=== PATIENT | female | born 1940 | race Hispanic/Latino ===

== ENCOUNTER 2017-05-17 12:38 | Inpatient (IN) | payer MEDICARE ==
[2017-05-17 12:39] VITALS: BMI 32.4
[2017-05-17] MEDS ORDERED: diltiaZEM IVPB 100mg in NS 100 ML IV PRN ×2 (12:51→20:47)
[2017-05-17] MEDS ORDERED: Dextrose 50% SYRINGE Inj (50 ml) IVP STA (12:52)
[2017-05-17] MEDS ORDERED: Ipratropium 0.02% Inhal Soln (0.5 mg/2.5 ml) UD IH STA (12:54)
[2017-05-17] MEDS ORDERED: Aspirin 325 mg EC Tablets PO STA (12:56)
[2017-05-17 12:59] LABS: BASO # 0.02 K/mm3 (0.0-2.0); BASO % 0.1 % (0.0-3.0); EOS # 0.2 (0.0-0.7); EOS % 0.9 % (1.5-5.0); GRAN # 10.28 (1.4-6.5); GRAN % 62.3 % (50.0-68.0); LYMPH # 3.9 (1.2-3.4); LYMPH % 23.6 % (22.0-35.0); MEAN CELL VOLUME 97.6 fl (80.0-105.0); MEAN CORPUSCULAR HEMOGLOBIN 32.8 pg (25.0-35.0); MEAN CORPUSCULAR HGB CONC 33.6 g/dl (31.0-37.0); MEAN PLATELET VOLUME 11.6 fl (7.0-11.0); MONO # 2.2 (0.1-0.6); MONO % 13.1 % (1.0-6.0); RED CELL DISTRIBUTION WIDTH 13.6 % (11.5-14.5); WHITE BLOOD COUNT 16.5 10^3/ul (4.5-11.0)
[2017-05-17] MEDS ORDERED: Dextrose 50% SYRINGE Inj (50 ml) ONE (12:59)
--- NOTE | 2017-05-17 13:01 | ED PDOC ---
Arrival/HPI - General Chief Complaint: Palpitations Time Seen by Provider: 05/17/17 12:42 - History of Present Illness Narrative History of Present Illness (Text): A 75 year of female, whose past medical history includes chronic obstructive pulmonary disease, hypertension, hypercholesterolemia and diabetes, afib on ac presents bibems to the Emergency Room complaining of shortness of breath for 2 weeks/dry couyh/worsening pnd/hung / and decrementation of her et , limiting her ambulation aoround house . She reports the shortness of breath is worse on exertion originally and now even with rest , but deneis any peripheral edema/ chest pain. EMS found her in a narrow complex irregular tachycardia at 180-220, and w/ fsg in 50's and gave 20 mg then 30 mg cardizem ivp to bring rate to 130' s-140's. Pt drank orange juice to address her low bp. PMD Dr. Cordoba Past Medical History - Provider Review Nursing Documentation Reviewed: Yes - Infectious Disease Hx of Infectious Diseases: None - Tetanus Immunization Tetanus Immunization: Unknown - Reproductive Menopause: Yes - Cardiac Hx Cardiac Disorders: Yes Hx Hypertension: Yes Hx Peripheral Vascular Disease: Yes (peripheral neurapathy) Other/Comment: cardiac stent - Pulmonary Hx Asthma: Yes Hx Chronic Obstructive Pulmonary Disease (COPD): Yes - Neurological Hx Transient Ischemic Attacks (TIA): Yes - HEENT Hx HEENT Disorder: (allergic rhinitis) - Endocrine/Metabolic Hx Diabetes Mellitus Type 1: Yes - Hematological/Oncological Hx Blood Transfusions: No Hx Blood Transfusion Reaction: No - Musculoskeletal/Rheumatological Hx Musculoskeletal Disorders: (cervical disc disease) Hx Back Pain: Yes Hx Falls: No Hx Osteoarthritis: Yes Hx Spinal Stenosis: Yes (lumbar spine) - Gastrointestinal Hx Gastrointestinal Disorders: (ibs) - Psychiatric Hx Depression: Yes Hx Substance Use: No - Surgical History Hx Appendectomy: Yes Hx Cardiac Catheterization: Yes (06/27/2012) Hx Cholecystectomy: Yes Hx Coronary Artery Bypass Graft: Yes (2 stents 2009) Hx Coronary Stent: Yes (2009) - Anesthesia Hx Anesthesia Reactions: No Hx Malignant Hyperthermia: No - Suicidal Assessment Feels Threatened In Home Enviroment: No Family/Social History - Physician Review Nursing Documentation Reviewed: Yes Family/Social History: No Known Family HX Smoking Status: Never Smoked Hx Alcohol Use: No Hx Substance Use: No Allergies/Home Meds Allergies/Adverse Reactions: Allergies Penicillins Allergy (Verified 05/17/17 20:01) RASH shrimp Allergy (Verified 05/17/17 20:01) RASH clarithromycin Adverse Reaction (Verified 05/17/17 20:01) RASH Home Medications: Home Meds Medication Instructions Recorded Confirmed Furosemide 20 mg PO DAILY 01/24/12 05/17/17 Galantamine Hydrobromide [Razadyne] 24 mg PO DAILY 01/24/12 05/17/17 Rosuvastatin Calcium [Crestor] 10 mg PO DAILY 01/24/12 05/17/17 Review of Systems - Physician Review All systems were reviewed & negative as marked: Yes - Review of Systems Constitutional: Normal Eyes: Normal ENT: Normal Respiratory: SOB, Cough Cardiovascular: Normal Gastrointestinal: Normal Genitourinary Female: Normal Musculoskeletal: Normal Skin: Normal Neurological: Normal Endocrine: Normal Hemo/Lymphatic: Normal Psychiatric: Normal Physical Exam Vital Signs Reviewed: Yes Vital Signs Temp Pulse Resp BP Pulse Ox 05/17/17 20:03 131 H 17 143/67 96 05/17/17 19:52 137 H 156/90 H 05/17/17 19:13 104 H 18 161/110 H 96 05/17/17 19:05 98.1 F 05/17/17 19:00 120 H 16 138/85 96 05/17/17 18:52 136 H 151/108 H 05/17/17 14:44 135 H 145/81 05/17/17 14:39 136 H 16 135/87 96 05/17/17 14:14 153 H 120/84 05/17/17 14:01 161 H 158/80 H 05/17/17 13:38 161 H 144/73 05/17/17 13:05 149 H 161/116 H Temperature: Afebrile Blood Pressure: Hypertensive Pulse: Tachycardic Respiratory Rate: Normal Appearance: Positive for: Well-Appearing, Non-Toxic, Comfortable Pain Distress: None Mental Status: Positive for: Alert and Oriented X 3 Finger Stick Blood Glucose: 66 - Systems Exam Head: Present: Atraumatic, Normocephalic Pupils: Present: PERRL Extroacular Muscles: Present: EOMI Conjunctiva: Present: Normal Mouth: Present: Moist Mucous Membranes Neck: Present: Normal Range of Motion Respiratory/Chest: Present: Good Air Exchange, Other (slightly reduced bs bibasilarly ). No: Respiratory Distress, Accessory Muscle Use Cardiovascular: Present: Normal S1, S2, Irregular Rhythm, Peripheal Pulses Present, Tachycardic. No: Murmurs Abdomen: Present: Normal Bowel Sounds. No: Tenderness, Distention, Peritoneal Signs Back: Present: Normal Inspection Upper Extremity: Present: Normal Inspection. No: Cyanosis, Edema Lower Extremity: Present: Normal Inspection. No: Edema Neurological: Present: GCS=15, CN II-XII Intact, Speech Normal, Motor Func Grossly Intact, Normal Sensory Function, Normal Cerebellar Funct, Norm Deep Tendon Reflexes, Gait Normal, Memory Normal, Normal 2Pt Descrimination Skin: Present: Warm, Dry, Normal Color. No: Rashes Psychiatric: Present: Alert, Oriented x 3, Normal Insight, Normal Concentration Medical Decision Making ED Course and Treatment: Afib w/ RVR @ 153 bpm, no acute ischemic st-t segments, no arrythmogeic intervals 05/17/17 13:05 05/17/17 20:14 77 y/o woman w/ aformentioned comorbidities presents c/o 2 weeks of worsiening sob/hung , found to be in afib w/ rvr , rate control difficult to acheive, will be admitted to MICU as a result. - Lab Interpretations Lab Results: 05/17/17 12:50 05/17/17 12:50 Lab Results 05/17/17 13:57: Urine Color Yellow, Urine Appearance Sl cloudy, Urine pH 6.0, Ur Specific [place] 1.025, Urine Protein 30 H, Urine Glucose (UA) 250 H, Urine Ketones Negative, Urine Blood Negative, Urine Nitrate Negative, Urine Bilirubin Negative, Urine Urobilinogen 0.2, Ur Leukocyte Esterase Negative, Urine RBC Negative, Urine WBC 2 - 5, Ur Epithelial Cells 4 - 5, Urine Bacteria Few 05/17/17 13:00: pO2 85 H, VBG pH 7.37, VBG pCO2 41.0, VBG HCO3 23.7, VBG Total CO2 25.0, VBG O2 Sat (Calc) 97.3 H, VBG Base Excess -1.5 L, VBG Potassium 3.5 L , Glucose 209 H, Lactate 2.6 H, FiO2 21.0, Sodium 139.0, Chloride 109.0 H, Venous Blood Potassium 3.5 L 05/17/17 12:50: Sodium 141, Potassium 3.7, Chloride 108 H, Carbon Dioxide 21, Anion Gap 16, BUN 19, Creatinine 0.7, Est GFR ( Amer) > 60, Est GFR (Non- Af Amer) > 60, Random Glucose 79, Calcium 10.0, Total Bilirubin 0.7, AST 39 H, ALT 48, Alkaline Phosphatase 67, Lactate Dehydrogenase 543, Total Creatine Kinase 206, Troponin I 0.04 D, NT-Pro-B Natriuret Pep 2610 H, Total Protein 8.2 , Albumin 4.4, Globulin 3.8, Albumin/Globulin Ratio 1.2 05/17/17 12:50: PT 11.9, INR 1.08, APTT 28.6 05/17/17 12:50: WBC 16.5 H D, RBC 4.51, Hgb 14.8, Hct 44.0, MCV 97.6, MCH 32.8, MCHC 33.6, RDW 13.6, Plt Count 323, MPV 11.6 H, Gran % 62.3, Lymph % (Auto) 23.6 , [place] % (Auto) 13.1 H, Eos % (Auto) 0.9 L, Baso % (Auto) 0.1, Gran # 10.28 H, Lymph # 3.9 H, [place] # 2.2 H, Eos # 0.2, Baso # 0.02 - RAD Interpretation Radiology Orders: 05/17/17 14:26 CHEST PORTABLE [RAD] Stat - Medication Orders Current Medication Orders: Acetaminophen (Tylenol 325mg Tab) 650 mg PO Q6H PRN PRN Reason: Fever >100.4 F Albuterol/Ipratropium (Duoneb 3 Mg/0.5 Mg (3 Ml) Ud) 3 ml IH Q2H PRN PRN Reason: Shortness of Breath Last Admin: 05/17/17 20:04 Dose: 3 ml Aspirin (Ecotrin) 81 mg PO DAILY MIRNA Atorvastatin Calcium (Lipitor) 40 mg PO DAILY MIRNA Furosemide (Lasix) 40 mg IVP DAILY MIRNA diltiaZEM IVPB 100mg in NS (Cardizem 100mg In Ns) 100 mls @ 5 mls/hr IV .Q20H PRN; Protocol; 5 MG/HR PRN Reason: TITRATE PER MD ORDER Last Admin: 05/17/17 14:44 Dose: 20 mls/hr eMAR Start Stop Document 05/17/17 14:44 SE (Rec: 05/17/17 14:44 SE [id number]) Intravenous Solution Start Date 05/17/17 Start Time 14:44 MAR Pulse and Blood Pressure Document 05/17/17 14:44 SE (Rec: 05/17/17 14:44 SE [id number]) Pulse Pulse Rate (60-90 beats/min) 135 Blood Pressure Blood Pressure (100/60-150/90 mm Hg) 145/81 Doxycycline Hyclate 100 mg/ (Sodium Chloride) 100 mls @ 100 mls/hr IVPB Q12 MIRNA PRN Reason: Protocol Insulin Detemir (Levemir) 25 unit SC HS MIRNA Insulin Human Lispro (Humalog High) 0 units SC ACHS MIRNA PRN Reason: Protocol Insulin Human Regular (Humulin R Med) 0 units SC ACHS MIRNA PRN Reason: Protocol Levalbuterol HCl (Xopenex) 1.25 mg IH [id number] MIRNA Methylprednisolone (Solu-Medrol) 40 mg IV TID MIRNA Ondansetron HCl (Zofran Inj) 4 mg IVP Q6H PRN PRN Reason: Nausea/Vomiting Pantoprazole Sodium (Protonix Ec Tab) 40 mg PO 0630 MIRNA Verapamil HCl (Calan Tab) 80 mg PO TID MIRNA Discontinued Medications Aspirin (Ecotrin) 325 mg PO STAT STA Stop: 05/17/17 12:57 Last Admin: 05/17/17 13:19 Dose: 325 mg Dextrose (Dextrose 50% Inj) 50 ml IVP STAT STA Stop: 05/17/17 12:53 Last Admin: 05/17/17 12:58 Dose: 50 ml IVP Administration Document 05/17/17 12:58 SE (Rec: 05/17/17 12:58 SE [id number]) Charges for Administration # of IVP Administrations 1 Digoxin (Lanoxin) 0.25 mg IVP STAT STA Stop: 05/17/17 16:42 Last Admin: 05/17/17 16:48 Dose: 0.25 mg MAR Apical Pulse Rate Document 05/17/17 16:48 SE (Rec: 05/17/17 16:49 SE [id number]) Apical Pulse Rate Apical Pulse Rate (60-90 beats/min) 151 IVP Administration Document 05/17/17 16:48 SE (Rec: 05/17/17 16:49 SE [id number]) Charges for Administration # of IVP Administrations 1 Digoxin (Lanoxin) 0.25 mg IVP ONCE ONE Stop: 05/17/17 18:01 Last Admin: 05/17/17 18:02 Dose: 0.25 mg MAR Apical Pulse Rate Document 05/17/17 18:02 SE (Rec: 05/17/17 18:03 SE [id number]) Apical Pulse Rate Apical Pulse Rate (60-90 beats/min) 139 IVP Administration Document 05/17/17 18:02 SE (Rec: 05/17/17 18:03 SE [id number]) Charges for Administration # of IVP Administrations 1 Diltiazem HCl (Cardizem) 30 mg IVP STAT STA Stop: 05/17/17 14:11 Last Admin: 05/17/17 14:14 Dose: 30 mg IVP Administration Document 05/17/17 14:14 SE (Rec: 05/17/17 14:16 SE [id number]) Charges for Administration # of IVP Administrations 1 MAR Pulse and Blood Pressure Document 05/17/17 14:14 SE (Rec: 05/17/17 14:16 SE [id number]) Pulse Pulse Rate (60-90 beats/min) 153 Blood Pressure Blood Pressure (100/60-150/90 mm Hg) 120/84 diltiaZEM IVPB 100mg in NS (Cardizem 100mg In Ns) 100 mls @ 5 mls/hr IV .Q20H PRN; Protocol; 5 MG/HR PRN Reason: TITRATE PER MD ORDER Doxycycline Hyclate 100 mg/ (Sodium Chloride) 100 mls @ 100 mls/hr IVPB ONCE ONE PRN Reason: Protocol Stop: 05/17/17 13:52 Last Admin: 05/17/17 13:54 Dose: 100 mls/hr Comments: late due to waiting on pharm to send med eMAR Start Stop Document 05/17/17 13:54 SE (Rec: 05/17/17 13:54 SE [id number]) Intravenous Solution Start Date 05/17/17 Start Time 13:54 Sodium Chloride (Sodium Chloride 0.9%) 500 mls @ 999 mls/hr IV .Q31M STA Stop: 05/17/17 14:53 Last Admin: 05/17/17 14:26 Dose: 999 mls/hr eMAR Start Stop Document 05/17/17 14:26 SE (Rec: 05/17/17 14:26 SE [id number]) Intravenous Solution Start Date 05/17/17 Start Time 14:26 Sodium Chloride (Sodium Chloride 0.9%) 500 mls @ 999 mls/hr IV .Q31M STA Stop: 05/17/17 14:57 Last Admin: 05/17/17 14:48 Dose: Ipratropium [place] (Atrovent) 0.5 mg IH STAT STA Stop: 05/17/17 12:55 Last Admin: 05/17/17 13:04 Dose: 0.5 mg Methylprednisolone (Solu-Medrol) 125 mg IVP STAT STA Stop: 05/17/17 12:53 Last Admin: 05/17/17 12:58 Dose: 125 mg IVP Administration Document 05/17/17 12:58 SE (Rec: 05/17/17 12:59 SE [id number]) Charges for Administration # of IVP Administrations 1 Metoprolol Tartrate (Lopressor) 5 mg IVP STAT STA Stop: 05/17/17 18:24 Last Admin: 05/17/17 18:52 Dose: 5 mg IVP Administration Document 05/17/17 18:52 SE (Rec: 05/17/17 18:53 SE [id number]) Charges for Administration # of IVP Administrations 1 MAR Pulse and Blood Pressure Document 05/17/17 18:52 SE (Rec: 05/17/17 18:53 SE [id number]) Pulse Pulse Rate (60-90 beats/min) 136 Blood Pressure Blood Pressure (100/60-150/90 mm Hg) 151/108 Metoprolol Tartrate (Lopressor) 5 mg IVP STAT STA Stop: 05/17/17 19:44 Last Admin: 05/17/17 19:52 Dose: 5 mg IVP Administration Document 05/17/17 19:52 SE (Rec: 05/17/17 19:55 SE [id number]) Charges for Administration # of IVP Administrations 1 MAR Pulse and Blood Pressure Document 05/17/17 19:52 SE (Rec: 05/17/17 19:55 SE [id number]) Pulse Pulse Rate (60-90 beats/min) 137 Blood Pressure Blood Pressure (100/60-150/90 mm Hg) 156/90 Disposition/Present on Arrival - Present on Arrival Any Indicators Present on Arrival: No History of DVT/PE: No History of Uncontrolled Diabetes: No Urinary Catheter: No History of Decub. Ulcer: No History Surgical Site Infection Following: None - Disposition Have Diagnosis and Disposition been Completed?: Yes Diagnosis: COPD exacerbation, CHF (congestive heart failure), Atrial fibrillation Disposition: HOSPITALIZED Disposition Time: 20:13 Patient Plan: ICU Condition: FAIR
[2017-05-17] MEDS: diltiaZEM IVPB 100mg in NS 100 ML IV PRN ×6 (13:05→20:51)
[2017-05-17 13:12] LABS: ALB/GLOB RATIO 1.2 (1.1-1.8); ALKALINE PHOSPHATASE 67 U/L (38-126); ALT/SGPT 48 U/L (7-56); AST/SGOT 39 U/L (14-36); BILIRUBIN,TOTAL 0.7 mg/dL (0.2-1.3); BLOOD UREA NITROGEN 19 mg/dL (7-21); CARBON DIOXIDE 21 mmol/L (21-33); CHLORIDE 108 mmol/L (98-107); GFR AFRICAN-AMERICAN > 60; GLUCOSE,RANDOM 79 mg/dL (70-110); POTASSIUM 3.7 mmol/L (3.6-5.0); SODIUM 141 mmol/L (132-148); TOTAL PROTEIN 8.2 g/dL (5.8-8.3)
[2017-05-17 13:18] LABS: INR 1.08 (0.93-1.08)
[2017-05-17 13:19] LABS: PARTIAL THROMBOPLASTIN TIME 28.6 Seconds (25.1-36.5)
[2017-05-17 13:24] LABS: TROPONIN I 0.04 ng/mL
[2017-05-17 13:27] LABS: VENOUS BLOOD GAS BASE EXCESS -1.5 mmol/L (0.0-2.0); VENOUS BLOOD PH 7.37 (7.32-7.43)
[2017-05-17 14:08] LABS: URINE BILIRUBIN NEGATIVE (NEGATIVE); URINE BLOOD NEGATIVE (NEGATIVE); URINE GLUCOSE (UA) 250 mg/dL (NEGATIVE); URINE KETONE NEGATIVE (NEGATIVE); URINE LEUKOCYTE ESTERASE NEGATIVE Leu/uL (NEGATIVE); URINE PROTEIN 30 mg/dL (<30 mg/dL); URINE UROBILINOGEN 0.2 E.U./dL (<1 E.U./dL)
[2017-05-17 14:16] LABS: URINE APPEARANCE SL CLOUDY (CLEAR); URINE COLOR YELLOW (YELLOW)
[2017-05-17 14:19] LABS: URINE BACTERIA FEW (NEG); URINE RBC NEGATIVE /hpf (0-2)
[2017-05-17] MEDS ORDERED: Sodium Chloride 0.9% 500 ML IV STA ×2 (14:23→14:27)
--- NOTE | 2017-05-17 14:45 | RAD ---
HISTORY: r/o pneumonia COMPARISON: 11/19/2015 chest x-ray CT chest 2010 FINDINGS: LUNGS: Left basal increase opacity likely relating to interval left pleural effusion/ thickening with mild subsegmental compressive atelectasis with or without underlying infiltrate here. PLEURA: Interval left pleural effusion no pneumothorax apparent. CARDIOVASCULAR: Cardiomegaly -more conspicuous - likely in part due to current technique OSSEOUS STRUCTURES: Thoracic spondylosis and bilateral shoulder arthrosis. Old healed deformed right lateral rib fractures VISUALIZED UPPER ABDOMEN: Normal. OTHER FINDINGS: None. IMPRESSION: Interval left inferolateral small pleural effusion with or without pleural thickening. Subsegmental concomitant compressive atelectasis and or infiltrate here is inferred. Mild cardiomegaly. Probable mild interval pulmonary venous congestion. Comments the patient has been known for several years to have a prominent right hilum this appearance is even stable with the CT chest from 2010
[2017-05-17] MEDS ORDERED: Digoxin 500 mcg/2ml (0.5 mg/2ml) Inj IVP STA (16:41)
[2017-05-17] MEDS ORDERED: Digoxin 500 mcg/2ml (0.5 mg/2ml) Inj IVP ONE ×2 (18:00→22:57)
[2017-05-17] MEDS ORDERED: Albuterol-Ipratrop 3 mg / 0.5 (3 ml) UD IH PRN (18:13)
[2017-05-17] MEDS ORDERED: Metoprolol 1 mg/ml Inj IVP STA ×3 (18:23→19:44)
--- NOTE | 2017-05-17 19:15 | CP.PCM.CON ---
<Kevan Weaver - Last Filed: 05/17/17 20:32> History of Present Illness - History of Present Illness History of Present Illness: ICU Consult note. Dr. Silva 77yo F with PMHx of COPD, HTN, HLD, DM, A.Fib here for evaluation of worsening shortness of breath. Patient states that she has had SOB for the past two weeks and was evaluated by her Math Coach. She was started on a steroid taper and has been improving. She woke up this morning and states that the SOB was much worse. She also complained of chest discomfort described as "palpitations radiating down to abdomen." She was brought to the hospital by EMS, found to have narrow complex tachycardia, and Blood glucose of 55 which improved after drinking orange juice. She Denies any Fevers, chills. States that her shortness of breath is much better now. Denies N/V/D. No Abd pain. No headaches. No dizziness. No fatigue. PMD: Cadrufina Pulm: Adalid Cardio: Rian PMHx: COPD, HTN, HLD, DM, Atrial Fibrillation PSHx: Cardiac stents 2015 at [facility] Family Hx: Denies Social Hx: denies ever smoker. Does report significant second-hand smoke exposure. Denies ETOH use. Denies any illicit drugs Allergy: PCNs, Shrimp, Clarithromycin Review of Systems - Review of Systems All systems: reviewed and no additional remarkable complaints except - Constitutional Constitutional: absent: Chills, Fever - Cardiovascular Cardiovascular: Chest Pain, Dyspnea, Dyspnea on Exertion - Respiratory Respiratory: Cough, Dyspnea - Gastrointestinal Gastrointestinal: absent: Abdominal Pain, Nausea, Vomiting - Genitourinary Genitourinary: absent: Change in Urinary Stream, Dysuria Past Patient History - Infectious Disease Hx of Infectious Diseases: None - Tetanus Immunizations Tetanus Immunization: Unknown - Past Social History Smoking Status: Never Smoked - CARDIAC Hx Cardiac Disorders: Yes Hx Hypertension: Yes Hx Peripheral Vascular Disease: Yes (peripheral neurapathy) Other/Comment: cardiac stent - PULMONARY Hx Asthma: Yes Hx Chronic Obstructive Pulmonary Disease (COPD): Yes - NEUROLOGICAL Hx Transient Ischemic Attacks (TIA): Yes - HEENT Hx HEENT Problems: (allergic rhinitis) - ENDOCRINE/METABOLIC Hx Diabetes Mellitus Type 1: Yes - HEMATOLOGICAL/ONCOLOGICAL Hx Blood Transfusions: No Hx Blood Transfusion Reaction: No - MUSCULOSKELETAL/RHEUMATOLOGICAL Hx Musculoskeletal Disorders: (cervical disc disease) Hx Back Pain: Yes Hx Falls: No Hx Osteoarthritis: Yes Hx Spinal Stenosis: Yes (lumbar spine) - GASTROINTESTINAL Hx Gastrointestinal Disorders: (ibs) - PSYCHIATRIC Hx Depression: Yes Hx Substance Use: No - SURGICAL HISTORY Hx Appendectomy: Yes Hx Cardiac Catheterization: Yes (06/27/2012) Hx Cholecystectomy: Yes Hx Coronary Artery Bypass Graft: Yes (2 stents 2009) Hx Coronary Stent: Yes (2009) - ANESTHESIA Hx Anesthesia Reactions: No Hx Malignant Hyperthermia: No Meds Allergies/Adverse Reactions: Allergies Allergy/AdvReac Type Severity Reaction Status Date / Time Penicillins Allergy RASH Verified 05/17/17 20:01 shrimp Allergy RASH Verified 05/17/17 20:01 clarithromycin AdvReac RASH Verified 05/17/17 20:01 - Medications Medications: Current Medications Acetaminophen (Tylenol 325mg Tab) 650 mg PO Q6H PRN PRN Reason: Fever >100.4 F Albuterol/Ipratropium (Duoneb 3 Mg/0.5 Mg (3 Ml) Ud) 3 ml IH Q2H PRN PRN Reason: Shortness of Breath Aspirin (Ecotrin) 81 mg PO DAILY MIRNA Atorvastatin Calcium (Lipitor) 40 mg PO DAILY MIRNA Furosemide (Lasix) 40 mg IVP DAILY MIRNA diltiaZEM IVPB 100mg in NS (Cardizem 100mg In Ns) 100 mls @ 5 mls/hr IV .Q20H PRN; Protocol; 5 MG/HR PRN Reason: TITRATE PER MD ORDER Last Admin: 05/17/17 14:44 Dose: 20 mls/hr Doxycycline Hyclate 100 mg/ (Sodium Chloride) 100 mls @ 100 mls/hr IVPB Q12 MIRNA PRN Reason: Protocol Insulin Detemir (Levemir) 25 unit SC HS MIRNA Insulin Human Lispro (Humalog High) 0 units SC ACHS MIRNA PRN Reason: Protocol Insulin Human Regular (Humulin R Med) 0 units SC ACHS MIRNA PRN Reason: Protocol Levalbuterol HCl (Xopenex) 1.25 mg IH [id number] MIRNA Methylprednisolone (Solu-Medrol) 40 mg IV TID MIRNA Ondansetron HCl (Zofran Inj) 4 mg IVP Q6H PRN PRN Reason: Nausea/Vomiting Pantoprazole Sodium (Protonix Ec Tab) 40 mg PO 0630 MIRNA Verapamil HCl (Calan Tab) 80 mg PO TID MIRNA Physical Exam - Constitutional Appears: Well, No Acute Distress - Head Exam Head Exam: ATRAUMATIC, NORMAL INSPECTION, NORMOCEPHALIC - Eye Exam Eye Exam: EOMI, Normal appearance - ENT Exam ENT Exam: Mucous Membranes Moist - Respiratory Exam Respiratory Exam: Clear to Auscultation Bilateral, NORMAL BREATHING PATTERN. absent: Accessory Muscle Use, Decreased Breath Sounds, Rhonchi, Wheezes - Cardiovascular Exam Cardiovascular Exam: Tachycardia, Irregular Rhythm. absent: JVD - GI/Abdominal Exam GI & Abdominal Exam: Soft. absent: Distended, Guarding, Rebound, Rigid, Tenderness - Extremities Exam Extremities exam: Positive for: normal inspection. Negative for: calf tenderness, pedal edema - Back Exam Back exam: NORMAL INSPECTION - Neurological Exam Neurological exam: Alert, CN II-XII Intact, Oriented x3 - Psychiatric Exam Psychiatric exam: Normal Affect, Normal Mood - Skin Skin Exam: Dry, Intact, Normal Color, Warm Results - Vital Signs Recent Vital Signs: Last Vital Signs Temp 98.1 F 05/17/17 19:05 Pulse 120 H 05/17/17 19:00 Resp 16 05/17/17 19:00 BP 138/85 05/17/17 19:00 Pulse Ox 96 05/17/17 19:00 - Labs Result Diagrams: 05/17/17 12:50 05/17/17 12:50 Assessment & Plan - Assessment and Plan (Free Text) Assessment: 77yo F with PMHx of COPD, HTN, HLD, DM, and Atrial Fibrillation here with AFib w /RVR refractory to treatment in the ED. Patient is currently hemodynamically stable, comfortable. Neuro: Alert and Oriented x3 No distress Pulmonary: Shortness of breath moderately improved CXR - increased vascular congestion. Left diaphragmatic angle blurred, consider infiltrate vs. atalectasis Continue Doxy q12 Xopenex treatments f/u D-Dimer f/u ABG Cardiac: Currently in A.Fib w/RVR continue Cardizem ggt Metoprolol 5mg IVP q4 prn Troponin 0.04. F/u repeat troponins BNP elevated f/u ECHO f/u TSH/T4 GI: continue diet Protonix Renal: Monitor and replete electrolytes as necessary ID: Consider left lower lobe infiltrate vs. atalectasis Leukocytosis in the setting of recent steroids Afebrile continue Doxy f/u Cultures Heme: Leukocytosis in the setting of recent steroid use Hemodynamically stable f/u AM labs PPx: Protonix SCDs Heparin SC Discussed case with Dr. Ricardo Weaver PGY1 <Adam Silva Q - Last Filed: 05/17/17 22:44> Meds - Medications Medications: Current Medications Acetaminophen (Tylenol 325mg Tab) 650 mg PO Q6H PRN PRN Reason: Fever >100.4 F Albuterol/Ipratropium (Duoneb 3 Mg/0.5 Mg (3 Ml) Ud) 3 ml IH Q2H PRN PRN Reason: Shortness of Breath Last Admin: 05/17/17 20:04 Dose: 3 ml Aspirin (Ecotrin) 81 mg PO DAILY MIRNA Atorvastatin Calcium (Lipitor) 40 mg PO DAILY MIRNA Benzonatate (Tessalon Perles) 100 mg PO BID PRN PRN Reason: Cough Digoxin (Lanoxin) 0.25 mg IVP 1400 MIRNA Furosemide (Lasix) 40 mg IVP DAILY MIRNA Doxycycline Hyclate 100 mg/ (Sodium Chloride) 100 mls @ 100 mls/hr IVPB Q12 MIRNA PRN Reason: Protocol Last Admin: 05/17/17 22:22 Dose: 100 mls/hr diltiaZEM IVPB 100mg in NS (Cardizem 100mg In Ns) 100 mls @ 5 mls/hr IV .Q20H PRN; Protocol; 5 MG/HR PRN Reason: TITRATE PER MD ORDER Last Titration: 05/17/17 21:01 Dose: 20 mg/hr, 20 mls/hr Insulin Detemir (Levemir) 25 unit SC HS [facility] Last Admin: 05/17/17 22:22 Dose: 25 unit Insulin Human Lispro (Humalog High) 0 units SC ACHS MIRNA PRN Reason: Protocol Last Admin: 05/17/17 22:19 Dose: Not Given Insulin Human Regular (Humulin R Med) 0 units SC ACHS MIRNA PRN Reason: Protocol Levalbuterol HCl (Xopenex) 1.25 mg IH [id number] MIRNA Last Admin: 05/17/17 20:58 Dose: 1.25 mg Methylprednisolone (Solu-Medrol) 40 mg IV TID MIRNA Metoprolol Tartrate (Lopressor) 5 mg IVP Q4H PRN PRN Reason: Heart rate Ondansetron HCl (Zofran Inj) 4 mg IVP Q6H PRN PRN Reason: Nausea/Vomiting Pantoprazole Sodium (Protonix Ec Tab) 40 mg PO 0630 MIRNA Verapamil HCl (Calan Tab) 80 mg PO TID MIRNA Results - Vital Signs Recent Vital Signs: Last Vital Signs Temp 98.1 F 05/17/17 19:05 Pulse 137 H 05/17/17 21:01 Resp 18 05/17/17 21:01 BP 134/78 05/17/17 21:01 Pulse Ox 98 05/17/17 21:01 - Labs Result Diagrams: 05/17/17 12:50 05/17/17 12:50 Labs: Laboratory Results - last 24 hr 05/17/17 05/17/17 05/17/17 19:31 19:31 21:30 pCO2 29 L pO2 21 L 63.0 L HCO3 20.6 L ABG pH 7.46 H ABG Total CO2 21.5 L ABG O2 Saturation 94.4 L ABG O2 Content 18.4 ABG Base Excess -2.0 ABG Hemoglobin 14.2 ABG Carboxyhemoglobin 1.8 H POC ABG HHb (Measured) 5.5 H ABG Methemoglobin 0.6 ABG O2 Capacity 19.5 VBG pH 7.34 VBG pCO2 48.0 VBG HCO3 25.9 VBG Total CO2 27.4 VBG O2 Sat (Calc) 40.9 VBG Base Excess -0.4 L VBG Potassium 5.1 Hgb O2 Saturation 92.1 L Sodium 136.0 Chloride 101.0 Glucose 294 H Lactate 2.1 FiO2 21.0 28.0 POC Glucose (mg/dL) Troponin I 0.03 D Triglycerides 120 Cholesterol 189 LDL Cholesterol Direct 138 H HDL Cholesterol 39 Venous Blood Potassium 5.1 05/17/17 22:06 pCO2 pO2 HCO3 ABG pH ABG Total CO2 ABG O2 Saturation ABG O2 Content ABG Base Excess ABG Hemoglobin ABG Carboxyhemoglobin POC ABG HHb (Measured) ABG Methemoglobin ABG O2 Capacity VBG pH VBG pCO2 VBG HCO3 VBG Total CO2 VBG O2 Sat (Calc) VBG Base Excess VBG Potassium Hgb O2 Saturation Sodium Chloride Glucose Lactate FiO2 POC Glucose (mg/dL) 295 H Troponin I Triglycerides Cholesterol LDL Cholesterol Direct HDL Cholesterol Venous Blood Potassium Attending/Attestation - Attestation I have personally seen and examined this patient.: Yes I have fully participated in the care of the patient.: Yes I have reviewed all pertinent clinical information: Yes Notes (Text): 05/17/17 22:30 I agree with the above mentioned note and exam by the resident with the addition of the followin77 y/o female with a PMHx DM, COPD, chronic Afib, pul htn presented to the ED with shortness of breath ongoing for 2 weeks along with Afib w/rvr. Attempts using multiple pharmacologic agents in the ED were unsuccessful so the patient will be continued on a Cardizem gtt along with prn medications for rate control. She will also be worked up for any acute infectious/reversible etiology. Patient started on Doxy in the ED which has been continued for atypical coverage of a possible CAP; will send patient for a CTA Chest to rule out PE and she has been started on therapeutic anticoagulation with lovenox. Will check 2decho tomorrow to evaluate for structural heart disease/Heart failure. Case discussed with Dr. Mcgovern in the ED labs and imaging reviewed personally thus far total time of care: 40 minutes
[2017-05-17 19:42] LABS: VENOUS BLOOD GAS BASE EXCESS -0.4 mmol/L (0.0-2.0); VENOUS BLOOD PH 7.34 (7.32-7.43)
[2017-05-17 20:02] LABS: TROPONIN I 0.03 ng/mL
[2017-05-17] MEDS ORDERED: Metoprolol 1 mg/ml Inj IVP PRN (20:27)
[2017-05-17] MEDS: Levalbuterol 1.25 MG/3 ML Inhal Soln UD IH SCH (20:58)
[2017-05-17 21:33] LABS: ARTERIAL BLOOD GAS HCO3 20.6 mmol/L (21-28); ARTERIAL BLOOD GAS O2 CAPACITY 19.5 mL/dl (16-24); ARTERIAL BLOOD GAS O2 CONTENT 18.4 ML/dl (15-23); ARTERIAL BLOOD GAS PH 7.46 (7.35-7.45); ARTERIAL BLOOD HGB O2 SAT 92.1 % (95.0-98.0); CARBOXYHEMOGLOBIN 1.8 % (0.5-1.5); HHB 5.5 % (0-5); METHEMOGLOBIN 0.6 % (0.0-3.0)
[2017-05-17] MEDS ORDERED: INSULIN DETEMIR 25 UNIT SC SCH (22:00)
[2017-05-17] MEDS ORDERED: Insulin Reg-MEDIUM-Coverage SC SCH (22:00)
[2017-05-17] MEDS ORDERED: Insulin Detemir 100 units/ml Vial (Levemir) SC SCH (22:00)
[2017-05-17] MEDS: Insulin Lispro (HUMAlog) HIGH Coverage SC SCH (22:19)
[2017-05-17] MEDS ORDERED: Iohexol 350 MG/100 ML VIAL ONE (22:34)
[2017-05-17] MEDS: Enoxaparin 80 mg Syringe SC SCH (23:00)
--- NOTE | 2017-05-17 23:17 | CARD ---
APPROVED REPORT EKG Measurement Heart [id number] <Conclusion> Atrial fibrillation with rapid ventricular response Nonspecific T wave abnormality, probably digitalis effect Abnormal ECG
--- NOTE | 2017-05-18 00:30 | CT ---
EXAM: CT Angiography Chest With Intravenous Contrast CLINICAL HISTORY: 77 years old, female; Signs and symptoms; Other: Hypoxia TECHNIQUE: Axial computed tomographic angiography images of the chest with intravenous contrast using pulmonary embolism protocol. All CT scans at this facility use one or more dose reduction techniques, viz.: automated exposure control; ma/kV adjustment per patient size (including targeted exams where dose is matched to indication; i.e. head); or iterative reconstruction technique. MIP reconstructed images were created and reviewed. Coronal and sagittal reformatted images were created and reviewed. CONTRAST: 95 mL of onnipaque 350 administered intravenously. COMPARISON: No relevant prior studies available. FINDINGS: Pulmonary arteries: No pulmonary embolism. Enlargement of the main, right and left pulmonary arteries, suggesting pulmonary hypertension. Aorta: No thoracic aortic aneurysm. No dissection. Lungs: No mass. Moderate bilateral pleural effusions with bibasilar consolidation. Pleural spaces: As above. Heart: The heart is enlarged, without significant pericardial effusion. Moderate left ventricular hypertrophy is noted. Bones: No acute fracture. Lymph nodes: Multiple minimally enlarged lymph nodes within the mediastinum, and nonspecific finding. IMPRESSION: No pulmonary embolism. Findings suggesting pulmonary hypertension. Moderate bilateral pleural effusions with bibasilar consolidation.
[2017-05-18] MEDS: Levalbuterol 1.25 MG/3 ML Inhal Soln UD IH SCH ×2 (01:44→08:55)
[2017-05-18] MEDS: diltiaZEM IVPB 100mg in NS 100 ML IV PRN ×3 (01:56→17:02)
[2017-05-18] MEDS ORDERED: Digoxin 500 mcg/2ml (0.5 mg/2ml) Inj IVP ONE (02:01)
[2017-05-18] MEDS: Pantoprazole 40 mg EC Tab PO SCH (06:20)
[2017-05-18 07:00] LABS: GRAN # 8.08 (1.4-6.5); HEMATOCRIT 40.4 % (36.0-48.0); LYMPH % 10.2 % (22.0-35.0); MEAN CELL VOLUME 95.7 fl (80.0-105.0); MEAN CORPUSCULAR HGB CONC 33.4 g/dl (31.0-37.0); MEAN PLATELET VOLUME 11.8 fl (7.0-11.0); MONO # 0.8 (0.1-0.6); MONO % 7.8 % (1.0-6.0); RED CELL DISTRIBUTION WIDTH 13.7 % (11.5-14.5); WHITE BLOOD COUNT 9.9 10^3/ul (4.5-11.0)
[2017-05-18 07:35] LABS: ALB/GLOB RATIO 1.2 (1.1-1.8); ALKALINE PHOSPHATASE 68 U/L (38-126); ALT/SGPT 42 U/L (7-56); AST/SGOT 28 U/L (14-36); BILIRUBIN,TOTAL 0.9 mg/dL (0.2-1.3); BLOOD UREA NITROGEN 17 mg/dL (7-21); CALCIUM 9.7 mg/dL (8.4-10.5); CARBON DIOXIDE 24 mmol/L (21-33); CHLORIDE 101 mmol/L (98-107); GFR AFRICAN-AMERICAN > 60; POTASSIUM 4.2 mmol/L (3.6-5.0); SODIUM 137 mmol/L (132-148); TOTAL PROTEIN 7.6 g/dL (5.8-8.3)
[2017-05-18 07:36] LABS: FREE T4 1.32 ng/dL (0.78-2.19)
[2017-05-18 07:38] LABS: TROPONIN I 0.02 ng/mL
[2017-05-18 07:56] LABS: THYROID STIMULATING HORMONE < 0.02 mIU/mL (0.46-4.68)
[2017-05-18] MEDS ORDERED: Levalbuterol 0.63 MG/3 ML Inhal Soln UD IH SCH (08:00)
[2017-05-18] MEDS ORDERED: Budesonide 0.5 mg/2 ml Inhal Susp UD IH SCH (08:00)
[2017-05-18 08:03] LABS: GLUCOSE,RANDOM 376 mg/dL (70-110)
[2017-05-18] MEDS: Insulin Lispro (HUMAlog) HIGH Coverage SC SCH ×2 (08:16→11:42)
--- NOTE | 2017-05-18 08:36 | RAD ---
HISTORY: interval changes COMPARISON: 05/17/2017. FINDINGS: LUNGS: The lungs are well inflated. There is persistent mild pulmonary venous congestion. There is bibasilar atelectasis. PLEURA: Again seen is a small left pleural effusion, no pneumothorax apparent. CARDIOVASCULAR: The cardiomediastinal silhouette is stable. OSSEOUS STRUCTURES: There are old fracture deformities in the right posterolateral seventh and 8th ribs. VISUALIZED UPPER ABDOMEN: Normal. OTHER FINDINGS: None. IMPRESSION: No change in pulmonary venous congestion and small left pleural effusion.
--- NOTE | 2017-05-18 09:08 | CON ---
DATE: 05/18/2017 REASON FOR CONSULTATION: Chronic obstructive pulmonary disease. REFERRING PHYSICIAN: Tod Woodruff MD HISTORY OF PRESENT ILLNESS: The patient is a 77-year-old female, with past medical history significant for chronic obstructive pulmonary disease, congestive heart failure, coronary artery disease, cardiac arrhythmias, hypertension and diabetes mellitus, who presents to [facility] with worsening shortness of breath at rest, dyspnea on exertion, and cough for the past 10 days. There is no history of sputum production. There is no history of chest pain, coughing up of blood, or chest pain - made worse with deep respirations. There is no history of temperatures, chills or infectious exposure. There is no history of night sweats, weight loss or appetite change prior to the above events. No history of leg or calf pains. No history of syncope or diaphoresis. No history of recent travel or trauma. REVIEW OF SYSTEMS: No history of nausea, vomiting or diarrhea. No acute urinary symptoms. No new neurologic or musculoskeletal complaints. Rest of the review of systems is negative. ALLERGIES: SHE HAS ALLERGIES TO PENICILLIN AND ERYTHROMYCIN. SOCIAL HISTORY: Negative for tobacco and negative for alcohol. Her was a heavy smoker. FAMILY HISTORY: No inheritable diseases. HOME MEDICATIONS: Include Levemir, furosemide, Ecotrin, Calan and Crestor. PHYSICAL EXAMINATION: GENERAL: The patient is mildly short of breath, but in no acute distress. She is not using accessory muscles for breathing. VITAL SIGNS: Temperature is 98.3, pulse is 141, respirations are approximately 22, and blood pressure is 109/80. Oxygen saturation on nasal cannula is 95%. HEENT: Normocephalic and atraumatic. No JVD. CARDIOVASCULAR: Systolic ejection murmur at the lower left sternal border. Positive S3 gallop. LUNGS: Decreased breath sounds with crackles at the bases. Minimal bilateral rhonchi. No wheezing. EXTREMITIES: Positive for edema. No cyanosis and no clubbing. Calves are nontender to palpation. GASTROINTESTINAL: Abdomen is soft, nontender, and nondistended. Bowel sounds are positive. SKIN: No acute rash. NEUROLOGIC: Exam is limited at the present time. PERTINENT LABORATORY DATA: Chest x-ray was done this morning and reviewed. There is a mild increase in pulmonary vascular congestion. There are small bilateral pleural effusions. CAT scan of the chest was also done as an angiogram protocol. The CT scan was done last night. There is no pulmonary embolism seen. There are small to moderate bilateral pleural effusions. There is bibasilar consolidations --adjacent to the pleural effusions. There is no lymphadenopathy. CBC: White count of 9.9, hemoglobin of 13.5, hematocrit of 40.4, and platelets of 310. Arterial blood gas was done on nasal cannula. Results are: PH of 7.46, pCO2 of 29, and pO2 of 63. Complete metabolic profile: Chloride of 108, AST of 39, and troponin of 0.04. B-type nature peptide of 2610. Rest of the metabolic profiles within normal limits. EKG was done in the Emergency Room last night. It is consistent with rapid atrial fibrillation. IMPRESSION 1. Acute congestive heart failure. 2. Rapid atrial fibrillation. 3. Chronic obstructive pulmonary disease. 4. Mild bronchospasm. 5. Bilateral pleural effusions. 6. Coronary artery disease. PLAN: The patient presents to [facility] with a 10-day history of worsening pulmonary symptoms. I did review the chest x-ray - done this morning. The x-ray is consistent with mild congestive heart failure and small bilateral pleural effusions. I have also reviewed the CT scan-- done as an angiogram protocol. There is no pulmonary embolism seen. There are increased interstitial changes noted on the CT scan. There are also small to moderate bilateral pleural effusions with adjacent consolidation. There is no lymphadenopathy. There is no pulmonary mass or nodule. Because of the rapid atrial fibrillation, the patient was admitted to the medical ICU. She is currently on a Cardizem drip. Dr. Lopez has been called on the case for Cardiology. On physical exam, there is only mild bronchospasm noted. I will continue the current nebulizer treatments(half strength), and decrease the intravenous steroids this morning. Repeat a.m. labs are pending. I will also order a chest x-ray for tomorrow - for comparison. The patient does feel much better this morning - compared to the past few days. She is clinically improved - but guarded. Additional pulmonary intervention will be based on the clinical status of the patient. I will discuss the above with the entire ICU team in the next few moments. I will also discuss the above with the attending physician. Thank you very much for this pulmonary consultation. Cliff Vaz MD SAVANAH
[2017-05-18] MEDS: MethylPREDNISolone 40 mg Vial IVP SCH ×2 (09:55→22:00)
[2017-05-18] MEDS: Enoxaparin 80 mg Syringe SC SCH ×2 (09:59→22:30)
[2017-05-18] MEDS ORDERED: MethylPREDNISolone 40 mg Vial IV SCH (10:00)
[2017-05-18] MEDS ORDERED: Non Formulary Medication (Rosuvastatin Calcium [Crestor] 10 MG) PO SCH (10:00)
--- NOTE | 2017-05-18 11:01 | CON ---
DATE: 05/18/2017 CARDIOLOGY CONSULTATION HISTORY OF PRESENT ILLNESS: The patient is a 77-year-old woman who presents with progressive shortness of breath over the past weeks since Thanksgiving. PAST MEDICAL HISTORY: Free of history of CHF or lung disease. She has had previous PTCA and stent in the past. She was found to be in atrial fibrillation with the heart rate varying from 120-160. The patient suffers from diabetes mellitus and hypertension. SOCIAL HISTORY: The patient does not smoke and has never smoked. REVIEW OF SYSTEMS: A 14-point review of systems was reviewed in detail. The patient does complain of dyspnea with minimal exertion, positive palpitations, negative angina plus/minus edema in the lower extremities. PHYSICAL EXAMINATION: VITAL SIGNS: Blood pressure is 139/70, the heart rate varies from atrial fibrillation from 120-160. NECK: Negative JVD. LUNGS: Decreased breath sounds at bases. No wheezing noted. HEART: Reveal S1 and S2. EXTREMITIES: Without edema. DIAGNOSTIC STUDIES: EKG is atrial fibrillation with nonspecific ST-T changes. Hemoglobin is 13.5. Glucose is 376, BUN and creatinine are unremarkable. Troponins are negative x2. The ProBNP is elevated at 2610. IMPRESSION: 1. New-onset atrial fibrillation with rapid ventricular rate. 2. Acute systolic congestive heart failure. 3. History of percutaneous transluminal coronary angioplasty and stent. 4. Coronary artery disease. 5. Diabetes mellitus. 6. Morbid obesity. 7. No evidence of bronchospasm at this time. PLAN: Given these findings, the patient is on high doses of IV Cardizem. Digoxin was added last night. We will add sotalol to help control the heart rate. We will need to discontinue her bronchodilators, which may be exacerbating her heart rate. We will obtain an echocardiogram today. Aubrey Lopez MD
[2017-05-18] MEDS: Digoxin 500 mcg/2ml (0.5 mg/2ml) Inj IVP SCH (14:00)
--- NOTE | 2017-05-18 15:58 | CARD ---
APPROVED REPORT EXAM: Two-dimensional and M-mode echocardiogram with Doppler and color Doppler. INDICATION EVALUATE LV DYSFUNCTION 2D DIMENSIONS Left Atrium (2D)4.7 (1.6-4.0cm)IVSd1.2 (0.7-1.1cm) LVDd3.8 (3.9-5.9cm)PWd1.2 (0.7-1.1cm) LVDs2.6 (2.5-4.0cm)FS (%) 31.6 % LVEF (%)60.3 (>50%) M-Mode DIMENSIONS Aortic Root2.90 (2.2-3.7cm)Aortic Cusp Exc.1.40 (1.5-2.0cm) Aortic Valve AoV Peak Ufuysmcn599.0cm/Flako Peak GR.9mmHg Mitral Valve E/A ratio0.0 TDI E/Lateral E'0.0E/Medial E'0.0 Pulmonary Valve PV Peak Sblhztni227.0cm/sPV Peak Grad.5mmHg Tricuspid Valve TR Peak [id number] [id number] Peak Gr.40mmHg [id number] LEFT VENTRICLE The left ventricle is normal size. There is borderline concentric left ventricular hypertrophy. The left ventricular function is normal. The left ventricular ejection fraction is within the normal range. There is normal LV segmental wall motion. A Fib RIGHT VENTRICLE The right ventricle is normal size. There is normal right ventricular wall thickness. The right ventricular systolic function is normal. ATRIA The left atrium is mildly dilated. The right atrium is mildly dilated. AORTIC VALVE The aortic valve is mildly sclerotic. There is trace aortic regurgitation. MITRAL VALVE The mitral valve is moderately thickened. Mitral regurgitation is mild. TRICUSPID VALVE There is moderate pulmonary hypertension. GREAT VESSELS The aortic root is normal in size. The IVC is normal in size and collapses >50% with inspiration. <Conclusion> The left ventricle is normal size. There is borderline concentric left ventricular hypertrophy. The left ventricular function is normal. The left ventricular ejection fraction is within the normal range. There is normal LV segmental wall motion. Mitral regurgitation is mild. There is moderate pulmonary hypertension.
[2017-05-18] MEDS: Insulin Lispro (humaLOG) LOW Coverage SC SCH ×2 (17:00→22:29)
[2017-05-18] MEDS: Insulin Lispro 1 UNITS/0.01 ML SC SCH (17:01)
[2017-05-18] MEDS ORDERED: Insulin Detemir 100 units/ml Vial (Levemir) SC SCH (22:00)
[2017-05-18] MEDS ORDERED: DiphenhydrAMINE 50 mg/ml Inj IVP ONE (22:34)
--- NOTE | 2017-05-19 01:24 | CON ---
DATE: 05/18/2017 HISTORY OF PRESENT ILLNESS: This is a 77-year-old lady with a history of COPD, hypertension, hyperlipidemia, diabetes, atrial fibrillation, who presented with shortness of breath and palpitations for about 2 weeks. She was evaluated by her link knitting machine operator who started her on steroid taper, and the patient has been improving since then. However, yesterday morning, she woke up realizing that shortness of breath was getting progressively worse. She also had some chest pain which she characterized as tightness associated with palpitation and radiating down to the abdomen. She was admitted to [facility] ER where she was found to have AFib with RVR and hypoglycemia which subsequently improved after drinking orange juice. In emergency room, the patient received digoxin and started on Cardizem drip, however heart rate continued to be uncontrolled. Overnight, the patient spent in the intensive care unit. She received additional doses of digoxin; however, her heart rate control only barely improved. In the morning, sotalol was added by cardiology service with subsequent improvement in rate control and her symptoms. Of note, the patient reports having history of hypothyroidism and had been treated with Synthroid. Nevertheless, her TSH was found to be less than 0.02. As she has been treated with steroid taper for presumed diagnosis of COPD exacerbation by link knitting machine operator, it is hard to interpret this finding. Nevertheless, endocrinology consult was called. Echocardiogram was ordered and two troponins came back negative. PAST MEDICAL HISTORY: COPD, hypertension, hyperlipidemia, diabetes, atrial fibrillation, hypothyroidism, on Synthroid. PAST SURGICAL HISTORY: Cardiac catheterization in 2014 at [facility]. FAMILY HISTORY: Noncontributory. SOCIAL HISTORY: The patient reports substantial exposure to secondhand smoking, however she did not smoke herself in her life. Denies alcohol abuse. ALLERGIES: PENICILLIN AND CLARITHROMYCIN. REVIEW OF SYSTEMS: The patient denies fever, chills, sweats, nausea, vomiting, diarrhea, constipation. Review of other 12-organ system is negative. PHYSICAL EXAMINATION: VITAL SIGNS: Today, heart rate 102, respiratory rate 24, blood pressure 115/42. HEENT/NECK: Head and neck atraumatic. LUNGS: Clear to auscultation bilaterally. HEART: Irregular rate and rhythm. S1 and S2 distant. ABDOMEN: Soft, nontender, nondistended. MUSCULOSKELETAL: No C/C/E. NEURO: The patient moves all extremities spontaneously. SKIN: Moist. PSYCH: The patient is alert and oriented x3. LABS: WBC 9.9, hemoglobin 15.5, platelet count 310. Sodium 137, potassium 4.2, chloride 101, carbon dioxide 24, BUN 17, creatinine 0.7, glucose 376 (long-acting formulation of insulin was added by primary medical doctor), AST 28, ALT 42. Free T4 2.47, which is slightly on lower side. Free T4 1.32. TSH less than 0.02. Troponin 0.02, down from 0.03. CT chest ruled out pulmonary embolism. Findings suggestive of pulmonary hypertension, moderate bilateral pleural effusion with bibasilar consolidation. Echocardiogram is pending. ASSESSMENT: This is a 77-year-old lady with hard to control atrial fibrillation with rapid ventricular response. Presently, the patient received sotalol on top of Cardizem drip and digoxin. Cardizem drip has gradually been weaned off. Despite low TSH, levels of T4 and T3 are not elevated. Endocrinology consult is still pending. Echocardiogram is ordered, two troponins are negative. Possibility of pulmonary hypertension due to cor pulmonale/chronic obstructive pulmonary disease cannot be ruled out based on CT chest finding. Pulmonary embolism ruled out though. The patient substantially improved subjectively and objectively. We will continue to target euvolemia, euglycemia, normothermia, and oxygen saturation greater than 90%. Once Cardizem drip weaned off, we will consider transferring the patient to telemetry. The patient is on steroid taper, bronchodilators, antibiotics for presumed chronic obstructive pulmonary disease exacerbation as well. We will continue with therapeutic anticoagulation for atrial fibrillation and gastrointestinal prophylaxis. ccm time 40 min Moses Willett MD SAVANAH
--- NOTE | 2017-05-19 04:18 | CON ---
DATE: ENDOCRINOLOGY CONSULTATION LOCATION: ICU 129, room 1. HISTORY OF PRESENT ILLNESS: This is a 77-year-old female with known history of type 2 insulin-requiring diabetes, presenting here with progressive shortness of breath and evaluated for acute exacerbation of COPD and has been started on IV steroid therapy with expected hyperglycemic acceleration and is now being referred for diabetic evaluation and management. PAST MEDICAL HISTORY: As mentioned above, type 2 insulin-requiring diabetes, using Levemir of 25 units subcu at bedtime daily with oral hypoglycemic therapy as given. History of hypertension and dyslipidemia. History of diabetic retinopathy and polyneuropathy, also history of coronary artery disease with previous coronary stent placement and also underlying peripheral arterial disease and vasculopathy. She also has severe bouts of COPD with previous admissions. The constipation is same. History of chronic atrial fibrillation and has been on oral antiplatelet therapy as noted. FAMILY HISTORY: Positive for diabetes and hypertension. SOCIAL HISTORY: The patient is with a very supportive family. No known substance use. REVIEW OF SYSTEMS: As mentioned above. Admits to generalized body weakness with easy fatigability and tiredness and suboptimal energy level. Also admits to episodic bouts and dizziness and lightheadedness, worse on the day of admission. Also admits to precordial chest pains with progressive shortness of breath, initially on exertion then at rest with paroxysmal nocturnal dyspnea. Also admits to bronchorrhea with productive cough as noted. Her oral intake has been variable and suboptimal with dyspepsia and chronic constipation. PHYSICAL EXAMINATION: GENERAL: This is an average-built female in no apparent distress. VITAL SIGNS: Blood pressure 140/80; pulse of 80 beats per minute, regular; temperature 99; respirations 20; height is 5 feet 3 inches, weight is 190 pounds. HEENT: Head normocephalic. Eyes anicteric with pink conjunctivae. Funduscopy not possible at this time. Ears, nose, and throat otherwise normal. NECK: Supple. Thyroid gland is normal in size. No carotid bruits or cervical adenopathy. CARDIOPULMONARY: Adynamic precordium. S1, S2 is rapid and regular. LUNGS: Clear to auscultation. ABDOMEN: Flat, soft with positive bowel sounds. EXTREMITIES: No peripheral edema. Pulses are +2 bilaterally. LABORATORY DATA: Her chemistry showed a BUN of 17, sodium 137, potassium 4.2, chloride 101, CO2 of 24, glucose 376, and creatinine 0.7. Hemoglobin A1c is pending at this time. ASSESSMENT AND PLAN: This is a 77-year-old female with uncontrolled and decompensated type 2 insulin-requiring diabetes, presenting here with acute exacerbation of chronic obstructive pulmonary disease and started on IV steroid therapy with transient hyperglycemic accelerations as expected thereof from the underlying increased insulin restrictions. She also has diabetic microvascular complications of retinopathy and polyneuropathy with diabetic macrovascular complications of coronary artery disease and peripheral arterial disease and vasculopathy. Plan of management was discussed with the patient and staff to modify her current insulin regimen and switch over just as inpatient diabetic management because of the intercurrent steroids and switch over to basal and bolus insulin regimen, which is more physiologic at this time. We will increase the Levemir to 34 units subcu at bedtime daily to start tonight. We will also add Humalog given as 8 units subcu t.i.d. before meals to start at dinnertime today as ordered. We will modify the coverage scale to obviate hypoglycemia and detailed orders have been given. We will obtain serial chemistries and supplement accordingly as needed. We will follow. Hamida Daniel MD
[2017-05-19] MEDS: Pantoprazole 40 mg EC Tab PO SCH (05:51)
[2017-05-19 06:57] LABS: GRAN # 9.56 (1.4-6.5); GRAN % 81.7 % (50.0-68.0); HEMATOCRIT 45.2 % (36.0-48.0); LYMPH # 1.3 (1.2-3.4); LYMPH % 11.2 % (22.0-35.0); MEAN CELL VOLUME 96.8 fl (80.0-105.0); MEAN CORPUSCULAR HEMOGLOBIN 32.5 pg (25.0-35.0); MEAN CORPUSCULAR HGB CONC 33.6 g/dl (31.0-37.0); MEAN PLATELET VOLUME 11.5 fl (7.0-11.0); MONO # 0.8 (0.1-0.6); MONO % 7.1 % (1.0-6.0); RED CELL DISTRIBUTION WIDTH 13.3 % (11.5-14.5); WHITE BLOOD COUNT 11.7 10^3/ul (4.5-11.0)
[2017-05-19 07:28] LABS: ALB/GLOB RATIO 1.2 (1.1-1.8); ALKALINE PHOSPHATASE 61 U/L (38-126); ALT/SGPT 27 U/L (7-56); AST/SGOT 24 U/L (14-36); BILIRUBIN,TOTAL 0.8 mg/dL (0.2-1.3); BLOOD UREA NITROGEN 31 mg/dL (7-21); CALCIUM 9.8 mg/dL (8.4-10.5); CARBON DIOXIDE 25 mmol/L (21-33); CHLORIDE 101 mmol/L (98-107); GFR AFRICAN-AMERICAN > 60; GLUCOSE,RANDOM 313 mg/dL (70-110); POTASSIUM 4.3 mmol/L (3.6-5.0); SODIUM 139 mmol/L (132-148); TOTAL PROTEIN 7.3 g/dL (5.8-8.3)
--- NOTE | 2017-05-19 08:17 | PN ---
PULMONARY NOTE DATE: 05/19/2017(610am--700am) SUBJECTIVE: The patient appears much more comfortable this morning. She is not short of breath at rest. PHYSICAL EXAMINATION VITAL SIGNS: Temperature is 98.0, pulse is 107, respirations 18/20, blood pressure 122/69. Oxygen saturation on nasal cannula is 94%. HEENT: Normocephalic, atraumatic. No JVD. CARDIOVASCULAR: Systolic ejection murmur at the lower left sternal border. Positive S3 gallop. LUNGS: Decreased breath sounds at the bases with crackles. Much less rhonchi. No wheezing. EXTREMITIES: Positive for edema. No cyanosis, no clubbing. Calves are nontender to palpation. GI: Abdomen is soft, nontender and nondistended. Bowel sounds are positive. SKIN: No acute rash. NEUROLOGIC: Exam limited at the present time. PERTINENT LABORATORY DATA: Chest x-ray was done this morning and reviewed. There is definite improvement - with a decrease in the pulmonary vascular congestion, as well as a decrease in the bilateral pleural effusions. CBC: White count 11.7, hemoglobin 15.2, hematocrit 45.2, platelets of 346,000. IMPRESSION: 1. Acute congestive heart failure. 2. Rapid atrial fibrillation. 3. Chronic obstructive pulmonary disease. 4. Mild bronchospasm. 5. Bilateral pleural effusions. 6. Coronary artery disease. PLAN: The patient appears much more comfortable this morning. She is not short of breath at rest. She does state to feeling much, much better overall. I did discuss the case with the night nurse at length. The night nurse stated that the patient had a very good night. I have also reviewed the chest x-ray-- done this morning. As above, the x-ray shows definite improvement. I would continue with the treatment for congestive heart failure and rapid atrial fibrillation as per Cardiology. I did discuss the case with Dr. Lopez at length yesterday. The nebulizer treatments were discontinued (by Dr. Lopez) - in an attempt to avoid any potential cardiac stimulants. On physical exam, she has only minimal bronchospasm this morning. I will decrease the intravenous steroids, and add back the inhaled Pulmicort. The inhaled Pulmicort should not have an effect on the patient's heart rate. I will continue to avoid beta agonists for the current time being. The patient remains on a Cardizem drip. Clinical status of the patient is significantly improved - compared to the initial presentation. I will discuss the above with the entire ICU team in the next few moments. I will also discuss the above with Dr. Woodruff later this morning. Cliff Vaz MD MTDEdgar
[2017-05-19] MEDS: Insulin Lispro 1 UNITS/0.01 ML SC SCH ×3 (08:33→16:22)
[2017-05-19] MEDS: Insulin Lispro (humaLOG) LOW Coverage SC SCH ×4 (08:34→22:10)
--- NOTE | 2017-05-19 09:08 | RAD ---
HISTORY: follow up COMPARISON: 05/18/2017 FINDINGS: LUNGS: The lungs are clear. PLEURA: No significant pleural effusion identified, no pneumothorax apparent. CARDIOVASCULAR: The heart is normal in size. Atherosclerotic aortic arch calcifications are present. OSSEOUS STRUCTURES: There is old fracture deformity in the right 7 posterolateral rib. There is diffuse bone demineralization. VISUALIZED UPPER ABDOMEN: Normal. OTHER FINDINGS: None. IMPRESSION: No acute findings.
[2017-05-19] MEDS: MethylPREDNISolone 40 mg Vial IVP SCH ×2 (09:46→21:28)
--- NOTE | 2017-05-19 10:05 | CP.PCM.CON ---
History of Present Illness - History of Present Illness History of Present Illness: Palliative consult requested by Dr Dianna Woodruff Reason: Goals of care/advance care planning 77 year old female with history of COPD, HTN,DM who presented with increasing shortness of breath over the past few weeks. She reports having seen her furniture assembly supervisor who prescribed steroids. She denied fever, chills, nausea,vomiting , abdominal pain.That morning she noted chest discomfort, palpitations and increased shortness of breath. EKG showed atrial fib with RVR. Blood glucose 55 , WBC 16.5, D- Dimer 391, BNP 2610. Chest CT showed cardiomegaly, pulmonary hypertension and bilateral pleural effusions with bibasilar consolidation. PMHx: COPD, HTN,CAD s/p stents,HLD,DM, atrial fibrillation. Social History: Never smoker, no alcohol or drug use. Lives independently. Family History:Non contributory. Advance Care Planning: The patient has an Advanced Directive. Her son Jose Dasilva is her health care proxy> [phone]. Review of Systems: As per HPI, all other systems reviewed and are negative Past Patient History - Infectious Disease Hx of Infectious Diseases: None - Tetanus Immunizations Tetanus Immunization: Unknown - Past Social History Smoking Status: Never Smoked - CARDIAC Hx Cardiac Disorders: Yes Hx Hypertension: Yes Hx Peripheral Vascular Disease: Yes (peripheral neurapathy) Other/Comment: cardiac stent - PULMONARY Hx Asthma: Yes Hx Chronic Obstructive Pulmonary Disease (COPD): Yes - NEUROLOGICAL Hx Transient Ischemic Attacks (TIA): Yes - HEENT Hx HEENT Problems: (allergic rhinitis) - ENDOCRINE/METABOLIC Hx Diabetes Mellitus Type 1: Yes - HEMATOLOGICAL/ONCOLOGICAL Hx Cancer: (Right breast lump removal no chemo) - MUSCULOSKELETAL/RHEUMATOLOGICAL Hx Musculoskeletal Disorders: (cervical disc disease) Hx Back Pain: Yes Hx Falls: No Hx Osteoarthritis: Yes Hx Spinal Stenosis: Yes (lumbar spine) - GASTROINTESTINAL Hx Gastrointestinal Disorders: (ibs) - PSYCHIATRIC Hx Depression: Yes - SURGICAL HISTORY Hx Appendectomy: Yes Hx Cardiac Catheterization: Yes (06/27/2012) Hx Cholecystectomy: Yes Hx Coronary Stent: Yes (2009) - ANESTHESIA Hx Anesthesia Reactions: No Hx Malignant Hyperthermia: No Meds Allergies/Adverse Reactions: Allergies Allergy/AdvReac Type Severity Reaction Status Date / Time Penicillins Allergy RASH Verified 05/17/17 20:01 shrimp Allergy RASH Verified 05/17/17 20:01 clarithromycin AdvReac RASH Verified 05/17/17 20:01 - Medications Medications: Current Medications Acetaminophen (Tylenol 325mg Tab) 650 mg PO Q6H PRN PRN Reason: Fever >100.4 F Aspirin (Ecotrin) 81 mg PO DAILY [facility] Last Admin: 05/19/17 09:45 Dose: 81 mg Atorvastatin Calcium (Lipitor) 40 mg PO DAILY [facility] Last Admin: 05/19/17 09:52 Dose: 40 mg Benzonatate (Tessalon Perles) 100 mg PO BID PRN PRN Reason: Cough Budesonide (Pulmicort Respules) 0.5 mg IH [id number] MIRNA Digoxin (Lanoxin) 0.25 mg IVP 1400 [facility] Last Admin: 05/18/17 14:00 Dose: 0.25 mg Enoxaparin Sodium (Lovenox) 80 mg SC Q12H MIRNA PRN Reason: Protocol Last Admin: 05/18/17 22:30 Dose: 80 mg Furosemide (Lasix) 40 mg IVP DAILY [facility] Last Admin: 05/19/17 09:43 Dose: 40 mg Doxycycline Hyclate 100 mg/ (Sodium Chloride) 100 mls @ 100 mls/hr IVPB Q12 MIRNA PRN Reason: Protocol Last Admin: 05/19/17 09:46 Dose: 100 mls/hr diltiaZEM IVPB 100mg in NS (Cardizem 100mg In Ns) 100 mls @ 5 mls/hr IV .Q20H PRN; Protocol; 5 MG/HR PRN Reason: TITRATE PER MD ORDER Last Titration: 05/18/17 17:07 Dose: 10 mg/hr, 10 mls/hr Insulin Detemir (Levemir) 34 unit SC HS [facility] Last Admin: 05/18/17 22:29 Dose: 34 unit Insulin Human Lispro (Humalog) 8 units SC AC [facility] Last Admin: 05/19/17 08:33 Dose: 8 units Insulin Human Lispro (Humalog Low) 0 units SC ACHS [facility] PRN Reason: Protocol Last Admin: 05/19/17 08:34 Dose: Not Given Methimazole (Tapazole) 10 mg PO BID [facility] Last Admin: 05/18/17 17:58 Dose: 10 mg Methylprednisolone (Solu-Medrol) 30 mg IVP Q12 [facility] Last Admin: 05/19/17 09:46 Dose: 30 mg Metoprolol Tartrate (Lopressor) 5 mg IVP Q4H PRN PRN Reason: Heart rate Last Admin: 05/18/17 08:23 Dose: 5 mg Ondansetron HCl (Zofran Inj) 4 mg IVP Q6H PRN PRN Reason: Nausea/Vomiting Pantoprazole Sodium (Protonix Ec Tab) 40 mg PO 0630 [facility] Last Admin: 05/19/17 05:51 Dose: 40 mg Sotalol HCl (Betapace) 80 mg PO BID [facility] Last Admin: 05/19/17 09:51 Dose: 80 mg Physical Exam - Constitutional Appears: No Acute Distress - Head Exam Head Exam: NORMAL INSPECTION - Eye Exam Eye Exam: Normal appearance, PERRL - ENT Exam ENT Exam: Mucous Membranes Moist, Normal Oropharynx - Neck Exam Neck exam: Positive for: Normal Inspection - Respiratory Exam Respiratory Exam: Decreased Breath Sounds, NORMAL BREATHING PATTERN - Cardiovascular Exam Cardiovascular Exam: Tachycardia, Irregular Rhythm, +S1, +S2 - GI/Abdominal Exam GI & Abdominal Exam: Normal Bowel Sounds, Soft Additional comments: no tenderness - Extremities Exam Extremities exam: Positive for: pedal edema, pedal pulses present - Back Exam Back exam: NORMAL INSPECTION - Neurological Exam Neurological exam: Alert, Oriented x3 - Psychiatric Exam Psychiatric exam: Normal Affect - Skin Skin Exam: Dry, Pallor - Additional Findings Additional findings: Palliative performance scale rating 70% Results - Vital Signs Recent Vital Signs: Last Vital Signs Temp 98 F 05/19/17 06:00 Pulse 121 H 05/19/17 09:51 Resp 20 05/19/17 06:29 BP 121/74 05/19/17 09:51 Pulse Ox 80 L 05/19/17 06:10 - Labs Result Diagrams: 05/19/17 06:35 05/19/17 06:35 Labs: Laboratory Results - last 24 hr 05/18/17 05/18/17 05/18/17 07:21 09:20 11:25 WBC RBC Hgb Hct MCV MCH MCHC RDW Plt Count MPV Gran % Lymph % (Auto) [place] % (Auto) Eos % (Auto) Baso % (Auto) Gran # Lymph # [place] # Eos # Baso # Sodium Potassium Chloride Carbon Dioxide Anion Gap BUN Creatinine Est GFR ( Amer) Est GFR (Non-Af Amer) POC Glucose (mg/dL) 333 H 230 H Random Glucose Calcium Phosphorus Magnesium Total Bilirubin AST ALT Alkaline Phosphatase Total Protein Albumin Globulin Albumin/Globulin Ratio Free T3 pg/mL 2.47 L 05/18/17 05/18/17 05/19/17 16:15 21:57 06:35 WBC 11.7 H RBC 4.67 Hgb 15.2 Hct 45.2 MCV 96.8 MCH 32.5 MCHC 33.6 RDW 13.3 Plt Count 346 MPV 11.5 H Gran % 81.7 H Lymph % (Auto) 11.2 L [place] % (Auto) 7.1 H Eos % (Auto) 0.0 L Baso % (Auto) 0.0 Gran # 9.56 H Lymph # 1.3 [place] # 0.8 H Eos # 0.0 Baso # 0.00 Sodium Potassium Chloride Carbon Dioxide Anion Gap BUN Creatinine Est GFR ( Amer) Est GFR (Non-Af Amer) POC Glucose (mg/dL) 326 H 288 H Random Glucose Calcium Phosphorus Magnesium Total Bilirubin AST ALT Alkaline Phosphatase Total Protein Albumin Globulin Albumin/Globulin Ratio Free T3 pg/mL 05/19/17 05/19/17 06:35 08:12 WBC RBC Hgb Hct MCV MCH MCHC RDW Plt Count MPV Gran % Lymph % (Auto) [place] % (Auto) Eos % (Auto) Baso % (Auto) Gran # Lymph # [place] # Eos # Baso # Sodium 139 Potassium 4.3 Chloride 101 Carbon Dioxide 25 Anion Gap 18 BUN 31 H Creatinine 0.8 Est GFR ( Amer) > 60 Est GFR (Non-Af Amer) > 60 POC Glucose (mg/dL) 282 H Random Glucose 313 H* Calcium 9.8 Phosphorus 4.0 Magnesium 2.0 Total Bilirubin 0.8 AST 24 ALT 27 Alkaline Phosphatase 61 Total Protein 7.3 Albumin 3.9 Globulin 3.4 Albumin/Globulin Ratio 1.2 Free T3 pg/mL Assessment & Plan - Assessment and Plan (Free Text) Assessment: 77 year old female with history of COPD,CAD s/p stents, DM ,HTN who is admitted with bilateral pleural effusions, CHF and atrial fibrillation with RVR. The patient is alert and oriented. She offers no complaints. She states she is feeling much better than she did. The patient confirms that she lives independently and does not need help with ADL's. She has a son Jose who lives in [place], [place] and is her health care surrogate. She also walker a niece and nephew that live nearby in [place]. The patient expressed that she has an Advanced Directive at home. Conversation involving advance care planning ensued. The patient states she does not want to be intubated nor does she want CPR. She also affirms that she does not want her life prolonged if her situation is terminal or irreversible. POLST directive explained, questions answered. POLST : DNR/DNI is completed, Jose Dasilva is health care surrogate. A copy is on the chart. Psychosocial support given. Time spent in goals of care and advance are planning discussion, 30 minutes Plan: Palliative support in establishing goals of care Advance are planning, POLST: DNR/DNI
--- NOTE | 2017-05-19 10:17 | PN ---
DATE: 05/19/2017 CARDIOLOGY FOLLOWUP SUBJECTIVE: The patient is comfortable in a chair, the heart rate still remains 120/140. The patient was taken off sotalol for questionable reasons. PHYSICAL EXAMINATION: VITAL SIGNS: Blood pressure is 146/95, the heart rate is in the 120s, atrial fibrillation. NECK: Negative JVD. LUNGS: Without rales. HEART: S1, S2. EXTREMITIES: Without edema. LABORATORY DATA: Echocardiogram reveals good LV function. The hemoglobin is 15.2, glucose is 313. IMPRESSION: 1. Atrial fibrillation with rapid ventricular rate. 2. Good left ventricular function. 3. Morbid obesity. 4. No evidence for bronchospasm. PLAN: Given these findings, we will add sotalol again. We will change her p.o. calcium channel titi to Cardizem once we understand her response to the sotalol. Aubrey Lopez MD
[2017-05-19] MEDS: Enoxaparin 80 mg Syringe SC SCH ×2 (10:19→22:10)
--- NOTE | 2017-05-19 10:39 | CP.CCUPN ---
<Raymon Smith - Last Filed: 05/19/17 13:24> CCU Subjective - Physician Review Subjective (Free Text): Critical care progress note - Komal Sarah PGY2 Patient seen and examined at bedside this morning. No acute overnight events or new complaints reported. Discussed plan with cardiology, Dr. Lopez this morning - Will start sotalol BID, discontinue verapamil with plan of transitioning patient to PO cardizem. Patient denied chest pain, palpitations, SOB this morning. Tolerating breakfast well. CCU Objective - Vital Signs / Intake & Output Vital Signs (Last 4 hours): Vital Signs Pulse BP 05/19/17 09:51 121 H 121/74 05/19/17 09:43 121/74 05/19/17 08:28 128 H 146/95 H Intake and Output (Last 8hrs): Intake & Output 05/18/17 05/19/17 05/19/17 22:59 06:59 14:59 Intake Total 1070 360 Output Total 1150 500 Balance -80 -140 Weight 189 lb 11.2 oz Intake: IV 230 220 Left Forearm 100 Right Forearm 230 120 Oral 840 140 Output: Urine 1150 500 Urine, Voided 1150 500 Other: # Bowel Movements 200 - Physical Exam Head: Positive for: Atraumatic, Normocephalic Pupils: Positive for: PERRL Extroacular Muscles: Positive for: EOMI Conjunctiva: Positive for: Normal Mouth: Positive for: Moist Mucous Membranes Neck: Positive for: Normal Range of Motion Respiratory/Chest: Negative for: Respiratory Distress, Accessory Muscle Use, Rales, Rhonchi Cardiovascular: Positive for: Normal S1, S2, Irregular Rhythm, Peripheal Pulses Present, Tachycardic. Negative for: Murmurs Abdomen: Positive for: Normal Bowel Sounds. Negative for: Tenderness, Distention, Peritoneal Signs Back: Positive for: Normal Inspection Upper Extremity: Positive for: Normal Inspection. Negative for: Cyanosis, Edema Lower Extremity: Positive for: Normal Inspection. Negative for: Edema Neurological: Positive for: GCS=15, CN II-XII Intact, Speech Normal, Motor Func Grossly Intact, Normal Sensory Function Skin: Positive for: Warm, Dry, Normal Color. Negative for: Rashes Psychiatric: Positive for: Alert, Oriented x 3, Normal Insight, Normal Concentration - Medications Active Medications: Active Medications Generic Name Dose Route Start Last Admin Trade Name Freq PRN Reason Stop Dose Admin Acetaminophen 650 mg 05/17/17 18:13 Tylenol 325mg Tab PO Q6H PRN Fever >100.4 F Aspirin 81 mg 05/18/17 10:00 05/19/17 09:45 Ecotrin PO 81 mg DAILY MIRNA Administration Atorvastatin Calcium 40 mg 05/18/17 10:00 05/19/17 09:52 Lipitor PO 40 mg DAILY MIRNA Administration Benzonatate 100 mg 05/17/17 20:30 Tessalon Perles PO BID PRN Cough Budesonide 0.5 mg 05/19/17 08:00 Pulmicort Respules IH [id number] MIRNA Digoxin 0.25 mg 05/18/17 14:00 05/18/17 14:00 Lanoxin IVP 0.25 mg 1400 MIRNA Administration Enoxaparin Sodium 80 mg 05/17/17 23:00 05/19/17 10:19 Lovenox SC 80 mg Q12H MIRNA Administration Protocol Furosemide 40 mg 05/18/17 10:00 05/19/17 09:43 Lasix IVP 40 mg DAILY MIRNA Administration Doxycycline Hyclate 100 mg/ 100 mls @ 100 mls/hr 05/17/17 22:00 05/19/17 09: 46 Sodium Chloride IVPB 100 mls/hr Q12 MIRNA Administration Protocol diltiaZEM IVPB 100mg in NS 100 mls @ 5 mls/hr 05/17/17 20:27 05/18/17 17:07 Cardizem 100mg In Ns IV 10 mg/hr .Q20H PRN 10 mls/hr TITRATE PER MD ORDER Titration Protocol 5 MG/HR Insulin Detemir 34 unit 05/18/17 22:00 05/18/17 22:29 Levemir SC 34 unit HS MIRNA Administration Insulin Human Lispro 8 units 05/18/17 16:30 05/19/17 08:33 Humalog SC 8 units AC MIRNA Administration Insulin Human Lispro 0 units 05/18/17 16:30 05/19/17 08:34 Humalog Low SC Not Given ACHS MIRNA Protocol Methimazole 10 mg 05/18/17 10:45 05/18/17 17:58 Tapazole PO 10 mg BID MIRNA Administration Methylprednisolone 30 mg 05/19/17 10:00 05/19/17 09:46 Solu-Medrol IVP 30 mg Q12 MIRNA Administration Metoprolol Tartrate 5 mg 05/17/17 20:27 05/18/17 08:23 Lopressor IVP 5 mg Q4H PRN Administration Heart rate Ondansetron HCl 4 mg 05/17/17 18:13 Zofran Inj IVP Q6H PRN Nausea/Vomiting Pantoprazole Sodium 40 mg 05/18/17 06:30 05/19/17 05:51 Protonix Ec Tab PO 40 mg 0630 MIRNA Administration Sotalol HCl 80 mg 05/19/17 10:00 05/19/17 09:51 Betapace PO 80 mg BID MIRNA Administration - Patient Studies Lab Studies: Lab Studies 05/19/17 05/19/17 05/19/17 Range/Units 08:12 06:35 06:35 WBC 11.7 H (4.5-11.0) 10^3/ul RBC 4.67 (3.5-6.1) 10^6/uL Hgb 15.2 (12.0-16.0) g/dL Hct 45.2 (36.0-48.0) % MCV 96.8 (80.0-105.0) fl MCH 32.5 (25.0-35.0) pg MCHC 33.6 (31.0-37.0) g/dl RDW 13.3 (11.5-14.5) % Plt Count 346 (120.0-450.0) 10^3/uL MPV 11.5 H (7.0-11.0) fl Gran % 81.7 H (50.0-68.0) % Lymph % (Auto) 11.2 L (22.0-35.0) % [place] % (Auto) 7.1 H (1.0-6.0) % Eos % (Auto) 0.0 L (1.5-5.0) % Baso % (Auto) 0.0 (0.0-3.0) % Gran # 9.56 H (1.4-6.5) Lymph # 1.3 (1.2-3.4) [place] # 0.8 H (0.1-0.6) Eos # 0.0 (0.0-0.7) Baso # 0.00 (0.0-2.0) K/mm3 Sodium 139 (132-148) mmol/L Potassium 4.3 (3.6-5.0) mmol/L Chloride 101 (98-107) mmol/L Carbon Dioxide 25 (21-33) mmol/L Anion Gap 18 (10-20) BUN 31 H (7-21) mg/dL Creatinine 0.8 (0.7-1.2) mg/dl Est GFR ( Amer) > 60 Est GFR (Non-Af Amer) > 60 POC Glucose (mg/dL) 282 H (65-110) mg/dL Random Glucose 313 H* (70-110) mg/dL Calcium 9.8 (8.4-10.5) mg/dL Phosphorus 4.0 (2.5-4.5) mg/dL Magnesium 2.0 (1.7-2.2) mg/dL Total Bilirubin 0.8 (0.2-1.3) mg/dL AST 24 (14-36) U/L ALT 27 (7-56) U/L Alkaline Phosphatase 61 (38-126) U/L Total Protein 7.3 (5.8-8.3) g/dL Albumin 3.9 (3.0-4.8) g/dL Globulin 3.4 gm/dL Albumin/Globulin Ratio 1.2 (1.1-1.8) Free T3 pg/mL (2.77-5.27) pg/mL 05/18/17 05/18/17 05/18/17 Range/Units 21:57 16:15 11:25 WBC (4.5-11.0) 10^3/ul RBC (3.5-6.1) 10^6/uL Hgb (12.0-16.0) g/dL Hct (36.0-48.0) % MCV (80.0-105.0) fl MCH (25.0-35.0) pg MCHC (31.0-37.0) g/dl RDW (11.5-14.5) % Plt Count (120.0-450.0) 10^3/uL MPV (7.0-11.0) fl Gran % (50.0-68.0) % Lymph % (Auto) (22.0-35.0) % [place] % (Auto) (1.0-6.0) % Eos % (Auto) (1.5-5.0) % Baso % (Auto) (0.0-3.0) % Gran # (1.4-6.5) Lymph # (1.2-3.4) [place] # (0.1-0.6) Eos # (0.0-0.7) Baso # (0.0-2.0) K/mm3 Sodium (132-148) mmol/L Potassium (3.6-5.0) mmol/L Chloride (98-107) mmol/L Carbon Dioxide (21-33) mmol/L Anion Gap (10-20) BUN (7-21) mg/dL Creatinine (0.7-1.2) mg/dl Est GFR ( Amer) Est GFR (Non-Af Amer) POC Glucose (mg/dL) 288 H 326 H 230 H (65-110) mg/dL Random Glucose (70-110) mg/dL Calcium (8.4-10.5) mg/dL Phosphorus (2.5-4.5) mg/dL Magnesium (1.7-2.2) mg/dL Total Bilirubin (0.2-1.3) mg/dL AST (14-36) U/L ALT (7-56) U/L Alkaline Phosphatase (38-126) U/L Total Protein (5.8-8.3) g/dL Albumin (3.0-4.8) g/dL Globulin gm/dL Albumin/Globulin Ratio (1.1-1.8) Free T3 pg/mL (2.77-5.27) pg/mL 05/18/17 05/18/17 Range/Units 09:20 07:21 WBC (4.5-11.0) 10^3/ul RBC (3.5-6.1) 10^6/uL Hgb (12.0-16.0) g/dL Hct (36.0-48.0) % MCV (80.0-105.0) fl MCH (25.0-35.0) pg MCHC (31.0-37.0) g/dl RDW (11.5-14.5) % Plt Count (120.0-450.0) 10^3/uL MPV (7.0-11.0) fl Gran % (50.0-68.0) % Lymph % (Auto) (22.0-35.0) % [place] % (Auto) (1.0-6.0) % Eos % (Auto) (1.5-5.0) % Baso % (Auto) (0.0-3.0) % Gran # (1.4-6.5) Lymph # (1.2-3.4) [place] # (0.1-0.6) Eos # (0.0-0.7) Baso # (0.0-2.0) K/mm3 Sodium (132-148) mmol/L Potassium (3.6-5.0) mmol/L Chloride (98-107) mmol/L Carbon Dioxide (21-33) mmol/L Anion Gap (10-20) BUN (7-21) mg/dL Creatinine (0.7-1.2) mg/dl Est GFR ( Amer) Est GFR (Non-Af Amer) POC Glucose (mg/dL) 333 H (65-110) mg/dL Random Glucose (70-110) mg/dL Calcium (8.4-10.5) mg/dL Phosphorus (2.5-4.5) mg/dL Magnesium (1.7-2.2) mg/dL Total Bilirubin (0.2-1.3) mg/dL AST (14-36) U/L ALT (7-56) U/L Alkaline Phosphatase (38-126) U/L Total Protein (5.8-8.3) g/dL Albumin (3.0-4.8) g/dL Globulin gm/dL Albumin/Globulin Ratio (1.1-1.8) Free T3 pg/mL 2.47 L (2.77-5.27) pg/mL Laboratory Results - last 24 hr 05/18/17 05/18/17 05/18/17 07:21 09:20 11:25 WBC RBC Hgb Hct MCV MCH MCHC RDW Plt Count MPV Gran % Lymph % (Auto) [place] % (Auto) Eos % (Auto) Baso % (Auto) Gran # Lymph # [place] # Eos # Baso # Sodium Potassium Chloride Carbon Dioxide Anion Gap BUN Creatinine Est GFR ( Amer) Est GFR (Non-Af Amer) POC Glucose (mg/dL) 333 H 230 H Random Glucose Calcium Phosphorus Magnesium Total Bilirubin AST ALT Alkaline Phosphatase Total Protein Albumin Globulin Albumin/Globulin Ratio Free T3 pg/mL 2.47 L 05/18/17 05/18/17 05/19/17 16:15 21:57 06:35 WBC 11.7 H RBC 4.67 Hgb 15.2 Hct 45.2 MCV 96.8 MCH 32.5 MCHC 33.6 RDW 13.3 Plt Count 346 MPV 11.5 H Gran % 81.7 H Lymph % (Auto) 11.2 L [place] % (Auto) 7.1 H Eos % (Auto) 0.0 L Baso % (Auto) 0.0 Gran # 9.56 H Lymph # 1.3 [place] # 0.8 H Eos # 0.0 Baso # 0.00 Sodium Potassium Chloride Carbon Dioxide Anion Gap BUN Creatinine Est GFR ( Amer) Est GFR (Non-Af Amer) POC Glucose (mg/dL) 326 H 288 H Random Glucose Calcium Phosphorus Magnesium Total Bilirubin AST ALT Alkaline Phosphatase Total Protein Albumin Globulin Albumin/Globulin Ratio Free T3 pg/mL 05/19/17 05/19/17 06:35 08:12 WBC RBC Hgb Hct MCV MCH MCHC RDW Plt Count MPV Gran % Lymph % (Auto) [place] % (Auto) Eos % (Auto) Baso % (Auto) Gran # Lymph # [place] # Eos # Baso # Sodium 139 Potassium 4.3 Chloride 101 Carbon Dioxide 25 Anion Gap 18 BUN 31 H Creatinine 0.8 Est GFR ( Amer) > 60 Est GFR (Non-Af Amer) > 60 POC Glucose (mg/dL) 282 H Random Glucose 313 H* Calcium 9.8 Phosphorus 4.0 Magnesium 2.0 Total Bilirubin 0.8 AST 24 ALT 27 Alkaline Phosphatase 61 Total Protein 7.3 Albumin 3.9 Globulin 3.4 Albumin/Globulin Ratio 1.2 Free T3 pg/mL Fingerstick Blood Sugar Results: 282 Critical Care Progress Note - Nutrition Nutrition: Nutrition Category Date Time Status Heart Healthy Diet [DIET] Diets 05/17/17 Breakfast Ordered Assessment/Plan - Assessment and Plan (Free Text) Plan: 77yo F with PMHx of COPD, HTN, HLD, DM, and Atrial Fibrillation here with AFib w /RVR refractory to treatment in the ED. Patient is currently hemodynamically stable, comfortable. Neuro: Alert and Oriented x3 No distress Pulmonary: bronchodilators discontinued by cardiology to prevent further beta stimulation Continue Doxy q12 CTA negative for PE maintain SaO2 > 90% Cardiac: Continue Cardizem ggt and patient started on sotalol 80mg BID as per cardiology recommendations; plan will be to transition her to PO cardizem if feasible Metoprolol 5mg IVP q4 prn Patient started on methimazole 10mg PO BID for hyperthyroidism; repeat TSH, T4, Free T4, Free T3 ordered for AM GI: tolerating diet without issue Protonix for GI prophylaxis Renal: Monitor and replete electrolytes as necessary Endo: Continue methimazole as ordered per endocrinology (Dr. Daniel) recommendations repeat TSH, T4, Free T4 ordered for tomorrow Maintain euglycemia with goal blood glucose between 140-180 ID: afebrile, Leukocytosis in the setting of recent steroids continue Doxycycline as per primary team blood culture negative over the last 24 hours Heme: currently on therapeutic lovenox as per cardiology recommendations PPx: protonix/lovenox Patient seen and case discussed/reviewed with attending, Dr. Willett <Moses Willett - Last Filed: 05/19/17 17:28> CCU Objective - Vital Signs / Intake & Output Vital Signs (Last 4 hours): Vital Signs Temp Pulse 05/19/17 16:04 98 H 05/19/17 16:00 98.1 F Intake and Output (Last 8hrs): Intake & Output 05/19/17 05/19/17 05/19/17 06:59 14:59 22:59 Intake Total 360 100 Output Total 500 Balance -140 100 Weight 189 lb 11.2 oz 189 lb 11.2 oz Intake: IV 220 100 Left Forearm 100 Right Forearm 120 Oral 140 Output: Urine 500 Urine, Voided 500 Other: # Bowel Movements 200 - Medications Active Medications: Active Medications Generic Name Dose Route Start Last Admin Trade Name Freq PRN Reason Stop Dose Admin Acetaminophen 650 mg 05/17/17 18:13 Tylenol 325mg Tab PO Q6H PRN Fever >100.4 F Aspirin 81 mg 05/18/17 10:00 05/19/17 09:45 Ecotrin PO 81 mg DAILY MIRNA Administration Atorvastatin Calcium 40 mg 05/18/17 10:00 05/19/17 09:52 Lipitor PO 40 mg DAILY MIRNA Administration Benzonatate 100 mg 05/17/17 20:30 Tessalon Perles PO BID PRN Cough Budesonide 0.5 mg 05/19/17 08:00 Pulmicort Respules IH [id number] MIRNA Digoxin 0.25 mg 05/18/17 14:00 05/19/17 16:12 Lanoxin IVP 0.25 mg 1400 MIRNA Administration Enoxaparin Sodium 80 mg 05/17/17 23:00 05/19/17 10:19 Lovenox SC 80 mg Q12H MIRNA Administration Protocol Furosemide 40 mg 05/18/17 10:00 05/19/17 09:43 Lasix IVP 40 mg DAILY MIRNA Administration Doxycycline Hyclate 100 mg/ 100 mls @ 100 mls/hr 05/17/17 22:00 05/19/17 09: 46 Sodium Chloride IVPB 100 mls/hr Q12 MIRNA Administration Protocol diltiaZEM IVPB 100mg in NS 100 mls @ 5 mls/hr 05/17/17 20:27 05/19/17 13:00 Cardizem 100mg In Ns IV Infused .Q20H PRN Titration TITRATE PER MD ORDER Protocol 5 MG/HR Insulin Detemir 40 unit 05/19/17 22:00 Levemir SC HS [facility] Insulin Human Lispro 0 units 05/18/17 16:30 05/19/17 16:21 Humalog Low SC Not Given ACHS [facility] Protocol Insulin Human Lispro 12 units 05/19/17 16:30 05/19/17 16:22 Humalog SC 12 units AC MIRNA Administration Methimazole 10 mg 05/18/17 10:45 05/19/17 16:12 Tapazole PO Not Given BID MIRNA Methylprednisolone 30 mg 05/19/17 10:00 05/19/17 09:46 Solu-Medrol IVP 30 mg Q12 MIRNA Administration Metoprolol Tartrate 5 mg 05/17/17 20:27 05/18/17 08:23 Lopressor IVP 5 mg Q4H PRN Administration Heart rate Ondansetron HCl 4 mg 05/17/17 18:13 Zofran Inj IVP Q6H PRN Nausea/Vomiting Pantoprazole Sodium 40 mg 05/18/17 06:30 05/19/17 05:51 Protonix Ec Tab PO 40 mg 0630 [facility] Administration Sotalol HCl 80 mg 05/19/17 10:00 05/19/17 09:51 Betapace PO 80 mg BID MIRNA Administration - Patient Studies Lab Studies: Microbiology Studies 05/18/17 04:00 MRSA Culture (Admit) - Final Naris MRSA NOT DETECTED Lab Studies 05/19/17 05/19/17 05/19/17 Range/Units 11:24 08:12 06:35 WBC (4.5-11.0) 10^3/ul RBC (3.5-6.1) 10^6/uL Hgb (12.0-16.0) g/dL Hct (36.0-48.0) % MCV (80.0-105.0) fl MCH (25.0-35.0) pg MCHC (31.0-37.0) g/dl RDW (11.5-14.5) % Plt Count (120.0-450.0) 10^3/uL MPV (7.0-11.0) fl Gran % (50.0-68.0) % Lymph % (Auto) (22.0-35.0) % [place] % (Auto) (1.0-6.0) % Eos % (Auto) (1.5-5.0) % Baso % (Auto) (0.0-3.0) % Gran # (1.4-6.5) Lymph # (1.2-3.4) [place] # (0.1-0.6) Eos # (0.0-0.7) Baso # (0.0-2.0) K/mm3 Sodium 139 (132-148) mmol/L Potassium 4.3 (3.6-5.0) mmol/L Chloride 101 (98-107) mmol/L Carbon Dioxide 25 (21-33) mmol/L Anion Gap 18 (10-20) BUN 31 H (7-21) mg/dL Creatinine 0.8 (0.7-1.2) mg/dl Est GFR ( Amer) > 60 Est GFR (Non-Af Amer) > 60 POC Glucose (mg/dL) 266 H 282 H (65-110) mg/dL Random Glucose 313 H* (70-110) mg/dL Calcium 9.8 (8.4-10.5) mg/dL Phosphorus 4.0 (2.5-4.5) mg/dL Magnesium 2.0 (1.7-2.2) mg/dL Total Bilirubin 0.8 (0.2-1.3) mg/dL AST 24 (14-36) U/L ALT 27 (7-56) U/L Alkaline Phosphatase 61 (38-126) U/L Total Protein 7.3 (5.8-8.3) g/dL Albumin 3.9 (3.0-4.8) g/dL Globulin 3.4 gm/dL Albumin/Globulin Ratio 1.2 (1.1-1.8) 05/19/17 05/18/17 05/18/17 Range/Units 06:35 21:57 16:15 WBC 11.7 H (4.5-11.0) 10^3/ul RBC 4.67 (3.5-6.1) 10^6/uL Hgb 15.2 (12.0-16.0) g/dL Hct 45.2 (36.0-48.0) % MCV 96.8 (80.0-105.0) fl MCH 32.5 (25.0-35.0) pg MCHC 33.6 (31.0-37.0) g/dl RDW 13.3 (11.5-14.5) % Plt Count 346 (120.0-450.0) 10^3/uL MPV 11.5 H (7.0-11.0) fl Gran % 81.7 H (50.0-68.0) % Lymph % (Auto) 11.2 L (22.0-35.0) % [place] % (Auto) 7.1 H (1.0-6.0) % Eos % (Auto) 0.0 L (1.5-5.0) % Baso % (Auto) 0.0 (0.0-3.0) % Gran # 9.56 H (1.4-6.5) Lymph # 1.3 (1.2-3.4) [place] # 0.8 H (0.1-0.6) Eos # 0.0 (0.0-0.7) Baso # 0.00 (0.0-2.0) K/mm3 Sodium (132-148) mmol/L Potassium (3.6-5.0) mmol/L Chloride (98-107) mmol/L Carbon Dioxide (21-33) mmol/L Anion Gap (10-20) BUN (7-21) mg/dL Creatinine (0.7-1.2) mg/dl Est GFR ( Amer) Est GFR (Non-Af Amer) POC Glucose (mg/dL) 288 H 326 H (65-110) mg/dL Random Glucose (70-110) mg/dL Calcium (8.4-10.5) mg/dL Phosphorus (2.5-4.5) mg/dL Magnesium (1.7-2.2) mg/dL Total Bilirubin (0.2-1.3) mg/dL AST (14-36) U/L ALT (7-56) U/L Alkaline Phosphatase (38-126) U/L Total Protein (5.8-8.3) g/dL Albumin (3.0-4.8) g/dL Globulin gm/dL Albumin/Globulin Ratio (1.1-1.8) 05/18/17 05/18/17 Range/Units 11:25 07:21 WBC (4.5-11.0) 10^3/ul RBC (3.5-6.1) 10^6/uL Hgb (12.0-16.0) g/dL Hct (36.0-48.0) % MCV (80.0-105.0) fl MCH (25.0-35.0) pg MCHC (31.0-37.0) g/dl RDW (11.5-14.5) % Plt Count (120.0-450.0) 10^3/uL MPV (7.0-11.0) fl Gran % (50.0-68.0) % Lymph % (Auto) (22.0-35.0) % [place] % (Auto) (1.0-6.0) % Eos % (Auto) (1.5-5.0) % Baso % (Auto) (0.0-3.0) % Gran # (1.4-6.5) Lymph # (1.2-3.4) [place] # (0.1-0.6) Eos # (0.0-0.7) Baso # (0.0-2.0) K/mm3 Sodium (132-148) mmol/L Potassium (3.6-5.0) mmol/L Chloride (98-107) mmol/L Carbon Dioxide (21-33) mmol/L Anion Gap (10-20) BUN (7-21) mg/dL Creatinine (0.7-1.2) mg/dl Est GFR ( Amer) Est GFR (Non-Af Amer) POC Glucose (mg/dL) 230 H 333 H (65-110) mg/dL Random Glucose (70-110) mg/dL Calcium (8.4-10.5) mg/dL Phosphorus (2.5-4.5) mg/dL Magnesium (1.7-2.2) mg/dL Total Bilirubin (0.2-1.3) mg/dL AST (14-36) U/L ALT (7-56) U/L Alkaline Phosphatase (38-126) U/L Total Protein (5.8-8.3) g/dL Albumin (3.0-4.8) g/dL Globulin gm/dL Albumin/Globulin Ratio (1.1-1.8) Laboratory Results - last 24 hr 05/18/17 05/18/17 05/18/17 07:21 11:25 16:15 WBC RBC Hgb Hct MCV MCH MCHC RDW Plt Count MPV Gran % Lymph % (Auto) [place] % (Auto) Eos % (Auto) Baso % (Auto) Gran # Lymph # [place] # Eos # Baso # Sodium Potassium Chloride Carbon Dioxide Anion Gap BUN Creatinine Est GFR ( Amer) Est GFR (Non-Af Amer) POC Glucose (mg/dL) 333 H 230 H 326 H Random Glucose Calcium Phosphorus Magnesium Total Bilirubin AST ALT Alkaline Phosphatase Total Protein Albumin Globulin Albumin/Globulin Ratio 05/18/17 05/19/17 05/19/17 21:57 06:35 06:35 WBC 11.7 H RBC 4.67 Hgb 15.2 Hct 45.2 MCV 96.8 MCH 32.5 MCHC 33.6 RDW 13.3 Plt Count 346 MPV 11.5 H Gran % 81.7 H Lymph % (Auto) 11.2 L [place] % (Auto) 7.1 H Eos % (Auto) 0.0 L Baso % (Auto) 0.0 Gran # 9.56 H Lymph # 1.3 [place] # 0.8 H Eos # 0.0 Baso # 0.00 Sodium 139 Potassium 4.3 Chloride 101 Carbon Dioxide 25 Anion Gap 18 BUN 31 H Creatinine 0.8 Est GFR ( Amer) > 60 Est GFR (Non-Af Amer) > 60 POC Glucose (mg/dL) 288 H Random Glucose 313 H* Calcium 9.8 Phosphorus 4.0 Magnesium 2.0 Total Bilirubin 0.8 AST 24 ALT 27 Alkaline Phosphatase 61 Total Protein 7.3 Albumin 3.9 Globulin 3.4 Albumin/Globulin Ratio 1.2 05/19/17 05/19/17 08:12 11:24 WBC RBC Hgb Hct MCV MCH MCHC RDW Plt Count MPV Gran % Lymph % (Auto) [place] % (Auto) Eos % (Auto) Baso % (Auto) Gran # Lymph # [place] # Eos # Baso # Sodium Potassium Chloride Carbon Dioxide Anion Gap BUN Creatinine Est GFR ( Amer) Est GFR (Non-Af Amer) POC Glucose (mg/dL) 282 H 266 H Random Glucose Calcium Phosphorus Magnesium Total Bilirubin AST ALT Alkaline Phosphatase Total Protein Albumin Globulin Albumin/Globulin Ratio Critical Care Progress Note - Nutrition Nutrition: Nutrition Category Date Time Status Heart Healthy Diet [DIET] Diets 05/19/17 Dinner Ordered Attending/Attestation - Attestation I have personally seen and examined this patient.: Yes I have fully participated in the care of the patient.: Yes I have reviewed all pertinent clinical information: Yes Notes (Text): 05/19/17 17:26 77 yo female with ?hyperthyroidism and refractory afib with rvr, now on steroids and methimazole. cardizem drip is off, sotalol bid started. alert and oriented x 3, comfortable sitting on the chair, talks full sentences. HR 80- 115. BP stable. ccm time 40 min
[2017-05-19] MEDS: Digoxin 500 mcg/2ml (0.5 mg/2ml) Inj IVP SCH (16:12)
[2017-05-19] MEDS: Budesonide 0.5 mg/2 ml Inhal Susp UD IH SCH (20:01)
[2017-05-19] MEDS: Insulin Detemir 100 units/ml Vial (Levemir) SC SCH (22:09)
--- NOTE | 2017-05-19 22:53 | PN ---
DATE: 05/19/2017 SUBJECTIVE: The patient has no complaints of any chest pain. No shortness of breath. She states she is feeling better today. PHYSICAL EXAMINATION: VITAL SIGNS: Her temperature is 98, pulse of 130, blood pressure is 161/97, respirations are 23, and O2 saturation 93%. GENERAL: The patient is lying in bed, flat, comfortable. HEENT: No oral lesion. Anicteric sclerae. Moist mucosa. NECK: No JVD, adenopathy, or thyromegaly. CARDIOVASCULAR: S1 and S2, regular. No murmurs, rubs, or gallops. LUNGS: Clear to auscultation bilaterally. No wheeze, rales, or rhonchi. ABDOMEN: Bowel sounds are positive, soft, nontender and nondistended. EXTREMITIES: No cyanosis, clubbing or edema. LABORATORY DATA: . The patient's creatinine is 0.7 and white count of 11.7. ASSESSMENT: 1. Atrial fibrillation. 2. Chronic obstructive pulmonary disease. 3. Hypertension. 4. Dyslipidemia. 5. Diabetes type 2. 6. Do not resuscitate/do not intubate. 7. Obesity with a body mass index of 33. PLAN: The patient is currently comfortable. She remains on Cardizem. Her heart rate is better, but still not well controlled. She is going to be on her aspirin. She is going to be on sotalol, that is started. The patient on insulin. She is going to continue with digoxin. She is on Lipitor for dyslipidemia. The patient is going to continue with Lovenox for anticoagulation. She is on steroids. I appreciate the input from the consultants. Tod Woodruff MD
--- NOTE | 2017-05-20 03:55 | PN ---
DATE: 06/30/2016 SUBJECTIVE: This is a 77-year-old female with recent acute exacerbation of COPD, currently on IV steroid therapy and also was evaluated for possible recent onset of overt hyperthyroidism and placed on methimazole at 10 mg b.i.d. as ordered. Hyperglycemic levels persists, but has improved accordingly and the latest glucose values today have ranged from 266 to 282 and 288 mg/dL. LABORATORY DATA: The latest chemistry showed the BUN of 31, sodium 139, potassium 4.3, chloride 101, CO2 25, glucose 313, and creatinine 0.8. ASSESSMENT AND PLAN: So, at this time, we will modify once again her basal and bolus insulin regimen and she is currently on tapering IV steroid dose regimen as given with Solu-Medrol given as 30 mg IV piggyback every 12 hours as ordered. We will increase the Humalog to 12 units subcu t.i.d. before meals and Levemir as long acting insulin to be given at the higher dose 40 units subcu at bedtime daily as ordered. We will continue the low-dose correction scale using Humalog insulin as given. We will obtain serial chemistries and supplement accordingly as needed. We also repeat the total T4 to adjust this dose regimen accordingly. The suppressed TSH level will take much longer and close to 6 months or so to normalize until the patient is actually close to euthyroid. For dose adjustments we usually follow the total T4 to determine the degree of hyperthyroidism. We will obtain serial chemistries and supplement accordingly as needed. We will also obtain the thyroid peroxidase antibody and thyroid stimulating immunoglobulin to confirm and/or indicate the presence of underlying thyroid autoimmunity. We will follow with you. Hamida Daniel MD
[2017-05-20] MEDS: Pantoprazole 40 mg EC Tab PO SCH (05:36)
[2017-05-20 05:45] LABS: GRAN # 8.42 (1.4-6.5); GRAN % 80.1 % (50.0-68.0); HEMATOCRIT 46.6 % (36.0-48.0); LYMPH # 1.1 (1.2-3.4); LYMPH % 10.7 % (22.0-35.0); MEAN CELL VOLUME 95.9 fl (80.0-105.0); MEAN CORPUSCULAR HEMOGLOBIN 32.5 pg (25.0-35.0); MEAN CORPUSCULAR HGB CONC 33.9 g/dl (31.0-37.0); MEAN PLATELET VOLUME 11.5 fl (7.0-11.0); MONO % 9.2 % (1.0-6.0); RED CELL DISTRIBUTION WIDTH 13.1 % (11.5-14.5); WHITE BLOOD COUNT 10.5 10^3/ul (4.5-11.0)
[2017-05-20 06:06] LABS: ALB/GLOB RATIO 1.1 (1.1-1.8); ALKALINE PHOSPHATASE 58 U/L (38-126); ALT/SGPT 41 U/L (7-56); AST/SGOT 32 U/L (14-36); BILIRUBIN,TOTAL 0.8 mg/dL (0.2-1.3); BLOOD UREA NITROGEN 35 mg/dL (7-21); CALCIUM 9.3 mg/dL (8.4-10.5); CARBON DIOXIDE 29 mmol/L (21-33); CHLORIDE 101 mmol/L (98-107); GFR AFRICAN-AMERICAN > 60; GLUCOSE,RANDOM 287 mg/dL (70-110); POTASSIUM 4.3 mmol/L (3.6-5.0); SODIUM 137 mmol/L (132-148); TOTAL PROTEIN 6.9 g/dL (5.8-8.3)
[2017-05-20 06:38] LABS: FREE T4 0.91 ng/dL (0.78-2.19); T4 5.6 ug/dL (5.5-11.0)
[2017-05-20 06:51] LABS: THYROID STIMULATING HORMONE 0.08 mIU/mL (0.46-4.68)
--- NOTE | 2017-05-20 07:02 | HP ---
This is a late entry for 05/18/2017. I had technical problems with my log in and could not enter the H and P. CHIEF COMPLAINT AND HISTORY OF PRESENT ILLNESS: This is a 77-year-old female who has come into the hospital complaining of shortness of breath. She has a past medical history of diabetes type 2, hypertension, COPD, hypothyroidism, atrial fibrillation. She had been on steroids and had been improving. She says she woke up on the day of admission to the ER because of shortness of breath. The patient was brought in by EMS and was found to have tachycardia. She had blood sugar that was 55. She denied any headache or dizziness. No nausea. No vomiting. No fevers, headaches or chills. She did have atrial fibrillation that was difficult to control. The patient had received multiple doses of Cardizem and also digoxin. The patient was admitted to the ICU on a Cardizem drip. The patient's tachycardia was narrow complex, it was 180 to 220, and it had improved with Cardizem to 130s to 140s. ALLERGIES: PENICILLIN, SHRIMP, . MEDICATIONS: Have been reviewed on the [facility]. PAST SURGICAL HISTORY: Stress test in 2014. FAMILY HISTORY: Noncontributory. SOCIAL HISTORY: She does not smoke, drink or use drugs. PAST MEDICAL HISTORY: As above. PHYSICAL EXAMINATION: VITAL SIGNS: Temperature is 98.1, pulse is 99, blood pressure is 120/76, respirations 20 and O2 saturation is 81%, repeat was 94%. Height is 5 feet 3 inches, weight is 189 pounds. BMI is 33. GENERAL: The patient lying in bed, uncomfortable, and in no acute distress. HEENT: Atraumatic and normocephalic. Anicteric sclerae. Moist mucosa. Dorrance conjunctivae. No oral lesions. NECK: No JVD, anterior and posterior adenopathy, thyromegaly, or bruits. CARDIOVASCULAR: Regularly with irregular. LUNGS: Clear to auscultation bilaterally. No wheezes, rales, or rhonchi. ABDOMEN: Bowel sounds are positive. Soft, nontender and nondistended. No hepatosplenomegaly. No rebound and no guarding. EXTREMITIES: No cyanosis, clubbing, or edema. NEUROLOGIC: No facial asymmetry. Tongue is midline. No uvula deviation. Power is 5/5 upper extremity and lower extremity. Sensation intact in upper extremity and lower extremity. PSYCHIATRIC: She is awake, alert and oriented x3. No anxiety or depression. She has normal affect. GENITOURINARY: No CVA tenderness. VASCULAR: 2+ pulses in the carotid pulses and pedal pulses. SKIN: No erythema or nodules SPINE: Shows normal curvature. LABORATORY DATA: Labs, white count is 16.5, hemoglobin is 14.8, platelet count is 323. Chemistry shows sodium is 141, creatinine is 0.7, albumin is 4.4. EKG shows atrial fibrillation with a heart rate of 153. Chest x-ray done shows an interval left side pleural effusion. There is mild cardiomegaly. Patient had a prominent right hilum and that is stable compared with the CT done in 2010. ASSESSMENT: 1. Atrial fibrillation. 2. Hypertension. 3. Chronic obstructive pulmonary disease. 4. Dyslipidemia. 5. Diabetes type 2. 6. Obese with a body mass index of 33. PLAN: The patient is currently comfortable. She is on sotalol. She is on Cardizem drip. She is on antibiotics with doxycycline. She is going to continue with aspirin daily. She is on Lasix daily. She is on Lovenox for anticoagulation. The patient has been placed on steroids. She is going to be seen by Dr. Daniel for her hyperthyroidism. She has a history of hypothyroidism. The patient is going to be seen by Dr. Lopez and Dr. Vaz for the shortness of breath. She will have blood cultures and urine cultures ordered. We will repeat the patient's blood work tomorrow and put her on a heart-healthy diet. Tod Woodruff MD
[2017-05-20] MEDS: Insulin Lispro 1 UNITS/0.01 ML SC SCH ×3 (08:08→17:03)
[2017-05-20] MEDS: Budesonide 0.5 mg/2 ml Inhal Susp UD IH SCH ×3 (08:09→21:50)
[2017-05-20] MEDS: Insulin Lispro (humaLOG) LOW Coverage SC SCH ×5 (08:09→22:00)
[2017-05-20] MEDS: MethylPREDNISolone 40 mg Vial IVP SCH ×2 (09:34→22:27)
[2017-05-20] MEDS: diltiaZEM IVPB 100mg in NS 100 ML IV PRN (09:40)
--- NOTE | 2017-05-20 10:33 | CP.PCM.PN ---
Subjective - Date & Time of Evaluation Date of Evaluation: 05/20/17 Time of Evaluation: 07:30 - Subjective Subjective: Patient seen and examined, reports to be feeling significantly better. Denies sob, cp, Palpitations, WEIR, dizziness. Currently sitting in a chair. HR remains elevated, Afib 100-130s. Morning EKG pending. Objective - Vital Signs/Intake and Output Vital Signs (last 24 hours): Temp Pulse Resp BP Pulse Ox 97.8 F 134 H 24 149/56 L 100 05/20/17 08:00 05/20/17 09:40 05/20/17 08:00 05/20/17 09:40 05/20/17 08:00 Intake and Output: 05/20/17 05/20/17 06:59 18:59 Intake Total 500 Output Total 800 Balance -300 - Medications Medications: Current Medications Acetaminophen (Tylenol 325mg Tab) 650 mg PO Q6H PRN PRN Reason: Fever >100.4 F Aspirin (Ecotrin) 81 mg PO DAILY [facility] Last Admin: 05/20/17 09:34 Dose: 81 mg Atorvastatin Calcium (Lipitor) 40 mg PO DAILY [facility] Last Admin: 05/20/17 09:34 Dose: 40 mg Benzonatate (Tessalon Perles) 100 mg PO BID PRN PRN Reason: Cough Budesonide (Pulmicort Respules) 0.5 mg IH [id number] [facility] Last Admin: 05/20/17 08:09 Dose: 0.5 mg Digoxin (Lanoxin) 0.25 mg IVP 1400 [facility] Last Admin: 05/19/17 16:12 Dose: 0.25 mg Enoxaparin Sodium (Lovenox) 80 mg SC Q12H [facility] PRN Reason: Protocol Last Admin: 05/19/17 22:10 Dose: 80 mg Furosemide (Lasix) 40 mg IVP DAILY [facility] Last Admin: 05/20/17 09:33 Dose: 40 mg Doxycycline Hyclate 100 mg/ (Sodium Chloride) 100 mls @ 100 mls/hr IVPB Q12 [facility] PRN Reason: Protocol Last Admin: 05/20/17 09:33 Dose: 100 mls/hr diltiaZEM IVPB 100mg in NS (Cardizem 100mg In Ns) 100 mls @ 5 mls/hr IV .Q20H PRN; Protocol; 5 MG/HR PRN Reason: TITRATE PER MD ORDER Last Admin: 05/20/17 09:40 Dose: 10 mg/hr, 10 mls/hr Insulin Detemir (Levemir) 40 unit SC HS [facility] Last Admin: 05/19/17 22:09 Dose: 40 unit Insulin Human Lispro (Humalog Low) 0 units SC ACHS [facility] PRN Reason: Protocol Last Admin: 05/20/17 08:09 Dose: Not Given Insulin Human Lispro (Humalog) 12 units SC AC [facility] Last Admin: 05/20/17 08:08 Dose: 12 units Methimazole (Tapazole) 10 mg PO BID [facility] Last Admin: 05/19/17 17:21 Dose: 10 mg Methylprednisolone (Solu-Medrol) 30 mg IVP Q12 [facility] Last Admin: 05/20/17 09:34 Dose: 30 mg Metoprolol Tartrate (Lopressor) 5 mg IVP Q4H PRN PRN Reason: Heart rate Last Admin: 05/18/17 08:23 Dose: 5 mg Ondansetron HCl (Zofran Inj) 4 mg IVP Q6H PRN PRN Reason: Nausea/Vomiting Pantoprazole Sodium (Protonix Ec Tab) 40 mg PO 0630 [facility] Last Admin: 05/20/17 05:36 Dose: 40 mg Sotalol HCl (Betapace) 80 mg PO BID [facility] Last Admin: 05/20/17 09:34 Dose: 80 mg - Labs Labs: 05/20/17 05:00 05/20/17 05:00 PT 11.9 SECONDS (9.4-12.5) 05/17/17 12:50 INR 1.08 (0.93-1.08) 05/17/17 12:50 APTT 28.6 Seconds (25.1-36.5) 05/17/17 12:50 - Constitutional Appears: Well, Non-toxic, No Acute Distress - Head Exam Head Exam: ATRAUMATIC, NORMAL INSPECTION - ENT Exam ENT Exam: Mucous Membranes Moist - Neck Exam Neck Exam: Full ROM - Respiratory Exam Respiratory Exam: Clear to Ausculation Bilateral, NORMAL BREATHING PATTERN - Cardiovascular Exam Cardiovascular Exam: Tachycardia, Irregular Rhythm, +S1, +S2 - GI/Abdominal Exam GI & Abdominal Exam: Soft, Normal Bowel Sounds - Extremities Exam Extremities Exam: Normal Inspection Assessment and Plan - Assessment and Plan (Free Text) Assessment: 77yo F with PMHx of COPD, HTN, HLD, DM, and Atrial Fibrillation here with AFib w /RVR COPD exacerbation Hyperthyroidism Afib DM - currently afebrile, HD stable, HR 100-130s, restarted back on Cardizem drip for now - On Sotalol PO, awaiting morning EKG (QTc) - Lungs CTABL, Denies SOB Recommend: - cont with supp o2 as needed - IV Steroids Solumedrol 30mg BID - Xopenex PRN - Cont with Sotalol as per cardiology - restart back Cardizem drip - follow up morning EKG - follow up Cardiology - Mehtimazole - follow up endocrinology - FS control - BP control - GI ppx - DVT ppx Critical care time 40 min
[2017-05-20] MEDS: Enoxaparin 80 mg Syringe SC SCH ×2 (10:54→23:08)
--- NOTE | 2017-05-20 11:12 | RAD ---
HISTORY: follow up COMPARISON: Chest x-ray performed 05/19/17 TECHNIQUE: Chest, one view. FINDINGS: Examination limited by habitus. LUNGS: Right hilar prominence. Mild left basilar atelectasis. Biapical pleural thickening. PLEURA: No significant pleural effusion identified. No definite pneumothorax . CARDIOVASCULAR: Heart size appears within normal limits. Atherosclerotic calcifications. OSSEOUS STRUCTURES: Chronic rib fracture deformity, posterior lateral right rib. Osseous demineralization. Degenerative changes. VISUALIZED UPPER ABDOMEN: Unremarkable. OTHER FINDINGS: None. IMPRESSION: Right hilar prominence. Mild left basilar atelectasis. Biapical pleural thickening.
[2017-05-20 12:24] LABS: FT3 1.67 pg/mL (2.77-5.27)
[2017-05-20] MEDS: Digoxin 500 mcg/2ml (0.5 mg/2ml) Inj IVP SCH (13:13)
--- NOTE | 2017-05-20 13:48 | PN ---
DATE: 05/20/2017 SUBJECTIVE: She states she feels well. She has no complaints of any chest pain. No shortness of breath. PHYSICAL EXAMINATION: VITAL SIGNS: Temperature is 97.8, pulse of 114, blood pressure is 141/83, respirations 20. GENERAL: The patient is lying in bed, flat, comfortable. HEENT: No oral lesion. Anicteric sclerae. Moist mucosa. NECK: No JVD, adenopathy, or thyromegaly. CARDIOVASCULAR: S1 and S2, regular. No murmurs, rubs, or gallops. LUNGS: Clear to auscultation bilaterally. No wheeze, rales, or rhonchi. ABDOMEN: Bowel sounds are positive, soft, nontender, and nondistended. EXTREMITIES: No cyanosis, clubbing or edema. LABORATORY DATA: Creatinine is 0.8. ASSESSMENT: 1. Atrial fibrillation. 2. Chronic obstructive pulmonary disease. 3. Hypertension. 4. Diabetes type 2. 5. Obesity with body mass index of 33. 6. DNR/DNI. PLAN: The patient is currently comfortable. She is being followed by Dr. Gordon. The patient is on Levemir. She is going to continue with Solu-Medrol. The patient is currently on doxycycline for antibiotics. She is on Cardizem. She is going to continue with Lanoxin. The patient is on Lipitor for dyslipidemia. She is on Lovenox for anticoagulation. The patient is on methimazole. She is on a heart-healthy diet. Tod Woodruff MD
--- NOTE | 2017-05-20 14:05 | PN ---
DATE: 05/20/2017 PULMONARY PROGRESS NOTE SUBJECTIVE: The patient is still in the Intensive Care Unit being monitored for cardiovascular problems that has developed. PLEASE NOTE, I have known this patient for more than 25 years. The patient has significant asthma. She has very spastic airways that are being controlled now on high-dose corticosteroids. She cannot go home on such dose of steroids as this is dangerous as well. She will need some beta-agonist bronchodilator despite her cardiac arrhythmia. Perhaps a continued dose of levalbuterol would not cause as much problems with her arrhythmia than other medications. It is best described as well the patient is still in the Intensive Care Unit on cardiac monitoring. I will discuss this problem at length with the color maker on-call. PHYSICAL EXAMINATION: GENERAL: The patient is feeling better. She is afebrile. VITAL SIGNS: Heart rate 110, respiratory rate 22, blood pressure 122/70, and O2 sat 94% on supplemental oxygen. NECK: Supple. No JVD. No lymphadenopathy. No bruit. CARDIOVASCULAR: Regular rhythm, S1 and S2, with soft systolic ejection murmur at the lower left sternal border. LUNGS: Global decrease in breath sounds, scattered rhonchi, wheezing persists! ABDOMEN: Soft. Bowel sounds normoactive without mass, guarding, rebound or organomegaly. EXTREMITIES: No clubbing, cyanosis or edema. There is no Jarret's sign. SKIN: No rash, excoriation or lymphadenopathy. No lymph nodes are palpated in the supraclavicular notch or in the cervical inguinal axillary areas. NEUROLOGIC: Within normal limits. Mental status is perfect. LABORATORY DATA: Laboratory studies have been reviewed. The chest x-ray done this morning is unchanged. There is some scarring, atelectasis, minimal cuffing, and bilateral pleural effusions. IMPRESSION: 1. Acute bronchospasm. 2. Severe baseline asthma. 3. Anxiety. 4. New onset rapid atrial fibrillation. 5. Congestive heart failure. 6. Coronary artery disease. 7. Chronic obstructive pulmonary disease treated with four medications in the past. PLAN: Although we cannot treat her chronic obstructive pulmonary disease with as many bronchodilators as she originally required, we had started low-dose inhaled nebulized levalbuterol, this has been discussed with the color maker. If this is insufficient when the corticosteroids are tapered and discontinued, she will require additional pulmonary medications despite her cardiac arrhythmia. As such, I strongly suggest that the arrhythmia be treated and evaluated as if the patient is taking additional beta-agonist and anticholinergics. It is best to follow her in the Intensive Care Unit or during cardiac monitoring to make sure that the baseline medication that she will be needing for her pulmonary status at home is being given when her cardiac disease can be monitored. Once she goes home and has respiratory problems and we start medications, we do not know what will happen with her cardiac arrhythmia. This is essential to evaluate at this time and to evaluate later. Please feel comfortable calling me and discussing her case with me. It is essential that she get all of the medications that she requires while being monitored. If not, we will have no idea of what will happen when she needs her medications once again at home. Jeff Cordoba MD
--- NOTE | 2017-05-20 14:15 | PN ---
DATE: 05/20/2017 CARDIOLOGY FOLLOWUP SUBJECTIVE: The patient was off the Cardizem and we put back on this morning when her heart rate went up without the IV Cardizem. PHYSICAL EXAMINATION: VITAL SIGNS: Blood pressure is 149/56, heart rate is in the 130s. NECK: Negative JVD. LUNGS: Without rales. HEART: With S1, S2. EXTREMITIES: Without edema. LABORATORY DATA: Hemoglobin is 15.8. Chemistries, glucose is 287. IMPRESSION: 1. Atrial fibrillation with rapid ventricular response. 2. Diabetes mellitus. 3. Congestive heart failure. 4. Obesity. PLAN: Given these findings, we will start the patient on p.o. Cardizem. Once the p.o. Cardizem and Sotalol control the heart rate, we will discontinue the IV Cardizem drip. Aubrey Lopez MD
[2017-05-20] MEDS: Levalbuterol 0.63 MG/3 ML Inhal Soln UD IH PRN ×2 (14:18→20:51)
--- NOTE | 2017-05-20 18:31 | PN ---
ENDOCRINE FOLLOWUP NOTE DATE: LOCATION: ICU 129, room 1. This is a 77-year-old female with recent acute exacerbation of COPD and asthmatic bronchitis and currently on IV steroid therapy at 30 mg every 12 hours, has tapered down. She is improving clinically and hemodynamically as noted by us. She was also evaluated for a recent onset of early hyperthyroidism and has been started right away on methimazole given as 10 mg b.i.d. as ordered. Her latest chemistry showed a BUN of 35, sodium 137, potassium 4.3, chloride 101, CO2 29, glucose 287, and creatinine 0.8. Hyperglycemic levels subsequently and as expected with the transient intercurrent IV steroids as given and the glucose values have ranged from 198 to 256 and 327 mg/dL. So, at this time, we will continue the basal and bolus insulin regimen as given to allow for dose equilibration and keep her on the Levemir 40 units at bedtime daily as ordered. We will also continue the Humalog given as 12 units subcutaneous t.i.d. before meals as ordered. The repeat thyroid study showed the T4 of 5.6 mcg with a free T4 of 0.91 and the low albumin of 3.7, which would explain the low normal thyroxine levels as noted. The TSH remains suppressed at 0.08 which will remain suppressed up to 6 months and will normalize only once the patient goes to euthyroid as expected. So we will continue the same dose of Tapazole given as 10 mg b.i.d. after meals as ordered. and adjusted her dose regimen accordingly. It is also fairly common at this age, given the so called euthyroid Graves' disease and thyroid antibodies have been sent out underlying thyroid autoimmune disease. The thyroid stimulating immunoglobulin and thyroid peroxidase antibodies are pending, sent out for a reference plan.. Hamida Daniel MD
--- NOTE | 2017-05-20 21:46 | CARD ---
APPROVED REPORT EKG Measurement Heart [id number] <Conclusion> Atrial fibrillation with rapid ventricular response ST & T wave abnormality, consider inferior ischemia or digitalis effect ST & T wave abnormality, consider anterolateral ischemia or digitalis effect Abnormal ECG
[2017-05-20] MEDS: Insulin Detemir 100 units/ml Vial (Levemir) SC SCH (22:28)
[2017-05-21 05:51] LABS: HEMATOCRIT 46.2 % (36.0-48.0); LYMPH # 1.1 (1.2-3.4); LYMPH % 9.7 % (22.0-35.0); MEAN CELL VOLUME 94.9 fl (80.0-105.0); MEAN CORPUSCULAR HEMOGLOBIN 33.1 pg (25.0-35.0); MEAN CORPUSCULAR HGB CONC 34.8 g/dl (31.0-37.0); MEAN PLATELET VOLUME 11.5 fl (7.0-11.0); MONO # 1.3 (0.1-0.6); MONO % 11.3 % (1.0-6.0); RED CELL DISTRIBUTION WIDTH 12.9 % (11.5-14.5); WHITE BLOOD COUNT 11.4 10^3/ul (4.5-11.0)
[2017-05-21] MEDS: Pantoprazole 40 mg EC Tab PO SCH (06:00)
[2017-05-21 06:18] LABS: ALB/GLOB RATIO 1.1 (1.1-1.8); ALKALINE PHOSPHATASE 80 U/L (38-126); ALT/SGPT 50 U/L (7-56); AST/SGOT 37 U/L (14-36); BILIRUBIN,TOTAL 0.7 mg/dL (0.2-1.3); BLOOD UREA NITROGEN 35 mg/dL (7-21); CALCIUM 9.1 mg/dL (8.4-10.5); CARBON DIOXIDE 28 mmol/L (21-33); CHLORIDE 101 mmol/L (98-107); GFR AFRICAN-AMERICAN > 60; GLUCOSE,RANDOM 342 mg/dL (70-110); MAGNESIUM 2.2 mg/dL (1.7-2.2); POTASSIUM 4.2 mmol/L (3.6-5.0); SODIUM 136 mmol/L (132-148); TOTAL PROTEIN 6.3 g/dL (5.8-8.3)
[2017-05-21] MEDS: Insulin Lispro (humaLOG) LOW Coverage SC SCH ×4 (07:40→21:57)
[2017-05-21] MEDS: Insulin Lispro 1 UNITS/0.01 ML SC SCH ×3 (07:48→16:47)
--- NOTE | 2017-05-21 07:58 | CP.PCM.PN ---
Subjective - Date & Time of Evaluation Date of Evaluation: 05/21/17 Time of Evaluation: 07:56 - Subjective Subjective: Pt seen and examined, reports to be feeling slightly weak today. Denies SOB, CP , palpitations, WEIR, Dizziness. No other constitutional symptoms. Objective - Vital Signs/Intake and Output Vital Signs (last 24 hours): Temp Pulse Resp BP Pulse Ox 98.0 F 108 H 34 H 106/40 L 96 05/21/17 04:00 05/21/17 04:00 05/21/17 04:00 05/21/17 04:00 05/21/17 04:00 - Medications Medications: Current Medications Acetaminophen (Tylenol 325mg Tab) 650 mg PO Q6H PRN PRN Reason: Fever >100.4 F Aspirin (Ecotrin) 81 mg PO DAILY [facility] Last Admin: 05/20/17 09:34 Dose: 81 mg Atorvastatin Calcium (Lipitor) 40 mg PO DAILY [facility] Last Admin: 05/20/17 09:34 Dose: 40 mg Benzonatate (Tessalon Perles) 100 mg PO BID PRN PRN Reason: Cough Budesonide (Pulmicort Respules) 0.5 mg IH [id number] [facility] Last Admin: 05/20/17 21:50 Dose: 0.5 mg Digoxin (Lanoxin) 0.25 mg IVP 1400 [facility] Last Admin: 05/20/17 13:13 Dose: 0.25 mg Diltiazem HCl (Cardizem) 60 mg PO TID [facility] Last Admin: 05/20/17 17:03 Dose: 60 mg Enoxaparin Sodium (Lovenox) 80 mg SC Q12H [facility] PRN Reason: Protocol Last Admin: 05/20/17 23:08 Dose: 80 mg Furosemide (Lasix) 40 mg IVP DAILY [facility] Last Admin: 05/20/17 09:33 Dose: 40 mg Doxycycline Hyclate 100 mg/ (Sodium Chloride) 100 mls @ 100 mls/hr IVPB Q12 [facility] PRN Reason: Protocol Last Admin: 05/20/17 21:32 Dose: 100 mls/hr diltiaZEM IVPB 100mg in NS (Cardizem 100mg In Ns) 100 mls @ 5 mls/hr IV .Q20H PRN; Protocol; 5 MG/HR PRN Reason: TITRATE PER MD ORDER Last Titration: 05/20/17 15:45 Dose: 0 mg/hr, 0 mls/hr Insulin Detemir (Levemir) 40 unit SC HS [facility] Last Admin: 05/20/17 22:28 Dose: 40 unit Insulin Human Lispro (Humalog Low) 0 units SC ACHS [facility] PRN Reason: Protocol Last Admin: 05/21/17 07:40 Dose: Not Given Insulin Human Lispro (Humalog) 12 units SC AC [facility] Last Admin: 05/21/17 07:48 Dose: 12 units Levalbuterol HCl (Xopenex) 0.63 mg IH [id number] PRN PRN Reason: Shortness of Breath Last Admin: 05/20/17 20:51 Dose: 0.63 mg Methimazole (Tapazole) 10 mg PO BID [facility] Last Admin: 05/20/17 17:06 Dose: 10 mg Methylprednisolone (Solu-Medrol) 30 mg IVP Q12 [facility] Last Admin: 05/20/17 22:27 Dose: 30 mg Metoprolol Tartrate (Lopressor) 5 mg IVP Q4H PRN PRN Reason: Heart rate Last Admin: 05/18/17 08:23 Dose: 5 mg Ondansetron HCl (Zofran Inj) 4 mg IVP Q6H PRN PRN Reason: Nausea/Vomiting Pantoprazole Sodium (Protonix Ec Tab) 40 mg PO 0630 [facility] Last Admin: 05/21/17 06:00 Dose: 40 mg Sotalol HCl (Betapace) 80 mg PO BID [facility] Last Admin: 05/20/17 17:06 Dose: 80 mg - Labs Labs: 05/21/17 05:00 05/21/17 05:00 PT 11.9 SECONDS (9.4-12.5) 05/17/17 12:50 INR 1.08 (0.93-1.08) 05/17/17 12:50 APTT 28.6 Seconds (25.1-36.5) 05/17/17 12:50 - Constitutional Appears: Well, Non-toxic, No Acute Distress - Head Exam Head Exam: ATRAUMATIC - Eye Exam Eye Exam: Normal appearance - ENT Exam ENT Exam: Mucous Membranes Moist - Respiratory Exam Respiratory Exam: Clear to Ausculation Bilateral, NORMAL BREATHING PATTERN - Cardiovascular Exam Cardiovascular Exam: Irregular Rhythm, +S1, +S2 - GI/Abdominal Exam GI & Abdominal Exam: Soft, Normal Bowel Sounds - Extremities Exam Extremities Exam: Pedal Edema Assessment and Plan - Assessment and Plan (Free Text) Assessment: 77yo F with PMHx of COPD, HTN, HLD, DM, and Atrial Fibrillation here with AFib w /RVR COPD exacerbation Hyperthyroidism Afib w/RVR DM - currently afebrile, HD stable, HR 100-110s, off Cardizem drip - On Sotalol PO, yesterday EKG QTc wnl - Lungs CTABL, benign abd exam Recommend: - cont with supp o2 as needed - switch IV Steroids to PO prednisone - Xopenex PRN - Cont with Sotalol as per cardiology - follow up Cardiology - Mehtimazole - follow up endocrinology - FS control - BP control - GI ppx - DVT ppx - PT eval - OOB to chair - Stable, transfer to telemetry
[2017-05-21] MEDS: Levalbuterol 0.63 MG/3 ML Inhal Soln UD IH PRN ×3 (08:01→20:38)
[2017-05-21] MEDS: Budesonide 0.5 mg/2 ml Inhal Susp UD IH SCH ×2 (08:01→20:38)
--- NOTE | 2017-05-21 11:42 | PN ---
DATE: 05/21/2017 SUBJECTIVE: The patient has no complaints of any chest pain, shortness of breath, or headaches. PHYSICAL EXAMINATION: VITAL SIGNS: Temperature 97.8, pulse of 110-120, blood pressure 140/105, and respirations 20. GENERAL: The patient is lying in bed, flat, comfortable. HEENT: No oral lesion. Anicteric sclerae. Moist mucosa. NECK: No JVD, adenopathy, or thyromegaly. CARDIOVASCULAR: S1 and S2, regular. No murmurs, rubs, or gallops. LUNGS: Clear to auscultation bilaterally. No wheeze, rales, or rhonchi. ABDOMEN: Bowel sounds are positive, soft, nontender and nondistended. EXTREMITIES: No cyanosis, clubbing or edema. LABORATORY DATA: White count of 11.4 and hemoglobin 16.1. Creatinine is 0.8. ASSESSMENT: 1. Atrial fibrillation, uncontrolled. 2. Chronic obstructive pulmonary disease. 3. Hypertension. 4. Diabetes type 2. 5. Obesity with a body mass index of 33. 6. Do not resuscitate/do not intubate. PLAN: The patient is currently in the ICU, while we decrease the patient's steroids. The patient's insulin is being managed by Dr. Daniel. The patient is on Tapazole for the hypothyroidism. We will continue with that. She is on doxycycline for antibiotics. She is on Lipitor for dyslipidemia. She is on Lovenox for anticoagulation. She is going to continue with Zofran as needed. She has also been started on sotalol. The patient's steroids are being tapered. She is agreeable to go to TCU once she is stable and her heart rate is better managed. Tod Woodruff MD
[2017-05-21] MEDS: MethylPREDNISolone 40 mg Vial IVP SCH ×2 (12:06→21:44)
[2017-05-21] MEDS: Digoxin 500 mcg/2ml (0.5 mg/2ml) Inj IVP SCH (15:00)
--- NOTE | 2017-05-21 15:02 | PN ---
DATE: 05/21/2017 SUBJECTIVE: The patient is feeling much better. No shortness of breath. No chest pain. PHYSICAL EXAMINATION: VITAL SIGNS: Blood pressure 140/105, heart rate is 109, atrial fibrillation. NECK: Negative JVD. LUNGS: Without rales. HEART: S1, S2. EXTREMITIES: Without edema. LABORATORY DATA: Hemoglobin is 16.1. Chemistries, glucose remains elevated at 342, potassium is 4.2. IMPRESSION: 1. Atrial fibrillation with rapid ventricular response, currently on p.o. medications only. 2. Morbid obesity. 3. Diabetes mellitus. 4. Congestive heart failure which is better. 5. Palpitations. PLAN: Given these findings, we will increase her p.o. Cardizem to 90 t.i.d. In addition, we will change her Lasix from IV Lasix to p.o. Lasix. Aubrey Lopez MD
[2017-05-21] MEDS: Insulin Detemir 100 units/ml Vial (Levemir) SC SCH (21:56)
[2017-05-22] MEDS: Pantoprazole 40 mg EC Tab PO SCH (05:47)
[2017-05-22 06:26] LABS: GRAN # 9.25 (1.4-6.5); GRAN % 81.5 % (50.0-68.0); HEMATOCRIT 47.2 % (36.0-48.0); LYMPH # 1.1 (1.2-3.4); LYMPH % 9.9 % (22.0-35.0); MEAN CELL VOLUME 94.4 fl (80.0-105.0); MEAN CORPUSCULAR HEMOGLOBIN 33.2 pg (25.0-35.0); MEAN CORPUSCULAR HGB CONC 35.2 g/dl (31.0-37.0); MEAN PLATELET VOLUME 11.6 fl (7.0-11.0); MONO % 8.6 % (1.0-6.0); RED CELL DISTRIBUTION WIDTH 12.8 % (11.5-14.5); WHITE BLOOD COUNT 11.4 10^3/ul (4.5-11.0)
[2017-05-22 06:44] LABS: ALB/GLOB RATIO 1.2 (1.1-1.8); ALKALINE PHOSPHATASE 58 U/L (38-126); ALT/SGPT 63 U/L (7-56); AST/SGOT 38 U/L (14-36); BILIRUBIN,TOTAL 0.7 mg/dL (0.2-1.3); BLOOD UREA NITROGEN 35 mg/dL (7-21); CALCIUM 9.2 mg/dL (8.4-10.5); CARBON DIOXIDE 30 mmol/L (21-33); CHLORIDE 102 mmol/L (98-107); GFR AFRICAN-AMERICAN > 60; GLUCOSE,RANDOM 260 mg/dL (70-110); POTASSIUM 4.3 mmol/L (3.6-5.0); SODIUM 137 mmol/L (132-148); TOTAL PROTEIN 6.6 g/dL (5.8-8.3)
[2017-05-22] MEDS: Insulin Lispro (humaLOG) LOW Coverage SC SCH ×3 (07:39→16:19)
[2017-05-22] MEDS: Insulin Lispro 1 UNITS/0.01 ML SC SCH ×3 (07:39→16:21)
--- NOTE | 2017-05-22 08:04 | PN ---
DATE: 05/22/2017(610am--700am) PULMONARY NOTE SUBJECTIVE: The patient appears very comfortable this morning. She is not short of breath at rest. PHYSICAL EXAMINATION: VITAL SIGNS: Temperature is 98.0, pulse 87, respirations 14, blood pressure 149/86. Oxygen saturation on nasal cannula is 97%. HEENT: Normocephalic, atraumatic. NECK: No JVD. CARDIOVASCULAR: Systolic ejection murmur at the lower left sternal border. Positive S3 gallop. LUNGS: Decreased breath sounds at the bases with minimal crackles. No rhonchi or wheezing this morning. EXTREMITIES: Less edema. No cyanosis, no clubbing. Calves are nontender to palpation. GI: Abdomen is soft, nontender and nondistended. Bowel sounds are positive. SKIN: No acute rash. NEUROLOGIC: Exam limited at the present time. PERTINENT LABORATORY DATA: Chest x-ray was repeated on 05/20/2017 and reviewed. There is further clearing of the pulmonary edema and pleural effusions. IMPRESSION: 1. Acute congestive heart failure. 2. Rapid atrial fibrillation. 3. Chronic obstructive pulmonary disease. 4. Mild bronchospasm. 5. Bilateral pleural effusions. 6. Coronary artery disease. PLAN: The patient appears very comfortable this morning. She is not short of breath at rest. She states she is feeling much much better overall. On physical exam, her bronchospasm continues to slowly resolve. In addition, the alveolar arterial gradient also continues to resolve. I will continue with the current nebulizer treatments and low-dose intravenous steroids (decreased yesterday) for now. I did review the last chest x-ray done - above. The x-ray shows continued improvement. I would continue with the treatment for congestive heart failure and the cardiac arrhythmias as per Cardiology. Input by Dr. Lopez is noted. Clinical status of the patient is significantly improved. I will discuss the above with the entire ICU team the next few moments. I will also discuss the above with the attending physician later this morning. Cliff Vaz MD SAVANAH
[2017-05-22] MEDS: Budesonide 0.5 mg/2 ml Inhal Susp UD IH SCH (08:07)
--- NOTE | 2017-05-22 09:41 | PN ---
DATE: 05/21/2017 PULMONARY PROGRESS NOTE (ICU) SUBJECTIVE: The patient is feeling markedly improved today with the institution of Xopenex inhalation solution 4 times daily at a low dose (0.63). She feels good. She still has a tachycardia of around 100. She is feeling better. We must consider in the future as a re-additional of low-dose Spiriva, which is not on the formulary. Once we see that she is tolerating the current dose of Xopenex, we will need to further decrease the corticosteroids and attempt a LAMA medication. At this time, however, in the ICU, the patient is doing quite well. PHYSICAL EXAMINATION: GENERAL: She is resting comfortably. She does still have a little bit of cough, but she has no acute respiratory distress. She breathless after a movement, going to the bathroom caused her to have significant dyspnea and cough this morning. It resolved almost spontaneously as to the exertion. VITAL SIGNS: Stable. She has a heart rate of 100, respiratory rate of 18, blood pressure 130/72, O2 sat 96 on supplement oxygen. NECK: Supple. No JVD. No lymphadenopathy. No bruit. CARDIOVASCULAR: Regular rhythm, S1, S2 with a soft systolic ejection murmur at the lower left sternal border LUNGS: Global decrease in breath sounds. There are no longer rhonchi today. Wheezing is absent as well. ABDOMEN: Soft. Bowel sounds normoactive without mass, guarding, rebound or organomegaly. EXTREMITIES: Reveal no clubbing, cyanosis or edema. There is no Homans' sign. SKIN: No rash, no excoriation. Lymph nodes negative. NEUROLOGIC: No focal findings. Mental status is good. Her mood is excellent. IMPRESSION: 1. Cardiac arrhythmia, new onset atrial fibrillation. 2. Acute bronchospasm. 3. Severe baseline asthma for anxiety. 4. Congestive heart failure. 5. Coronary artery disease. 6. Development of chronic obstructive pulmonary disease with air trapping. PLAN: As discussed above, consider tapering the steroids and adding low-dose LAMA, Spiriva 1.25 two puffs daily. It can even be started at one puff daily. It is not on formulary, however, and we need to discuss this with pharmacy. We will follow closely with you and decide on the need for further intervention. Since I am going back to the office in the morning and we will not be covering in the ICU, please make sure that I am kept informed of the patient's status well if I am not in the hospital, feel free to call for any questions that need to be asked. Thank you for giving me the opportunity to follow my patient. Jeff Cordoba MD MTDD
[2017-05-22] MEDS: MethylPREDNISolone 40 mg Vial IVP SCH (09:54)
--- NOTE | 2017-05-22 10:08 | PN ---
DATE: 05/21/2017 ENDOCRINOLOGY FOLLOWUP NOTE DATE: LOCATION: ICU 129, room 1. SUBJECTIVE: This is a 77-year-old female with acute exacerbation of COPD and asthmatic bronchitis, currently on tapering IV steroid dose regimen as noted and is being followed closely for metabolic management. She also has overt hyperthyroidism and currently tolerating medical therapy as given. LABORATORY DATA: Her glucose values are fluctuating, but improved on the Lasix; glucose levels have ranged from 204-256 and 267 mg/dL. Her latest chemistry shows BUN of 35, sodium 136,potassium 4.2, chloride 101, CO2 28, glucose 342, and creatinine 0.8. Her latest thyroid studies showed a TSH of 0.08 with a free T4 of 0.91 and total T4 of 5.6. PLAN: So at this time, we will continue the same Tapazole given as 10 mg b.i.d. to allow for dose equilibration. It takes 4-6 weeks for normalization of the suppressed TSH level as noted. We will continue also her basal and bolus insulin regimen as given, as steroids are being tapered down accordingly. We will continue the Humalog at 12 units subcutaneous t.i.d. before meals and Levemir of 40 units subcutaneous at bedtime daily is given. We will titrate incremental as indicated to optimize metabolic control. We will follow with you. Hamida Daniel MD
--- NOTE | 2017-05-22 10:24 | DS ---
HISTORY OF PRESENT ILLNESS: The patient has no complaints of any chest pain. No shortness of breath. No headaches or dizziness. She was initially admitted to the hospital because of atrial fibrillation with rapid rate. She was placed on IV Cardizem and digoxin. 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 Her thyroid was abnormal. She was hyperthyroid. Her thyroid medication was stopped and she was started on methimazole to help control her thyroid function. She was seen by Dr. Daniel from Endocrinology. She has no complaints of any chest pain. No shortness of breath. No headaches or dizziness. She is open to the idea of going to Transitional Care Unit. PHYSICAL EXAMINATION: VITAL SIGNS: Temperature is 98, pulse is 63, blood pressure is 132/80, and respirations are 14. GENERAL: The patient is lying in bed, flat, comfortable. HEENT: No oral lesion. Anicteric sclerae. Moist mucosa. NECK: No JVD, adenopathy, or thyromegaly. CARDIOVASCULAR: S1 and S2, regular. No murmurs, rubs, or gallops. LUNGS: Clear to auscultation bilaterally. No wheeze, rales, or rhonchi. ABDOMEN: Bowel sounds are positive, soft, nontender and nondistended. EXTREMITIES: No cyanosis, clubbing or edema. LABORATORY DATA: White count of 11.4. Chemistry shows creatinine of 0.8. DISCHARGE DIAGNOSES: 1. Atrial fibrillation, controlled. 2. Chronic obstructive pulmonary disease. 3. Hypertension. 4. Diabetes type 2. 5. Obesity with body mass index of 33. 6. Do not resuscitate/do not intubate. PLAN: The patient is currently comfortable. She is going to continue with diltiazem. The patient's cultures have been negative. I will discontinue the patient's doxycycline at this point. She has had about 5 days of antibiotics. She is on Eliquis for her atrial fibrillation. She is on digoxin. I will decrease her digoxin dose to 0.25 p.o. She is receiving Xopenex. She was having nausea, but she is improved. She is on Tapazole. She is on Pulmicort daily. She is on Lipitor for dyslipidemia. She is receiving insulin. She is on sotalol. The patient is continued to be followed by Dr. Lopez and Dr. Vaz. I will wait to see if she gets accepted to TCU, if she does, we will discharge her to [facility]. Tod Woodruff MD
--- NOTE | 2017-05-22 13:23 | PN ---
DATE: 05/22/2017 ENDOCRINOLOGY FOLLOWUP NOTE LOCATION: ICU 129, room 1. SUBJECTIVE: This is a 77-year-old female presenting here with acute exacerbation of COPD and asthmatic bronchitis and currently on IV steroid therapy. As expected, the patient had hyperglycemic accelerations as noted. She is improving clinically and hemodynamically and her steroid doses have been tapered down as noted to 20 mg IV every 12 hours as ordered. She also has overt subclinical hyperthyroidism and has been started on Tapazole given as 10 mg b.i.d. as ordered. Her latest chemistry showed a BUN of 85, sodium 137, potassium 4.3, chloride 102, CO2 30, glucose 260, and creatinine 0.8. So at this time, we will continue the same insulin bolus, insulin regimen to allow for dose equilibration and keep her on the Humalog given as 12 units subcu t.i.d. before meals as ordered. We will continue the Levemir at 20 units subcu at one time daily as given. We will also continue the Tapazole given as 10 mg b.i.d. to allow for dose equilibration and repeat the thyroid studies in the morning as ordered. We will follow. Hamida Daniel MD
[2017-05-22] MEDS ORDERED: Digoxin 125 mcg (0.125 mg) Tab PO SCH (14:00)
[2017-05-22 14:12] VITALS: BP 136/85; PULSE 102
[2017-05-22] MEDS: Levalbuterol 0.63 MG/3 ML Inhal Soln UD IH PRN (14:18)
[2017-05-22 16:26] VITALS: TEMP 98.6
[2017-05-22 16:27] VITALS: RESP 19; O2SAT 95
[2017-05-22 16:29] VITALS: PULSE 102
--- NOTE | 2017-05-23 08:24 | PN ---
PROCEDURE DATE: 05/22/2017 CARDIOLOGY FOLLOWUP SUBJECTIVE: The patient is ambulating with the nurse on the floor. PHYSICAL EXAMINATION: VITAL SIGNS: Stable. Heart rate at rest is in the 90s. NECK: Negative JVD. LUNGS: Decreased breath sounds. HEART: S1 and, S2. EXTREMITIES: Without edema. LABORATORY DATA: Reviewed. IMPRESSION: 1. Atrial fibrillation, finally controlled on multiple medications. 2. Morbid obesity. 3. Diabetes mellitus. 4. Hypertension. PLAN: Given these findings, we will continue the short-acting Cardizem for now. In the morning, we will change to long-acting Cardizem. Aubrey Lopez MD
== END 2017-05-22 17:28 | DRG 308 ==
LOC: ED 12:38 → ERH 15:00 → CCU 21:54
PROVIDERS: ADMIT Internal Medicine Nephrology; ATTEND Internal Medicine Nephrology
DX: I48.2 Chronic atrial fibrillation (principal); I50.21 Acute systolic (congestive) heart failure; J44.1 Chronic obstructive pulmonary disease with (acute) exacerbation; I11.0 Hypertensive heart disease with heart failure; E05.00 Thyrotoxicosis with diffuse goiter without thyrotoxic crisis or storm; E11.9 Type 2 diabetes mellitus without complications; E78.5 Hyperlipidemia, unspecified; Z66 Do not resuscitate; E66.01 Morbid (severe) obesity due to excess calories; I25.10 Atherosclerotic heart disease of native coronary artery without angina pectoris; F41.9 Anxiety disorder, unspecified; Z77.22 Contact with and (suspected) exposure to environmental tobacco smoke (acute) (chronic); Z68.33 Body mass index [BMI] 33.0-33.9, adult; Z79.4 Long term (current) use of insulin; Z88.0 Allergy status to penicillin; Z95.5 Presence of coronary angioplasty implant and graft

== ENCOUNTER 2017-05-22 16:34 | Inpatient (IN) | payer OTHER, MEDICARE ==
[2017-05-22 17:49] VITALS: BMI 31.8
[2017-05-22] MEDS: Budesonide 0.5 mg/2 ml Inhal Susp UD IH SCH (20:12)
[2017-05-22] MEDS: MethylPREDNISolone 40 mg Vial IVP SCH (22:34)
[2017-05-22] MEDS: Insulin Lispro (humaLOG) LOW Coverage SC SCH (22:35)
[2017-05-22] MEDS: Insulin Detemir 100 units/ml Vial (Levemir) SC SCH (22:35)
[2017-05-23] MEDS: Pantoprazole 40 mg EC Tab PO SCH (06:23)
[2017-05-23] MEDS: Insulin Lispro 1 UNITS/0.01 ML SC SCH ×3 (06:35→17:44)
[2017-05-23] MEDS: Insulin Lispro (humaLOG) LOW Coverage SC SCH ×4 (06:38→22:14)
[2017-05-23] MEDS: Budesonide 0.5 mg/2 ml Inhal Susp UD IH SCH ×2 (07:35→21:35)
--- NOTE | 2017-05-23 08:28 | PN ---
DATE: 05/23/2017 PULMONARY NOTE SUBJECTIVE: The patient appears comfortable this morning. She is not short of breath at rest. PHYSICAL EXAMINATION: VITAL SIGNS: Temperature is 97.8, pulse 102, respirations 18, blood pressure 124/79. Oxygen saturation on nasal cannula is 94-95%. HEENT: Normocephalic, atraumatic. NECK: No JVD. CARDIOVASCULAR: Systolic ejection murmur at the lower left sternal border. Positive S3 gallop. LUNGS: Decreased breath sounds at the bases with minimal crackles. No rhonchi or wheezing this morning. EXTREMITIES: Less edema. No cyanosis, no clubbing. Calves are nontender to palpation. GI: Abdomen is soft, nontender, nondistended. Bowel sounds are positive. SKIN: No acute rash. NEUROLOGIC: Exam limited at the present time. IMPRESSION: 1. Acute congestive heart failure. 2. Rapid atrial fibrillation. 3. Chronic obstructive pulmonary disease. 4. Mild bronchospasm. 5. Bilateral pleural effusions. 6. Coronary artery disease. PLAN: The patient appears very comfortable this morning. She is not short of breath at rest. She does state to feeling much better overall. On physical exam, only minimal bronchospasm is noted. In addition, there is no significant alveolar-arterial gradient. I will continue the current nebulizer treatments(inhaled Pulmicort) and low-dose intravenous steroids for now. I would continue with the treatment for congestive heart failure and rapid atrial fibrillation as per Cardiology. Input by Dr. Lopez is noted. The patient is now on the Transitional Unit - where she will participate with physical therapy. Her clinical status is significantly improved - compared to the initial presentation. I will discuss the above with Dr. Woodruff. Cliff Vaz MD MTDD
[2017-05-23] MEDS: MethylPREDNISolone 40 mg Vial IVP SCH (11:00)
[2017-05-23] MEDS: Digoxin 125 mcg (0.125 mg) Tab PO SCH (14:18)
--- NOTE | 2017-05-23 18:43 | PN ---
DATE: ENDOCRINOLOGY FOLLOWUP NOTE LOCATION: In [facility], room 327. SUBJECTIVE: This is a 77-year-old female with recent uncontrolled type 2 insulin-requiring diabetes related to the intercurrent IV steroid therapy, has been tapered down and is also being followed closely for metabolic management. She has been given IV steroid for acute exacerbation of COPD and asthmatic bronchitis with supervening hyperglycemic accelerations thereof. Her glucose values have been noted accordingly. The latest chemistry showed a BUN of 35, sodium of 137, potassium of 4.3, chloride is 102, CO2 is 30, glucose 305 with A1c of 8.9%. So at this time, we will continue the same basal and bolus insulin regimen to allow for dose equilibration and keep her on the Humalog given as 12 units subcutaneously t.i.d. before meals and Levemir at 40 units subcutaneously at bedtime daily as given. We will titrate incremental as indicated to optimize metabolic control. We will follow with you. Hamida Daniel MD
--- NOTE | 2017-05-23 19:00 | PN ---
DATE: 05/23/2017 SUBJECTIVE: The patient has no complaints of any chest pain. No shortness of breath. No headaches or dizziness. The patient's initial H and P was reviewed and I do agree with. The patient had uncontrolled AFib. She was in the ICU, she had improved, and she is now in the Transitional Care Unit for rehab. She has no complaints of any chest pain or shortness of breath. No headaches or dizziness. The patient had hyperthyroidism that was secondary to high doses of thyroid medications that she was taking. She was put on metolazone to help control her rate. PHYSICAL EXAMINATION: VITAL SIGNS: Temperature is 98, pulse is 60, blood pressure is 119/67, respirations are 18, and O2 saturation is 97%. GENERAL: The patient is lying in bed, flat, comfortable. HEENT: No oral lesion. Anicteric sclerae. Moist mucosa. NECK: No JVD, adenopathy, or thyromegaly. CARDIOVASCULAR: S1 and S2, regular. No murmurs, rubs, or gallops. LUNGS: Clear to auscultation bilaterally. No wheeze, rales, or rhonchi. ABDOMEN: Bowel sounds are positive, soft, nontender and nondistended. EXTREMITIES: No cyanosis, clubbing or edema. ASSESSMENT: 1. Atrial fibrillation, controlled. 2. Chronic obstructive pulmonary disease. 3. Hypertension. 4. Diabetes type 2. 5. Obesity with body mass index of 33. 6. Do not resuscitate/do not intubate. PLAN: The patient is currently on aspirin. She is going to continue with Cardizem for her atrial fibrillation. The patient is on sotalol. She is going to be on insulin for her diabetes. She is on Lasix daily. The patient is going to continue with Lipitor for dyslipidemia. She is on Tapazole. The patient is going to be on a heart healthy diet. CONDITION: Stable. ACTIVITIES: Increase as tolerated. Tod Woodruff MD
[2017-05-23] MEDS: Insulin Detemir 100 units/ml Vial (Levemir) SC SCH (22:13)
[2017-05-24] MEDS: Pantoprazole 40 mg EC Tab PO SCH (06:32)
[2017-05-24] MEDS: Insulin Lispro (humaLOG) LOW Coverage SC SCH ×4 (06:32→22:12)
[2017-05-24] MEDS: Insulin Lispro 1 UNITS/0.01 ML SC SCH ×3 (06:46→17:30)
[2017-05-24] MEDS: Budesonide 0.5 mg/2 ml Inhal Susp UD IH SCH ×2 (07:26→20:59)
[2017-05-24 07:41] LABS: BASO # 0.01 K/mm3 (0.0-2.0); BASO % 0.1 % (0.0-3.0); EOS % 0.2 % (1.5-5.0); GRAN # 10.71 (1.4-6.5); GRAN % 71.4 % (50.0-68.0); HEMATOCRIT 45.2 % (36.0-48.0); LYMPH # 2.7 (1.2-3.4); LYMPH % 18.2 % (22.0-35.0); MEAN CELL VOLUME 93.8 fl (80.0-105.0); MEAN CORPUSCULAR HEMOGLOBIN 32.4 pg (25.0-35.0); MEAN CORPUSCULAR HGB CONC 34.5 g/dl (31.0-37.0); MONO # 1.5 (0.1-0.6); MONO % 10.1 % (1.0-6.0); RED CELL DISTRIBUTION WIDTH 12.9 % (11.5-14.5)
[2017-05-24 08:13] LABS: ALB/GLOB RATIO 1.1 (1.1-1.8); ALKALINE PHOSPHATASE 57 U/L (38-126); ALT/SGPT 58 U/L (7-56); AST/SGOT 45 U/L (14-36); BILIRUBIN,TOTAL 0.7 mg/dL (0.2-1.3); BLOOD UREA NITROGEN 32 mg/dL (7-21); CALCIUM 8.8 mg/dL (8.4-10.5); CARBON DIOXIDE 25 mmol/L (21-33); CHLORIDE 102 mmol/L (98-107); GFR AFRICAN-AMERICAN > 60; GLUCOSE,RANDOM 179 mg/dL (70-110); POTASSIUM 4.2 mmol/L (3.6-5.0); SODIUM 136 mmol/L (132-148)
[2017-05-24 08:39] LABS: THYROID STIMULATING HORMONE 0.72 mIU/mL (0.46-4.68)
--- NOTE | 2017-05-24 08:57 | PN ---
DATE: 05/24/2017 PULMONARY PROGRESS NOTE SUBJECTIVE: The patient appears comfortable this morning. She is not short of breath at rest. PHYSICAL EXAMINATION: VITAL SIGNS: Temperature is 97.9, pulse is 63, respirations are 18/20, and blood pressure is 120/65. Oxygen saturation on nasal cannula is 95% to 98%. HEENT: Normocephalic and atraumatic. NECK: No JVD. CARDIOVASCULAR: Systolic ejection murmur at the lower left sternal border. Questionable S3 gallop. LUNGS: Decreased breath sounds at the bases with minimal crackles. No rhonchi or wheezing this morning. EXTREMITIES: Less edema. No cyanosis and no clubbing. Calves are nontender to palpation. GASTROINTESTINAL: Abdomen is soft, nontender and nondistended. Bowel sounds are positive. SKIN: No acute rash. NEUROLOGIC: Exam is limited at the present time. IMPRESSION 1. Acute congestive heart failure. 2. Rapid atrial fibrillation. 3. Chronic obstructive pulmonary disease. 4. Mild bronchospasm. 5. Bilateral pleural effusions. 6. Coronary artery disease. PLAN: The patient appears comfortable this morning. She is not short of breath at rest. She does state to feeling much, much better overall. On physical exam, her bronchospasm continues to resolve. In addition, the alveolar arterial gradient also continues to resolve. I was called by the nursing staff yesterday. Apparently, the patient lost her intravenous access. Thus, I did change the patient to oral steroids yesterday. She is also on inhaled Pulmicort. I would continue with the treatment for congestive heart failure and cardiac arrhythmias as per cardiology. Clinical status of the patient is significantly improved - compared to the initial presentation. I will discuss the above with Dr. Woodruff. Cliff Vaz MD MTDD
[2017-05-24] MEDS: Digoxin 125 mcg (0.125 mg) Tab PO SCH (14:30)
--- NOTE | 2017-05-24 15:34 | PN ---
DATE: ENDO FOLLOWUP NOTE LOCATION: Room 327, [facility]. SUMMARY: This is a 77-year-old female with recent acute exacerbation of COPD currently on a tapering dose of oral steroid therapy as given. She initially was given IV steroid with transient hyperglycemic accelerations as noted thereof. She has since then improved clinically and hemodynamically as noted thereof. From the metabolic view point, her glycemic levels have also improved and have ranged from 140-193 and 230 mg/dL. Her latest chemistry showed BUN of 32, sodium of 136, potassium of 4.2, chloride of 102, CO2 of 25, glucose of 179, and creatinine of 0.8. So at this time, we will modify and lower her insulin regimen with Levemir to be given as 24 units subcu at bedtime daily to start tonight. We will titrate incrementally as indicated to optimize metabolic control. We will also continue the low-dose correction scale using Humalog insulin as given. We will also lower the Humalog to 6 units subcu t.i.d. before meals to start at dinner time today as ordered. We will obtain serial chemistries and supplement accordingly as needed. We will follow and advice accordingly. Hamida Daniel MD
[2017-05-24] MEDS: Levalbuterol 0.63 MG/3 ML Inhal Soln UD IH PRN (20:59)
[2017-05-24] MEDS: Insulin Detemir 100 units/ml Vial (Levemir) SC SCH (22:13)
[2017-05-25] MEDS: Pantoprazole 40 mg EC Tab PO SCH (05:44)
[2017-05-25] MEDS: Insulin Lispro (humaLOG) LOW Coverage SC SCH ×4 (06:55→21:49)
[2017-05-25] MEDS: Insulin Lispro 1 UNITS/0.01 ML SC SCH ×4 (06:56→17:38)
[2017-05-25] MEDS: Budesonide 0.5 mg/2 ml Inhal Susp UD IH SCH ×2 (07:28→20:58)
--- NOTE | 2017-05-25 08:10 | PN ---
DATE: 05/25/2017 PULMONARY NOTE SUBJECTIVE: The patient appears comfortable this morning. She is not short of breath at rest. PHYSICAL EXAMINATION: VITAL SIGNS: Temperature is 98.0, pulse 64, respirations 18, blood pressure 137/78. Oxygen saturation on room air is 94-96%. HEENT: Normocephalic, atraumatic. NECK: No JVD. CARDIOVASCULAR: Systolic ejection murmur at the lower left sternal border. Questionable S3 gallop. LUNGS: Improved breath sounds at the bases with less crackles. No rhonchi or wheezing. EXTREMITIES: Less edema. No cyanosis, no clubbing. Calves are nontender to palpation. GI: Abdomen is soft, nontender and nondistended. Bowel sounds are positive. SKIN: No acute rash. NEUROLOGIC: Exam limited at the present time. IMPRESSION: 1. Acute congestive heart failure. 2. Rapid atrial fibrillation. 3. Chronic obstructive pulmonary disease. 4. Mild bronchospasm. 5. Bilateral pleural effusions. 6. Coronary artery disease. PLAN: The patient appears comfortable this morning. She is not short of breath at rest. She still does have some mild dyspnea on exertion. However, she states to feeling much better overall. On physical exam, her bronchospasm continues to resolve. In addition, the oxygen saturation on room air is now 94-96%. I will continue the current nebulizer treatments and low dose oral steroids for now. The patient also remains on Lasix therapy. Clinical status of the patient is significantly improved. I will discuss the above with Dr. Woodruff. Cliff Vaz MD MTDEdgar
[2017-05-25] MEDS: Digoxin 125 mcg (0.125 mg) Tab PO SCH (13:43)
--- NOTE | 2017-05-25 15:30 | PN ---
DATE: 05/25/2017 SUBJECTIVE: The patient has no complaints of any chest pain. No shortness of breath. No headaches or dizziness. She states she is ambulating better. PHYSICAL EXAMINATION: VITAL SIGNS: Temperature is 98.0, pulse of 54, blood pressure is 137/78, and respirations 18. GENERAL: The patient is lying in bed, flat, comfortable. HEENT: No oral lesion. Anicteric sclerae. Moist mucosa. NECK: No JVD, adenopathy, or thyromegaly. CARDIOVASCULAR: S1 and S2, regular. No murmurs, rubs, or gallops. LUNGS: Clear to auscultation bilaterally. No wheeze, rales, or rhonchi. ABDOMEN: Bowel sounds are positive, soft, nontender, and nondistended. EXTREMITIES: No cyanosis, clubbing or edema. LABORATORY DATA: White count of 15 and hemoglobin is 15.6. Creatinine 0.8. ASSESSMENT: 1. Atrial fibrillation, controlled on Eliquis for anticoagulation. 2. Chronic obstructive pulmonary disease. 3. Hypertension. 4. Diabetes type 2. 5. 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 6. Obesity with a body mass index of 33. 7. DNR/DNI. PLAN: The patient is currently comfortable. She is receiving insulin for diabetes. She is on Lasix daily. She is on Levemir as well. The patient is on Lipitor for dyslipidemia. She is on prednisone. She is being followed by Cardiology and Pulmonary. She is currently ambulating better. She has no complaints of any pain. Tod Woodruff MD
--- NOTE | 2017-05-25 18:39 | PN ---
DATE: 05/25/2017 SUBJECTIVE: This is a 77-year-old female with recent uncontrolled type 2 insulin-requiring diabetes, now being followed closely for metabolic management. She presented here with acute exacerbation of COPD and started on IV steroids, which now has been switched over to oral steroids as given. Her glucose values fluctuated, but improved. The glucose levels have ranged 160 to 166 and 288 mg/dL. Her latest chemistry showed a BUN of 32, sodium 136, potassium 4.2, chloride 102, CO2 25, glucose 179 and creatinine 0.8. She also has overt subclinical hyperthyroidism and started on Tapazole, given as 10 mg b.i.d. The repeat thyroid study showed a T4 of 4.0 with a TSH of 0.72. So at this time, we will lower the Tapazole down to 5 mg once daily as ordered. We will titrate incrementally as indicated to optimize metabolic control. We will obtain serial chemistries and supplement accordingly as needed. We will also modify the basal and bolus insulin regimen as given to a much lower dose of Levemir given as 24 units subcu at bedtime daily with Humalog at 6 units subcu t.i.d. before meals as given. We will titrate incrementally as indicated to optimize metabolic control. We will follow this. Hamida Daniel MD cc:
[2017-05-25] MEDS: Levalbuterol 0.63 MG/3 ML Inhal Soln UD IH PRN (20:59)
[2017-05-25] MEDS: Insulin Detemir 100 units/ml Vial (Levemir) SC SCH (21:49)
[2017-05-26] MEDS: Pantoprazole 40 mg EC Tab PO SCH (05:26)
[2017-05-26] MEDS: Insulin Lispro (humaLOG) LOW Coverage SC SCH ×4 (06:33→21:19)
[2017-05-26] MEDS: Insulin Lispro 1 UNITS/0.01 ML SC SCH ×3 (06:34→17:25)
[2017-05-26] MEDS: Budesonide 0.5 mg/2 ml Inhal Susp UD IH SCH ×2 (07:37→20:43)
--- NOTE | 2017-05-26 07:58 | PN ---
DATE: 05/26/2017 PULMONARY PROGRESS NOTE SUBJECTIVE: The patient appears comfortable this morning. She is not short of breath at rest. PHYSICAL EXAMINATION: VITAL SIGNS: Temperature is 97.9, pulse is 70, respirations are 18, and blood pressure is 111/73. Oxygen saturation on room air is 95%. HEENT: Normocephalic and atraumatic. NECK: No JVD. CARDIOVASCULAR: Systolic ejection murmur at the lower left sternal border. Questionable S3 gallop. LUNGS: Better breath sounds at the bases, with less crackles. No rhonchi or wheezing. EXTREMITIES: Less edema. No cyanosis and no clubbing. Calves are nontender to palpation. GASTROINTESTINAL: Abdomen is soft, nontender and nondistended. Bowel sounds are positive. SKIN: No acute rash. NEUROLOGIC: Exam is limited at the present time. IMPRESSION 1. Acute congestive heart failure. 2. Rapid atrial fibrillation. 3. Chronic obstructive pulmonary disease. 4. Mild bronchospasm. 5. Bilateral pleural effusions. 6. Coronary artery disease. PLAN: The patient appears comfortable this morning. She is not short of breath at rest. She is much less dyspneic on exertion. She does state to feeling much, much better overall. On physical exam, her bronchospasm continues to resolve. In addition, the alveolar arterial gradient also continues to resolve. I will continue the current inhaled steroids and decrease the oral steroids this morning. The patient remains on digoxin and Lasix. I would continue with treatment for congestive heart failure and cardiac arrhythmias as per cardiology. Clinical status of the patient is significantly improved - compared to the initial presentation. I will discuss the above with Dr. Woodruff. Cliff Vaz MD SAVANAH
[2017-05-26] MEDS: methIMAzole 5 MG TAB PO SCH (11:00)
[2017-05-26] MEDS: Digoxin 125 mcg (0.125 mg) Tab PO SCH (14:54)
--- NOTE | 2017-05-26 17:58 | PN ---
DATE: ENDOCRINOLOGY FOLLOWUP NOTE LOCATION: Room 327. SUBJECTIVE: This is a 77-year-old female with recent uncontrolled type 2 insulin-requiring diabetes, now being followed closely for metabolic management. Her glycemic levels are fluctuating, but improved, and the latest glucose levels have ranged from 92 to 160 and 234 mg per dL. Her latest chemistries include a BUN of 32, sodium 136, potassium 4.2, chloride 102, CO2 25, glucose 179, and creatinine 0.8. Her repeat thyroid study showed a T4 of 4.0 and a TSH of 0.72. So at this time, we will modify and lower the Tapazole to 5 mg once daily as ordered. We will also continue to modify basal and bolus insulin regimen to allow for dose equilibration, especially that her oral steroids are being tapered down as noted. We will continue the Levemir at 24 units subcu at bedtime daily as ordered. We will also continue the Humalog given as 6 units subcu t.i.d. before meals as given. We will continue the low-dose correction scale using Humalog insulin as ordered. We will follow with you. Hamida Daniel MD
[2017-05-26] MEDS: Insulin Detemir 100 units/ml Vial (Levemir) SC SCH (21:18)
[2017-05-27] MEDS: Pantoprazole 40 mg EC Tab PO SCH (05:50)
[2017-05-27] MEDS: Insulin Lispro 1 UNITS/0.01 ML SC SCH ×3 (06:35→17:27)
[2017-05-27] MEDS: Insulin Lispro (humaLOG) LOW Coverage SC SCH ×4 (06:35→22:05)
[2017-05-27] MEDS: Budesonide 0.5 mg/2 ml Inhal Susp UD IH SCH ×2 (07:29→20:11)
[2017-05-27] MEDS: methIMAzole 5 MG TAB PO SCH (11:00)
--- NOTE | 2017-05-27 14:35 | PN ---
DATE: ENDOCRINOLOGY FOLLOWUP NOTE LOCATION: Room 327. SUBJECTIVE: This is a 77-year-old female with recent uncontrolled type 2 insulin-requiring diabetes, previously on IV steroids and currently switched over to oral steroids, was prednisone given at 20 mg once daily as ordered. Her glycemic levels are fluctuating and delayed. These glucose levels are varying from 181 to 282 and 361 mg/dL. Her latest chemistries showed BUN of 32, sodium 136, potassium 4.2, chloride 102, CO2 25, glucose 179, and creatinine 0.8. The latest thyroid study showed T4 of 4.0 with TSH of 0.72. So at this time, we will modify once again her baseline bolus insulin regimen and increase the Levemir to 28 units subcu at bedtime daily to start tonight. We will also increase the Humalog to 8 units subcu t.i.d. before meals. It was started at lunchtime today as ordered. We will modify the coverage scale for hypoglycemia and detailed orders have been given. We will follow with you. Hamida Daniel MD
[2017-05-27] MEDS: Digoxin 125 mcg (0.125 mg) Tab PO SCH (14:47)
[2017-05-27] MEDS: Levalbuterol 0.63 MG/3 ML Inhal Soln UD IH PRN (20:11)
--- NOTE | 2017-05-27 21:44 | PN ---
DATE: SUBJECTIVE: The patient is a 77-year-old, seen and examined, sitting in chair, seems to be comfortable, and talking to her nephew. Seems to be awake, alert and oriented, communicative, eating and tolerating. PHYSICAL EXAMINATION VITAL SIGNS: She is afebrile, pulse 85, respirations 18, and blood pressure 124/81. LUNGS: Bilateral fair airflow. No rhonchi or crackles. HEART: S1 and S2 audible. ABDOMEN: Soft, obese, and nontender. No rebound. No guarding. NEUROLOGIC: She is awake, alert, oriented, and communicative. EXTREMITIES: Bilateral legs no edema. LABORATORY DATA: Her blood sugar is 181. ASSESSMENT: 1. Chronic obstructive pulmonary disease exacerbation, improving. 2. Chronic atrial fibrillation, currently on Eliquis. 3. Hypertension. 4. Rsr-rbhbhll-esxdkyrbt diabetes. 5. Deconditioning and difficulty walking. 6. Hypothyroidism. PLAN: Currently, the patient is on sotalol. She is on diltiazem. She is on aspirin and Eliquis and monitor her blood sugar. She is getting Lasix. She is on statins. She is on methimazole. She is getting nebulizer treatment. Encourage ambulation. We will follow up. Javier Rivera MD
[2017-05-27] MEDS ORDERED: Insulin Detemir 100 units/ml Vial (Levemir) SC SCH (22:00)
[2017-05-28] MEDS: Pantoprazole 40 mg EC Tab PO SCH (05:05)
[2017-05-28] MEDS: Insulin Lispro 1 UNITS/0.01 ML SC SCH ×3 (06:47→17:11)
[2017-05-28] MEDS: Insulin Lispro (humaLOG) LOW Coverage SC SCH ×4 (06:48→21:35)
[2017-05-28] MEDS: Budesonide 0.5 mg/2 ml Inhal Susp UD IH SCH ×2 (07:32→19:32)
[2017-05-28] MEDS: methIMAzole 5 MG TAB PO SCH (10:42)
--- NOTE | 2017-05-28 11:45 | PN ---
DATE: LOCATION: Room 327. SUBJECTIVE: This is a 77-year-old female with acute exacerbation of COPD currently on oral steroid therapy with improved glycemic profile as noted. Her glucose levels are ranging from 181-282 and 361 mg/dL. Her latest chemistries include BUN of 32, sodium of 136, potassium of 4.2, chloride of 102, CO2 of 25, glucose of 179, and creatinine of 0.8. The repeat thyroid studies showed T4 of 4.0 with TSH of 0.72, so at this time, we will continue the modified dosing of the Tapazole given as 5 mg once daily as ordered with the same basal and bolus insulin regimen as given. We will actually increase the Levemir to 30 units subcu at bedtime daily to start tonight. We will continue the Humalog given as 8 units subcu t.i.d. before meals as given. We will titrate incrementally as indicated to optimize metabolic control. We will obtain serial chemistries and supplement accordingly needed. We will follow and advice accordingly. Hamida Daniel MD
[2017-05-28] MEDS: Digoxin 125 mcg (0.125 mg) Tab PO SCH (14:58)
--- NOTE | 2017-05-28 15:57 | PN ---
DATE: SUBJECTIVE: The patient is a 77-year-old, seen and examined. Complained of less shortness of breath and feeling tired, otherwise, doing well. PHYSICAL EXAMINATION: VITAL SIGNS: She is afebrile, pulse 62, respirations 16, and blood pressure 120/69. LUNGS: Bilateral good airflow. No rhonchi or crackle. HEART: S1 and S2, audible. ABDOMEN: Soft, obese, and nontender. No rebound. No guarding. NEUROLOGIC: She is awake, alert, oriented, communicative, and ambulatory. LABORATORY DATA: Blood sugar is 181. ASSESSMENT: 1. Chronic obstructive pulmonary disease exacerbation. 2. Hypertension. 3. Chronic atrial fibrillation on Eliquis. 4. Hypothyroidism. 5. Morbid obesity. 6. Deconditioning and difficulty walking. PLAN: The patient is currently on sotalol, diltiazem, aspirin, Eliquis, and she is on digoxin. She is on Lasix. She is on prednisone of 20 mg daily. We will continue around Protonix and she will be reevaluated by Dr. Woodruff. Javier Rivera MD
[2017-05-28] MEDS: Nystatin 100,000 Units/gm Topical Pow(15 gm) TOP SCH (17:09)
[2017-05-28] MEDS: Levalbuterol 0.63 MG/3 ML Inhal Soln UD IH PRN (19:33)
[2017-05-28] MEDS ORDERED: Insulin Detemir 100 units/ml Vial (Levemir) SC SCH (22:00)
[2017-05-29] MEDS: Pantoprazole 40 mg EC Tab PO SCH (05:31)
[2017-05-29] MEDS: Insulin Lispro (humaLOG) LOW Coverage SC SCH ×4 (06:43→22:22)
[2017-05-29] MEDS: Insulin Lispro 1 UNITS/0.01 ML SC SCH ×3 (06:44→17:30)
[2017-05-29 07:17] LABS: BASO # 0.01 K/mm3 (0.0-2.0); BASO % 0.1 % (0.0-3.0); EOS # 0.1 (0.0-0.7); EOS % 0.5 % (1.5-5.0); GRAN # 12.94 (1.4-6.5); GRAN % 65.4 % (50.0-68.0); HEMATOCRIT 46.4 % (36.0-48.0); LYMPH # 4.9 (1.2-3.4); LYMPH % 24.6 % (22.0-35.0); MEAN CELL VOLUME 94.5 fl (80.0-105.0); MEAN CORPUSCULAR HEMOGLOBIN 32.4 pg (25.0-35.0); MEAN CORPUSCULAR HGB CONC 34.3 g/dl (31.0-37.0); MEAN PLATELET VOLUME 11.7 fl (7.0-11.0); MONO # 1.9 (0.1-0.6); MONO % 9.4 % (1.0-6.0); RED CELL DISTRIBUTION WIDTH 12.9 % (11.5-14.5); WHITE BLOOD COUNT 19.8 10^3/ul (4.5-11.0)
[2017-05-29 07:48] LABS: FREE T4 0.51 ng/dL (0.78-2.19); T4 3.5 ug/dL (5.5-11.0)
[2017-05-29 08:01] LABS: THYROID STIMULATING HORMONE 4.87 mIU/mL (0.46-4.68)
[2017-05-29 08:04] LABS: ALB/GLOB RATIO 1.1 (1.1-1.8); ALKALINE PHOSPHATASE 71 U/L (38-126); ALT/SGPT 108 U/L (7-56); AST/SGOT 69 U/L (14-36); BILIRUBIN,TOTAL 0.6 mg/dL (0.2-1.3); BLOOD UREA NITROGEN 30 mg/dL (7-21); CALCIUM 9.1 mg/dL (8.4-10.5); CARBON DIOXIDE 26 mmol/L (21-33); CHLORIDE 99 mmol/L (98-107); GFR AFRICAN-AMERICAN > 60; GLUCOSE,RANDOM 153 mg/dL (70-110); POTASSIUM 4.1 mmol/L (3.6-5.0); SODIUM 133 mmol/L (132-148); TOTAL PROTEIN 6.2 g/dL (5.8-8.3)
[2017-05-29] MEDS: Budesonide 0.5 mg/2 ml Inhal Susp UD IH SCH ×2 (08:05→19:58)
--- NOTE | 2017-05-29 08:06 | PN ---
DATE: 05/29/2017 PULMONARY PROGRESS NOTE SUBJECTIVE: The patient appears comfortable this morning. She is not short of breath at rest. PHYSICAL EXAMINATION: VITAL SIGNS: Temperature is 98.4, pulse is 65, respirations are 18, and blood pressure is 117/71. Oxygen saturation on nasal cannula is 98%. HEENT: Normocephalic and atraumatic. NECK: No JVD. CARDIOVASCULAR: Systolic ejection murmur at the lower left sternal border. No S3, gallop. LUNGS: Clear bilaterally this morning. EXTREMITIES: Less edema. No cyanosis and no clubbing. Calves are nontender to palpation. GASTROINTESTINAL: Abdomen is soft, nontender and nondistended. Bowel sounds are positive. SKIN: No acute rash. NEUROLOGIC: Exam is limited at the present time. IMPRESSION 1. Acute congestive heart failure - resolved. 2. Rapid atrial fibrillation. 3. Chronic obstructive pulmonary disease. 4. Mild bronchospasm - resolved. 5. Bilateral pleural effusions. 6. Coronary artery disease. PLAN: The patient appears very comfortable this morning. She is not short of breath at rest. She is much less dyspneic on exertion. She does state to feeling much better overall. On physical exam, her lungs are now clear. Oxygen saturation on nasal cannula is now 98%. I will continue the current nebulizer treatments and decrease the oral steroids this morning. The patient also remains on inhaled Pulmicort. Her cardiac issues are also resolving nicely. She remains on Lasix and digoxin. Clinical status of the patient is significantly improved. I will discuss the above with Dr. Woodruff. Cliff Vaz MD MTDD
--- NOTE | 2017-05-29 08:35 | PN ---
DATE: 05/27/2017 SUBJECTIVE: The patient was seen and examined at the bedside. She states she feels better. She is receiving inhalation treatments with Xopenex and added budesonide and she is on prednisone. PHYSICAL EXAMINATION: VITAL SIGNS: Temperature 97, pulse 60, respirations 20, pulse oximetry 97 on room air and blood pressure is 140/74. HEAD, EYES, EARS, NOSE AND THROAT: Atraumatic and normocephalic. NECK: Supple with no jugular vein distention. CHEST: Few scattered rhonchi. No wheezing. CARDIOVASCULAR: II/ systolic ejection murmur. Regular. PULMONARY: . GASTROINTESTINAL: Soft and nontender. No organomegaly. EXTREMITIES: Less edema. No cyanosis. SKIN: No acute skin rash. NEUROLOGIC: No focal deficits. LABORATORY DATA: Blood sugar is 180. No other new blood work. IMPRESSION: 1. Acute congestive heart failure, improving. 2. Rapid atrial fibrillation, improved. 3. Chronic obstructive pulmonary disease exacerbation. 4. Bronchospasm, resolving. 5. Bilateral pleural effusion. PLAN: The patient has improved clinically. She is less short of breath. We will continue with current administration of bronchodilator with added steroids and follow on as needed basis. Yovani Martinez MD
[2017-05-29] MEDS: Nystatin 100,000 Units/gm Topical Pow(15 gm) TOP SCH ×3 (10:27→17:53)
[2017-05-29] MEDS: methIMAzole 5 MG TAB PO SCH (10:29)
--- NOTE | 2017-05-29 12:35 | DS ---
HISTORY OF PRESENT ILLNESS: This is a 77-year-old female who had initially come into the hospital because of atrial fibrillation that was not well controlled. The patient had been placed on multiple medications including Cardizem, sotalol, digoxin to help control her medications. Her TSH was abnormal and she was hyperthyroid, although she had a history of hypothyroidism. She was also placed on methimazole. She was seen by endocrine and cardiology. The patient is currently comfortable. She is ambulating, she will need to continue her medications and get reevaluated as an outpatient with cardiology and a primary doctor. I have given her a month supply of methimazole and she will be reevaluated as an outpatient. She is currently comfortable. She has no complaints of any nausea, no vomiting, no headaches, or chills. PHYSICAL EXAMINATION: VITAL SIGNS: Temperature is 98.4, pulse is 65, blood pressure is 117/71, respirations 18, and O2 saturations are 98%. GENERAL: The patient is lying in bed, flat, comfortable. HEENT: No oral lesion. Anicteric sclerae. Moist mucosa. NECK: No JVD, adenopathy, or thyromegaly. CARDIOVASCULAR: S1 and S2, regular. No murmurs, rubs, or gallops. LUNGS: Clear to auscultation bilaterally. No wheeze, rales, or rhonchi. ABDOMEN: Bowel sounds are positive, soft, nontender and nondistended. EXTREMITIES: no cyanosis, clubbing or edema. ASSESSMENT: 1. Atrial fibrillation, controlled on Eliquis. 2. Chronic obstructive pulmonary disease, stable. 3. Hypotension, stable. 4. Diabetes type 2. 5. 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 6. Obesity with a BMI of 33. 7. DNR/DNI. PLAN: The patient is going to be continued on sotalol, Cardizem, Apixaban, digoxin, and methimazole. She is going to continue her home medications. CONDITION: Stable. ACTIVITIES: Increase as tolerated. FOLLOWUP: Follow up with primary care doctor in 1 to 2 weeks. Follow up with cardiology in 2-3 weeks. Tod Woodruff MD
[2017-05-29] MEDS: Digoxin 125 mcg (0.125 mg) Tab PO SCH (15:00)
[2017-05-29 15:23] VITALS: PULSE 47
--- NOTE | 2017-05-29 17:59 | PN ---
DATE: In room 327. SUBJECTIVE: This is a 77-year-old female with recent acute exacerbation of COPD currently switched over to oral steroid therapy, currently on 15 mg of prednisone as noted. Her glycemic fluctuations are improved at this time and have ranged from 153 to 181 mg today as noted. It was 361 at bedtime last night. The latest chemistry showed a BUN of 30, sodium 133, potassium 4.1, chloride 99, CO2 of 26, glucose 153 and creatinine 0.8. The repeat thyroid study showed a TSH of 4.87 with a T4 of 3.5 and a free T4 of 0.51. So at this time, we will actually discontinue the Tapazole given as 5 mg once daily as ordered and repeat the thyroid studies in a months' or two and restart the Tapazole as indicated thereof. This remarkable response of the patient to Tapazole with no biochemical evidence of subclinical hypothyroidism. We will obtain serial thyroid studies and adjusted dose regimen accordingly. In the meantime, we will continue the same basal and bolus insulin regimen as given with Humalog given as 8 units t.i.d. before meals and Levemir will be lower to 20 units subcu at bedtime daily to start tonight. We will continue the low-dose correction scale using Humalog insulin as ordered. We will follow and advise accordingly. Hamida Daniel MD
[2017-05-29 20:10] VITALS: RESP 16
[2017-05-29] MEDS ORDERED: Insulin Detemir 100 units/ml Vial (Levemir) SC SCH (22:00)
[2017-05-30] MEDS: Pantoprazole 40 mg EC Tab PO SCH (05:35)
[2017-05-30] MEDS: Insulin Lispro (humaLOG) LOW Coverage SC SCH ×3 (06:55→17:46)
[2017-05-30] MEDS: Insulin Lispro 1 UNITS/0.01 ML SC SCH ×3 (06:56→17:46)
[2017-05-30 07:11] LABS: MEAN CELL VOLUME 94.5 fl (80.0-105.0); MEAN CORPUSCULAR HEMOGLOBIN 31.9 pg (25.0-35.0); MEAN CORPUSCULAR HGB CONC 33.8 g/dl (31.0-37.0); RED CELL DISTRIBUTION WIDTH 12.8 % (11.5-14.5); WHITE BLOOD COUNT 20.4 10^3/ul (4.5-11.0)
[2017-05-30] MEDS: Levalbuterol 0.63 MG/3 ML Inhal Soln UD IH PRN (07:21)
[2017-05-30] MEDS: Budesonide 0.5 mg/2 ml Inhal Susp UD IH SCH ×2 (07:21→19:19)
[2017-05-30 08:00] VITALS: TEMP 97.8
[2017-05-30] MEDS: Nystatin 100,000 Units/gm Topical Pow(15 gm) TOP SCH ×2 (11:07→17:46)
[2017-05-30 11:15] VITALS: BP 132/79
[2017-05-30 12:03] VITALS: PULSE 64; O2SAT 97
--- NOTE | 2017-05-30 13:13 | PN ---
DATE: 05/30/2017 PULMONARY NOTE SUBJECTIVE: The patient appears very comfortable at rest. She is not short of breath. PHYSICAL EXAMINATION: VITAL SIGNS: Temperature is 98.1, pulse 67, respirations 16, blood pressure 120/79. Oxygen saturation on nasal cannula is 95%. HEENT: Normocephalic, atraumatic. No JVD. CARDIOVASCULAR: Systolic ejection murmur at the lower left sternal border. No S3 gallop. LUNGS: Clear bilaterally. EXTREMITIES: Less edema. No cyanosis, no clubbing. Calves are nontender to palpation. GI: Abdomen is soft, nontender, and nondistended. Bowel sounds are positive. SKIN: No acute rash. NEUROLOGIC: Limited at the present time. IMPRESSION: 1. Acute congestive heart failure - resolved. 2. Rapid atrial fibrillation - resolved. 3. Chronic obstructive pulmonary disease. 4. Mild bronchospasm - resolved. 5. Bilateral pleural effusions - resolved. 6. Coronary artery disease. PLAN: The patient appears very comfortable this morning. She is not short of breath at rest. She states that she is feeling much, much better overall. On physical exam, her lungs remain clear. In addition, the oxygen saturation on room air is now 95%. I will continue the current nebulizer treatments and low-dose oral steroids (decreased yesterday) for now. The patient also remains on Lasix and digoxin. Clinical status of the patient is significantly improved - compared to the initial presentation. The patient is for discharge in the near future. I will discuss the above with Dr. Woodruff. Cliff Vaz MD MTDD
[2017-05-30] MEDS: Digoxin 125 mcg (0.125 mg) Tab PO SCH (15:19)
--- NOTE | 2017-05-30 19:10 | PN ---
ENDOCRINOLOGY FOLLOWUP NOTE DATE: LOCATION: In room 327. SUBJECTIVE: This is a 77-year-old female with recent acute exacerbation of COPD and supervening hyperglycemic accelerations and is now being followed closely for metabolic management. Her glycemic levels are fluctuating, but improved and the latest glucose levels have ranged from 177 to 178 mg/dL. It was 232 to 253 last night at bedtime as noted. The latest thyroid study showed T4 of 3.5 with a TSH of 4.87 and free T4 of 0.51. So, at this time, we will continue the same basal and bolus insulin regimen to allow for dose equilibration and keep her on the Humalog given as 8 units subcutaneously t.i.d. before meals as ordered. We will continue the Levemir given as 20 units subcutaneously at bedtime daily as given. We will titrate incremental as indicated to optimize metabolic control. We will also continue the serial thyroid testing and we have actually discontinued her Tapazole medications at this time as she has now developed subclinical hypothyroidism as part of the clinical and biochemical recovery thereof. Hamida Daniel MD
== END 2017-05-30 19:00 | disposition home or self-care (01) | DRG 556 ==
LOC: TRCU 16:34
PROVIDERS: ADMIT Internal Medicine Nephrology; ATTEND Internal Medicine Nephrology
PROC: 3E0F7GC Introduction of Other Therapeutic Substance into Respiratory Tract, Via Natural or Artificial Opening (ICD-10-PCS; 2017-05-22)
PROC: F07Z9FZ Gait Training/Functional Ambulation Treatment using Assistive, Adaptive, Supportive or Protective Equipment (ICD-10-PCS; principal; 2017-05-23)
PROC: F08Z4FZ Home Management Treatment using Assistive, Adaptive, Supportive or Protective Equipment (ICD-10-PCS; 2017-05-23)
DX: R26.2 Difficulty in walking, not elsewhere classified (principal); I48.2 Chronic atrial fibrillation; J44.1 Chronic obstructive pulmonary disease with (acute) exacerbation; E11.65 Type 2 diabetes mellitus with hyperglycemia; I11.0 Hypertensive heart disease with heart failure; I50.9 Heart failure, unspecified; E66.01 Morbid (severe) obesity due to excess calories; E05.90 Thyrotoxicosis, unspecified without thyrotoxic crisis or storm; I25.10 Atherosclerotic heart disease of native coronary artery without angina pectoris; E03.9 Hypothyroidism, unspecified; Z66 Do not resuscitate; Z68.33 Body mass index [BMI] 33.0-33.9, adult; Z79.4 Long term (current) use of insulin; Z79.01 Long term (current) use of anticoagulants

== ENCOUNTER 2017-08-09 03:19 | Inpatient (IN) | payer MEDICARE ==
[2017-08-09 03:29] VITALS: BMI 31.4
[2017-08-09] MEDS ORDERED: diltiaZEM IVPB 100mg in NS 100 ML IV PRN (03:49)
[2017-08-09] MEDS ORDERED: Sodium Chloride 0.9% 1,000 ML IV SCH ×2 (04:00→13:30)
[2017-08-09 04:13] LABS: INR 1.21 (0.93-1.08); PARTIAL THROMBOPLASTIN TIME 44.7 Seconds (25.1-36.5); PROTHROMBIN TIME 13.8 SECONDS (9.4-12.5)
[2017-08-09 04:21] LABS: ALB/GLOB RATIO 1.4 (1.1-1.8); ALT/SGPT 132 U/L (7-56); AST/SGOT 147 U/L (14-36); BLOOD UREA NITROGEN 18 mg/dL (7-21); CALCIUM 9.3 mg/dL (8.4-10.5); GFR AFRICAN-AMERICAN > 60; GFR NON-AFRICAN AMERICAN 53
[2017-08-09] MEDS ORDERED: Insulin Regular 1 UNITS/0.01 ML ML IVP STA (04:21)
[2017-08-09] MEDS ORDERED: Insulin Regular 1 UNITS/0.01 ML ML SC STA (04:22)
[2017-08-09 04:23] LABS: TROPONIN I 0.02 ng/mL
[2017-08-09 04:30] LABS: MEAN CELL VOLUME 96.3 fl (80.0-105.0); MEAN CORPUSCULAR HGB CONC 34.3 g/dl (31.0-37.0); MEAN PLATELET VOLUME 12.8 fl (7.0-11.0); RBC 4.85 10^6/uL (3.5-6.1); RED CELL DISTRIBUTION WIDTH 13.5 % (11.5-14.5); WHITE BLOOD COUNT 8.9 10^3/ul (4.5-11.0)
[2017-08-09] MEDS ORDERED: Sodium Chloride 0.9% 500 ML IV STA (04:38)
--- NOTE | 2017-08-09 04:56 | ED PDOC ---
Arrival/HPI - General Chief Complaint: GI Problem Time Seen by Provider: 08/09/17 03:43 Historian: Patient - Critical Care Critical Care Minutes: 45 minutes - History of Present Illness Narrative History of Present Illness (Text): 08/09/17 04:35 A 77 year old female, whose past medical history includes COPD, hypertension, hyperlipidemia, atrial fibrillation, and diabetes mellitus, presents to the emergency department complaining of palpitation and diarrhea tonight. Patient denies chest pain, shortness of breath, abdominal pain, fever, chills ,or any other complaints. No PMD Time/Duration: Other (tonight) Symptom Onset: Sudden Symptom Course: Unchanged Past Medical History - Provider Review Nursing Documentation Reviewed: Yes - Infectious Disease Hx of Infectious Diseases: None - Tetanus Immunization Tetanus Immunization: Unknown - Cardiac Hx Cardiac Disorders: Yes Hx Atrial Fibrillation: Yes Hx Hypertension: Yes Other/Comment: "silent heart" - Pulmonary Hx Chronic Obstructive Pulmonary Disease (COPD): Yes - Neurological Hx Transient Ischemic Attacks (TIA): Yes - HEENT Hx HEENT Disorder: (allergic rhinitis) - Endocrine/Metabolic Hx Diabetes Mellitus Type 1: Yes - Hematological/Oncological Hx Cancer: (Right breast lump removal no chemo) - Musculoskeletal/Rheumatological Hx Falls: No - Gastrointestinal Hx Gastrointestinal Disorders: (ibs) - Genitourinary/Gynecological Hx Incontinence: Yes - Psychiatric Hx Depression: Yes Hx Substance Use: No - Surgical History Hx Appendectomy: Yes Hx Cardiac Catheterization: Yes (06/27/2012) Hx Cholecystectomy: Yes Hx Coronary Stent: Yes (2009) - Anesthesia Hx Anesthesia Reactions: No Hx Malignant Hyperthermia: No - Suicidal Assessment Feels Threatened In Home Enviroment: No Family/Social History - Physician Review Nursing Documentation Reviewed: Yes Family/Social History: No Known Family HX Smoking Status: Never Smoked Hx Alcohol Use: No Hx Substance Use: No Allergies/Home Meds Allergies/Adverse Reactions: Allergies Penicillins Allergy (Verified 08/09/17 13:24) RASH shrimp Allergy (Verified 08/09/17 13:24) RASH clarithromycin Adverse Reaction (Verified 08/09/17 13:24) RASH Review of Systems - Physician Review All systems were reviewed & negative as marked: Yes - Review of Systems Constitutional: absent: Fevers, Night Sweats Respiratory: absent: SOB Cardiovascular: Palpitations. absent: Chest Pain Gastrointestinal: Diarrhea. absent: Abdominal Pain Physical Exam Vital Signs Reviewed: Yes Vital Signs Temp Pulse Resp BP Pulse Ox 08/09/17 05:32 98 H 18 111/49 L 95 08/09/17 05:18 140 H 125/65 08/09/17 05:16 145 H 18 125/65 95 08/09/17 03:50 155 H 137/76 08/09/17 03:34 98.0 F 110 H 18 137/76 96 Temperature: Afebrile Blood Pressure: Normal Pulse: Tachycardic Respiratory Rate: Normal Appearance: Positive for: Well-Appearing Pain Distress: None Mental Status: Positive for: Alert and Oriented X 3 Finger Stick Blood Glucose: 568 - Systems Exam Ears: Present: Normal Mouth: Present: Moist Mucous Membranes Pharnyx: Present: Normal Nose (External): Present: Atraumatic Nose (Internal): Present: Normal Inspection Neck: Present: Normal Range of Motion Respiratory/Chest: Present: Clear to Auscultation (bilaterally), Good Air Exchange. No: Respiratory Distress, Accessory Muscle Use Cardiovascular: Present: Tachycardic Abdomen: Present: Normal Bowel Sounds. No: Tenderness, Distention, Peritoneal Signs Upper Extremity: Present: Normal Inspection. No: Cyanosis, Edema Lower Extremity: Present: Normal Inspection. No: Edema Medical Decision Making ED Course and Treatment: 08/09/17 04:37 Impression: 77 year old female with palpitations and diarrhea. Physical exam shows patient is tachycardic; neck supple, moist mucous membranes, ENT normal. Plan: -- EKG -- Chest X-ray -- Labs -- Urinalysis -- Cardizem -- Humulin -- IV Fluids -- Venous Blood Gas -- Reassess and disposition Prior Visits: Notes and results from previous visits were reviewed. Patient was last seen in the emergency department on 05/17/2017 for shortness of breath. Patient was admitted. Progress Notes: 08/09/17 06:[address] Torres to evaluate patient here in ER and state patient is accepted to cardiac care unit for further monitoring given patient's underlying rapid atrial fibrillation and uncontrolled diabetes. Case discussed with Dr. Villagomez , whom patient is placed under service. - Lab Interpretations Lab Results: 08/09/17 03:50 08/09/17 03:50 Lab Results 08/09/17 05:56: pO2 52, VBG pH 7.35, VBG pCO2 34.0 L, VBG HCO3 18.8 L, VBG Total CO2 19.8 L, VBG O2 Sat (Calc) 90.9 H, VBG Base Excess -6.0 L, VBG Potassium 4.1, Glucose 425 H* D, Lactate 4.1 H*, FiO2 21.0, Sodium 132.0, Chloride 99.0, Venous Blood Potassium 4.1 08/09/17 03:50: WBC 8.9 D, RBC 4.85, Hgb 16.0, Hct 46.7, MCV 96.3, MCH 33.0, MCHC 34.3, RDW 13.5, Plt Count 227, MPV 12.8 H 08/09/17 03:50: Sodium 133, Potassium 4.5, Chloride 98, Carbon Dioxide 18 L, Anion Gap 23 H, BUN 18, Creatinine 1.0, Est GFR ( Amer) > 60, Est GFR ( Non-Af Amer) 53, Random Glucose 568 H* D, Calcium 9.3, Total Bilirubin 0.5, AST 147 H D, ALT 132 H, Alkaline Phosphatase 69, Lactate Dehydrogenase 768 H, Total Creatine Kinase 59, Troponin I 0.02, Total Protein 6.9, Albumin 4.0, Globulin 2.9, Albumin/Globulin Ratio 1.4 08/09/17 03:50: PT 13.8 H, INR 1.21 H, APTT 44.7 H I have reviewed the lab results: Yes - RAD Interpretation Radiology Orders: 08/09/17 03:46 CHEST PORTABLE [RAD] Stat - Medication Orders Current Medication Orders: Apixaban (Eliquis) 5 mg PO BID IMRNA PRN Reason: Protocol Last Admin: 08/09/17 18:25 Dose: 5 mg Aspirin (Ecotrin) 81 mg PO DAILY MIRNA Last Admin: 08/09/17 09:11 Dose: 81 mg Atorvastatin Calcium (Lipitor) 40 mg PO HS MIRNA Famotidine (Pepcid) 20 mg PO HS MIRNA diltiaZEM IVPB 100mg in NS (Cardizem 100mg In Ns) 100 mls @ 10 mls/hr IV .Q10H PRN; Protocol; 10 MG/HR PRN Reason: TITRATE PER MD ORDER Last Admin: 08/09/17 08:34 Dose: 10 mg/hr, 10 mls/hr eMAR Start Stop Document 08/09/17 08:34 LC (Rec: 08/09/17 08:34 [id number]) Intravenous Solution Start Date 08/09/17 Start Time 08:34 MAR Pulse Rate Document 08/09/17 08:34 LC (Rec: 08/09/17 08:34 [id number]) Pulse Rate Pulse Rate (60-90) 144 Titration Intervention Document 08/09/17 08:34 LC (Rec: 08/09/17 08:34 [id number]) Titration Intake Waste Amount 0 Container Volume 100 Titration Dosing Titration Dose 10 IV Rate 10 Intake/Decrease Started Ceftriaxone Sodium (Rocephin 1 Gram Ivpb) 1 gm in 100 mls @ 100 mls/hr IVPB DAILY [facility] PRN Reason: Protocol Last Admin: 08/09/17 10:34 Dose: 100 mls/hr eMAR Start Stop Document 08/09/17 10:34 LC (Rec: 08/09/17 10:34 [id number]) Intravenous Solution Start Date 08/09/17 Start Time 10:34 Insulin Detemir (Levemir) 20 unit SC HS [facility] Last Admin: 08/09/17 11:20 Dose: 20 unit Subcutaneous Administrations Document 08/09/17 11:20 (Rec: 08/09/17 11:20 [id number]) Injection Site MAR Injection Site Left Arm Charges for Administration # of Subcutaneous Administrations 1 Insulin Human Regular (Humulin R Low) 0 units SC ACHS [facility] PRN Reason: Protocol Last Admin: 08/09/17 18:20 Dose: 3 units MAR Blood Glucose Document 08/09/17 18:20 LC (Rec: 08/09/17 18:20 [id number]) Blood Glucose Finger Stick Blood Glucose (70-120) 254 Subcutaneous Administrations Document 08/09/17 18:20 LC (Rec: 08/09/17 18:20 [id number]) Injection Site MAR Injection Site Right Arm Charges for Administration # of Subcutaneous Administrations 1 Methimazole (Tapazole) 5 mg PO DAILY [facility] Last Admin: 08/09/17 09:28 Dose: 5 mg Propranolol HCl (Inderal) 20 mg PO TID [facility] Last Admin: 08/09/17 18:21 Dose: 20 mg MAR Pulse and Blood Pressure Document 08/09/17 18:21 (Rec: 08/09/17 18:21 [id number]) Pulse Pulse Rate (60-90) 117 Vitamin A (Vitamin A & D Oint Ud Foilpak) 1 ea TOP BID PRN PRN Reason: Dry skin Discontinued Medications Apixaban (Eliquis) 5 mg PO BID MIRNA PRN Reason: Protocol Digoxin (Lanoxin) 0.25 mg IVP ONCE ONE Stop: 08/09/17 08:30 Last Admin: 08/09/17 09:15 Dose: 0.25 mg MAR Apical Pulse Rate Document 08/09/17 09:15 (Rec: 08/09/17 09:15 [id number] Apical Pulse Rate Apical Pulse Rate (60-90 beats/min) 144 IVP Administration Document 08/09/17 09:15 (Rec: 08/09/17 09:15 [id number]) Charges for Administration # of IVP Administrations 1 Diltiazem HCl (Cardizem) 20 mg IVP ONCE ONE Stop: 08/09/17 03:49 Last Admin: 08/09/17 03:50 Dose: 20 mg IVP Administration Document 08/09/17 03:50 RG (Rec: 08/09/17 04:12 [id number]) Charges for Administration # of IVP Administrations 1 MAR Pulse and Blood Pressure Document 08/09/17 03:50 RG (Rec: 08/09/17 04:12 RG [id number]) Pulse Pulse Rate (60-90) 155 Blood Pressure Blood Pressure (100/60-150/90) 137/76 Diltiazem HCl (Cardizem) 20 mg IVP ONCE ONE Stop: 08/09/17 05:17 Last Admin: 08/09/17 05:18 Dose: 20 mg IVP Administration Document 08/09/17 05:18 RG (Rec: 08/09/17 05:43 RG [id number]) Charges for Administration # of IVP Administrations 1 MAR Pulse and Blood Pressure Document 08/09/17 05:18 RG (Rec: 08/09/17 05:43 RG [id number]) Pulse Pulse Rate (60-90) 140 Blood Pressure Blood Pressure (100/60-150/90) 125/65 Furosemide (Lasix) 40 mg PO DAILY [facility]IR[facility] diltiaZEM IVPB 100mg in NS (Cardizem 100mg In Ns) 100 mls @ 5 mls/hr IV .Q20H PRN; Protocol; 5 MG/HR PRN Reason: TITRATE PER MD ORDER Last Admin: 08/09/17 03:41 Dose: 5 mls/hr eMAR Start Stop Document 08/09/17 03:41 RG (Rec: 08/09/17 04:13 RG [id number]) Intravenous Solution Start Date 08/09/17 Start Time 03:41 Sodium Chloride (Sodium Chloride 0.9%) 1,000 mls @ 100 mls/hr IV .Q10H MIRNA Last Admin: 08/09/17 03:42 Dose: 100 mls/hr eMAR Start Stop Document 08/09/17 03:42 RG (Rec: 08/09/17 04:14 RG [id number]) Intravenous Solution Start Date 08/09/17 Start Time 03:42 End Date 08/09/17 End time 04:33 Total Infusion Time 51 Sodium Chloride (Sodium Chloride 0.9%) 500 mls @ 500 mls/hr IV .Q1H STA Stop: 08/09/17 05:37 Last Admin: 08/09/17 04:38 Dose: 500 mls/hr eMAR Start Stop Document 08/09/17 04:38 RG (Rec: 08/09/17 04:44 RG [id number]) Intravenous Solution Start Date 08/09/17 Start Time 04:38 Insulin Human Regular 100 (units/ Sodium Chloride) 100 mls @ 5 mls/hr IV .Q20H PRN; Protocol; 5 UNITS/HR PRN Reason: TITRATE PER MD ORDER Last Titration: 08/09/17 10:16 Dose: 2 units/hr, 2 mls/hr Titration Intervention Document 08/09/17 10:16 LC (Rec: 08/09/17 10:16 LC [id number]) Titration Intake Titration Intake 5 Cumulative Intake 5 Cumulative Intake (Rx) 5 Waste Amount 0 Container Volume 95 Titration Dosing Titration Dose 2 IV Rate 2 Intake/Decrease Decreased Cumulative Dose 5 Sodium Chloride (Sodium Chloride 0.9%) 1,000 mls @ 999 mls/hr IV .Q1H1M STA Stop: 08/09/17 08:07 Last Admin: 08/09/17 08:33 Dose: 999 mls/hr eMAR Start Stop Document 08/09/17 08:33 LC (Rec: 08/09/17 08:34 LC [id number]) Intravenous Solution Start Date 08/09/17 Start Time 08:34 Potassium Chloride 20 meq/ (Sodium Chloride) 1,010 mls @ 125 mls/hr IV .Q8H5M [facility] Last Admin: 08/09/17 08:56 Dose: 125 mls/hr eMAR Start Stop Document 08/09/17 08:56 LC (Rec: 08/09/17 08:57 LC [id number]) Intravenous Solution Start Date 08/09/17 Start Time 08:57 Sodium Chloride (Sodium Chloride 0.9%) 1,000 mls @ 100 mls/hr IV .Q10H [facility] Last Admin: 08/09/17 18:24 Dose: 100 mls/hr eMAR Start Stop Document 08/09/17 18:24 LC (Rec: 08/09/17 18:25 LC [id number]) Intravenous Solution Start Date 08/09/17 Start Time 14:00 Insulin Human Regular (Humulin R) 10 units IVP STAT STA Stop: 08/09/17 04:22 Last Admin: 08/09/17 04:36 Dose: 10 units MAR Blood Glucose Document 08/09/17 04:36 RG (Rec: 08/09/17 04:39 RG [id number]) Blood Glucose Finger Stick Blood Glucose (70-120) 568 IVP Administration Document 08/09/17 04:36 RG (Rec: 08/09/17 04:39 RG [id number]) Charges for Administration # of IVP Administrations 1 Insulin Human Regular (Humulin R) 10 units SC STAT STA Stop: 08/09/17 04:23 Last Admin: 08/09/17 04:40 Dose: 10 units MAR Blood Glucose Document 08/09/17 04:40 RG (Rec: 08/09/17 04:41 RG [id number]) Blood Glucose Finger Stick Blood Glucose (70-120) 568 Subcutaneous Administrations Document 08/09/17 04:40 RG (Rec: 08/09/17 04:41 RG [id number]) Injection Site MAR Injection Site Right Arm Charges for Administration # of Subcutaneous Administrations 1 Pneumococcal Polyvalent Vaccine (Pneumovax 23 Vaccine) 0.5 ml IM .ONCE ONE Stop: 08/09/17 14:06 Last Admin: 08/09/17 18:30 Dose: MAR Immunization Data Document 08/09/17 18:30 LC (Rec: 08/09/17 18:30 LC [id number]) Immunization Data Vaccine Information Sheet Given No Immunization Registry Document 08/09/17 18:30 LC (Rec: 08/09/17 18:30 LC [id number]) Immunization Registry Consent Date 05/17/17 Propranolol HCl (Propranolol Inj) 1 mg IV STAT STA Stop: 08/09/17 09:52 Last Admin: 08/09/17 10:34 Dose: 1 mg eMAR Start Stop Document 08/09/17 10:34 LC (Rec: 08/09/17 10:34 LC [id number]) Intravenous Solution Start Date 08/09/17 Start Time 10:34 MAR Pulse and Blood Pressure Document 08/09/17 10:34 LC (Rec: 08/09/17 10:34 LC [id number]) Pulse Pulse Rate (60-90) 145 - Scribe Statement The provider has reviewed the documentation as recorded by the Elvin Hart Provider Scribe Attestation: All medical record entries made by the Angieibesthela were at my direction and personally dictated by me. I have reviewed the chart and agree that the record accurately reflects my personal performance of the history, physical exam, medical decision making, and the department course for this patient. I have also personally directed, reviewed, and agree with the discharge instructions and disposition. Disposition/Present on Arrival - Present on Arrival Any Indicators Present on Arrival: No History of DVT/PE: No History of Uncontrolled Diabetes: Yes Urinary Catheter: No History of Decub. Ulcer: No History Surgical Site Infection Following: None - Disposition Have Diagnosis and Disposition been Completed?: Yes Diagnosis: Atrial fibrillation, Uncontrolled diabetes mellitus Disposition: HOSPITALIZED Disposition Time: 06:01 Patient Plan: Admission Patient Problems: Current Active Problems Problem Status Onset Atrial fibrillation Acute Uncontrolled diabetes mellitus Acute Condition: STABLE
[2017-08-09 06:11] LABS: VENOUS BLOOD GAS PO2 52 mm/Hg (30-55); VENOUS BLOOD PH 7.35 (7.32-7.43)
[2017-08-09 06:42] LABS: URINE BILIRUBIN NEGATIVE (NEGATIVE); URINE BLOOD TRACE-INTACT (NEGATIVE); URINE GLUCOSE (UA) >=1000 mg/dL (NEGATIVE); URINE LEUKOCYTE ESTERASE SMALL Leu/uL (NEGATIVE); URINE NITRATE NEGATIVE (NEGATIVE); URINE PROTEIN TRACE mg/dL (<30 mg/dL); URINE UROBILINOGEN 0.2 E.U./dL (<1 E.U./dL)
[2017-08-09 06:46] LABS: URINE APPEARANCE CLOUDY (CLEAR); URINE COLOR YELLOW (YELLOW)
[2017-08-09 06:50] LABS: URINE BACTERIA MANY (NEG); URINE EPITHELIAL CELLS 0 - 2 /hpf (0-5); URINE RBC 0 - 2 /hpf (0-2); URINE WBC TNTC /hpf (0-6)
[2017-08-09] MEDS ORDERED: Insulin Regular 100 UNITS in Sodium Chloride 0.9% 99 ML IV PRN (07:05)
[2017-08-09] MEDS ORDERED: Sodium Chloride 0.9% 1,000 ML IV STA (07:07)
--- NOTE | 2017-08-09 07:25 | CP.PCM.CON ---
History of Present Illness - History of Present Illness History of Present Illness: History of Present Illness: The patient is a 77 year old woman with a history of CAD (s/p PCI's), thyroid disease, HTN, IDDM, HL, COPD, paroxysmal A-fib (on Eliquis) and GERD, who presents with 1 day of generalized fatigue, palpitations and watery diarrhea ( at least 10 episodes). She also admits to not taking any Insulin for the past day. She denies any abdominal pain, dysuria, chest pain, orthopnea, recent travel, leg swelling, fevers, chills, cough or vomiting. In the ED, despite being started on Diltiazem drip and receiving an additional two more doses of Diltiazem 20mg IVx1, her atrial fibrillation with RVR persisted (with HR as high as 160's). Her ED labs are also concerning for possible early DKA. As a result, an ICU evaluation was requested by the ED physician. Home Medications: Please refer to MAR Allergies: PCNs, Shrimp, Clarithromycin Past Medical History: Per HPI Past Surgical History: Per HPI Family History: Non-contributory Social History: Denies ever smoking; However, does report significant second-hand smoke exposure ; Denies ETOH or illicit drug use Review of Systems: 14 bodily systems reviewed and found to be negative except per HPI Physical Exam: GEN: NAD; pleasant elderly lady HEENT: dry MMM; Supple neck RESP: occasional faint scattered wheezes; otherwise clear CARD: irregularly irregular; No JVD GI: non-tender; non-distended; soft EXT: No clubbing, edema or cyanosis NEURO: grossly normal neuro exam Past Patient History - Infectious Disease Hx of Infectious Diseases: None - Tetanus Immunizations Tetanus Immunization: Unknown - Past Social History Smoking Status: Never Smoked - CARDIAC Hx Cardiac Disorders: Yes Hx Atrial Fibrillation: Yes Hx Hypertension: Yes Other/Comment: "silent heart" - PULMONARY Hx Chronic Obstructive Pulmonary Disease (COPD): Yes - NEUROLOGICAL Hx Transient Ischemic Attacks (TIA): Yes - HEENT Hx HEENT Problems: (allergic rhinitis) - ENDOCRINE/METABOLIC Hx Diabetes Mellitus Type 1: Yes - HEMATOLOGICAL/ONCOLOGICAL Hx Cancer: (Right breast lump removal no chemo) - MUSCULOSKELETAL/RHEUMATOLOGICAL Hx Falls: No - GASTROINTESTINAL Hx Gastrointestinal Disorders: (ibs) - GENITOURINARY/GYNECOLOGICAL Hx Incontinence: Yes - PSYCHIATRIC Hx Depression: Yes Hx Substance Use: No - SURGICAL HISTORY Hx Appendectomy: Yes Hx Cardiac Catheterization: Yes (06/27/2012) Hx Cholecystectomy: Yes Hx Coronary Stent: Yes (2009) - ANESTHESIA Hx Anesthesia Reactions: No Hx Malignant Hyperthermia: No Meds Allergies/Adverse Reactions: Allergies Allergy/AdvReac Type Severity Reaction Status Date / Time Penicillins Allergy RASH Verified 08/09/17 06:21 shrimp Allergy RASH Verified 08/09/17 06:21 clarithromycin AdvReac RASH Verified 08/09/17 06:21 - Medications Medications: Current Medications Aspirin (Ecotrin) 81 mg PO DAILY [facility] Atorvastatin Calcium (Lipitor) 40 mg PO HS MIRNA Digoxin (Digoxin) 0.125 mg PO 1400 MIRNA Insulin Human Regular 100 (units/ Sodium Chloride) 100 mls @ 5 mls/hr IV .Q20H PRN; Protocol; 5 UNITS/HR PRN Reason: TITRATE PER MD ORDER Sodium Chloride (Sodium Chloride 0.9%) 1,000 mls @ 999 mls/hr IV .Q1H1M STA Stop: 08/09/17 08:07 Potassium Chloride 20 meq/ (Sodium Chloride) 1,010 mls @ 125 mls/hr IV .Q8H5M [facility] diltiaZEM IVPB 100mg in NS (Cardizem 100mg In Ns) 100 mls @ 10 mls/hr IV .Q10H PRN; Protocol; 10 MG/HR PRN Reason: TITRATE PER MD ORDER Methimazole (Tapazole) 5 mg PO DAILY [facility] Results - Vital Signs Recent Vital Signs: Last Vital Signs Temp 98.0 F 08/09/17 03:34 Pulse 98 H 08/09/17 05:32 Resp 18 08/09/17 05:32 BP 111/49 L 08/09/17 05:32 Pulse Ox 95 08/09/17 05:32 - Labs Result Diagrams: 08/09/17 03:50 08/09/17 03:50 Labs: Laboratory Results - last 24 hr 08/09/17 06:00 Urine Color Yellow Urine Appearance Cloudy Urine pH 6.0 Ur Specific [place] 1.015 Urine Protein Trace H Urine Glucose (UA) >=1000 Urine Ketones Trace H Urine Blood Trace-intact H Urine Nitrate Negative Urine Bilirubin Negative Urine Urobilinogen 0.2 Ur Leukocyte Esterase Small H Urine RBC 0 - 2 Urine WBC Tntc Ur Epithelial Cells 0 - 2 Urine Bacteria Many Assessment & Plan - Assessment and Plan (Free Text) Plan: Assessment and Plan: The patient is a 77 year old woman with a history of CAD (s/p PCI's), thyroid disease, HTN, IDDM, HL, COPD, paroxysmal A-fib (on Eliquis) and GERD, now being admitted to the ICU due to mild/early DKA, A-fib with RVR, acute gastroenteritis , transaminitis and lactic acidosis. 1. Diabetic Ketoacidosis (without coma): -likely due to not taking Insulin for the prior 24-hours -labs show anion gap of 17 and trace ketones on UA -will start Insulin drip at algorithm 1 -keep NPO and on IVF's with supplemental potassium -repeat BMP ordered for 10am this morning -switch IVF's to D51/2NS once accu-checks decrease to < 200 -cultures and procalcitonin ordered to rule out sepsis as potential alternative cause of increased gap metabolic acidosis 2. Atrial Fibrillation with Rapid Ventricular Response: -cardiology consult placed -check thyroid function tests -will continue for now with Diltazem drip at 10mg/hr -will also continue home meds of Digoxin and Eliquis 3. Acute Gastroenteritis: -likely viral etiology -rehydrate with aggressive IV fluids -check stool studies 4. Transaminitis: -ddx: medication sidef effect vs acute hepatobiliary pathology -patient denies abdominal pain and isn't tender on exam -regardless, will order abdominal U/S to further evaluate 5. COPD: -no acute management required -continue with PRN O2 via nasal canula and PRN Duo-nebs 6. CAD: -no acute management required -continue home maintenance meds 7. HTN: -will hold home meds for now given Diltiazem drip 8. Thyroid Disease: -continue home med of Methimazole -check TFT's GI PPx: Protonix DVT PPx: patient on Eliquis
[2017-08-09] MEDS ORDERED: Insulin Lispro 1 UNITS/0.01 ML SC SCH (07:30)
[2017-08-09] MEDS ORDERED: Digoxin 500 mcg/2ml (0.5 mg/2ml) Inj IVP ONE (08:29)
[2017-08-09] MEDS: diltiaZEM IVPB 100mg in NS 100 ML IV PRN ×2 (08:34→20:22)
--- NOTE | 2017-08-09 09:00 | CP.CCUPN ---
<Noemi Parnell - Last Filed: 08/09/17 11:47> CCU Subjective - Physician Review Subjective (Free Text): 08/09/17 10:50 Patient is 77 y/o with PMHx of CAD (s/p PCI's), thyroid disease, HTN, IDDM, HL, COPD, paroxysmal A-fib (on Eliquis) and GERD, now being admitted to the ICU due to mild/early DKA, A-fib with RVR, acute gastroenteritis, transaminitis and lactic acidosis. Patient is stable since admission to ICU. Denies abdominal pain , nausea, vomiting or diarrhea. No fever or chill. No chest pain or sob. Critical Care Time Spent (in minutes): 45 CCU Objective - Vital Signs / Intake & Output Vital Signs (Last 4 hours): Vital Signs Pulse Resp BP Pulse Ox 08/09/17 07:20 128 H 14 122/80 95 Intake and Output (Last 8hrs): Intake & Output 08/08/17 08/09/17 08/09/17 22:59 06:59 14:59 Weight 180 lb 1.6 oz - Physical Exam Head: Positive for: Atraumatic, Normocephalic Pupils: Positive for: PERRL Extroacular Muscles: Positive for: EOMI Conjunctiva: Positive for: Normal Ears: Positive for: Normal Mouth: Positive for: Moist Mucous Membranes Pharnyx: Positive for: Normal Nose (External): Positive for: Atraumatic Nose (Internal): Positive for: Normal Inspection Neck: Positive for: Normal Range of Motion Respiratory/Chest: Positive for: Clear to Auscultation (bilaterally), Good Air Exchange. Negative for: Respiratory Distress, Accessory Muscle Use, Rales, Retracting, Rhonchi, Tachypneic, Tender to Palpation Cardiovascular: Positive for: Normal S1, S2, Irregular Rhythm, Tachycardic. Negative for: Regular Rate and Rhythm, Murmurs, Bradycardic, Rub, Gallop Abdomen: Positive for: Normal Bowel Sounds. Negative for: Tenderness, Distention, Peritoneal Signs Upper Extremity: Positive for: Normal Inspection. Negative for: Cyanosis, Edema Lower Extremity: Positive for: Normal Inspection. Negative for: Edema Neurological: Positive for: GCS=15, CN II-XII Intact, Speech Normal Skin: Positive for: Warm, Dry, Rashes, Normal Color Psychiatric: Positive for: Alert, Oriented x 3, Normal Insight, Normal Concentration - Medications Active Medications: Active Medications Generic Name Dose Route Start Last Admin Trade Name Freq PRN Reason Stop Dose Admin Apixaban 5 mg 08/09/17 10:00 Eliquis PO BID [facility] Protocol Aspirin 81 mg 08/09/17 10:00 Ecotrin PO DAILY [facility] Atorvastatin Calcium 40 mg 08/09/17 22:00 Lipitor PO HS [facility] Digoxin 0.125 mg 08/09/17 14:00 Digoxin PO 1400 [facility] Insulin Human Regular 100 100 mls @ 5 mls/hr 08/09/17 07:05 units/ Sodium Chloride IV .Q20H PRN TITRATE PER MD ORDER Protocol 5 UNITS/HR Potassium Chloride 20 meq/ 1,010 mls @ 125 mls/hr 08/09/17 07:15 Sodium Chloride IV .Q8H5M [facility] diltiaZEM IVPB 100mg in NS 100 mls @ 10 mls/hr 08/09/17 07:13 08/09/17 08:34 Cardizem 100mg In Ns IV 10 mg/hr .Q10H PRN 10 mls/hr TITRATE PER MD ORDER Administration Protocol 10 MG/HR Methimazole 5 mg 08/09/17 10:00 Tapazole PO DAILY [facility] - Patient Studies Lab Studies: Lab Studies 08/09/17 08/09/17 Range/Units 08:18 06:00 POC Glucose (mg/dL) 306 H (65-110) mg/dL Urine Color Yellow (YELLOW) Urine Appearance Cloudy (CLEAR) Urine pH 6.0 (4.7-8.0) Ur Specific [place] 1.015 (1.005-1.035) Urine Protein Trace H (<30 mg/dL) mg/dL Urine Glucose (UA) >=1000 (NEGATIVE) mg/dL Urine Ketones Trace H (NEGATIVE) mg/dL Urine Blood Trace-intact H (NEGATIVE) Urine Nitrate Negative (NEGATIVE) Urine Bilirubin Negative (NEGATIVE) Urine Urobilinogen 0.2 (<1 E.U./dL) E.U./dL Ur Leukocyte Esterase Small H (NEGATIVE) Rk/uL Urine RBC 0 - 2 (0-2) /hpf Urine WBC Tntc (0-6) /hpf Ur Epithelial Cells 0 - 2 (0-5) /hpf Urine Bacteria Many (NEG) Laboratory Results - last 24 hr 08/09/17 08/09/17 06:00 08:18 POC Glucose (mg/dL) 306 H Urine Color Yellow Urine Appearance Cloudy Urine pH 6.0 Ur Specific [place] 1.015 Urine Protein Trace H Urine Glucose (UA) >=1000 Urine Ketones Trace H Urine Blood Trace-intact H Urine Nitrate Negative Urine Bilirubin Negative Urine Urobilinogen 0.2 Ur Leukocyte Esterase Small H Urine RBC 0 - 2 Urine WBC Tntc Ur Epithelial Cells 0 - 2 Urine Bacteria Many Fingerstick Blood Sugar Results: 306 Results Reviewed to Date: Yes Critical Care Progress Note - Prophylaxis GI Prophylaxis GI: Pepsid - Nutrition Nutrition: Carb controlled, heart healthy. Assessment/Plan - Assessment and Plan (Free Text) Assessment: Patient is a 77 year old woman with PMHx of CAD (s/p PCI's), thyroid disease, HTN, IDDM, HL, COPD, paroxysmal A-fib (on Eliquis) and GERD, now being admitted to the ICU due to mild/early DKA, A-fib with RVR, acute gastroenteritis, transaminitis and lactic acidosis. Gap closed, thus insulin drip to be discontinued and patient started on levemir sc. HR is also controlled on Cardizem drip. Plan: Neuro- stable, alert and awake, speaking in full sentences. Pulm: stable, nasal cannula prn to maintain O2 sat above 90%. Cardio- RVR afib- on Cardizem drip to maintain HR above 110. Digixon level high, will hold dig started on po inderal, Resume home dose eliquis. Cardiology following. - h/o pulm htn RVSP 50. - on lipitor and asa. Endo: patient presented with DKA with gap of 17, repeat [facility] with closed gap, will give stat dose levemir 20 unit sc, and shut down insulin drip in 1-2 hours. Insulin sliding scale, fingerstick ACHS. Carb controlled, heart healthy diet. Hyperthyroidism- on methimazole, will obtain thyroid panel. ID: Sepsis likely due to UTI- will start rocephin follow up urine cx, and bcx. fOLLOW up with stool c diff. GI- Gastroenteritis r/o c diff, stool study pending. Will feed patient pepcid for gi prophylaxis. Heme: stable, continue to monitor. Renal: stable, will change fluid to 1/2 ns. DVT prophylaxis: on eliquis. Patient seen, examined and case discussed with the attending. - Date & Time Date: 08/09/17 Time: 11:50 <Won Navarro - Last Filed: 08/09/17 13:18> CCU Objective - Vital Signs / Intake & Output Vital Signs (Last 4 hours): Vital Signs Pulse 08/09/17 10:35 145 H 08/09/17 10:34 145 H Intake and Output (Last 8hrs): Intake & Output 08/08/17 08/09/17 08/09/17 22:59 06:59 14:59 Intake Total 5 Balance 5 Weight 180 lb 1.6 oz Intake: IV 5 - Medications Active Medications: Active Medications Generic Name Dose Route Start Last Admin Trade Name Freq PRN Reason Stop Dose Admin Apixaban 5 mg 08/09/17 10:00 08/09/17 09:11 Eliquis PO 5 mg BID [facility] Administration Protocol Aspirin 81 mg 08/09/17 10:00 08/09/17 09:11 Ecotrin PO 81 mg DAILY [facility] Administration Atorvastatin Calcium 40 mg 08/09/17 22:00 Lipitor PO HS [facility] diltiaZEM IVPB 100mg in NS 100 mls @ 10 mls/hr 08/09/17 07:13 08/09/17 08:34 Cardizem 100mg In Ns IV 10 mg/hr .Q10H PRN 10 mls/hr TITRATE PER MD ORDER Administration Protocol 10 MG/HR Ceftriaxone Sodium 1 gm in 100 mls @ 100 mls/hr 08/09/17 10:00 08/09/17 10:34 Rocephin 1 Gram Ivpb IVPB 100 mls/hr DAILY [facility] Administration Protocol Insulin Detemir 20 unit 08/09/17 11:00 08/09/17 11:20 Levemir SC 20 unit HS [facility] Administration Insulin Human Regular 0 units 08/09/17 11:30 08/09/17 11:15 Humulin R Low SC Not Given ACHS [facility] Protocol Methimazole 5 mg 08/09/17 10:00 08/09/17 09:28 Tapazole PO 5 mg DAILY [facility] Administration Propranolol HCl 20 mg 08/09/17 10:00 08/09/17 10:35 Inderal PO 20 mg TID [facility] Administration Vitamin A 1 ea 08/09/17 10:51 Vitamin A & D Oint Ud Foilpak TOP BID PRN Dry skin - Patient Studies Lab Studies: Lab Studies 08/09/17 08/09/17 08/09/17 Range/Units 11:23 10:14 09:40 WBC (4.5-11.0) 10^3/ul RBC (3.5-6.1) 10^6/uL Hgb (12.0-16.0) g/dL Hct (36.0-48.0) % MCV (80.0-105.0) fl MCH (25.0-35.0) pg MCHC (31.0-37.0) g/dl RDW (11.5-14.5) % Plt Count (120.0-450.0) 10^3/uL MPV (7.0-11.0) fl Gran % (50.0-68.0) % Lymph % (Auto) (22.0-35.0) % [place] % (Auto) (1.0-6.0) % Eos % (Auto) (1.5-5.0) % Baso % (Auto) (0.0-3.0) % Gran # (1.4-6.5) Lymph # (Auto) (1.2-3.4) [place] # (Auto) (0.1-0.6) Eos # (Auto) (0.0-0.7) Baso # (Auto) (0.0-2.0) K/mm3 pO2 (30-55) mm/Hg VBG pH (7.32-7.43) VBG pCO2 (40-60) VBG HCO3 (21-28) mmol/l VBG Total CO2 (22-28) mmol.L VBG O2 Sat (Calc) (40-65) % VBG Base Excess (0.0-2.0) mmol/L VBG Potassium (3.6-5.2) mmol/L Sodium (132-148) mmol/L Chloride (98-107) mmol/L Glucose (65-105) mg/dl Lactate (0.7-2.1) mmol/L FiO2 % Potassium (3.6-5.0) mmol/L Carbon Dioxide (21-33) mmol/L Anion Gap (10-20) BUN (7-21) mg/dL Creatinine (0.7-1.2) mg/dl Est GFR ( Amer) Est GFR (Non-Af Amer) POC Glucose (mg/dL) 209 H 232 H (65-110) mg/dL Random Glucose (70-110) mg/dL Calcium (8.4-10.5) mg/dL Phosphorus (2.5-4.5) mg/dL Magnesium (1.7-2.2) mg/dL NT-Pro-B Natriuret Pep (0-450) pg/mL Triglycerides (35-160) mg/dL Cholesterol (130-200) mg/dL LDL Cholesterol Direct (0-129) mg/dL HDL Cholesterol (29-60) mg/dL Free T4 0.53 L (0.78-2.19) ng/dL TSH 3rd Generation 3.76 (0.46-4.68) mIU/mL Venous Blood Potassium (3.6-5.2) mmol/L Urine Color (YELLOW) Urine Appearance (CLEAR) Urine pH (4.7-8.0) Ur Specific [place] (1.005-1.035) Urine Protein (<30 mg/dL) mg/dL Urine Glucose (UA) (NEGATIVE) mg/dL Urine Ketones (NEGATIVE) mg/dL Urine Blood (NEGATIVE) Urine Nitrate (NEGATIVE) Urine Bilirubin (NEGATIVE) Urine Urobilinogen (<1 E.U./dL) E.U./dL Ur Leukocyte Esterase (NEGATIVE) Rk/uL Urine RBC (0-2) /hpf Urine WBC (0-6) /hpf Ur Epithelial Cells (0-5) /hpf Urine Bacteria (NEG) Digoxin (0.8-2.0) ng/mL 08/09/17 08/09/17 08/09/17 Range/Units 09:40 09:40 09:40 WBC 5.5 D (4.5-11.0) 10^3/ul RBC 4.55 (3.5-6.1) 10^6/uL Hgb 14.7 (12.0-16.0) g/dL Hct 43.8 (36.0-48.0) % MCV 96.3 (80.0-105.0) fl MCH 32.3 (25.0-35.0) pg MCHC 33.6 (31.0-37.0) g/dl RDW 13.4 (11.5-14.5) % Plt Count 189 (120.0-450.0) 10^3/uL MPV 12.1 H (7.0-11.0) fl Gran % 60.6 (50.0-68.0) % Lymph % (Auto) 28.5 (22.0-35.0) % [place] % (Auto) 10.5 H (1.0-6.0) % Eos % (Auto) 0.0 L (1.5-5.0) % Baso % (Auto) 0.4 (0.0-3.0) % Gran # 3.34 (1.4-6.5) Lymph # (Auto) 1.6 (1.2-3.4) [place] # (Auto) 0.6 (0.1-0.6) Eos # (Auto) 0.0 (0.0-0.7) Baso # (Auto) 0.02 (0.0-2.0) K/mm3 pO2 (30-55) mm/Hg VBG pH (7.32-7.43) VBG pCO2 (40-60) VBG HCO3 (21-28) mmol/l VBG Total CO2 (22-28) mmol.L VBG O2 Sat (Calc) (40-65) % VBG Base Excess (0.0-2.0) mmol/L VBG Potassium (3.6-5.2) mmol/L Sodium 138 (132-148) mmol/L Chloride 103 (98-107) mmol/L Glucose (65-105) mg/dl Lactate (0.7-2.1) mmol/L FiO2 % Potassium 3.9 (3.6-5.0) mmol/L Carbon Dioxide 23 (21-33) mmol/L Anion Gap 16 (10-20) BUN 17 (7-21) mg/dL Creatinine 0.8 (0.7-1.2) mg/dl Est GFR ( Amer) > 60 Est GFR (Non-Af Amer) > 60 POC Glucose (mg/dL) (65-110) mg/dL Random Glucose 298 H (70-110) mg/dL Calcium 8.4 (8.4-10.5) mg/dL Phosphorus 2.9 (2.5-4.5) mg/dL Magnesium 1.7 (1.7-2.2) mg/dL NT-Pro-B Natriuret Pep 1750 H (0-450) pg/mL Triglycerides (35-160) mg/dL Cholesterol (130-200) mg/dL LDL Cholesterol Direct (0-129) mg/dL HDL Cholesterol (29-60) mg/dL Free T4 (0.78-2.19) ng/dL TSH 3rd Generation (0.46-4.68) mIU/mL Venous Blood Potassium (3.6-5.2) mmol/L Urine Color (YELLOW) Urine Appearance (CLEAR) Urine pH (4.7-8.0) Ur Specific [place] (1.005-1.035) Urine Protein (<30 mg/dL) mg/dL Urine Glucose (UA) (NEGATIVE) mg/dL Urine Ketones (NEGATIVE) mg/dL Urine Blood (NEGATIVE) Urine Nitrate (NEGATIVE) Urine Bilirubin (NEGATIVE) Urine Urobilinogen (<1 E.U./dL) E.U./dL Ur Leukocyte Esterase (NEGATIVE) Rk/uL Urine RBC (0-2) /hpf Urine WBC (0-6) /hpf Ur Epithelial Cells (0-5) /hpf Urine Bacteria (NEG) Digoxin 6.2 H* (0.8-2.0) ng/mL 08/09/17 08/09/17 08/09/17 Range/Units 09:40 09:30 09:07 WBC (4.5-11.0) 10^3/ul RBC (3.5-6.1) 10^6/uL Hgb (12.0-16.0) g/dL Hct (36.0-48.0) % MCV (80.0-105.0) fl MCH (25.0-35.0) pg MCHC (31.0-37.0) g/dl RDW (11.5-14.5) % Plt Count (120.0-450.0) 10^3/uL MPV (7.0-11.0) fl Gran % (50.0-68.0) % Lymph % (Auto) (22.0-35.0) % [place] % (Auto) (1.0-6.0) % Eos % (Auto) (1.5-5.0) % Baso % (Auto) (0.0-3.0) % Gran # (1.4-6.5) Lymph # (Auto) (1.2-3.4) [place] # (Auto) (0.1-0.6) Eos # (Auto) (0.0-0.7) Baso # (Auto) (0.0-2.0) K/mm3 pO2 27 L (30-55) mm/Hg VBG pH 7.28 L (7.32-7.43) VBG pCO2 53.0 (40-60) VBG HCO3 24.9 (21-28) mmol/l VBG Total CO2 26.5 (22-28) mmol.L VBG O2 Sat (Calc) 55.2 (40-65) % VBG Base Excess -2.6 L (0.0-2.0) mmol/L VBG Potassium 4.0 (3.6-5.2) mmol/L Sodium 135.0 (132-148) mmol/L Chloride 102.0 (98-107) mmol/L Glucose 328 H (65-105) mg/dl Lactate 3.0 H (0.7-2.1) mmol/L FiO2 21.0 % Potassium (3.6-5.0) mmol/L Carbon Dioxide (21-33) mmol/L Anion Gap (10-20) BUN (7-21) mg/dL Creatinine (0.7-1.2) mg/dl Est GFR ( Amer) Est GFR (Non-Af Amer) POC Glucose (mg/dL) 307 H (65-110) mg/dL Random Glucose (70-110) mg/dL Calcium (8.4-10.5) mg/dL Phosphorus (2.5-4.5) mg/dL Magnesium (1.7-2.2) mg/dL NT-Pro-B Natriuret Pep (0-450) pg/mL Triglycerides 253 H (35-160) mg/dL Cholesterol 137 (130-200) mg/dL LDL Cholesterol Direct 87 (0-129) mg/dL HDL Cholesterol 17 L (29-60) mg/dL Free T4 (0.78-2.19) ng/dL TSH 3rd Generation (0.46-4.68) mIU/mL Venous Blood Potassium 4.0 (3.6-5.2) mmol/L Urine Color (YELLOW) Urine Appearance (CLEAR) Urine pH (4.7-8.0) Ur Specific [place] (1.005-1.035) Urine Protein (<30 mg/dL) mg/dL Urine Glucose (UA) (NEGATIVE) mg/dL Urine Ketones (NEGATIVE) mg/dL Urine Blood (NEGATIVE) Urine Nitrate (NEGATIVE) Urine Bilirubin (NEGATIVE) Urine Urobilinogen (<1 E.U./dL) E.U./dL Ur Leukocyte Esterase (NEGATIVE) Rk/uL Urine RBC (0-2) /hpf Urine WBC (0-6) /hpf Ur Epithelial Cells (0-5) /hpf Urine Bacteria (NEG) Digoxin (0.8-2.0) ng/mL 08/09/17 08/09/17 Range/Units 08:18 06:00 WBC (4.5-11.0) 10^3/ul RBC (3.5-6.1) 10^6/uL Hgb (12.0-16.0) g/dL Hct (36.0-48.0) % MCV (80.0-105.0) fl MCH (25.0-35.0) pg MCHC (31.0-37.0) g/dl RDW (11.5-14.5) % Plt Count (120.0-450.0) 10^3/uL MPV (7.0-11.0) fl Gran % (50.0-68.0) % Lymph % (Auto) (22.0-35.0) % [place] % (Auto) (1.0-6.0) % Eos % (Auto) (1.5-5.0) % Baso % (Auto) (0.0-3.0) % Gran # (1.4-6.5) Lymph # (Auto) (1.2-3.4) [place] # (Auto) (0.1-0.6) Eos # (Auto) (0.0-0.7) Baso # (Auto) (0.0-2.0) K/mm3 pO2 (30-55) mm/Hg VBG pH (7.32-7.43) VBG pCO2 (40-60) VBG HCO3 (21-28) mmol/l VBG Total CO2 (22-28) mmol.L VBG O2 Sat (Calc) (40-65) % VBG Base Excess (0.0-2.0) mmol/L VBG Potassium (3.6-5.2) mmol/L Sodium (132-148) mmol/L Chloride (98-107) mmol/L Glucose (65-105) mg/dl Lactate (0.7-2.1) mmol/L FiO2 % Potassium (3.6-5.0) mmol/L Carbon Dioxide (21-33) mmol/L Anion Gap (10-20) BUN (7-21) mg/dL Creatinine (0.7-1.2) mg/dl Est GFR ( Amer) Est GFR (Non-Af Amer) POC Glucose (mg/dL) 306 H (65-110) mg/dL Random Glucose (70-110) mg/dL Calcium (8.4-10.5) mg/dL Phosphorus (2.5-4.5) mg/dL Magnesium (1.7-2.2) mg/dL NT-Pro-B Natriuret Pep (0-450) pg/mL Triglycerides (35-160) mg/dL Cholesterol (130-200) mg/dL LDL Cholesterol Direct (0-129) mg/dL HDL Cholesterol (29-60) mg/dL Free T4 (0.78-2.19) ng/dL TSH 3rd Generation (0.46-4.68) mIU/mL Venous Blood Potassium (3.6-5.2) mmol/L Urine Color Yellow (YELLOW) Urine Appearance Cloudy (CLEAR) Urine pH 6.0 (4.7-8.0) Ur Specific [place] 1.015 (1.005-1.035) Urine Protein Trace H (<30 mg/dL) mg/dL Urine Glucose (UA) >=1000 (NEGATIVE) mg/dL Urine Ketones Trace H (NEGATIVE) mg/dL Urine Blood Trace-intact H (NEGATIVE) Urine Nitrate Negative (NEGATIVE) Urine Bilirubin Negative (NEGATIVE) Urine Urobilinogen 0.2 (<1 E.U./dL) E.U./dL Ur Leukocyte Esterase Small H (NEGATIVE) Rk/uL Urine RBC 0 - 2 (0-2) /hpf Urine WBC Tntc (0-6) /hpf Ur Epithelial Cells 0 - 2 (0-5) /hpf Urine Bacteria Many (NEG) Digoxin (0.8-2.0) ng/mL Laboratory Results - last 24 hr 08/09/17 08/09/17 08/09/17 06:00 08:18 09:07 WBC RBC Hgb Hct MCV MCH MCHC RDW Plt Count MPV Gran % Lymph % (Auto) [place] % (Auto) Eos % (Auto) Baso % (Auto) Gran # Lymph # (Auto) [place] # (Auto) Eos # (Auto) Baso # (Auto) pO2 VBG pH VBG pCO2 VBG HCO3 VBG Total CO2 VBG O2 Sat (Calc) VBG Base Excess VBG Potassium Sodium Chloride Glucose Lactate FiO2 Potassium Carbon Dioxide Anion Gap BUN Creatinine Est GFR ( Amer) Est GFR (Non-Af Amer) POC Glucose (mg/dL) 306 H 307 H Random Glucose Calcium Phosphorus Magnesium NT-Pro-B Natriuret Pep Triglycerides Cholesterol LDL Cholesterol Direct HDL Cholesterol Free T4 TSH 3rd Generation Venous Blood Potassium Urine Color Yellow Urine Appearance Cloudy Urine pH 6.0 Ur Specific [place] 1.015 Urine Protein Trace H Urine Glucose (UA) >=1000 Urine Ketones Trace H Urine Blood Trace-intact H Urine Nitrate Negative Urine Bilirubin Negative Urine Urobilinogen 0.2 Ur Leukocyte Esterase Small H Urine RBC 0 - 2 Urine WBC Tntc Ur Epithelial Cells 0 - 2 Urine Bacteria Many Digoxin 08/09/17 08/09/17 08/09/17 09:30 09:40 09:40 WBC RBC Hgb Hct MCV MCH MCHC RDW Plt Count MPV Gran % Lymph % (Auto) [place] % (Auto) Eos % (Auto) Baso % (Auto) Gran # Lymph # (Auto) [place] # (Auto) Eos # (Auto) Baso # (Auto) pO2 27 L VBG pH 7.28 L VBG pCO2 53.0 VBG HCO3 24.9 VBG Total CO2 26.5 VBG O2 Sat (Calc) 55.2 VBG Base Excess -2.6 L VBG Potassium 4.0 Sodium 135.0 138 Chloride 102.0 103 Glucose 328 H Lactate 3.0 H FiO2 21.0 Potassium 3.9 Carbon Dioxide 23 Anion Gap 16 BUN 17 Creatinine 0.8 Est GFR ( Amer) > 60 Est GFR (Non-Af Amer) > 60 POC Glucose (mg/dL) Random Glucose 298 H Calcium 8.4 Phosphorus 2.9 Magnesium 1.7 NT-Pro-B Natriuret Pep 1750 H Triglycerides 253 H Cholesterol 137 LDL Cholesterol Direct 87 HDL Cholesterol 17 L Free T4 TSH 3rd Generation Venous Blood Potassium 4.0 Urine Color Urine Appearance Urine pH Ur Specific [place] Urine Protein Urine Glucose (UA) Urine Ketones Urine Blood Urine Nitrate Urine Bilirubin Urine Urobilinogen Ur Leukocyte Esterase Urine RBC Urine WBC Ur Epithelial Cells Urine Bacteria Digoxin 08/09/17 08/09/17 08/09/17 09:40 09:40 09:40 WBC 5.5 D RBC 4.55 Hgb 14.7 Hct 43.8 MCV 96.3 MCH 32.3 MCHC 33.6 RDW 13.4 Plt Count 189 MPV 12.1 H Gran % 60.6 Lymph % (Auto) 28.5 [place] % (Auto) 10.5 H Eos % (Auto) 0.0 L Baso % (Auto) 0.4 Gran # 3.34 Lymph # (Auto) 1.6 [place] # (Auto) 0.6 Eos # (Auto) 0.0 Baso # (Auto) 0.02 pO2 VBG pH VBG pCO2 VBG HCO3 VBG Total CO2 VBG O2 Sat (Calc) VBG Base Excess VBG Potassium Sodium Chloride Glucose Lactate FiO2 Potassium Carbon Dioxide Anion Gap BUN Creatinine Est GFR ( Amer) Est GFR (Non-Af Amer) POC Glucose (mg/dL) Random Glucose Calcium Phosphorus Magnesium NT-Pro-B Natriuret Pep Triglycerides Cholesterol LDL Cholesterol Direct HDL Cholesterol Free T4 0.53 L TSH 3rd Generation 3.76 Venous Blood Potassium Urine Color Urine Appearance Urine pH Ur Specific [place] Urine Protein Urine Glucose (UA) Urine Ketones Urine Blood Urine Nitrate Urine Bilirubin Urine Urobilinogen Ur Leukocyte Esterase Urine RBC Urine WBC Ur Epithelial Cells Urine Bacteria Digoxin 6.2 H* 08/09/17 08/09/17 10:14 11:23 WBC RBC Hgb Hct MCV MCH MCHC RDW Plt Count MPV Gran % Lymph % (Auto) [place] % (Auto) Eos % (Auto) Baso % (Auto) Gran # Lymph # (Auto) [place] # (Auto) Eos # (Auto) Baso # (Auto) pO2 VBG pH VBG pCO2 VBG HCO3 VBG Total CO2 VBG O2 Sat (Calc) VBG Base Excess VBG Potassium Sodium Chloride Glucose Lactate FiO2 Potassium Carbon Dioxide Anion Gap BUN Creatinine Est GFR ( Amer) Est GFR (Non-Af Amer) POC Glucose (mg/dL) 232 H 209 H Random Glucose Calcium Phosphorus Magnesium NT-Pro-B Natriuret Pep Triglycerides Cholesterol LDL Cholesterol Direct HDL Cholesterol Free T4 TSH 3rd Generation Venous Blood Potassium Urine Color Urine Appearance Urine pH Ur Specific [place] Urine Protein Urine Glucose (UA) Urine Ketones Urine Blood Urine Nitrate Urine Bilirubin Urine Urobilinogen Ur Leukocyte Esterase Urine RBC Urine WBC Ur Epithelial Cells Urine Bacteria Digoxin Critical Care Progress Note - Nutrition Nutrition: Nutrition Category Date Time Status Heart Healthy Diet [DIET] Diets 08/09/17 Lunch Ordered Assessment/Plan - Assessment and Plan (Free Text) Plan: Patient seen and examined, on rounds with resident, agree with note with following additions/exceptions: Patient is 77 y/o with PMHx of CAD (s/p PCI's), thyroid disease, HTN, IDDM, HL, COPD, paroxysmal A-fib (on Eliquis) and GERD, now being admitted to the ICU for mild DKA, A-fib with RVR. Currently afebrile, HD stable, comfortable in NAD, in Afib with HR 100-120s on diltiazem drip. Digoxin being held due to elevated levels. Off insulin drip, given Levemir x 1, will start on PO diet Afib with RVR DKA Dehydration UTI Hyperthyroid Recommend: - supp o2 as needed - follow up UCx, BCx, Procal - Cipro for UTI - IVF hydration - Diabetic diet - Levemir QHS, sliding scale - Rate control, Cardizem drip, hold Digoxin - ECHO - cardiology follow up - cont with Methimazole, check TSH - GI ppx, - DVT, Eliquis - Monitor in MICU
[2017-08-09] MEDS: methIMAzole 5 MG TAB PO SCH (09:28)
[2017-08-09 09:47] LABS: BASO # 0.02 K/mm3 (0.0-2.0); BASO % 0.4 % (0.0-3.0); GRAN # 3.34 (1.4-6.5); GRAN % 60.6 % (50.0-68.0); HEMOGLOBIN 14.7 g/dL (12.0-16.0); LYMPH # 1.6 (1.2-3.4); LYMPH % 28.5 % (22.0-35.0); MEAN CELL VOLUME 96.3 fl (80.0-105.0); MEAN CORPUSCULAR HEMOGLOBIN 32.3 pg (25.0-35.0); MEAN CORPUSCULAR HGB CONC 33.6 g/dl (31.0-37.0); MEAN PLATELET VOLUME 12.1 fl (7.0-11.0); MONO # 0.6 (0.1-0.6); MONO % 10.5 % (1.0-6.0); RBC 4.55 10^6/uL (3.5-6.1); RED CELL DISTRIBUTION WIDTH 13.4 % (11.5-14.5); VENOUS BLOOD GAS BASE EXCESS -2.6 mmol/L (0.0-2.0); VENOUS BLOOD GAS PO2 27 mm/Hg (30-55); VENOUS BLOOD PH 7.28 (7.32-7.43); WHITE BLOOD COUNT 5.5 10^3/ul (4.5-11.0)
[2017-08-09] MEDS ORDERED: Propranolol 1 mg/mL Inj IV STA (09:51)
--- NOTE | 2017-08-09 09:52 | RAD ---
HISTORY: tachycardic COMPARISON: 05/20/2017 FINDINGS: LUNGS: No active pulmonary disease. PLEURA: No significant pleural effusion identified, no pneumothorax apparent. CARDIOVASCULAR: Normal. OSSEOUS STRUCTURES: No significant abnormalities. VISUALIZED UPPER ABDOMEN: Normal. OTHER FINDINGS: None. IMPRESSION: No active disease.
[2017-08-09 10:08] LABS: B-TYPE NATRIURETIC PEPTIDE 1750 pg/mL (0-450)
[2017-08-09 10:10] LABS: HDL CHOLESTEROL 17 mg/dL (29-60)
[2017-08-09 10:11] LABS: BLOOD UREA NITROGEN 17 mg/dL (7-21); CALCIUM 8.4 mg/dL (8.4-10.5); GFR AFRICAN-AMERICAN > 60; GFR NON-AFRICAN AMERICAN > 60; MAGNESIUM 1.7 mg/dL (1.7-2.2)
[2017-08-09 10:16] LABS: FREE T4 0.53 ng/dL (0.78-2.19)
[2017-08-09 10:20] LABS: LDL CHOLESTEROL 87 mg/dL (0-129)
[2017-08-09] MEDS: cefTRIAXone 1 gm 1 GM/100 ML BAG IVPB SCH (10:34)
[2017-08-09] MEDS ORDERED: Vitamins A & D Oint UD Foilpak TOP PRN (10:51)
--- NOTE | 2017-08-09 11:06 | US ---
HISTORY: Eval for acute hepatobiliary dz (LFT's elevated) COMPARISON: Comparison is made to the previous CT of the chest abdomen and pelvis dated 05/23/2014 previous ultrasound of the kidneys dated 06/29/2012 TECHNIQUE: Sonographic evaluation of the abdomen. FINDINGS: LIVER: Measures 21.9 cm. Heterogeneous increased echogenicity of the liver parenchyma. No mass. No intrahepatic bile duct dilatation. GALLBLADDER: Unremarkable. No gallstones. COMMON BILE DUCT: Measures 3.2 mm. No stones. No dilatation. PANCREAS: Unremarkable as visualized. No mass. No ductal dilatation. RIGHT KIDNEY: Measures 11.2 x 5.2 x 5 .9cm. Normal echogenicity. No calculus, mass, or hydronephrosis. LEFT KIDNEY: Measures 10.7 x 5.3 x 7cm. Normal echogenicity. No calculus, mass, or hydronephrosis. SPLEEN: Normal in size and contour. No mass. AORTA: No aneurysmal dilatation. IVC: Unremarkable. OTHER FINDINGS: None. IMPRESSION: Heterogeneous echogenic and [id number] enlarged liver noted. Findings nonspecific and the differential consideration includes hepatic steatosis or parenchymal liver disease. No evidence of cholelithiasis or cholecystitis.
[2017-08-09] MEDS: Insulin Reg-LOW-Coverage SC SCH ×3 (11:15→22:18)
[2017-08-09] MEDS: Insulin Detemir 100 units/ml Vial (Levemir) SC SCH ×2 (11:20→22:17)
[2017-08-09] MEDS ORDERED: Digoxin 125 mcg (0.125 mg) Tab PO SCH (14:00)
[2017-08-09] MEDS ORDERED: Pneumococcal 23-Valent Vaccine IM ONE (14:05)
[2017-08-09] MEDS ORDERED: Influenza Vaccine 60 mcg/0.5 mL SYR (4YR UP) IM ONE (14:05)
--- NOTE | 2017-08-09 21:17 | HP ---
CHIEF COMPLAINT AND HISTORY OF PRESENT ILLNESS: This is a 77-year-old female who was coming into the hospital with past medical history of hypertension, COPD, dyslipidemia, atrial fibrillation, diabetes type 2. She was having diarrhea. She states she was having palpitations as well. When she came into the ER, she was found to have rapid AFib. Her heart rate had been at 155 at one point. The patient was given Cardizem to help control her rate. The patient states she is feeling better; however, palpitations are bit bitter. She also was not able to take any insulin yesterday and the sugars are significantly elevated. She denies any chest pain. No abdominal pain. No dysuria or frequency. No nocturia. No weakness in the arms or in the legs. She has no dysphagia or dysarthria. ALLERGIES: PENICILLIN, SHRIMP, CLARITHROMYCIN. HOME MEDICATIONS: Galantamine. PAST SURGICAL HISTORY: No significant past surgical history. PAST MEDICAL HISTORY: Atrial fibrillation, hypertension, COPD, dyslipidemia, diabetes type 2, hypothyroidism with hyperthyroidism secondary to medications. SOCIAL HISTORY: She does not smoke, drink, or use drugs. PHYSICAL EXAMINATION: VITAL SIGNS: Temperature is 97.6, pulse of 128, blood pressure 122/80, respirations 14, O2 saturation 95%. Height is 5 feet 3-1/2 inches. BMI is 31. GENERAL: The patient lying in bed, uncomfortable, and in no acute distress. HEENT: Atraumatic and normocephalic. Anicteric sclerae. Moist mucosa. [place] conjunctivae. No oral lesions. NECK: No JVD, anterior and posterior adenopathy, thyromegaly, or bruits. HEART: S1 and S2 with tachycardia. 2/6 systolic ejection murmur. No rubs or gallop. LUNGS: Clear to auscultation bilaterally. No wheezes, rales, or rhonchi. ABDOMEN: Bowel sounds are positive. Soft, nontender and nondistended. No hepatosplenomegaly. No rebound and no guarding. EXTREMITIES: No cyanosis, clubbing, or edema. NEUROLOGIC: No facial asymmetry. Tongue is midline. No uvula deviation. Power is 5/5 upper extremity and lower extremity. Sensation intact in upper extremity and lower extremity. PSYCHIATRIC: She is awake, alert and oriented x3. No anxiety or depression. She has normal affect. GENITOURINARY: No CVA tenderness. VASCULAR: 2+ pulses in the carotid pulses and pedal pulses. SKIN: No erythema or nodules SPINE: Shows normal curvature. LABORATORY DATA: White count of 8.9, hemoglobin 16. INR is 1.2. Lactate is 4.1. Chemistry shows sodium 133, potassium 4.5. Glucose is 568. AST and ALT 147 and 132. Albumin is 4.0. Urine shows nitrites are negative, bilirubin is negative, protein is trace. ASSESSMENT: 1. Atrial fibrillation with rapid rate. 2. Diabetes type 2, uncontrolled. 3. Hypertension. 4. Chronic obstructive pulmonary disease. 5. Dyslipidemia. 6. Obesity with body mass index of 31. 7. Coronary artery disease. 8. History of hypo and hyperthyroidism. 9. Transaminitis. 10. Gastroenteritis. PLAN: The patient is going to be admitted to the hospital. She has a rapid AFib. She has been given Cardizem. She is going to need IV insulin because of her uncontrolled diabetes with possible early DKA. She does have an anion gap of 18. The patient is going to be in the ICU. I did speak to the ICU attending this morning. The patient is going to be on digoxin and she is going to continue on Eliquis for atrial fibrillation. She is on fluids with normal saline. She is on Tapazole. I will get a TSH to check. She has blood cultures and urine cultures had been ordered. I have asked Dr. Modi to follow the patient. We will continue to follow closely. Tod Woodruff MD
--- NOTE | 2017-08-09 21:58 | CARD ---
APPROVED REPORT EKG Measurement Heart [id number] <Conclusion> Atrial fibrillation with rapid ventricular responsees Low voltage QRS Septal infarct, age undetermined ST & T wave abnormality, consider inferolateral ischemia Abnormal ECG
[2017-08-09] MEDS ORDERED: Insulin Detemir 100 units/ml Vial (Levemir) SC SCH (22:00)
[2017-08-10] MEDS: diltiaZEM IVPB 100mg in NS 100 ML IV PRN (05:50)
[2017-08-10 06:51] LABS: BASO # 0.02 K/mm3 (0.0-2.0); BASO % 0.3 % (0.0-3.0); EOS % 0.7 % (1.5-5.0); GRAN # 3.51 (1.4-6.5); GRAN % 61.1 % (50.0-68.0); HEMOGLOBIN 14.3 g/dL (12.0-16.0); LYMPH # 1.4 (1.2-3.4); MEAN CELL VOLUME 97.1 fl (80.0-105.0); MEAN CORPUSCULAR HEMOGLOBIN 32.4 pg (25.0-35.0); MEAN CORPUSCULAR HGB CONC 33.3 g/dl (31.0-37.0); MEAN PLATELET VOLUME 12.3 fl (7.0-11.0); MONO # 0.7 (0.1-0.6); MONO % 12.9 % (1.0-6.0); RBC 4.42 10^6/uL (3.5-6.1); RED CELL DISTRIBUTION WIDTH 13.6 % (11.5-14.5); WHITE BLOOD COUNT 5.8 10^3/ul (4.5-11.0)
[2017-08-10 07:20] LABS: ALB/GLOB RATIO 1.2 (1.1-1.8); ALBUMIN 3.2 g/dL (3.0-4.8); ALT/SGPT 96 U/L (7-56); AST/SGOT 82 U/L (14-36); BLOOD UREA NITROGEN 15 mg/dL (7-21); CALCIUM 8.6 mg/dL (8.4-10.5); GFR AFRICAN-AMERICAN > 60; GFR NON-AFRICAN AMERICAN > 60; MAGNESIUM 1.8 mg/dL (1.7-2.2)
[2017-08-10] MEDS: Insulin Reg-HIGH-Coverage SC SCH ×4 (08:00→22:06)
--- NOTE | 2017-08-10 08:13 | CON ---
DATE: 08/09/2017 REASON FOR CONSULTATION: AFib with rapid ventricular rate, shortness of breath, history of chronic atrial fibrillation, history of coronary artery disease, cardiac evaluation and management. BRIEF CLINICAL HISTORY: This is a 77-year-old female being followed by Dr. Andrade, Dr. Kaur Khan's group, Dr. Mccain. History of coronary artery disease, status post PTCA 10 years ago, history of a stent recently in 2009, recent repeat catheterization [facility]. As per patient, recently saw Dr. Andrade and supposed to have an appointment today, came in with complaint of shortness of breath, found to be in AFib with rapid ventricular rate of 180, though patient has a known history of AFib. Denies any chest pain. Denies any palpitation but complaining of shortness of breath. PAST MEDICAL HISTORY: Significant for COPD, history of coronary artery disease status post stent in LAD 10 years ago, history of most recent catheterization 2 years ago and was told it was probably okay as per patient, told by Dr. Andrade. History of hypertension, history of hyperlipidemia, history of obesity, history of irritable bowel syndrome, history of osteoarthritis, history of peripheral neuropathy, history of COPD being followed by Dr. Cordoba's group, history of gastroesophageal reflux, history of lumbar spinal stenosis, history of cervical disk disease, and allergic rhinitis. History of hyperthyroidism, history of recent cardiac workup, history of recent echo done on 05/18/2017 and that showed normal LV function, within the normal limit mitral regurgitation, moderate pulmonary hypertension, RV systolic pressure recorded 50, calculated ejection fraction 60.3. Prior to that, the patient had echo on 08/18/2015 here at [facility] that showed ejection fraction 60%-65%, trace aortic regurgitation, mild mitral regurgitation, and mild tricuspid regurgitation. At that time, RV systolic pressure was 36. The patient also had cardiac catheterization done in [place] on 06/27/[address] Pearl. Patent stent in LAD and circumflex, severe diagonal disease, moderate disease in side branch, normal LV function, medical treatment recommended. A small diagonal vessel 90% stenosis, very small disease distally, medical treatment recommended. Most recently, the patient's another cardiac catheterization at [facility] by Dr. Mccain told as negative. CURRENT MEDICATIONS: The patient is taking metamizole, Cardizem, sotalol, Betapace, insulin, digoxin, atorvastatin, aspirin, and apixaban. REVIEW OF SYSTEMS: As per HPI. ALLERGIES: THE PATIENT IS ALLERGIC TO PENICILLIN, SHRIMP, CLARITHROMYCIN, AND BIAXIN. PHYSICAL EXAMINATION: VITAL SIGNS: Temperature afebrile, heart rate is 120, blood pressure 132/80. HEENT: PERRLA. Extraocular muscles intact. NECK: Supple. No carotid bruits or thyromegaly. CHEST: Clear to auscultation. HEART: S1, S2 regular. ABDOMEN: Soft. EXTREMITIES: Clubbing and cyanosis negative. LABORATORY DATA: Blood workup as follows: WBC 8.3, hemoglobin 16, hematocrit 46.7, platelet count 227. Chemistry shows sodium 130, potassium 4.5, chloride 98, carbon dioxide 18, and anion gap of 23. Random sugar of 568. Troponin 0.04. IMPRESSION: 1. Hyperthyroidism. 2. Gastroesophageal reflux. 3. Lumbar spinal stenosis. 4. History of chronic atrial fibrillation, on anticoagulation. 5. History of chronic obstructive pulmonary disease. 6. History of obesity. 7. History of osteoarthritis. 8. History of peripheral neuropathy. 9. History of irritable bowel syndrome. 10. Hyperlipidemia. 11. Hypertension. 12. Cervical disk disease. 13. Allergic rhinitis. 14. Type 2 diabetes, poorly controlled blood sugar, on admission was 568. RECOMMENDATION: Continue Cardizem. We will start propranolol, assess the TSH level also. Call Dr. Andrade's service on telephone number [phone], to get more information in reference to recent cath. In interim, I will continue Eliquis and will continue Cardizem and will add on beta-titi, propranolol to heart rate. Further recommendation will be made depending on the hospital course. Most recent echo, the patient had in April shows ejection fraction preserved, mild MR, mild TR. We will get the TSH level. We will get the lipid profile phosphate, and hemoglobin A1c tomorrow. Thank you, Dr. Woodruff, for providing us the opportunity in taking care of the patient, Hawa Chavis. We will follow with you. Gail Modi MD [facility] # [id number]
[2017-08-10] MEDS: methIMAzole 5 MG TAB PO SCH (09:41)
[2017-08-10] MEDS: Potassium & Sodium Phosphate PO SCH (09:42)
[2017-08-10] MEDS: cefTRIAXone 1 gm 1 GM/100 ML BAG IVPB SCH (09:42)
--- NOTE | 2017-08-10 09:53 | CP.CCUPN ---
<Jenna Parnellla - Last Filed: 08/10/17 13:43> CCU Subjective - Physician Review Subjective (Free Text): 08/10/17 07:40 Patient remained in RVR afib overnight. Patient's Cardizem drip was increased, patient received po Cardizem this AM improving HR. Patient otherwise states she' s feeling much better, denies cp, sob, nausea, vomiting or diarrhea. No episode of diarrhea since admission to ICU. Critical Care Time Spent (in minutes): 45 CCU Objective - Vital Signs / Intake & Output Vital Signs (Last 4 hours): Vital Signs Pulse BP 08/10/17 09:41 133 H 119/69 08/10/17 09:40 124 H 119/69 08/10/17 07:21 135 H 129/66 Intake and Output (Last 8hrs): Intake & Output 08/09/17 08/10/17 08/10/17 22:59 06:59 14:59 Intake Total 100 100 Balance 100 100 Intake: IV 100 100 - Physical Exam Head: Positive for: Atraumatic, Normocephalic Pupils: Positive for: PERRL Extroacular Muscles: Positive for: EOMI Conjunctiva: Positive for: Normal Ears: Positive for: Normal Mouth: Positive for: Moist Mucous Membranes Pharnyx: Positive for: Normal Nose (External): Positive for: Atraumatic Nose (Internal): Positive for: Normal Inspection Neck: Positive for: Normal Range of Motion Respiratory/Chest: Positive for: Clear to Auscultation (bilaterally), Good Air Exchange. Negative for: Respiratory Distress, Accessory Muscle Use Cardiovascular: Positive for: Tachycardic Abdomen: Positive for: Normal Bowel Sounds. Negative for: Tenderness, Distention, Peritoneal Signs Upper Extremity: Positive for: Normal Inspection. Negative for: Cyanosis, Edema Lower Extremity: Positive for: Normal Inspection. Negative for: Edema Neurological: Positive for: GCS=15, CN II-XII Intact, Speech Normal Skin: Positive for: Warm, Dry, Rashes, Normal Color Psychiatric: Positive for: Alert, Oriented x 3, Normal Insight, Normal Concentration - Medications Active Medications: Active Medications Generic Name Dose Route Start Last Admin Trade Name Freq PRN Reason Stop Dose Admin Apixaban 5 mg 08/09/17 10:00 08/10/17 09:41 Eliquis PO 5 mg BID MIRNA Administration Protocol Aspirin 81 mg 08/09/17 10:00 08/10/17 09:41 Ecotrin PO 81 mg DAILY MIRNA Administration Atorvastatin Calcium 40 mg 08/09/17 22:00 08/09/17 22:18 Lipitor PO 40 mg HS MIRNA Administration Famotidine 20 mg 08/09/17 22:00 08/09/17 22:18 Pepcid PO 20 mg HS MIRNA Administration diltiaZEM IVPB 100mg in NS 100 mls @ 10 mls/hr 08/09/17 07:13 08/10/17 05:50 Cardizem 100mg In Ns IV 08/10/17 11:00 10 mg/hr .Q10H PRN 10 mls/hr TITRATE PER MD ORDER Administration Protocol 10 MG/HR Ceftriaxone Sodium 1 gm in 100 mls @ 100 mls/hr 08/09/17 10:00 08/10/17 09:42 Rocephin 1 Gram Ivpb IVPB 100 mls/hr DAILY MIRNA Administration Protocol Insulin Detemir 20 unit 08/09/17 11:00 08/09/17 22:17 Levemir SC 20 unit HS MIRNA Administration Insulin Human Regular 0 units 08/10/17 07:30 Humulin R High SC ACHS MIRNA Protocol Methimazole 5 mg 08/09/17 10:00 08/10/17 09:41 Tapazole PO 5 mg DAILY MIRNA Administration Potassium Phos/Sodium Phos 1 pkt 08/10/17 10:00 08/10/17 09:42 Neutra-Phos PO 08/12/17 10:01 1 pkt BID MIRNA Administration Propranolol HCl 20 mg 08/09/17 10:00 08/10/17 09:41 Inderal PO 20 mg TID MIRNA Administration Verapamil HCl 40 mg 08/10/17 10:00 08/10/17 09:40 Calan Tab PO 40 mg TID MIRNA Administration Verapamil HCl 2.5 mg 08/10/17 09:23 Verapamil Inj IVP Q6H PRN for herat rate >130 Vitamin A 1 ea 08/09/17 10:51 Vitamin A & D Oint Ud Foilpak TOP BID PRN Dry skin - Patient Studies Lab Studies: Microbiology Studies 08/09/17 09:40 Blood Culture - Preliminary Blood NO GROWTH AFTER 24 HOURS 08/09/17 09:30 Blood Culture - Preliminary Blood NO GROWTH AFTER 24 HOURS Lab Studies 08/10/17 08/10/17 08/10/17 Range/Units 08:28 05:50 05:50 WBC 5.8 (4.5-11.0) 10^3/ul RBC 4.42 (3.5-6.1) 10^6/uL Hgb 14.3 (12.0-16.0) g/dL Hct 42.9 (36.0-48.0) % MCV 97.1 (80.0-105.0) fl MCH 32.4 (25.0-35.0) pg MCHC 33.3 (31.0-37.0) g/dl RDW 13.6 (11.5-14.5) % Plt Count 188 (120.0-450.0) 10^3/uL MPV 12.3 H (7.0-11.0) fl Gran % 61.1 (50.0-68.0) % Lymph % (Auto) 25.0 (22.0-35.0) % [place] % (Auto) 12.9 H (1.0-6.0) % Eos % (Auto) 0.7 L (1.5-5.0) % Baso % (Auto) 0.3 (0.0-3.0) % Gran # 3.51 (1.4-6.5) Lymph # (Auto) 1.4 (1.2-3.4) [place] # (Auto) 0.7 H (0.1-0.6) Eos # (Auto) 0.0 (0.0-0.7) Baso # (Auto) 0.02 (0.0-2.0) K/mm3 Sodium 137 (132-148) mmol/L Potassium 4.0 (3.6-5.0) mmol/L Chloride 103 (98-107) mmol/L Carbon Dioxide 25 (21-33) mmol/L Anion Gap 12 (10-20) BUN 15 (7-21) mg/dL Creatinine 0.7 (0.7-1.2) mg/dl Est GFR ( Amer) > 60 Est GFR (Non-Af Amer) > 60 POC Glucose (mg/dL) 196 H (65-110) mg/dL Random Glucose 225 H (70-110) mg/dL Calcium 8.6 (8.4-10.5) mg/dL Phosphorus 2.2 L (2.5-4.5) mg/dL Magnesium 1.8 (1.7-2.2) mg/dL Total Bilirubin 0.4 (0.2-1.3) mg/dL AST 82 H D (14-36) U/L ALT 96 H (7-56) U/L Alkaline Phosphatase 48 (38-126) U/L NT-Pro-B Natriuret Pep (0-450) pg/mL Total Protein 5.9 (5.8-8.3) g/dL Albumin 3.2 (3.0-4.8) g/dL Globulin 2.7 gm/dL Albumin/Globulin Ratio 1.2 (1.1-1.8) Triglycerides (35-160) mg/dL Cholesterol (130-200) mg/dL LDL Cholesterol Direct (0-129) mg/dL HDL Cholesterol (29-60) mg/dL Procalcitonin (0.19-0.49) NG/ML Free T4 (0.78-2.19) ng/dL TSH 3rd Generation (0.46-4.68) mIU/mL Digoxin (0.8-2.0) ng/mL Influenza Typ A,B (EIA) (NEGATIVE) 08/09/17 08/09/17 08/09/17 Range/Units 22:15 18:29 16:34 WBC (4.5-11.0) 10^3/ul RBC (3.5-6.1) 10^6/uL Hgb (12.0-16.0) g/dL Hct (36.0-48.0) % MCV (80.0-105.0) fl MCH (25.0-35.0) pg MCHC (31.0-37.0) g/dl RDW (11.5-14.5) % Plt Count (120.0-450.0) 10^3/uL MPV (7.0-11.0) fl Gran % (50.0-68.0) % Lymph % (Auto) (22.0-35.0) % [place] % (Auto) (1.0-6.0) % Eos % (Auto) (1.5-5.0) % Baso % (Auto) (0.0-3.0) % Gran # (1.4-6.5) Lymph # (Auto) (1.2-3.4) [place] # (Auto) (0.1-0.6) Eos # (Auto) (0.0-0.7) Baso # (Auto) (0.0-2.0) K/mm3 Sodium (132-148) mmol/L Potassium (3.6-5.0) mmol/L Chloride (98-107) mmol/L Carbon Dioxide (21-33) mmol/L Anion Gap (10-20) BUN (7-21) mg/dL Creatinine (0.7-1.2) mg/dl Est GFR ( Amer) Est GFR (Non-Af Amer) POC Glucose (mg/dL) 234 H 253 H (65-110) mg/dL Random Glucose (70-110) mg/dL Calcium (8.4-10.5) mg/dL Phosphorus (2.5-4.5) mg/dL Magnesium (1.7-2.2) mg/dL Total Bilirubin (0.2-1.3) mg/dL AST (14-36) U/L ALT (7-56) U/L Alkaline Phosphatase (38-126) U/L NT-Pro-B Natriuret Pep (0-450) pg/mL Total Protein (5.8-8.3) g/dL Albumin (3.0-4.8) g/dL Globulin gm/dL Albumin/Globulin Ratio (1.1-1.8) Triglycerides (35-160) mg/dL Cholesterol (130-200) mg/dL LDL Cholesterol Direct (0-129) mg/dL HDL Cholesterol (29-60) mg/dL Procalcitonin (0.19-0.49) NG/ML Free T4 (0.78-2.19) ng/dL TSH 3rd Generation (0.46-4.68) mIU/mL Digoxin (0.8-2.0) ng/mL Influenza Typ A,B (EIA) Negative for flu a/b (NEGATIVE) 08/09/17 08/09/17 08/09/17 Range/Units 11:23 10:14 09:40 WBC (4.5-11.0) 10^3/ul RBC (3.5-6.1) 10^6/uL Hgb (12.0-16.0) g/dL Hct (36.0-48.0) % MCV (80.0-105.0) fl MCH (25.0-35.0) pg MCHC (31.0-37.0) g/dl RDW (11.5-14.5) % Plt Count (120.0-450.0) 10^3/uL MPV (7.0-11.0) fl Gran % (50.0-68.0) % Lymph % (Auto) (22.0-35.0) % [place] % (Auto) (1.0-6.0) % Eos % (Auto) (1.5-5.0) % Baso % (Auto) (0.0-3.0) % Gran # (1.4-6.5) Lymph # (Auto) (1.2-3.4) [place] # (Auto) (0.1-0.6) Eos # (Auto) (0.0-0.7) Baso # (Auto) (0.0-2.0) K/mm3 Sodium (132-148) mmol/L Potassium (3.6-5.0) mmol/L Chloride (98-107) mmol/L Carbon Dioxide (21-33) mmol/L Anion Gap (10-20) BUN (7-21) mg/dL Creatinine (0.7-1.2) mg/dl Est GFR ( Amer) Est GFR (Non-Af Amer) POC Glucose (mg/dL) 209 H 232 H (65-110) mg/dL Random Glucose (70-110) mg/dL Calcium (8.4-10.5) mg/dL Phosphorus (2.5-4.5) mg/dL Magnesium (1.7-2.2) mg/dL Total Bilirubin (0.2-1.3) mg/dL AST (14-36) U/L ALT (7-56) U/L Alkaline Phosphatase (38-126) U/L NT-Pro-B Natriuret Pep (0-450) pg/mL Total Protein (5.8-8.3) g/dL Albumin (3.0-4.8) g/dL Globulin gm/dL Albumin/Globulin Ratio (1.1-1.8) Triglycerides (35-160) mg/dL Cholesterol (130-200) mg/dL LDL Cholesterol Direct (0-129) mg/dL HDL Cholesterol (29-60) mg/dL Procalcitonin (0.19-0.49) NG/ML Free T4 0.53 L (0.78-2.19) ng/dL TSH 3rd Generation 3.76 (0.46-4.68) mIU/mL Digoxin (0.8-2.0) ng/mL Influenza Typ A,B (EIA) (NEGATIVE) 08/09/17 08/09/17 08/09/17 Range/Units 09:40 09:40 09:40 WBC (4.5-11.0) 10^3/ul RBC (3.5-6.1) 10^6/uL Hgb (12.0-16.0) g/dL Hct (36.0-48.0) % MCV (80.0-105.0) fl MCH (25.0-35.0) pg MCHC (31.0-37.0) g/dl RDW (11.5-14.5) % Plt Count (120.0-450.0) 10^3/uL MPV (7.0-11.0) fl Gran % (50.0-68.0) % Lymph % (Auto) (22.0-35.0) % [place] % (Auto) (1.0-6.0) % Eos % (Auto) (1.5-5.0) % Baso % (Auto) (0.0-3.0) % Gran # (1.4-6.5) Lymph # (Auto) (1.2-3.4) [place] # (Auto) (0.1-0.6) Eos # (Auto) (0.0-0.7) Baso # (Auto) (0.0-2.0) K/mm3 Sodium 138 (132-148) mmol/L Potassium 3.9 (3.6-5.0) mmol/L Chloride 103 (98-107) mmol/L Carbon Dioxide 23 (21-33) mmol/L Anion Gap 16 (10-20) BUN 17 (7-21) mg/dL Creatinine 0.8 (0.7-1.2) mg/dl Est GFR ( Amer) > 60 Est GFR (Non-Af Amer) > 60 POC Glucose (mg/dL) (65-110) mg/dL Random Glucose 298 H (70-110) mg/dL Calcium 8.4 (8.4-10.5) mg/dL Phosphorus 2.9 (2.5-4.5) mg/dL Magnesium 1.7 (1.7-2.2) mg/dL Total Bilirubin (0.2-1.3) mg/dL AST (14-36) U/L ALT (7-56) U/L Alkaline Phosphatase (38-126) U/L NT-Pro-B Natriuret Pep 1750 H (0-450) pg/mL Total Protein (5.8-8.3) g/dL Albumin (3.0-4.8) g/dL Globulin gm/dL Albumin/Globulin Ratio (1.1-1.8) Triglycerides (35-160) mg/dL Cholesterol (130-200) mg/dL LDL Cholesterol Direct (0-129) mg/dL HDL Cholesterol (29-60) mg/dL Procalcitonin 0.09 L (0.19-0.49) NG/ML Free T4 (0.78-2.19) ng/dL TSH 3rd Generation (0.46-4.68) mIU/mL Digoxin 6.2 H* (0.8-2.0) ng/mL Influenza Typ A,B (EIA) (NEGATIVE) 08/09/17 Range/Units 09:30 WBC (4.5-11.0) 10^3/ul RBC (3.5-6.1) 10^6/uL Hgb (12.0-16.0) g/dL Hct (36.0-48.0) % MCV (80.0-105.0) fl MCH (25.0-35.0) pg MCHC (31.0-37.0) g/dl RDW (11.5-14.5) % Plt Count (120.0-450.0) 10^3/uL MPV (7.0-11.0) fl Gran % (50.0-68.0) % Lymph % (Auto) (22.0-35.0) % [place] % (Auto) (1.0-6.0) % Eos % (Auto) (1.5-5.0) % Baso % (Auto) (0.0-3.0) % Gran # (1.4-6.5) Lymph # (Auto) (1.2-3.4) [place] # (Auto) (0.1-0.6) Eos # (Auto) (0.0-0.7) Baso # (Auto) (0.0-2.0) K/mm3 Sodium (132-148) mmol/L Potassium (3.6-5.0) mmol/L Chloride (98-107) mmol/L Carbon Dioxide (21-33) mmol/L Anion Gap (10-20) BUN (7-21) mg/dL Creatinine (0.7-1.2) mg/dl Est GFR ( Amer) Est GFR (Non-Af Amer) POC Glucose (mg/dL) (65-110) mg/dL Random Glucose (70-110) mg/dL Calcium (8.4-10.5) mg/dL Phosphorus (2.5-4.5) mg/dL Magnesium (1.7-2.2) mg/dL Total Bilirubin (0.2-1.3) mg/dL AST (14-36) U/L ALT (7-56) U/L Alkaline Phosphatase (38-126) U/L NT-Pro-B Natriuret Pep (0-450) pg/mL Total Protein (5.8-8.3) g/dL Albumin (3.0-4.8) g/dL Globulin gm/dL Albumin/Globulin Ratio (1.1-1.8) Triglycerides 253 H (35-160) mg/dL Cholesterol 137 (130-200) mg/dL LDL Cholesterol Direct 87 (0-129) mg/dL HDL Cholesterol 17 L (29-60) mg/dL Procalcitonin (0.19-0.49) NG/ML Free T4 (0.78-2.19) ng/dL TSH 3rd Generation (0.46-4.68) mIU/mL Digoxin (0.8-2.0) ng/mL Influenza Typ A,B (EIA) (NEGATIVE) Laboratory Results - last 24 hr 08/09/17 08/09/1718 09:30 09:40 09:40 WBC RBC Hgb Hct MCV MCH MCHC RDW Plt Count MPV Gran % Lymph % (Auto) [place] % (Auto) Eos % (Auto) Baso % (Auto) Gran # Lymph # (Auto) [place] # (Auto) Eos # (Auto) Baso # (Auto) Sodium 138 Potassium 3.9 Chloride 103 Carbon Dioxide 23 Anion Gap 16 BUN 17 Creatinine 0.8 Est GFR ( Amer) > 60 Est GFR (Non-Af Amer) > 60 POC Glucose (mg/dL) Random Glucose 298 H Calcium 8.4 Phosphorus 2.9 Magnesium 1.7 Total Bilirubin AST ALT Alkaline Phosphatase NT-Pro-B Natriuret Pep 1750 H Total Protein Albumin Globulin Albumin/Globulin Ratio Triglycerides 253 H Cholesterol 137 LDL Cholesterol Direct 87 HDL Cholesterol 17 L Procalcitonin 0.09 L Free T4 TSH 3rd Generation Digoxin Influenza Typ A,B (EIA) 08/09/17 08/09/17 08/09/17 09:40 09:40 10:14 WBC RBC Hgb Hct MCV MCH MCHC RDW Plt Count MPV Gran % Lymph % (Auto) [place] % (Auto) Eos % (Auto) Baso % (Auto) Gran # Lymph # (Auto) [place] # (Auto) Eos # (Auto) Baso # (Auto) Sodium Potassium Chloride Carbon Dioxide Anion Gap BUN Creatinine Est GFR ( Amer) Est GFR (Non-Af Amer) POC Glucose (mg/dL) 232 H Random Glucose Calcium Phosphorus Magnesium Total Bilirubin AST ALT Alkaline Phosphatase NT-Pro-B Natriuret Pep Total Protein Albumin Globulin Albumin/Globulin Ratio Triglycerides Cholesterol LDL Cholesterol Direct HDL Cholesterol Procalcitonin Free T4 0.53 L TSH 3rd Generation 3.76 Digoxin 6.2 H* Influenza Typ A,B (EIA) 08/09/17 08/09/17 08/09/17 11:23 16:34 18:29 WBC RBC Hgb Hct MCV MCH MCHC RDW Plt Count MPV Gran % Lymph % (Auto) [place] % (Auto) Eos % (Auto) Baso % (Auto) Gran # Lymph # (Auto) [place] # (Auto) Eos # (Auto) Baso # (Auto) Sodium Potassium Chloride Carbon Dioxide Anion Gap BUN Creatinine Est GFR ( Amer) Est GFR (Non-Af Amer) POC Glucose (mg/dL) 209 H 253 H Random Glucose Calcium Phosphorus Magnesium Total Bilirubin AST ALT Alkaline Phosphatase NT-Pro-B Natriuret Pep Total Protein Albumin Globulin Albumin/Globulin Ratio Triglycerides Cholesterol LDL Cholesterol Direct HDL Cholesterol Procalcitonin Free T4 TSH 3rd Generation Digoxin Influenza Typ A,B (EIA) Negative for flu a/b 08/09/17 08/10/17 08/10/17 22:15 05:50 05:50 WBC 5.8 RBC 4.42 Hgb 14.3 Hct 42.9 MCV 97.1 MCH 32.4 MCHC 33.3 RDW 13.6 Plt Count 188 MPV 12.3 H Gran % 61.1 Lymph % (Auto) 25.0 [place] % (Auto) 12.9 H Eos % (Auto) 0.7 L Baso % (Auto) 0.3 Gran # 3.51 Lymph # (Auto) 1.4 [place] # (Auto) 0.7 H Eos # (Auto) 0.0 Baso # (Auto) 0.02 Sodium 137 Potassium 4.0 Chloride 103 Carbon Dioxide 25 Anion Gap 12 BUN 15 Creatinine 0.7 Est GFR ( Amer) > 60 Est GFR (Non-Af Amer) > 60 POC Glucose (mg/dL) 234 H Random Glucose 225 H Calcium 8.6 Phosphorus 2.2 L Magnesium 1.8 Total Bilirubin 0.4 AST 82 H D ALT 96 H Alkaline Phosphatase 48 NT-Pro-B Natriuret Pep Total Protein 5.9 Albumin 3.2 Globulin 2.7 Albumin/Globulin Ratio 1.2 Triglycerides Cholesterol LDL Cholesterol Direct HDL Cholesterol Procalcitonin Free T4 TSH 3rd Generation Digoxin Influenza Typ A,B (EIA) 08/10/17 08:28 WBC RBC Hgb Hct MCV MCH MCHC RDW Plt Count MPV Gran % Lymph % (Auto) [place] % (Auto) Eos % (Auto) Baso % (Auto) Gran # Lymph # (Auto) [place] # (Auto) Eos # (Auto) Baso # (Auto) Sodium Potassium Chloride Carbon Dioxide Anion Gap BUN Creatinine Est GFR ( Amer) Est GFR (Non-Af Amer) POC Glucose (mg/dL) 196 H Random Glucose Calcium Phosphorus Magnesium Total Bilirubin AST ALT Alkaline Phosphatase NT-Pro-B Natriuret Pep Total Protein Albumin Globulin Albumin/Globulin Ratio Triglycerides Cholesterol LDL Cholesterol Direct HDL Cholesterol Procalcitonin Free T4 TSH 3rd Generation Digoxin Influenza Typ A,B (EIA) Fingerstick Blood Sugar Results: 234 Results Reviewed to Date: Yes Critical Care Progress Note - Prophylaxis GI Prophylaxis GI: Pepsid - Prophylaxis DVT Prophylaxis DVT: SCDs - Nutrition Nutrition: Nutrition Category Date Time Status Heart Healthy Diet [DIET] Diets 08/09/17 Lunch Ordered Assessment/Plan - Assessment and Plan (Free Text) Assessment: Patient is a 77 year old woman with PMHx of CAD (s/p PCI's), thyroid disease, HTN, IDDM, HL, COPD, paroxysmal A-fib (on Eliquis) and GERD, admitted to the ICU due to mild/early DKA, A-fib with RVR, acute gastroenteritis, transaminitis and lactic acidosis. Gap closed, and insulin drip was discontinued. Patient's HR is currently controlled on verapamil, dig and propanolol, Cardizem drip to be discontinued. Plan: Neuro- stable, alert and awake, speaking in full sentences. Pulm: stable, nasal cannula prn to maintain O2 sat above 90%. Cardio- RVR afib- now controlled with verapamil, digoxin and propanolol. Digixon level high, will hold dig on eliquis Cardiology following. h/o pulm htn RVSP 50. on Lipitor and asa. Endo: presented with DKA, which has resolved. continue Insulin sliding scale, fingerstick ACHS. and levemir 20 units hs. Carb controlled, heart healthy diet. Hyperthyroidism- on methimazole, repeat thyroid panel with normal tsh and low free t4 ID: Sepsis likely due to UTI- continue Rocephin Urine cx with gram negative pato pending. no growth on bcx. GI- Gastroenteritis- diarrhea resolved. tolerating po intake pepcid for gi prophylaxis. Transaminitis- abdominal u/s with fatty infiltration. Heme: stable, continue to monitor. Renal: stable, maintain euvolemia. phos low, will replete. DVT prophylaxis: on eliquis. Patient seen, examined and case discussed with the attending. - Date & Time Date: 08/10/17 Time: 12:30 <Moses Willett - Last Filed: 08/10/17 16:30> CCU Objective - Vital Signs / Intake & Output Vital Signs (Last 4 hours): Vital Signs Pulse Resp BP Pulse Ox 08/10/17 15:20 103 H 111/65 08/10/17 15:10 111 H 27 H 96 08/10/17 15:00 95 H 30 H 111/65 95 08/10/17 14:58 110/91 H 08/10/17 14:54 130 H 24 94 L 08/10/17 14:50 116 H 34 H 93 L 08/10/17 14:40 104 H 17 93 L 08/10/17 14:30 107 H 21 94 L 08/10/17 14:20 107 H 21 93 L 08/10/17 14:10 94 H 19 90 L 08/10/17 14:00 124 H 125/60 93 L 08/10/17 13:50 108 H 33 H 95 08/10/17 13:40 101 H 25 H 93 L 08/10/17 13:30 101 H 28 H 92 L 08/10/17 13:20 101 H 32 H 94 L 08/10/17 13:10 99 H 53 H 08/10/17 13:00 85 30 H 93 L 08/10/17 12:50 86 31 H 95 08/10/17 12:40 88 31 H 94 L 08/10/17 12:30 82 33 H 92 L Intake and Output (Last 8hrs): Intake & Output 08/10/17 08/10/17 08/10/17 06:59 14:59 22:59 Intake Total 100 Balance 100 Intake: IV 100 - Medications Active Medications: Active Medications Generic Name Dose Route Start Last Admin Trade Name Freq PRN Reason Stop Dose Admin Apixaban 5 mg 08/09/17 10:00 08/10/17 09:41 Eliquis PO 5 mg BID MIRNA Administration Protocol Aspirin 81 mg 08/09/17 10:00 08/10/17 09:41 Ecotrin PO 81 mg DAILY MIRNA Administration Atorvastatin Calcium 40 mg 08/09/17 22:00 08/09/17 22:18 Lipitor PO 40 mg HS MIRNA Administration Digoxin 0.125 mg 08/11/17 14:00 Digoxin PO 1400 MIRNA Famotidine 20 mg 08/09/17 22:00 08/09/17 22:18 Pepcid PO 20 mg HS MIRNA Administration Ceftriaxone Sodium 1 gm in 100 mls @ 100 mls/hr 08/09/17 10:00 08/10/17 09:42 Rocephin 1 Gram Ivpb IVPB 100 mls/hr DAILY MIRNA Administration Protocol Insulin Detemir 20 unit 08/09/17 11:00 08/09/17 22:17 Levemir SC 20 unit HS MIRNA Administration Insulin Human Regular 0 units 08/10/17 07:30 08/10/17 11:35 Humulin R High SC 4 units ACHS MIRNA Administration Protocol Methimazole 5 mg 08/09/17 10:00 08/10/17 09:41 Tapazole PO 5 mg DAILY MIRNA Administration Potassium Phos/Sodium Phos 1 pkt 08/10/17 10:00 08/10/17 09:42 Neutra-Phos PO 08/12/17 10:01 1 pkt BID MIRNA Administration Propranolol HCl 20 mg 08/09/17 10:00 08/10/17 15:20 Inderal PO 20 mg TID MIRNA Administration Verapamil HCl 40 mg 08/10/17 10:00 08/10/17 15:20 Calan Tab PO 40 mg TID MIRNA Administration Verapamil HCl 2.5 mg 08/10/17 09:23 Verapamil Inj IVP Q6H PRN for herat rate >130 Vitamin A 1 ea 08/09/17 10:51 Vitamin A & D Oint Ud Foilpak TOP BID PRN Dry skin - Patient Studies Lab Studies: Microbiology Studies 08/09/17 08:50 MRSA Culture (Admit) - Final Nose MRSA NOT DETECTED 08/09/17 06:00 Urine Culture - Preliminary Urine,Clean Catch Gram Negative Pato 08/09/17 09:40 Blood Culture - Preliminary Blood NO GROWTH AFTER 24 HOURS 08/09/17 09:30 Blood Culture - Preliminary Blood NO GROWTH AFTER 24 HOURS Lab Studies 08/10/17 08/10/17 08/10/17 Range/Units 12:21 08:28 07:00 WBC (4.5-11.0) 10^3/ul RBC (3.5-6.1) 10^6/uL Hgb (12.0-16.0) g/dL Hct (36.0-48.0) % MCV (80.0-105.0) fl MCH (25.0-35.0) pg MCHC (31.0-37.0) g/dl RDW (11.5-14.5) % Plt Count (120.0-450.0) 10^3/uL MPV (7.0-11.0) fl Gran % (50.0-68.0) % Lymph % (Auto) (22.0-35.0) % [place] % (Auto) (1.0-6.0) % Eos % (Auto) (1.5-5.0) % Baso % (Auto) (0.0-3.0) % Gran # (1.4-6.5) Lymph # (Auto) (1.2-3.4) [place] # (Auto) (0.1-0.6) Eos # (Auto) (0.0-0.7) Baso # (Auto) (0.0-2.0) K/mm3 Sodium (132-148) mmol/L Potassium (3.6-5.0) mmol/L Chloride (98-107) mmol/L Carbon Dioxide (21-33) mmol/L Anion Gap (10-20) BUN (7-21) mg/dL Creatinine (0.7-1.2) mg/dl Est GFR ( Amer) Est GFR (Non-Af Amer) POC Glucose (mg/dL) 225 H 196 H (65-110) mg/dL Random Glucose (70-110) mg/dL Hemoglobin A1c (4.2-6.5) % Calcium (8.4-10.5) mg/dL Phosphorus (2.5-4.5) mg/dL Magnesium (1.7-2.2) mg/dL Total Bilirubin (0.2-1.3) mg/dL AST (14-36) U/L ALT (7-56) U/L Alkaline Phosphatase (38-126) U/L Total Protein (5.8-8.3) g/dL Albumin (3.0-4.8) g/dL Globulin gm/dL Albumin/Globulin Ratio (1.1-1.8) Procalcitonin (0.19-0.49) NG/ML Digoxin 0.6 L (0.8-2.0) ng/mL Influenza Typ A,B (EIA) (NEGATIVE) 08/10/17 08/10/17 08/10/17 Range/Units 05:50 05:50 05:50 WBC 5.8 (4.5-11.0) 10^3/ul RBC 4.42 (3.5-6.1) 10^6/uL Hgb 14.3 (12.0-16.0) g/dL Hct 42.9 (36.0-48.0) % MCV 97.1 (80.0-105.0) fl MCH 32.4 (25.0-35.0) pg MCHC 33.3 (31.0-37.0) g/dl RDW 13.6 (11.5-14.5) % Plt Count 188 (120.0-450.0) 10^3/uL MPV 12.3 H (7.0-11.0) fl Gran % 61.1 (50.0-68.0) % Lymph % (Auto) 25.0 (22.0-35.0) % [place] % (Auto) 12.9 H (1.0-6.0) % Eos % (Auto) 0.7 L (1.5-5.0) % Baso % (Auto) 0.3 (0.0-3.0) % Gran # 3.51 (1.4-6.5) Lymph # (Auto) 1.4 (1.2-3.4) [place] # (Auto) 0.7 H (0.1-0.6) Eos # (Auto) 0.0 (0.0-0.7) Baso # (Auto) 0.02 (0.0-2.0) K/mm3 Sodium 137 (132-148) mmol/L Potassium 4.0 (3.6-5.0) mmol/L Chloride 103 (98-107) mmol/L Carbon Dioxide 25 (21-33) mmol/L Anion Gap 12 (10-20) BUN 15 (7-21) mg/dL Creatinine 0.7 (0.7-1.2) mg/dl Est GFR ( Amer) > 60 Est GFR (Non-Af Amer) > 60 POC Glucose (mg/dL) (65-110) mg/dL Random Glucose 225 H (70-110) mg/dL Hemoglobin A1c 10.3 H (4.2-6.5) % Calcium 8.6 (8.4-10.5) mg/dL Phosphorus 2.2 L (2.5-4.5) mg/dL Magnesium 1.8 (1.7-2.2) mg/dL Total Bilirubin 0.4 (0.2-1.3) mg/dL AST 82 H D (14-36) U/L ALT 96 H (7-56) U/L Alkaline Phosphatase 48 (38-126) U/L Total Protein 5.9 (5.8-8.3) g/dL Albumin 3.2 (3.0-4.8) g/dL Globulin 2.7 gm/dL Albumin/Globulin Ratio 1.2 (1.1-1.8) Procalcitonin (0.19-0.49) NG/ML Digoxin (0.8-2.0) ng/mL Influenza Typ A,B (EIA) (NEGATIVE) 08/09/17 08/09/17 08/09/17 Range/Units 22:15 18:29 16:34 WBC (4.5-11.0) 10^3/ul RBC (3.5-6.1) 10^6/uL Hgb (12.0-16.0) g/dL Hct (36.0-48.0) % MCV (80.0-105.0) fl MCH (25.0-35.0) pg MCHC (31.0-37.0) g/dl RDW (11.5-14.5) % Plt Count (120.0-450.0) 10^3/uL MPV (7.0-11.0) fl Gran % (50.0-68.0) % Lymph % (Auto) (22.0-35.0) % [place] % (Auto) (1.0-6.0) % Eos % (Auto) (1.5-5.0) % Baso % (Auto) (0.0-3.0) % Gran # (1.4-6.5) Lymph # (Auto) (1.2-3.4) [place] # (Auto) (0.1-0.6) Eos # (Auto) (0.0-0.7) Baso # (Auto) (0.0-2.0) K/mm3 Sodium (132-148) mmol/L Potassium (3.6-5.0) mmol/L Chloride (98-107) mmol/L Carbon Dioxide (21-33) mmol/L Anion Gap (10-20) BUN (7-21) mg/dL Creatinine (0.7-1.2) mg/dl Est GFR ( Amer) Est GFR (Non-Af Amer) POC Glucose (mg/dL) 234 H 253 H (65-110) mg/dL Random Glucose (70-110) mg/dL Hemoglobin A1c (4.2-6.5) % Calcium (8.4-10.5) mg/dL Phosphorus (2.5-4.5) mg/dL Magnesium (1.7-2.2) mg/dL Total Bilirubin (0.2-1.3) mg/dL AST (14-36) U/L ALT (7-56) U/L Alkaline Phosphatase (38-126) U/L Total Protein (5.8-8.3) g/dL Albumin (3.0-4.8) g/dL Globulin gm/dL Albumin/Globulin Ratio (1.1-1.8) Procalcitonin (0.19-0.49) NG/ML Digoxin (0.8-2.0) ng/mL Influenza Typ A,B (EIA) Negative for flu a/b (NEGATIVE) 08/09/17 Range/Units 09:40 WBC (4.5-11.0) 10^3/ul RBC (3.5-6.1) 10^6/uL Hgb (12.0-16.0) g/dL Hct (36.0-48.0) % MCV (80.0-105.0) fl MCH (25.0-35.0) pg MCHC (31.0-37.0) g/dl RDW (11.5-14.5) % Plt Count (120.0-450.0) 10^3/uL MPV (7.0-11.0) fl Gran % (50.0-68.0) % Lymph % (Auto) (22.0-35.0) % [place] % (Auto) (1.0-6.0) % Eos % (Auto) (1.5-5.0) % Baso % (Auto) (0.0-3.0) % Gran # (1.4-6.5) Lymph # (Auto) (1.2-3.4) [place] # (Auto) (0.1-0.6) Eos # (Auto) (0.0-0.7) Baso # (Auto) (0.0-2.0) K/mm3 Sodium (132-148) mmol/L Potassium (3.6-5.0) mmol/L Chloride (98-107) mmol/L Carbon Dioxide (21-33) mmol/L Anion Gap (10-20) BUN (7-21) mg/dL Creatinine (0.7-1.2) mg/dl Est GFR ( Amer) Est GFR (Non-Af Amer) POC Glucose (mg/dL) (65-110) mg/dL Random Glucose (70-110) mg/dL Hemoglobin A1c (4.2-6.5) % Calcium (8.4-10.5) mg/dL Phosphorus (2.5-4.5) mg/dL Magnesium (1.7-2.2) mg/dL Total Bilirubin (0.2-1.3) mg/dL AST (14-36) U/L ALT (7-56) U/L Alkaline Phosphatase (38-126) U/L Total Protein (5.8-8.3) g/dL Albumin (3.0-4.8) g/dL Globulin gm/dL Albumin/Globulin Ratio (1.1-1.8) Procalcitonin 0.09 L (0.19-0.49) NG/ML Digoxin (0.8-2.0) ng/mL Influenza Typ A,B (EIA) (NEGATIVE) Laboratory Results - last 24 hr 08/09/17 08/09/17 08/09/17 09:40 16:34 18:29 WBC RBC Hgb Hct MCV MCH MCHC RDW Plt Count MPV Gran % Lymph % (Auto) [place] % (Auto) Eos % (Auto) Baso % (Auto) Gran # Lymph # (Auto) [place] # (Auto) Eos # (Auto) Baso # (Auto) Sodium Potassium Chloride Carbon Dioxide Anion Gap BUN Creatinine Est GFR ( Amer) Est GFR (Non-Af Amer) POC Glucose (mg/dL) 253 H Random Glucose Hemoglobin A1c Calcium Phosphorus Magnesium Total Bilirubin AST ALT Alkaline Phosphatase Total Protein Albumin Globulin Albumin/Globulin Ratio Procalcitonin 0.09 L Digoxin Influenza Typ A,B (EIA) Negative for flu a/b 08/09/17 08/10/1718 22:15 05:50 05:50 WBC 5.8 RBC 4.42 Hgb 14.3 Hct 42.9 MCV 97.1 MCH 32.4 MCHC 33.3 RDW 13.6 Plt Count 188 MPV 12.3 H Gran % 61.1 Lymph % (Auto) 25.0 [place] % (Auto) 12.9 H Eos % (Auto) 0.7 L Baso % (Auto) 0.3 Gran # 3.51 Lymph # (Auto) 1.4 [place] # (Auto) 0.7 H Eos # (Auto) 0.0 Baso # (Auto) 0.02 Sodium 137 Potassium 4.0 Chloride 103 Carbon Dioxide 25 Anion Gap 12 BUN 15 Creatinine 0.7 Est GFR ( Amer) > 60 Est GFR (Non-Af Amer) > 60 POC Glucose (mg/dL) 234 H Random Glucose 225 H Hemoglobin A1c Calcium 8.6 Phosphorus 2.2 L Magnesium 1.8 Total Bilirubin 0.4 AST 82 H D ALT 96 H Alkaline Phosphatase 48 Total Protein 5.9 Albumin 3.2 Globulin 2.7 Albumin/Globulin Ratio 1.2 Procalcitonin Digoxin Influenza Typ A,B (EIA) 08/10/17 08/10/17 08/10/17 05:50 07:00 08:28 WBC RBC Hgb Hct MCV MCH MCHC RDW Plt Count MPV Gran % Lymph % (Auto) [place] % (Auto) Eos % (Auto) Baso % (Auto) Gran # Lymph # (Auto) [place] # (Auto) Eos # (Auto) Baso # (Auto) Sodium Potassium Chloride Carbon Dioxide Anion Gap BUN Creatinine Est GFR ( Amer) Est GFR (Non-Af Amer) POC Glucose (mg/dL) 196 H Random Glucose Hemoglobin A1c 10.3 H Calcium Phosphorus Magnesium Total Bilirubin AST ALT Alkaline Phosphatase Total Protein Albumin Globulin Albumin/Globulin Ratio Procalcitonin Digoxin 0.6 L Influenza Typ A,B (EIA) 08/10/17 12:21 WBC RBC Hgb Hct MCV MCH MCHC RDW Plt Count MPV Gran % Lymph % (Auto) [place] % (Auto) Eos % (Auto) Baso % (Auto) Gran # Lymph # (Auto) [place] # (Auto) Eos # (Auto) Baso # (Auto) Sodium Potassium Chloride Carbon Dioxide Anion Gap BUN Creatinine Est GFR ( Amer) Est GFR (Non-Af Amer) POC Glucose (mg/dL) 225 H Random Glucose Hemoglobin A1c Calcium Phosphorus Magnesium Total Bilirubin AST ALT Alkaline Phosphatase Total Protein Albumin Globulin Albumin/Globulin Ratio Procalcitonin Digoxin Influenza Typ A,B (EIA) Critical Care Progress Note - Nutrition Nutrition: Nutrition Category Date Time Status Heart Healthy Diet [DIET] Diets 08/09/17 Lunch Ordered Attending/Attestation - Attestation I have personally seen and examined this patient.: Yes I have fully participated in the care of the patient.: Yes I have reviewed all pertinent clinical information: Yes Notes (Text): 08/10/17 16:29 77 yo female with resolved DKA, now in afib with rvr-->much improved. cardizem drip is actively tapering down, on propranolol and cardizem PO. OOB to chair. comfortable, BP stable. Ok to downgrade to tele ccm time 40 min
--- NOTE | 2017-08-10 10:08 | PN ---
DATE: SUBJECTIVE: Patient has no complaints of any chest pain or shortness of breath. She says she had a good night last night. She has no headaches or dizziness. PHYSICAL EXAMINATION: VITAL SIGNS: Temperature is 98, pulse of 135, blood pressure 129/66, respirations is 17. GENERAL: The patient is lying in bed, flat, comfortable. HEENT: No oral lesion. Anicteric sclerae. Moist mucosa. NECK: No JVD, adenopathy, or thyromegaly. CARDIOVASCULAR: Tachycardic and irregular. LUNGS: Clear to auscultation bilaterally. No wheeze, rales, or rhonchi. ABDOMEN: Bowel sounds are positive, soft, nontender and nondistended. EXTREMITIES: No cyanosis, clubbing or edema. ASSESSMENT: 1. Atrial fibrillation with rapid rate. 2. Diabetes type 2, improving. 3. Hypertension. 4. Chronic obstructive pulmonary disease. 5. Dyslipidemia. 6. Obesity with body mass index of 31. 7. Coronary artery disease. 8. Hypothyroidism and hyperthyroidism. 9. Transaminitis. 10. Gastroenteritis. 11. Hypophosphatemia. PLAN: The patient is currently comfortable. Patient is on Cardizem, heart rate remains elevated. I did speak to Dr. Modi. The patient is being followed by Dr. Andrade. The patient is on anticoagulation for her atrial fibrillation. The patient had TSH that was done, which was normal. She had a history of having excess medications for thyroid and became hyperthyroid. Patient's phosphorus is mildly low. The patient has blood cultures and urine cultures that are pending. She is going to continue with her Eliquis for her atrial fibrillation. She is on Cardizem for her atrial fibrillation as well. Orally, she will need to be weaned off her IV Cardizem. Patient is on aspirin daily. She is on propranolol. She is going to continue with Levemir for her diabetes. She is on Lipitor for dyslipidemia. The patient is on Rocephin for antibiotics. She is on Tapazole for her hyperthyroidism. She is on a heart-healthy diet. She is going to have repeat blood work tomorrow if she is coded in the ICU. I will give her Neutra-Phos for low phosphorus. Tod Woodruff MD [facility] # [id number]
--- NOTE | 2017-08-10 13:23 | PN ---
DATE: 08/10/2017 REASON FOR CONSULTATION AND FOLLOWUP: AFib with rapid ventricular rate, shortness of breath, chronic atrial fibrillation, history of coronary artery disease, cardiac evaluation and management. SUBJECTIVE: The patient denies any chest pain, shortness of breath, or any palpitation. OBJECTIVE: GENERAL: Not in apparent distress. VITAL SIGNS: Temperature afebrile, heart rate 120, blood pressure 126/66. HEENT: PERRLA. Extraocular muscles intact. NECK: Supple. No carotid bruit. No thyromegaly. CHEST: Clear to auscultation. HEART: S1 and S2, regular. ABDOMEN: Soft. EXTREMITIES: Clubbing and cyanosis negative. LABORATORY DATA: Blood workup as follows: WBC 5.8, hemoglobin 14.3, hematocrit 42.9, and platelet count 188. Chemistry shows sodium 137, potassium 4, chloride 103, carbon dioxide 25, anion gap of 12. BUN 15, creatinine 0.7. Blood glucose 225. Calcium 8.6, phosphorus 2.2, magnesium 1.8. AST 82, ALT 97, total protein 5.9, albumin 3.2, albumin and globulin ratio 1.2. IMPRESSION: Atrial fibrillation with rapid ventricular rate, history of coronary artery disease, status post stent. Discussed with Dr. Andrade yesterday, telephone number [phone], who said that the patient's coronary artery disease is fairly stable. History of hyperthyroidism. Recent cardiac workup including echo was normal. The patient had a cardiac echocardiogram here done on 05/05/2017, that showed normal left ventricular function, normal limit mitral regurgitation, moderate right ventricular systolic pressure of 50, calculated ejection fraction of 50%. History of cardiac catheterization in [place] on 06/27/2012. Patent stent in left anterior descending and circumflex. Most recently, the patient had cardiac catheterization by Dr. Andrade, fairly stable. History of gastroesophageal reflux; history of lumbar spinal stenosis; history of atrial fibrillation, on anticoagulation; history of chronic obstructive pulmonary disease, being followed by Dr. [place]oba; history of obesity; history of osteoarthritis; history of peripheral neuropathy; history of irritable bowel syndrome; hypertension; cervical disk disease; allergic rhinitis; type 2 diabetes; admitted with atrial fibrillation with rapid ventricular rate. RECOMMENDATION: Continue anticoagulation with Eliquis 5 p.o. b.i.d. The patient is on Cardizem 3.41 switch over to verapamil p.o. and IV verapamil p.r.n. Yesterday, digoxin level was elevated at 6. Digoxin on hold. Repeat stat digoxin level pending. Possibly, digoxin was given and the patient's blood was drawn most likely, but we will follow the repeat digoxin level stat. Continue Inderal 20 mg p.o. t.i.d. The patient was at home sotalol. Once the rate is well controlled, we will resume back sotalol. We will follow with you. Supplement phosphate and we will follow with you. Repeat the lab in the morning. We will repeat the mag, phosphate level tomorrow as well as digoxin level. Thank you Dr. Woodruff for providing us the opportunity in taking care of the patient, Hawa Chavis. Gail Modi MD
[2017-08-10] MEDS: Insulin Detemir 100 units/ml Vial (Levemir) SC SCH (22:07)
[2017-08-11 06:58] LABS: BASO # 0.03 K/mm3 (0.0-2.0); BASO % 0.6 % (0.0-3.0); EOS % 0.2 % (1.5-5.0); GRAN # 3.11 (1.4-6.5); GRAN % 57.1 % (50.0-68.0); LYMPH # 1.6 (1.2-3.4); LYMPH % 29.6 % (22.0-35.0); MEAN CORPUSCULAR HEMOGLOBIN 32.6 pg (25.0-35.0); MEAN CORPUSCULAR HGB CONC 33.6 g/dl (31.0-37.0); MEAN PLATELET VOLUME 12.2 fl (7.0-11.0); MONO # 0.7 (0.1-0.6); MONO % 12.5 % (1.0-6.0); RBC 4.6 10^6/uL (3.5-6.1); RED CELL DISTRIBUTION WIDTH 13.6 % (11.5-14.5); WHITE BLOOD COUNT 5.4 10^3/ul (4.5-11.0)
[2017-08-11 07:32] LABS: BLOOD UREA NITROGEN 14 mg/dL (7-21); CALCIUM 8.7 mg/dL (8.4-10.5); GFR AFRICAN-AMERICAN > 60; GFR NON-AFRICAN AMERICAN > 60; MAGNESIUM 1.8 mg/dL (1.7-2.2)
[2017-08-11] MEDS ORDERED: Digoxin 500 mcg/2ml (0.5 mg/2ml) Inj IVP ONE (08:22)
[2017-08-11] MEDS: Insulin Reg-HIGH-Coverage SC SCH ×4 (08:57→21:44)
[2017-08-11] MEDS: methIMAzole 5 MG TAB PO SCH (09:46)
[2017-08-11] MEDS: cefTRIAXone 1 gm 1 GM/100 ML BAG IVPB SCH (09:47)
[2017-08-11] MEDS: Potassium & Sodium Phosphate PO SCH ×2 (09:47→19:06)
--- NOTE | 2017-08-11 11:33 | PN ---
DATE: SUBJECTIVE: Patient has no complaints of any chest pain, any shortness of breath, any headaches or dizziness. PHYSICAL EXAMINATION: VITAL SIGNS: Temperature is 98, pulse is 91, blood pressure is 88/49, respirations 20. GENERAL: The patient is lying in bed, flat, comfortable. HEENT: No oral lesion. Anicteric sclerae. Moist mucosa. NECK: No JVD, adenopathy, or thyromegaly. CARDIOVASCULAR: S1 and S2, regular. No murmurs, rubs, or gallops. LUNGS: Clear to auscultation bilaterally. No wheeze, rales, or rhonchi. ABDOMEN: Bowel sounds are positive, soft, nontender and nondistended. EXTREMITIES: No cyanosis, clubbing or edema. LABORATORY DATA: Labs have been reviewed. ASSESSMENT: 1. Atrial fibrillation with rapid rate, now improved. 2. Diabetes type 2. 3. Hypertension. 4. Chronic obstructive pulmonary disease. 5. Dyslipidemia. 6. Obesity with body mass index of 31. 7. Coronary artery disease. 8. Hypothyroidism with history of hyperthyroidism secondary to medication intoxication, now improved. 9. Transaminitis. 10. Gastroenteritis, resolved. 11. Hypophosphatemia. PLAN: The patient has improved heart rate. She is on verapamil and digoxin. She is being followed by Dr. Modi. The patient is also on apixaban anticoagulation and the patient is on propranolol, and she is going to continue with Lipitor for dyslipidemia. She was given phosphate replacement for her low phosphorus. She is on Rocephin for antibiotics. She is on Tapazole because of her history of hyperthyroidism. The patient is on a heart-healthy diet. better controlled. Hemoglobin A1c is uncontrolled. She is on insulin with Levemir in the evening . She is getting physical therapy. I will see if she can qualify for the Transitional Care Unit. Tod Woodruff MD
--- NOTE | 2017-08-11 12:19 | PN ---
DATE: CONSULTING PHYSICIAN: Gail Modi M.D. REASON FOR CONSULTATION: Followup atrial fibrillation with rapid ventricular rate, shortness of breath, chronic atrial fibrillation, history of coronary artery disease, cardiac evaluation and management. SUBJECTIVE: The patient denies any chest pain, shortness of breath, or any palpitation. Last night, she remained stable. This morning, her heart rate went up to 130. Denies any chest pain. PHYSICAL EXAMINATION: GENERAL: Not in apparent distress. VITAL SIGNS: As follows; temperature afebrile, heart rate 130, blood pressure 118/52. HEENT: PERRLA. Extraocular muscles intact. NECK: Supple. No carotid bruit or thyromegaly. CHEST: Clear to auscultation. HEART: S1 and S2, regular. ABDOMEN: Soft. EXTREMITIES: Clubbing and cyanosis, negative. LABORATORY DATA: Blood workup as follows: Digoxin 0.6, WBC 5.4, hemoglobin 15, hematocrit 44.6, platelet count 160. Chemistry showed sodium 136, potassium 4.0, chloride 106, carbon dioxide 20, anion gap of 13. BUN 14, creatinine 0.6. IMPRESSION: Atrial fibrillation chronic with rapid ventricular rate, history of coronary artery disease, history of stent. Discussed with Dr. Andrade, rv mechanic, telephone number [phone], who said that the coronary artery is fairly stable. History of hyperthyroidism. History of recent cardiac workup was normal. The patient had echocardiography on 05/05/2017, that showed normal left ventricular function, normal mitral valve, moderate right ventricular systolic pressure increased to 50, calculated ejection fraction 50%. History of cardiac catheterization in [place] on 06/27/2012: Patent stent in left anterior descending and circumflex. Most recent cardiac workup as per Dr. Andrade is fairly stable, stable coronaries. RECOMMENDATIONS: Continue anticoagulation. Eliquis increased. Increased verapamil to 80 mg daily. Her digoxin level was elevated. Most likely digoxin was given and blood was drawn. Repeat digoxin level was within therapeutic range. We will give one dose IV digoxin. Continue Inderal 20 mg p.o. t.i.d. If remained stable, we will transfer to telemetry. We will follow with you. Thank you, Dr. Woodruff, for providing us the opportunity in taking care of the patient, Hawa Chavis. Once the heart rate is stable, the patient can be discharged. Follow with Dr. Andrade. Gail Modi MD cc: Tod Woodruff M.D.
[2017-08-11] MEDS: Digoxin 125 mcg (0.125 mg) Tab PO SCH (13:17)
[2017-08-11] MEDS ORDERED: Azithromycin 500MG/NS 250ml 500 MG/250 ML BAG IVPB STA (17:53)
[2017-08-11] MEDS: Insulin Detemir 100 units/ml Vial (Levemir) SC SCH (21:48)
[2017-08-12] MEDS ORDERED: Nystatin 100,000 Units/gm Topical Pow(15 gm) TOP PRN (03:30)
[2017-08-12 05:41] LABS: BASO # 0.02 K/mm3 (0.0-2.0); BASO % 0.4 % (0.0-3.0); EOS % 0.6 % (1.5-5.0); GRAN # 2.42 (1.4-6.5); GRAN % 52.2 % (50.0-68.0); HEMOGLOBIN 13.5 g/dL (12.0-16.0); LYMPH # 1.5 (1.2-3.4); MEAN CELL VOLUME 96.5 fl (80.0-105.0); MEAN CORPUSCULAR HEMOGLOBIN 31.7 pg (25.0-35.0); MEAN CORPUSCULAR HGB CONC 32.8 g/dl (31.0-37.0); MEAN PLATELET VOLUME 12.2 fl (7.0-11.0); MONO # 0.7 (0.1-0.6); MONO % 14.8 % (1.0-6.0); RBC 4.26 10^6/uL (3.5-6.1); RED CELL DISTRIBUTION WIDTH 13.3 % (11.5-14.5); WHITE BLOOD COUNT 4.7 10^3/ul (4.5-11.0)
[2017-08-12 06:07] LABS: BLOOD UREA NITROGEN 12 mg/dL (7-21); GFR AFRICAN-AMERICAN > 60; GFR NON-AFRICAN AMERICAN > 60
[2017-08-12 06:08] LABS: CALCIUM 8.8 mg/dL (8.4-10.5)
[2017-08-12] MEDS: Insulin Reg-HIGH-Coverage SC SCH ×4 (07:27→21:44)
[2017-08-12] MEDS: Potassium & Sodium Phosphate PO SCH (09:23)
[2017-08-12] MEDS: methIMAzole 5 MG TAB PO SCH (09:24)
[2017-08-12] MEDS ORDERED: Cefpodoxime (Vantin) 200 mg Tab PO SCH (10:00)
[2017-08-12] MEDS: Digoxin 125 mcg (0.125 mg) Tab PO SCH (14:06)
--- NOTE | 2017-08-12 20:22 | PN ---
DATE: 08/12/2017 SUBJECTIVE: Ms. Chavis is a 77-year-old female admitted on 08/09 with atrial fibrillation, rapid heart rate. She is currently on ICU. The heart rate is controlled with current medications. Denies any chest pain. She walks a few steps with the PT today. She also had E. coli UTI, urosepsis, which is improved. Diabetes mellitus currently controlled with current medications. No chest pain, no shortness of breath. She was started on p.o. Vantin, developed nausea and vomiting after first dose. ALLERGIES: PENICILLIN, CLARITHROMYCIN. PAST SURGICAL HISTORY: None. PAST MEDICAL HISTORY: History of atrial fibrillation, hypertension, COPD, diabetes mellitus, dyslipidemia, hypothyroidism, dysrhythmia. CURRENT MEDICATIONS: Eliquis 5 mg p.o. b.i.d., aspirin 81 mg daily, Zithromax 250 daily, digoxin 0.125 mg daily, Pepcid 20 mg daily, Levemir 20 units at bedtime, sliding scale insulin, methimazole, Zofran p.r.n., verapamil p.o. t.i.d. vitamin A, Vantin. LABORATORY DATA: White count 4.7, hemoglobin 13.5, hematocrit 41.5, platelet count 135. Sodium 136, potassium 4.4, creatinine 0.7, glucose 88, calcium 8.8. INR 1.2. FAMILY HISTORY: Not contributory. PERSONAL HISTORY: Nonsmoker. No history of alcohol abuse. SOCIAL HISTORY: Lives at home. ASSESSMENT AND PLAN: 1. Atrial fibrillation, rapid heart rate, improved. 2. Urosepsis with Escherichia coli urinary tract infection. 3. Diabetes mellitus type 2. 4. Hypertension. 5. Monocytosis. PLAN: Heart rate is currently controlled with current medications and she will be transferred out of ICU to the regular tele floor. We will continue cardiac medication. Verapamil p.o. and IV p.r.n. She is on oral antibiotics with Zithromax. She did not tolerate Vantin. SHE HAS ALLERGY TO PENICILLIN. I will discontinue Vantin now. Continue Zithromax only. Continue anticoagulation with Eliquis 5 mg p.o. b.i.d. Continue current dose of insulin and digoxin 0.125 mg to continue. Tesha Cortes MD [facility] # [id number] [place]
[2017-08-12] MEDS: Insulin Detemir 100 units/ml Vial (Levemir) SC SCH (21:45)
[2017-08-13 06:33] LABS: BLOOD UREA NITROGEN 11 mg/dL (7-21); CALCIUM 8.8 mg/dL (8.4-10.5); GFR AFRICAN-AMERICAN > 60; GFR NON-AFRICAN AMERICAN > 60
[2017-08-13 06:34] LABS: BASO # 0.02 K/mm3 (0.0-2.0); BASO % 0.4 % (0.0-3.0); EOS # 0.1 (0.0-0.7); EOS % 1.2 % (1.5-5.0); GRAN # 2.75 (1.4-6.5); GRAN % 53.6 % (50.0-68.0); LYMPH # 1.7 (1.2-3.4); LYMPH % 33.7 % (22.0-35.0); MEAN CELL VOLUME 96.3 fl (80.0-105.0); MEAN CORPUSCULAR HEMOGLOBIN 32.3 pg (25.0-35.0); MEAN CORPUSCULAR HGB CONC 33.5 g/dl (31.0-37.0); MEAN PLATELET VOLUME 12.5 fl (7.0-11.0); MONO # 0.6 (0.1-0.6); MONO % 11.1 % (1.0-6.0); RBC 4.34 10^6/uL (3.5-6.1); RED CELL DISTRIBUTION WIDTH 13.1 % (11.5-14.5); WHITE BLOOD COUNT 5.1 10^3/ul (4.5-11.0)
[2017-08-13] MEDS: Insulin Reg-HIGH-Coverage SC SCH ×4 (08:15→21:56)
[2017-08-13] MEDS: methIMAzole 5 MG TAB PO SCH (09:16)
[2017-08-13] MEDS: Digoxin 125 mcg (0.125 mg) Tab PO SCH (14:05)
[2017-08-13 14:07] VITALS: PULSE 89
--- NOTE | 2017-08-13 17:06 | CP.PCM.PN ---
Subjective - Date & Time of Evaluation Date of Evaluation: 08/13/17 Time of Evaluation: 10:00 - Subjective Subjective: DATE: 08/12/2017 SUBJECTIVE: Ms. Chavis is a 77-year-old female admitted on 08/09 with atrial fibrillation, rapid heart rate. The heart rate is controlled with current medications. Denies any chest pain. She walks a few steps with the PT today. She also had E. coli UTI, urosepsis, which is improved. Diabetes mellitus currently controlled with current medications. No chest pain, no shortness of breath. She was started on p.o. Vantin, developed nausea and vomiting after first dose. Vantin was discontinued. Complaining of diarrhea since this morning . No abdominal pain. ALLERGIES: PENICILLIN, CLARITHROMYCIN. PAST SURGICAL HISTORY: None. PAST MEDICAL HISTORY: History of atrial fibrillation, hypertension, COPD, diabetes mellitus, dyslipidemia, hypothyroidism, dysrhythmia. CURRENT MEDICATIONS: Eliquis 5 mg p.o. b.i.d., aspirin 81 mg daily, Zithromax 250 daily, digoxin 0.125 mg daily, Pepcid 20 mg daily, Levemir 20 units at bedtime, sliding scale insulin, methimazole, Zofran p.r.n., verapamil p.o. t.i.d. vitamin A, Vantin. LABORATORY DATA: reviewed. FAMILY HISTORY: Not contributory. PERSONAL HISTORY: Nonsmoker. No history of alcohol abuse. SOCIAL HISTORY: Lives at home. ASSESSMENT AND PLAN: 1. Atrial fibrillation, rapid heart rate, improved. 2. Urosepsis with Escherichia coli urinary tract infection. 3. Diabetes mellitus type 2. 4. Hypertension. 5. leukocytosis 6. Diarrhea, r/o C-diff PLAN: Heart rate is currently controlled with current medications. . We will continue cardiac medication. Verapamil p.o. and IV p.r.n. She is on oral antibiotics with Zithromax. Continue Zithromax. Continue anticoagulation with Eliquis 5 mg p.o. b.i.d. Continue current dose of insulin and digoxin 0.125 mg to continue. stool for c-diff. Falagyl after stool collection. Blood counts stable. PT bedside. Tesha Cortes MD Objective - Vital Signs/Intake and Output Vital Signs (last 24 hours): Temp Pulse Resp BP Pulse Ox 97.1 F L 88 19 122/66 97 08/13/17 16:38 08/13/17 16:38 08/13/17 16:38 08/13/17 16:38 08/13/17 06:00 Intake and Output: 08/13/17 08/13/17 06:59 18:59 Intake Total 360 Output Total 400 Balance -40 - Medications Medications: Current Medications Apixaban (Eliquis) 5 mg PO BID [facility] PRN Reason: Protocol Last Admin: 08/13/17 09:15 Dose: 5 mg Aspirin (Ecotrin) 81 mg PO DAILY [facility] Last Admin: 08/13/17 09:15 Dose: 81 mg Atorvastatin Calcium (Lipitor) 40 mg PO HS [facility] Last Admin: 08/12/17 21:47 Dose: 40 mg Azithromycin (Zithromax) 250 mg PO DAILY [facility] PRN Reason: Protocol Stop: 08/15/17 23:59 Last Admin: 08/13/17 09:15 Dose: 250 mg Digoxin (Digoxin) 0.125 mg PO 1400 [facility] Last Admin: 08/13/17 14:05 Dose: 0.125 mg Famotidine (Pepcid) 20 mg PO HS [facility] Last Admin: 08/12/17 21:47 Dose: 20 mg Insulin Detemir (Levemir) 20 unit SC [facility] Last Admin: 08/12/17 21:45 Dose: Not Given Insulin Human Regular (Humulin R High) [address] [facility] PRN Reason: Protocol Last Admin: 08/13/17 12:30 Dose: 4 units Methimazole (Tapazole) 5 mg PO DAILY [facility] Last Admin: 08/13/17 09:16 Dose: 5 mg Nystatin (Nystop Topical Powder) 0 gm TOP TID PRN PRN Reason: Rash Ondansetron HCl (Zofran Inj) 4 mg IVP Q6H PRN PRN Reason: Nausea/Vomiting Propranolol HCl (Inderal) 20 mg PO TID [facility] Last Admin: 08/13/17 14:04 Dose: 20 mg Verapamil HCl (Verapamil Inj) 2.5 mg IVP Q6H PRN PRN Reason: for herat rate >130 Last Admin: 08/11/17 06:06 Dose: 2.5 mg Verapamil HCl (Calan Tab) 80 mg PO TID [facility] Last Admin: 08/13/17 14:04 Dose: 80 mg Vitamin A (Vitamin A & D Oint Ud Foilpak) 1 ea TOP BID PRN PRN Reason: Dry skin - Labs Labs: 08/13/17 06:00 08/13/17 06:00 PT 13.8 SECONDS (9.4-12.5) H 08/09/17 03:50 INR 1.21 (0.93-1.08) H 08/09/17 03:50 APTT 44.7 Seconds (25.1-36.5) H 08/09/17 03:50
--- NOTE | 2017-08-13 20:28 | CP.PCM.PN ---
Subjective - Date & Time of Evaluation Date of Evaluation: 08/13/17 Time of Evaluation: 20:27 - Subjective Subjective: Patient was seen at bedside. She has been resting now. Earlier I had ordered tylenol for her because she had complained of back pain/ arthritis. Medical record was reviewed. This 77 year old white woman was admitted with palpitation, diarrhoea, atrial fibrillation, uncontrolled DM. Has PMH of COPD, CAD, stent placement, HTN,HLD,obesity, IBS, OA, peripheral neuropathy, GERD, spinal stenosis(Lumbar), allergic rhinitis, Lumbar disc disease, hyperthyroidism, MR, pulmonary HTN,DM II, atrial fibrillation, allergy to PCN, shrimp, clarithromycin. Objective - Vital Signs/Intake and Output Vital Signs (last 24 hours): Temp Pulse Resp BP Pulse Ox 97.1 F L 78 19 122/66 97 08/13/17 16:38 08/13/17 18:00 08/13/17 16:38 08/13/17 16:38 08/13/17 06:00 - Medications Medications: Current Medications Apixaban (Eliquis) 5 mg PO BID [facility] PRN Reason: Protocol Last Admin: 08/13/17 17:15 Dose: 5 mg Aspirin (Ecotrin) 81 mg PO DAILY [facility] Last Admin: 08/13/17 09:15 Dose: 81 mg Atorvastatin Calcium (Lipitor) 40 mg PO HS [facility] Last Admin: 08/12/17 21:47 Dose: 40 mg Azithromycin (Zithromax) 250 mg PO DAILY [facility] PRN Reason: Protocol Stop: 08/15/17 23:59 Last Admin: 08/13/17 09:15 Dose: 250 mg Digoxin (Digoxin) 0.125 mg PO 1400 [facility] Last Admin: 08/13/17 14:05 Dose: 0.125 mg Famotidine (Pepcid) 20 mg PO HS [facility] Last Admin: 08/12/17 21:47 Dose: 20 mg Insulin Detemir (Levemir) 20 unit SC HS [facility] Last Admin: 08/12/17 21:45 Dose: Not Given Insulin Human Regular (Humulin R High) 0 units SC ACHS [facility] PRN Reason: Protocol Last Admin: 08/13/17 17:23 Dose: 2 units Methimazole (Tapazole) 5 mg PO DAILY [facility] Last Admin: 08/13/17 09:16 Dose: 5 mg Nystatin (Nystop Topical Powder) 0 gm TOP TID PRN PRN Reason: Rash Ondansetron HCl (Zofran Inj) 4 mg IVP Q6H PRN PRN Reason: Nausea/Vomiting Propranolol HCl (Inderal) 20 mg PO TID [facility] Last Admin: 08/13/17 17:15 Dose: 20 mg Verapamil HCl (Verapamil Inj) 2.5 mg IVP Q6H PRN PRN Reason: for herat rate >130 Last Admin: 08/11/17 06:06 Dose: 2.5 mg Verapamil HCl (Calan Tab) 80 mg PO TID [facility] Last Admin: 08/13/17 17:15 Dose: 80 mg Vitamin A (Vitamin A & D Oint Ud Foilpak) 1 ea TOP BID PRN PRN Reason: Dry skin - Labs Labs: 08/13/17 06:00 08/13/17 06:00 PT 13.8 SECONDS (9.4-12.5) H 08/09/17 03:50 INR 1.21 (0.93-1.08) H 08/09/17 03:50 APTT 44.7 Seconds (25.1-36.5) H 08/09/17 03:50 Micro Results 08/09/17 09:40 Blood Blood Culture - Preliminary NO GROWTH AFTER 4 DAYS 08/09/17 09:30 Blood Blood Culture - Preliminary NO GROWTH AFTER 4 DAYS 08/11/17 11:23 Stool C. difficile Antigen & Toxin A,B (M - Final 08/09/17 06:00 Urine,Clean Catch Urine Culture - Final Klebsiella Pneumoniae Ssp Pneu 08/09/17 08:50 Nose MRSA Culture (Admit) - Final MRSA NOT DETECTED Most Recent Lab Values WBC 5.1 10^3/ul (4.5-11.0) 08/13/17 06:00 RBC 4.34 10^6/uL (3.5-6.1) 08/13/17 06:00 Hgb 14.0 g/dL (12.0-16.0) 08/13/17 06:00 Hct 41.8 % (36.0-48.0) 08/13/17 06:00 MCV 96.3 fl (80.0-105.0) 08/13/17 06:00 MCH 32.3 pg (25.0-35.0) 08/13/17 06:00 MCHC 33.5 g/dl (31.0-37.0) 08/13/17 06:00 RDW 13.1 % (11.5-14.5) 08/13/17 06:00 Plt Count 141 10^3/uL (120.0-450.0) 08/13/17 06:00 MPV 12.5 fl (7.0-11.0) H 08/13/17 06:00 Gran % 53.6 % (50.0-68.0) 08/13/17 06:00 Lymph % (Auto) 33.7 % (22.0-35.0) 08/13/17 06:00 [place] % (Auto) 11.1 % (1.0-6.0) H 08/13/17 06:00 Eos % (Auto) 1.2 % (1.5-5.0) L 08/13/17 06:00 Baso % (Auto) 0.4 % (0.0-3.0) 08/13/17 06:00 Gran # 2.75 (1.4-6.5) 08/13/17 06:00 Lymph # (Auto) 1.7 (1.2-3.4) 08/13/17 06:00 [place] # (Auto) 0.6 (0.1-0.6) 08/13/17 06:00 Eos # (Auto) 0.1 (0.0-0.7) 08/13/17 06:00 Baso # (Auto) 0.02 K/mm3 (0.0-2.0) 08/13/17 06:00 PT 13.8 SECONDS (9.4-12.5) H 08/09/17 03:50 INR 1.21 (0.93-1.08) H 08/09/17 03:50 APTT 44.7 Seconds (25.1-36.5) H 08/09/17 03:50 pO2 27 mm/Hg (30-55) L 08/09/17 09:40 VBG pH 7.28 (7.32-7.43) L 08/09/17 09:40 VBG pCO2 53.0 (40-60) 08/09/17 09:40 VBG HCO3 24.9 mmol/l (21-28) 08/09/17 09:40 VBG Total CO2 26.5 mmol.L (22-28) 08/09/17 09:40 VBG O2 Sat (Calc) 55.2 % (40-65) 08/09/17 09:40 VBG Base Excess -2.6 mmol/L (0.0-2.0) L 08/09/17 09:40 VBG Potassium 4.0 mmol/L (3.6-5.2) 08/09/17 09:40 Sodium 135.0 mmol/L (132-148) 08/09/17 09:40 Chloride 102.0 mmol/L (98-107) 08/09/17 09:40 Glucose 328 mg/dl (65-105) H 08/09/17 09:40 Lactate 3.0 mmol/L (0.7-2.1) H 08/09/17 09:40 FiO2 21.0 % 08/09/17 09:40 Sodium 136 mmol/L (132-148) 08/13/17 06:00 Potassium 4.3 mmol/L (3.6-5.0) 08/13/17 06:00 Chloride 100 mmol/L (98-107) 08/13/17 06:00 Carbon Dioxide 28 mmol/L (21-33) 08/13/17 06:00 Anion Gap 12 (10-20) 08/13/17 06:00 BUN 11 mg/dL (7-21) 08/13/17 06:00 Creatinine 0.7 mg/dl (0.7-1.2) 08/13/17 06:00 Est GFR ( Amer) > 60 08/13/17 06:00 Est GFR (Non-Af Amer) > 60 08/13/17 06:00 POC Glucose (mg/dL) 236 mg/dL (65-110) H 08/13/17 21:23 Random Glucose 189 mg/dL (70-110) H 08/13/17 06:00 Hemoglobin A1c 10.3 % (4.2-6.5) H 08/10/17 05:50 Lactic Acid 1.8 mmol/L (0.7-2.1) 08/11/17 06:30 Calcium 8.8 mg/dL (8.4-10.5) 08/13/17 06:00 Phosphorus 3.0 mg/dL (2.5-4.5) 08/11/17 06:30 Magnesium 1.8 mg/dL (1.7-2.2) 08/11/17 06:30 Total Bilirubin 0.4 mg/dL (0.2-1.3) 08/10/17 05:50 AST 82 U/L (14-36) H D 08/10/17 05:50 ALT 96 U/L (7-56) H 08/10/17 05:50 Alkaline Phosphatase 48 U/L (38-126) 08/10/17 05:50 Lactate Dehydrogenase 768 U/L (333-699) H 08/09/17 03:50 Total Creatine Kinase 59 U/L (35-230) 08/09/17 03:50 Troponin I 0.02 ng/mL 08/09/17 03:50 NT-Pro-B Natriuret Pep 1750 pg/mL (0-450) H 08/09/17 09:40 Total Protein 5.9 g/dL (5.8-8.3) 08/10/17 05:50 Albumin 3.2 g/dL (3.0-4.8) 08/10/17 05:50 Globulin 2.7 gm/dL 08/10/17 05:50 Albumin/Globulin Ratio 1.2 (1.1-1.8) 08/10/17 05:50 Triglycerides 253 mg/dL (35-160) H 08/09/17 09:30 Cholesterol 137 mg/dL (130-200) 08/09/17 09:30 LDL Cholesterol Direct 87 mg/dL (0-129) 08/09/17 09:30 HDL Cholesterol 17 mg/dL (29-60) L 08/09/17 09:30 Procalcitonin 0.09 NG/ML (0.19-0.49) L 08/09/17 09:40 Free T4 0.53 ng/dL (0.78-2.19) L 08/09/17 09:40 TSH 3rd Generation 3.76 mIU/mL (0.46-4.68) 08/09/17 09:40 Venous Blood Potassium 4.0 mmol/L (3.6-5.2) 08/09/17 09:40 Urine Color Yellow (YELLOW) 08/09/17 06:00 Urine Appearance Cloudy (CLEAR) 08/09/17 06:00 Urine pH 6.0 (4.7-8.0) 08/09/17 06:00 Ur Specific [place] 1.015 (1.005-1.035) 08/09/17 06:00 Urine Protein Trace mg/dL (<30 mg/dL) H 08/09/17 06:00 Urine Glucose (UA) >=1000 mg/dL (NEGATIVE) 08/09/17 06:00 Urine Ketones Trace mg/dL (NEGATIVE) H 08/09/17 06:00 Urine Blood Trace-intact (NEGATIVE) H 08/09/17 06:00 Urine Nitrate Negative (NEGATIVE) 08/09/17 06:00 Urine Bilirubin Negative (NEGATIVE) 08/09/17 06:00 Urine Urobilinogen 0.2 E.U./dL (<1 E.U./dL) 08/09/17 06:00 Ur Leukocyte Esterase Small Rk/uL (NEGATIVE) H 08/09/17 06:00 Urine RBC 0 - 2 /hpf (0-2) 08/09/17 06:00 Urine WBC Tntc /hpf (0-6) 08/09/17 06:00 Ur Epithelial Cells 0 - 2 /hpf (0-5) 08/09/17 06:00 Urine Bacteria Many (NEG) 08/09/17 06:00 Digoxin 0.6 ng/mL (0.8-2.0) L 08/11/17 07:00 Influenza Typ A,B (EIA) Negative for flu a/b (NEGATIVE) 08/09/17 18:29 - Constitutional Appears: Well, No Acute Distress - Head Exam Head Exam: ATRAUMATIC, NORMAL INSPECTION, NORMOCEPHALIC - Eye Exam Eye Exam: Normal appearance - ENT Exam ENT Exam: Normal External Ear Exam - Neck Exam Neck Exam: Normal Inspection - Respiratory Exam Respiratory Exam: NORMAL BREATHING PATTERN - Cardiovascular Exam Cardiovascular Exam: absent: JVD - GI/Abdominal Exam GI & Abdominal Exam: absent: Distended - Rectal Exam Rectal Exam: Deferred - Exam Additional comments: Deferred. - Extremities Exam Extremities Exam: Normal Inspection - Back Exam Back Exam: NORMAL INSPECTION - Neurological Exam Additional comments: asleep. - Psychiatric Exam Psychiatric exam: Normal Affect, Normal Mood - Skin Skin Exam: Normal Color Assessment and Plan - Assessment and Plan (Free Text) Assessment: back pain. Lumbar disc disease. DM II. Pulmonary HTN. HTN. HLD. CAD. COPD. Hx of coronary stents placement. Obesity. OA. Irritable bowel syndrome. Hyperthyroidism. GERD. Spinal stenosis(Lumbar.) Allergic rhinitis. Multiple drug allergies. Plan: Tylenol 650 mg PO x 1. Continue present management.
[2017-08-13] MEDS: Insulin Detemir 100 units/ml Vial (Levemir) SC SCH (21:57)
[2017-08-13 23:27] VITALS: RESP 20
--- NOTE | 2017-08-13 23:57 | CP.PCM.PN ---
Subjective - Date & Time of Evaluation Date of Evaluation: 08/14/17 Time of Evaluation: 00:10 - Subjective Subjective: S:Nurse calls and tells that patient has had 3.1 second pause on monitor. She has no complaints. Denied chest pain, sob. Medical record was reviewed. O: Last Vital Signs 3 Temp 97.7 F 08/13/17 23:26 Pulse 63 08/14/17 02:00 Resp 20 08/13/17 23:26 BP 108/66 08/13/17 23:26 Pulse Ox 98 08/13/17 23:26 Stable. Not in distress. LUNGS:Normal breathing pattern. A: Sinus pause. P: Observation. May have to hold inderal and check digoxin level. Objective - Vital Signs/Intake and Output Vital Signs (last 24 hours): Temp Pulse Resp BP Pulse Ox 97.7 F 63 20 108/66 98 08/13/17 23:26 08/13/17 23:26 08/13/17 23:26 08/13/17 23:26 08/13/17 23:26 - Medications Medications: Current Medications Apixaban (Eliquis) 5 mg PO BID [facility] PRN Reason: Protocol Last Admin: 08/13/17 17:15 Dose: 5 mg Aspirin (Ecotrin) 81 mg PO DAILY [facility] Last Admin: 08/13/17 09:15 Dose: 81 mg Atorvastatin Calcium (Lipitor) 40 mg PO HS [facility] Last Admin: 08/13/17 21:57 Dose: 40 mg Azithromycin (Zithromax) 250 mg PO DAILY [facility] PRN Reason: Protocol Stop: 08/15/17 23:59 Last Admin: 08/13/17 09:15 Dose: 250 mg Digoxin (Digoxin) 0.125 mg PO 1400 [facility] Last Admin: 08/13/17 14:05 Dose: 0.125 mg Famotidine (Pepcid) 20 mg PO HS [facility] Last Admin: 08/13/17 21:57 Dose: 20 mg Insulin Detemir (Levemir) 20 unit SC HS [facility] Last Admin: 08/13/17 21:57 Dose: 20 unit Insulin Human Regular (Humulin R High) 0 units SC ACHS [facility] PRN Reason: Protocol Last Admin: 08/13/17 21:56 Dose: Not Given Methimazole (Tapazole) 5 mg PO DAILY [facility] Last Admin: 08/13/17 09:16 Dose: 5 mg Nystatin (Nystop Topical Powder) 0 gm TOP TID PRN PRN Reason: Rash Ondansetron HCl (Zofran Inj) 4 mg IVP Q6H PRN PRN Reason: Nausea/Vomiting Propranolol HCl (Inderal) 20 mg PO TID [facility] Last Admin: 08/13/17 17:15 Dose: 20 mg Verapamil HCl (Verapamil Inj) 2.5 mg IVP Q6H PRN PRN Reason: for herat rate >130 Last Admin: 08/11/17 06:06 Dose: 2.5 mg Verapamil HCl (Calan Tab) 80 mg PO TID [facility] Last Admin: 08/13/17 17:15 Dose: 80 mg Vitamin A (Vitamin A & D Oint Ud Foilpak) 1 ea TOP BID PRN PRN Reason: Dry skin - Labs Labs: 08/13/17 06:00 08/13/17 06:00 PT 13.8 SECONDS (9.4-12.5) H 08/09/17 03:50 INR 1.21 (0.93-1.08) H 08/09/17 03:50 APTT 44.7 Seconds (25.1-36.5) H 08/09/17 03:50
[2017-08-14 05:30] VITALS: TEMP 97.8; O2SAT 99
[2017-08-14 07:34] LABS: HEMOGLOBIN 13.5 g/dL (12.0-16.0); MEAN CELL VOLUME 96.2 fl (80.0-105.0); MEAN CORPUSCULAR HEMOGLOBIN 32.1 pg (25.0-35.0); MEAN CORPUSCULAR HGB CONC 33.3 g/dl (31.0-37.0); MEAN PLATELET VOLUME 12.3 fl (7.0-11.0); RBC 4.21 10^6/uL (3.5-6.1); WHITE BLOOD COUNT 3.9 10^3/ul (4.5-11.0)
[2017-08-14 07:48] LABS: ALB/GLOB RATIO 1.2 (1.1-1.8); ALBUMIN 3.1 g/dL (3.0-4.8); ALT/SGPT 63 U/L (7-56); AST/SGOT 36 U/L (14-36); BLOOD UREA NITROGEN 13 mg/dL (7-21); CALCIUM 8.9 mg/dL (8.4-10.5); GFR AFRICAN-AMERICAN > 60; GFR NON-AFRICAN AMERICAN > 60; MAGNESIUM 1.6 mg/dL (1.7-2.2)
[2017-08-14] MEDS: Insulin Reg-HIGH-Coverage SC SCH (08:01)
[2017-08-14] MEDS ORDERED: Magnesium Sulfate 2 GM in Sodium Chloride 0.9% 100 ML IV ONE (08:45)
[2017-08-14] MEDS: methIMAzole 5 MG TAB PO SCH (09:33)
[2017-08-14 09:40] VITALS: BP 129/86
[2017-08-14 10:08] VITALS: PULSE 116
--- NOTE | 2017-08-14 14:08 | PN ---
DATE: REASON FOR THE CONSULTATION AND FOLLOWUP: Chronic atrial fibrillation, rapid ventricular rate. He has COPD, history of chronic atrial fibrillation and coronary artery disease. Multiple pauses; on digoxin, verapamil and beta-titi. SUBJECTIVE: The patient feels a lot better. Denies any chest pain, shortness of breath or any palpitations. PHYSICAL EXAMINATION GENERAL: The patient is not in apparent distress. VITAL SIGNS: Temperature afebrile, heart rate 83, blood pressure 145/91. HEENT: PERRLA. Intact. NECK: Supple. No carotid bruit or thyromegaly. CHEST: Clear to auscultation. HEART: S1 and S2 regular. ABDOMEN: Soft. EXTREMITIES: Clubbing and cyanosis negative. LABORATORY DATA: Blood workup as follows: WBC 3.9, hemoglobin 13.5, hematocrit 40.5, platelet count 143,000. Chemistry shows sodium 135, potassium 4.5, chloride 99, carbon dioxide 27, anion gap of 13. BUN 13, creatinine 0.7, magnesium 1.6. IMPRESSION 1. History of coronary artery disease, obesity and chronic atrial fibrillation with rapid rate, now rate is well controlled with multiple pauses. The patient is on beta titi, digoxin, and verapamil. Discussed with Dr. Andrade, corporate planner on telephone number [phone] who said that coronary artery is fairly stable. 2. History of hyperthyroidism. 3. History of recent cardiac workup. Echo here on 05/05/2017 shows normal LV function, normal mitral valve, moderate right ventricular systolic pressure is increased to 50. 4. Hsis-ic-mbvflvxe pulmonary hypertension. 5. History of cardiac catheterization in [place] on 06/27/2012, patent stent. The patient's recent cardiac catheterization with Dr. Andrade is essentially negative. RECOMMENDATIONS: Continue Eliquis. We will hold digoxin today and discontinue propranolol. We will do stat digoxin level today. Further recommendations depended on the hospital course. We will follow with you. Thank you Dr. Woodruff for providing us the opportunity in taking care of the patient. We will hold transfer to tele today. If she remains stable, we will transfer to tele. We will send a stat digoxin level. We will get EKG to assess the heart rate. We will supplement magnesium. Gail Modi MD [facility] # [id number]
--- NOTE | 2017-08-15 05:08 | DS ---
HISTORY OF PRESENT ILLNESS: This is a 77-year-old female who had come into the hospital after she was found to have atrial fibrillation with rapid rate. She was placed on IV Cardizem and then switched over to p.o. The patient had improvement of her heart rate. She has no complaints of any chest pain. No shortness of breath. No headaches or dizziness. The patient was seen by the house doctor overnight because of a pause of 30.1 second on the monitor. The patient is being followed by Cardiology. She was also given Tylenol overnight by the house doctor. She was to be discharged to the transitional care unit, but did not wish to go. I tried to convince her today. If she decides to go, we will discharge her to the transitional care unit; otherwise, the patient will be sent home. I did advise her that the transitional care unit is the best option in order to get stronger, so can be more independent. PHYSICAL EXAMINATION: VITAL SIGNS: Temperature is 97.8, pulse of 81, blood pressure is 145/91, respirations 20, O2 saturation 99%. GENERAL: The patient is lying in bed, flat, comfortable. HEENT: No oral lesion. Anicteric sclerae. Moist mucosa. NECK: No JVD, adenopathy, or thyromegaly. CARDIOVASCULAR: S1 and S2, regular. No murmurs, rubs, or gallops. LUNGS: Clear to auscultation bilaterally. No wheeze, rales, or rhonchi. ABDOMEN: Bowel sounds are positive, soft, nontender and nondistended. EXTREMITIES: No cyanosis, clubbing or edema. ASSESSMENT: 1. Atrial fibrillation with rapid rate, now resolved. 2. Diabetes type 2. 3. Hypertension. 4. Chronic obstructive pulmonary disease. 5. Dyslipidemia. 6. Obesity with a BMI of 31. 7. History of hypothyroidism with hyperthyroidism secondary to medication intoxication, now resolved. 8. Transaminitis, improved. 9. Gastroenteritis, improved. 10. Hypophosphatemia, improved. PLAN: The patient is currently comfortable. She is on Eliquis for her anticoagulation. She is on aspirin daily. She is on digoxin. The patient is receiving Pepcid. She is on methimazole for her hyperthyroidism. The patient is on Zofran. She is on a heart-healthy diet. Discharged to the transitional care unit. CONDITION: Stable. Tod Woodruff MD [facility] # [id number]
== END 2017-08-14 11:47 | DRG 308 ==
LOC: ED 03:19 → ERH 05:57 → ICU 07:53 → 2RNO 08-12 17:01
PROVIDERS: ADMIT Internal Medicine Nephrology; ATTEND Internal Medicine Nephrology
DX: I48.0 Paroxysmal atrial fibrillation (principal); E11.10 Type 2 diabetes mellitus with ketoacidosis without coma; E11.42 Type 2 diabetes mellitus with diabetic polyneuropathy; I27.20 Pulmonary hypertension, unspecified; E83.39 Other disorders of phosphorus metabolism; E05.80 Other thyrotoxicosis without thyrotoxic crisis or storm; N39.0 Urinary tract infection, site not specified; J44.9 Chronic obstructive pulmonary disease, unspecified; I10 Essential (primary) hypertension; E78.5 Hyperlipidemia, unspecified; I25.10 Atherosclerotic heart disease of native coronary artery without angina pectoris; K52.9 Noninfective gastroenteritis and colitis, unspecified; K21.9 Gastro-esophageal reflux disease without esophagitis; E03.9 Hypothyroidism, unspecified; M48.061 Spinal stenosis, lumbar region without neurogenic claudication; I48.2 Chronic atrial fibrillation; Z79.01 Long term (current) use of anticoagulants; J30.9 Allergic rhinitis, unspecified; T38.1X5A Adverse effect of thyroid hormones and substitutes, initial encounter; E66.9 Obesity, unspecified; Z68.31 Body mass index [BMI] 31.0-31.9, adult; Z77.22 Contact with and (suspected) exposure to environmental tobacco smoke (acute) (chronic); Z79.4 Long term (current) use of insulin; Z95.5 Presence of coronary angioplasty implant and graft; Z88.0 Allergy status to penicillin

== ENCOUNTER 2017-08-14 11:50 | Inpatient (IN) | payer OTHER, MEDICARE ==
[2017-08-14 13:14] VITALS: BMI 29.9
[2017-08-14] MEDS ORDERED: Nystatin 100,000 Units/gm Topical Pow(15 gm) TOP PRN (13:23)
[2017-08-14] MEDS ORDERED: Vitamins A & D Oint UD Foilpak TOP PRN (13:23)
[2017-08-14] MEDS ORDERED: Digoxin 125 mcg (0.125 mg) Tab PO SCH (14:00)
[2017-08-14] MEDS: Levalbuterol 0.63 MG/3 ML Inhal Soln UD IH PRN (15:42)
[2017-08-14] MEDS: Insulin Reg-HIGH-Coverage SC SCH ×2 (17:27→22:05)
[2017-08-14] MEDS: Insulin Detemir 100 units/ml Vial (Levemir) SC SCH (22:05)
[2017-08-15] MEDS: Insulin Reg-HIGH-Coverage SC SCH ×4 (06:52→21:55)
[2017-08-15] MEDS: Levalbuterol 0.63 MG/3 ML Inhal Soln UD IH PRN (07:34)
[2017-08-15] MEDS: methIMAzole 5 MG TAB PO SCH (10:30)
[2017-08-15] MEDS: Digoxin 125 mcg (0.125 mg) Tab PO SCH (13:18)
--- NOTE | 2017-08-15 19:39 | PN ---
DATE: SUBJECTIVE: Patient has no complaints of any chest pain, shortness of breath, headache, or dizziness. Please see the admission H and P that I have reviewed and I agreed with. PHYSICAL EXAMINATION: VITAL SIGNS: Temperature is 97.6, pulse is 97, blood pressure 132/78, respirations 18. GENERAL: Patient is lying in bed, flat, comfortable. HEENT: No oral lesion. Anicteric sclerae. Moist mucosa. NECK: No JVD, adenopathy, or thyromegaly. CARDIOVASCULAR: Irregular. No murmurs, rubs, or gallops. LUNGS: Clear to auscultation bilaterally. No wheeze, rales, or rhonchi. ABDOMEN: Bowel sounds are positive, soft, nontender, and nondistended. EXTREMITIES: no cyanosis, clubbing, or edema. ASSESSMENT: 1. Atrial fibrillation, on Eliquis for anticoagulation. 2. Diabetes type 2. 3. Hypertension. 3. Chronic obstructive pulmonary disease. 4. Dyslipidemia. 5. Obesity with a body mass index of 31. 6. Hypothyroidism with hyperthyroidism secondary to medication intoxication, now resolved. 7. Transaminitis, resolved. 8. Gastroenteritis, improved. 9. Hypophosphatemia, improved. PLAN: The patient is currently comfortable. She is on her verapamil 80 mg t.i.d. for her atrial fibrillation. She is on aspirin daily. She is going to continue the apixaban. She is on Levemir for her diabetes. She is on Lipitor for dyslipidemia. The patient is on methimazole for her hyperthyroidism. She is on azithromycin; she finished her antibiotics; I will discontinue her azithromycin at this point. We will continue following her in transitional care unit. Tod Woodruff MD
[2017-08-15] MEDS: Insulin Detemir 100 units/ml Vial (Levemir) SC SCH (21:49)
--- NOTE | 2017-08-15 23:11 | CON ---
DATE: 08/15/2017 REASON FOR THE CONSULTATION AND FOLLOWUP: Continuity of care in the transitional care unit; cardiac evaluation; history of CAD; history of atrial fibrillation, chronic; acute bronchitis. BRIEF CLINICAL HISTORY: This is a 77-year-old female with past medical history significant for coronary artery disease, status post multiple angioplasty, being followed by Dr. Andrade and Dr. Kaur Khan's group and Dr. Mccain at [facility], history of chronic atrial fibrillation on anticoagulation, admitted with AFib with rapid ventricular rate, acute bronchitis. The patient stayed initially in the floor and now transferred to transitional care unit for the continuity of care. The patient denies any chest pain, shortness of breath or any palpitations. PAST MEDICAL HISTORY: Significant for COPD, history of coronary artery disease, history of PTCA stent in [place], most recently catheterization 2 years ago at [facility] found to be negative. Recent echo dated 05/18/2017 showed normal LV function, within normal RV systolic pressure of 50, calculated ejection fraction of 50.3, called and spoke to Dr. Andrade, who says that recently he had a cardiac catheterization; he says it was fairly stable. The patient was initially treated with p.o. verapamil and rate is fairly stable and transferred to transitional care unit for continuity of care. Denies any chest pain, shortness of breath or any palpitation. CURRENT MEDICATIONS: The patient is taking verapamil 80 mg 3 times a day, digoxin, aspirin, apixaban, insulin, nystatin, methimazole, azithromycin. REVIEW OF SYSTEMS: As per HPI. PHYSICAL EXAMINATION: VITAL SIGNS: Temperature afebrile, heart rate 109, blood pressure 142/89. HEENT: PERRLA. Intact. NECK: Supple. No carotid bruit or thyromegaly. CHEST: Clear to auscultation. HEART: S1 and S2 regular. ABDOMEN: Soft. EXTREMITIES: Clubbing and cyanosis negative. LABORATORY DATA: Blood workup pending. IMPRESSION: Obesity, history of coronary artery disease, status post multiple percutaneous transluminal coronary angioplasties, last catheterization is fairly stable, admitted with atrial fibrillation with rapid ventricular rate, being followed by Dr. Andrade. Also had a history of hyperthyroidism, history of most recent cardiac workup, echo shows normal left ventricular function and normal mitral valve, moderate right ventricular systolic pressure, increased right ventricular systolic pressure of 50, wecx-he-[id number] pulmonary hypertension, history of cardiac catheterization on 06/27/2012 here, patent stent. Recent cath by Dr. Andrade is essentially negative with patent stent, fairly stable coronaries as per Dr. Andrade. RECOMMENDATIONS: Continue Eliquis. Continue verapamil, continue digoxin from today, continue rehab, continue antibiotic. We will continue Zithromax until Monday. Thank you Dr. Woodruff for providing us the opportunity in taking care of the patient, Hawa Chavis. We will follow with you. Gail Modi MD
[2017-08-16] MEDS: Insulin Reg-HIGH-Coverage SC SCH ×4 (06:48→22:59)
[2017-08-16] MEDS: methIMAzole 5 MG TAB PO SCH (10:12)
--- NOTE | 2017-08-16 10:53 | PN ---
DATE: SUBJECTIVE: The patient has no complaints of any chest pain. No shortness of breath or headaches or dizziness. She is feeling comfortable. She has no pain. PHYSICAL EXAMINATION VITAL SIGNS: Temperature is 98, pulse of 62, blood pressure is 113/60, respirations 18. GENERAL: The patient is lying in bed, flat, comfortable. HEENT: No oral lesion. Anicteric sclerae. Moist mucosa. NECK: No JVD, adenopathy, or thyromegaly. CARDIOVASCULAR: S1 and S2, regular. No murmurs, rubs, or gallops. LUNGS: Clear to auscultation bilaterally. No wheeze, rales, or rhonchi. ABDOMEN: Bowel sounds are positive. Soft, nontender and nondistended. EXTREMITIES: No cyanosis, clubbing or edema. ASSESSMENT 1. Atrial fibrillation, on Eliquis, for anticoagulation. 2. Diabetes type 2. 3. Hypertension. 4. Chronic obstructive pulmonary disease. 5. Dyslipidemia. 6. Obesity with a body mass index of 31. 7. Hypothyroidism with hyperthyroidism secondary to medication intoxication, now resolved. 8. Transaminitis. 9. Hypophosphatemia, improved. 10. Gastroenteritis, resolved. PLAN: The patient is currently on digoxin, she is going to continue with her verapamil, she is on Eliquis for her anticoagulation. The patient is on Lipitor for dyslipidemia, is on Tapazole. She is on Xopenex as needed. She is on a heart-healthy diet. Tod Woodruff MD
[2017-08-16] MEDS: Digoxin 125 mcg (0.125 mg) Tab PO SCH (14:46)
[2017-08-16] MEDS: Levalbuterol 0.63 MG/3 ML Inhal Soln UD IH PRN (16:09)
--- NOTE | 2017-08-16 16:24 | PN ---
DATE: 08/16/2017 LOCATION: Patient in room 313, bed 1. REASON FOR CONSULTATION AND FOLLOWUP: History of coronary artery disease, atrial fibrillation, acute bronchitis. SUBJECTIVE: Patient still complains of cough. Denies any chest pain or palpitation. PHYSICAL EXAMINATION: VITAL SIGNS: Blood pressure 167/85 and yesterday, blood pressure was 113/60; respirations 20; pulse 68; temperature 98.3. HEENT: Head is normocephalic. Eyes: Pupils normal, conjunctivae normal. Nose and throat: Normal. NECK: JVP is low. Carotids equal. THORAX: AP diameter normal. LUNGS: No significant rales. CARDIOVASCULAR: S1, S2. ABDOMEN: Soft, nontender. No organomegaly. EXTREMITIES: No clubbing, no cyanosis. LABORATORY DATA: Fingerstick sugar 206. Other labs are done on the medical floor and they are reported in our previous notes on the medical floor. DIAGNOSES: Coronary artery disease, status post multiple angioplasty and stent insertion; atrial fibrillation; history of hyperthyroidism. Most recent cardiac workup, echo showed normal left ventricular function, right ventricular systolic pressure 50 mmHg, [id number] pulmonary hypertension. History of cardiac catheterization on 06/27/2012, which showed patent stents. Recent cath by Dr. Andrade is essentially negative with patent stent as per Dr. Andrade. Patient follow with Dr. Andrade in [place] from cardiac point of view, deconditioning. PLAN: Patient on verapamil 80 mg t.i.d., digoxin 0.125 daily, Eliquis 5 b.i.d., insulin as ordered, Lipitor 40 daily, Pepcid 20 at bedtime, Tapazole 5 mg daily, Xopenex p.r.n. Patient getting physical therapy. Patient also on Ecotrin 81 mg daily. We will continue present therapy. We will follow. Gail Felder MD
[2017-08-16] MEDS: Insulin Detemir 100 units/ml Vial (Levemir) SC SCH (22:39)
[2017-08-17] MEDS: Insulin Reg-HIGH-Coverage SC SCH ×4 (06:48→22:01)
[2017-08-17] MEDS: methIMAzole 5 MG TAB PO SCH (09:27)
--- NOTE | 2017-08-17 11:09 | PN ---
DATE: SUBJECTIVE: Patient has no complaints of any chest pain. No shortness of breath. No headaches or dizziness. PHYSICAL EXAMINATION: VITAL SIGNS: Temperature is 97.8, pulse of 64, blood pressure is 144/76, respirations 20 GENERAL: The patient is lying in bed, flat, comfortable. HEENT: No oral lesion. Anicteric sclerae. Moist mucosa. NECK: No JVD, adenopathy, or thyromegaly. CARDIOVASCULAR: S1 and S2, regular. No murmurs, rubs, or gallops. LUNGS: Clear to auscultation bilaterally. No wheeze, rales, or rhonchi. ABDOMEN: Bowel sounds are positive, soft, nontender and nondistended. EXTREMITIES: No cyanosis, clubbing or edema. ASSESSMENT: 1. Atrial fibrillation, on Eliquis. 2. Diabetes type 2. 3. Hypertension. 4. Chronic obstructive pulmonary disease. 5. Dyslipidemia. 6. Obesity with a body mass index of 31. 7. 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 PLAN: The patient is currently comfortable. She is on aspirin daily. She is receiving Eliquis for her anticoagulation. She is on Levemir for diabetes. She is on Lipitor for dyslipidemia. She is on Tapazole. She is going to continue with a heart-healthy diet. Tod Woodruff MD
[2017-08-17] MEDS: Digoxin 125 mcg (0.125 mg) Tab PO SCH (14:14)
--- NOTE | 2017-08-17 19:27 | PN ---
DATE: 08/17/2017 REASON FOR CONSULTATION AND FOLLOWUP: History of coronary artery disease, atrial fibrillation, acute bronchitis. SUBJECTIVE: Patient denies any chest pain, but still complaining of some coughing. No chest pain, no shortness of breath, no palpitation. OBJECTIVE: GENERAL: Not in apparent distress. VITAL SIGNS: As follows: Temperature afebrile, heart rate 64, blood pressure 144/76. HEENT: PERRLA. Extraocular muscles intact. NECK: Supple. No carotid bruit or thyromegaly. CHEST: Clear to auscultation. HEART: S1, S2 regular. ABDOMEN: Soft. EXTREMITIES: Clubbing and cyanosis negative. LABORATORY DATA: Blood workup as follows: Fingerstick 175. IMPRESSION: Acute bronchitis; history of chronic atrial fibrillation, now current rate is well controlled; history of coronary artery disease, status post multiple stents. Echo shows preserved left ventricular function, left ventricular systolic pressure of 50, [id number] pulmonary hypertension. History of cardiac catheterization, 06/27/2012, which shows patent stent. Recent cath by Dr. Andrade, coronary artery study stable. RECOMMENDATION: Continue verapamil 80 mg t.i.d., continue digoxin, continue 81 mg of baby aspirin, continue atorvastatin, continue methimazole, continue Eliquis 5 p.o. b.i.d. CVA status is stable. Thank you, Dr. Woodruff, for providing us the opportunity in taking care of the patient, [place]. Gail Modi MD
[2017-08-17] MEDS: Insulin Detemir 100 units/ml Vial (Levemir) SC SCH (22:01)
[2017-08-18] MEDS: Insulin Reg-HIGH-Coverage SC SCH ×4 (06:38→21:16)
[2017-08-18] MEDS: methIMAzole 5 MG TAB PO SCH (10:42)
--- NOTE | 2017-08-18 13:10 | PN ---
DATE: 08/18/2017 LOCATION: The patient in room 313, bed 1. REASON FOR CONSULTATION AND FOLLOWUP: History of coronary artery disease, atrial fibrillation, acute bronchitis. SUBJECTIVE: The patient still has cough, but denies any chest pain, shortness of breath or palpitation. PHYSICAL EXAMINATION: VITAL SIGNS: Blood pressure 173/82, yesterday blood pressure was 104/59, repeat one was 145/71; respirations 20; pulse 64; temperature 97.8. HEENT: Head is normocephalic. Eyes: Pupils normal. Conjunctivae normal. NECK: JVP low. Carotids equal. THORAX: AP diameter normal. LUNGS: No rales. CARDIOVASCULAR: S1 and S2. ABDOMEN: Soft. No tenderness. No organomegaly. LABORATORY DATA: Blood sugar 220. Other labs were done on the medical floor and they were reported in our notes on the medical floor. DIAGNOSES: Acute bronchitis; history of chronic atrial fibrillation, right now the patient's heart rate is out of control; history of coronary artery disease, status post multiple stents. Echocardiogram showed normal left ventricular systolic function. Right ventricular systolic function of 50 mmHg. Mild to moderate pulmonary hypertension. History of cardiac catheterization on 06/27/2012, which showed patent stents. Recent catheterization by Dr. Andrade. PLAN: Clinically, the patient's cardiac status is stable. The patient is on verapamil 80 t.i.d., digoxin 0.125 daily, aspirin 81 mg daily, Eliquis 5 mg b.i.d., insulin as ordered, Lipitor 40 mg daily, Pepcid 20 mg at bedtime, Tapazole 5 mg p.o. daily, Xopenex nebulizer therapy. We will follow with you. Continue physical therapy. Gail Felder MD
[2017-08-18] MEDS: Digoxin 125 mcg (0.125 mg) Tab PO SCH (14:23)
[2017-08-18] MEDS: Levalbuterol 0.63 MG/3 ML Inhal Soln UD IH PRN (14:37)
[2017-08-18] MEDS: Promethazine 6.25 MG/5 ML CUP PO PRN (21:09)
[2017-08-18] MEDS: Insulin Detemir 100 units/ml Vial (Levemir) SC SCH (21:15)
[2017-08-19] MEDS: Insulin Reg-HIGH-Coverage SC SCH ×4 (06:57→21:15)
[2017-08-19] MEDS: Promethazine 6.25 MG/5 ML CUP PO PRN (10:40)
[2017-08-19] MEDS: methIMAzole 5 MG TAB PO SCH (10:40)
[2017-08-19] MEDS ORDERED: guaiFENesin-Codeine 100-10mg/5ml Syrup (5 ml) UD PO PRN (11:38)
[2017-08-19] MEDS: Digoxin 125 mcg (0.125 mg) Tab PO SCH (14:04)
--- NOTE | 2017-08-19 17:23 | PN ---
DATE: REASON FOR CONSULTATION AND FOLLOWUP: History of chronic coronary artery disease; acute bronchitis; atrial fibrillation, chronic; continue care in transitional care unit. SUBJECTIVE: Denies any chest pain, shortness of breath, or any palpitation. Complaining of cough, improving. PHYSICAL EXAMINATION: VITAL SIGNS: Temperature afebrile, heart rate 52, blood pressure 172/88. HEENT: PERRLA. Extraocular muscles intact. NECK: Supple. No carotid bruit. No thyromegaly. CHEST: Clear to auscultation. HEART: S1 and S2, regular. ABDOMEN: Soft. EXTREMITIES: Clubbing and cyanosis negative. LABORATORY DATA: Blood workup as follows; fingerstick 246. IMPRESSION: Acute bronchitis, admitted initially in the medical floor, atrial fibrillation with rapid ventricular rate, history of chronic atrial fibrillation, history of coronary artery disease, status post multiple stent. Echocardiogram shows normal left ventricular function, right ventricular systolic pressure of 50, [id number] pulmonary hypertension, history of cardiac catheterization on 06/27/2012, recently done by Dr. Andrade, coronary artery stable. RECOMMENDATION: Continue digoxin. Continue verapamil 80 mg three times a day. Continue baby aspirin. Continue Eliquis. We will give Robitussin cough syrup added on. Patient is complaining of cough. Zithromax was given. Patient's symptoms significantly improved. We will follow with you. Gail Modi MD
[2017-08-19] MEDS: Insulin Lispro (humaLOG) MIX 75/25(10 ml) SC SCH (18:01)
--- NOTE | 2017-08-19 18:44 | PN ---
DATE: SUBJECTIVE: The patient is 77-year-old, seen and examined, lying in bed, seems to be comfortable. Still has cough and congestion. OBJECTIVE: VITAL SIGNS: She is afebrile, pulse 50, respirations 20, blood pressure 140/64. LUNGS: Bilateral a few expiratory rhonchi. HEART: S1 and S2, audible. ABDOMEN: Soft and nontender. No rebound. Obese. No hepatosplenomegaly. NEUROLOGICAL: Patient is awake and alert, able to communicate. LABORATORY EXAM: Blood sugar is 246. ASSESSMENT: 1. Asthmatic bronchitis. 2. Chronic atrial fibrillation. 3. Coronary artery disease, status post angioplasty. 4. Morbid obesity. 5. Pulmonary hypertension. 6. Hyperlipidemia. 7. Hyperthyroidism. PLAN: Currently patient is on verapamil, digoxin, aspirin. She is on Eliquis. She is on Levemir 20 units at bedtime. Getting nebulizer treatment. Blood sugar seems to be running high; we will add some Humalog, so that is controlled. Javier Rivera MD
[2017-08-19] MEDS: Insulin Detemir 100 units/ml Vial (Levemir) SC SCH (21:15)
[2017-08-20] MEDS: Promethazine 6.25 MG/5 ML CUP PO PRN ×2 (05:39→14:54)
[2017-08-20] MEDS: Insulin Reg-HIGH-Coverage SC SCH ×4 (06:40→21:44)
[2017-08-20] MEDS: Insulin Lispro (humaLOG) MIX 75/25(10 ml) SC SCH ×2 (06:44→17:50)
[2017-08-20] MEDS: methIMAzole 5 MG TAB PO SCH (09:12)
[2017-08-20] MEDS: Digoxin 125 mcg (0.125 mg) Tab PO SCH (14:50)
--- NOTE | 2017-08-20 18:49 | PN ---
DATE: SUBJECTIVE: Patient is 77-year-old seen and examined, lying in bed, seems to be comfortable. Still has cough, but better than before. OBJECTIVE: VITAL SIGNS: She is afebrile, pulse 60, respiration 18, blood pressure 138/65. LUNGS: Bilateral good airflow. No rhonchi or crackle. HEART: S1, S2 audible. ABDOMEN: Soft, obese, nontender. No rebound, no guarding. NEUROLOGICAL: Patient is awake, alert, oriented, able to communicate. Bilateral legs, +1 edema. LABORATORY EXAMINATION: Blood sugar is 177. ASSESSMENT: 1. Deconditioning and difficulty walking. 2. Urinary tract infection. 3. Chronic atrial fibrillation. 4. Morbid obesity. 5. Asthmatic bronchitis. 6. Coronary artery disease. 7. Pulmonary hypertension. 8. Hyperlipidemia. PLAN: I will increase her insulin coverage from 8 units to 10 units. Continue her on Eliquis. Encourage physical therapy. Continue her nebulizer treatment. Javier Rivera MD
[2017-08-20] MEDS: Insulin Detemir 100 units/ml Vial (Levemir) SC SCH (21:43)
[2017-08-21] MEDS: Insulin Reg-HIGH-Coverage SC SCH ×4 (06:51→22:30)
[2017-08-21] MEDS: Insulin Lispro (humaLOG) MIX 75/25(10 ml) SC SCH ×2 (06:57→17:37)
[2017-08-21] MEDS: Promethazine 6.25 MG/5 ML CUP PO PRN (06:59)
[2017-08-21 07:13] LABS: BASO # 0.03 K/mm3 (0.0-2.0); BASO % 0.4 % (0.0-3.0); EOS # 0.2 (0.0-0.7); EOS % 2.7 % (1.5-5.0); GRAN # 5.44 (1.4-6.5); GRAN % 65.4 % (50.0-68.0); HEMOGLOBIN 13.4 g/dL (12.0-16.0); LYMPH # 1.7 (1.2-3.4); LYMPH % 19.9 % (22.0-35.0); MEAN CELL VOLUME 95.5 fl (80.0-105.0); MEAN CORPUSCULAR HEMOGLOBIN 31.8 pg (25.0-35.0); MEAN CORPUSCULAR HGB CONC 33.3 g/dl (31.0-37.0); MEAN PLATELET VOLUME 12.1 fl (7.0-11.0); MONO % 11.6 % (1.0-6.0); RBC 4.22 10^6/uL (3.5-6.1); RED CELL DISTRIBUTION WIDTH 12.9 % (11.5-14.5); WHITE BLOOD COUNT 8.3 10^3/ul (4.5-11.0)
[2017-08-21 07:37] LABS: ALB/GLOB RATIO 1.2 (1.1-1.8); ALBUMIN 3.5 g/dL (3.0-4.8); ALT/SGPT 36 U/L (7-56); AST/SGOT 22 U/L (14-36); BLOOD UREA NITROGEN 14 mg/dL (7-21); CALCIUM 9.9 mg/dL (8.4-10.5); GFR AFRICAN-AMERICAN > 60; GFR NON-AFRICAN AMERICAN > 60
--- NOTE | 2017-08-21 07:54 | CP.PCM.PN ---
Subjective - Date & Time of Evaluation Date of Evaluation: 08/21/17 Time of Evaluation: 07:15 - Subjective Subjective: Verbalized felling better and doing okay Patient lying in bed,denies shortness of breath or chest pain. Objective - Vital Signs/Intake and Output Vital Signs (last 24 hours): Temp Pulse Resp BP Pulse Ox 98.4 F 54 L 20 139/64 93 L 08/19/17 16:27 08/20/17 17:47 08/19/17 16:27 08/20/17 17:47 08/19/17 16:27 - Medications Medications: Current Medications Acetaminophen (Tylenol 325mg Tab) 650 mg PO Q4H PRN PRN Reason: Pain, Mild (1-3) Last Admin: 08/18/17 21:09 Dose: 650 mg Apixaban (Eliquis) 5 mg PO BID MIRNA PRN Reason: Protocol Last Admin: 08/20/17 17:47 Dose: 5 mg Aspirin (Ecotrin) 81 mg PO 0800 MIRNA PRN Reason: Protocol Last Admin: 08/20/17 09:12 Dose: 81 mg Atorvastatin Calcium (Lipitor) 40 mg PO DIN MIRNA PRN Reason: Protocol Last Admin: 08/20/17 17:54 Dose: 40 mg Digoxin (Digoxin) 0.125 mg PO 1400 MIRNA Last Admin: 08/20/17 14:50 Dose: 0.125 mg Famotidine (Pepcid) 20 mg PO HS MIRNA PRN Reason: Protocol Last Admin: 08/20/17 21:42 Dose: 20 mg Guaifenesin/Codeine Phosphate (Robitussin W/Codeine) 5 ml PO Q4H PRN PRN Reason: Cough and congestion Insulin Detemir (Levemir) 20 unit SC HS MIRNA PRN Reason: Protocol Last Admin: 08/20/17 21:43 Dose: 20 unit Insulin Human Regular (Humulin R High) 0 units SC ACHS MIRNA PRN Reason: Protocol Last Admin: 08/21/17 06:51 Dose: 2 units Insulin Lispro Protam/Lispro Human (Humalog Mix 75/25) 10 units SC ACBD [facility] Last Admin: 08/21/17 06:57 Dose: 10 units Levalbuterol HCl (Xopenex) 0.63 mg IH [id number] PRN PRN Reason: Shortness of Breath Last Admin: 08/18/17 14:37 Dose: 0.63 mg Methimazole (Tapazole) 5 mg PO DAILY MIRNA PRN Reason: Protocol Last Admin: 08/20/17 09:12 Dose: 5 mg Nystatin (Nystop Topical Powder) 0 gm TOP TID PRN; Protocol PRN Reason: Rash Last Admin: 08/18/17 10:45 Dose: 1 applic Promethazine HCl (Phenergan Syrup) 6.25 mg PO Q4H PRN PRN Reason: Cough Last Admin: 08/21/17 06:59 Dose: 6.25 mg Verapamil HCl (Calan Tab) 80 mg PO TID MIRNA PRN Reason: Protocol Last Admin: 08/20/17 17:47 Dose: 80 mg Vitamin A (Vitamin A & D Oint Ud Foilpak) 1 ea TOP BID PRN; Protocol PRN Reason: Dry skin Last Admin: 08/18/17 10:45 Dose: 1 ea - Labs Labs: 08/21/17 06:30 08/21/17 06:30 - Constitutional Appears: No Acute Distress - Eye Exam Eye Exam: Normal appearance Pupil Exam: NORMAL ACCOMODATION - Neck Exam Neck Exam: Normal Inspection - Respiratory Exam Respiratory Exam: Decreased Breath Sounds, NORMAL BREATHING PATTERN - Cardiovascular Exam Cardiovascular Exam: Irregular Rhythm, +S1, +S2. absent: REGULAR RHYTHM - GI/Abdominal Exam GI & Abdominal Exam: Soft - Extremities Exam Extremities Exam: Normal Inspection - Skin Skin Exam: Dry, Intact Assessment and Plan (1) Atrial fibrillation Status: Acute (2) CHF (congestive heart failure) Status: Acute (3) COPD exacerbation Status: Acute (4) Uncontrolled diabetes mellitus Status: Acute - Assessment and Plan (Free Text) Assessment: Diabetes mellitus, Acute bronchitis, cough resolving, history of chronic afib,history of coronary artery disease,history of stent, recent echo result normal EF and ventricular function. Mild to moderate pulmonary hypertension, Plan: Chronic Afib stable. Continue Digoxin and Verapamil and Aspirin as ordered. Continue Eloquis. Cough resolving. Continue Robitussin and Zithromax as ordered. Vital signs stable. Will follow up.
--- NOTE | 2017-08-21 10:35 | PN ---
DATE: 08/20/2017 REASON FOR CONSULTATION: Followup history of chronic coronary artery disease, acute bronchitis, atrial fibrillation, continued care in Transitional Care Unit. SUBJECTIVE: The patient denies any chest pain, shortness of breath, any palpitation. Cough is getting better. PHYSICAL EXAMINATION: GENERAL: Not in apparent distress. VITAL SIGNS: Temperature afebrile, heart rate 55, blood pressure 140/65. HEENT: PERRLA. Extraocular muscles intact. NECK: Supple. No carotid bruits. No thyromegaly. CHEST: Clear to auscultation. HEART: S1 and S2 regular. ABDOMEN: Soft. EXTREMITIES: Clubbing and cyanosis, negative. LABORATORY DATA: Not available. IMPRESSION: Atrial fibrillation, chronic, admitted with rapid rate, now rate is well controlled; history of coronary artery disease, multiple stent. Last catheterization at [place] on 06/27/2012 was patent stent. Last catheterization by Dr. Andrade 2 months ago was essentially normal. Essentially patent stent, stable coronary artery disease. RECOMMENDATION: Continue digoxin. Continue verapamil p.o. t.i.d. Continue Eliquis. Continue atorvastatin. We will repeat the blood workup in the morning. We will also get dig level as well in the morning before the patient gets discharged. Discussed with the patient. We started yesterday Robitussin cough syrup because the patient was complaining. She states that it feels a lot better and had a good night sleep. Also history of hyperthyroidism, on 5 mg of methimazole, continue. Upon discharge, care will be transferred to Dr. Andrade upon discharge and follow up with him. Thank you, Dr. Rivera, for providing us the opportunity in taking care of the patient, [place]. Gail Modi MD
[2017-08-21] MEDS: methIMAzole 5 MG TAB PO SCH (11:09)
--- NOTE | 2017-08-21 11:55 | PN ---
DATE: SUBJECTIVE: The patient has no complaints of any chest pain. No shortness of breath. No headaches or dizziness. PHYSICAL EXAMINATION VITAL SIGNS: Temperature is 98.4, pulse is 64, blood pressure 139/64, respirations 20. GENERAL: The patient is lying in bed, flat, comfortable. HEENT: No oral lesion. Anicteric sclerae. Moist mucosa. NECK: No JVD, adenopathy, or thyromegaly. CARDIOVASCULAR: S1 and S2, regular. No murmurs, rubs, or gallops. LUNGS: Clear to auscultation bilaterally. No wheeze, rales, or rhonchi. ABDOMEN: Bowel sounds are positive. Soft, nontender and nondistended. EXTREMITIES: No cyanosis, clubbing or edema. ASSESSMENT 1. Atrial fibrillation, on Eliquis. 2. Diabetes type 2. 3. Hypertension. 4. Chronic obstructive pulmonary disease. 5. Dyslipidemia. 6. Obesity with a body mass index of 31. 7. 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 PLAN: The patient is currently comfortable. She states she is doing better with Physical Therapy. She is going to continue with Eliquis. She is on digoxin for her atrial fibrillation. She has gait dysfunction, this is why she is on the Transitional Care Unit. She also had a UTI secondary to Klebsiella that was treated. The patient is on Levemir for diabetes. She is on Lipitor for dyslipidemia. She is on a heart-healthy diet. She is probably going home tomorrow. Condition, stable. . Tod Woodruff MD
--- NOTE | 2017-08-21 12:54 | PN ---
DATE: 08/21/2017 LOCATION: The patient in room 313, bed 1. REASON FOR CONSULTATION AND FOLLOWUP: History of coronary artery disease, acute bronchitis, chronic atrial fibrillation, and chronic deconditioning. SUBJECTIVE: The patient denies chest pain, shortness of breath, or palpitation. The patient still has cough, but she states that it is less than before, it is improving. PHYSICAL EXAMINATION VITAL SIGNS: Blood pressure is 139/64, respirations 18, pulse 54, the patient afebrile. HEENT: Head is normocephalic. Eyes: Pupils normal. Conjunctivae normal. Nose and throat: Normal. NECK: JVP low. Carotids equal. THORAX: AP diameter normal. LUNGS: Clear. CARDIOVASCULAR: S1 and S2. ABDOMEN: Soft, nontender. No organomegaly. Bowel sounds normal. EXTREMITIES: No clubbing. No cyanosis. LABORATORY DATA: WBC 8.3, hemoglobin 13.4, hematocrit 40.3, and platelets 240,000. Sodium 137, potassium 4.0, BUN 14, creatinine 0.8. Glucose 163, random glucose 176. Calcium, AST, ALT, total protein and albumin normal. DIAGNOSES: Acute bronchitis; atrial fibrillation with rapid ventricular rate, history of chronic atrial fibrillation; coronary artery disease, status post multiple stents; hypertension; deconditioning. Echocardiogram showed right ventricular systolic pressure of 50 mmHg suggestive of [id number] pulmonary hypertension, normal left ventricular size, normal left ventricular systolic function. The patient follows with Dr. Andrade in [place] and the patient had recent cardiac catheterization on . PLAN: Continue physical therapy. Continue verapamil 80 mg three times a day, digoxin 0.125 mg daily, aspirin 81 daily, Eliquis 5 mg b.i.d., insulin as ordered, Lipitor 40 mg p.o. daily, Pepcid 20 mg p.o. at bedtime, cough medication, Tapazole 5 mg p.o. daily, Xopenex hand nebulizer therapy. We will continue present therapy. We will follow. Gail Felder MD
[2017-08-21] MEDS: Digoxin 125 mcg (0.125 mg) Tab PO SCH (15:25)
[2017-08-21 15:30] VITALS: PULSE 63
[2017-08-21 16:50] VITALS: RESP 18
[2017-08-21 17:41] VITALS: TEMP 98.2; O2SAT 93
[2017-08-21] MEDS: Insulin Detemir 100 units/ml Vial (Levemir) SC SCH (22:31)
[2017-08-22] MEDS: Insulin Lispro (humaLOG) MIX 75/25(10 ml) SC SCH (06:33)
[2017-08-22] MEDS: Insulin Reg-HIGH-Coverage SC SCH ×2 (06:33→11:49)
--- NOTE | 2017-08-22 07:27 | CP.PCM.PN ---
Subjective - Date & Time of Evaluation Date of Evaluation: 08/22/17 Time of Evaluation: 07:00 - Subjective Subjective: Seen and examined by me and Dr. Felder Reason for consultation and follow up: History of coronary artery disease,acute bronchitis,atrial fibrillation, in transitional care unit Lying in bed, denies shortness of breath, verbalized occasional dry cough, cough improving and possible discharge today Objective - Vital Signs/Intake and Output Vital Signs (last 24 hours): Temp Pulse Resp BP Pulse Ox 98.2 F 59 L 18 151/59 H 93 L 08/21/17 17:41 08/21/17 17:41 08/21/17 17:41 08/21/17 17:41 08/21/17 17:41 Intake and Output: 08/22/17 08/22/17 06:59 18:59 Intake Total 480 Balance 480 - Medications Medications: Current Medications Acetaminophen (Tylenol 325mg Tab) 650 mg PO Q4H PRN PRN Reason: Pain, Mild (1-3) Last Admin: 08/18/17 21:09 Dose: 650 mg Apixaban (Eliquis) 5 mg PO BID MIRNA PRN Reason: Protocol Last Admin: 08/21/17 17:39 Dose: 5 mg Aspirin (Ecotrin) 81 mg PO 0800 MIRNA PRN Reason: Protocol Last Admin: 08/21/17 08:51 Dose: 81 mg Atorvastatin Calcium (Lipitor) 40 mg PO DIN MIRNA PRN Reason: Protocol Last Admin: 08/21/17 17:39 Dose: 40 mg Digoxin (Digoxin) 0.125 mg PO 1400 MIRNA Last Admin: 08/21/17 15:25 Dose: 0.125 mg Famotidine (Pepcid) 20 mg PO HS MIRNA PRN Reason: Protocol Last Admin: 08/21/17 22:31 Dose: 20 mg Guaifenesin/Codeine Phosphate (Robitussin W/Codeine) 5 ml PO Q4H PRN PRN Reason: Cough and congestion Insulin Detemir (Levemir) 20 unit SC HS MIRNA PRN Reason: Protocol Last Admin: 08/21/17 22:31 Dose: Not Given Insulin Human Regular (Humulin R High) 0 units SC ACHS MIRNA PRN Reason: Protocol Last Admin: 08/22/17 06:33 Dose: 4 units Insulin Lispro Protam/Lispro Human (Humalog Mix 75/25) 10 units SC ACBD MIRNA Last Admin: 08/22/17 06:33 Dose: 10 units Levalbuterol HCl (Xopenex) 0.63 mg IH [id number] PRN PRN Reason: Shortness of Breath Last Admin: 08/18/17 14:37 Dose: 0.63 mg Methimazole (Tapazole) 5 mg PO DAILY MIRNA PRN Reason: Protocol Last Admin: 08/21/17 11:09 Dose: 5 mg Nystatin (Nystop Topical Powder) 0 gm TOP TID PRN; Protocol PRN Reason: Rash Last Admin: 08/18/17 10:45 Dose: 1 applic Promethazine HCl (Phenergan Syrup) 6.25 mg PO Q4H PRN PRN Reason: Cough Last Admin: 08/21/17 06:59 Dose: 6.25 mg Verapamil HCl (Calan Tab) 80 mg PO TID MIRNA PRN Reason: Protocol Last Admin: 08/21/17 17:39 Dose: 80 mg Vitamin A (Vitamin A & D Oint Ud Foilpak) 1 ea TOP BID PRN; Protocol PRN Reason: Dry skin Last Admin: 08/18/17 10:45 Dose: 1 ea - Labs Labs: 08/21/17 06:30 08/21/17 06:30 - Constitutional Appears: Well, No Acute Distress - Head Exam Head Exam: NORMAL INSPECTION - Eye Exam Eye Exam: Normal appearance Pupil Exam: NORMAL ACCOMODATION - ENT Exam ENT Exam: Normal Exam - Neck Exam Neck Exam: Normal Inspection - Respiratory Exam Respiratory Exam: Clear to Ausculation Bilateral, NORMAL BREATHING PATTERN - Cardiovascular Exam Cardiovascular Exam: +S1, +S2 - GI/Abdominal Exam GI & Abdominal Exam: Soft, Normal Bowel Sounds - Extremities Exam Extremities Exam: Full ROM, Normal Inspection - Psychiatric Exam Psychiatric exam: Normal Affect, Normal Mood - Skin Skin Exam: Intact, Normal Color, Warm Assessment and Plan (1) Atrial fibrillation Status: Acute (2) CHF (congestive heart failure) Status: Acute (3) COPD exacerbation Status: Acute (4) Uncontrolled diabetes mellitus Status: Acute - Assessment and Plan (Free Text) Assessment: Impression: admitted initially for acute bronchitis, resolving, history of atrial afib, controlled. history of coronary artery disease, status post multiple stents. Plan: Recommendation and plan: Resolving bronchits Continue Digoxin, Aspirin,Eloquis and Verapamil Possible discharge today Follow up with Dr. Felder/ office in 1-2 weeks Plan and treatment reviewed with Dr. Felder
[2017-08-22 10:46] VITALS: BP 185/88; PULSE 88
[2017-08-22] MEDS: methIMAzole 5 MG TAB PO SCH (10:46)
== END 2017-08-22 14:57 | disposition home or self-care (01) | DRG 556 ==
LOC: TRCU 11:50
PROVIDERS: ADMIT Internal Medicine Nephrology; ATTEND Internal Medicine Nephrology
PROC: 3E0F7GC Introduction of Other Therapeutic Substance into Respiratory Tract, Via Natural or Artificial Opening (ICD-10-PCS; 2017-08-14)
PROC: F07Z9FZ Gait Training/Functional Ambulation Treatment using Assistive, Adaptive, Supportive or Protective Equipment (ICD-10-PCS; principal; 2017-08-15)
PROC: F08Z4FZ Home Management Treatment using Assistive, Adaptive, Supportive or Protective Equipment (ICD-10-PCS; 2017-08-15)
DX: R26.2 Difficulty in walking, not elsewhere classified (principal); I48.2 Chronic atrial fibrillation; I27.20 Pulmonary hypertension, unspecified; I50.9 Heart failure, unspecified; E66.01 Morbid (severe) obesity due to excess calories; I11.0 Hypertensive heart disease with heart failure; J44.0 Chronic obstructive pulmonary disease with (acute) lower respiratory infection; N39.0 Urinary tract infection, site not specified; J44.1 Chronic obstructive pulmonary disease with (acute) exacerbation; J20.9 Acute bronchitis, unspecified; E05.80 Other thyrotoxicosis without thyrotoxic crisis or storm; E03.9 Hypothyroidism, unspecified; Z79.01 Long term (current) use of anticoagulants; I25.10 Atherosclerotic heart disease of native coronary artery without angina pectoris; E11.9 Type 2 diabetes mellitus without complications; T38.1X5A Adverse effect of thyroid hormones and substitutes, initial encounter; E78.5 Hyperlipidemia, unspecified; Z68.31 Body mass index [BMI] 31.0-31.9, adult; Z95.5 Presence of coronary angioplasty implant and graft

== ENCOUNTER 2018-01-21 08:14 | Inpatient (IN) | payer MEDICARE ==
[2018-01-21 08:15] VITALS: BMI 29.9
[2018-01-21] MEDS ORDERED: diltiaZEM IVPB 100mg in NS 100 ML IV PRN (08:36)
[2018-01-21] MEDS: Sodium Chloride 0.9% 1,000 ML IV STA ×2 (08:48→10:07)
--- NOTE | 2018-01-21 08:56 | ED PDOC ---
Arrival/HPI - General Historian: Patient - Critical Care Critical Care Minutes: 30 minutes - History of Present Illness Time/Duration: < week Symptom Onset: Sudden Symptom Course: Unchanged Activities at Onset: Rest <Shree Feng - Last Filed: 01/21/18 11:48> <MadisonHarshil - Last Filed: 01/21/18 12:21> - General Chief Complaint: Shortness Of Breath Time Seen by Provider: 01/21/18 08:23 - History of Present Illness Narrative History of Present Illness (Text): 01/21/18 08:48 Patient is a 77 year old female with a past medical history of afib (on eliquis) , [place] (s/p multiple PCI with stents)and stress incontinence complaining of shortness of breath. She has been experiencing watery diarrhea for the past three days with decreased oral intake. She attempted to go to the bathroom earlier this morning and had one episode of incontinence. She reports orange urine and a burning sensation for the past couple of days. She noticed that her heart began to race this morning, became short of breath and decided to call the ambulance. She is not having any chest pain but has palpitations. She denies fevers, chills, nausea, vomiting, headaches, blurry vision, lightheadedness, dizziness, numbness or tingling. PMD: Dr. Tod Woodruff Cardio: Dr. Andrade (Shree Feng) Past Medical History - Provider Review Nursing Documentation Reviewed: Yes - Infectious Disease Hx of Infectious Diseases: None - Tetanus Immunization Tetanus Immunization: Unknown - Cardiac Hx Cardiac Disorders: Yes Hx Hypertension: Yes - Pulmonary Hx Chronic Obstructive Pulmonary Disease (COPD): Yes - Neurological Hx Transient Ischemic Attacks (TIA): Yes - HEENT Hx HEENT Disorder: (allergic rhinitis) - Renal Hx Renal Disorder: Yes Hx Renal Failure: Yes - Endocrine/Metabolic Hx Diabetes Mellitus Type 2: Yes - Hematological/Oncological Hx Cancer: (Right breast lump removal no chemo) - Integumentary Hx Dermatological Disorder: Yes Other/Comment: 08-09-17 MASD UNDER THE BREAST AND ABDOMINAL SKIN FOLD. IASD- BILATERAL GROIN RASH - Musculoskeletal/Rheumatological Hx Falls: No - Gastrointestinal Hx Gastrointestinal Disorders: Yes (reflux/) - Genitourinary/Gynecological Hx Reproductive Disorders: Yes (r brreast ca7 yrs ago no chemo/no radiation) - Psychiatric Hx Depression: Yes Hx Substance Use: No - Surgical History Hx Appendectomy: Yes Hx Cardiac Catheterization: Yes (06/27/2012) Hx Cholecystectomy: Yes Hx Coronary Stent: Yes (2009) - Anesthesia Hx Anesthesia: Yes Hx Anesthesia Reactions: No Hx Malignant Hyperthermia: No - Suicidal Assessment Feels Threatened In Home Enviroment: No <Shree Feng - Last Filed: 01/21/18 11:48> Family/Social History - Physician Review Nursing Documentation Reviewed: Yes Family/Social History: Unknown Family HX Smoking Status: Never Smoked Hx Alcohol Use: No Hx Substance Use: No <Shree Feng - Last Filed: 01/21/18 11:48> Allergies/Home Meds <Shree Feng - Last Filed: 01/21/18 11:48> <Harshil Wallace - Last Filed: 01/21/18 12:21> Allergies/Adverse Reactions: Allergies Penicillins Allergy (Verified 08/09/17 13:24) RASH shrimp Allergy (Verified 08/09/17 13:24) RASH clarithromycin Adverse Reaction (Verified 08/09/17 13:24) RASH flu vaccine Adverse Reaction (Uncoded 08/14/17 13:05) FEVER Review of Systems - Physician Review All systems were reviewed & negative as marked: Yes - Review of Systems Constitutional: Other (decreased appetitie). absent: Fevers Eyes: Normal. absent: Vision Changes ENT: Normal. absent: Sore Throat, Rhinorrhea Respiratory: SOB. absent: Cough, Sputum, Wheezing Cardiovascular: Palpitations. absent: Chest Pain Gastrointestinal: Diarrhea (watery, non-bloody), Appetite Changes (decreased). absent: Abdominal Pain, Constipation, Nausea, Vomiting Genitourinary Female: Dysuria, Other (orange discoloration ). absent: Frequency , Hematuria Musculoskeletal: Normal. absent: Back Pain Skin: Normal. absent: Rash Neurological: Normal. absent: Headache, Dizziness, Gait Changes, Disequilibrium Endocrine: Normal. absent: Diaphoresis Psychiatric: Normal. absent: Anxiety, Depression <Shree Feng - Last Filed: 01/21/18 11:48> Physical Exam Vital Signs Reviewed: Yes Temperature: Afebrile Blood Pressure: Normal Pulse: Regular Respiratory Rate: Tachypneic Appearance: Positive for: Well-Appearing, Non-Toxic, Comfortable Pain Distress: None Mental Status: Positive for: Alert and Oriented X 3 - Systems Exam Head: Present: Atraumatic, Normocephalic Extroacular Muscles: Present: EOMI Conjunctiva: Present: Normal Mouth: Present: Dry Pharnyx: Present: Normal Nose (External): Present: Atraumatic Neck: Present: Normal Range of Motion. No: MIDLINE TENDERNESS, JVD, Lymphadenopathy Respiratory/Chest: Present: Clear to Auscultation, Good Air Exchange. No: Respiratory Distress, Accessory Muscle Use, Rales, Rhonchi Cardiovascular: Present: Irregular Rhythm, Peripheal Pulses Present, Tachycardic (tachy at 180s on monitor). No: Murmurs Abdomen: No: Tenderness, Distention, Peritoneal Signs, Rebound, Guarding Back: Present: Normal Inspection Upper Extremity: Present: Normal Inspection, NORMAL PULSES. No: Cyanosis, Edema Lower Extremity: Present: Normal Inspection, NORMAL PULSES. No: Edema, CALF TENDERNESS Neurological: Present: GCS=15, Speech Normal, Motor Func Grossly Intact Skin: Present: Warm, Dry, Normal Color. No: Rashes Lymphatic: No: Cervical Adenopathy Psychiatric: Present: Alert, Oriented x 3, Normal Insight, Normal Concentration <Shree Feng - Last Filed: 01/21/18 11:48> Vital Signs Temp Pulse Resp BP Pulse Ox 01/21/18 11:15 130 H 112/53 L 01/21/18 10:51 124 H 127/60 01/21/18 10:38 143 H 127/80 01/21/18 10:20 98.2 F 131 H 19 105/73 96 01/21/18 10:05 138 H 105/73 01/21/18 08:58 98.9 F 147 H 20 118/61 97 01/21/18 08:33 171 H 22 107/72 98 Medical Decision Making Reassessment Condition: Re-examined, Unchanged - Critical Care Critical Care Minutes: 30 minutes - Lab Interpretations I have reviewed the lab results: Yes - RAD Interpretation Gum Sprayer: Radiologist <Shree Feng - Last Filed: 01/21/18 11:48> <Harshil Wallace - Last Filed: 01/21/18 12:21> ED Course and Treatment: 01/21/18 09:00 Patient now resting comfortably with oxygen, saturating at complaining of palpitations. Orders: * Cardizem 20mg IVP * Cardizem drip * labs * CXR 01/21/18 09:25 BS 400 Insulin reg 10 units IVP 01/21/18 09:50 WBC 20 with left shift, blood cultures ordered. afebrile Patient is resting comfortably with HR 140s on monitor, saturating 96% on NC 2L Addition Cardizem 35mg IVP Increased drip to 10 mg 01/21/18 10:40 HR still elevated at 140+, will give Lopressor 5mg IVP 01/21/18 11:04 UA positive for WBC (tntc), leuk deja, blood, protein and ketones Started Cipro 400mg IVPB (no rocephin due to penicillin allergy) HR still 140+, Lopressor 5mg IVP Discussed case with Dr. Woodruff, requests ICU eval due to rapid afib refractory to medications, accepts patient on to his service. 01/21/18 11:40 Dr. Navarro is present in ED to examine patient, discussed case, request Abd/ Pelvis CT and accepts to ICU for further treatment. (Shree Feng) 01/21/18 09:05 Seen and examined with the resident. Our history and physical exam reveals an obese elderly woman complaining of a several day history of diarrhea. She has poor by mouth intake. No vomiting. She had some urinary incontinence today. He has some shortness of breath. Her EKG shows rapid atrial fibrillation. She denies chest pain. (Harshil Wallace) - Lab Interpretations Lab Results: 01/21/18 08:45 01/21/18 08:45 Lab Results 01/21/18 10:20: Urine Color Yellow, Urine Appearance Sl cloudy, Urine pH 6.0, Ur Specific [place] 1.025, Urine Protein 100 H, Urine Glucose (UA) >=1000, Urine Ketones 40 H, Urine Blood Moderate H, Urine Nitrate Negative, Urine Bilirubin Negative, Urine Urobilinogen 0.2, Ur Leukocyte Esterase Small H, Urine RBC 1 - 3, Urine WBC Tntc, Ur Epithelial Cells 0 - 2, Urine Bacteria Small 01/21/18 09:25: Digoxin < 0.4 L 01/21/18 08:45: Sodium 130 L, Potassium 4.4, Chloride 97 L, Carbon Dioxide 17 L , Anion Gap 21 H, BUN 26 H, Creatinine 0.9, Est GFR ( Amer) > 60, Est GFR (Non-Af Amer) > 60, Random Glucose 400 H* D, Calcium 9.1, Phosphorus 2.7, Magnesium 1.8, Total Bilirubin 1.2, AST 25, ALT 21, Alkaline Phosphatase 62, Troponin I 0.02, Total Protein 7.2, Albumin 3.8, Globulin 3.4, Albumin/Globulin Ratio 1.1, Lipase 28 01/21/18 08:45: PT 18.5 H, INR 1.59, APTT 28.5 01/21/18 08:45: WBC 20.7 H D, RBC 4.46, Hgb 14.5, Hct 41.0, MCV 91.9 D, MCH 32.5, MCHC 35.4, RDW 12.2, Plt Count 338, MPV 12.4 H, Gran % 78.9 H, Lymph % ( Auto) 6.2 L, [place] % (Auto) 14.7 H, Eos % (Auto) 0.0 L, Baso % (Auto) 0.2, Gran # 16.34 H, Lymph # (Auto) 1.3, [place] # (Auto) 3.1 H, Eos # (Auto) 0.0, Baso # ( Auto) 0.05 - RAD Interpretation Narrative RAD Interpretations (Text): 01/21/18 09:50 CXR - No active disease. (Shree Feng) Radiology Orders: 01/21/18 08:37 CXR [CHEST PORTABLE] [RAD] Stat 01/21/18 11:39 ABDOMEN & PELVIS [ABD & PELVIS W/O PO OR IV CONT] [CT] Stat - Medication Orders Current Medication Orders: diltiaZEM IVPB 100mg in NS (Cardizem 100mg In Ns) 100 mls @ 5 mls/hr IV .Q20H PRN; Protocol; 5 MG/HR PRN Reason: TITRATE PER MD ORDER Last Admin: 01/21/18 08:51 Dose: 5 mls/hr eMAR Start Stop Document 01/21/18 08:51 GMI (Rec: 01/21/18 08:51 GMI [id number]) Intravenous Solution Start Date 01/21/18 Start Time 08:51 Ciprofloxacin (Cipro 400mg/200ml Dsw) 400 mg in 200 mls @ 133.3 mls/hr IVPB STAT STA PRN Reason: Protocol Stop: 01/21/18 12:32 Last Admin: 01/21/18 11:56 Dose: 133.3 mls/hr eMAR Start Stop Document 01/21/18 11:56 GMI (Rec: 01/21/18 11:57 GMI [id number]) Intravenous Solution Start Date 01/21/18 Start Time 11:56 Discontinued Medications Digoxin (Lanoxin) 0.25 mg IVP STAT STA Stop: 01/21/18 10:28 Last Admin: 01/21/18 10:48 Dose: 0.25 mg MAR Apical Pulse Rate Document 01/21/18 10:48 GMI (Rec: 01/21/18 10:49 GMI [id number]) Apical Pulse Rate Apical Pulse Rate (60-90 beats/min) 135 IVP Administration Document 01/21/18 10:48 GMI (Rec: 01/21/18 10:49 GMI [id number]) Charges for Administration # of IVP Administrations 1 Diltiazem HCl (Cardizem) 20 mg IVP STAT STA Stop: 01/21/18 08:36 Last Admin: 01/21/18 08:47 Dose: 20 mg Diltiazem HCl (Cardizem) 35 mg IVP STAT STA Stop: 01/21/18 09:56 Last Admin: 01/21/18 10:05 Dose: 35 mg IVP Administration Document 01/21/18 10:05 GMI (Rec: 01/21/18 10:06 GMI [id number]) Charges for Administration # of IVP Administrations 1 MAR Pulse and Blood Pressure Document 01/21/18 10:05 GMI (Rec: 01/21/18 10:06 GMI [id number]) Pulse Pulse Rate (60-90 beats/min) 138 Blood Pressure Blood Pressure (100/60-150/90 mm Hg) 105/73 Sodium Chloride (Sodium Chloride 0.9%) 1,000 mls @ 999 mls/hr IV .Q1H1M STA Stop: 01/21/18 09:38 Last Admin: 01/21/18 10:07 Dose: 999 mls/hr eMAR Start Stop Document 01/21/18 10:07 GMI (Rec: 08/05/18 10:07 GMI [id number]) Intravenous Solution Start Date 01/21/18 Start Time 10:07 End Date 01/21/18 End time 11:10 Total Infusion Time 63 Sodium Chloride (Sodium Chloride 0.9%) 1,000 mls @ 999 mls/hr IV .Q1H1M STA Stop: 01/21/18 10:23 Last Admin: 01/21/18 10:10 Dose: 999 mls/hr eMAR Start Stop Document 01/21/18 10:10 GMI (Rec: 01/21/18 10:10 GMI [id number]) Intravenous Solution Start Date 01/21/18 Start Time 10:10 Insulin Human Regular (Humulin R) 10 units IVP STAT STA Stop: 01/21/18 09:26 Last Admin: 01/21/18 10:09 Dose: 10 units MAR Blood Glucose Document 01/21/18 10:09 GMI (Rec: 01/21/18 10:10 GMI [id number]) Blood Glucose Finger Stick Blood Glucose (70-120) 356 IVP Administration Document 01/21/18 10:09 GMI (Rec: 01/21/18 10:10 GMI [id number]) Charges for Administration # of IVP Administrations 1 Metoprolol Tartrate (Lopressor) 5 mg IVP ONCE ONE Stop: 01/21/18 10:34 Last Admin: 01/21/18 11:15 Dose: 5 mg IVP Administration Document 01/21/18 11:15 GMI (Rec: 01/21/18 11:15 GMI [id number]) Charges for Administration # of IVP Administrations 1 MAR Pulse and Blood Pressure Document 01/21/18 11:15 GMI (Rec: 01/21/18 11:15 GMI [id number]) Pulse Pulse Rate (60-90 beats/min) 142 Blood Pressure Blood Pressure (100/60-150/90 mm Hg) 127/60 Metoprolol Tartrate (Lopressor) 5 mg IVP STAT STA Stop: 01/21/18 11:09 Last Admin: 01/21/18 11:15 Dose: 5 mg IVP Administration Document 01/21/18 11:15 GMI (Rec: 01/21/18 11:54 GMI [id number]) Charges for Administration # of IVP Administrations 1 AUG Pulse and Blood Pressure Document 01/21/18 11:15 GMI (Rec: 01/21/18 11:54 GMI [id number]) Pulse Pulse Rate (60-90 beats/min) 130 Blood Pressure Blood Pressure (100/60-150/90 mm Hg) 112/53 Disposition/Present on Arrival - Present on Arrival Any Indicators Present on Arrival: No History of DVT/PE: No History of Uncontrolled Diabetes: Yes Urinary Catheter: No History of Decub. Ulcer: No History Surgical Site Infection Following: None - Disposition Have Diagnosis and Disposition been Completed?: Yes Disposition Time: 11:50 Patient Plan: ICU <Shree Feng - Last Filed: 01/21/18 11:48> - Present on Arrival Any Indicators Present on Arrival: No History of DVT/PE: No History of Uncontrolled Diabetes: Yes Urinary Catheter: No History of Decub. Ulcer: No - Disposition Have Diagnosis and Disposition been Completed?: Yes Patient Plan: ICU <Harshil Wallace - Last Filed: 01/21/18 12:21> - Disposition Diagnosis: Rapid atrial fibrillation, Uncontrolled diabetes mellitus Disposition: HOSPITALIZED Patient Problems: Current Active Problems Problem Status Onset Rapid atrial fibrillation Acute Uncontrolled diabetes mellitus Acute Condition: CRITICAL
--- NOTE | 2018-01-21 08:57 | ED PDOC ---
Arrival/HPI - General Chief Complaint: Shortness Of Breath Time Seen by Provider: 01/21/18 08:23 Past Medical History - Infectious Disease Hx of Infectious Diseases: None - Tetanus Immunization Tetanus Immunization: Unknown - Cardiac Hx Cardiac Disorders: Yes Hx Hypertension: Yes - Pulmonary Hx Chronic Obstructive Pulmonary Disease (COPD): Yes - Neurological Hx Transient Ischemic Attacks (TIA): Yes - HEENT Hx HEENT Disorder: (allergic rhinitis) - Renal Hx Renal Disorder: Yes Hx Renal Failure: Yes - Endocrine/Metabolic Hx Diabetes Mellitus Type 2: Yes - Hematological/Oncological Hx Cancer: (Right breast lump removal no chemo) - Integumentary Hx Dermatological Disorder: Yes Other/Comment: 08-09-17 MASD UNDER THE BREAST AND ABDOMINAL SKIN FOLD. IASD- BILATERAL GROIN RASH - Musculoskeletal/Rheumatological Hx Falls: No - Gastrointestinal Hx Gastrointestinal Disorders: Yes (reflux/) - Genitourinary/Gynecological Hx Reproductive Disorders: Yes (r brreast ca7 yrs ago no chemo/no radiation) - Psychiatric Hx Depression: Yes Hx Substance Use: No - Surgical History Hx Appendectomy: Yes Hx Cardiac Catheterization: Yes (06/27/2012) Hx Cholecystectomy: Yes Hx Coronary Stent: Yes (2009) - Anesthesia Hx Anesthesia: Yes Hx Anesthesia Reactions: No Hx Malignant Hyperthermia: No - Suicidal Assessment Feels Threatened In Home Enviroment: No Family/Social History Smoking Status: Never Smoked Hx Alcohol Use: No Hx Substance Use: No Allergies/Home Meds Allergies/Adverse Reactions: Allergies Penicillins Allergy (Verified 08/09/17 13:24) RASH shrimp Allergy (Verified 08/09/17 13:24) RASH clarithromycin Adverse Reaction (Verified 08/09/17 13:24) RASH flu vaccine Adverse Reaction (Uncoded 08/14/17 13:05) FEVER Physical Exam Vital Signs Pulse Resp BP Pulse Ox 01/21/18 08:33 171 H 22 107/72 98 Medical Decision Making - RAD Interpretation Radiology Orders: 01/21/18 08:37 CXR [CHEST PORTABLE] [RAD] Stat - Medication Orders Current Medication Orders: diltiaZEM IVPB 100mg in NS (Cardizem 100mg In Ns) 100 mls @ 5 mls/hr IV .Q20H PRN; Protocol; 5 MG/HR PRN Reason: TITRATE PER MD ORDER Sodium Chloride (Sodium Chloride 0.9%) 1,000 mls @ 999 mls/hr IV .Q1H1M STA Stop: 01/21/18 09:38 Discontinued Medications Diltiazem HCl (Cardizem) 20 mg IVP STAT STA Stop: 01/21/18 08:36 Disposition/Present on Arrival - Present on Arrival History of DVT/PE: No History of Uncontrolled Diabetes: Yes Urinary Catheter: No History of Decub. Ulcer: No History Surgical Site Infection Following: None - Disposition
[2018-01-21 09:13] LABS: BASO # 0.05 K/mm3 (0.0-2.0); BASO % 0.2 % (0.0-3.0); GRAN # 16.34 (1.4-6.5); GRAN % 78.9 % (50.0-68.0); HEMOGLOBIN 14.5 g/dL (12.0-16.0); LYMPH # 1.3 (1.2-3.4); LYMPH % 6.2 % (22.0-35.0); MEAN CELL VOLUME 91.9 fl (80.0-105.0); MEAN CORPUSCULAR HEMOGLOBIN 32.5 pg (25.0-35.0); MEAN CORPUSCULAR HGB CONC 35.4 g/dl (31.0-37.0); MEAN PLATELET VOLUME 12.4 fl (7.0-11.0); MONO # 3.1 (0.1-0.6); MONO % 14.7 % (1.0-6.0); RBC 4.46 10^6/uL (3.5-6.1); RED CELL DISTRIBUTION WIDTH 12.2 % (11.5-14.5); WHITE BLOOD COUNT 20.7 10^3/ul (4.5-11.0)
[2018-01-21 09:19] LABS: INR 1.59; PARTIAL THROMBOPLASTIN TIME 28.5 Seconds (25.1-36.5); PROTHROMBIN TIME 18.5 SECONDS (9.4-12.5)
[2018-01-21 09:21] LABS: ALB/GLOB RATIO 1.1 (1.1-1.8); ALBUMIN 3.8 g/dL (3.0-4.8); ALT/SGPT 21 U/L (7-56); AST/SGOT 25 U/L (14-36); BLOOD UREA NITROGEN 26 mg/dL (7-21); CALCIUM 9.1 mg/dL (8.4-10.5); GFR AFRICAN-AMERICAN > 60; GFR NON-AFRICAN AMERICAN > 60; LIPASE 28 U/L (23-300)
[2018-01-21 09:22] LABS: TROPONIN I 0.02 ng/mL
--- NOTE | 2018-01-21 09:22 | RAD ---
Date of service: 01/21/2018 HISTORY: sob COMPARISON: 08/09/2017 FINDINGS: LUNGS: No active pulmonary disease. PLEURA: No significant pleural effusion identified, no pneumothorax apparent. CARDIOVASCULAR: Normal. OSSEOUS STRUCTURES: No significant abnormalities. VISUALIZED UPPER ABDOMEN: Normal. OTHER FINDINGS: None. IMPRESSION: No active disease.
[2018-01-21] MEDS ORDERED: Sodium Chloride 0.9% 1,000 ML IV STA (09:23)
[2018-01-21] MEDS ORDERED: Insulin Regular 1 UNITS/0.01 ML ML IVP STA (09:25)
[2018-01-21] MEDS ORDERED: Digoxin 500 mcg/2ml (0.5 mg/2ml) Inj IVP STA (10:27)
[2018-01-21] MEDS ORDERED: Metoprolol 1 mg/ml Inj IVP ONE (10:33)
[2018-01-21] MEDS: Metoprolol 1 mg/ml Inj IVP ONE ×2 (10:38→11:15)
[2018-01-21 10:40] LABS: URINE BILIRUBIN NEGATIVE (NEGATIVE); URINE BLOOD MODERATE (NEGATIVE); URINE GLUCOSE (UA) >=1000 mg/dL (NEGATIVE); URINE LEUKOCYTE ESTERASE SMALL Leu/uL (NEGATIVE); URINE PROTEIN 100 mg/dL (<30 mg/dL); URINE UROBILINOGEN 0.2 E.U./dL (<1 E.U./dL)
[2018-01-21 10:44] LABS: URINE APPEARANCE SL CLOUDY (CLEAR)
[2018-01-21 10:45] LABS: URINE COLOR YELLOW (YELLOW)
[2018-01-21 10:57] LABS: URINE BACTERIA SMALL (NEG); URINE EPITHELIAL CELLS 0 - 2 /hpf (0-5); URINE WBC TNTC /hpf (0-6)
[2018-01-21] MEDS ORDERED: Ciprofloxacin 400mg/200ml D5W 400 MG/200 ML BAG IVPB STA (11:02)
[2018-01-21] MEDS ORDERED: Metoprolol 1 mg/ml Inj IVP STA (11:08)
--- NOTE | 2018-01-21 12:08 | CP.PCM.CON ---
History of Present Illness - History of Present Illness History of Present Illness: MICU CONSULT NOTE HPI Patient 77yo female with PMHx of CAD, Afib on Eliquis, COPD, presented to the ER with weakness, fatigue, SOB, and diarrhea for 3 days. patient has not been able to ambulate for last 3-4 days, has had watery, profuse diarrhea, without fever, chills, mucus or blood. No other constitutional symptoms. Denies recent abx use. In the ER noted to be in rapid Afib with RVR, given Digoxin IV, and placed on Caridzem drip PMhx as above PSHx as above Meds as per EMR FHx NC Social denies smoking, etoh, drug use, retired Review of Systems - Review of Systems Review of Systems: as per HPI Past Patient History - Infectious Disease Hx of Infectious Diseases: None - Tetanus Immunizations Tetanus Immunization: Unknown - Past Social History Smoking Status: Never Smoked - CARDIAC Hx Cardiac Disorders: Yes Hx Hypertension: Yes - PULMONARY Hx Chronic Obstructive Pulmonary Disease (COPD): Yes - NEUROLOGICAL Hx Transient Ischemic Attacks (TIA): Yes - HEENT Hx HEENT Problems: (allergic rhinitis) - RENAL Hx Chronic Kidney Disease: Yes Hx Renal Failure: Yes - ENDOCRINE/METABOLIC Hx Diabetes Mellitus Type 2: Yes - HEMATOLOGICAL/ONCOLOGICAL Hx Cancer: (Right breast lump removal no chemo) - INTEGUMENTARY Hx Dermatological Problems: Yes Other/Comment: 08-09-17 MASD UNDER THE BREAST AND ABDOMINAL SKIN FOLD. IASD- BILATERAL GROIN RASH - MUSCULOSKELETAL/RHEUMATOLOGICAL Hx Falls: No - GASTROINTESTINAL Hx Gastrointestinal Disorders: Yes (reflux/) - GENITOURINARY/GYNECOLOGICAL Hx Reproductive Disorders: Yes (r brreast ca7 yrs ago no chemo/no radiation) - PSYCHIATRIC Hx Depression: Yes Hx Substance Use: No - SURGICAL HISTORY Hx Appendectomy: Yes Hx Cardiac Catheterization: Yes (06/27/2012) Hx Cholecystectomy: Yes Hx Coronary Stent: Yes (2009) - ANESTHESIA Hx Anesthesia: Yes Hx Anesthesia Reactions: No Hx Malignant Hyperthermia: No Meds Allergies/Adverse Reactions: Allergies Allergy/AdvReac Type Severity Reaction Status Date / Time Penicillins Allergy RASH Verified 08/09/17 13:24 shrimp Allergy RASH Verified 08/09/17 13:24 clarithromycin AdvReac RASH Verified 08/09/17 13:24 flu vaccine AdvReac FEVER Uncoded 08/14/17 13:05 - Medications Medications: Current Medications diltiaZEM IVPB 100mg in NS (Cardizem 100mg In Ns) 100 mls @ 5 mls/hr IV .Q20H PRN; Protocol; 5 MG/HR PRN Reason: TITRATE PER MD ORDER Last Admin: 01/21/18 08:51 Dose: 5 mls/hr Ciprofloxacin (Cipro 400mg/200ml Dsw) 400 mg in 200 mls @ 133.3 mls/hr IVPB STAT STA PRN Reason: Protocol Stop: 01/21/18 12:32 Last Admin: 01/21/18 11:56 Dose: 133.3 mls/hr Physical Exam - Constitutional Appears: Non-toxic, No Acute Distress - Head Exam Head Exam: NORMAL INSPECTION - Eye Exam Eye Exam: Normal appearance - ENT Exam ENT Exam: Mucous Membranes Dry - Respiratory Exam Respiratory Exam: Clear to Auscultation Bilateral, NORMAL BREATHING PATTERN - Cardiovascular Exam Cardiovascular Exam: REGULAR RHYTHM, +S1, +S2 - GI/Abdominal Exam GI & Abdominal Exam: Normal Bowel Sounds, Soft - Extremities Exam Extremities exam: Positive for: normal inspection - Neurological Exam Neurological exam: Alert, Oriented x3 - Psychiatric Exam Psychiatric exam: Normal Affect - Skin Skin Exam: Normal Color, Warm Results - Vital Signs Recent Vital Signs: Last Vital Signs Temp 98.2 F 01/21/18 10:20 Pulse 130 H 01/21/18 11:15 Resp 19 01/21/18 10:20 BP 112/53 L 01/21/18 11:15 Pulse Ox 96 01/21/18 10:20 - Labs Result Diagrams: 01/21/18 08:45 01/21/18 08:45 Assessment & Plan - Assessment and Plan (Free Text) Assessment: 77yo female PMhx of Afib on Eliquis, CAD, COPD, admitted with diarrhea and rapid Afib Rapid Afib with RVR Diarrhea Dehydration COPD CAD DKA, mild - currently afebrile, BP stable, in Afib 130s, on Cardizem drip - benign abd exam - labs, imaging, chart reviewed Recommend: - supp o2 as needed - Duonebs PRN - Cipro/Flagyl IV - NPO - IV hydration - Obtain CT A/P without contrast - Check Cdiff - stool studies - Cardizem drip - Eliquis - Cardiology consult - Start insulin drip - check BMP q12hr - GI ppx - DVT ppx - Admit to MICU Critical care time 35 minutes
[2018-01-21] MEDS ORDERED: Insulin Regular 100 UNITS in Sodium Chloride 0.9% 99 ML IV PRN (13:48)
[2018-01-21] MEDS ORDERED: Sodium Chloride 0.9% 1,000 ML IV SCH (14:00)
--- NOTE | 2018-01-21 14:20 | CT ---
Date of service: 01/21/2018 PROCEDURE: CT Abdomen and Pelvis without intravenous contrast HISTORY: abd pain, r/o colitis COMPARISON: 05/23/2014 TECHNIQUE: Without contrast.. Contrast dose: Radiation dose: Total exam DLP = 1032 mGy-cm. This CT exam was performed using one or more of the following dose reduction techniques: Automated exposure control, adjustment of the mA and/or kV according to patient size, and/or use of iterative reconstruction technique. FINDINGS: LOWER THORAX: Severe calcification of the coronary arteries LIVER: Unremarkable. No gross lesion or ductal dilatation. GALLBLADDER AND BILE DUCTS: Unremarkable. PANCREAS: Unremarkable. No gross lesion or ductal dilatation. SPLEEN: Unremarkable. ADRENALS: Unremarkable. No mass. KIDNEYS AND URETERS: There is left-sided perinephric stranding. There is no hydronephrosis or evidence of an obstructing stone. The findings could be secondary to a recently passed stone or pyelonephritis. Clinical correlation is suggested VASCULATURE: Unremarkable. No aortic aneurysm. BOWEL: Unremarkable. No obstruction. No gross mural thickening. APPENDIX: Unremarkable. Normal appendix. PERITONEUM: Unremarkable. No free fluid. No free air. LYMPH NODES: Unremarkable. No enlarged lymph nodes. BLADDER: Unremarkable. REPRODUCTIVE: Unremarkable. BONES: No acute fracture. OTHER FINDINGS: None. IMPRESSION: There is left-sided perinephric stranding. There is no hydronephrosis or evidence of an obstructing stone. The findings could be secondary to a recently passed stone or pyelonephritis. Clinical correlation is suggested
[2018-01-21] MEDS: diltiaZEM IVPB 100mg in NS 100 ML IV PRN ×2 (16:45→22:33)
[2018-01-21] MEDS: Vancomycin 1gm in NS 250ml 1 GM/250 ML BAG IVPB SCH (17:09)
[2018-01-21] MEDS: methIMAzole 5 MG TAB PO SCH (17:11)
[2018-01-21] MEDS: Aztreonam 1 Gm in NS 100mL 100 ML IVPB SCH (21:04)
[2018-01-22 00:21] LABS: ALT/SGPT 24 U/L (7-56); AST/SGOT 40 U/L (14-36); BLOOD UREA NITROGEN 16 mg/dL (7-21); CALCIUM 7.8 mg/dL (8.4-10.5); GFR AFRICAN-AMERICAN > 60; GFR NON-AFRICAN AMERICAN > 60
[2018-01-22] MEDS ORDERED: Insulin Detemir 100 units/ml Vial (Levemir) SC STA (00:37)
[2018-01-22] MEDS ORDERED: Dextrose 5%/0.45% NS 1,000 ML IV SCH (00:45)
[2018-01-22] MEDS: Dextrose 5%/0.9% NS 1,000 ML IV SCH ×3 (00:48→23:45)
--- NOTE | 2018-01-22 02:59 | CON ---
Copied To: Lucho James MD Attending MD: Lucho James MD DATE: 01/21/2018 CARDIOLOGY CONSULTATION REASON FOR CONSULTATION: Rapid atrial fibrillation. HISTORY OF PRESENT ILLNESS: The patient is a 77-year-old white female who has a chronic atrial fibrillation, on Eliquis therapy, status post coronary intervention many years ago, presented because of watery diarrhea, poor appetite, and weakness as well as urinary incontinence. The patient was found to be in rapid atrial fibrillation and was admitted to ICU and placed on IV Cardizem. The patient denies any retrosternal chest pain. SOCIAL HISTORY: Nonsmoker, nondrinker. MEDICATIONS: Cardizem infusion 5 mg per hour, normal saline 100 mL an hour as well as regular insulin drip. REVIEW OF SYSTEMS: No vomiting. No fever or chills. The patient has a history of mini stroke in the past. PHYSICAL EXAMINATION: GENERAL: The patient is an elderly female who does not appear to be in any acute distress. VITAL SIGNS: Blood pressure 123/56, heart rate 122, respirations 20, temperature 98.2. HEENT: Normocephalic. CHEST: Diminished breath sounds over the bases. HEART: S1, S2 regular. ABDOMEN: Soft. EXTREMITIES: Trace leg edema. LABORATORY DATA: CBC: WBC 20.7, hemoglobin 14.5, hematocrit 41, platelet count 338,000. SMA-7: Sodium 138, potassium 4.4, chloride 97, CO2 of 17, glucose 400, BUN 26, creatinine 0.9. Troponin 0.02. INR is 1.59, PTT is 28.5. Digoxin level is less than 0.4. DIAGNOSTIC DATA: EKG revealed atrial fibrillation at the rate of 180, possible old anterior infarct. Abdomen and pelvis CT scan without p.o. or IV contrast revealed left perinephric stranding, no hydronephrosis or evidence of obstructing stone. Findings could be secondary to recently passed stone or pyelonephritis. Chest x-ray report, no active disease. Echocardiographic study report, done recently on 01/12/2018, revealed a normal left ventricular size, wall thickness, ejection fraction, and mild pulmonary hypertension. Most recent cardiac catheterization was done in 06/2012 which revealed patent LAD stent and patent circumflex stent with severe diagonal disease and moderate side branch disease and medical therapy was recommended at that time. ASSESSMENT: 1. Rapid atrial fibrillation. 2. Diarrhea and dehydration. 3. Mild prerenal azotemia. 4. Uncontrolled diabetes mellitus. RECOMMENDATIONS: Increase current Cardizem infusion to 10 mg per hour. Start Lopressor 25 mg twice a day and resume Eliquis if there is no contraindication. Optimize intravenous hydration. Lucho James MD
[2018-01-22] MEDS ORDERED: Metoprolol 1 mg/ml Inj IVP ONE (03:19)
[2018-01-22] MEDS ORDERED: Digoxin 500 mcg/2ml (0.5 mg/2ml) Inj IVP ONE (03:24)
[2018-01-22] MEDS: Vancomycin 1gm in NS 250ml 1 GM/250 ML BAG IVPB SCH ×2 (03:45→16:11)
[2018-01-22] MEDS: diltiaZEM IVPB 100mg in NS 100 ML IV PRN (05:40)
[2018-01-22 06:41] LABS: BASO # 0.02 K/mm3 (0.0-2.0); BASO % 0.2 % (0.0-3.0); EOS % 0.4 % (1.5-5.0); GRAN # 8.12 (1.4-6.5); GRAN % 77.9 % (50.0-68.0); HEMOGLOBIN 13.2 g/dL (12.0-16.0); LYMPH # 0.9 (1.2-3.4); LYMPH % 8.5 % (22.0-35.0); MEAN CELL VOLUME 93.1 fl (80.0-105.0); MEAN CORPUSCULAR HEMOGLOBIN 31.3 pg (25.0-35.0); MEAN CORPUSCULAR HGB CONC 33.6 g/dl (31.0-37.0); MEAN PLATELET VOLUME 11.6 fl (7.0-11.0); MONO # 1.4 (0.1-0.6); RBC 4.22 10^6/uL (3.5-6.1); RED CELL DISTRIBUTION WIDTH 12.5 % (11.5-14.5); WHITE BLOOD COUNT 10.4 10^3/ul (4.5-11.0)
--- NOTE | 2018-01-22 06:51 | CARD ---
APPROVED REPORT Date of service: 01/21/2018 EKG Measurement Heart [id number] <Conclusion> Atrial fibrillation with rapid ventricular response Possible Anterior infarct, age undetermined Abnormal ECG
[2018-01-22 07:05] LABS: ALBUMIN 2.9 g/dL (3.0-4.8); ALT/SGPT 37 U/L (7-56); AST/SGOT 51 U/L (14-36); BLOOD UREA NITROGEN 13 mg/dL (7-21); CALCIUM 7.7 mg/dL (8.4-10.5); GFR AFRICAN-AMERICAN > 60; GFR NON-AFRICAN AMERICAN > 60
[2018-01-22] MEDS: Insulin Lispro (humaLOG) LOW Coverage SC SCH ×4 (07:30→22:37)
[2018-01-22] MEDS ORDERED: Sodium Chloride 0.9% 1,000 ML IV STA (08:40)
[2018-01-22] MEDS: Aztreonam 1 Gm in NS 100mL 100 ML IVPB SCH ×3 (09:02→22:26)
[2018-01-22] MEDS: Insulin Lispro 1 UNITS/0.01 ML SC SCH ×3 (09:03→16:10)
[2018-01-22] MEDS: methIMAzole 5 MG TAB PO SCH (09:04)
--- NOTE | 2018-01-22 11:04 | PN ---
Copied To: Moses Willett MD Attending MD: Moses Willtet MD DATE: 01/22/2018 SUBJECTIVE: The patient is seen and examined at bedside. She is alert, awake and oriented x3. She had spiked fever last night, at which time blood culture and urine culture were sent. CT of the abdomen and pelvis revealed signs of pyelonephritis on the left side. No hydronephrosis or obstructive stone present. The patient still has uncontrolled AFib with RVR and she is on Cardizem drip 10 mg/hour. She received p.o. dose of Cardizem in the morning and ate her breakfast without any problem. PHYSICAL EXAMINATION: VITAL SIGNS: Heart rate 110-130, oxygen saturation 96%, respiratory rate varies from 20 to 25, blood pressure 135/62. ENT: Head and neck atraumatic. LUNGS: Clear to auscultation bilaterally. HEART: Irregular rate and rhythm. S1, S2 distant. ABDOMEN: Soft, nontender, nondistended. MUSCULOSKELETAL: No C/C/E. NEUROLOGIC: The patient moves all extremities spontaneously. SKIN: Moist. PSYCH: The patient is alert, awake and oriented x3. LABORATORY DATA: Sodium 138, potassium 3.8, chloride 106, carbon dioxide 21, BUN 13, creatinine 0.6, glucose 109, AST 51, ALT 37, total bilirubin 0.4. PT 18.5, INR 1.59. WBC 10.4, hemoglobin 13.2, platelet count 223. MEDICATIONS: Tylenol p.r.n., Eliquis 5 mg p.o. b.i.d., aztreonam, Cardizem drip, D5 normal saline at 100 mL/hour, Cardizem 60 mg p.o. t.i.d., Levemir 40 units subcu at bedtime, Lispro coverage (low protocol), Tapazole 5 mg p.o. daily, Lopressor 25 mg p.o. b.i.d., vancomycin. ASSESSMENT AND PLAN: This is a 77-year-old lady, who presented with atrial fibrillation with rapid ventricular response, most likely secondary to sepsis or some dehydration in light of diarrhea for about 3 days and decreased p.o. intake and hydration. Differential diagnosis causality of atrial fibrillation with rapid ventricular response will include hyperthyroidism (however, the patient has been treated for it), dehydration (the patient is on IV fluid and we will give her 1 L of normal saline bolus to cover for that possibility), sepsis (however, the patient has been treated for it and septic workup is in progress as well as antibiotics continued), venous thromboembolism (however, the patient has been therapeutically anticoagulated. PT and INR are slightly elevated, which may suggest therapeutic anticoagulation by Xa inhibitors - Eliquis). Presently, the patient is on Cardizem drip and Cardizem p.o. was started to overlap with the drip. Her blood pressure is stable. Will get Echo to rule out intracardiac pathology and assess LV size. We will continue to target euvolemia, euglycemia, normothermia and oxygen saturation more than 90%. We will continue with GI prophylaxis. ccm time 40 min Moses Willett MD SAVANAH
--- NOTE | 2018-01-22 13:45 | CP.PCM.CON ---
History of Present Illness - History of Present Illness History of Present Illness: 77 year old female with PMH of CAD, atrial fibrillation on anticoagulation, COPD , obesity with BMI 31 came in [place] [facility] [place] of nausea, shortness of breath and easy fatigability for the past 3 days. She was also having burning sensation on urination as well as loose bowel movement. She denies fevers at home but she was noted to have fever on admission, denies abdominal or flank pain, no chest pain, no cough, no sore throat, no headache or dizziness, no rhinorrhea, no skin rash or pruritus. She was noted to have atrial fibrillation in rapid ventricular response. CT scan of the abdomen and pelvis was done which showed left sided perinephric stranding. She is in the ICU because of the atrial fibrillation. Infectious diseases consult is requested to further evaluate and manage. Review of Systems - Review of Systems All systems: reviewed and no additional remarkable complaints except (as per HPI ) Past Patient History - Infectious Disease Hx of Infectious Diseases: None - Tetanus Immunizations Tetanus Immunization: Unknown - Past Social History Smoking Status: Never Smoked - CARDIAC Hx Cardiac Disorders: Yes Hx Angina: Yes Hx Cardia Arrhythmia: Yes Hx Circulatory Problems: No Hx Congestive Heart Failure: No Hx Heart Murmur: No Hx Heart Transplant: No Hx Hypercholesterolemia: No Hx Hypertension: Yes Hx Internal Defibrillator: No Hx Mitral Valve Prolapse: No Hx Pacemaker: No Hx Peripheral Edema: No Hx Peripheral Vascular Disease: No - PULMONARY Hx Respiratory Disorders: No Hx Asthma: Yes Hx Bronchitis: No Hx Chronic Obstructive Pulmonary Disease (COPD): No Hx Emphysema: No Hx Pneumonia: No Hx Respiratory Aspiration: No Hx Respiratory Tract Infection: No Hx Sleep Apnea: No Hx Tuberculosis: No - NEUROLOGICAL Hx Neurological Disorder: No Hx Alzheimer's Disease: No HX Cerebrovascular Accident: No Hx Dementia: No Hx Dizziness: No Hx Meningitis: No Hx Migraine: No Hx Parkinson's Disease: No Hx Seizures: No Hx Transient Ischemic Attacks (TIA): No - HEENT Hx HEENT Problems: No Hx Blind: No Hx Cataracts: No Hx Deafness: No Hx Difficulty Chewing: No Hx Epistaxis: No Hx Glaucoma: No Hx Macular Degeneration: No - RENAL Hx Chronic Kidney Disease: No Hx Dialysis: No Hx Kidney Stones: No Hx Neurogenic Bladder: No Hx Pyelonephritis: No Hx Renal (Kidney) Cancer: No Hx Renal Failure: No - ENDOCRINE/METABOLIC Hx Endocrine Disorders: No Hx Adrenal Cancer: No Hx Diabetes Insipidus: No Hx Diabetes Mellitus Type 1: No Hx Diabetes Mellitus Type 2: Yes Hx Hyperthyroidism: Yes Hx Hypothyroidism: No Hx Systemic Lupus Erythematosus: No - HEMATOLOGICAL/ONCOLOGICAL Hx Blood Disorders: No Hx AIDS: No Hx Anemia: No Hx Cancer: Yes Hx Chemotherapy: No Hx Cirrhosis: No Hx Hemophilia: No Hx Hepatitis A: No Hx Hepatitis B: No Hx Hepatitis C: No Hx Human Immunodeficiency Virus (HIV): No Hx Metastesis: No Hx Shingles: No Hx Sickle Cell Disease: No Hx Unexplained Bleeding: No - INTEGUMENTARY Hx Dermatological Problems: No Hx Basil Cell: No Hx Eczema: No Hx Melanoma: No Hx Psoriasis: No Hx Squamous Cell: No - MUSCULOSKELETAL/RHEUMATOLOGICAL Hx Musculoskeletal Disorders: Yes Hx Arthritis: No Hx Back Pain: No Hx Degenerative Joint Disease: No Hx Falls: No Hx Fractures: No Hx Gout: No Hx Herniated Disk: No Hx Myasthenia Gravis: No Hx Osteoarthritis: Yes Hx Osteomyelitis: No Hx Osteoporosis: No Hx Rhabdomyolysis: No Hx Spinal Stenosis: No Hx Unsteady Gait: No - GASTROINTESTINAL Hx Gastrointestinal Disorders: No Hx Colostomy: No Hx Crohn's Disease: No Hx Diverticulitis: No Hx Gall Bladder Disease: No Hx Gastroesophageal Reflux: No Hx Ileostomy: No Hx Liver Failure: No Hx Pancreatitis: No HX Swallowing Problems: No Hx Ulcer: No - GENITOURINARY/GYNECOLOGICAL Hx Genitourinary Disorders: No Hx Hematuria: No Hx Incontinence: No Hx Sexually Transmitted Disorders: No Hx Urinary Tract Infection: No - PSYCHIATRIC Hx Psychophysiologic Disorder: No Hx Anxiety: No Hx Bipolar Disorder: No Hx Depression: No Hx Emotional Abuse: No Hx Hallucinations: No Hx Panic Symptoms: No Hx Paranoia: No Hx Post Traumatic Stress Disorder: No Hx Psychosis: No Hx Physical Abuse: No Hx Schizophrenia: No Hx Sexual Abuse: No - SURGICAL HISTORY Hx Hysterectomy: Yes Other/Comment: lumpectomy R breast - ANESTHESIA Hx Anesthesia: Yes Hx Anesthesia Reactions: No Hx Malignant Hyperthermia: No Meds Allergies/Adverse Reactions: Allergies Allergy/AdvReac Type Severity Reaction Status Date / Time Penicillins Allergy RASH Verified 08/09/17 13:24 shrimp Allergy RASH Verified 08/09/17 13:24 clarithromycin AdvReac RASH Verified 08/09/17 13:24 flu vaccine AdvReac FEVER Uncoded 08/14/17 13:05 - Medications Medications: Current Medications Apixaban (Eliquis) 5 mg PO BID MIRNA PRN Reason: Protocol Last Admin: 01/22/18 09:03 Dose: 5 mg Diltiazem HCl (Cardizem) 60 mg PO TID [facility] Last Admin: 01/22/18 09:03 Dose: Not Given diltiaZEM IVPB 100mg in NS (Cardizem 100mg In Ns) 100 mls @ 10 mls/hr IV .Q10H PRN; Protocol; 10 MG/HR PRN Reason: TITRATE PER MD ORDER Last Titration: 01/22/18 09:10 Dose: 0 mg/hr, 0 mls/hr Vancomycin HCl (Vancomycin 1gm) 1 gm in 250 mls @ 167 mls/hr IVPB Q12H MIRNA PRN Reason: Protocol Last Admin: 01/22/18 03:45 Dose: 167 mls/hr Acetaminophen (Ofirmev) 1,000 mg in 100 mls @ 400 mls/hr IVPB Q6H PRN PRN Reason: Temperature > 100.4 Stop: 01/23/18 23:36 Last Admin: 01/22/18 03:41 Dose: 400 mls/hr Dextrose/Sodium Chloride (Dextrose 5%/0.9% Ns 1000 Ml) 1,000 mls @ 100 mls/hr IV .Q10H [facility] Last Admin: 01/22/18 00:48 Dose: 100 mls/hr Aztreonam (Azactam 1 Gm) 100 mls @ 100 mls/hr IVPB Q8 MIRNA PRN Reason: Protocol Stop: 01/29/18 11:16 Insulin Detemir (Levemir) 40 unit SC HS [facility] Insulin Human Lispro (Humalog) 12 units SC AC [facility] Last Admin: 01/22/18 09:03 Dose: 12 units Insulin Human Lispro (Humalog Low) 0 units SC ACHS [facility] PRN Reason: Protocol Last Admin: 01/22/18 07:30 Dose: Not Given Methimazole (Tapazole) 5 mg PO DAILY [facility] Last Admin: 01/22/18 09:04 Dose: 5 mg Metoprolol Tartrate (Lopressor) 25 mg PO BID [facility] Last Admin: 01/22/18 09:04 Dose: 25 mg Physical Exam - Constitutional Appears: Chronically Ill - Head Exam Head Exam: NORMAL INSPECTION - ENT Exam ENT Exam: Mucous Membranes Moist - Neck Exam Neck exam: Negative for: Meningismus - Respiratory Exam Respiratory Exam: Decreased Breath Sounds - Cardiovascular Exam Cardiovascular Exam: +S1, +S2 - GI/Abdominal Exam GI & Abdominal Exam: Soft. absent: Tenderness - Back Exam Back exam: absent: CVA tenderness (L), CVA tenderness (R) Results - Vital Signs Recent Vital Signs: Last Vital Signs Temp 99.8 F H 01/22/18 07:50 Pulse 115 H 01/22/18 11:01 Resp 43 H 01/22/18 11:01 BP 141/72 01/22/18 11:01 Pulse Ox 81 L 01/22/18 11:01 - Labs Result Diagrams: 01/22/18 06:10 01/22/18 06:10 Labs: Laboratory Results - last 24 hr 01/21/18 01/21/18 01/21/18 16:07 17:00 18:00 WBC RBC Hgb Hct MCV MCH MCHC RDW Plt Count MPV Gran % Lymph % (Auto) [place] % (Auto) Eos % (Auto) Baso % (Auto) Gran # Lymph # (Auto) [place] # (Auto) Eos # (Auto) Baso # (Auto) Sodium Potassium Chloride Carbon Dioxide Anion Gap BUN Creatinine Est GFR ( Amer) Est GFR (Non-Af Amer) POC Glucose (mg/dL) 241 H 216 H 195 H Random Glucose Calcium Total Bilirubin AST ALT Alkaline Phosphatase Total Protein Albumin Globulin Albumin/Globulin Ratio 01/21/18 01/21/18 01/21/18 19:01 19:53 20:59 WBC RBC Hgb Hct MCV MCH MCHC RDW Plt Count MPV Gran % Lymph % (Auto) [place] % (Auto) Eos % (Auto) Baso % (Auto) Gran # Lymph # (Auto) [place] # (Auto) Eos # (Auto) Baso # (Auto) Sodium Potassium Chloride Carbon Dioxide Anion Gap BUN Creatinine Est GFR ( Amer) Est GFR (Non-Af Amer) POC Glucose (mg/dL) 138 H 117 H 124 H Random Glucose Calcium Total Bilirubin AST ALT Alkaline Phosphatase Total Protein Albumin Globulin Albumin/Globulin Ratio 01/21/18 01/21/18 01/21/18 22:27 23:06 23:39 WBC RBC Hgb Hct MCV MCH MCHC RDW Plt Count MPV Gran % Lymph % (Auto) [place] % (Auto) Eos % (Auto) Baso % (Auto) Gran # Lymph # (Auto) [place] # (Auto) Eos # (Auto) Baso # (Auto) Sodium 137 Potassium 3.7 Chloride 107 Carbon Dioxide 19 L Anion Gap 14 BUN 16 Creatinine 0.7 Est GFR ( Amer) > 60 Est GFR (Non-Af Amer) > 60 POC Glucose (mg/dL) 147 H 119 H Random Glucose 127 H Calcium 7.8 L Total Bilirubin 0.5 AST 40 H D ALT 24 Alkaline Phosphatase 50 Total Protein 5.9 Albumin 3.0 Globulin 2.9 Albumin/Globulin Ratio 1.0 L 01/22/18 01/22/18 01/22/18 00:28 00:59 01:54 WBC RBC Hgb Hct MCV MCH MCHC RDW Plt Count MPV Gran % Lymph % (Auto) [place] % (Auto) Eos % (Auto) Baso % (Auto) Gran # Lymph # (Auto) [place] # (Auto) Eos # (Auto) Baso # (Auto) Sodium Potassium Chloride Carbon Dioxide Anion Gap BUN Creatinine Est GFR ( Amer) Est GFR (Non-Af Amer) POC Glucose (mg/dL) 131 H 132 H 127 H Random Glucose Calcium Total Bilirubin AST ALT Alkaline Phosphatase Total Protein Albumin Globulin Albumin/Globulin Ratio 01/22/18 01/22/18 01/22/18 03:03 06:10 06:10 WBC 10.4 D RBC 4.22 Hgb 13.2 Hct 39.3 MCV 93.1 MCH 31.3 MCHC 33.6 RDW 12.5 Plt Count 223 MPV 11.6 H Gran % 77.9 H Lymph % (Auto) 8.5 L [place] % (Auto) 13.0 H Eos % (Auto) 0.4 L Baso % (Auto) 0.2 Gran # 8.12 H Lymph # (Auto) 0.9 L [place] # (Auto) 1.4 H Eos # (Auto) 0.0 Baso # (Auto) 0.02 Sodium 138 Potassium 3.8 Chloride 106 Carbon Dioxide 21 Anion Gap 15 BUN 13 Creatinine 0.6 L Est GFR ( Amer) > 60 Est GFR (Non-Af Amer) > 60 POC Glucose (mg/dL) 130 H Random Glucose 109 Calcium 7.7 L Total Bilirubin 0.4 AST 51 H D ALT 37 Alkaline Phosphatase 53 Total Protein 5.8 Albumin 2.9 L Globulin 2.9 Albumin/Globulin Ratio 1.0 L Assessment & Plan - Assessment and Plan (Free Text) Plan: Assessment Severe sepsis with hypoxic respiratory failure due to left sided pyelonephritis on top of atrial fibrillation with rapid ventricular response atrial fibrillation on anticoagulation COPD obesity with BMI 31 Plan Started the patient on Azactam and Vancomycin pending blood and urine cx; reviewed CT A/P will follow up further Cardiology recommendations regarding atrial fibrillation will monitor clinically
--- NOTE | 2018-01-22 14:25 | CP.CCUPN ---
CCU Subjective - Physician Review Events Since Last Encounter (Free Text): Didiroyce Jessicachapis, PGY-1 ICU Progress Note Patient seen and examined at bedside. She had fever of 102 overnight at 11pm and was given tylenol 650mg PO. She is currently afebrile. Insulin drip stopped last night and now on subcutaneous insulin. Appetite is good and patient is tolerating food. She admits to SOB. She denies CP, abdominal pain and urinary complaints. 12 point ROS noted here, otherwise negative. CCU Objective - Vital Signs / Intake & Output Vital Signs (Last 4 hours): Vital Signs Temp Pulse Resp BP Pulse Ox 01/22/18 13:31 147 H 108/55 L 01/22/18 13:30 147 H 108/55 L 01/22/18 13:29 147 H 108/55 L 01/22/18 12:20 102.6 F H 149 H 32 H 97 01/22/18 12:16 102.6 F H 149 H 97 01/22/18 12:10 102.7 F H 136 H 94 L 01/22/18 12:07 102.7 F H 145 H 44 H 105/63 96 01/22/18 12:02 102.7 F H 163 H 97 01/22/18 12:00 102.7 F H 156 H 47 H 97 01/22/18 11:50 102.9 F H 150 H 41 H 99 01/22/18 11:40 130 H 46 H 85 L 01/22/18 11:30 136 H 50 H 95 01/22/18 11:20 120 H 44 H 80 L 01/22/18 11:10 140 H 42 H 77 L 01/22/18 11:01 115 H 43 H 141/72 81 L 01/22/18 11:00 134 H 45 H 86 L 01/22/18 10:50 110 H 42 H 97 01/22/18 10:40 131 H 37 H 87 L 01/22/18 10:30 94 H 44 H 94 L 01/22/18 10:20 80 27 H 82 L 01/22/18 10:10 90 43 H 80 L Intake and Output (Last 8hrs): Intake & Output 01/21/18 01/22/18 01/22/18 22:59 06:59 14:59 Intake Total 2840 1451 1535 Output Total 475 800 Balance 2365 651 1535 Intake: IV 2425 1451 1175 .9 bolus 1000 Cardizem 25 IVPB 100 Left Antecubital 2200 Left Hand 115 1350 Oral 150 360 Other 265 Output: Urine 475 800 Urethral (Gill) 475 800 Other: # Bowel Movements 1 - Physical Exam Head: Positive for: Atraumatic, Normocephalic Extroacular Muscles: Positive for: EOMI Conjunctiva: Positive for: Normal Mouth: Positive for: Dry Pharnyx: Positive for: Normal Nose (External): Positive for: Atraumatic Neck: Positive for: Normal Range of Motion. Negative for: MIDLINE TENDERNESS, JVD, Lymphadenopathy Respiratory/Chest: Positive for: Clear to Auscultation, Good Air Exchange. Negative for: Respiratory Distress, Accessory Muscle Use, Rales, Rhonchi Cardiovascular: Positive for: Irregular Rhythm, Peripheal Pulses Present, Tachycardic (tachy at 180s on monitor). Negative for: Murmurs Abdomen: Negative for: Tenderness, Distention, Peritoneal Signs, Rebound, Guarding Back: Positive for: Normal Inspection Upper Extremity: Positive for: Normal Inspection, NORMAL PULSES. Negative for: Cyanosis, Edema Lower Extremity: Positive for: Normal Inspection, NORMAL PULSES. Negative for: Edema, CALF TENDERNESS Neurological: Positive for: GCS=15, Speech Normal, Motor Func Grossly Intact Skin: Positive for: Warm, Dry, Normal Color. Negative for: Rashes Lymphatic: Negative for: Cervical Adenopathy Psychiatric: Positive for: Alert, Oriented x 3, Normal Insight, Normal Concentration - Medications Active Medications: Active Medications Generic Name Dose Route Start Last Admin Trade Name Freq PRN Reason Stop Dose Admin Apixaban 5 mg 01/21/18 18:30 01/22/18 09:03 Eliquis PO 5 mg BID MIRNA Administration Protocol diltiaZEM IVPB 100mg in NS 100 mls @ 10 mls/hr 01/21/18 15:02 01/22/18 13:50 Cardizem 100mg In Ns IV 0 mg/hr .Q10H PRN 0 mls/hr TITRATE PER MD ORDER Titration Protocol 10 MG/HR Vancomycin HCl 1 gm in 250 mls @ 167 mls/hr 01/21/18 16:45 01/22/18 03:45 Vancomycin 1gm IVPB 167 mls/hr Q12H MIRNA Administration Protocol Acetaminophen 1,000 mg in 100 mls @ 400 mls/hr 01/21/18 23:35 01/22/18 11:23 Ofirmev IVPB 01/23/18 23:36 400 mls/hr Q6H PRN Administration Temperature > 100.4 Dextrose/Sodium Chloride 1,000 mls @ 100 mls/hr 01/22/18 00:45 01/22/18 12:56 Dextrose 5%/0.9% Ns 1000 Ml IV 100 mls/hr .Q10H MIRNA Administration Aztreonam 100 mls @ 100 mls/hr 01/22/18 11:15 01/22/18 11:16 Azactam 1 Gm IVPB 01/29/18 11:16 Not Given Q8 MIRNA Protocol Insulin Detemir 40 unit 01/22/18 22:00 Levemir SC HS MIRNA Insulin Human Lispro 12 units 01/22/18 07:30 01/22/18 11:26 Humalog SC 12 units AC MIRNA Administration Insulin Human Lispro 0 units 01/22/18 07:30 01/22/18 11:26 Humalog Low SC 1 units ACHS MIRNA Administration Protocol Methimazole 5 mg 01/21/18 16:45 01/22/18 09:04 Tapazole PO 5 mg DAILY MIRNA Administration Metoprolol Tartrate 25 mg 01/21/18 18:00 01/22/18 09:04 Lopressor PO 25 mg BID MIRNA Administration Propranolol HCl 20 mg 01/22/18 14:00 01/22/18 13:30 Inderal PO 20 mg TID MIRNA Administration Verapamil HCl 40 mg 01/22/18 14:00 01/22/18 13:29 Calan Tab PO 40 mg TID MIRNA Administration Verapamil HCl 2.5 mg 01/22/18 13:05 01/22/18 13:31 Verapamil Inj IVP 2.5 mg Q6H PRN Administration for heart rate >130 - Patient Studies Lab Studies: Lab Studies 01/22/18 01/22/18 01/22/18 Range/Units 06:10 06:10 03:03 WBC 10.4 D (4.5-11.0) 10^3/ul RBC 4.22 (3.5-6.1) 10^6/uL Hgb 13.2 (12.0-16.0) g/dL Hct 39.3 (36.0-48.0) % MCV 93.1 (80.0-105.0) fl MCH 31.3 (25.0-35.0) pg MCHC 33.6 (31.0-37.0) g/dl RDW 12.5 (11.5-14.5) % Plt Count 223 (120.0-450.0) 10^3/uL MPV 11.6 H (7.0-11.0) fl Gran % 77.9 H (50.0-68.0) % Lymph % (Auto) 8.5 L (22.0-35.0) % [place] % (Auto) 13.0 H (1.0-6.0) % Eos % (Auto) 0.4 L (1.5-5.0) % Baso % (Auto) 0.2 (0.0-3.0) % Gran # 8.12 H (1.4-6.5) Lymph # (Auto) 0.9 L (1.2-3.4) [place] # (Auto) 1.4 H (0.1-0.6) Eos # (Auto) 0.0 (0.0-0.7) Baso # (Auto) 0.02 (0.0-2.0) K/mm3 Sodium 138 (132-148) mmol/L Potassium 3.8 (3.6-5.0) mmol/L Chloride 106 (98-107) mmol/L Carbon Dioxide 21 (21-33) mmol/L Anion Gap 15 (10-20) BUN 13 (7-21) mg/dL Creatinine 0.6 L (0.7-1.2) mg/dl Est GFR ( Amer) > 60 Est GFR (Non-Af Amer) > 60 POC Glucose (mg/dL) 130 H (65-110) mg/dL Random Glucose 109 (70-110) mg/dL Calcium 7.7 L (8.4-10.5) mg/dL Total Bilirubin 0.4 (0.2-1.3) mg/dL AST 51 H D (14-36) U/L ALT 37 (7-56) U/L Alkaline Phosphatase 53 (38-126) U/L Total Protein 5.8 (5.8-8.3) g/dL Albumin 2.9 L (3.0-4.8) g/dL Globulin 2.9 gm/dL Albumin/Globulin Ratio 1.0 L (1.1-1.8) 01/22/18 01/22/18 01/22/18 Range/Units 01:54 00:59 00:28 WBC (4.5-11.0) 10^3/ul RBC (3.5-6.1) 10^6/uL Hgb (12.0-16.0) g/dL Hct (36.0-48.0) % MCV (80.0-105.0) fl MCH (25.0-35.0) pg MCHC (31.0-37.0) g/dl RDW (11.5-14.5) % Plt Count (120.0-450.0) 10^3/uL MPV (7.0-11.0) fl Gran % (50.0-68.0) % Lymph % (Auto) (22.0-35.0) % [place] % (Auto) (1.0-6.0) % Eos % (Auto) (1.5-5.0) % Baso % (Auto) (0.0-3.0) % Gran # (1.4-6.5) Lymph # (Auto) (1.2-3.4) [place] # (Auto) (0.1-0.6) Eos # (Auto) (0.0-0.7) Baso # (Auto) (0.0-2.0) K/mm3 Sodium (132-148) mmol/L Potassium (3.6-5.0) mmol/L Chloride (98-107) mmol/L Carbon Dioxide (21-33) mmol/L Anion Gap (10-20) BUN (7-21) mg/dL Creatinine (0.7-1.2) mg/dl Est GFR ( Amer) Est GFR (Non-Af Amer) POC Glucose (mg/dL) 127 H 132 H 131 H (65-110) mg/dL Random Glucose (70-110) mg/dL Calcium (8.4-10.5) mg/dL Total Bilirubin (0.2-1.3) mg/dL AST (14-36) U/L ALT (7-56) U/L Alkaline Phosphatase (38-126) U/L Total Protein (5.8-8.3) g/dL Albumin (3.0-4.8) g/dL Globulin gm/dL Albumin/Globulin Ratio (1.1-1.8) 01/21/18 01/21/18 01/21/18 Range/Units 23:39 23:06 22:27 WBC (4.5-11.0) 10^3/ul RBC (3.5-6.1) 10^6/uL Hgb (12.0-16.0) g/dL Hct (36.0-48.0) % MCV (80.0-105.0) fl MCH (25.0-35.0) pg MCHC (31.0-37.0) g/dl RDW (11.5-14.5) % Plt Count (120.0-450.0) 10^3/uL MPV (7.0-11.0) fl Gran % (50.0-68.0) % Lymph % (Auto) (22.0-35.0) % [place] % (Auto) (1.0-6.0) % Eos % (Auto) (1.5-5.0) % Baso % (Auto) (0.0-3.0) % Gran # (1.4-6.5) Lymph # (Auto) (1.2-3.4) [place] # (Auto) (0.1-0.6) Eos # (Auto) (0.0-0.7) Baso # (Auto) (0.0-2.0) K/mm3 Sodium 137 (132-148) mmol/L Potassium 3.7 (3.6-5.0) mmol/L Chloride 107 (98-107) mmol/L Carbon Dioxide 19 L (21-33) mmol/L Anion Gap 14 (10-20) BUN 16 (7-21) mg/dL Creatinine 0.7 (0.7-1.2) mg/dl Est GFR ( Amer) > 60 Est GFR (Non-Af Amer) > 60 POC Glucose (mg/dL) 119 H 147 H (65-110) mg/dL Random Glucose 127 H (70-110) mg/dL Calcium 7.8 L (8.4-10.5) mg/dL Total Bilirubin 0.5 (0.2-1.3) mg/dL AST 40 H D (14-36) U/L ALT 24 (7-56) U/L Alkaline Phosphatase 50 (38-126) U/L Total Protein 5.9 (5.8-8.3) g/dL Albumin 3.0 (3.0-4.8) g/dL Globulin 2.9 gm/dL Albumin/Globulin Ratio 1.0 L (1.1-1.8) 01/21/18 01/21/18 01/21/18 Range/Units 20:59 19:53 19:01 WBC (4.5-11.0) 10^3/ul RBC (3.5-6.1) 10^6/uL Hgb (12.0-16.0) g/dL Hct (36.0-48.0) % MCV (80.0-105.0) fl MCH (25.0-35.0) pg MCHC (31.0-37.0) g/dl RDW (11.5-14.5) % Plt Count (120.0-450.0) 10^3/uL MPV (7.0-11.0) fl Gran % (50.0-68.0) % Lymph % (Auto) (22.0-35.0) % [place] % (Auto) (1.0-6.0) % Eos % (Auto) (1.5-5.0) % Baso % (Auto) (0.0-3.0) % Gran # (1.4-6.5) Lymph # (Auto) (1.2-3.4) [place] # (Auto) (0.1-0.6) Eos # (Auto) (0.0-0.7) Baso # (Auto) (0.0-2.0) K/mm3 Sodium (132-148) mmol/L Potassium (3.6-5.0) mmol/L Chloride (98-107) mmol/L Carbon Dioxide (21-33) mmol/L Anion Gap (10-20) BUN (7-21) mg/dL Creatinine (0.7-1.2) mg/dl Est GFR ( Amer) Est GFR (Non-Af Amer) POC Glucose (mg/dL) 124 H 117 H 138 H (65-110) mg/dL Random Glucose (70-110) mg/dL Calcium (8.4-10.5) mg/dL Total Bilirubin (0.2-1.3) mg/dL AST (14-36) U/L ALT (7-56) U/L Alkaline Phosphatase (38-126) U/L Total Protein (5.8-8.3) g/dL Albumin (3.0-4.8) g/dL Globulin gm/dL Albumin/Globulin Ratio (1.1-1.8) 01/21/18 01/21/18 01/21/18 Range/Units 18:00 17:00 16:07 WBC (4.5-11.0) 10^3/ul RBC (3.5-6.1) 10^6/uL Hgb (12.0-16.0) g/dL Hct (36.0-48.0) % MCV (80.0-105.0) fl MCH (25.0-35.0) pg MCHC (31.0-37.0) g/dl RDW (11.5-14.5) % Plt Count (120.0-450.0) 10^3/uL MPV (7.0-11.0) fl Gran % (50.0-68.0) % Lymph % (Auto) (22.0-35.0) % [place] % (Auto) (1.0-6.0) % Eos % (Auto) (1.5-5.0) % Baso % (Auto) (0.0-3.0) % Gran # (1.4-6.5) Lymph # (Auto) (1.2-3.4) [place] # (Auto) (0.1-0.6) Eos # (Auto) (0.0-0.7) Baso # (Auto) (0.0-2.0) K/mm3 Sodium (132-148) mmol/L Potassium (3.6-5.0) mmol/L Chloride (98-107) mmol/L Carbon Dioxide (21-33) mmol/L Anion Gap (10-20) BUN (7-21) mg/dL Creatinine (0.7-1.2) mg/dl Est GFR ( Amer) Est GFR (Non-Af Amer) POC Glucose (mg/dL) 195 H 216 H 241 H (65-110) mg/dL Random Glucose (70-110) mg/dL Calcium (8.4-10.5) mg/dL Total Bilirubin (0.2-1.3) mg/dL AST (14-36) U/L ALT (7-56) U/L Alkaline Phosphatase (38-126) U/L Total Protein (5.8-8.3) g/dL Albumin (3.0-4.8) g/dL Globulin gm/dL Albumin/Globulin Ratio (1.1-1.8) Laboratory Results - last 24 hr 01/21/18 01/21/18 01/21/18 16:07 17:00 18:00 WBC RBC Hgb Hct MCV MCH MCHC RDW Plt Count MPV Gran % Lymph % (Auto) [place] % (Auto) Eos % (Auto) Baso % (Auto) Gran # Lymph # (Auto) [place] # (Auto) Eos # (Auto) Baso # (Auto) Sodium Potassium Chloride Carbon Dioxide Anion Gap BUN Creatinine Est GFR ( Amer) Est GFR (Non-Af Amer) POC Glucose (mg/dL) 241 H 216 H 195 H Random Glucose Calcium Total Bilirubin AST ALT Alkaline Phosphatase Total Protein Albumin Globulin Albumin/Globulin Ratio 01/21/18 01/21/18 01/21/18 19:01 19:53 20:59 WBC RBC Hgb Hct MCV MCH MCHC RDW Plt Count MPV Gran % Lymph % (Auto) [place] % (Auto) Eos % (Auto) Baso % (Auto) Gran # Lymph # (Auto) [place] # (Auto) Eos # (Auto) Baso # (Auto) Sodium Potassium Chloride Carbon Dioxide Anion Gap BUN Creatinine Est GFR ( Amer) Est GFR (Non-Af Amer) POC Glucose (mg/dL) 138 H 117 H 124 H Random Glucose Calcium Total Bilirubin AST ALT Alkaline Phosphatase Total Protein Albumin Globulin Albumin/Globulin Ratio 01/21/18 01/21/18 01/21/18 22:27 23:06 23:39 WBC RBC Hgb Hct MCV MCH MCHC RDW Plt Count MPV Gran % Lymph % (Auto) [place] % (Auto) Eos % (Auto) Baso % (Auto) Gran # Lymph # (Auto) [place] # (Auto) Eos # (Auto) Baso # (Auto) Sodium 137 Potassium 3.7 Chloride 107 Carbon Dioxide 19 L Anion Gap 14 BUN 16 Creatinine 0.7 Est GFR ( Amer) > 60 Est GFR (Non-Af Amer) > 60 POC Glucose (mg/dL) 147 H 119 H Random Glucose 127 H Calcium 7.8 L Total Bilirubin 0.5 AST 40 H D ALT 24 Alkaline Phosphatase 50 Total Protein 5.9 Albumin 3.0 Globulin 2.9 Albumin/Globulin Ratio 1.0 L 01/22/18 01/22/18 01/22/18 00:28 00:59 01:54 WBC RBC Hgb Hct MCV MCH MCHC RDW Plt Count MPV Gran % Lymph % (Auto) [place] % (Auto) Eos % (Auto) Baso % (Auto) Gran # Lymph # (Auto) [place] # (Auto) Eos # (Auto) Baso # (Auto) Sodium Potassium Chloride Carbon Dioxide Anion Gap BUN Creatinine Est GFR ( Amer) Est GFR (Non-Af Amer) POC Glucose (mg/dL) 131 H 132 H 127 H Random Glucose Calcium Total Bilirubin AST ALT Alkaline Phosphatase Total Protein Albumin Globulin Albumin/Globulin Ratio 01/22/18 01/22/18 01/22/18 03:03 06:10 06:10 WBC 10.4 D RBC 4.22 Hgb 13.2 Hct 39.3 MCV 93.1 MCH 31.3 MCHC 33.6 RDW 12.5 Plt Count 223 MPV 11.6 H Gran % 77.9 H Lymph % (Auto) 8.5 L [place] % (Auto) 13.0 H Eos % (Auto) 0.4 L Baso % (Auto) 0.2 Gran # 8.12 H Lymph # (Auto) 0.9 L [place] # (Auto) 1.4 H Eos # (Auto) 0.0 Baso # (Auto) 0.02 Sodium 138 Potassium 3.8 Chloride 106 Carbon Dioxide 21 Anion Gap 15 BUN 13 Creatinine 0.6 L Est GFR ( Amer) > 60 Est GFR (Non-Af Amer) > 60 POC Glucose (mg/dL) 130 H Random Glucose 109 Calcium 7.7 L Total Bilirubin 0.4 AST 51 H D ALT 37 Alkaline Phosphatase 53 Total Protein 5.8 Albumin 2.9 L Globulin 2.9 Albumin/Globulin Ratio 1.0 L Fingerstick Blood Sugar Results: 181 Critical Care Progress Note - Nutrition Nutrition: Nutrition Category Date Time Status Consistent Carbohydrate [DIET] Diets 01/22/18 Breakfast Ordered Assessment/Plan - Assessment and Plan (Free Text) Assessment: Assessment: This is a 77 year old female with PMH significant for Afib on Eliquis, CAD, COPD , DKA mild, managed in the ICU for afib with RVR secondary due to possible dehydration, hyperthroidism and sepsis from pyelonephritis. Plan: Neuro: -maintain normothermia. -AAO x3, moving extremities spontaneously past midline Cardio: -maintain MAP>65 -will monitor vitals including HR and BP closely. Current HR at 140-150s and BP 110s/50s. -taper down cardizem drip as tolerated -propanolol and verapimil added today. -cardiology on consult, Dr Modi Lungs: -SaO2 >90% -supplementary O2 PRN -CXR 01/21 shows no active disease Renal: -maintain euvolemia -avoid nephrotoxic agents, hypochloremia -replace electrolytes as needed -BUN/Cr today is 13/0.6 WNL. -CT abd/pelvis 01/21 showed L sided pernephritic stranding. No hydronephrosis, or evidence of obstructing stone. Possible secondary to recently passed stone or pyelonephritis. clinical correlation suggested. Heme: -Hg today is 13.2 -on eliquis Endo: -maintain euglycemia -insulin SC, normal anion gap. -methimazole 5mg PO daily, history of hyperthyroidism, most recent TSH is WNL. ID: -WBC is 10.4 today down from 20.7 yesterday. Fevers of 102 overnight, currently afebrile -Aztreonam and vanc day 2 for likely pyelonephritis -stool studies, c diff pending -urine culture, MRSA screen pending. blood culture negative after 24 hours -ID on consult, Dr. Lyons -GI: -consistent carb diet
--- NOTE | 2018-01-22 14:26 | CP.PCM.HP ---
<Surekha Thomson - Last Filed: 01/22/18 16:07> History of Present Illness - History of Present Illness History of Present Illness: PGY-[address] Woodruff Admission: Sepsis, Afib RVR Ms Chavis, 77 F with PMHx of CAD, Afib on Eliquis, COPD, DM, hyperthryodism presented to the ER with weakness, fatigue, SOB, dysuria, and diarrhea for 3 days. patient has not been able to ambulate for last 3-4 days, has had watery, profuse diarrhea, without fever, chills, mucus or blood. (+) dysuria. Denies recent abx use. In the ER noted to be in rapid Afib with RVR, given metoprolol IV, Digoxin IV, and placed on Caridzem drip. CT scan of the abdomen and pelvis was done which showed left sided perinephric stranding. She has sepsis due to pyelonephritis, received fluid resuscitation of 2000cc. received cipro IV. Her sugar was in 380s , was put on insulin gtt, now d/c. Pt developed fever 102 in ICU. ABX upgraded ti aztreiman and vanco. Her HR remains uncontrolled with A fib RVR. she remained at ICU for HR control. PMhx: TIA CAD s/p stent (2009). htn, Afib on Eliquis, COPD, Hx R breast cancer s/p lumpectomy 2010, no chemo/rad depression DM2 Hyperthyrodism PSHx R lumpectomy 2010 hysterectomu Hx Appendectomy, Cholecystectomy Hx Cardiac Catheterization: Yes (06/27/2012) Hx Coronary Stent: Yes (2009) FH. NC SH: denies smoking, etoh, drug use, retired All: Penicillin, clarithromycin, shrimp, flu vaccine Med: as per EMR Present on Admission - Present on Admission Any Indicators Present on Admission: Yes History of Uncontrolled Diabetes: Yes Past Patient History - Infectious Disease Hx of Infectious Diseases: None - Tetanus Immunizations Tetanus Immunization: Unknown - Past Social History Smoking Status: Never Smoked - CARDIAC Hx Cardiac Disorders: Yes Hx Angina: Yes Hx Cardia Arrhythmia: Yes Hx Circulatory Problems: No Hx Congestive Heart Failure: No Hx Heart Murmur: No Hx Heart Transplant: No Hx Hypercholesterolemia: No Hx Hypertension: Yes Hx Internal Defibrillator: No Hx Mitral Valve Prolapse: No Hx Pacemaker: No Hx Peripheral Edema: No Hx Peripheral Vascular Disease: No - PULMONARY Hx Respiratory Disorders: No Hx Asthma: Yes Hx Bronchitis: No Hx Chronic Obstructive Pulmonary Disease (COPD): No Hx Emphysema: No Hx Pneumonia: No Hx Respiratory Aspiration: No Hx Respiratory Tract Infection: No Hx Sleep Apnea: No Hx Tuberculosis: No - NEUROLOGICAL Hx Neurological Disorder: No Hx Alzheimer's Disease: No HX Cerebrovascular Accident: No Hx Dementia: No Hx Dizziness: No Hx Meningitis: No Hx Migraine: No Hx Parkinson's Disease: No Hx Seizures: No Hx Transient Ischemic Attacks (TIA): No - HEENT Hx HEENT Problems: No Hx Blind: No Hx Cataracts: No Hx Deafness: No Hx Difficulty Chewing: No Hx Epistaxis: No Hx Glaucoma: No Hx Macular Degeneration: No - RENAL Hx Chronic Kidney Disease: No Hx Dialysis: No Hx Kidney Stones: No Hx Neurogenic Bladder: No Hx Pyelonephritis: No Hx Renal (Kidney) Cancer: No Hx Renal Failure: No - ENDOCRINE/METABOLIC Hx Endocrine Disorders: No Hx Adrenal Cancer: No Hx Diabetes Insipidus: No Hx Diabetes Mellitus Type 1: No Hx Diabetes Mellitus Type 2: Yes Hx Hyperthyroidism: Yes Hx Hypothyroidism: No Hx Systemic Lupus Erythematosus: No - HEMATOLOGICAL/ONCOLOGICAL Hx Blood Disorders: No Hx AIDS: No Hx Anemia: No Hx Cancer: Yes Hx Chemotherapy: No Hx Cirrhosis: No Hx Hemophilia: No Hx Hepatitis A: No Hx Hepatitis B: No Hx Hepatitis C: No Hx Human Immunodeficiency Virus (HIV): No Hx Metastesis: No Hx Shingles: No Hx Sickle Cell Disease: No Hx Unexplained Bleeding: No - INTEGUMENTARY Hx Dermatological Problems: No Hx Basil Cell: No Hx Eczema: No Hx Melanoma: No Hx Psoriasis: No Hx Squamous Cell: No - MUSCULOSKELETAL/RHEUMATOLOGICAL Hx Musculoskeletal Disorders: Yes Hx Arthritis: No Hx Back Pain: No Hx Degenerative Joint Disease: No Hx Falls: No Hx Fractures: No Hx Gout: No Hx Herniated Disk: No Hx Myasthenia Gravis: No Hx Osteoarthritis: Yes Hx Osteomyelitis: No Hx Osteoporosis: No Hx Rhabdomyolysis: No Hx Spinal Stenosis: No Hx Unsteady Gait: No - GASTROINTESTINAL Hx Gastrointestinal Disorders: No Hx Colostomy: No Hx Crohn's Disease: No Hx Diverticulitis: No Hx Gall Bladder Disease: No Hx Gastroesophageal Reflux: No Hx Ileostomy: No Hx Liver Failure: No Hx Pancreatitis: No HX Swallowing Problems: No Hx Ulcer: No - GENITOURINARY/GYNECOLOGICAL Hx Genitourinary Disorders: No Hx Hematuria: No Hx Incontinence: No Hx Sexually Transmitted Disorders: No Hx Urinary Tract Infection: No - PSYCHIATRIC Hx Psychophysiologic Disorder: No Hx Anxiety: No Hx Bipolar Disorder: No Hx Depression: No Hx Emotional Abuse: No Hx Hallucinations: No Hx Panic Symptoms: No Hx Paranoia: No Hx Post Traumatic Stress Disorder: No Hx Psychosis: No Hx Physical Abuse: No Hx Schizophrenia: No Hx Sexual Abuse: No - SURGICAL HISTORY Hx Hysterectomy: Yes Other/Comment: lumpectomy R breast - ANESTHESIA Hx Anesthesia: Yes Hx Anesthesia Reactions: No Hx Malignant Hyperthermia: No Meds Allergies/Adverse Reactions: Allergies Allergy/AdvReac Type Severity Reaction Status Date / Time Penicillins Allergy RASH Verified 08/09/17 13:24 shrimp Allergy RASH Verified 08/09/17 13:24 clarithromycin AdvReac RASH Verified 08/09/17 13:24 flu vaccine AdvReac FEVER Uncoded 08/14/17 13:05 Physical Exam - Constitutional Appears: No Acute Distress - Head Exam Head Exam: ATRAUMATIC, NORMAL INSPECTION, NORMOCEPHALIC - Eye Exam Eye Exam: EOMI, Normal appearance, PERRL. absent: Scleral icterus Pupil Exam: NORMAL ACCOMODATION - ENT Exam ENT Exam: Mucous Membranes Moist - Neck Exam Additional comments: supple - Respiratory Exam Respiratory Exam: Clear to Auscultation Bilateral, NORMAL BREATHING PATTERN. absent: Rales, Rhonchi, Wheezes - Cardiovascular Exam Cardiovascular Exam: Irregular Rhythm, +S1, +S2, Systolic Murmur - GI/Abdominal Exam GI & Abdominal Exam: Normal Bowel Sounds, Soft, Tenderness. absent: Distended, Mass, Rigid Additional comments: suprapubic - Back Exam Back exam: absent: CVA tenderness (L), CVA tenderness (R) - Neurological Exam Neurological exam: Alert, Oriented x3 - Psychiatric Exam Psychiatric exam: Normal Affect, Normal Mood - Skin Skin Exam: Dry, Warm Results - Vital Signs Recent Vital Signs: Last Vital Signs Temp 102.6 F H 01/22/18 12:20 Pulse 147 H 01/22/18 13:31 Resp 32 H 01/22/18 12:20 BP 108/55 L 01/22/18 13:31 Pulse Ox 97 01/22/18 12:20 - Labs Result Diagrams: 01/22/18 06:10 01/22/18 06:10 Labs: Laboratory Results - last 24 hr 01/21/18 01/21/18 01/21/18 16:07 17:00 18:00 WBC RBC Hgb Hct MCV MCH MCHC RDW Plt Count MPV Gran % Lymph % (Auto) [place] % (Auto) Eos % (Auto) Baso % (Auto) Gran # Lymph # (Auto) [place] # (Auto) Eos # (Auto) Baso # (Auto) Sodium Potassium Chloride Carbon Dioxide Anion Gap BUN Creatinine Est GFR ( Amer) Est GFR (Non-Af Amer) POC Glucose (mg/dL) 241 H 216 H 195 H Random Glucose Calcium Total Bilirubin AST ALT Alkaline Phosphatase Total Protein Albumin Globulin Albumin/Globulin Ratio 01/21/18 01/21/18 01/21/18 19:01 19:53 20:59 WBC RBC Hgb Hct MCV MCH MCHC RDW Plt Count MPV Gran % Lymph % (Auto) [place] % (Auto) Eos % (Auto) Baso % (Auto) Gran # Lymph # (Auto) [place] # (Auto) Eos # (Auto) Baso # (Auto) Sodium Potassium Chloride Carbon Dioxide Anion Gap BUN Creatinine Est GFR ( Amer) Est GFR (Non-Af Amer) POC Glucose (mg/dL) 138 H 117 H 124 H Random Glucose Calcium Total Bilirubin AST ALT Alkaline Phosphatase Total Protein Albumin Globulin Albumin/Globulin Ratio 01/21/18 01/21/18 01/21/18 22:27 23:06 23:39 WBC RBC Hgb Hct MCV MCH MCHC RDW Plt Count MPV Gran % Lymph % (Auto) [place] % (Auto) Eos % (Auto) Baso % (Auto) Gran # Lymph # (Auto) [place] # (Auto) Eos # (Auto) Baso # (Auto) Sodium 137 Potassium 3.7 Chloride 107 Carbon Dioxide 19 L Anion Gap 14 BUN 16 Creatinine 0.7 Est GFR ( Amer) > 60 Est GFR (Non-Af Amer) > 60 POC Glucose (mg/dL) 147 H 119 H Random Glucose 127 H Calcium 7.8 L Total Bilirubin 0.5 AST 40 H D ALT 24 Alkaline Phosphatase 50 Total Protein 5.9 Albumin 3.0 Globulin 2.9 Albumin/Globulin Ratio 1.0 L 01/22/18 01/22/18 01/22/18 00:28 00:59 01:54 WBC RBC Hgb Hct MCV MCH MCHC RDW Plt Count MPV Gran % Lymph % (Auto) [place] % (Auto) Eos % (Auto) Baso % (Auto) Gran # Lymph # (Auto) [place] # (Auto) Eos # (Auto) Baso # (Auto) Sodium Potassium Chloride Carbon Dioxide Anion Gap BUN Creatinine Est GFR ( Amer) Est GFR (Non-Af Amer) POC Glucose (mg/dL) 131 H 132 H 127 H Random Glucose Calcium Total Bilirubin AST ALT Alkaline Phosphatase Total Protein Albumin Globulin Albumin/Globulin Ratio 01/22/18 01/22/18 01/22/18 03:03 06:10 06:10 WBC 10.4 D RBC 4.22 Hgb 13.2 Hct 39.3 MCV 93.1 MCH 31.3 MCHC 33.6 RDW 12.5 Plt Count 223 MPV 11.6 H Gran % 77.9 H Lymph % (Auto) 8.5 L [place] % (Auto) 13.0 H Eos % (Auto) 0.4 L Baso % (Auto) 0.2 Gran # 8.12 H Lymph # (Auto) 0.9 L [place] # (Auto) 1.4 H Eos # (Auto) 0.0 Baso # (Auto) 0.02 Sodium 138 Potassium 3.8 Chloride 106 Carbon Dioxide 21 Anion Gap 15 BUN 13 Creatinine 0.6 L Est GFR ( Amer) > 60 Est GFR (Non-Af Amer) > 60 POC Glucose (mg/dL) 130 H Random Glucose 109 Calcium 7.7 L Total Bilirubin 0.4 AST 51 H D ALT 37 Alkaline Phosphatase 53 Total Protein 5.8 Albumin 2.9 L Globulin 2.9 Albumin/Globulin Ratio 1.0 L Assessment & Plan - Assessment and Plan (Free Text) Plan: Ms Chavis, 77F, PMH of CAD, atrial fibrillation on anticoagulation, COPD, obesity with BMI 31 came in to [facility] complaining of nausea/diarrhea, SOB, easy fatigability fx 3 days. She was also having burning sensation on urination as well as loose bowel movement. She has fever on admission. She has Atrial fibrillation in rapid ventricular response. CT scan of the abdomen and pelvis was done which showed left sided perinephric stranding. She is in the ICU because of the atrial fibrillation. Severe sepsis with hypoxic respiratory failure due to left sided pyelonephritis , affecting the heart: atrial fibrillation with rapid ventricular response Rapid a fib on anticoagulation, likely from fever and dehydration. had ruled out secondary cause from hyperthyroid Diarrhea likely due to intraabdominal/retroperitoneal irritation from pyelonephritis dehydration mild prerenal azotemia uncontrolled diabtes mellitis Hx COPD Echo 2017 (EF 62, RVSP 43) Penicillin and clarithromycin allergy For sepsis, she was fluid resuscitated in ED and got cipro. Upgraded antibiotics to aztreonam for added pseudomonas coverage. Tylenol IV prn for fever. Continue D5/NS IVF. For diarrhea, continue to trend i/o. Trend kidney function. For rapid afib, s/p digoxin/metoprolol IV. now on cardizem gtt. start lopressor 25 bid AND propanolol 20 TID For DM, s/p insulin gtt. Now levemir 40. Humalog 12 AC, ISSS. follow A1C tomorrow. For hyperthryoid, f/u TSH normal s/r/d/w Dr Woodruff <Tod Woodruff S - Last Filed: 01/22/18 21:51> Results - Vital Signs Recent Vital Signs: Last Vital Signs Temp 100.0 F H 01/22/18 18:07 Pulse 90 01/22/18 18:07 Resp 41 H 01/22/18 18:01 BP 165/73 H 01/22/18 18:01 Pulse Ox 86 L 01/22/18 18:07 - Labs Result Diagrams: 01/22/18 06:10 01/22/18 06:10 Labs: Laboratory Results - last 24 hr 01/21/18 01/21/18 01/21/18 16:07 17:00 18:00 WBC RBC Hgb Hct MCV MCH MCHC RDW Plt Count MPV Gran % Lymph % (Auto) [place] % (Auto) Eos % (Auto) Baso % (Auto) Gran # Lymph # (Auto) [place] # (Auto) Eos # (Auto) Baso # (Auto) Sodium Potassium Chloride Carbon Dioxide Anion Gap BUN Creatinine Est GFR ( Amer) Est GFR (Non-Af Amer) POC Glucose (mg/dL) 241 H 216 H 195 H Random Glucose Calcium Total Bilirubin AST ALT Alkaline Phosphatase Total Protein Albumin Globulin Albumin/Globulin Ratio Procalcitonin 01/21/18 01/21/18 01/21/18 19:01 19:53 20:59 WBC RBC Hgb Hct MCV MCH MCHC RDW Plt Count MPV Gran % Lymph % (Auto) [place] % (Auto) Eos % (Auto) Baso % (Auto) Gran # Lymph # (Auto) [place] # (Auto) Eos # (Auto) Baso # (Auto) Sodium Potassium Chloride Carbon Dioxide Anion Gap BUN Creatinine Est GFR ( Amer) Est GFR (Non-Af Amer) POC Glucose (mg/dL) 138 H 117 H 124 H Random Glucose Calcium Total Bilirubin AST ALT Alkaline Phosphatase Total Protein Albumin Globulin Albumin/Globulin Ratio Procalcitonin 01/21/18 01/21/18 01/21/18 22:27 23:06 23:39 WBC RBC Hgb Hct MCV MCH MCHC RDW Plt Count MPV Gran % Lymph % (Auto) [place] % (Auto) Eos % (Auto) Baso % (Auto) Gran # Lymph # (Auto) [place] # (Auto) Eos # (Auto) Baso # (Auto) Sodium 137 Potassium 3.7 Chloride 107 Carbon Dioxide 19 L Anion Gap 14 BUN 16 Creatinine 0.7 Est GFR ( Amer) > 60 Est GFR (Non-Af Amer) > 60 POC Glucose (mg/dL) 147 H 119 H Random Glucose 127 H Calcium 7.8 L Total Bilirubin 0.5 AST 40 H D ALT 24 Alkaline Phosphatase 50 Total Protein 5.9 Albumin 3.0 Globulin 2.9 Albumin/Globulin Ratio 1.0 L Procalcitonin 01/22/18 01/22/18 01/22/18 00:28 00:59 01:54 WBC RBC Hgb Hct MCV MCH MCHC RDW Plt Count MPV Gran % Lymph % (Auto) [place] % (Auto) Eos % (Auto) Baso % (Auto) Gran # Lymph # (Auto) [place] # (Auto) Eos # (Auto) Baso # (Auto) Sodium Potassium Chloride Carbon Dioxide Anion Gap BUN Creatinine Est GFR ( Amer) Est GFR (Non-Af Amer) POC Glucose (mg/dL) 131 H 132 H 127 H Random Glucose Calcium Total Bilirubin AST ALT Alkaline Phosphatase Total Protein Albumin Globulin Albumin/Globulin Ratio Procalcitonin 01/22/18 01/22/18 01/22/18 03:03 06:10 06:10 WBC 10.4 D RBC 4.22 Hgb 13.2 Hct 39.3 MCV 93.1 MCH 31.3 MCHC 33.6 RDW 12.5 Plt Count 223 MPV 11.6 H Gran % 77.9 H Lymph % (Auto) 8.5 L [place] % (Auto) 13.0 H Eos % (Auto) 0.4 L Baso % (Auto) 0.2 Gran # 8.12 H Lymph # (Auto) 0.9 L [place] # (Auto) 1.4 H Eos # (Auto) 0.0 Baso # (Auto) 0.02 Sodium 138 Potassium 3.8 Chloride 106 Carbon Dioxide 21 Anion Gap 15 BUN 13 Creatinine 0.6 L Est GFR ( Amer) > 60 Est GFR (Non-Af Amer) > 60 POC Glucose (mg/dL) 130 H Random Glucose 109 Calcium 7.7 L Total Bilirubin 0.4 AST 51 H D ALT 37 Alkaline Phosphatase 53 Total Protein 5.8 Albumin 2.9 L Globulin 2.9 Albumin/Globulin Ratio 1.0 L Procalcitonin 01/22/18 11:00 WBC RBC Hgb Hct MCV MCH MCHC RDW Plt Count MPV Gran % Lymph % (Auto) [place] % (Auto) Eos % (Auto) Baso % (Auto) Gran # Lymph # (Auto) [place] # (Auto) Eos # (Auto) Baso # (Auto) Sodium Potassium Chloride Carbon Dioxide Anion Gap BUN Creatinine Est GFR ( Amer) Est GFR (Non-Af Amer) POC Glucose (mg/dL) Random Glucose Calcium Total Bilirubin AST ALT Alkaline Phosphatase Total Protein Albumin Globulin Albumin/Globulin Ratio Procalcitonin 0.47 Assessment & Plan - Assessment and Plan (Free Text) Plan: Pt seen and examined. I have reviewed the note of the medical office technologist and agree with it. I have discussed the assessment and plan with the resident. I have reviewed the patient's labs and medications.
--- NOTE | 2018-01-22 18:15 | PN ---
Copied To: Gail Modi MD Attending MD: Gail Modi MD DATE: 01/22/2018 REASON FOR CONSULTATION AND FOLLOWUP: Rapid AFib with rapid ventricular rate. The patient denies any chest pain, shortness of breath, or any palpitation. OBJECTIVE: GENERAL: Not in apparent distress. VITAL SIGNS: Temperature 102.6, heart rate 149, blood pressure 105/53. HEENT: PERRLA, intact. NECK: Supple. No carotid bruits or thyromegaly. CHEST: Clear to auscultation. HEART: S1 and S2, regular. ABDOMEN: Soft. EXTREMITIES: Clubbing and cyanosis negative. LABORATORY DATA: Blood workup as follows; WBC 10.3, hemoglobin 13.2, hematocrit 39.3, and platelet count 223. Chemistry shows sodium 139, potassium 3.8, chloride 106, carbon dioxide 21, anion gap of 15. BUN 13, creatinine 0.6. IMPRESSION: A 77-year-old female with a past medical history significant for coronary artery disease nonobstructive, history of atrial fibrillation admitted with urinary tract infection, diarrhea, prerenal azotemia, atrial fibrillation with rapid ventricular rate. The patient is being followed by history of percutaneous transluminal coronary angioplasty 10 years ago, history of stent recently in 2009, and repeat catheterization in [facility] and treated medically. The patient had a history of hyperthyroidism, history of recent cardiac workup. Recent echocardiogram on 05/18/2017, that shows left ventricular function that is normal, moderate pulmonary hypertension, right ventricular systolic pressure of 50, ejection fraction of 60%. The patient had stent on 06/27/2012, by Dr. Pearl. The patient had repeat catheterization done on 06/27/2012, by Dr. Pearl that showed patent stent in left anterior descending and circumflex. Diagonal branch disease, medical treatment recommended. At this time, the patient came with fever, sepsis, possibly urinary tract infection. RECOMMENDATION: Continue broad-spectrum antibiotic. We will add low-dose beta-titi and change Cardizem to verapamil. Continue Eliquis. Continue metoprolol. We will follow with you. Continue Tapazole for hyperthyroidism. We will give propranolol as well. Because of hyperthyroidism, we will add on propranolol. Gail Modi MD [facility] # [id number]
[2018-01-22] MEDS: Insulin Detemir 100 units/ml Vial (Levemir) SC SCH (22:00)
[2018-01-23] MEDS: Vancomycin 1gm in NS 250ml 1 GM/250 ML BAG IVPB SCH ×2 (05:43→17:46)
[2018-01-23] MEDS: Aztreonam 1 Gm in NS 100mL 100 ML IVPB SCH ×3 (05:55→21:40)
[2018-01-23 06:23] LABS: BASO # 0.03 K/mm3 (0.0-2.0); BASO % 0.4 % (0.0-3.0); EOS # 0.1 (0.0-0.7); EOS % 1.1 % (1.5-5.0); GRAN # 6.21 (1.4-6.5); GRAN % 75.6 % (50.0-68.0); HEMOGLOBIN 13.4 g/dL (12.0-16.0); LYMPH # 1.1 (1.2-3.4); MEAN CELL VOLUME 91.6 fl (80.0-105.0); MEAN CORPUSCULAR HEMOGLOBIN 31.2 pg (25.0-35.0); MEAN PLATELET VOLUME 11.6 fl (7.0-11.0); MONO # 0.8 (0.1-0.6); MONO % 9.9 % (1.0-6.0); RBC 4.3 10^6/uL (3.5-6.1); RED CELL DISTRIBUTION WIDTH 12.6 % (11.5-14.5); WHITE BLOOD COUNT 8.2 10^3/ul (4.5-11.0)
[2018-01-23 07:33] LABS: GFR AFRICAN-AMERICAN > 60; GFR NON-AFRICAN AMERICAN > 60
[2018-01-23] MEDS: Insulin Lispro (humaLOG) LOW Coverage SC SCH ×4 (08:09→23:23)
[2018-01-23] MEDS: Insulin Lispro 1 UNITS/0.01 ML SC SCH ×3 (08:11→17:46)
[2018-01-23 08:26] LABS: ALBUMIN 3.2 g/dL (3.0-4.8); ALT/SGPT 71 U/L (7-56); AST/SGOT 80 U/L (14-36); BLOOD UREA NITROGEN 8 mg/dL (7-21); CALCIUM 8.1 mg/dL (8.4-10.5); HDL CHOLESTEROL 16 mg/dL (29-60); LDL CHOLESTEROL 66 mg/dL (0-129)
--- NOTE | 2018-01-23 08:30 | CP.PCM.PN ---
<Surekha Thomson - Last Filed: 01/23/18 09:31> Subjective - Date & Time of Evaluation Date of Evaluation: 01/23/18 Time of Evaluation: 07:00 - Subjective Subjective: PGY-[address] Woodruff Tmax 102 at night. HR not controlled in 140s-150s, s/p cadizem push x 2, then varapemil IVP x 1. Denies CP, SOB, N/V/D/C Objective - Vital Signs/Intake and Output Vital Signs (last 24 hours): Temp Pulse Resp BP Pulse Ox 99.0 F 147 H 21 113/67 97 01/23/18 04:20 01/23/18 07:49 01/23/18 04:20 01/23/18 06:00 01/23/18 04:20 Intake and Output: 01/23/18 01/23/18 06:59 18:59 Intake Total 970 Output Total 1000 Balance -30 - Medications Medications: Current Medications Apixaban (Eliquis) 5 mg PO BID [facility] PRN Reason: Protocol Last Admin: 01/22/18 17:43 Dose: 5 mg diltiaZEM IVPB 100mg in NS (Cardizem 100mg In Ns) 100 mls @ 10 mls/hr IV .Q10H PRN; Protocol; 10 MG/HR PRN Reason: TITRATE PER MD ORDER Last Titration: 01/23/18 03:00 Dose: 10 mg/hr, 10 mls/hr Vancomycin HCl (Vancomycin 1gm) 1 gm in 250 mls @ 167 mls/hr IVPB Q12H [facility] PRN Reason: Protocol Last Admin: 01/23/18 05:43 Dose: 167 mls/hr Acetaminophen (Ofirmev) 1,000 mg in 100 mls @ 400 mls/hr IVPB Q6H PRN PRN Reason: Temperature > 100.4 Stop: 01/23/18 23:36 Last Admin: 01/22/18 22:27 Dose: 400 mls/hr Dextrose/Sodium Chloride (Dextrose 5%/0.9% Ns 1000 Ml) 1,000 mls @ 100 mls/hr IV .Q10H [facility] Last Admin: 01/22/18 23:45 Dose: 100 mls/hr Aztreonam (Azactam 1 Gm) 100 mls @ 100 mls/hr IVPB Q8 [facility] PRN Reason: Protocol Stop: 01/29/18 11:16 Last Admin: 01/23/18 05:55 Dose: 100 mls/hr Insulin Detemir (Levemir) 40 unit SC HS [facility] Last Admin: 01/22/18 22:00 Dose: 40 u Insulin Human Lispro (Humalog) 12 units SC AC [facility] Last Admin: 01/23/18 08:11 Dose: 12 units Insulin Human Lispro (Humalog Low) 0 units SC ACHS [facility] PRN Reason: Protocol Last Admin: 01/23/18 08:09 Dose: Not Given Methimazole (Tapazole) 5 mg PO DAILY [facility] Last Admin: 01/22/18 09:04 Dose: 5 mg Propranolol HCl (Inderal) 20 mg PO TID [facility] Last Admin: 01/22/18 17:43 Dose: 20 mg Verapamil HCl (Calan Tab) 40 mg PO TID [facility] Last Admin: 01/22/18 17:42 Dose: 40 mg Verapamil HCl (Verapamil Inj) 2.5 mg IVP Q6H PRN PRN Reason: for heart rate >130 Last Admin: 01/22/18 13:31 Dose: 2.5 mg - Labs Labs: 01/23/18 06:00 01/23/18 06:00 PT 18.5 SECONDS (9.4-12.5) H 01/21/18 08:45 INR 1.59 01/21/18 08:45 APTT 28.5 Seconds (25.1-36.5) 01/21/18 08:45 - Constitutional Appears: No Acute Distress - Head Exam Head Exam: ATRAUMATIC, NORMAL INSPECTION, NORMOCEPHALIC - Eye Exam Eye Exam: EOMI, Normal appearance, PERRL. absent: Scleral icterus Pupil Exam: NORMAL ACCOMODATION - ENT Exam ENT Exam: Mucous Membranes Moist - Neck Exam Additional comments: supple - Respiratory Exam Respiratory Exam: Clear to Ausculation Bilateral. absent: Rales, Rhonchi, Wheezes - Cardiovascular Exam Cardiovascular Exam: Tachycardia, Irregular Rhythm, +S1, +S2 - GI/Abdominal Exam GI & Abdominal Exam: Soft, Normal Bowel Sounds. absent: Tenderness, Organomegaly - Exam Additional comments: No suprapubic tenderness - Extremities Exam Extremities Exam: Normal Capillary Refill, Pedal Edema (slight b/l). absent: Calf Tenderness - Back Exam Back Exam: absent: CVA tenderness (L), CVA tenderness (R) - Neurological Exam Neurological Exam: Alert, Awake, Oriented x3 - Psychiatric Exam Psychiatric exam: Normal Affect, Normal Mood - Skin Skin Exam: Dry, Warm Assessment and Plan - Assessment and Plan (Free Text) Plan: Ms Chavis, 77F, PMH of CAD, atrial fibrillation on anticoagulation, COPD, obesity with BMI 31 came in to [facility] [place] complaining of nausea/diarrhea, SOB, easy fatigability fx 3 days. She was also having burning sensation on urination as well as loose bowel movement. She has fever on admission. She has Atrial fibrillation in rapid ventricular response. CT scan of the abdomen and pelvis was done which showed left sided perinephric stranding. She is in the ICU because of the atrial fibrillation. Severe sepsis, with atrial fibrillation with rapid ventricular response, due to left sided pyelonephritis. Leukocyosis resolved Rapid a fib on anticoagulation, likely from fever. had ruled out secondary cause from hyperthyroid uncontrolled diabtes mellitis Diarrhea likely due to intraabdominal/retroperitoneal irritation from pyelonephritis - resolved dehydration - resolved mild prerenal azotemia - resolved Hx COPD Echo 2018 (EF 62, RVSP 43) Penicillin and clarithromycin allergy DNR/DNI For sepsis, she was fluid resuscitated in ED and got cipro. Upgraded antibiotics to aztreonam for added pseudomonas coverage and vancomycin for MRSA , day ___2___. Tylenol IV prn for fever. Continue D5/NS IVF. Diarrhea resolved. leukocytosis resolved. U Cx showed gram neg radha. Pt should remain in ICU for uncontrolled a fib For rapid afib, not controlled by digoxin/metoprolol/cardizem IV push. Change PO cardizem to verapamil PO. Change IVP to verapamil. On heart specific and non- specific BB - lopressor AND propanolol (in the setting of hyperthyroid) For DM, s/p insulin gtt. Now levemir 40. Humalog 12 AC, ISSS. follow A1C tomorrow. For hyperthryoid, f/u TSH normal s/r/d/w Dr Woodruff <Tod Woodruff S - Last Filed: 01/23/18 22:28> Objective - Vital Signs/Intake and Output Vital Signs (last 24 hours): Temp Pulse Resp BP Pulse Ox 100.0 F H 80 26 H 142/72 95 01/23/18 21:30 01/23/18 21:30 01/23/18 21:30 01/23/18 21:00 01/23/18 21:30 Intake and Output: 01/23/18 01/24/18 18:59 06:59 Intake Total 1790 Output Total 1000 Balance 790 - Medications Medications: Current Medications Acetaminophen (Tylenol 325mg Tab) 650 mg PO Q4 PRN PRN Reason: Fever >100.4 F Albuterol/Ipratropium (Duoneb 3 Mg/0.5 Mg (3 Ml) Ud) 3 ml IH [id number] [facility] Last Admin: 01/23/18 20:22 Dose: 3 ml Albuterol/Ipratropium (Duoneb 3 Mg/0.5 Mg (3 Ml) Ud) 3 ml IH Q2H PRN PRN Reason: Shortness of Breath Apixaban (Eliquis) 5 mg PO BID [facility] PRN Reason: Protocol Last Admin: 01/23/18 17:46 Dose: 5 mg Budesonide (Pulmicort Respules) 0.5 mg IH [id number] [facility] diltiaZEM IVPB 100mg in NS (Cardizem 100mg In Ns) 100 mls @ 10 mls/hr IV .Q10H PRN; Protocol; 10 MG/HR PRN Reason: TITRATE PER MD ORDER Last Titration: 01/23/18 15:55 Dose: 0 mg/hr, 0 mls/hr Vancomycin HCl (Vancomycin 1gm) 1 gm in 250 mls @ 167 mls/hr IVPB Q12H [facility] PRN Reason: Protocol Last Admin: 01/23/18 17:46 Dose: 167 mls/hr Acetaminophen (Ofirmev) 1,000 mg in 100 mls @ 400 mls/hr IVPB Q6H PRN PRN Reason: Temperature > 100.4 Stop: 01/23/18 23:36 Last Admin: 01/23/18 10:23 Dose: 400 mls/hr Dextrose/Sodium Chloride (Dextrose 5%/0.9% Ns 1000 Ml) 1,000 mls @ 100 mls/hr IV .Q10H [facility] Last Admin: 01/23/18 17:38 Dose: 100 mls/hr Aztreonam (Azactam 1 Gm) 100 mls @ 100 mls/hr IVPB Q8 [facility] PRN Reason: Protocol Stop: 01/29/18 11:16 Last Admin: 01/23/18 21:40 Dose: 100 mls/hr Insulin Detemir (Levemir) 40 unit SC HS [facility] Last Admin: 01/22/18 22:00 Dose: 40 u Insulin Human Lispro (Humalog) 12 units SC AC [facility] Last Admin: 01/23/18 17:46 Dose: 12 units Insulin Human Lispro (Humalog Low) 0 units SC ACHS [facility] PRN Reason: Protocol Last Admin: 01/23/18 18:14 Dose: Not Given Methimazole (Tapazole) 5 mg PO DAILY [facility] Last Admin: 01/23/18 10:22 Dose: 5 mg Propranolol HCl (Inderal) 20 mg PO TID [facility] Last Admin: 01/23/18 17:46 Dose: 20 mg Verapamil HCl (Calan Tab) 40 mg PO TID [facility] Last Admin: 01/23/18 17:45 Dose: 40 mg Verapamil HCl (Verapamil Inj) 2.5 mg IVP Q6H PRN PRN Reason: for heart rate >130 Last Admin: 01/22/18 13:31 Dose: 2.5 mg - Labs Labs: 01/23/18 06:00 01/23/18 06:00 PT 18.5 SECONDS (9.4-12.5) H 01/21/18 08:45 INR 1.59 01/21/18 08:45 APTT 28.5 Seconds (25.1-36.5) 01/21/18 08:45 Assessment and Plan - Assessment and Plan (Free Text) Plan: Pt seen and examined. I have reviewed the note of the medical equipment repair technician and agree with it. I have discussed the assessment and plan with the resident. I have reviewed the patient's labs and medications. Pt with sepsis due to pyelonephritis. On IV Abx. A fib uncontrolled. On Tylenol for fever. On Levemir for DM-2.
[2018-01-23] MEDS ORDERED: Potassium Chloride 20 mEq ER Tab PO STA (09:09)
[2018-01-23] MEDS: Potassium & Sodium Phosphate PO SCH ×2 (09:34→17:45)
[2018-01-23] MEDS: methIMAzole 5 MG TAB PO SCH (10:22)
[2018-01-23] MEDS: Dextrose 5%/0.9% NS 1,000 ML IV SCH ×2 (10:23→17:38)
[2018-01-23] MEDS ORDERED: Digoxin 500 mcg/2ml (0.5 mg/2ml) Inj IVP ONE ×2 (11:50→16:00)
--- NOTE | 2018-01-23 13:13 | CP.CCUPN ---
<Dae Subramanian - Last Filed: 01/23/18 13:10> CCU Subjective - Physician Review Events Since Last Encounter (Free Text): Hoavandana Moris, PGY-1 ICU Progress Note Patient seen and examined at bedside this morning. Tmax of 100.6 overnight and tylenol given. 20mg IVP cardizem and 5mg IVP verapimil given for elevated HR overnight. Currently on diltiazem drip and HR in the 80-90s. Patient slept well and has good appetite. Denies CP, SOB, abdominal pain, and back pain. 12 point ROS noted here, otherwise negative. CCU Objective - Vital Signs / Intake & Output Vital Signs (Last 4 hours): Vital Signs Pulse BP 01/23/18 10:22 162 H 130/88 Intake and Output (Last 8hrs): Intake & Output 01/22/18 01/23/18 01/23/18 22:59 06:59 14:59 Intake Total 1280 970 10 Output Total 800 1000 Balance 480 -30 10 Weight 187 lb 3 oz Intake: IV 900 850 10 Cardizem 40 IVF 900 800 Oral 380 120 Output: Urine 800 1000 Urethral (Gill) 800 1000 - Physical Exam Head: Positive for: Atraumatic, Normocephalic Extroacular Muscles: Positive for: EOMI Conjunctiva: Positive for: Normal Mouth: Positive for: Dry Pharnyx: Positive for: Normal Nose (External): Positive for: Atraumatic Neck: Positive for: Normal Range of Motion. Negative for: MIDLINE TENDERNESS, JVD, Lymphadenopathy Respiratory/Chest: Positive for: Clear to Auscultation, Good Air Exchange. Negative for: Respiratory Distress, Accessory Muscle Use, Rales, Rhonchi Cardiovascular: Positive for: Irregular Rhythm, Peripheal Pulses Present. Negative for: Murmurs, Tachycardic (current rate of 80-90s on monitor) Abdomen: Negative for: Tenderness, Distention, Peritoneal Signs, Rebound, Guarding Back: Positive for: Normal Inspection Upper Extremity: Positive for: Normal Inspection, NORMAL PULSES. Negative for: Cyanosis, Edema Lower Extremity: Positive for: Normal Inspection, NORMAL PULSES. Negative for: Edema, CALF TENDERNESS Neurological: Positive for: GCS=15, Speech Normal, Motor Func Grossly Intact Skin: Positive for: Warm, Dry, Normal Color. Negative for: Rashes Lymphatic: Negative for: Cervical Adenopathy Psychiatric: Positive for: Alert, Oriented x 3, Normal Insight, Normal Concentration - Medications Active Medications: Active Medications Generic Name Dose Route Start Last Admin Trade Name Freq PRN Reason Stop Dose Admin Albuterol/Ipratropium 3 ml 01/23/18 14:00 Duoneb 3 Mg/0.5 Mg (3 Ml) Ud IH [id number] MIRNA Apixaban 5 mg 01/21/18 18:30 01/23/18 10:23 Eliquis PO 5 mg BID MIRNA Administration Protocol Budesonide 0.5 mg 01/23/18 20:00 Pulmicort Respules IH [id number] MIRNA Digoxin 0.25 mg 01/23/18 16:00 Lanoxin IVP 01/23/18 16:01 ONCE ONE diltiaZEM IVPB 100mg in NS 100 mls @ 10 mls/hr 01/21/18 15:02 01/23/18 11:59 Cardizem 100mg In Ns IV 5 mg/hr .Q10H PRN 5 mls/hr TITRATE PER MD ORDER Titration Protocol 10 MG/HR Vancomycin HCl 1 gm in 250 mls @ 167 mls/hr 01/21/18 16:45 01/23/18 05:43 Vancomycin 1gm IVPB 167 mls/hr Q12H MIRNA Administration Protocol Acetaminophen 1,000 mg in 100 mls @ 400 mls/hr 01/21/18 23:35 01/23/18 10:23 Ofirmev IVPB 01/23/18 23:36 400 mls/hr Q6H PRN Administration Temperature > 100.4 Dextrose/Sodium Chloride 1,000 mls @ 100 mls/hr 01/22/18 00:45 01/23/18 10:23 Dextrose 5%/0.9% Ns 1000 Ml IV 100 mls/hr .Q10H MIRNA Administration Aztreonam 100 mls @ 100 mls/hr 01/22/18 11:15 01/23/18 05:55 Azactam 1 Gm IVPB 01/29/18 11:16 100 mls/hr Q8 MIRNA Administration Protocol Insulin Detemir 40 unit 01/22/18 22:00 01/22/18 22:00 Levemir SC 40 u HS MIRNA Administration Insulin Human Lispro 12 units 01/22/18 07:30 01/23/18 12:38 Humalog SC 12 units AC MIRNA Administration Insulin Human Lispro 0 units 01/22/18 07:30 01/23/18 12:39 Humalog Low SC 1 units ACHS MIRNA Administration Protocol Methimazole 5 mg 01/21/18 16:45 01/23/18 10:22 Tapazole PO 5 mg DAILY MIRNA Administration Potassium Phos/Sodium Phos 1 pkt 01/23/18 10:00 01/23/18 09:34 Neutra-Phos PO 01/23/18 18:01 1 pkt BID MIRNA Administration Propranolol HCl 20 mg 01/22/18 14:00 01/23/18 10:22 Inderal PO 20 mg TID MIRNA Administration Verapamil HCl 40 mg 01/22/18 14:00 01/23/18 10:22 Calan Tab PO 40 mg TID MIRNA Administration Verapamil HCl 2.5 mg 01/22/18 13:05 01/22/18 13:31 Verapamil Inj IVP 2.5 mg Q6H PRN Administration for heart rate >130 - Patient Studies Lab Studies: Microbiology Studies 01/21/18 14:41 MRSA Culture (Admit) - Final Naris MRSA NOT DETECTED Lab Studies 01/23/18 01/23/18 01/23/18 Range/Units 07:23 06:00 06:00 WBC (4.5-11.0) 10^3/ul RBC (3.5-6.1) 10^6/uL Hgb (12.0-16.0) g/dL Hct (36.0-48.0) % MCV (80.0-105.0) fl MCH (25.0-35.0) pg MCHC (31.0-37.0) g/dl RDW (11.5-14.5) % Plt Count (120.0-450.0) 10^3/uL MPV (7.0-11.0) fl Gran % (50.0-68.0) % Lymph % (Auto) (22.0-35.0) % Bleck[place] % (Auto) (1.0-6.0) % Eos % (Auto) (1.5-5.0) % Baso % (Auto) (0.0-3.0) % Gran # (1.4-6.5) Lymph # (Auto) (1.2-3.4) Bleck[place] # (Auto) (0.1-0.6) Eos # (Auto) (0.0-0.7) Baso # (Auto) (0.0-2.0) K/mm3 Sodium 139 (132-148) mmol/L Potassium 3.4 L (3.6-5.0) mmol/L Chloride 108 H (98-107) mmol/L Carbon Dioxide 20 L (21-33) mmol/L Anion Gap 15 (10-20) BUN 8 (7-21) mg/dL Creatinine 0.6 L (0.7-1.2) mg/dl Est GFR ( Amer) > 60 Est GFR (Non-Af Amer) > 60 POC Glucose (mg/dL) 128 H (65-110) mg/dL Random Glucose 105 (70-110) mg/dL Hemoglobin A1c 9.2 H (4.2-6.5) % Calcium 8.1 L (8.4-10.5) mg/dL Phosphorus 1.8 L (2.5-4.5) mg/dL Magnesium 1.9 (1.7-2.2) mg/dL Total Bilirubin 0.4 (0.2-1.3) mg/dL AST 80 H D (14-36) U/L ALT 71 H (7-56) U/L Alkaline Phosphatase 68 (38-126) U/L Total Protein 6.4 (5.8-8.3) g/dL Albumin 3.2 (3.0-4.8) g/dL Globulin 3.2 gm/dL Albumin/Globulin Ratio 1.0 L (1.1-1.8) Triglycerides 196 H (35-160) mg/dL Cholesterol 123 L (130-200) mg/dL LDL Cholesterol Direct 66 (0-129) mg/dL HDL Cholesterol 16 L (29-60) mg/dL Procalcitonin (0.19-0.49) NG/ML 01/23/18 01/22/18 01/22/18 Range/Units 06:00 21:40 16:03 WBC 8.2 D (4.5-11.0) 10^3/ul RBC 4.30 (3.5-6.1) 10^6/uL Hgb 13.4 (12.0-16.0) g/dL Hct 39.4 (36.0-48.0) % MCV 91.6 (80.0-105.0) fl MCH 31.2 (25.0-35.0) pg MCHC 34.0 (31.0-37.0) g/dl RDW 12.6 (11.5-14.5) % Plt Count 244 (120.0-450.0) 10^3/uL MPV 11.6 H (7.0-11.0) fl Gran % 75.6 H (50.0-68.0) % Lymph % (Auto) 13.0 L (22.0-35.0) % Bleckley % (Auto) 9.9 H (1.0-6.0) % Eos % (Auto) 1.1 L (1.5-5.0) % Baso % (Auto) 0.4 (0.0-3.0) % Gran # 6.21 (1.4-6.5) Lymph # (Auto) 1.1 L (1.2-3.4) Bleck[place] # (Auto) 0.8 H (0.1-0.6) Eos # (Auto) 0.1 (0.0-0.7) Baso # (Auto) 0.03 (0.0-2.0) K/mm3 Sodium (132-148) mmol/L Potassium (3.6-5.0) mmol/L Chloride (98-107) mmol/L Carbon Dioxide (21-33) mmol/L Anion Gap (10-20) BUN (7-21) mg/dL Creatinine (0.7-1.2) mg/dl Est GFR ( Amer) Est GFR (Non-Af Amer) POC Glucose (mg/dL) 94 112 H (65-110) mg/dL Random Glucose (70-110) mg/dL Hemoglobin A1c (4.2-6.5) % Calcium (8.4-10.5) mg/dL Phosphorus (2.5-4.5) mg/dL Magnesium (1.7-2.2) mg/dL Total Bilirubin (0.2-1.3) mg/dL AST (14-36) U/L ALT (7-56) U/L Alkaline Phosphatase (38-126) U/L Total Protein (5.8-8.3) g/dL Albumin (3.0-4.8) g/dL Globulin gm/dL Albumin/Globulin Ratio (1.1-1.8) Triglycerides (35-160) mg/dL Cholesterol (130-200) mg/dL LDL Cholesterol Direct (0-129) mg/dL HDL Cholesterol (29-60) mg/dL Procalcitonin (0.19-0.49) NG/ML 01/22/18 01/22/18 01/22/18 Range/Units 11:03 11:00 07:22 WBC (4.5-11.0) 10^3/ul RBC (3.5-6.1) 10^6/uL Hgb (12.0-16.0) g/dL Hct (36.0-48.0) % MCV (80.0-105.0) fl MCH (25.0-35.0) pg MCHC (31.0-37.0) g/dl RDW (11.5-14.5) % Plt Count (120.0-450.0) 10^3/uL MPV (7.0-11.0) fl Gran % (50.0-68.0) % Lymph % (Auto) (22.0-35.0) % Bleck[place] % (Auto) (1.0-6.0) % Eos % (Auto) (1.5-5.0) % Baso % (Auto) (0.0-3.0) % Gran # (1.4-6.5) Lymph # (Auto) (1.2-3.4) Bleckley # (Auto) (0.1-0.6) Eos # (Auto) (0.0-0.7) Baso # (Auto) (0.0-2.0) K/mm3 Sodium (132-148) mmol/L Potassium (3.6-5.0) mmol/L Chloride (98-107) mmol/L Carbon Dioxide (21-33) mmol/L Anion Gap (10-20) BUN (7-21) mg/dL Creatinine (0.7-1.2) mg/dl Est GFR ( Amer) Est GFR (Non-Af Amer) POC Glucose (mg/dL) 181 H 109 (65-110) mg/dL Random Glucose (70-110) mg/dL Hemoglobin A1c (4.2-6.5) % Calcium (8.4-10.5) mg/dL Phosphorus (2.5-4.5) mg/dL Magnesium (1.7-2.2) mg/dL Total Bilirubin (0.2-1.3) mg/dL AST (14-36) U/L ALT (7-56) U/L Alkaline Phosphatase (38-126) U/L Total Protein (5.8-8.3) g/dL Albumin (3.0-4.8) g/dL Globulin gm/dL Albumin/Globulin Ratio (1.1-1.8) Triglycerides (35-160) mg/dL Cholesterol (130-200) mg/dL LDL Cholesterol Direct (0-129) mg/dL HDL Cholesterol (29-60) mg/dL Procalcitonin 0.47 (0.19-0.49) NG/ML Laboratory Results - last 24 hr 01/22/18 01/22/18 01/22/18 07:22 11:00 11:03 WBC RBC Hgb Hct MCV MCH MCHC RDW Plt Count MPV Gran % Lymph % (Auto) Bleck[place] % (Auto) Eos % (Auto) Baso % (Auto) Gran # Lymph # (Auto) Bleck[place] # (Auto) Eos # (Auto) Baso # (Auto) Sodium Potassium Chloride Carbon Dioxide Anion Gap BUN Creatinine Est GFR ( Amer) Est GFR (Non-Af Amer) POC Glucose (mg/dL) 109 181 H Random Glucose Hemoglobin A1c Calcium Phosphorus Magnesium Total Bilirubin AST ALT Alkaline Phosphatase Total Protein Albumin Globulin Albumin/Globulin Ratio Triglycerides Cholesterol LDL Cholesterol Direct HDL Cholesterol Procalcitonin 0.47 01/22/18 01/22/18 01/23/18 16:03 21:40 06:00 WBC 8.2 D RBC 4.30 Hgb 13.4 Hct 39.4 MCV 91.6 MCH 31.2 MCHC 34.0 RDW 12.6 Plt Count 244 MPV 11.6 H Gran % 75.6 H Lymph % (Auto) 13.0 L Bleckley % (Auto) 9.9 H Eos % (Auto) 1.1 L Baso % (Auto) 0.4 Gran # 6.21 Lymph # (Auto) 1.1 L Bleck[place] # (Auto) 0.8 H Eos # (Auto) 0.1 Baso # (Auto) 0.03 Sodium Potassium Chloride Carbon Dioxide Anion Gap BUN Creatinine Est GFR ( Amer) Est GFR (Non-Af Amer) POC Glucose (mg/dL) 112 H 94 Random Glucose Hemoglobin A1c Calcium Phosphorus Magnesium Total Bilirubin AST ALT Alkaline Phosphatase Total Protein Albumin Globulin Albumin/Globulin Ratio Triglycerides Cholesterol LDL Cholesterol Direct HDL Cholesterol Procalcitonin 01/23/18 01/23/18 01/23/18 06:00 06:00 07:23 WBC RBC Hgb Hct MCV MCH MCHC RDW Plt Count MPV Gran % Lymph % (Auto) Bleckley % (Auto) Eos % (Auto) Baso % (Auto) Gran # Lymph # (Auto) Bleckley # (Auto) Eos # (Auto) Baso # (Auto) Sodium 139 Potassium 3.4 L Chloride 108 H Carbon Dioxide 20 L Anion Gap 15 BUN 8 Creatinine 0.6 L Est GFR ( Amer) > 60 Est GFR (Non-Af Amer) > 60 POC Glucose (mg/dL) 128 H Random Glucose 105 Hemoglobin A1c 9.2 H Calcium 8.1 L Phosphorus 1.8 L Magnesium 1.9 Total Bilirubin 0.4 AST 80 H D ALT 71 H Alkaline Phosphatase 68 Total Protein 6.4 Albumin 3.2 Globulin 3.2 Albumin/Globulin Ratio 1.0 L Triglycerides 196 H Cholesterol 123 L LDL Cholesterol Direct 66 HDL Cholesterol 16 L Procalcitonin Fingerstick Blood Sugar Results: 190 Critical Care Progress Note - Nutrition Nutrition: Nutrition Category Date Time Status Consistent Carbohydrate [DIET] Diets 01/22/18 Breakfast Ordered Assessment/Plan - Assessment and Plan (Free Text) Assessment: Assessment: This is a 77 year old female with PMH significant for Afib on Eliquis, CAD, and COPD managed in the ICU for afib with RVR secondary due to possible dehydration , hyperthroidism and sepsis from pyelonephritis. Plan: Neuro: -maintain normothermia. -AAO x3, moving extremities spontaneously past midline Cardio: -maintain MAP>65 -will monitor vitals including HR and BP closely. Current HR at 80-90, BP at 100s/60s. -taper down cardizem drip as tolerated -on propanolol 20mg TID, metoprolol tartrate 25mg BID, verapimil 40mg TID as well as IV verapimil prn -cardiology on consult, Dr Modi Lungs: -SaO2 >90% -supplementary O2 PRN -CXR 01/21 shows no active disease Renal: -maintain euvolemia -avoid nephrotoxic agents, hypochloremia -replace electrolytes as needed -BUN/Cr today is 8/0.6 WNL. -CT abd/pelvis 01/21 showed L sided pernephritic stranding. No hydronephrosis, or evidence of obstructing stone. Possible secondary to recently passed stone or pyelonephritis. clinical correlation suggested -U/A on 01/21 showed ketones and small leukocyte esterase Heme: -Hg today is 13.4 WNL -on eliquis 5mg BID Endo: -maintain euglycemia -insulin SC, normal anion gap. -methimazole 5mg PO daily, history of hyperthyroidism, most recent TSH is WNL. ID: -WBC is 8.2 today, down from 10.4 yesterday and previous 20.7. Temp of 100 overnight, currently afebrile -Aztreonam and vanc day 3 for likely pyelonephritis -stool studies, c diff pending -urine culture shows klebsiella, MRSA screen is negative, blood culture negative after 48 hours -ID on consult, Dr. Lyons -GI: -consistent carb diet <Moses Willett - Last Filed: 01/23/18 18:38> CCU Objective - Vital Signs / Intake & Output Vital Signs (Last 4 hours): Vital Signs Temp Pulse Resp BP Pulse Ox 01/23/18 18:20 100.4 F H 95 H 38 H 98 01/23/18 18:10 100.4 F H 97 H 43 H 99 01/23/18 18:00 100.4 F H 94 H 41 H 154/89 H 81 L 01/23/18 17:50 100.4 F H 95 H 91 L 01/23/18 17:46 96 H 01/23/18 17:45 96 H 01/23/18 17:44 100.4 F H 97 H 89 L 01/23/18 17:40 100.4 F H 103 H 40 H 79 L 01/23/18 17:39 100.2 F H 92 H 83 L 01/23/18 17:30 100.2 F H 105 H 39 H 94 L 08/07/18 17:26 100.2 F H 96 H 98 0818 17:22 100.2 F H 96 H 95 18 17:20 100.2 F H 90 25 H 86 L 01/23/18 17:14 100.2 F H 87 91 L 18 17:10 100.2 F H 74 36 H 96 18 17:05 100.2 F H 76 94 L 01/23/18 17:00 100.2 F H 88 44 H 128/72 95 18 16:59 100.2 F H 74 94 L 18 16:58 100.2 F H 83 97 18 16:52 100.0 F H 88 45 H 18 16:51 100.0 F H 85 32 H 18 16:50 100.0 F H 80 18 16:49 100.0 F H 73 19 01/23/18 16:48 100.0 F H 88 41 H 01/23/18 16:47 100.0 F H 95 H 38 H 18 16:46 100.0 F H 83 40 H 18 16:45 100.0 F H 83 29 H 18 16:44 100.0 F H 86 37 H 01/23/18 16:43 100.0 F H 84 28 H 18 16:40 100.0 F H 68 32 H 83 L 18 16:30 99.9 F H 79 45 H 66 L 18 16:20 99.9 F H 75 35 H 94 L 18 16:10 99.9 F H 79 39 H 83 L 18 16:00 99.9 F H 72 45 H 119/56 L 94 L 01/23/18 15:59 99.9 F H 70 40 H 08/18 15:50 99.9 F H 77 31 H 74 L //18 15:40 99.7 F H 69 46 H 93 L 01/23/18 15:30 99.7 F H 77 40 H 94 L 01/23/18 15:22 99.7 F H 78 94 L 01/23/18 15:20 99.7 F H 73 44 H 98 08//18 15:10 99.7 F H 74 43 H 94 L 01/23/18 15:00 99.5 F 82 48 H 132/63 95 01/23/18 14:50 99.5 F 98 H 37 H 97 01/23/18 14:40 99.5 F 83 40 H 97 Intake and Output (Last 8hrs): Intake & Output 01/23/18 01/23/18 01/23/18 06:59 14:59 22:59 Intake Total 192 31 6621 Output Total 1000 1000 Balance -30 10 780 Weight 187 lb 3 oz Intake: IV 534 30 9862 Cardizem 40 60 D5 Ns 1100 IVF 800 Oral 120 600 Output: Urine 1000 1000 Urethral (Gill) 1000 1000 Other: # Bowel Movements 0 - Medications Active Medications: Active Medications Generic Name Dose Route Start Last Admin Trade Name Freq PRN Reason Stop Dose Admin Acetaminophen 650 mg 01/23/18 14:07 Tylenol 325mg Tab PO Q4 PRN Fever >100.4 F Albuterol/Ipratropium 3 ml 01/23/18 14:00 01/23/18 13:17 Duoneb 3 Mg/0.5 Mg (3 Ml) Ud IH 3 ml [id number] MIRNA Administration Albuterol/Ipratropium 3 ml 01/23/18 17:58 Duoneb 3 Mg/0.5 Mg (3 Ml) Ud IH Q2H PRN Shortness of Breath Apixaban 5 mg 01/21/18 18:30 01/23/18 17:46 Eliquis PO 5 mg BID MIRNA Administration Protocol Budesonide 0.5 mg 01/23/18 20:00 Pulmicort Respules IH [id number] MIRNA diltiaZEM IVPB 100mg in NS 100 mls @ 10 mls/hr 01/21/18 15:02 01/23/18 15:55 Cardizem 100mg In Ns IV 0 mg/hr .Q10H PRN 0 mls/hr TITRATE PER MD ORDER Titration Protocol 10 MG/HR Vancomycin HCl 1 gm in 250 mls @ 167 mls/hr 01/21/18 16:45 01/23/18 17:46 Vancomycin 1gm IVPB 167 mls/hr Q12H MIRNA Administration Protocol Acetaminophen 1,000 mg in 100 mls @ 400 mls/hr 01/21/18 23:35 01/23/18 10:23 Ofirmev IVPB 01/23/18 23:36 400 mls/hr Q6H PRN Administration Temperature > 100.4 Dextrose/Sodium Chloride 1,000 mls @ 100 mls/hr 01/22/18 00:45 01/23/18 17:38 Dextrose 5%/0.9% Ns 1000 Ml IV 100 mls/hr .Q10H MIRNA Administration Aztreonam 100 mls @ 100 mls/hr 01/22/18 11:15 01/23/18 14:21 Azactam 1 Gm IVPB 01/29/18 11:16 100 mls/hr Q8 MIRNA Administration Protocol Insulin Detemir 40 unit 01/22/18 22:00 01/22/18 22:00 Levemir SC 40 u HS MIRNA Administration Insulin Human Lispro 12 units 01/22/18 07:30 01/23/18 17:46 Humalog SC 12 units AC MIRNA Administration Insulin Human Lispro 0 units 01/22/18 07:30 01/23/18 18:14 Humalog Low SC Not Given ACHS [facility] Protocol Methimazole 5 mg 01/21/18 16:45 01/23/18 10:22 Tapazole PO 5 mg DAILY MIRNA Administration Propranolol HCl 20 mg 01/22/18 14:00 01/23/18 17:46 Inderal PO 20 mg TID MIRNA Administration Verapamil HCl 40 mg 01/22/18 14:00 01/23/18 17:45 Calan Tab PO 40 mg TID MIRNA Administration Verapamil HCl 2.5 mg 01/22/18 13:05 01/22/18 13:31 Verapamil Inj IVP 2.5 mg Q6H PRN Administration for heart rate >130 - Patient Studies Lab Studies: Microbiology Studies 01/21/18 14:41 MRSA Culture (Admit) - Final Naris MRSA NOT DETECTED Lab Studies 01/23/18 01/23/18 01/23/18 Range/Units 16:19 11:11 07:23 WBC (4.5-11.0) 10^3/ul RBC (3.5-6.1) 10^6/uL Hgb (12.0-16.0) g/dL Hct (36.0-48.0) % MCV (80.0-105.0) fl MCH (25.0-35.0) pg MCHC (31.0-37.0) g/dl RDW (11.5-14.5) % Plt Count (120.0-450.0) 10^3/uL MPV (7.0-11.0) fl Gran % (50.0-68.0) % Lymph % (Auto) (22.0-35.0) % [place] % (Auto) (1.0-6.0) % Eos % (Auto) (1.5-5.0) % Baso % (Auto) (0.0-3.0) % Gran # (1.4-6.5) Lymph # (Auto) (1.2-3.4) [place] # (Auto) (0.1-0.6) Eos # (Auto) (0.0-0.7) Baso # (Auto) (0.0-2.0) K/mm3 Sodium (132-148) mmol/L Potassium (3.6-5.0) mmol/L Chloride (98-107) mmol/L Carbon Dioxide (21-33) mmol/L Anion Gap (10-20) BUN (7-21) mg/dL Creatinine (0.7-1.2) mg/dl Est GFR ( Amer) Est GFR (Non-Af Amer) POC Glucose (mg/dL) 127 H 190 H 128 H (65-110) mg/dL Random Glucose (70-110) mg/dL Hemoglobin A1c (4.2-6.5) % Calcium (8.4-10.5) mg/dL Phosphorus (2.5-4.5) mg/dL Magnesium (1.7-2.2) mg/dL Total Bilirubin (0.2-1.3) mg/dL AST (14-36) U/L ALT (7-56) U/L Alkaline Phosphatase (38-126) U/L Total Protein (5.8-8.3) g/dL Albumin (3.0-4.8) g/dL Globulin gm/dL Albumin/Globulin Ratio (1.1-1.8) Triglycerides (35-160) mg/dL Cholesterol (130-200) mg/dL LDL Cholesterol Direct (0-129) mg/dL HDL Cholesterol (29-60) mg/dL 08/01/0301/23/18 01/23/18 Range/Units 06:00 06:00 06:00 WBC 8.2 D (4.5-11.0) 10^3/ul RBC 4.30 (3.5-6.1) 10^6/uL Hgb 13.4 (12.0-16.0) g/dL Hct 39.4 (36.0-48.0) % MCV 91.6 (80.0-105.0) fl MCH 31.2 (25.0-35.0) pg MCHC 34.0 (31.0-37.0) g/dl RDW 12.6 (11.5-14.5) % Plt Count 244 (120.0-450.0) 10^3/uL MPV 11.6 H (7.0-11.0) fl Gran % 75.6 H (50.0-68.0) % Lymph % (Auto) 13.0 L (22.0-35.0) % [place] % (Auto) 9.9 H (1.0-6.0) % Eos % (Auto) 1.1 L (1.5-5.0) % Baso % (Auto) 0.4 (0.0-3.0) % Gran # 6.21 (1.4-6.5) Lymph # (Auto) 1.1 L (1.2-3.4) [place] # (Auto) 0.8 H (0.1-0.6) Eos # (Auto) 0.1 (0.0-0.7) Baso # (Auto) 0.03 (0.0-2.0) K/mm3 Sodium 139 (132-148) mmol/L Potassium 3.4 L (3.6-5.0) mmol/L Chloride 108 H (98-107) mmol/L Carbon Dioxide 20 L (21-33) mmol/L Anion Gap 15 (10-20) BUN 8 (7-21) mg/dL Creatinine 0.6 L (0.7-1.2) mg/dl Est GFR ( Amer) > 60 Est GFR (Non-Af Amer) > 60 POC Glucose (mg/dL) (65-110) mg/dL Random Glucose 105 (70-110) mg/dL Hemoglobin A1c 9.2 H (4.2-6.5) % Calcium 8.1 L (8.4-10.5) mg/dL Phosphorus 1.8 L (2.5-4.5) mg/dL Magnesium 1.9 (1.7-2.2) mg/dL Total Bilirubin 0.4 (0.2-1.3) mg/dL AST 80 H D (14-36) U/L ALT 71 H (7-56) U/L Alkaline Phosphatase 68 (38-126) U/L Total Protein 6.4 (5.8-8.3) g/dL Albumin 3.2 (3.0-4.8) g/dL Globulin 3.2 gm/dL Albumin/Globulin Ratio 1.0 L (1.1-1.8) Triglycerides 196 H (35-160) mg/dL Cholesterol 123 L (130-200) mg/dL LDL Cholesterol Direct 66 (0-129) mg/dL HDL Cholesterol 16 L (29-60) mg/dL 01/22/18 01/22/18 01/22/18 Range/Units 21:40 16:03 11:03 WBC (4.5-11.0) 10^3/ul RBC (3.5-6.1) 10^6/uL Hgb (12.0-16.0) g/dL Hct (36.0-48.0) % MCV (80.0-105.0) fl MCH (25.0-35.0) pg MCHC (31.0-37.0) g/dl RDW (11.5-14.5) % Plt Count (120.0-450.0) 10^3/uL MPV (7.0-11.0) fl Gran % (50.0-68.0) % Lymph % (Auto) (22.0-35.0) % [place] % (Auto) (1.0-6.0) % Eos % (Auto) (1.5-5.0) % Baso % (Auto) (0.0-3.0) % Gran # (1.4-6.5) Lymph # (Auto) (1.2-3.4) [place] # (Auto) (0.1-0.6) Eos # (Auto) (0.0-0.7) Baso # (Auto) (0.0-2.0) K/mm3 Sodium (132-148) mmol/L Potassium (3.6-5.0) mmol/L Chloride (98-107) mmol/L Carbon Dioxide (21-33) mmol/L Anion Gap (10-20) BUN (7-21) mg/dL Creatinine (0.7-1.2) mg/dl Est GFR ( Amer) Est GFR (Non-Af Amer) POC Glucose (mg/dL) 94 112 H 181 H (65-110) mg/dL Random Glucose (70-110) mg/dL Hemoglobin A1c (4.2-6.5) % Calcium (8.4-10.5) mg/dL Phosphorus (2.5-4.5) mg/dL Magnesium (1.7-2.2) mg/dL Total Bilirubin (0.2-1.3) mg/dL AST (14-36) U/L ALT (7-56) U/L Alkaline Phosphatase (38-126) U/L Total Protein (5.8-8.3) g/dL Albumin (3.0-4.8) g/dL Globulin gm/dL Albumin/Globulin Ratio (1.1-1.8) Triglycerides (35-160) mg/dL Cholesterol (130-200) mg/dL LDL Cholesterol Direct (0-129) mg/dL HDL Cholesterol (29-60) mg/dL 01/22/18 Range/Units 07:22 WBC (4.5-11.0) 10^3/ul RBC (3.5-6.1) 10^6/uL Hgb (12.0-16.0) g/dL Hct (36.0-48.0) % MCV (80.0-105.0) fl MCH (25.0-35.0) pg MCHC (31.0-37.0) g/dl RDW (11.5-14.5) % Plt Count (120.0-450.0) 10^3/uL MPV (7.0-11.0) fl Gran % (50.0-68.0) % Lymph % (Auto) (22.0-35.0) % [place] % (Auto) (1.0-6.0) % Eos % (Auto) (1.5-5.0) % Baso % (Auto) (0.0-3.0) % Gran # (1.4-6.5) Lymph # (Auto) (1.2-3.4) [place] # (Auto) (0.1-0.6) Eos # (Auto) (0.0-0.7) Baso # (Auto) (0.0-2.0) K/mm3 Sodium (132-148) mmol/L Potassium (3.6-5.0) mmol/L Chloride (98-107) mmol/L Carbon Dioxide (21-33) mmol/L Anion Gap (10-20) BUN (7-21) mg/dL Creatinine (0.7-1.2) mg/dl Est GFR ( Amer) Est GFR (Non-Af Amer) POC Glucose (mg/dL) 109 (65-110) mg/dL Random Glucose (70-110) mg/dL Hemoglobin A1c (4.2-6.5) % Calcium (8.4-10.5) mg/dL Phosphorus (2.5-4.5) mg/dL Magnesium (1.7-2.2) mg/dL Total Bilirubin (0.2-1.3) mg/dL AST (14-36) U/L ALT (7-56) U/L Alkaline Phosphatase (38-126) U/L Total Protein (5.8-8.3) g/dL Albumin (3.0-4.8) g/dL Globulin gm/dL Albumin/Globulin Ratio (1.1-1.8) Triglycerides (35-160) mg/dL Cholesterol (130-200) mg/dL LDL Cholesterol Direct (0-129) mg/dL HDL Cholesterol (29-60) mg/dL Laboratory Results - last 24 hr 01/22/18 01/22/18 01/22/18 07:22 11:03 16:03 WBC RBC Hgb Hct MCV MCH MCHC RDW Plt Count MPV Gran % Lymph % (Auto) [place] % (Auto) Eos % (Auto) Baso % (Auto) Gran # Lymph # (Auto) [place] # (Auto) Eos # (Auto) Baso # (Auto) Sodium Potassium Chloride Carbon Dioxide Anion Gap BUN Creatinine Est GFR ( Amer) Est GFR (Non-Af Amer) POC Glucose (mg/dL) 109 181 H 112 H Random Glucose Hemoglobin A1c Calcium Phosphorus Magnesium Total Bilirubin AST ALT Alkaline Phosphatase Total Protein Albumin Globulin Albumin/Globulin Ratio Triglycerides Cholesterol LDL Cholesterol Direct HDL Cholesterol 01/22/18 01/23/18 01/23/18 21:40 06:00 06:00 WBC 8.2 D RBC 4.30 Hgb 13.4 Hct 39.4 MCV 91.6 MCH 31.2 MCHC 34.0 RDW 12.6 Plt Count 244 MPV 11.6 H Gran % 75.6 H Lymph % (Auto) 13.0 L [place] % (Auto) 9.9 H Eos % (Auto) 1.1 L Baso % (Auto) 0.4 Gran # 6.21 Lymph # (Auto) 1.1 L [place] # (Auto) 0.8 H Eos # (Auto) 0.1 Baso # (Auto) 0.03 Sodium 139 Potassium 3.4 L Chloride 108 H Carbon Dioxide 20 L Anion Gap 15 BUN 8 Creatinine 0.6 L Est GFR ( Amer) > 60 Est GFR (Non-Af Amer) > 60 POC Glucose (mg/dL) 94 Random Glucose 105 Hemoglobin A1c Calcium 8.1 L Phosphorus 1.8 L Magnesium 1.9 Total Bilirubin 0.4 AST 80 H D ALT 71 H Alkaline Phosphatase 68 Total Protein 6.4 Albumin 3.2 Globulin 3.2 Albumin/Globulin Ratio 1.0 L Triglycerides 196 H Cholesterol 123 L LDL Cholesterol Direct 66 HDL Cholesterol 16 L 01/23/18 01/23/18 01/23/18 06:00 07:23 11:11 WBC RBC Hgb Hct MCV MCH MCHC RDW Plt Count MPV Gran % Lymph % (Auto) [place] % (Auto) Eos % (Auto) Baso % (Auto) Gran # Lymph # (Auto) [place] # (Auto) Eos # (Auto) Baso # (Auto) Sodium Potassium Chloride Carbon Dioxide Anion Gap BUN Creatinine Est GFR ( Amer) Est GFR (Non-Af Amer) POC Glucose (mg/dL) 128 H 190 H Random Glucose Hemoglobin A1c 9.2 H Calcium Phosphorus Magnesium Total Bilirubin AST ALT Alkaline Phosphatase Total Protein Albumin Globulin Albumin/Globulin Ratio Triglycerides Cholesterol LDL Cholesterol Direct HDL Cholesterol 01/23/18 16:19 WBC RBC Hgb Hct MCV MCH MCHC RDW Plt Count MPV Gran % Lymph % (Auto) [place] % (Auto) Eos % (Auto) Baso % (Auto) Gran # Lymph # (Auto) [place] # (Auto) Eos # (Auto) Baso # (Auto) Sodium Potassium Chloride Carbon Dioxide Anion Gap BUN Creatinine Est GFR ( Amer) Est GFR (Non-Af Amer) POC Glucose (mg/dL) 127 H Random Glucose Hemoglobin A1c Calcium Phosphorus Magnesium Total Bilirubin AST ALT Alkaline Phosphatase Total Protein Albumin Globulin Albumin/Globulin Ratio Triglycerides Cholesterol LDL Cholesterol Direct HDL Cholesterol Critical Care Progress Note - Nutrition Nutrition: Nutrition Category Date Time Status Consistent Carbohydrate [DIET] Diets 01/22/18 Breakfast Ordered Attending/Attestation - Attestation I have personally seen and examined this patient.: Yes I have fully participated in the care of the patient.: Yes I have reviewed all pertinent clinical information: Yes Notes (Text): 01/23/18 18:[address] willett's note
[2018-01-23] MEDS: Albuterol-Ipratrop 3 mg / 0.5 (3 ml) UD IH SCH ×2 (13:17→20:22)
--- NOTE | 2018-01-23 14:44 | PN ---
Copied To: Moses Willett MD Attending MD: Moses Willett MD DATE: 01/23/2018 Patient is seen and examined at bedside. She is comfortable. She is on Cardizem drip 5 mg/hour and her heart rate is 92, still irregular and still in atrial fibrillation. Urine came back positive for Klebsiella pneumonia. The patient is on aztreonam. ID service is following her. OBJECTIVE: VITAL SIGNS: Blood pressure 109/61, oxygen saturation 94% on nasal cannula. Temperature 100.6 which is a T-max overnight. ENT: Head and neck atraumatic. LUNGS: Clear to auscultation bilaterally. Decreased breath sounds. HEART: Irregular rate and rhythm. S1, S2 distant. ABDOMEN: Soft, nontender, nondistended. MUSCULOSKELETAL: No C/C/E. NEUROLOGICAL: The patient moves all extremities spontaneously. SKIN: Moist. PSYCHIATRIC: The patient is alert, awake and oriented x3. LABORATORY DATA: WBC 8.2, hemoglobin 13.4, platelet count 244. Urine positive for leukocyte esterase and multiple WBCs, negative for urine nitrites. Sodium 139, potassium 3.4, chloride 108, carbon dioxide 20, BUN 8, creatinine 0.6, glucose 128, AST 80, ALT 71, total bilirubin 0.4. MEDICATIONS: Apixaban 5 mg b.i.d., Tylenol IV p.r.n., aztreonam, Cardizem drip, D5 normal saline at 100 mL/hour, Levemir 40 units subcu at bedtime, Humalog 12 units subcu before meals, sliding scale with low protocol, methimazole, propranolol, vancomycin, verapamil p.r.n. and 40 mg p.o. t.i.d. ASSESSMENT AND PLAN: This is a 77-year-old lady who presented with atrial fibrillation with rapid ventricular response secondary to combination of factors, however, most likely sepsis/urinary tract infection/pyelonephritis and stable chronic obstructive pulmonary disease were major contributors here. Presently, the patient is on antibiotics with some improvement in leukocytosis and fever. ID service is following the patient as well. The patient appears to be euvolemic. Hyperthyroidism has been treated and the patient is on therapeutic anticoagulation with Eliquis. The patient is on bronchodilators and inhaled corticosteroids. She appears to be doing better. Her heart rate is controlled and Cardizem drip has been tapered down. She is on verapamil and propranolol. Echocardiogram is pending. We will continue to target euvolemia, euglycemia, normothermia and oxygen saturation more than 90%. We will continue with DVT and GI prophylaxis. Addendum: HR 80s, still afib, off of cardizem drip, very comfortable. if ok overnight will transfer to [facility] in am ccm time 40 min Moses Willett MD MTDEdgar
--- NOTE | 2018-01-23 14:54 | CP.PCM.CON ---
History of Present Illness - History of Present Illness History of Present Illness: Palliative consult requested by Dr Dianna Woodruff Reason: Advance care planning 77 year old female with history of CAD, A Fib and COPD who presented to ED on 01/21/18 with profound weakness, fatigue, diarrhea, urinary frequency and SOB of three days duration. She denied headache,fever,chills, blood or mucous in stool , sort throat, headache, dizziness, chest/abdominal pain. Found to be in rapid A FIB with RVR upon arrival to ED, started on Cardizem drip. Transferred to ICU , spiked temp of 102. Chest x ray negative. CT of abdomen showed left sided pernephric stranding, no hydronephrosis. Labs; Wbc 20.7, Hgb 14.5, Plt 338, Na 130, K 4.4, BUN 26, Creat. 0.9, Glucose 400,AST 25, ALT 21, Urine + for blood,leukocytes. Urine culture positive for Klebsiella, blood cultures negative. PMHx: DM,CAD, COPD, A Fib on Elequis,hyperthyroidism. Social History: Never smoker, no alcohol or drug use. Lives alone Family History: Non contributory. Advance Care Planning: The patient has a POLST: DNR/DNI. Review of Systems: As per HPI, otherwise negative 12 point review Past Patient History - Infectious Disease Hx of Infectious Diseases: None - Tetanus Immunizations Tetanus Immunization: Unknown - Past Social History Smoking Status: Never Smoked - CARDIAC Hx Cardiac Disorders: Yes Hx Angina: Yes Hx Cardia Arrhythmia: Yes Hx Circulatory Problems: No Hx Congestive Heart Failure: No Hx Heart Murmur: No Hx Heart Transplant: No Hx Hypercholesterolemia: No Hx Hypertension: Yes Hx Internal Defibrillator: No Hx Mitral Valve Prolapse: No Hx Pacemaker: No Hx Peripheral Edema: No Hx Peripheral Vascular Disease: No - PULMONARY Hx Respiratory Disorders: No Hx Asthma: Yes Hx Bronchitis: No Hx Chronic Obstructive Pulmonary Disease (COPD): No Hx Emphysema: No Hx Pneumonia: No Hx Respiratory Aspiration: No Hx Respiratory Tract Infection: No Hx Sleep Apnea: No Hx Tuberculosis: No - NEUROLOGICAL Hx Neurological Disorder: No Hx Alzheimer's Disease: No HX Cerebrovascular Accident: No Hx Dementia: No Hx Dizziness: No Hx Meningitis: No Hx Migraine: No Hx Parkinson's Disease: No Hx Seizures: No Hx Transient Ischemic Attacks (TIA): No - HEENT Hx HEENT Problems: No Hx Blind: No Hx Cataracts: No Hx Deafness: No Hx Difficulty Chewing: No Hx Epistaxis: No Hx Glaucoma: No Hx Macular Degeneration: No - RENAL Hx Chronic Kidney Disease: No Hx Dialysis: No Hx Kidney Stones: No Hx Neurogenic Bladder: No Hx Pyelonephritis: No Hx Renal (Kidney) Cancer: No Hx Renal Failure: No - ENDOCRINE/METABOLIC Hx Endocrine Disorders: No Hx Adrenal Cancer: No Hx Diabetes Insipidus: No Hx Diabetes Mellitus Type 1: No Hx Diabetes Mellitus Type 2: Yes Hx Hyperthyroidism: Yes Hx Hypothyroidism: No Hx Systemic Lupus Erythematosus: No - HEMATOLOGICAL/ONCOLOGICAL Hx Blood Disorders: No Hx AIDS: No Hx Anemia: No Hx Cancer: Yes Hx Chemotherapy: No Hx Cirrhosis: No Hx Hemophilia: No Hx Hepatitis A: No Hx Hepatitis B: No Hx Hepatitis C: No Hx Human Immunodeficiency Virus (HIV): No Hx Metastesis: No Hx Shingles: No Hx Sickle Cell Disease: No Hx Unexplained Bleeding: No - INTEGUMENTARY Hx Dermatological Problems: No Hx Basil Cell: No Hx Eczema: No Hx Melanoma: No Hx Psoriasis: No Hx Squamous Cell: No - MUSCULOSKELETAL/RHEUMATOLOGICAL Hx Musculoskeletal Disorders: Yes Hx Arthritis: No Hx Back Pain: No Hx Degenerative Joint Disease: No Hx Falls: No Hx Fractures: No Hx Gout: No Hx Herniated Disk: No Hx Myasthenia Gravis: No Hx Osteoarthritis: Yes Hx Osteomyelitis: No Hx Osteoporosis: No Hx Rhabdomyolysis: No Hx Spinal Stenosis: No Hx Unsteady Gait: No - GASTROINTESTINAL Hx Gastrointestinal Disorders: No Hx Colostomy: No Hx Crohn's Disease: No Hx Diverticulitis: No Hx Gall Bladder Disease: No Hx Gastroesophageal Reflux: No Hx Ileostomy: No Hx Liver Failure: No Hx Pancreatitis: No HX Swallowing Problems: No Hx Ulcer: No - GENITOURINARY/GYNECOLOGICAL Hx Genitourinary Disorders: No Hx Hematuria: No Hx Incontinence: No Hx Sexually Transmitted Disorders: No Hx Urinary Tract Infection: No - PSYCHIATRIC Hx Psychophysiologic Disorder: No Hx Anxiety: No Hx Bipolar Disorder: No Hx Depression: No Hx Emotional Abuse: No Hx Hallucinations: No Hx Panic Symptoms: No Hx Paranoia: No Hx Post Traumatic Stress Disorder: No Hx Psychosis: No Hx Physical Abuse: No Hx Schizophrenia: No Hx Sexual Abuse: No - SURGICAL HISTORY Hx Hysterectomy: Yes Other/Comment: lumpectomy R breast - ANESTHESIA Hx Anesthesia: Yes Hx Anesthesia Reactions: No Hx Malignant Hyperthermia: No Meds Allergies/Adverse Reactions: Allergies Allergy/AdvReac Type Severity Reaction Status Date / Time Penicillins Allergy RASH Verified 08/09/17 13:24 shrimp Allergy RASH Verified 08/09/17 13:24 clarithromycin AdvReac RASH Verified 08/09/17 13:24 flu vaccine AdvReac FEVER Uncoded 08/14/17 13:05 - Medications Medications: Current Medications Acetaminophen (Tylenol 325mg Tab) 650 mg PO Q4 PRN PRN Reason: Fever >100.4 F Albuterol/Ipratropium (Duoneb 3 Mg/0.5 Mg (3 Ml) Ud) 3 ml IH [id number] MIRNA Last Admin: 01/23/18 13:17 Dose: 3 ml Apixaban (Eliquis) 5 mg PO BID MIRNA PRN Reason: Protocol Last Admin: 01/23/18 10:23 Dose: 5 mg Budesonide (Pulmicort Respules) 0.5 mg IH [id number] MIRNA Digoxin (Lanoxin) 0.25 mg IVP ONCE ONE Stop: 01/23/18 16:01 diltiaZEM IVPB 100mg in NS (Cardizem 100mg In Ns) 100 mls @ 10 mls/hr IV .Q10H PRN; Protocol; 10 MG/HR PRN Reason: TITRATE PER MD ORDER Last Titration: 01/23/18 11:59 Dose: 5 mg/hr, 5 mls/hr Vancomycin HCl (Vancomycin 1gm) 1 gm in 250 mls @ 167 mls/hr IVPB Q12H MIRNA PRN Reason: Protocol Last Admin: 01/23/18 05:43 Dose: 167 mls/hr Acetaminophen (Ofirmev) 1,000 mg in 100 mls @ 400 mls/hr IVPB Q6H PRN PRN Reason: Temperature > 100.4 Stop: 01/23/18 23:36 Last Admin: 01/23/18 10:23 Dose: 400 mls/hr Dextrose/Sodium Chloride (Dextrose 5%/0.9% Ns 1000 Ml) 1,000 mls @ 100 mls/hr IV .Q10H MIRNA Last Admin: 01/23/18 10:23 Dose: 100 mls/hr Aztreonam (Azactam 1 Gm) 100 mls @ 100 mls/hr IVPB Q8 MIRNA PRN Reason: Protocol Stop: 01/29/18 11:16 Last Admin: 01/23/18 14:21 Dose: 100 mls/hr Insulin Detemir (Levemir) 40 unit SC HS [facility] Last Admin: 01/22/18 22:00 Dose: 40 u Insulin Human Lispro (Humalog) 12 units SC AC [facility] Last Admin: 01/23/18 12:38 Dose: 12 units Insulin Human Lispro (Humalog Low) 0 units SC ACHS [facility] PRN Reason: Protocol Last Admin: 01/23/18 12:39 Dose: 1 units Methimazole (Tapazole) 5 mg PO DAILY [facility] Last Admin: 01/23/18 10:22 Dose: 5 mg Potassium Phos/Sodium Phos (Neutra-Phos) 1 pkt PO BID [facility] Stop: 01/23/18 18:01 Last Admin: 01/23/18 09:34 Dose: 1 pkt Propranolol HCl (Inderal) 20 mg PO TID [facility] Last Admin: 01/23/18 14:21 Dose: 20 mg Verapamil HCl (Calan Tab) 40 mg PO TID [facility] Last Admin: 01/23/18 14:18 Dose: 40 mg Verapamil HCl (Verapamil Inj) 2.5 mg IVP Q6H PRN PRN Reason: for heart rate >130 Last Admin: 01/22/18 13:31 Dose: 2.5 mg Physical Exam - Constitutional Appears: No Acute Distress, Chronically Ill - Head Exam Head Exam: NORMAL INSPECTION - Eye Exam Eye Exam: Normal appearance, PERRL - ENT Exam ENT Exam: Mucous Membranes Moist, Normal Oropharynx - Neck Exam Neck exam: Positive for: Normal Inspection - Respiratory Exam Respiratory Exam: Decreased Breath Sounds, NORMAL BREATHING PATTERN - Cardiovascular Exam Cardiovascular Exam: Irregular Rhythm, +S1, +S2 - GI/Abdominal Exam GI & Abdominal Exam: Normal Bowel Sounds, Soft Additional comments: no tenderness - Extremities Exam Extremities exam: Positive for: full ROM, pedal pulses present - Back Exam Back exam: NORMAL INSPECTION - Neurological Exam Neurological exam: Alert, Oriented x3 - Skin Skin Exam: Dry, Pallor - Additional Findings Additional findings: Palliative performance scale rating 50% Results - Vital Signs Recent Vital Signs: Last Vital Signs Temp 100.6 F H 01/23/18 08:37 Pulse 85 01/23/18 14:21 Resp 31 H 01/23/18 08:36 BP 112/64 01/23/18 14:21 Pulse Ox 90 L 01/23/18 08:11 - Labs Result Diagrams: 01/23/18 06:00 01/23/18 06:00 Labs: Laboratory Results - last 24 hr 01/22/18 01/22/18 01/22/18 07:22 11:00 11:03 WBC RBC Hgb Hct MCV MCH MCHC RDW Plt Count MPV Gran % Lymph % (Auto) [place] % (Auto) Eos % (Auto) Baso % (Auto) Gran # Lymph # (Auto) [place] # (Auto) Eos # (Auto) Baso # (Auto) Sodium Potassium Chloride Carbon Dioxide Anion Gap BUN Creatinine Est GFR ( Amer) Est GFR (Non-Af Amer) POC Glucose (mg/dL) 109 181 H Random Glucose Hemoglobin A1c Calcium Phosphorus Magnesium Total Bilirubin AST ALT Alkaline Phosphatase Total Protein Albumin Globulin Albumin/Globulin Ratio Triglycerides Cholesterol LDL Cholesterol Direct HDL Cholesterol Procalcitonin 0.47 01/22/18 01/22/18 01/23/18 16:03 21:40 06:00 WBC 8.2 D RBC 4.30 Hgb 13.4 Hct 39.4 MCV 91.6 MCH 31.2 MCHC 34.0 RDW 12.6 Plt Count 244 MPV 11.6 H Gran % 75.6 H Lymph % (Auto) 13.0 L [place] % (Auto) 9.9 H Eos % (Auto) 1.1 L Baso % (Auto) 0.4 Gran # 6.21 Lymph # (Auto) 1.1 L [place] # (Auto) 0.8 H Eos # (Auto) 0.1 Baso # (Auto) 0.03 Sodium Potassium Chloride Carbon Dioxide Anion Gap BUN Creatinine Est GFR ( Amer) Est GFR (Non-Af Amer) POC Glucose (mg/dL) 112 H 94 Random Glucose Hemoglobin A1c Calcium Phosphorus Magnesium Total Bilirubin AST ALT Alkaline Phosphatase Total Protein Albumin Globulin Albumin/Globulin Ratio Triglycerides Cholesterol LDL Cholesterol Direct HDL Cholesterol Procalcitonin 01/23/18 01/23/18 01/23/18 06:00 06:00 07:23 WBC RBC Hgb Hct MCV MCH MCHC RDW Plt Count MPV Gran % Lymph % (Auto) [place] % (Auto) Eos % (Auto) Baso % (Auto) Gran # Lymph # (Auto) [place] # (Auto) Eos # (Auto) Baso # (Auto) Sodium 139 Potassium 3.4 L Chloride 108 H Carbon Dioxide 20 L Anion Gap 15 BUN 8 Creatinine 0.6 L Est GFR ( Amer) > 60 Est GFR (Non-Af Amer) > 60 POC Glucose (mg/dL) 128 H Random Glucose 105 Hemoglobin A1c 9.2 H Calcium 8.1 L Phosphorus 1.8 L Magnesium 1.9 Total Bilirubin 0.4 AST 80 H D ALT 71 H Alkaline Phosphatase 68 Total Protein 6.4 Albumin 3.2 Globulin 3.2 Albumin/Globulin Ratio 1.0 L Triglycerides 196 H Cholesterol 123 L LDL Cholesterol Direct 66 HDL Cholesterol 16 L Procalcitonin Assessment & Plan - Assessment and Plan (Free Text) Assessment: 77 year old female with history of DM, CAD, COPD and A Fib who was admitted with rapid A Fib/RVR, UTI, sepsis, hyperglycemia and dehydration Ms. Bullock is known to me from previous admissions. She is alert and oriented, offers no complaints at present. Doesn't know how she got this "sick". States she is feeing better today. She is independent of ADL's at home. She and I had completed a POLST Directive in the past. The patient reaffirms that she is DNR/ DNI. Psychosocial support provided. Time spent in Advance care planning discussion, 15 minutes Plan: Advance Care Planning:POLST Sepsis/UTI: Urine + for Klebsiella, on Vancomycin, Azactim. A Fib/RVR: Continue Cardizem, Digoxin, Calan,Elequis . Hyperglycemia: Monitor glucose, on Lispro, Levemir. Hyperthyroidism: Continue Tapazole
--- NOTE | 2018-01-23 15:21 | PN ---
Copied To: Gail Modi MD Attending MD: Gail Modi MD DATE: 01/23/2018 REASON FOR THE CONSULTATION: Followup AFib with rapid ventricular rate, history of chronic atrial fibrillation, complained of mild shortness of breath, low-grade fever. SUBJECTIVE: The patient denies any chest pain. Denies any shortness of breath. Feels mild heart is racing. OBJECTIVE: GENERAL: Not in any apparent distress. VITAL SIGNS: Temperature 100.6, heart rate 149, blood pressure 130/88. HEENT: PERRLA. Extraocular muscles intact. NECK: Supple. No carotid bruits or thyromegaly. CHEST: Clear to auscultation. HEART: S1 and S2 regular. ABDOMEN: Soft. EXTREMITIES: Clubbing and cyanosis negative. LABORATORY DATA: Blood workup: WBC 8.2, hemoglobin 13.4, hematocrit 39.4, platelet count 244. Chemistry shows sodium 139, potassium 3.4, chloride 108, carbon dioxide 20, anion gap of 15, BUN 8, creatinine 0.6. Troponin remains negative. Urinalysis shows moderate blood in urine. Urine glucose 1000, cloudy. IMPRESSION: A 77-year-old obese female with past medical history significant for chronic atrial fibrillation, on anticoagulation, Eliquis. Admitted with atrial fibrillation with rapid ventricular rate, sepsis, possibly urinary tract infection, history of nonobstructive coronary artery disease, being followed by Dr. Mccain, status post cardiac catheterization in the past, history of stent in the past, history of coronary intervention in 2009. Repeat catheterization in [facility] that was treated medically. Last echo on 05/18/2017 shows normal left ventricular function, ejection fraction 60%, right ventricular systolic pressure 50. The patient has stent on 06/27/[address] Pearl. Repeat catheterization done on 06/27/2012 shows patent stent in left anterior descending artery, placed in 2009. Possibly rapid rate is multifactorial secondary to hyperthyroidism. The patient has a history of hyperthyroidism as well as sepsis and history of chronic atrial fibrillation. RECOMMENDATION: Continue propranolol 20 mg three times a day. We will give 2 doses of digoxin to slow the heart rate, to increase the AV block. Continue Cardizem. Continue Eliquis. Continue broad-spectrum antibiotic. We will follow with you. Thank you, Dr. Woodruff, for providing us the opportunity in taking care of the patient, Hawa Chavis. Gail Modi MD
[2018-01-23] MEDS ORDERED: Albuterol-Ipratrop 3 mg / 0.5 (3 ml) UD IH PRN (17:58)
--- NOTE | 2018-01-23 18:24 | CP.PCM.PN ---
Subjective - Date & Time of Evaluation Date of Evaluation: 01/23/18 Time of Evaluation: 09:30 - Subjective Subjective: Patient is still having fevers but no chills, not in distress, dysuria is improving, no diarrhea. Objective - Vital Signs/Intake and Output Vital Signs (last 24 hours): Temp Pulse Resp BP Pulse Ox 99.0 F 126 H 21 100/70 97 01/23/18 04:20 01/23/18 04:20 01/23/18 04:20 01/23/18 04:00 01/23/18 04:20 Intake and Output: 01/22/18 01/23/18 18:59 06:59 Intake Total 2815 Output Total 800 Balance 2014 - Medications Medications: Current Medications Apixaban (Eliquis) 5 mg PO BID MIRNA PRN Reason: Protocol Last Admin: 01/22/18 17:43 Dose: 5 mg diltiaZEM IVPB 100mg in NS (Cardizem 100mg In Ns) 100 mls @ 10 mls/hr IV .Q10H PRN; Protocol; 10 MG/HR PRN Reason: TITRATE PER MD ORDER Last Titration: 01/22/18 13:50 Dose: 0 mg/hr, 0 mls/hr Vancomycin HCl (Vancomycin 1gm) 1 gm in 250 mls @ 167 mls/hr IVPB Q12H MIRNA PRN Reason: Protocol Last Admin: 01/23/18 05:43 Dose: 167 mls/hr Acetaminophen (Ofirmev) 1,000 mg in 100 mls @ 400 mls/hr IVPB Q6H PRN PRN Reason: Temperature > 100.4 Stop: 01/23/18 23:36 Last Admin: 01/22/18 22:27 Dose: 400 mls/hr Dextrose/Sodium Chloride (Dextrose 5%/0.9% Ns 1000 Ml) 1,000 mls @ 100 mls/hr IV .Q10H [facility] Last Admin: 01/22/18 23:45 Dose: 100 mls/hr Aztreonam (Azactam 1 Gm) 100 mls @ 100 mls/hr IVPB Q8 MIRNA PRN Reason: Protocol Stop: 01/29/18 11:16 Last Admin: 01/23/18 05:55 Dose: 100 mls/hr Insulin Detemir (Levemir) 40 unit SC HS [facility] Last Admin: 01/22/18 22:00 Dose: 40 u Insulin Human Lispro (Humalog) 12 units SC AC [facility] Last Admin: 01/22/18 16:10 Dose: 12 units Insulin Human Lispro (Humalog Low) 0 units SC ACHS [facility] PRN Reason: Protocol Last Admin: 01/22/18 22:37 Dose: Not Given Methimazole (Tapazole) 5 mg PO DAILY [facility] Last Admin: 01/22/18 09:04 Dose: 5 mg Metoprolol Tartrate (Lopressor) 25 mg PO BID [facility] Last Admin: 01/22/18 17:43 Dose: 25 mg Propranolol HCl (Inderal) 20 mg PO TID [facility] Last Admin: 01/22/18 17:43 Dose: 20 mg Verapamil HCl (Calan Tab) 40 mg PO TID [facility] Last Admin: 01/22/18 17:42 Dose: 40 mg Verapamil HCl (Verapamil Inj) 2.5 mg IVP Q6H PRN PRN Reason: for heart rate >130 Last Admin: 01/22/18 13:31 Dose: 2.5 mg - Labs Labs: 01/23/18 06:00 01/22/18 06:10 PT 18.5 SECONDS (9.4-12.5) H 01/21/18 08:45 INR 1.59 01/21/18 08:45 APTT 28.5 Seconds (25.1-36.5) 01/21/18 08:45 - Constitutional Appears: Chronically Ill - Head Exam Head Exam: NORMAL INSPECTION - ENT Exam ENT Exam: Mucous Membranes Moist - Neck Exam Neck Exam: absent: Meningismus - Respiratory Exam Respiratory Exam: Decreased Breath Sounds - Cardiovascular Exam Cardiovascular Exam: +S1, +S2 - GI/Abdominal Exam GI & Abdominal Exam: Soft. absent: Tenderness Assessment and Plan - Assessment and Plan (Free Text) Plan: Assessment Severe sepsis with hypoxic respiratory failure due to left sided pyelonephritis with gram negative bacilli on top of atrial fibrillation with rapid ventricular response atrial fibrillation on anticoagulation COPD obesity with BMI 31 Plan continue Azactam day 2 and will d/c Vancomycin pending identification and sensitivities of the gram negative bacilli in the urine cx; reviewed CT A/P will follow up further Cardiology recommendations regarding atrial fibrillation will continue to monitor clinically, trend fever curve
[2018-01-23] MEDS: Insulin Detemir 100 units/ml Vial (Levemir) SC SCH (22:37)
[2018-01-23] MEDS ORDERED: Dextrose 50% SYRINGE Inj (50 ml) IVP ONE (22:59)
[2018-01-24] MEDS: Albuterol-Ipratrop 3 mg / 0.5 (3 ml) UD IH SCH (01:47)
[2018-01-24] MEDS: Vancomycin 1gm in NS 250ml 1 GM/250 ML BAG IVPB SCH (04:34)
[2018-01-24] MEDS: Aztreonam 1 Gm in NS 100mL 100 ML IVPB SCH ×3 (05:34→22:29)
[2018-01-24 06:16] LABS: BASO # 0.03 K/mm3 (0.0-2.0); BASO % 0.3 % (0.0-3.0); EOS # 0.2 (0.0-0.7); EOS % 1.9 % (1.5-5.0); GRAN # 6.4 (1.4-6.5); HEMOGLOBIN 13.4 g/dL (12.0-16.0); LYMPH # 1.5 (1.2-3.4); LYMPH % 16.1 % (22.0-35.0); MEAN CELL VOLUME 91.2 fl (80.0-105.0); MEAN CORPUSCULAR HEMOGLOBIN 31.8 pg (25.0-35.0); MEAN CORPUSCULAR HGB CONC 34.9 g/dl (31.0-37.0); MEAN PLATELET VOLUME 11.6 fl (7.0-11.0); MONO # 1.1 (0.1-0.6); MONO % 11.7 % (1.0-6.0); RBC 4.21 10^6/uL (3.5-6.1); RED CELL DISTRIBUTION WIDTH 12.7 % (11.5-14.5); WHITE BLOOD COUNT 9.1 10^3/ul (4.5-11.0)
[2018-01-24 06:32] LABS: ALBUMIN 3.1 g/dL (3.0-4.8); ALT/SGPT 72 U/L (7-56); AST/SGOT 66 U/L (14-36); BLOOD UREA NITROGEN 8 mg/dL (7-21); CALCIUM 8.2 mg/dL (8.4-10.5); GFR AFRICAN-AMERICAN > 60; GFR NON-AFRICAN AMERICAN > 60
[2018-01-24] MEDS ORDERED: Ipratropium 0.02% Inhal Soln (0.5 mg/2.5 ml) UD IH PRN (06:59)
[2018-01-24] MEDS ORDERED: Levalbuterol 1.25 MG/3 ML Inhal Soln UD IH PRN ×2 (06:59→10:48)
[2018-01-24] MEDS ORDERED: Levalbuterol 1.25 MG/3 ML Inhal Soln UD IH ONE (07:15)
[2018-01-24] MEDS ORDERED: Ipratropium 0.02% Inhal Soln (0.5 mg/2.5 ml) UD IH ONE (07:15)
[2018-01-24] MEDS: Ipratropium 0.02% Inhal Soln (0.5 mg/2.5 ml) UD IH SCH ×3 (07:48→19:56)
[2018-01-24] MEDS: Budesonide 0.5 mg/2 ml Inhal Susp UD IH SCH ×2 (07:48→19:56)
[2018-01-24] MEDS ORDERED: Levalbuterol 1.25 MG/3 ML Inhal Soln UD IH SCH (08:00)
[2018-01-24] MEDS: Insulin Lispro 1 UNITS/0.01 ML SC SCH ×3 (08:07→17:56)
[2018-01-24] MEDS: Insulin Lispro (humaLOG) LOW Coverage SC SCH ×4 (08:08→22:30)
--- NOTE | 2018-01-24 09:24 | RAD ---
Date of service: 01/24/2018 HISTORY: worsen SOB COMPARISON: 01/21/2018 FINDINGS: LUNGS: No active pulmonary disease. PLEURA: No significant pleural effusion identified, no pneumothorax apparent. CARDIOVASCULAR: Mild vascular congestion right greater than left. The heart is normal in size OSSEOUS STRUCTURES: No significant abnormalities. VISUALIZED UPPER ABDOMEN: Normal. OTHER FINDINGS: None. IMPRESSION: Mild vascular congestion right greater than left. The heart is normal in size
[2018-01-24] MEDS ORDERED: Digoxin 500 mcg/2ml (0.5 mg/2ml) Inj IVP ONE (10:16)
[2018-01-24] MEDS ORDERED: Potassium Chloride 20 mEq ER Tab PO ONE (10:16)
[2018-01-24] MEDS: methIMAzole 5 MG TAB PO SCH (11:18)
--- NOTE | 2018-01-24 11:57 | CP.CCUPN ---
<Dae Subramanian - Last Filed: 01/24/18 13:59> CCU Subjective - Physician Review Events Since Last Encounter (Free Text): Dae Subramanian, PGY-1 ICU Progress Note Patient seen and examined at bedside this morning. She continues to complain of SOB. Pulse overnight 130-150s. Given 2.5mg Verapimil IVP twice overnight to control rate. Blood culture positive for gram negative radha. Per ID, continue azactam for now. Will transfer to tele. Denies CP, abdominal pain and urinary complaints. 12 point ROS noted here, otherwise negative. CCU Objective - Vital Signs / Intake & Output Vital Signs (Last 4 hours): Vital Signs Pulse BP 01/24/18 11:13 140 H 154/100 H Intake and Output (Last 8hrs): Intake & Output 01/23/18 01/24/18 01/24/18 22:59 06:59 14:59 Intake Total 1780 1900 Output Total 1000 950 Balance 780 950 Intake: IV 1180 1650 Cardizem 60 D5 Ns 1100 1200 IVPB 450 Oral 600 250 Output: Urine 1000 950 Urethral (Gill) 1000 950 Other: # Bowel Movements 0 - Physical Exam Head: Positive for: Atraumatic, Normocephalic Extroacular Muscles: Positive for: EOMI Conjunctiva: Positive for: Normal Mouth: Positive for: Dry Pharnyx: Positive for: Normal Nose (External): Positive for: Atraumatic Neck: Positive for: Normal Range of Motion. Negative for: MIDLINE TENDERNESS, JVD, Lymphadenopathy Respiratory/Chest: Positive for: Clear to Auscultation, Good Air Exchange, Wheezes (end expiratory wheezes ). Negative for: Respiratory Distress, Accessory Muscle Use, Rales, Rhonchi Cardiovascular: Positive for: Irregular Rhythm, Peripheal Pulses Present, Tachycardic (current rate of 140-150). Negative for: Murmurs Abdomen: Negative for: Tenderness, Distention, Peritoneal Signs, Rebound, Guarding Back: Positive for: Normal Inspection Upper Extremity: Positive for: Normal Inspection, NORMAL PULSES. Negative for: Cyanosis, Edema Lower Extremity: Positive for: Normal Inspection, NORMAL PULSES. Negative for: Edema, CALF TENDERNESS Neurological: Positive for: GCS=15, Speech Normal, Motor Func Grossly Intact Skin: Positive for: Warm, Dry, Normal Color. Negative for: Rashes Lymphatic: Negative for: Cervical Adenopathy Psychiatric: Positive for: Alert, Oriented x 3, Normal Insight, Normal Concentration - Medications Active Medications: Active Medications Generic Name Dose Route Start Last Admin Trade Name Freq PRN Reason Stop Dose Admin Acetaminophen 650 mg 01/23/18 14:07 Tylenol 325mg Tab PO Q4 PRN Fever >100.4 F Apixaban 5 mg 01/21/18 18:30 01/24/18 11:12 Eliquis PO 5 mg BID [facility] Administration Protocol Budesonide 0.5 mg 01/23/18 20:00 01/24/18 07:48 Pulmicort Respules IH 0.5 mg [id number] [facility] Administration Aztreonam 100 mls @ 100 mls/hr 01/22/18 11:15 01/24/18 05:34 Azactam 1 Gm IVPB 01/29/18 11:16 100 mls/hr Q8 [facility] Administration Protocol Insulin Detemir 40 unit 01/22/18 22:00 01/23/18 22:37 Levemir SC Not Given [facility] Insulin Human Lispro 0 units 01/22/18 07:30 01/24/18 08:08 Humalog Low SC 2 units ACHS [facility] Administration Protocol Insulin Human Lispro 10 units 01/24/18 09:59 Humalog SC AC [facility] Ipratropium Biggers 0.5 mg 01/24/18 08:00 01/24/18 07:48 Atrovent IH 0.5 mg [id number] MIRNA Administration Ipratropium Biggers 0.5 mg 01/24/18 06:59 Atrovent IH Q2 PRN Shortness of Breath Levalbuterol HCl 1.25 mg 01/24/18 06:59 Xopenex IH Q2 PRN Shortness of Breath Levalbuterol HCl 1.25 mg 01/24/18 14:00 Xopenex IH [id number] [facility] Methimazole 5 mg 01/21/18 16:45 01/24/18 11:18 Tapazole PO 5 mg DAILY MIRNA Administration Prednisone 40 mg 01/24/18 10:00 01/24/18 11:18 Prednisone Tab PO 40 mg DAILY MIRNA Administration Propranolol HCl 40 mg 01/24/18 10:15 Inderal PO TID MIRNA Verapamil HCl 40 mg 01/22/18 14:00 01/23/18 17:45 Calan Tab PO 40 mg TID MIRNA Administration Verapamil HCl 2.5 mg 01/22/18 13:05 01/24/18 05:27 Verapamil Inj IVP 2.5 mg Q6H PRN Administration for heart rate >130 - Patient Studies Lab Studies: Lab Studies 01/24/18 01/24/18 01/24/18 Range/Units 07:53 06:00 06:00 WBC (4.5-11.0) 10^3/ul RBC (3.5-6.1) 10^6/uL Hgb (12.0-16.0) g/dL Hct (36.0-48.0) % MCV (80.0-105.0) fl MCH (25.0-35.0) pg MCHC (31.0-37.0) g/dl RDW (11.5-14.5) % Plt Count (120.0-450.0) 10^3/uL MPV (7.0-11.0) fl Gran % (50.0-68.0) % Lymph % (Auto) (22.0-35.0) % [place] % (Auto) (1.0-6.0) % Eos % (Auto) (1.5-5.0) % Baso % (Auto) (0.0-3.0) % Gran # (1.4-6.5) Lymph # (Auto) (1.2-3.4) [place] # (Auto) (0.1-0.6) Eos # (Auto) (0.0-0.7) Baso # (Auto) (0.0-2.0) K/mm3 Sodium 138 (132-148) mmol/L Potassium 3.9 (3.6-5.0) mmol/L Chloride 107 (98-107) mmol/L Carbon Dioxide 22 (21-33) mmol/L Anion Gap 14 (10-20) BUN 8 (7-21) mg/dL Creatinine 0.6 L (0.7-1.2) mg/dl Est GFR ( Amer) > 60 Est GFR (Non-Af Amer) > 60 POC Glucose (mg/dL) 236 H (65-110) mg/dL Random Glucose 179 H (70-110) mg/dL Hemoglobin A1c (4.2-6.5) % Calcium 8.2 L (8.4-10.5) mg/dL Phosphorus 1.9 L (2.5-4.5) mg/dL Magnesium 1.8 (1.7-2.2) mg/dL Total Bilirubin 0.3 (0.2-1.3) mg/dL AST 66 H (14-36) U/L ALT 72 H (7-56) U/L Alkaline Phosphatase 84 (38-126) U/L Total Protein 6.3 (5.8-8.3) g/dL Albumin 3.1 (3.0-4.8) g/dL Globulin 3.2 gm/dL Albumin/Globulin Ratio 1.0 L (1.1-1.8) 01/24/18 01/24/18 01/23/18 Range/Units 06:00 00:36 22:37 WBC 9.1 (4.5-11.0) 10^3/ul RBC 4.21 (3.5-6.1) 10^6/uL Hgb 13.4 (12.0-16.0) g/dL Hct 38.4 (36.0-48.0) % MCV 91.2 (80.0-105.0) fl MCH 31.8 (25.0-35.0) pg MCHC 34.9 (31.0-37.0) g/dl RDW 12.7 (11.5-14.5) % Plt Count 285 (120.0-450.0) 10^3/uL MPV 11.6 H (7.0-11.0) fl Gran % 70.0 H (50.0-68.0) % Lymph % (Auto) 16.1 L (22.0-35.0) % [place] % (Auto) 11.7 H (1.0-6.0) % Eos % (Auto) 1.9 (1.5-5.0) % Baso % (Auto) 0.3 (0.0-3.0) % Gran # 6.40 (1.4-6.5) Lymph # (Auto) 1.5 (1.2-3.4) [place] # (Auto) 1.1 H (0.1-0.6) Eos # (Auto) 0.2 (0.0-0.7) Baso # (Auto) 0.03 (0.0-2.0) K/mm3 Sodium (132-148) mmol/L Potassium (3.6-5.0) mmol/L Chloride (98-107) mmol/L Carbon Dioxide (21-33) mmol/L Anion Gap (10-20) BUN (7-21) mg/dL Creatinine (0.7-1.2) mg/dl Est GFR ( Amer) Est GFR (Non-Af Amer) POC Glucose (mg/dL) 216 H 45 L (65-110) mg/dL Random Glucose (70-110) mg/dL Hemoglobin A1c (4.2-6.5) % Calcium (8.4-10.5) mg/dL Phosphorus (2.5-4.5) mg/dL Magnesium (1.7-2.2) mg/dL Total Bilirubin (0.2-1.3) mg/dL AST (14-36) U/L ALT (7-56) U/L Alkaline Phosphatase (38-126) U/L Total Protein (5.8-8.3) g/dL Albumin (3.0-4.8) g/dL Globulin gm/dL Albumin/Globulin Ratio (1.1-1.8) 01/23/18 01/23/18 01/23/18 Range/Units 16:19 11:11 06:00 WBC (4.5-11.0) 10^3/ul RBC (3.5-6.1) 10^6/uL Hgb (12.0-16.0) g/dL Hct (36.0-48.0) % MCV (80.0-105.0) fl MCH (25.0-35.0) pg MCHC (31.0-37.0) g/dl RDW (11.5-14.5) % Plt Count (120.0-450.0) 10^3/uL MPV (7.0-11.0) fl Gran % (50.0-68.0) % Lymph % (Auto) (22.0-35.0) % [place] % (Auto) (1.0-6.0) % Eos % (Auto) (1.5-5.0) % Baso % (Auto) (0.0-3.0) % Gran # (1.4-6.5) Lymph # (Auto) (1.2-3.4) [place] # (Auto) (0.1-0.6) Eos # (Auto) (0.0-0.7) Baso # (Auto) (0.0-2.0) K/mm3 Sodium (132-148) mmol/L Potassium (3.6-5.0) mmol/L Chloride (98-107) mmol/L Carbon Dioxide (21-33) mmol/L Anion Gap (10-20) BUN (7-21) mg/dL Creatinine (0.7-1.2) mg/dl Est GFR ( Amer) Est GFR (Non-Af Amer) POC Glucose (mg/dL) 127 H 190 H (65-110) mg/dL Random Glucose (70-110) mg/dL Hemoglobin A1c 9.2 H (4.2-6.5) % Calcium (8.4-10.5) mg/dL Phosphorus (2.5-4.5) mg/dL Magnesium (1.7-2.2) mg/dL Total Bilirubin (0.2-1.3) mg/dL AST (14-36) U/L ALT (7-56) U/L Alkaline Phosphatase (38-126) U/L Total Protein (5.8-8.3) g/dL Albumin (3.0-4.8) g/dL Globulin gm/dL Albumin/Globulin Ratio (1.1-1.8) Laboratory Results - last 24 hr 01/23/18 01/23/18 01/23/18 06:00 11:11 16:19 WBC RBC Hgb Hct MCV MCH MCHC RDW Plt Count MPV Gran % Lymph % (Auto) [place] % (Auto) Eos % (Auto) Baso % (Auto) Gran # Lymph # (Auto) [place] # (Auto) Eos # (Auto) Baso # (Auto) Sodium Potassium Chloride Carbon Dioxide Anion Gap BUN Creatinine Est GFR ( Amer) Est GFR (Non-Af Amer) POC Glucose (mg/dL) 190 H 127 H Random Glucose Hemoglobin A1c 9.2 H Calcium Phosphorus Magnesium Total Bilirubin AST ALT Alkaline Phosphatase Total Protein Albumin Globulin Albumin/Globulin Ratio 01/23/18 01/24/18 01/24/18 22:37 00:36 06:00 WBC 9.1 RBC 4.21 Hgb 13.4 Hct 38.4 MCV 91.2 MCH 31.8 MCHC 34.9 RDW 12.7 Plt Count 285 MPV 11.6 H Gran % 70.0 H Lymph % (Auto) 16.1 L [place] % (Auto) 11.7 H Eos % (Auto) 1.9 Baso % (Auto) 0.3 Gran # 6.40 Lymph # (Auto) 1.5 [place] # (Auto) 1.1 H Eos # (Auto) 0.2 Baso # (Auto) 0.03 Sodium Potassium Chloride Carbon Dioxide Anion Gap BUN Creatinine Est GFR ( Amer) Est GFR (Non-Af Amer) POC Glucose (mg/dL) 45 L 216 H Random Glucose Hemoglobin A1c Calcium Phosphorus Magnesium Total Bilirubin AST ALT Alkaline Phosphatase Total Protein Albumin Globulin Albumin/Globulin Ratio 01/24/18 01/24/18 01/24/18 06:00 06:00 07:53 WBC RBC Hgb Hct MCV MCH MCHC RDW Plt Count MPV Gran % Lymph % (Auto) [place] % (Auto) Eos % (Auto) Baso % (Auto) Gran # Lymph # (Auto) [place] # (Auto) Eos # (Auto) Baso # (Auto) Sodium 138 Potassium 3.9 Chloride 107 Carbon Dioxide 22 Anion Gap 14 BUN 8 Creatinine 0.6 L Est GFR ( Amer) > 60 Est GFR (Non-Af Amer) > 60 POC Glucose (mg/dL) 236 H Random Glucose 179 H Hemoglobin A1c Calcium 8.2 L Phosphorus 1.9 L Magnesium 1.8 Total Bilirubin 0.3 AST 66 H ALT 72 H Alkaline Phosphatase 84 Total Protein 6.3 Albumin 3.1 Globulin 3.2 Albumin/Globulin Ratio 1.0 L Fingerstick Blood Sugar Results: 236 Critical Care Progress Note - Nutrition Nutrition: Nutrition Category Date Time Status Regular Diet [DIET] Diets 01/24/18 Lunch Ordered Assessment/Plan - Assessment and Plan (Free Text) Assessment: Assessment: This is a 77 year old female with PMH significant for Afib on Eliquis, CAD, and COPD managed in the ICU for afib with RVR secondary due to possible dehydration , hyperthroidism and sepsis from pyelonephritis. Will transfer to [facility]. Plan: Neuro: -maintain normothermia. -AAO x3, moving extremities spontaneously past midline Cardio: -maintain MAP>65 -will monitor vitals including HR and BP closely. Current HR at 140-150. -taper down cardizem drip as tolerated -on propanolol 40mg TID, verapimil 40mg TID as well as IV cardizem @10ml/hr prn and IVP 2.5mg verapimil prn -cardiology on consult, Dr Modi Lungs: -SaO2 >90% -supplementary O2 PRN -CXR today shows mild vascular congestion R > L, heart normal in size -continue xopenex, pulmicort, atrovent and prednisone Renal: -maintain euvolemia -avoid nephrotoxic agents, hypochloremia -replace electrolytes as needed -BUN/Cr today is 8/0.6 WNL. -CT abd/pelvis 01/21 showed L sided pernephritic stranding. No hydronephrosis, or evidence of obstructing stone. Possible secondary to recently passed stone or pyelonephritis. clinical correlation suggested -U/A on 01/21 showed ketones and small leukocyte esterase Heme: -Hg today is 13.4 WNL -on eliquis 5mg BID Endo: -maintain euglycemia -insulin SC, normal anion gap. -methimazole 5mg PO daily, history of hyperthyroidism, most recent TSH is WNL. ID: -WBC is 9.2 today, down from previous 20.7. Temp of 100.6 overnight, currently afebrile -Per ID, continue azactem for now. May de-escalate in future -ID on consult, Dr. Lyons -GI: -regular diet <Moses Willett - Last Filed: 01/24/18 17:53> CCU Objective - Vital Signs / Intake & Output Intake and Output (Last 8hrs): Intake & Output 01/24/18 01/24/18 01/24/18 06:59 14:59 22:59 Intake Total 1900 Output Total 950 Balance 950 Intake: IV 1650 D5 Ns 1200 IVPB 450 Oral 250 Output: Urine 950 Urethral (Gill) 950 - Medications Active Medications: Active Medications Generic Name Dose Route Start Last Admin Trade Name Freq PRN Reason Stop Dose Admin Acetaminophen 650 mg 01/23/18 14:07 01/24/18 13:18 Tylenol 325mg Tab PO 650 mg Q4 PRN Administration Fever >100.4 F Apixaban 5 mg 01/21/18 18:30 01/24/18 11:12 Eliquis PO 5 mg BID [facility] Administration Protocol Budesonide 0.5 mg 01/23/18 20:00 01/24/18 07:48 Pulmicort Respules IH 0.5 mg [id number] MIRNA Administration Famotidine 40 mg 01/24/18 22:00 Pepcid PO HS [facility] Aztreonam 100 mls @ 100 mls/hr 01/22/18 11:15 01/24/18 05:34 Azactam 1 Gm IVPB 01/29/18 11:16 100 mls/hr Q8 MIRNA Administration Protocol Insulin Detemir 40 unit 01/22/18 22:00 01/23/18 22:37 Levemir SC Not Given [facility] Insulin Human Lispro 0 units 01/22/18 07:30 01/24/18 08:08 Humalog Low SC 2 units ACHS [facility] Administration Protocol Insulin Human Lispro 10 units 01/24/18 09:59 Humalog SC AC [facility] Ipratropium [place]gers 0.5 mg 01/24/18 08:00 01/24/18 12:59 Atrovent IH 0.5 mg [id number] MIRNA Administration Ipratropium [place]gers 0.5 mg 01/24/18 06:59 Atrovent IH Q2 PRN Shortness of Breath Levalbuterol HCl 1.25 mg 01/24/18 06:59 Xopenex IH Q2 PRN Shortness of Breath Levalbuterol HCl 1.25 mg 01/24/18 14:00 01/24/18 12:59 Xopenex IH 1.25 mg [id number] [facility] Administration Methimazole 5 mg 01/21/18 16:45 01/24/18 11:18 Tapazole PO 5 mg DAILY MIRNA Administration Prednisone 40 mg 01/24/18 10:00 01/24/18 11:18 Prednisone Tab PO 40 mg DAILY MIRNA Administration Propranolol HCl 40 mg 01/24/18 10:15 01/24/18 13:10 Inderal PO 40 mg TID MIRNA Administration Verapamil HCl 40 mg 01/22/18 14:00 01/24/18 13:13 Calan Tab PO 40 mg TID MIRNA Administration Verapamil HCl 2.5 mg 01/22/18 13:05 01/24/18 12:48 Verapamil Inj IVP 2.5 mg Q6H PRN Administration for heart rate >130 - Patient Studies Lab Studies: Lab Studies 01/24/18 01/24/18 01/24/18 Range/Units 07:53 06:00 06:00 WBC (4.5-11.0) 10^3/ul RBC (3.5-6.1) 10^6/uL Hgb (12.0-16.0) g/dL Hct (36.0-48.0) % MCV (80.0-105.0) fl MCH (25.0-35.0) pg MCHC (31.0-37.0) g/dl RDW (11.5-14.5) % Plt Count (120.0-450.0) 10^3/uL MPV (7.0-11.0) fl Gran % (50.0-68.0) % Lymph % (Auto) (22.0-35.0) % [place] % (Auto) (1.0-6.0) % Eos % (Auto) (1.5-5.0) % Baso % (Auto) (0.0-3.0) % Gran # (1.4-6.5) Lymph # (Auto) (1.2-3.4) [place] # (Auto) (0.1-0.6) Eos # (Auto) (0.0-0.7) Baso # (Auto) (0.0-2.0) K/mm3 Sodium 138 (132-148) mmol/L Potassium 3.9 (3.6-5.0) mmol/L Chloride 107 (98-107) mmol/L Carbon Dioxide 22 (21-33) mmol/L Anion Gap 14 (10-20) BUN 8 (7-21) mg/dL Creatinine 0.6 L (0.7-1.2) mg/dl Est GFR ( Amer) > 60 Est GFR (Non-Af Amer) > 60 POC Glucose (mg/dL) 236 H (65-110) mg/dL Random Glucose 179 H (70-110) mg/dL Calcium 8.2 L (8.4-10.5) mg/dL Phosphorus 1.9 L (2.5-4.5) mg/dL Magnesium 1.8 (1.7-2.2) mg/dL Total Bilirubin 0.3 (0.2-1.3) mg/dL AST 66 H (14-36) U/L ALT 72 H (7-56) U/L Alkaline Phosphatase 84 (38-126) U/L Total Protein 6.3 (5.8-8.3) g/dL Albumin 3.1 (3.0-4.8) g/dL Globulin 3.2 gm/dL Albumin/Globulin Ratio 1.0 L (1.1-1.8) 01/24/18 01/24/18 01/23/18 Range/Units 06:00 00:36 22:37 WBC 9.1 (4.5-11.0) 10^3/ul RBC 4.21 (3.5-6.1) 10^6/uL Hgb 13.4 (12.0-16.0) g/dL Hct 38.4 (36.0-48.0) % MCV 91.2 (80.0-105.0) fl MCH 31.8 (25.0-35.0) pg MCHC 34.9 (31.0-37.0) g/dl RDW 12.7 (11.5-14.5) % Plt Count 285 (120.0-450.0) 10^3/uL MPV 11.6 H (7.0-11.0) fl Gran % 70.0 H (50.0-68.0) % Lymph % (Auto) 16.1 L (22.0-35.0) % [place] % (Auto) 11.7 H (1.0-6.0) % Eos % (Auto) 1.9 (1.5-5.0) % Baso % (Auto) 0.3 (0.0-3.0) % Gran # 6.40 (1.4-6.5) Lymph # (Auto) 1.5 (1.2-3.4) [place] # (Auto) 1.1 H (0.1-0.6) Eos # (Auto) 0.2 (0.0-0.7) Baso # (Auto) 0.03 (0.0-2.0) K/mm3 Sodium (132-148) mmol/L Potassium (3.6-5.0) mmol/L Chloride (98-107) mmol/L Carbon Dioxide (21-33) mmol/L Anion Gap (10-20) BUN (7-21) mg/dL Creatinine (0.7-1.2) mg/dl Est GFR ( Amer) Est GFR (Non-Af Amer) POC Glucose (mg/dL) 216 H 45 L (65-110) mg/dL Random Glucose (70-110) mg/dL Calcium (8.4-10.5) mg/dL Phosphorus (2.5-4.5) mg/dL Magnesium (1.7-2.2) mg/dL Total Bilirubin (0.2-1.3) mg/dL AST (14-36) U/L ALT (7-56) U/L Alkaline Phosphatase (38-126) U/L Total Protein (5.8-8.3) g/dL Albumin (3.0-4.8) g/dL Globulin gm/dL Albumin/Globulin Ratio (1.1-1.8) Laboratory Results - last 24 hr 01/23/18 01/24/18 01/24/18 22:37 00:36 06:00 WBC 9.1 RBC 4.21 Hgb 13.4 Hct 38.4 MCV 91.2 MCH 31.8 MCHC 34.9 RDW 12.7 Plt Count 285 MPV 11.6 H Gran % 70.0 H Lymph % (Auto) 16.1 L [place] % (Auto) 11.7 H Eos % (Auto) 1.9 Baso % (Auto) 0.3 Gran # 6.40 Lymph # (Auto) 1.5 [place] # (Auto) 1.1 H Eos # (Auto) 0.2 Baso # (Auto) 0.03 Sodium Potassium Chloride Carbon Dioxide Anion Gap BUN Creatinine Est GFR ( Amer) Est GFR (Non-Af Amer) POC Glucose (mg/dL) 45 L 216 H Random Glucose Calcium Phosphorus Magnesium Total Bilirubin AST ALT Alkaline Phosphatase Total Protein Albumin Globulin Albumin/Globulin Ratio 01/24/18 01/24/18 01/24/18 06:00 06:00 07:53 WBC RBC Hgb Hct MCV MCH MCHC RDW Plt Count MPV Gran % Lymph % (Auto) [place] % (Auto) Eos % (Auto) Baso % (Auto) Gran # Lymph # (Auto) [place] # (Auto) Eos # (Auto) Baso # (Auto) Sodium 138 Potassium 3.9 Chloride 107 Carbon Dioxide 22 Anion Gap 14 BUN 8 Creatinine 0.6 L Est GFR ( Amer) > 60 Est GFR (Non-Af Amer) > 60 POC Glucose (mg/dL) 236 H Random Glucose 179 H Calcium 8.2 L Phosphorus 1.9 L Magnesium 1.8 Total Bilirubin 0.3 AST 66 H ALT 72 H Alkaline Phosphatase 84 Total Protein 6.3 Albumin 3.1 Globulin 3.2 Albumin/Globulin Ratio 1.0 L Critical Care Progress Note - Nutrition Nutrition: Nutrition Category Date Time Status Regular Diet [DIET] Diets 01/24/18 Lunch Ordered Attending/Attestation - Attestation I have personally seen and examined this patient.: Yes I have fully participated in the care of the patient.: Yes I have reviewed all pertinent clinical information: Yes Notes (Text): 01/24/18 17:44 77 yo with severe sepsis due to GNR UTI and bacteremia complicated by difficult to control afib with RVR. Co-morbid hyperthyroidism, even though treated ( patient is on methimazole) doesnt help in this situation either. Patient is on CCB, dig and propranolol. Would avoid amiodarone due to thyroid disease. Patient does have COPD which appear to be fairly symptomatic, patient is dyspneic at rest and may contribute to persistent afib. Will continue with steroid taper, ICS, antimuscarinic inhalers and BPAP at night. Clinically patient looks much better. Ok to downgrade to tele
--- NOTE | 2018-01-24 12:04 | CP.PCM.PN ---
<Surekha Thomson - Last Filed: 01/24/18 12:01> Subjective - Date & Time of Evaluation Date of Evaluation: 01/24/18 Time of Evaluation: 07:00 - Subjective Subjective: PGY-[address] Woodruff Pt complained of increase SOB at night. Mild chest pressure. No palpitation/f/c Objective - Vital Signs/Intake and Output Vital Signs (last 24 hours): Temp Pulse Resp BP Pulse Ox 99.3 F 140 H 43 H 154/100 H 95 01/24/18 04:43 01/24/18 11:13 01/24/18 05:50 01/24/18 11:13 01/24/18 05:50 Intake and Output: 01/24/18 01/24/18 06:59 18:59 Intake Total 1900 Output Total 950 Balance 950 - Medications Medications: Current Medications Acetaminophen (Tylenol 325mg Tab) 650 mg PO Q4 PRN PRN Reason: Fever >100.4 F Apixaban (Eliquis) 5 mg PO BID MIRNA PRN Reason: Protocol Last Admin: 01/24/18 11:12 Dose: 5 mg Budesonide (Pulmicort Respules) 0.5 mg IH [id number] [facility] Last Admin: 01/24/18 07:48 Dose: 0.5 mg Aztreonam (Azactam 1 Gm) 100 mls @ 100 mls/hr IVPB Q8 MIRNA PRN Reason: Protocol Stop: 01/29/18 11:16 Last Admin: 01/24/18 05:34 Dose: 100 mls/hr Insulin Detemir (Levemir) 40 unit SC HS [facility] Last Admin: 01/23/18 22:37 Dose: Not Given Insulin Human Lispro (Humalog Low) 0 units SC ACHS MIRNA PRN Reason: Protocol Last Admin: 01/24/18 08:08 Dose: 2 units Insulin Human Lispro (Humalog) 10 units SC AC MIRNA Ipratropium [place] (Atrovent) 0.5 mg IH [id number] [facility] Last Admin: 01/24/18 07:48 Dose: 0.5 mg Ipratropium [place] (Atrovent) 0.5 mg IH Q2 PRN PRN Reason: Shortness of Breath Levalbuterol HCl (Xopenex) 1.25 mg IH Q2 PRN PRN Reason: Shortness of Breath Levalbuterol HCl (Xopenex) 1.25 mg IH [id number] [facility] Methimazole (Tapazole) 5 mg PO DAILY [facility] Last Admin: 01/24/18 11:18 Dose: 5 mg Prednisone (Prednisone Tab) 40 mg PO DAILY [facility] Last Admin: 01/24/18 11:18 Dose: 40 mg Propranolol HCl (Inderal) 40 mg PO TID [facility] Verapamil HCl (Calan Tab) 40 mg PO TID [facility] Last Admin: 01/23/18 17:45 Dose: 40 mg Verapamil HCl (Verapamil Inj) 2.5 mg IVP Q6H PRN PRN Reason: for heart rate >130 Last Admin: 01/24/18 05:27 Dose: 2.5 mg - Labs Labs: 01/24/18 06:00 01/24/18 06:00 PT 18.5 SECONDS (9.4-12.5) H 01/21/18 08:45 INR 1.59 01/21/18 08:45 APTT 28.5 Seconds (25.1-36.5) 01/21/18 08:45 - Constitutional Appears: No Acute Distress - Head Exam Head Exam: ATRAUMATIC, NORMAL INSPECTION, NORMOCEPHALIC - Eye Exam Eye Exam: EOMI, Normal appearance, PERRL. absent: Scleral icterus Pupil Exam: NORMAL ACCOMODATION - ENT Exam ENT Exam: Mucous Membranes Moist - Neck Exam Additional comments: supple - Respiratory Exam Respiratory Exam: Decreased Breath Sounds, Wheezes Additional comments: shallow breathing - Cardiovascular Exam Cardiovascular Exam: Tachycardia, +S1, +S2 - GI/Abdominal Exam GI & Abdominal Exam: Soft, Hypoactive Bowel Sounds. absent: Tenderness - Extremities Exam Extremities Exam: Normal Capillary Refill, Pedal Edema (slight b/l). absent: Calf Tenderness - Back Exam Back Exam: absent: CVA tenderness (L), CVA tenderness (R) - Neurological Exam Neurological Exam: Alert, Awake, Oriented x3 - Psychiatric Exam Psychiatric exam: Normal Affect, Normal Mood - Skin Skin Exam: Dry, Warm Assessment and Plan - Assessment and Plan (Free Text) Plan: Ms Chavis, 77F, PMH of CAD, atrial fibrillation on anticoagulation, COPD, obesity with BMI 31 came in to [facility] complaining of nausea/diarrhea, SOB, easy fatigability fx 3 days. She was also having burning sensation on urination as well as loose bowel movement. She has fever on admission. She has Atrial fibrillation in rapid ventricular response. CT scan of the abdomen and pelvis was done which showed left sided perinephric stranding. She is in the ICU because of uncontrolled atrial fibrillation requiring cardizem gtt, now off the gtt and downgraded to tele. Urine culture (01/21) grew Klebsiella pneumonia. Blood culture (/) grew gram negative radha in aerobic bottle (1/2 bottles). Severe sepsis, with atrial fibrillation with rapid ventricular response, due to gram neg bacteremia and pyelonephritis Gram negative bacteremia, likely from pyelonephritis left sided pyelonephritis. Leukocyosis resolved Dyspnea due to fluid overload Rapid a fib on anticoagulation, likely from sepsis/infection. had ruled out secondary cause from hyperthyroid - slightly improves, still in a fib RVR DM2, A1C 9.2, uncontrolled. Insulin dependent. Hypoglycemic episode resolved. Diarrhea likely due to intraabdominal/retroperitoneal irritation from pyelonephritis - resolved dehydration - resolved mild prerenal azotemia - resolved Hx COPD Echo 2017 (EF 62, RVSP 43) Penicillin and clarithromycin allergy DNR/DNI For sepsis, she was fluid resuscitated in ED and got cipro. Upgraded antibiotics to aztreonam for added pseudomonas coverage, day __3__. Stopped vancomycin due to no sign of gram positive infection. Repeat culture (01/24) to monitor bacteremeia. Tylenol prn for fever. Diarrhea resolved. leukocytosis resolved. Pt was downgraded to telemetry today for improved in a fib RVR. FOr dyspnea with Hx COPD, CXR showed fluid overload on R. Stop IVF. Switch duoneb to xopenex/ipratropium. Add prednison 40 daily. continue budesonide For rapid afib, on eliquis. off cardizem gtt, requiring 1 verapamil pushes. Change PO cardizem to verapamil PO. Change IVP to verapamil. On non-specific BB propanolol (in the setting of hyperthyroid). D/C metoprolol For DM, on levemir 40. reduce Humalog AC for hypoglycemic episode, ISSS. For hyperthryoid, TSH normal PVX - eliquis, pepcid for high risk of GI stress ulcer from sepsis s/r/d/w Dr Woodruff <Tod Woodruff S - Last Filed: 01/24/18 21:27> Objective - Vital Signs/Intake and Output Vital Signs (last 24 hours): Temp Pulse Resp BP Pulse Ox 99.3 F 116 H 43 H 137/100 H 95 01/24/18 04:43 01/24/18 18:00 01/24/18 05:50 01/24/18 17:51 01/24/18 05:50 Intake and Output: 01/24/18 01/25/18 18:59 06:59 Intake Total 660 Output Total 800 Balance -140 - Medications Medications: Current Medications Acetaminophen (Tylenol 325mg Tab) 650 mg PO Q4 PRN PRN Reason: Fever >100.4 F Last Admin: 01/24/18 13:18 Dose: 650 mg Apixaban (Eliquis) 5 mg PO BID MIRNA PRN Reason: Protocol Last Admin: 01/24/18 17:47 Dose: 5 mg Budesonide (Pulmicort Respules) 0.5 mg IH [id number] [facility] Last Admin: 01/24/18 19:56 Dose: 0.5 mg Famotidine (Pepcid) 40 mg PO HS [facility] Aztreonam (Azactam 1 Gm) 100 mls @ 100 mls/hr IVPB Q8 MIRNA PRN Reason: Protocol Stop: 01/29/18 11:16 Last Admin: 01/24/18 14:35 Dose: 100 mls/hr Insulin Detemir (Levemir) 40 unit SC HS [facility] Last Admin: 01/23/18 22:37 Dose: Not Given Insulin Human Lispro (Humalog Low) 0 units SC ACHS [facility] PRN Reason: Protocol Last Admin: 01/24/18 17:58 Dose: 4 units Insulin Human Lispro (Humalog) 10 units SC AC [facility] Last Admin: 01/24/18 17:56 Dose: 10 u Ipratropium [place] (Atrovent) 0.5 mg IH [id number] [facility] Last Admin: 01/24/18 19:56 Dose: 0.5 mg Ipratropium [place] (Atrovent) 0.5 mg IH Q2 PRN PRN Reason: Shortness of Breath Levalbuterol HCl (Xopenex) 1.25 mg IH Q2 PRN PRN Reason: Shortness of Breath Levalbuterol HCl (Xopenex) 1.25 mg IH [id number] [facility] Last Admin: 01/24/18 19:56 Dose: 1.25 mg Methimazole (Tapazole) 5 mg PO DAILY [facility] Last Admin: 01/24/18 11:18 Dose: 5 mg Prednisone (Prednisone Tab) 40 mg PO DAILY [facility] Last Admin: 01/24/18 11:18 Dose: 40 mg Propranolol HCl (Inderal) 40 mg PO TID [facility] Last Admin: 01/24/18 17:51 Dose: 40 mg Verapamil HCl (Calan Tab) 40 mg PO TID [facility] Last Admin: 01/24/18 17:48 Dose: 40 mg Verapamil HCl (Verapamil Inj) 2.5 mg IVP Q6H PRN PRN Reason: for heart rate >130 Last Admin: 01/24/18 12:48 Dose: 2.5 mg - Labs Labs: 01/24/18 06:00 01/24/18 06:00 PT 18.5 SECONDS (9.4-12.5) H 01/21/18 08:45 INR 1.59 01/21/18 08:45 APTT 28.5 Seconds (25.1-36.5) 01/21/18 08:45 Assessment and Plan - Assessment and Plan (Free Text) Plan: Pt seen and examined. I have reviewed the note of the certified medical asst and agree with it. I have discussed the assessment and plan with the resident. I have reviewed the patient's labs and medications. Pt with rapid afib. He is on Aztreonam for pyelonephritis. IVF d/c. On Xopenex.
[2018-01-24] MEDS ORDERED: Digoxin 500 mcg/2ml (0.5 mg/2ml) Inj ONE (12:45)
[2018-01-24] MEDS: Levalbuterol 1.25 MG/3 ML Inhal Soln UD IH SCH ×2 (12:59→19:56)
--- NOTE | 2018-01-24 13:05 | PN ---
Copied To: Gail Modi MD Attending MD: Gail Modi MD DATE: 01/24/2018 REASON FOR THE CONSULTATION AND FOLLOWUP: AFib with rapid ventricular rate, history of chronic atrial fibrillation, complains of mild shortness of breath, low-grade fever, UTI. SUBJECTIVE: The patient denies any chest pain or shortness of breath, but complains of palpitations. OBJECTIVE: GENERAL: Not in apparent distress, but feels occasionally short of breath when the heart rate goes up. VITAL SIGNS: Temperature 99.3, heart rate 114, blood pressure 142/91. HEENT: PERRLA. Extraocular muscles intact. NECK: Supple. No carotid bruits or thyromegaly. CHEST: Clear to auscultation. HEART: S1 and S2 regular. ABDOMEN: Soft. EXTREMITIES: Clubbing and cyanosis negative. LABORATORY DATA: Blood workup as follows: WBC 9.1, hemoglobin 13.1, hematocrit 38.4, platelet count 285. Chemistry shows sodium 130, potassium 3.9, chloride 107, carbon dioxide 22, anion gap of 14, BUN 8, creatinine 0.6. IMPRESSION: A 77-year-old female with past medical history significant for chronic atrial fibrillation, on Eliquis, admitted with urinary tract infection; sepsis; fever, low-grade; obesity; history of coronary artery disease, status post percutaneous transluminal coronary angioplasty in the past, being followed by Dr. Mccain. Cardiac catheterization in 2013 done at [facility], patent stent in left anterior descending, disease in the diagonal, small vessel disease. Admitted with sepsis. Last echo dated 05/18/2017, normal left ventricular function, ejection fraction 60%, right ventricular systolic pressure of 50. RECOMMENDATION: I will increase propranolol to 40 mg three times a day. Continue IV Cardizem. We will give extra dose of digoxin to control the heart rate. Continue Eliquis. The patient has hyperthyroidism that could be the reason to control heart rate as well. In addition, the patient is a little bit septic and had urinary tract infection and low-grade fever. Admitting WBC is 20.7 and the patient had 102 fever. Interim, continue also broad-spectrum antibiotics. We will follow with you. Thank you, Dr. Woodruff, for providing us the opportunity in taking care of the patient, Hawa Chavis. Gail Modi MD [facility] # [id number]
--- NOTE | 2018-01-24 16:45 | CP.PCM.PN ---
Subjective - Date & Time of Evaluation Date of Evaluation: 01/24/18 Time of Evaluation: 08:00 - Subjective Subjective: Comfortable in bed, breathing better, no fevers, not in distress. No chest pain , no abdominal pain, no nausea. Objective - Vital Signs/Intake and Output Vital Signs (last 24 hours): Temp Pulse Resp BP Pulse Ox 99.3 F 143 H 43 H 165/87 H 95 01/24/18 04:43 01/24/18 13:13 01/24/18 05:50 01/24/18 12:48 01/24/18 05:50 Intake and Output: 01/24/18 01/24/18 06:59 18:59 Intake Total 1900 Output Total 950 Balance 950 - Medications Medications: Current Medications Acetaminophen (Tylenol 325mg Tab) 650 mg PO Q4 PRN PRN Reason: Fever >100.4 F Last Admin: 01/24/18 13:18 Dose: 650 mg Apixaban (Eliquis) 5 mg PO BID MIRNA PRN Reason: Protocol Last Admin: 01/24/18 11:12 Dose: 5 mg Budesonide (Pulmicort Respules) 0.5 mg IH [id number] [facility] Last Admin: 01/24/18 07:48 Dose: 0.5 mg Famotidine (Pepcid) 40 mg PO HS [facility] Aztreonam (Azactam 1 Gm) 100 mls @ 100 mls/hr IVPB Q8 MIRNA PRN Reason: Protocol Stop: 01/29/18 11:16 Last Admin: 01/24/18 05:34 Dose: 100 mls/hr Insulin Detemir (Levemir) 40 unit SC HS [facility] Last Admin: 01/23/18 22:37 Dose: Not Given Insulin Human Lispro (Humalog Low) 0 units SC ACHS [facility] PRN Reason: Protocol Last Admin: 01/24/18 08:08 Dose: 2 units Insulin Human Lispro (Humalog) 10 units SC AC MIRNA Ipratropium [place] (Atrovent) 0.5 mg IH [id number] [facility] Last Admin: 01/24/18 12:59 Dose: 0.5 mg Ipratropium [place] (Atrovent) 0.5 mg IH Q2 PRN PRN Reason: Shortness of Breath Levalbuterol HCl (Xopenex) 1.25 mg IH Q2 PRN PRN Reason: Shortness of Breath Levalbuterol HCl (Xopenex) 1.25 mg IH [id number] [facility] Last Admin: 01/24/18 12:59 Dose: 1.25 mg Methimazole (Tapazole) 5 mg PO DAILY [facility] Last Admin: 01/24/18 11:18 Dose: 5 mg Prednisone (Prednisone Tab) 40 mg PO DAILY [facility] Last Admin: 01/24/18 11:18 Dose: 40 mg Propranolol HCl (Inderal) 40 mg PO TID [facility] Last Admin: 01/24/18 13:10 Dose: 40 mg Verapamil HCl (Calan Tab) 40 mg PO TID [facility] Last Admin: 01/24/18 13:13 Dose: 40 mg Verapamil HCl (Verapamil Inj) 2.5 mg IVP Q6H PRN PRN Reason: for heart rate >130 Last Admin: 01/24/18 12:48 Dose: 2.5 mg - Labs Labs: 01/24/18 06:00 01/24/18 06:00 PT 18.5 SECONDS (9.4-12.5) H 01/21/18 08:45 INR 1.59 01/21/18 08:45 APTT 28.5 Seconds (25.1-36.5) 01/21/18 08:45 - Constitutional Appears: Non-toxic, Chronically Ill - Head Exam Head Exam: NORMAL INSPECTION - ENT Exam ENT Exam: Mucous Membranes Moist - Neck Exam Neck Exam: absent: Meningismus - Respiratory Exam Respiratory Exam: Decreased Breath Sounds - Cardiovascular Exam Cardiovascular Exam: +S1, +S2 - GI/Abdominal Exam GI & Abdominal Exam: Soft. absent: Tenderness Assessment and Plan - Assessment and Plan (Free Text) Plan: Assessment Severe sepsis with hypoxic respiratory failure due to left sided pyelonephritis with Klebsiella and gram negative bacilli bacteremia on top of atrial fibrillation with rapid ventricular response atrial fibrillation on anticoagulation COPD obesity with BMI 31 Plan continue Azactam day 3 pending identification and sensitivities of the gram negative bacilli in the blood cx and will repeat blood cx today; reviewed CT A/P will follow up further Cardiology recommendations regarding atrial fibrillation will continue to monitor clinically, trend fever curve
[2018-01-24] MEDS: Insulin Detemir 100 units/ml Vial (Levemir) SC SCH (22:30)
[2018-01-25] MEDS: Ipratropium 0.02% Inhal Soln (0.5 mg/2.5 ml) UD IH SCH ×4 (00:59→20:11)
[2018-01-25] MEDS: Levalbuterol 1.25 MG/3 ML Inhal Soln UD IH SCH ×4 (00:59→20:11)
[2018-01-25] MEDS: Aztreonam 1 Gm in NS 100mL 100 ML IVPB SCH ×3 (06:05→22:46)
[2018-01-25] MEDS: Budesonide 0.5 mg/2 ml Inhal Susp UD IH SCH ×2 (07:14→20:11)
[2018-01-25] MEDS: Insulin Lispro 1 UNITS/0.01 ML SC SCH ×3 (08:20→17:53)
[2018-01-25] MEDS: Insulin Lispro (humaLOG) LOW Coverage SC SCH ×4 (08:20→22:49)
--- NOTE | 2018-01-25 08:29 | CP.PCM.PN ---
Subjective - Date & Time of Evaluation Date of Evaluation: 01/25/18 Time of Evaluation: 06:20 - Subjective Subjective: Awake, alert, no distress,lying in bed Reason for consultation and follow up: Cardiac evaluation of Rapid ventricular atrial fibrillation, history of chronic atrial fibrillation,on Eliquis COPD, coronary artery disease, diabetes mellitus, admitted for urinary tract infection Seen and examined by me and Objective - Vital Signs/Intake and Output Vital Signs (last 24 hours): Temp Pulse Resp BP Pulse Ox 98.4 F 121 H 19 131/80 95 01/25/18 06:00 01/25/18 06:00 01/25/18 06:00 01/25/18 06:00 01/25/18 00:01 Intake and Output: 01/25/18 01/25/18 06:59 18:59 Intake Total 300 Output Total 700 Balance -400 - Medications Medications: Current Medications Acetaminophen (Tylenol 325mg Tab) 650 mg PO Q4 PRN PRN Reason: Fever >100.4 F Last Admin: 01/24/18 13:18 Dose: 650 mg Apixaban (Eliquis) 5 mg PO BID MIRNA PRN Reason: Protocol Last Admin: 01/24/18 17:47 Dose: 5 mg Budesonide (Pulmicort Respules) 0.5 mg IH [id number] [facility] Last Admin: 01/25/18 07:14 Dose: 0.5 mg Famotidine (Pepcid) 40 mg PO HS [facility] Last Admin: 01/24/18 22:32 Dose: 40 mg Aztreonam (Azactam 1 Gm) 100 mls @ 100 mls/hr IVPB Q8 MIRNA PRN Reason: Protocol Stop: 01/29/18 11:16 Last Admin: 01/25/18 06:05 Dose: 100 mls/hr Insulin Detemir (Levemir) 40 unit SC HS [facility] Last Admin: 01/24/18 22:30 Dose: 40 u Insulin Human Lispro (Humalog Low) 0 units SC ACHS [facility] PRN Reason: Protocol Last Admin: 01/25/18 08:20 Dose: 2 units Insulin Human Lispro (Humalog) 10 units SC AC [facility] Last Admin: 01/25/18 08:20 Dose: 10 u Ipratropium [place] (Atrovent) 0.5 mg IH [id number] [facility] Last Admin: 01/25/18 07:13 Dose: 0.5 mg Ipratropium [place] (Atrovent) 0.5 mg IH Q2 PRN PRN Reason: Shortness of Breath Last Admin: 01/25/18 00:58 Dose: 0.5 mg Levalbuterol HCl (Xopenex) 1.25 mg IH Q2 PRN PRN Reason: Shortness of Breath Last Admin: 01/25/18 00:59 Dose: 1.25 mg Levalbuterol HCl (Xopenex) 1.25 mg IH [id number] [facility] Last Admin: 01/25/18 07:13 Dose: 1.25 mg Methimazole (Tapazole) 5 mg PO DAILY [facility] Last Admin: 01/24/18 11:18 Dose: 5 mg Prednisone (Prednisone Tab) 40 mg PO DAILY [facility] Last Admin: 01/24/18 11:18 Dose: 40 mg Propranolol HCl (Inderal) 40 mg PO TID [facility] Last Admin: 01/24/18 17:51 Dose: 40 mg Verapamil HCl (Calan Tab) 40 mg PO TID [facility] Last Admin: 01/24/18 17:48 Dose: 40 mg Verapamil HCl (Verapamil Inj) 2.5 mg IVP Q6H PRN PRN Reason: for heart rate >130 Last Admin: 01/24/18 12:48 Dose: 2.5 mg - Labs Labs: 01/24/18 06:00 01/24/18 06:00 PT 18.5 SECONDS (9.4-12.5) H 01/21/18 08:45 INR 1.59 01/21/18 08:45 APTT 28.5 Seconds (25.1-36.5) 01/21/18 08:45 - Constitutional Appears: No Acute Distress - Eye Exam Eye Exam: Normal appearance - ENT Exam ENT Exam: Mucous Membranes Moist - Respiratory Exam Respiratory Exam: Decreased Breath Sounds, NORMAL BREATHING PATTERN - Cardiovascular Exam Cardiovascular Exam: +S1, +S2 - GI/Abdominal Exam GI & Abdominal Exam: Soft, Normal Bowel Sounds - Exam Additional comments: macias catheter - Extremities Exam Extremities Exam: Normal Capillary Refill - Neurological Exam Neurological Exam: Alert, Awake, Oriented x3 - Psychiatric Exam Psychiatric exam: Normal Affect - Skin Skin Exam: Intact, Warm Assessment and Plan - Assessment and Plan (Free Text) Assessment: A 77 year old female who came in to the ER due to weakness, fatigue and shortness of breath. Had rapid ventricular rate strial fibrillation in ER due to sepsis,IV Lopressor,Diqoxin and Cardizem drip given. transferred to ICU for further management. History of coronary artery disease with stenting, last cardiac cath at [facility] in 2012 showed patent stent in LAD, disease in diagonal, small vessel.ECHO 2017-LVEF 60 % normal ventricular function. history of COPD, diabetes mellitus, chronic Afib on Eliquis,hyperthyroidism, Stabilized heart rate in ICU and now transferred to telemetry. Plan: Heart rate still running at 110-120's Afib Blood pressure stable Mild shortness of breath on exertion On Eliquis 5 mg BID, Inderal 40 mg TID, Calan 40 mg TID Will increase Calan to 80 mg TID Continue current medications Continue current treatment Will follow up Plan and treatment discussed with Dr. Modi
--- NOTE | 2018-01-25 08:30 | CP.PCM.PN ---
Subjective - Date & Time of Evaluation Date of Evaluation: 01/25/18 Objective - Vital Signs/Intake and Output Vital Signs (last 24 hours): Temp Pulse Resp BP Pulse Ox 98.4 F 121 H 19 131/80 95 01/25/18 06:00 01/25/18 06:00 01/25/18 06:00 01/25/18 06:00 01/25/18 00:01 Intake and Output: 01/25/18 01/25/18 06:59 18:59 Intake Total 300 Output Total 700 Balance -400 - Medications Medications: Current Medications Acetaminophen (Tylenol 325mg Tab) 650 mg PO Q4 PRN PRN Reason: Fever >100.4 F Last Admin: 01/24/18 13:18 Dose: 650 mg Apixaban (Eliquis) 5 mg PO BID MIRNA PRN Reason: Protocol Last Admin: 01/24/18 17:47 Dose: 5 mg Budesonide (Pulmicort Respules) 0.5 mg IH [id number] [facility] Last Admin: 01/25/18 07:14 Dose: 0.5 mg Famotidine (Pepcid) 40 mg PO HS [facility] Last Admin: 01/24/18 22:32 Dose: 40 mg Aztreonam (Azactam 1 Gm) 100 mls @ 100 mls/hr IVPB Q8 MIRNA PRN Reason: Protocol Stop: 01/29/18 11:16 Last Admin: 01/25/18 06:05 Dose: 100 mls/hr Insulin Detemir (Levemir) 40 unit SC HS [facility] Last Admin: 01/24/18 22:30 Dose: 40 u Insulin Human Lispro (Humalog Low) 0 units SC ACHS [facility] PRN Reason: Protocol Last Admin: 01/25/18 08:20 Dose: 2 units Insulin Human Lispro (Humalog) 10 units SC AC [facility] Last Admin: 01/25/18 08:20 Dose: 10 u Ipratropium [place] (Atrovent) 0.5 mg IH [id number] [facility] Last Admin: 01/25/18 07:13 Dose: 0.5 mg Ipratropium [place] (Atrovent) 0.5 mg IH Q2 PRN PRN Reason: Shortness of Breath Last Admin: 01/25/18 00:58 Dose: 0.5 mg Levalbuterol HCl (Xopenex) 1.25 mg IH Q2 PRN PRN Reason: Shortness of Breath Last Admin: 01/25/18 00:59 Dose: 1.25 mg Levalbuterol HCl (Xopenex) 1.25 mg IH [id number] [facility] Last Admin: 01/25/18 07:13 Dose: 1.25 mg Methimazole (Tapazole) 5 mg PO DAILY [facility] Last Admin: 01/24/18 11:18 Dose: 5 mg Prednisone (Prednisone Tab) 40 mg PO DAILY [facility] Last Admin: 01/24/18 11:18 Dose: 40 mg Propranolol HCl (Inderal) 40 mg PO TID [facility] Last Admin: 01/24/18 17:51 Dose: 40 mg Verapamil HCl (Calan Tab) 40 mg PO TID [facility] Last Admin: 01/24/18 17:48 Dose: 40 mg Verapamil HCl (Verapamil Inj) 2.5 mg IVP Q6H PRN PRN Reason: for heart rate >130 Last Admin: 01/24/18 12:48 Dose: 2.5 mg - Labs Labs: 01/24/18 06:00 01/24/18 06:00 PT 18.5 SECONDS (9.4-12.5) H 01/21/18 08:45 INR 1.59 01/21/18 08:45 APTT 28.5 Seconds (25.1-36.5) 01/21/18 08:45 Assessment and Plan - Assessment and Plan (Free Text) Assessment: Ms Chavis, 77 F with PMHx of CAD, Afib on Eliquis, COPD, DM, hyperthryodism presented to the ER with weakness, fatigue, SOB, dysuria, and diarrhea for 3 days. patient has not been able to ambulate for last 3-4 days, has had watery, profuse diarrhea, without fever, chills, mucus or blood. (+) dysuria. Denies recent abx use. In the ER noted to be in rapid Afib with RVR, given metoprolol IV, Digoxin IV, and placed on Caridzem drip. CT scan of the abdomen and pelvis was done which showed left sided perinephric stranding. She has sepsis due to pyelonephritis, received fluid resuscitation of 2000cc. received cipro IV. Her sugar was in 380s , was put on insulin gtt, now d/c. Pt developed fever 102 in ICU. ABX upgraded ti aztreiman and vanco. Her HR remains uncontrolled with A fib RVR. she remained at ICU for HR control.
--- NOTE | 2018-01-25 08:41 | CP.PCM.PN ---
<BertoSurekha - Last Filed: 01/25/18 10:55> Subjective - Date & Time of Evaluation Date of Evaluation: 01/25/18 Time of Evaluation: 08:39 - Subjective Subjective: PGY-[address] Woodruff Pt wants dr Estrada and wants to keep the macias for now. She had hx of bladder sling x 2 Objective - Vital Signs/Intake and Output Vital Signs (last 24 hours): Temp Pulse Resp BP Pulse Ox 98.4 F 121 H 19 131/80 95 01/25/18 06:00 01/25/18 06:00 01/25/18 06:00 01/25/18 06:00 01/25/18 00:01 Intake and Output: 01/25/18 01/25/18 06:59 18:59 Intake Total 300 Output Total 700 Balance -400 - Medications Medications: Current Medications Acetaminophen (Tylenol 325mg Tab) 650 mg PO Q4 PRN PRN Reason: Fever >100.4 F Last Admin: 01/24/18 13:18 Dose: 650 mg Apixaban (Eliquis) 5 mg PO BID MIRNA PRN Reason: Protocol Last Admin: 01/24/18 17:47 Dose: 5 mg Budesonide (Pulmicort Respules) 0.5 mg IH [id number] [facility] Last Admin: 01/25/18 07:14 Dose: 0.5 mg Famotidine (Pepcid) 40 mg PO HS [facility] Last Admin: 01/24/18 22:32 Dose: 40 mg Aztreonam (Azactam 1 Gm) 100 mls @ 100 mls/hr IVPB Q8 MIRNA PRN Reason: Protocol Stop: 01/29/18 11:16 Last Admin: 01/25/18 06:05 Dose: 100 mls/hr Insulin Detemir (Levemir) 40 unit SC HS [facility] Last Admin: 01/24/18 22:30 Dose: 40 u Insulin Human Lispro (Humalog Low) 0 units SC ACHS [facility] PRN Reason: Protocol Last Admin: 01/25/18 08:20 Dose: 2 units Insulin Human Lispro (Humalog) 10 units SC AC [facility] Last Admin: 01/25/18 08:20 Dose: 10 u Ipratropium [place] (Atrovent) 0.5 mg IH [id number] [facility] Last Admin: 01/25/18 07:13 Dose: 0.5 mg Ipratropium [place] (Atrovent) 0.5 mg IH Q2 PRN PRN Reason: Shortness of Breath Last Admin: 01/25/18 00:58 Dose: 0.5 mg Levalbuterol HCl (Xopenex) 1.25 mg IH Q2 PRN PRN Reason: Shortness of Breath Last Admin: 01/25/18 00:59 Dose: 1.25 mg Levalbuterol HCl (Xopenex) 1.25 mg IH [id number] [facility] Last Admin: 01/25/18 07:13 Dose: 1.25 mg Methimazole (Tapazole) 5 mg PO DAILY [facility] Last Admin: 01/24/18 11:18 Dose: 5 mg Prednisone (Prednisone Tab) 40 mg PO DAILY [facility] Last Admin: 01/24/18 11:18 Dose: 40 mg Propranolol HCl (Inderal) 40 mg PO TID [facility] Last Admin: 01/24/18 17:51 Dose: 40 mg Verapamil HCl (Calan Tab) 40 mg PO TID [facility] Last Admin: 01/24/18 17:48 Dose: 40 mg Verapamil HCl (Verapamil Inj) 2.5 mg IVP Q6H PRN PRN Reason: for heart rate >130 Last Admin: 01/24/18 12:48 Dose: 2.5 mg - Labs Labs: 01/24/18 06:00 01/24/18 06:00 PT 18.5 SECONDS (9.4-12.5) H 01/21/18 08:45 INR 1.59 01/21/18 08:45 APTT 28.5 Seconds (25.1-36.5) 01/21/18 08:45 - Constitutional Appears: No Acute Distress - Head Exam Head Exam: ATRAUMATIC, NORMAL INSPECTION, NORMOCEPHALIC - Eye Exam Eye Exam: EOMI, Normal appearance, PERRL - ENT Exam ENT Exam: Mucous Membranes Moist - Neck Exam Additional comments: supple - Respiratory Exam Respiratory Exam: Decreased Breath Sounds (bl lung bases), Clear to Ausculation Bilateral. absent: Rales, Rhonchi, Wheezes - Cardiovascular Exam Cardiovascular Exam: Tachycardia, Irregular Rhythm, +S1, +S2 - GI/Abdominal Exam GI & Abdominal Exam: Soft, Normal Bowel Sounds. absent: Guarding, Rigid, Tenderness - Extremities Exam Extremities Exam: Pedal Edema (slight b/l). absent: Calf Tenderness Additional comments: colleen (day #4) - Back Exam Back Exam: absent: CVA tenderness (L), CVA tenderness (R) - Neurological Exam Neurological Exam: Alert, Awake, Oriented x3 - Psychiatric Exam Psychiatric exam: Normal Affect, Normal Mood - Skin Skin Exam: Dry, Normal Color Assessment and Plan - Assessment and Plan (Free Text) Plan: Ms Chavis, 77F, PMH of CAD, atrial fibrillation on anticoagulation, COPD, obesity with BMI 31 came in to [facility] complaining of nausea/diarrhea, SOB, easy fatigability fx 3 days. She was also having burning sensation on urination as well as loose bowel movement. She has fever and leukocytosis on admission. She has Atrial fibrillation in rapid ventricular response. CT scan of the abdomen and pelvis was done which showed left sided perinephric stranding. She is in the ICU because of uncontrolled atrial fibrillation requiring cardizem gtt, now off the gtt and downgraded to telemetry. Urine culture (01/21) grew Klebsiella pneumonia. Blood culture (01/21) grew gram negative radha in aerobic bottle (1/2 bottles). She is on aztreonam and pending repeat culture Severe sepsis, with atrial fibrillation with rapid ventricular response, due to gram neg bacteremia and pyelonephritis Gram negative bacteremia, likely from pyelonephritis left sided pyelonephritis. Rapid a fib on anticoagulation, likely from sepsis/infection. had ruled out secondary cause from hyperthyroid - improves, still in a fib RVR DM2, A1C 9.2, uncontrolled. Insulin dependent. Hypoglycemic episode resolved. Worsening of urinary incontinence, likely due to pyelonephritis Dyspnea due to fluid overload - resolved after D/C IVF Diarrhea likely due to intraabdominal/retroperitoneal irritation from pyelonephritis - resolved dehydration - resolved mild prerenal azotemia - resolved Hx COPD Echo 2018 (EF 62, RVSP 43) Penicillin and clarithromycin allergy DNR/DNI For sepsis, she was fluid resuscitated in ED and got cipro. Upgraded antibiotics to aztreonam for added pseudomonas coverage, day __4__. Stopped vancomycin due to no sign of gram positive infection. Repeat culture (01/24) to monitor bacteremeia. Tylenol prn for fever. Diarrhea resolved. Fever and leukocytosis resolved. Pt was downgraded to telemetry for improved in a fib RVR. FOr dyspnea with Hx COPD, CXR showed fluid overload on R. Stop IVF. Switch duoneb to xopenex/ipratropium. Taper prednisone to 30 daily tomorrow. continue budesonide For rapid afib, on eliquis. off cardizem gtt, verapamil IVP as needed if HR > 130. Change PO cardizem to verapamil PO. Change IVP to verapamil. On non- specific BB propanolol (in the setting of hyperthyroid). D/C metoprolol For urinary incontinent, macias day #4. Pt is not ready to dc macias because of worsened UI. Urol on consult. Plan to d/c macias tomorrow, voiding tiral, and switch to purewic tomorrow. For DM, on levemir 40. reduce Humalog AC for hypoglycemic episode, ISSS. For hyperthryoid, TSH normal PVX - eliquis, pepcid for high risk of GI stress ulcer from sepsis Discharge planning: pending repeat blood culture. May need PICC line. Pending PT eval s/r/d/w Dr Woodruff <Tod Woodruff S - Last Filed: 01/25/18 19:42> Objective - Vital Signs/Intake and Output Vital Signs (last 24 hours): Temp Pulse Resp BP Pulse Ox 97.8 F 104 H 18 132/74 95 01/25/18 17:14 01/25/18 17:52 01/25/18 17:14 01/25/18 17:52 01/25/18 00:01 Intake and Output: 01/25/18 01/26/18 18:59 06:59 Intake Total 420 Output Total 500 Balance -80 - Medications Medications: Current Medications Acetaminophen (Tylenol 325mg Tab) 650 mg PO Q4 PRN PRN Reason: Fever >100.4 F Last Admin: 01/24/18 13:18 Dose: 650 mg Apixaban (Eliquis) 5 mg PO BID MIRNA PRN Reason: Protocol Last Admin: 01/25/18 17:51 Dose: 5 mg Budesonide (Pulmicort Respules) 0.5 mg IH [id number] [facility] Last Admin: 01/25/18 07:14 Dose: 0.5 mg Famotidine (Pepcid) 40 mg PO HS [facility] Last Admin: 01/24/18 22:32 Dose: 40 mg Aztreonam (Azactam 1 Gm) 100 mls @ 100 mls/hr IVPB Q8 [facility] PRN Reason: Protocol Stop: 01/29/18 11:16 Last Admin: 01/25/18 14:47 Dose: 100 mls/hr Insulin Detemir (Levemir) 40 unit SC HS [facility] Last Admin: 01/24/18 22:30 Dose: 40 u Insulin Human Lispro (Humalog Low) 0 units SC ACHS [facility] PRN Reason: Protocol Last Admin: 01/25/18 17:52 Dose: 2 units Insulin Human Lispro (Humalog) 12 units SC AC [facility] Last Admin: 01/25/18 17:53 Dose: 12 unit Ipratropium [place] (Atrovent) 0.5 mg IH [id number] [facility] Last Admin: 01/25/18 13:22 Dose: 0.5 mg Levalbuterol HCl (Xopenex) 1.25 mg IH Q2 PRN PRN Reason: Shortness of Breath Last Admin: 01/25/18 00:59 Dose: 1.25 mg Levalbuterol HCl (Xopenex) 1.25 mg IH [id number] [facility] Last Admin: 01/25/18 13:22 Dose: 1.25 mg Methimazole (Tapazole) 5 mg PO DAILY [facility] Last Admin: 01/25/18 09:10 Dose: 5 mg Potassium Phos/Sodium Phos (Neutra-Phos) 2 pkt PO BID [facility] Stop: 01/28/18 10:01 Last Admin: 01/25/18 17:49 Dose: 2 pkt Prednisone (Prednisone Tab) 30 mg PO DAILY [facility] Propranolol HCl (Inderal) 40 mg PO TID [facility] Last Admin: 01/25/18 17:52 Dose: 40 mg Verapamil HCl (Verapamil Inj) 2.5 mg IVP Q6H PRN PRN Reason: for heart rate >130 Last Admin: 01/25/18 12:48 Dose: 2.5 mg Verapamil HCl (Calan Tab) 80 mg PO TID [facility] Last Admin: 01/25/18 17:50 Dose: 80 mg - Labs Labs: 01/25/18 09:20 01/25/18 09:20 PT 18.5 SECONDS (9.4-12.5) H 08/18 08:45 INR 1.59 01/21/18 08:45 APTT 28.5 Seconds (25.1-36.5) 01/21/18 08:45
[2018-01-25] MEDS: methIMAzole 5 MG TAB PO SCH (09:10)
[2018-01-25 09:33] LABS: BASO # 0.02 K/mm3 (0.0-2.0); BASO % 0.2 % (0.0-3.0); EOS % 0.5 % (1.5-5.0); GRAN # 5.48 (1.4-6.5); GRAN % 67.7 % (50.0-68.0); HEMOGLOBIN 13.5 g/dL (12.0-16.0); LYMPH % 25.1 % (22.0-35.0); MEAN CELL VOLUME 92.3 fl (80.0-105.0); MEAN CORPUSCULAR HEMOGLOBIN 31.5 pg (25.0-35.0); MEAN CORPUSCULAR HGB CONC 34.2 g/dl (31.0-37.0); MEAN PLATELET VOLUME 11.5 fl (7.0-11.0); MONO # 0.5 (0.1-0.6); MONO % 6.5 % (1.0-6.0); RBC 4.28 10^6/uL (3.5-6.1); RED CELL DISTRIBUTION WIDTH 12.8 % (11.5-14.5); WHITE BLOOD COUNT 8.1 10^3/ul (4.5-11.0)
[2018-01-25 09:53] LABS: ALB/GLOB RATIO 1.1 (1.1-1.8); ALBUMIN 3.4 g/dL (3.0-4.8); ALT/SGPT 53 U/L (7-56); AST/SGOT 25 U/L (14-36); BLOOD UREA NITROGEN 12 mg/dL (7-21); CALCIUM 9.4 mg/dL (8.4-10.5); GFR AFRICAN-AMERICAN > 60; GFR NON-AFRICAN AMERICAN > 60
[2018-01-25] MEDS: Potassium & Sodium Phosphate PO SCH ×2 (10:35→17:49)
--- NOTE | 2018-01-25 12:01 | CP.PCM.PN ---
Subjective - Date & Time of Evaluation Date of Evaluation: 01/25/18 Time of Evaluation: 09:05 - Subjective Subjective: No more fevers, no dysuria or hematuria, still with occasional chest palpitations but more comfortable in bed compared to previous days. No diarrhea or nausea. Objective - Vital Signs/Intake and Output Vital Signs (last 24 hours): Temp Pulse Resp BP Pulse Ox 98.4 F 121 H 19 131/80 95 01/25/18 06:00 01/25/18 06:00 01/25/18 06:00 01/25/18 06:00 01/25/18 00:01 Intake and Output: 01/25/18 01/25/18 06:59 18:59 Intake Total 300 Output Total 700 Balance -400 - Medications Medications: Current Medications Acetaminophen (Tylenol 325mg Tab) 650 mg PO Q4 PRN PRN Reason: Fever >100.4 F Last Admin: 01/24/18 13:18 Dose: 650 mg Apixaban (Eliquis) 5 mg PO BID MIRNA PRN Reason: Protocol Last Admin: 01/24/18 17:47 Dose: 5 mg Budesonide (Pulmicort Respules) 0.5 mg IH [id number] [facility] Last Admin: 01/24/18 19:56 Dose: 0.5 mg Famotidine (Pepcid) 40 mg PO HS [facility] Last Admin: 01/24/18 22:32 Dose: 40 mg Aztreonam (Azactam 1 Gm) 100 mls @ 100 mls/hr IVPB Q8 MIRNA PRN Reason: Protocol Stop: 01/29/18 11:16 Last Admin: 01/25/18 06:05 Dose: 100 mls/hr Insulin Detemir (Levemir) 40 unit SC HS [facility] Last Admin: 01/24/18 22:30 Dose: 40 u Insulin Human Lispro (Humalog Low) 0 units SC ACHS [facility] PRN Reason: Protocol Last Admin: 01/24/18 22:30 Dose: 2 units Insulin Human Lispro (Humalog) 10 units SC AC [facility] Last Admin: 01/24/18 17:56 Dose: 10 u Ipratropium [place] (Atrovent) 0.5 mg IH [id number] [facility] Last Admin: 01/25/18 00:59 Dose: Not Given Ipratropium [place] (Atrovent) 0.5 mg IH Q2 PRN PRN Reason: Shortness of Breath Last Admin: 01/25/18 00:58 Dose: 0.5 mg Levalbuterol HCl (Xopenex) 1.25 mg IH Q2 PRN PRN Reason: Shortness of Breath Last Admin: 01/25/18 00:59 Dose: 1.25 mg Levalbuterol HCl (Xopenex) 1.25 mg IH [id number] [facility] Last Admin: 01/25/18 00:59 Dose: Not Given Methimazole (Tapazole) 5 mg PO DAILY [facility] Last Admin: 01/24/18 11:18 Dose: 5 mg Prednisone (Prednisone Tab) 40 mg PO DAILY [facility] Last Admin: 01/24/18 11:18 Dose: 40 mg Propranolol HCl (Inderal) 40 mg PO TID [facility] Last Admin: 01/24/18 17:51 Dose: 40 mg Verapamil HCl (Calan Tab) 40 mg PO TID [facility] Last Admin: 01/24/18 17:48 Dose: 40 mg Verapamil HCl (Verapamil Inj) 2.5 mg IVP Q6H PRN PRN Reason: for heart rate >130 Last Admin: 01/24/18 12:48 Dose: 2.5 mg - Labs Labs: 01/24/18 06:00 01/24/18 06:00 PT 18.5 SECONDS (9.4-12.5) H 01/21/18 08:45 INR 1.59 01/21/18 08:45 APTT 28.5 Seconds (25.1-36.5) 01/21/18 08:45 - Constitutional Appears: Non-toxic, Chronically Ill - Head Exam Head Exam: NORMAL INSPECTION - ENT Exam ENT Exam: Mucous Membranes Moist - Neck Exam Neck Exam: absent: Meningismus - Respiratory Exam Respiratory Exam: Decreased Breath Sounds - Cardiovascular Exam Cardiovascular Exam: +S1, +S2 - GI/Abdominal Exam GI & Abdominal Exam: Soft. absent: Tenderness Assessment and Plan - Assessment and Plan (Free Text) Plan: Assessment Severe sepsis with hypoxic respiratory failure due to left sided pyelonephritis with Klebsiella and gram negative bacilli bacteremia on top of atrial fibrillation with rapid ventricular response atrial fibrillation on anticoagulation COPD obesity with BMI 31 Plan continue Azactam day 4 pending identification and sensitivities of the gram negative bacilli in the blood cx and follow up repeat blood cx done yesterday; reviewed CT A/P will follow up further Cardiology recommendations regarding atrial fibrillation will continue to monitor clinically
[2018-01-25] MEDS ORDERED: Digoxin 500 mcg/2ml (0.5 mg/2ml) Inj IVP ONE (15:15)
[2018-01-25] MEDS: Insulin Detemir 100 units/ml Vial (Levemir) SC SCH (22:47)
[2018-01-26] MEDS: Levalbuterol 1.25 MG/3 ML Inhal Soln UD IH SCH ×4 (01:19→19:56)
[2018-01-26] MEDS: Ipratropium 0.02% Inhal Soln (0.5 mg/2.5 ml) UD IH SCH ×4 (01:19→19:55)
[2018-01-26 06:18] LABS: BASO # 0.01 K/mm3 (0.0-2.0); BASO % 0.1 % (0.0-3.0); EOS % 0.4 % (1.5-5.0); GRAN # 5.27 (1.4-6.5); GRAN % 63.2 % (50.0-68.0); HEMOGLOBIN 12.5 g/dL (12.0-16.0); LYMPH # 2.1 (1.2-3.4); LYMPH % 24.8 % (22.0-35.0); MEAN CELL VOLUME 91.7 fl (80.0-105.0); MEAN CORPUSCULAR HEMOGLOBIN 31.6 pg (25.0-35.0); MEAN CORPUSCULAR HGB CONC 34.4 g/dl (31.0-37.0); MEAN PLATELET VOLUME 11.2 fl (7.0-11.0); MONO % 11.5 % (1.0-6.0); RBC 3.96 10^6/uL (3.5-6.1); RED CELL DISTRIBUTION WIDTH 12.7 % (11.5-14.5); WHITE BLOOD COUNT 8.3 10^3/ul (4.5-11.0)
--- NOTE | 2018-01-26 07:33 | CP.PCM.PN ---
Subjective - Date & Time of Evaluation Date of Evaluation: 01/26/18 Time of Evaluation: 06:35 - Subjective Subjective: lying in bed, Awake, alert, no distress Reason for consultation and follow up: Cardiac evaluation of Rapid ventricular atrial fibrillation, history of chronic atrial fibrillation,on Eliquis COPD, coronary artery disease, diabetes mellitus, admitted for urinary tract infection Seen and examined by me and Objective - Vital Signs/Intake and Output Vital Signs (last 24 hours): Temp Pulse Resp BP Pulse Ox 98.9 F 59 L 20 156/87 H 95 01/26/18 06:00 01/26/18 06:00 01/26/18 06:00 01/26/18 06:00 01/25/18 00:01 Intake and Output: 01/26/18 01/26/18 06:59 18:59 Intake Total 200 120 Output Total 1600 Balance 200 -1480 - Medications Medications: Current Medications Acetaminophen (Tylenol 325mg Tab) 650 mg PO Q4 PRN PRN Reason: Fever >100.4 F Last Admin: 01/24/18 13:18 Dose: 650 mg Apixaban (Eliquis) 5 mg PO BID MIRNA PRN Reason: Protocol Last Admin: 01/25/18 17:51 Dose: 5 mg Budesonide (Pulmicort Respules) 0.5 mg IH [id number] [facility] Last Admin: 01/25/18 20:11 Dose: 0.5 mg Famotidine (Pepcid) 40 mg PO HS [facility] Last Admin: 01/25/18 22:46 Dose: 40 mg Aztreonam (Azactam 1 Gm) 100 mls @ 100 mls/hr IVPB Q8 MIRNA PRN Reason: Protocol Stop: 01/29/18 11:16 Last Admin: 01/25/18 22:46 Dose: 100 mls/hr Insulin Detemir (Levemir) 40 unit SC HS [facility] Last Admin: 01/25/18 22:47 Dose: 40 u Insulin Human Lispro (Humalog Low) 0 units SC ACHS [facility] PRN Reason: Protocol Last Admin: 01/25/18 22:49 Dose: Not Given Insulin Human Lispro (Humalog) 12 units SC AC [facility] Last Admin: 01/25/18 17:53 Dose: 12 unit Ipratropium [place] (Atrovent) 0.5 mg IH [id number] [facility] Last Admin: 01/26/18 01:19 Dose: 0.5 mg Levalbuterol HCl (Xopenex) 1.25 mg IH Q2 PRN PRN Reason: Shortness of Breath Last Admin: 01/25/18 00:59 Dose: 1.25 mg Levalbuterol HCl (Xopenex) 1.25 mg IH [id number] [facility] Last Admin: 01/26/18 01:19 Dose: 1.25 mg Methimazole (Tapazole) 5 mg PO DAILY [facility] Last Admin: 01/25/18 09:10 Dose: 5 mg Potassium Phos/Sodium Phos (Neutra-Phos) 2 pkt PO BID [facility] Stop: 01/28/18 10:01 Last Admin: 01/25/18 17:49 Dose: 2 pkt Prednisone (Prednisone Tab) 30 mg PO DAILY [facility] Propranolol HCl (Inderal) 40 mg PO TID [facility] Last Admin: 01/25/18 17:52 Dose: 40 mg Verapamil HCl (Verapamil Inj) 2.5 mg IVP Q6H PRN PRN Reason: for heart rate >130 Last Admin: 01/25/18 12:48 Dose: 2.5 mg Verapamil HCl (Calan Tab) 80 mg PO TID [facility] Last Admin: 01/25/18 17:50 Dose: 80 mg - Labs Labs: 01/26/18 05:30 01/25/18 09:20 PT 18.5 SECONDS (9.4-12.5) H 01/21/18 08:45 INR 1.59 01/21/18 08:45 APTT 28.5 Seconds (25.1-36.5) 01/21/18 08:45 - Constitutional Appears: No Acute Distress - Eye Exam Eye Exam: Normal appearance - ENT Exam ENT Exam: Mucous Membranes Moist - Respiratory Exam Respiratory Exam: Decreased Breath Sounds, NORMAL BREATHING PATTERN - Cardiovascular Exam Cardiovascular Exam: Irregular Rhythm, +S1, +S2 Additional comments: Afib 100-110's telemetry - GI/Abdominal Exam GI & Abdominal Exam: Soft, Normal Bowel Sounds - Exam Additional comments: macias catheter clear yellow urine - Neurological Exam Neurological Exam: Alert, Awake, Oriented x3 - Psychiatric Exam Psychiatric exam: Normal Affect - Skin Skin Exam: Dry, Warm Assessment and Plan - Assessment and Plan (Free Text) Assessment: A 77 year old female who came in to the ER due to weakness, fatigue and shortness of breath. Had rapid ventricular rate strial fibrillation in ER due to sepsis,IV Lopressor,Diqoxin and Cardizem drip given. transferred to ICU for further management. History of coronary artery disease with stenting, [place] cardiac [place] [facility] [place] showed patent stent in LAD, disease in diagonal, small vessel.ECHO 2017-LVEF 60 % normal ventricular function. history of COPD, diabetes mellitus, chronic Afib on Eliquis,hyperthyroidism, Stabilized heart rate in ICU and now transferred to telemetry. Plan: Increased Calan dose to 80 mg TID yesterday Heart rate better at 70 to 100's Afib Patient comfortable, will keep at that dose Blood pressure stable On Eliquis 5 mg BID, Inderal 40 mg TID, Calan 80 mg TID ID on consult, Continue current medications Continue current treatment Will follow up Plan and treatment discussed with Dr. Modi
[2018-01-26 07:43] LABS: ALB/GLOB RATIO 1.1 (1.1-1.8); ALBUMIN 3.2 g/dL (3.0-4.8); ALT/SGPT 39 U/L (7-56); AST/SGOT 33 U/L (14-36); BLOOD UREA NITROGEN 16 mg/dL (7-21); CALCIUM 9.4 mg/dL (8.4-10.5); GFR AFRICAN-AMERICAN > 60; GFR NON-AFRICAN AMERICAN > 60
[2018-01-26] MEDS: Budesonide 0.5 mg/2 ml Inhal Susp UD IH SCH ×2 (07:48→19:55)
[2018-01-26] MEDS: Insulin Lispro (humaLOG) LOW Coverage SC SCH ×4 (08:47→22:15)
[2018-01-26] MEDS: Insulin Lispro 1 UNITS/0.01 ML SC SCH ×3 (09:03→17:11)
[2018-01-26] MEDS: Potassium & Sodium Phosphate PO SCH ×2 (09:03→17:12)
[2018-01-26] MEDS: methIMAzole 5 MG TAB PO SCH (09:15)
--- NOTE | 2018-01-26 12:03 | CP.PCM.PN ---
Addendum entered and electronically signed by Surekha Thomson DO 01/26/18 17:19 : EKG: QT 450 The positive Blood culture (8/5) has the same result as the urine culture. Per ID, if QT is not prolong and both blood/urine culture match, may switch patient to PO cipro Original Note: <Surekha Thomson - Last Filed: 01/26/18 12:12> Subjective - Date & Time of Evaluation Date of Evaluation: 01/26/18 Time of Evaluation: 07:00 - Subjective Subjective: PGY-[address] Woodruff 2 second pause yesterday. HR improves to 100s, at night edith to 43-60. Asymptomatic. Switch macias to purewick. No acute complain Objective - Vital Signs/Intake and Output Vital Signs (last 24 hours): Temp Pulse Resp BP Pulse Ox 98.3 F 80 18 133/69 95 01/26/18 11:36 01/26/18 11:36 01/26/18 11:36 01/26/18 11:36 01/25/18 00:01 Intake and Output: 01/26/18 01/26/18 06:59 18:59 Intake Total 200 120 Output Total 1600 Balance 200 -1480 - Medications Medications: Current Medications Acetaminophen (Tylenol 325mg Tab) 650 mg PO Q4 PRN PRN Reason: Fever >100.4 F Last Admin: 01/24/18 13:18 Dose: 650 mg Apixaban (Eliquis) 5 mg PO BID [facility] PRN Reason: Protocol Last Admin: 01/26/18 09:04 Dose: 5 mg Budesonide (Pulmicort Respules) 0.5 mg IH [id number] [facility] Last Admin: 01/26/18 07:48 Dose: 0.5 mg Famotidine (Pepcid) 40 mg PO HS [facility] Last Admin: 01/25/18 22:46 Dose: 40 mg Aztreonam (Azactam 1 Gm) 100 mls @ 100 mls/hr IVPB Q8 [facility] PRN Reason: Protocol Stop: 01/29/18 11:16 Last Admin: 01/25/18 22:46 Dose: 100 mls/hr Insulin Detemir (Levemir) 40 unit SC HS [facility] Last Admin: 01/25/18 22:47 Dose: 40 u Insulin Human Lispro (Humalog Low) 0 units SC ACHS [facility] PRN Reason: Protocol Last Admin: 01/26/18 11:42 Dose: 3 units Insulin Human Lispro (Humalog) 12 units SC AC [facility] Last Admin: 01/26/18 11:43 Dose: 12 unit Ipratropium [place] (Atrovent) 0.5 mg IH [id number] [facility] Last Admin: 01/26/18 07:48 Dose: 0.5 mg Levalbuterol HCl (Xopenex) 1.25 mg IH Q2 PRN PRN Reason: Shortness of Breath Last Admin: 01/25/18 00:59 Dose: 1.25 mg Levalbuterol HCl (Xopenex) 1.25 mg IH [id number] [facility] Last Admin: 01/26/18 07:48 Dose: 1.25 mg Methimazole (Tapazole) 5 mg PO DAILY [facility] Last Admin: 01/26/18 09:15 Dose: 5 mg Potassium Phos/Sodium Phos (Neutra-Phos) 2 pkt PO BID [facility] Stop: 01/28/18 10:01 Last Admin: 01/26/18 09:03 Dose: 2 pkt Prednisone (Prednisone Tab) 30 mg PO DAILY [facility] Last Admin: 01/26/18 09:05 Dose: 30 mg Propranolol HCl (Inderal) 40 mg PO TID [facility] Last Admin: 01/26/18 09:04 Dose: 40 mg Verapamil HCl (Verapamil Inj) 2.5 mg IVP Q6H PRN PRN Reason: for heart rate >130 Last Admin: 01/25/18 12:48 Dose: 2.5 mg Verapamil HCl (Calan Tab) 80 mg PO TID [facility] Last Admin: 01/26/18 09:03 Dose: 80 mg - Labs Labs: 01/26/18 05:30 01/26/18 05:30 PT 18.5 SECONDS (9.4-12.5) H 01/21/18 08:45 INR 1.59 01/21/18 08:45 APTT 28.5 Seconds (25.1-36.5) 01/21/18 08:45 - Constitutional Appears: No Acute Distress - Head Exam Head Exam: ATRAUMATIC, NORMAL INSPECTION, NORMOCEPHALIC - Eye Exam Eye Exam: EOMI, Normal appearance, PERRL Pupil Exam: NORMAL ACCOMODATION - ENT Exam ENT Exam: Mucous Membranes Moist - Neck Exam Additional comments: supple - Respiratory Exam Respiratory Exam: Clear to Ausculation Bilateral. absent: Rhonchi, Wheezes, Respiratory Distress - Cardiovascular Exam Cardiovascular Exam: Irregular Rhythm, +S1, +S2 - GI/Abdominal Exam GI & Abdominal Exam: Soft, Normal Bowel Sounds. absent: Guarding, Rigid, Tenderness - Extremities Exam Extremities Exam: Normal Capillary Refill, Pedal Edema (mild). absent: Calf Tenderness - Back Exam Back Exam: absent: CVA tenderness (L), CVA tenderness (R) - Neurological Exam Neurological Exam: Alert, Awake, Oriented x3 - Psychiatric Exam Psychiatric exam: Normal Affect, Normal Mood - Skin Skin Exam: Dry, Warm Assessment and Plan - Assessment and Plan (Free Text) Plan: Ms Chavis, 77F, PMH of CAD, atrial fibrillation on anticoagulation, COPD, obesity with BMI 31 came in [place] [facility] [place] of nausea/diarrhea, SOB, easy fatigability fx 3 days. She was also having burning sensation on urination as well as loose bowel movement. She has fever and leukocytosis on admission. She has Atrial fibrillation in rapid ventricular response. CT scan of the abdomen and pelvis was done which showed left sided perinephric stranding. She is in the ICU because of uncontrolled atrial fibrillation requiring cardizem gtt, now off the gtt and downgraded to telemetry. Urine culture (01/21) grew Klebsiella pneumonia. Blood culture (01/21) grew gram negative radha in aerobic bottle (1/2 bottles). She is on aztreonam and repeat blood culture (01/24) neg x 1d Severe sepsis, with atrial fibrillation with rapid ventricular response, due to gram neg bacteremia and pyelonephritis - improving Gram negative bacteremia, likely from pyelonephritis left sided pyelonephritis. - fluid resuscitated in ED and got cipro. Diarrhea resolved. Fever and leukocytosis resolved. - Upgraded antibiotics to aztreonam for added pseudomonas coverage, day __5__. - Stopped vancomycin due to no sign of gram positive infection. - Repeat culture (01/24) to monitor bacteremeia. - Tylenol prn for fever. Diarrhea resolved. Fever and leukocytosis resolved. Pt was downgraded to telemetry for improved in a fib RVR. Rapid a fib on anticoagulation, likely from sepsis/infection. had ruled out secondary cause from hyperthyroid - improves - 2 second pause last night - Increase calan dose o 80mg TID yesterday. - HR more control 100s. occasional 40-60 - on eliquis. off cardizem gtt, verapamil IVP as needed if HR > 130. Change PO cardizem to verapamil PO. On non-specific BB propanolol (in the setting of hyperthyroid). D/C metoprolol Dyspnea due to fluid overload and decreased forward flow from a fib - resolved after D/C IVF. Hx COPD - Switch duoneb to xopenex/ipratropium. Taper prednisone to 20 daily tomorrow. continue budesonide DM2, A1C 9.2, uncontrolled. Insulin dependent. Hypoglycemic episode resolved. - On Levemi, Humalog AC, ISSS, diabetic education Worsening of urinary incontinence, likely due to pyelonephritis. Dr Estrada on consult. - On purwick - voiding trial today just d/c macias For hyperthryoid, TSH normal, continnue methimazole Diarrhea likely due to intraabdominal/retroperitoneal irritation from pyelonephritis - resolved dehydration - resolved mild prerenal azotemia - resolved Hx COPD Echo 2018 (EF 62, RVSP 43) Penicillin and clarithromycin allergy DNR/DNI PVX - eliquis, pepcid for high risk of GI stress ulcer from sepsis Discharge planning: pending repeat blood culture. Pending the positive blood culure (01/21) sensitivity and identification. Just called [facility] [place] micro lab, who will post the result shortly. May need 10 more days of PO ABX pending ID rec. PT recommend TIFFANIE s/r/d/w Dr Woodruff <Tod Woodruff S - Last Filed: 01/26/18 21:18> Objective - Vital Signs/Intake and Output Vital Signs (last 24 hours): Temp Pulse Resp BP Pulse Ox 98 F 75 18 137/94 H 95 01/26/18 17:25 01/26/18 18:57 01/26/18 17:25 01/26/18 18:57 01/25/18 00:01 Intake and Output: 01/26/18 01/27/18 18:59 06:59 Intake Total 600 Output Total 2350 Balance -1750 - Medications Medications: Current Medications Acetaminophen (Tylenol 325mg Tab) 650 mg PO Q4 PRN PRN Reason: Fever >100.4 F Last Admin: 01/24/18 13:18 Dose: 650 mg Apixaban (Eliquis) 5 mg PO BID [facility] PRN Reason: Protocol Last Admin: 01/26/18 18:57 Dose: 5 mg Budesonide (Pulmicort Respules) 0.5 mg IH [id number] [facility] Last Admin: 01/26/18 19:55 Dose: 0.5 mg Famotidine (Pepcid) 40 mg PO HS [facility] Last Admin: 01/25/18 22:46 Dose: 40 mg Aztreonam (Azactam 1 Gm) 100 mls @ 100 mls/hr IVPB Q8 [facility] PRN Reason: Protocol Stop: 01/29/18 11:16 Last Admin: 01/26/18 14:19 Dose: 100 mls/hr Insulin Detemir (Levemir) 40 unit SC [facility] Last Admin: 01/25/18 22:47 Dose: 40 u Insulin Human Lispro (Humalog Low) 0 units SC ACHS [facility] PRN Reason: Protocol Last Admin: 01/26/18 17:56 Dose: Not Given Insulin Human Lispro (Humalog) 12 units SC AC [facility] Last Admin: 01/26/18 17:11 Dose: 12 unit Ipratropium [place] (Atrovent) 0.5 mg IH [id number] [facility] Last Admin: 01/26/18 19:55 Dose: 0.5 mg Levalbuterol HCl (Xopenex) 1.25 mg IH Q2 PRN PRN Reason: Shortness of Breath Last Admin: 01/25/18 00:59 Dose: 1.25 mg Levalbuterol HCl (Xopenex) 1.25 mg IH [id number] [facility] Last Admin: 01/26/18 19:56 Dose: 1.25 mg Methimazole (Tapazole) 5 mg PO DAILY [facility] Last Admin: 01/26/18 09:15 Dose: 5 mg Potassium Phos/Sodium Phos (Neutra-Phos) 2 pkt PO BID [facility] Stop: 01/28/18 10:01 Last Admin: 01/26/18 17:12 Dose: 2 pkt Prednisone (Prednisone Tab) 20 mg PO DAILY [facility] Propranolol HCl (Inderal) 40 mg PO TID [facility] Last Admin: 08/10/18 18:57 Dose: 40 mg Verapamil HCl (Verapamil Inj) 2.5 mg IVP Q6H PRN PRN Reason: for heart rate >130 Last Admin: 01/25/18 12:48 Dose: 2.5 mg Verapamil HCl (Calan Tab) 80 mg PO TID [facility] Last Admin: 01/26/18 18:57 Dose: 80 mg - Labs Labs: 01/26/18 05:30 01/26/18 05:30 PT 18.5 SECONDS (9.4-12.5) H 01/21/18 08:45 INR 1.59 01/21/18 08:45 APTT 28.5 Seconds (25.1-36.5) 01/21/18 08:45 Assessment and Plan - Assessment and Plan (Free Text) Plan: Pt seen and examined. I have reviewed the note of the medical instructor and agree with it. I have discussed the assessment and plan with the resident. I have reviewed the patient's labs and medications. Pt with A fib. Her rate is better controlled. Will need to continue with IV Abx.
--- NOTE | 2018-01-26 12:13 | CP.PCM.PN ---
Subjective - Date & Time of Evaluation Date of Evaluation: 01/26/18 Time of Evaluation: 09:35 - Subjective Subjective: Patient is comfortable in bed, no fevers, no chest palpitations currently, no nausea. Objective - Vital Signs/Intake and Output Vital Signs (last 24 hours): Temp Pulse Resp BP Pulse Ox 97.8 F 115 H 20 138/84 95 01/25/18 11:51 01/25/18 11:51 01/25/18 11:51 01/25/18 11:51 01/25/18 00:01 Intake and Output: 01/25/18 01/25/18 06:59 18:59 Intake Total 300 Output Total 700 Balance -400 - Medications Medications: Current Medications Acetaminophen (Tylenol 325mg Tab) 650 mg PO Q4 PRN PRN Reason: Fever >100.4 F Last Admin: 01/24/18 13:18 Dose: 650 mg Apixaban (Eliquis) 5 mg PO BID [facility] PRN Reason: Protocol Last Admin: 01/25/18 09:11 Dose: 5 mg Budesonide (Pulmicort Respules) 0.5 mg IH [id number] [facility] Last Admin: 01/25/18 07:14 Dose: 0.5 mg Famotidine (Pepcid) 40 mg PO HS [facility] Last Admin: 01/24/18 22:32 Dose: 40 mg Aztreonam (Azactam 1 Gm) 100 mls @ 100 mls/hr IVPB Q8 [facility] PRN Reason: Protocol Stop: 01/29/18 11:16 Last Admin: 01/25/18 06:05 Dose: 100 mls/hr Insulin Detemir (Levemir) 40 unit SC HS [facility] Last Admin: 01/24/18 22:30 Dose: 40 u Insulin Human Lispro (Humalog Low) 0 units SC ACHS [facility] PRN Reason: Protocol Last Admin: 01/25/18 08:20 Dose: 2 units Insulin Human Lispro (Humalog) 12 units SC AC [facility] Ipratropium [place] (Atrovent) 0.5 mg IH [id number] [facility] Last Admin: 01/25/18 07:13 Dose: 0.5 mg Ipratropium [place] (Atrovent) 0.5 mg IH Q2 PRN PRN Reason: Shortness of Breath Last Admin: 01/25/18 00:58 Dose: 0.5 mg Levalbuterol HCl (Xopenex) 1.25 mg IH Q2 PRN PRN Reason: Shortness of Breath Last Admin: 01/25/18 00:59 Dose: 1.25 mg Levalbuterol HCl (Xopenex) 1.25 mg IH [id number] [facility] Last Admin: 01/25/18 07:13 Dose: 1.25 mg Methimazole (Tapazole) 5 mg PO DAILY [facility] Last Admin: 01/25/18 09:10 Dose: 5 mg Potassium Phos/Sodium Phos (Neutra-Phos) 2 pkt PO BID [facility] Stop: 01/28/18 10:01 Last Admin: 01/25/18 10:35 Dose: 2 pkt Prednisone (Prednisone Tab) 30 mg PO DAILY [facility] Propranolol HCl (Inderal) 40 mg PO TID [facility] Last Admin: 01/25/18 09:11 Dose: 40 mg Verapamil HCl (Calan Tab) 40 mg PO TID [facility] Last Admin: 01/25/18 09:11 Dose: 40 mg Verapamil HCl (Verapamil Inj) 2.5 mg IVP Q6H PRN PRN Reason: for heart rate >130 Last Admin: 01/24/18 12:48 Dose: 2.5 mg - Labs Labs: 01/25/18 09:20 01/25/18 09:20 PT 18.5 SECONDS (9.4-12.5) H 01/21/18 08:45 INR 1.59 01/21/18 08:45 APTT 28.5 Seconds (25.1-36.5) 01/21/18 08:45 - Constitutional Appears: Non-toxic, Chronically Ill - Head Exam Head Exam: NORMAL INSPECTION - Respiratory Exam Respiratory Exam: Decreased Breath Sounds - Cardiovascular Exam Cardiovascular Exam: +S1, +S2 - GI/Abdominal Exam GI & Abdominal Exam: Soft. absent: Tenderness Assessment and Plan - Assessment and Plan (Free Text) Plan: Assessment Severe sepsis with hypoxic respiratory failure due to left sided pyelonephritis with Klebsiella and gram negative bacilli bacteremia on top of atrial fibrillation with rapid ventricular response atrial fibrillation on anticoagulation COPD obesity with BMI 31 Plan continue Azactam day 5 pending identification and sensitivities of the gram negative bacilli in the blood cx; repeat blood cx are negative - should complete 10-14 days total therapy (Day 5 today) discussed with Dr. Acuña's team will continue to monitor clinically
[2018-01-26] MEDS: Aztreonam 1 Gm in NS 100mL 100 ML IVPB SCH ×2 (14:19→22:30)
--- NOTE | 2018-01-26 16:34 | PN ---
Copied To: Alfonso Estrada MD Attending MD: Alfonso Estrada MD DATE: 01/26/2018 SUBJECTIVE: The patient is well known to me. She has chronic urinary incontinence, urinary frequency and urgency with chronic cystitis and recurrent urinary tract infections. 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 The patient is in [facility]. She is being treated for possible pyelonephritis with urosepsis. The CT scan does show some perinephric stranding although that is suggestive of pyelonephritis. Most likely, the patient's urosepsis is from a severe cystitis. The patient's urine and blood cultures have been positive for Klebsiella pneumoniae. Repeat blood cultures were negative. The patient is being seen by ID and Critical Care. The patient has been having atrial fibrillation with rapid ventricular response. She is currently a DNR, do not intubate status. Per ID recommendation, the patient should complete 10-14 days total therapy of antibiotics. She is currently on day 5. She continues to have cardiac issues with runs of tachycardia and there seemed to be an apparent 2 second cardiac pause noted in her medical record. Urologically, the plan will be to continue the antibiotics as per ID recommendation. The patient should follow up in my office as an outpatient after she has medically improved to recheck her urine, make sure the infections have resolved. She should continue treatment by Intensive Care and Cardiology regarding her atrial fibrillation with rapid ventricular response. No acute urologic intervention is needed at this time. There is no hydronephrosis or evidence of urinary obstruction. Alfonso Estrada MD
[2018-01-26] MEDS: Insulin Detemir 100 units/ml Vial (Levemir) SC SCH (22:31)
[2018-01-27] MEDS: Aztreonam 1 Gm in NS 100mL 100 ML IVPB SCH ×3 (05:53→22:17)
[2018-01-27 06:02] LABS: BASO # 0.02 K/mm3 (0.0-2.0); BASO % 0.2 % (0.0-3.0); EOS # 0.1 (0.0-0.7); EOS % 0.6 % (1.5-5.0); GRAN # 4.96 (1.4-6.5); GRAN % 58.1 % (50.0-68.0); LYMPH # 2.5 (1.2-3.4); LYMPH % 29.4 % (22.0-35.0); MEAN CELL VOLUME 93.5 fl (80.0-105.0); MEAN CORPUSCULAR HEMOGLOBIN 31.4 pg (25.0-35.0); MEAN CORPUSCULAR HGB CONC 33.6 g/dl (31.0-37.0); MEAN PLATELET VOLUME 10.9 fl (7.0-11.0); MONO % 11.7 % (1.0-6.0); RBC 4.14 10^6/uL (3.5-6.1); RED CELL DISTRIBUTION WIDTH 12.8 % (11.5-14.5); WHITE BLOOD COUNT 8.5 10^3/ul (4.5-11.0)
[2018-01-27 06:25] LABS: ALBUMIN 3.2 g/dL (3.0-4.8); ALT/SGPT 57 U/L (7-56); AST/SGOT 50 U/L (14-36); BLOOD UREA NITROGEN 18 mg/dL (7-21); CALCIUM 9.3 mg/dL (8.4-10.5); GFR AFRICAN-AMERICAN > 60; GFR NON-AFRICAN AMERICAN > 60
[2018-01-27] MEDS: Ipratropium 0.02% Inhal Soln (0.5 mg/2.5 ml) UD IH SCH ×3 (07:53→20:08)
[2018-01-27] MEDS: Levalbuterol 1.25 MG/3 ML Inhal Soln UD IH SCH ×3 (07:53→20:06)
[2018-01-27] MEDS: Budesonide 0.5 mg/2 ml Inhal Susp UD IH SCH ×2 (07:53→20:07)
[2018-01-27] MEDS: Insulin Lispro (humaLOG) LOW Coverage SC SCH ×4 (08:44→22:17)
[2018-01-27] MEDS: Insulin Lispro 1 UNITS/0.01 ML SC SCH ×4 (08:54→17:40)
[2018-01-27] MEDS: methIMAzole 5 MG TAB PO SCH (10:55)
[2018-01-27] MEDS: Potassium & Sodium Phosphate PO SCH ×2 (10:56→17:34)
--- NOTE | 2018-01-27 12:01 | CP.PCM.PN ---
Subjective - Date & Time of Evaluation Date of Evaluation: 01/27/18 Time of Evaluation: 11:30 - Subjective Subjective: Breathing better today, no fevers, not in distress. No dysuria, no nausea, no diarrhea. Objective - Vital Signs/Intake and Output Vital Signs (last 24 hours): Temp Pulse Resp BP Pulse Ox 97.1 F L 112 H 19 143/92 H 97 01/27/18 11:57 01/27/18 11:57 01/27/18 11:57 01/27/18 11:57 01/27/18 06:00 Intake and Output: 01/27/18 01/27/18 06:59 18:59 Intake Total 560 Output Total 1800 Balance -1240 - Medications Medications: Current Medications Acetaminophen (Tylenol 325mg Tab) 650 mg PO Q4 PRN PRN Reason: Fever >100.4 F Last Admin: 01/24/18 13:18 Dose: 650 mg Apixaban (Eliquis) 5 mg PO BID [facility] PRN Reason: Protocol Last Admin: 01/27/18 10:55 Dose: 5 mg Budesonide (Pulmicort Respules) 0.5 mg IH [id number] [facility] Last Admin: 01/27/18 07:53 Dose: 0.5 mg Famotidine (Pepcid) 40 mg PO HS [facility] Last Admin: 01/26/18 22:31 Dose: 40 mg Aztreonam (Azactam 1 Gm) 100 mls @ 100 mls/hr IVPB Q8 [facility] PRN Reason: Protocol Stop: 01/29/18 11:16 Last Admin: 01/27/18 05:53 Dose: 100 mls/hr Insulin Detemir (Levemir) 40 unit SC HS [facility] Last Admin: 01/26/18 22:31 Dose: 40 u Insulin Human Lispro (Humalog Low) 0 units SC ACHS [facility] PRN Reason: Protocol Last Admin: 01/27/18 08:44 Dose: Not Given Insulin Human Lispro (Humalog) 12 units SC AC [facility] Last Admin: 01/27/18 08:56 Dose: Not Given Ipratropium [place] (Atrovent) 0.5 mg IH [id number] [facility] Last Admin: 01/27/18 07:53 Dose: 0.5 mg Levalbuterol HCl (Xopenex) 1.25 mg IH Q2 PRN PRN Reason: Shortness of Breath Last Admin: 01/25/18 00:59 Dose: 1.25 mg Levalbuterol HCl (Xopenex) 1.25 mg IH [id number] [facility] Last Admin: 01/27/18 07:53 Dose: 1.25 mg Methimazole (Tapazole) 5 mg PO DAILY [facility] Last Admin: 01/27/18 10:55 Dose: 5 mg Potassium Phos/Sodium Phos (Neutra-Phos) 2 pkt PO BID [facility] Stop: 01/28/18 10:01 Last Admin: 01/27/18 10:56 Dose: 2 pkt Prednisone (Prednisone Tab) 20 mg PO DAILY [facility] Last Admin: 01/27/18 10:55 Dose: 20 mg Propranolol HCl (Inderal) 40 mg PO TID [facility] Last Admin: 01/27/18 10:55 Dose: 40 mg Verapamil HCl (Verapamil Inj) 2.5 mg IVP Q6H PRN PRN Reason: for heart rate >130 Last Admin: 01/25/18 12:48 Dose: 2.5 mg Verapamil HCl (Calan Tab) 80 mg PO TID [facility] Last Admin: 01/27/18 10:55 Dose: 80 mg - Labs Labs: 01/27/18 05:00 01/27/18 05:00 PT 18.5 SECONDS (9.4-12.5) H 01/21/18 08:45 INR 1.59 01/21/18 08:45 APTT 28.5 Seconds (25.1-36.5) 01/21/18 08:45 - Constitutional Appears: Non-toxic, Chronically Ill - Head Exam Head Exam: NORMAL INSPECTION - Neck Exam Neck Exam: absent: Meningismus - Respiratory Exam Respiratory Exam: Decreased Breath Sounds - Cardiovascular Exam Cardiovascular Exam: +S1, +S2 - GI/Abdominal Exam GI & Abdominal Exam: Soft. absent: Tenderness Assessment and Plan - Assessment and Plan (Free Text) Plan: Assessment Severe sepsis with hypoxic respiratory failure due to left sided pyelonephritis with Klebsiella bacteremia on top of atrial fibrillation with rapid ventricular response atrial fibrillation on anticoagulation COPD obesity with BMI 31 Plan continue Azactam day 6 pending identification and sensitivities of the gram negative bacilli in the blood cx; repeat blood cx are negative - should complete 10-14 days total therapy (Day 6 today) discussed with Dr. Acuña's team will continue to monitor clinically
[2018-01-27] MEDS: Insulin Detemir 100 units/ml Vial (Levemir) SC SCH (22:16)
--- NOTE | 2018-01-27 23:13 | PN ---
Copied To: Tesha Cortes MD Attending MD: Tesha Cortes MD DATE: 01/27/2018 HISTORY OF PRESENT ILLNESS: Ms. Chavis is a 77-year-old female admitted with rapid atrial fibrillation. She was in ICU, started on Cardizem drip, heart rate is controlled now. She also was found to have urosepsis with positive blood culture, urine culture, currently on IV antibiotics as per ID. Feeling better. No events overnight. Denies any pain. REVIEW OF SYSTEMS: As per HPI. Rest of 12-point review of systems reviewed negative. PHYSICAL EXAMINATION: GENERAL: Comfortable in bed in no acute distress. VITAL SIGNS: Temperature 98.8, heart rate 86 per minute, blood pressure 120/70, respiratory rate 18 per minute, oxygen saturation 98% room air. HEENT: Pallor positive. NECK: No lymphadenopathy. CHEST: Air entry present and equal bilaterally. No added sounds. CARDIOVASCULAR: S1, S2 normal. No murmur. No gallop. ABDOMEN: Soft and nontender. No hepatosplenomegaly. EXTREMITIES: No edema. SPINE: Nontender. MEDICATIONS: Tylenol 650 every 4 hours p.r.n., Eliquis 5 mg p.o. b.i.d., Azactam 1 g every 8 hours, Pulmicort inhalation, Pepcid 40 mg daily, insulin 40 subcu at bedtime, sliding scale insulin, Atrovent, Xopenex, methimazole 5 mg p.o. daily, prednisone 20 mg daily, propranolol 40 mg p.o. t.i.d., verapamil 2.5 mg every 6 hours. LABORATORY DATA: White count 8.5, hemoglobin 13, hematocrit 38.7, platelet 416. Sodium 138, potassium 4.1, creatinine 0.5, bilirubin 0.2. ASSESSMENT: 1. Rapid atrial fibrillation. 2. Urosepsis. 3. Granulocytosis. PLAN: She is currently on IV antibiotics, Azactam, continue that, oral steroid prednisone 20 mg daily, bronchodilators with Xopenex. She is also on anticoagulation 5 mg p.o. b.i.d. Eliquis for atrial fibrillation, we will continue that. Sugar control with current insulin regimen. Hemoglobin and hematocrit stable. White count 8.5. Granulocytosis resolved. Molecular Technologist note reviewed, ID, Dr. Sahu and Dr. Estrada. Tesha Cortes MD [facility] # [id number]
[2018-01-28] MEDS: Ipratropium 0.02% Inhal Soln (0.5 mg/2.5 ml) UD IH SCH ×5 (01:13→21:22)
[2018-01-28] MEDS: Levalbuterol 1.25 MG/3 ML Inhal Soln UD IH SCH ×4 (01:14→21:22)
[2018-01-28] MEDS: Aztreonam 1 Gm in NS 100mL 100 ML IVPB SCH ×3 (06:32→22:10)
[2018-01-28] MEDS: Budesonide 0.5 mg/2 ml Inhal Susp UD IH SCH ×2 (07:51→21:00)
[2018-01-28 08:07] LABS: ALB/GLOB RATIO 1.1 (1.1-1.8); ALBUMIN 3.3 g/dL (3.0-4.8); ALT/SGPT 75 U/L (7-56); AST/SGOT 54 U/L (14-36); BLOOD UREA NITROGEN 17 mg/dL (7-21); CALCIUM 9.5 mg/dL (8.4-10.5); GFR AFRICAN-AMERICAN > 60; GFR NON-AFRICAN AMERICAN > 60
[2018-01-28] MEDS: Insulin Lispro (humaLOG) LOW Coverage SC SCH ×4 (08:39→22:03)
[2018-01-28] MEDS: Insulin Lispro 1 UNITS/0.01 ML SC SCH ×3 (08:39→18:05)
[2018-01-28 08:52] LABS: BASO # 0.03 K/mm3 (0.0-2.0); BASO % 0.3 % (0.0-3.0); EOS # 0.1 (0.0-0.7); GRAN # 6.15 (1.4-6.5); GRAN % 56.3 % (50.0-68.0); HEMOGLOBIN 12.9 g/dL (12.0-16.0); LYMPH # 3.1 (1.2-3.4); LYMPH % 28.8 % (22.0-35.0); MEAN CELL VOLUME 94.7 fl (80.0-105.0); MEAN CORPUSCULAR HEMOGLOBIN 31.2 pg (25.0-35.0); MEAN PLATELET VOLUME 10.9 fl (7.0-11.0); MONO # 1.5 (0.1-0.6); MONO % 13.6 % (1.0-6.0); RBC 4.13 10^6/uL (3.5-6.1); RED CELL DISTRIBUTION WIDTH 12.7 % (11.5-14.5); WHITE BLOOD COUNT 10.9 10^3/ul (4.5-11.0)
[2018-01-28] MEDS: methIMAzole 5 MG TAB PO SCH (09:17)
[2018-01-28] MEDS: Potassium & Sodium Phosphate PO SCH (09:17)
--- NOTE | 2018-01-28 15:42 | CP.PCM.PN ---
Subjective - Date & Time of Evaluation Date of Evaluation: 01/28/18 Time of Evaluation: 10:55 - Subjective Subjective: No fevers, no nausea, no diarrhea, going for physical therapy. Objective - Vital Signs/Intake and Output Vital Signs (last 24 hours): Temp Pulse Resp BP Pulse Ox 97.1 F L 112 H 19 143/92 H 97 01/27/18 11:57 01/27/18 11:57 01/27/18 11:57 01/27/18 11:57 01/27/18 06:00 Intake and Output: 01/27/18 01/27/18 06:59 18:59 Intake Total 560 Output Total 1800 Balance -1240 - Medications Medications: Current Medications Acetaminophen (Tylenol 325mg Tab) 650 mg PO Q4 PRN PRN Reason: Fever >100.4 F Last Admin: 01/24/18 13:18 Dose: 650 mg Apixaban (Eliquis) 5 mg PO BID [facility] PRN Reason: Protocol Last Admin: 01/27/18 10:55 Dose: 5 mg Budesonide (Pulmicort Respules) 0.5 mg IH [id number] [facility] Last Admin: 01/27/18 07:53 Dose: 0.5 mg Famotidine (Pepcid) 40 mg PO HS [facility] Last Admin: 01/26/18 22:31 Dose: 40 mg Aztreonam (Azactam 1 Gm) 100 mls @ 100 mls/hr IVPB Q8 [facility] PRN Reason: Protocol Stop: 01/29/18 11:16 Last Admin: 01/27/18 05:53 Dose: 100 mls/hr Insulin Detemir (Levemir) 40 unit SC HS [facility] Last Admin: 01/26/18 22:31 Dose: 40 u Insulin Human Lispro (Humalog Low) 0 units SC ACHS [facility] PRN Reason: Protocol Last Admin: 01/27/18 08:44 Dose: Not Given Insulin Human Lispro (Humalog) 12 units SC AC [facility] Last Admin: 01/27/18 08:56 Dose: Not Given Ipratropium [place] (Atrovent) 0.5 mg IH [id number] [facility] Last Admin: 01/27/18 07:53 Dose: 0.5 mg Levalbuterol HCl (Xopenex) 1.25 mg IH Q2 PRN PRN Reason: Shortness of Breath Last Admin: 01/25/18 00:59 Dose: 1.25 mg Levalbuterol HCl (Xopenex) 1.25 mg IH [id number] [facility] Last Admin: 01/27/18 07:53 Dose: 1.25 mg Methimazole (Tapazole) 5 mg PO DAILY [facility] Last Admin: 01/27/18 10:55 Dose: 5 mg Potassium Phos/Sodium Phos (Neutra-Phos) 2 pkt PO BID [facility] Stop: 01/28/18 10:01 Last Admin: 01/27/18 10:56 Dose: 2 pkt Prednisone (Prednisone Tab) 20 mg PO DAILY [facility] Last Admin: 01/27/18 10:55 Dose: 20 mg Propranolol HCl (Inderal) 40 mg PO TID [facility] Last Admin: 01/27/18 10:55 Dose: 40 mg Verapamil HCl (Verapamil Inj) 2.5 mg IVP Q6H PRN PRN Reason: for heart rate >130 Last Admin: 01/25/18 12:48 Dose: 2.5 mg Verapamil HCl (Calan Tab) 80 mg PO TID [facility] Last Admin: 01/27/18 10:55 Dose: 80 mg - Labs Labs: 01/27/18 05:00 01/27/18 05:00 PT 18.5 SECONDS (9.4-12.5) H 01/21/18 08:45 INR 1.59 01/21/18 08:45 APTT 28.5 Seconds (25.1-36.5) 01/21/18 08:45 - Constitutional Appears: Chronically Ill - Head Exam Head Exam: NORMAL INSPECTION - ENT Exam ENT Exam: Mucous Membranes Moist - Neck Exam Neck Exam: absent: Meningismus - Respiratory Exam Respiratory Exam: Decreased Breath Sounds - Cardiovascular Exam Cardiovascular Exam: +S1, +S2 - GI/Abdominal Exam GI & Abdominal Exam: Soft. absent: Tenderness Assessment and Plan - Assessment and Plan (Free Text) Plan: Assessment Severe sepsis with hypoxic respiratory failure due to left sided pyelonephritis with Klebsiella bacteremia on top of atrial fibrillation with rapid ventricular response atrial fibrillation on anticoagulation COPD obesity with BMI 31 Plan continue Azactam day 7 pending identification and sensitivities of the gram negative bacilli in the blood cx; repeat blood cx are negative - should complete 10-14 days total therapy (Day 7 today) - can switch to PO antibiotics when ready for discharge discussed with Dr. Acuña's team previously will continue to monitor clinically
--- NOTE | 2018-01-28 20:17 | PN ---
Copied To: Tesha Cortes MD Attending MD: Tesha Cortes MD DATE: 01/28/2018 SUBJECTIVE: She is comfortable in bed, in no acute distress, has tachycardia in the night. No chest pain. No nausea. No vomiting. She has urosepsis, currently on IV antibiotics as per ID. REVIEW OF SYSTEMS: As per HPI. Rest of 12-point review of systems reviewed negative. PHYSICAL EXAMINATION: GENERAL: Comfortable in bed, in no acute distress. VITAL SIGNS: Temperature 98, heart rate is 85 per minute, blood pressure , respiratory rate 15 per minute, oxygen saturation 98% on room air . HEENT: Pallor positive. NECK: No lymphadenopathy. CHEST: Air entry present and equal bilateral. No added sound. CARDIOVASCULAR: S1, S2 normal. No murmur. No gallop. ABDOMEN: Soft, nontender. No hepatosplenomegaly. EXTREMITIES: No edema. SPINE: Nontender. MEDICATIONS: Tylenol 650 every 6 hours p.r.n., Pepcid 40 mg daily, Eliquis 5 mg p.o. b.i.d., Azactam, prednisone 20 mg daily, propranolol 40 mg daily, verapamil 2.5 mg every 6 hours. LABORATORY DATA: White count 8.5, hemoglobin 12, hematocrit 38.7, platelets 416. Creatinine 0.5. ASSESSMENT: 1. Rapid atrial fibrillation. 2. Urosepsis. 3. Granulocytosis. PLAN: Currently on IV antibiotics. ID consultation, Dr. Lyons appreciated. Dr. Sahu's note reviewed. We will continue Azactam, Eliquis 5 mg p.o. b.i.d. for atrial fibrillation. Heart rate is controlled most of the time, has runs of tachycardia last night. Granulocytosis is resolving. Hemoglobin and hematocrit is stable. Renal stable. Tesha Cortes MD
[2018-01-28] MEDS: Insulin Detemir 100 units/ml Vial (Levemir) SC SCH (22:09)
[2018-01-29] MEDS: Levalbuterol 1.25 MG/3 ML Inhal Soln UD IH SCH ×4 (01:37→19:54)
[2018-01-29] MEDS: Ipratropium 0.02% Inhal Soln (0.5 mg/2.5 ml) UD IH SCH ×4 (01:37→19:53)
[2018-01-29] MEDS: Aztreonam 1 Gm in NS 100mL 100 ML IVPB SCH (05:24)
[2018-01-29 06:34] LABS: BASO # 0.03 K/mm3 (0.0-2.0); BASO % 0.2 % (0.0-3.0); EOS # 0.2 (0.0-0.7); EOS % 1.3 % (1.5-5.0); GRAN # 8.31 (1.4-6.5); HEMOGLOBIN 13.2 g/dL (12.0-16.0); LYMPH # 3.9 (1.2-3.4); LYMPH % 28.8 % (22.0-35.0); MEAN CELL VOLUME 93.3 fl (80.0-105.0); MEAN CORPUSCULAR HEMOGLOBIN 31.4 pg (25.0-35.0); MEAN CORPUSCULAR HGB CONC 33.6 g/dl (31.0-37.0); MEAN PLATELET VOLUME 10.7 fl (7.0-11.0); MONO % 7.7 % (1.0-6.0); RBC 4.21 10^6/uL (3.5-6.1); RED CELL DISTRIBUTION WIDTH 12.8 % (11.5-14.5); WHITE BLOOD COUNT 13.4 10^3/ul (4.5-11.0)
--- NOTE | 2018-01-29 06:48 | CP.PCM.PN ---
Subjective - Date & Time of Evaluation Date of Evaluation: 01/29/18 Time of Evaluation: 06:15 - Subjective Subjective: Awake, alert, no distress Reason for consultation and follow up: Cardiac evaluation of Rapid ventricular atrial fibrillation, history of chronic atrial fibrillation,on Eliquis COPD, coronary artery disease, diabetes mellitus, admitted for urinary tract infection Seen and examined by me and Objective - Vital Signs/Intake and Output Vital Signs (last 24 hours): Temp Pulse Resp BP Pulse Ox 98.7 F 109 H 17 119/85 98 01/29/18 00:01 01/29/18 05:30 01/29/18 00:01 01/29/18 00:01 01/29/18 00:01 Intake and Output: 01/28/18 01/29/18 18:59 06:59 Intake Total 300 Output Total 1200 Balance -900 - Medications Medications: Current Medications Acetaminophen (Tylenol 325mg Tab) 650 mg PO Q4 PRN PRN Reason: Fever >100.4 F Last Admin: 01/24/18 13:18 Dose: 650 mg Apixaban (Eliquis) 5 mg PO BID [facility] PRN Reason: Protocol Last Admin: 01/28/18 18:03 Dose: 5 mg Budesonide (Pulmicort Respules) 0.5 mg IH [id number] [facility] Last Admin: 01/28/18 21:00 Dose: 0.5 mg Famotidine (Pepcid) 40 mg PO HS [facility] Last Admin: 01/28/18 22:09 Dose: 40 mg Aztreonam (Azactam 1 Gm) 100 mls @ 100 mls/hr IVPB Q8 [facility] PRN Reason: Protocol Stop: 01/29/18 11:16 Last Admin: 01/29/18 05:24 Dose: 100 mls/hr Insulin Detemir (Levemir) 40 unit SC HS [facility] Last Admin: 01/28/18 22:09 Dose: 40 u Insulin Human Lispro (Humalog Low) 0 units SC ACHS [facility] PRN Reason: Protocol Last Admin: 01/28/18 22:03 Dose: Not Given Insulin Human Lispro (Humalog) 12 units SC AC [facility] Last Admin: 01/28/18 18:05 Dose: 12 unit Ipratropium [place] (Atrovent) 0.5 mg IH [id number] [facility] Last Admin: 01/29/18 01:37 Dose: Not Given Levalbuterol HCl (Xopenex) 1.25 mg IH Q2 PRN PRN Reason: Shortness of Breath Last Admin: 01/25/18 00:59 Dose: 1.25 mg Levalbuterol HCl (Xopenex) 1.25 mg IH [id number] [facility] Last Admin: 01/29/18 01:37 Dose: Not Given Methimazole (Tapazole) 5 mg PO DAILY [facility] Last Admin: 01/28/18 09:17 Dose: 5 mg Prednisone (Prednisone Tab) 20 mg PO DAILY [facility] Last Admin: 01/28/18 09:17 Dose: 20 mg Propranolol HCl (Inderal) 40 mg PO TID [facility] Last Admin: 01/28/18 18:04 Dose: 40 mg Verapamil HCl (Verapamil Inj) 2.5 mg IVP Q6H PRN PRN Reason: for heart rate >130 Last Admin: 01/25/18 12:48 Dose: 2.5 mg Verapamil HCl (Calan Tab) 80 mg PO TID [facility] Last Admin: 01/28/18 18:04 Dose: 80 mg - Labs Labs: 01/29/18 05:30 01/28/18 06:30 PT 18.5 SECONDS (9.4-12.5) H 01/21/18 08:45 INR 1.59 01/21/18 08:45 APTT 28.5 Seconds (25.1-36.5) 01/21/18 08:45 - Constitutional Appears: No Acute Distress - Eye Exam Eye Exam: Normal appearance - ENT Exam ENT Exam: Mucous Membranes Moist - Respiratory Exam Respiratory Exam: Decreased Breath Sounds, NORMAL BREATHING PATTERN - Cardiovascular Exam Cardiovascular Exam: Irregular Rhythm, +S1, +S2 Additional comments: Atrial fibrillation - Extremities Exam Extremities Exam: Normal Capillary Refill - Neurological Exam Neurological Exam: Alert, Awake, Oriented x3 - Psychiatric Exam Psychiatric exam: Normal Affect - Skin Skin Exam: Dry, Warm Assessment and Plan - Assessment and Plan (Free Text) Assessment: A 77 year old female who came in to the ER due to weakness, fatigue and shortness of breath. Had rapid ventricular rate strial fibrillation in ER due to sepsis,IV Lopressor,Diqoxin and Cardizem drip given. transferred to ICU for further management. History of coronary artery disease with stenting, last cardiac cath at [facility] in 2013 showed patent stent in LAD, disease in diagonal, small vessel.ECHO 2017-LVEF 60 % normal ventricular function. history of COPD, diabetes mellitus, chronic Afib on Eliquis,hyperthyroidism, Stabilized heart rate in ICU and now transferred to telemetry. Plan: Atrial fibrillation,rate difficult to control, increase Calan dose Heart rate over the weekend 100's to 120's, no complaints Will start Digoxin Patient comfortable Blood pressure stable On Eliquis 5 mg BID, Inderal 40 mg TID, Calan 80 mg TID ID on consult, continue IV antibiotics Continue current medications Continue current treatment Will follow up Plan and treatment discussed with Dr. Modi
[2018-01-29 07:11] LABS: ALB/GLOB RATIO 1.1 (1.1-1.8); ALBUMIN 3.2 g/dL (3.0-4.8); ALT/SGPT 70 U/L (7-56); AST/SGOT 41 U/L (14-36); BLOOD UREA NITROGEN 21 mg/dL (7-21); CALCIUM 9.5 mg/dL (8.4-10.5); GFR AFRICAN-AMERICAN > 60; GFR NON-AFRICAN AMERICAN > 60
[2018-01-29] MEDS: Insulin Lispro (humaLOG) LOW Coverage SC SCH ×4 (08:13→21:57)
[2018-01-29] MEDS: Insulin Lispro 1 UNITS/0.01 ML SC SCH ×4 (08:23→17:45)
[2018-01-29] MEDS: Budesonide 0.5 mg/2 ml Inhal Susp UD IH SCH ×2 (08:46→19:53)
[2018-01-29] MEDS: methIMAzole 5 MG TAB PO SCH (11:13)
--- NOTE | 2018-01-29 11:42 | CP.PCM.PN ---
Subjective - Date & Time of Evaluation Date of Evaluation: 01/29/18 Time of Evaluation: 11:20 - Subjective Subjective: Still with occasional palpitations but no SOB at rest, no fevers, no nausea, no dysuria. Objective - Vital Signs/Intake and Output Vital Signs (last 24 hours): Temp Pulse Resp BP Pulse Ox 98.2 F 75 19 133/88 98 01/28/18 12:00 01/28/18 14:57 01/28/18 12:00 01/28/18 14:57 01/28/18 06:00 Intake and Output: 01/28/18 01/28/18 06:59 18:59 Intake Total 240 Output Total 1100 Balance -860 - Medications Medications: Current Medications Acetaminophen (Tylenol 325mg Tab) 650 mg PO Q4 PRN PRN Reason: Fever >100.4 F Last Admin: 01/24/18 13:18 Dose: 650 mg Apixaban (Eliquis) 5 mg PO BID [facility] PRN Reason: Protocol Last Admin: 01/28/18 09:12 Dose: 5 mg Budesonide (Pulmicort Respules) 0.5 mg IH [id number] [facility] Last Admin: 01/28/18 07:51 Dose: 0.5 mg Famotidine (Pepcid) 40 mg PO HS [facility] Last Admin: 01/27/18 22:16 Dose: 40 mg Aztreonam (Azactam 1 Gm) 100 mls @ 100 mls/hr IVPB Q8 [facility] PRN Reason: Protocol Stop: 01/29/18 11:16 Last Admin: 01/28/18 14:58 Dose: 100 mls/hr Insulin Detemir (Levemir) 40 unit SC HS [facility] Last Admin: 01/27/18 22:16 Dose: 40 u Insulin Human Lispro (Humalog Low) 0 units SC ACHS [facility] PRN Reason: Protocol Last Admin: 01/28/18 12:58 Dose: Not Given Insulin Human Lispro (Humalog) 12 units SC AC [facility] Last Admin: 01/28/18 12:57 Dose: Not Given Ipratropium [place] (Atrovent) 0.5 mg IH [id number] [facility] Last Admin: 01/28/18 13:37 Dose: 0.5 mg Levalbuterol HCl (Xopenex) 1.25 mg IH Q2 PRN PRN Reason: Shortness of Breath Last Admin: 01/25/18 00:59 Dose: 1.25 mg Levalbuterol HCl (Xopenex) 1.25 mg IH [id number] [facility] Last Admin: 01/28/18 13:37 Dose: 1.25 mg Methimazole (Tapazole) 5 mg PO DAILY [facility] Last Admin: 01/27/18 10:55 Dose: 5 mg Prednisone (Prednisone Tab) 20 mg PO DAILY [facility] Last Admin: 01/28/18 09:17 Dose: 20 mg Propranolol HCl (Inderal) 40 mg PO TID [facility] Last Admin: 01/28/18 14:57 Dose: 40 mg Verapamil HCl (Verapamil Inj) 2.5 mg IVP Q6H PRN PRN Reason: for heart rate >130 Last Admin: 01/25/18 12:48 Dose: 2.5 mg Verapamil HCl (Calan Tab) 80 mg PO TID [facility] Last Admin: 01/28/18 14:57 Dose: 80 mg - Labs Labs: 01/28/18 06:30 01/28/18 06:30 PT 18.5 SECONDS (9.4-12.5) H 01/21/18 08:45 INR 1.59 01/21/18 08:45 APTT 28.5 Seconds (25.1-36.5) 01/21/18 08:45 - Constitutional Appears: Chronically Ill - Head Exam Head Exam: NORMAL INSPECTION - ENT Exam ENT Exam: Mucous Membranes Moist - Neck Exam Neck Exam: absent: Meningismus - Respiratory Exam Respiratory Exam: Decreased Breath Sounds - Cardiovascular Exam Cardiovascular Exam: +S1, +S2 - GI/Abdominal Exam GI & Abdominal Exam: Soft. absent: Tenderness Assessment and Plan - Assessment and Plan (Free Text) Plan: Assessment Severe sepsis with hypoxic respiratory failure due to left sided pyelonephritis with Klebsiella bacteremia on top of atrial fibrillation with rapid ventricular response atrial fibrillation on anticoagulation COPD obesity with BMI 31 Plan continue Azactam day 8; repeat blood cx are negative - should complete 10-14 days total therapy (Day 8 today) - can switch to PO antibiotics when ready for discharge will continue to monitor clinically while the patient is in the hospital
[2018-01-29] MEDS ORDERED: Digoxin 125 mcg (0.125 mg) Tab PO SCH (14:00)
[2018-01-29 14:55] VITALS: PULSE 118
--- NOTE | 2018-01-29 16:31 | CP.PCM.PN ---
<Surekha Thomson - Last Filed: 01/29/18 16:30> Subjective - Date & Time of Evaluation Date of Evaluation: 01/29/18 Time of Evaluation: 07:00 - Subjective Subjective: PGY-[address] Woodruff HR 100-120s over the weekend. Tolerated PT. No acute complain Objective - Vital Signs/Intake and Output Vital Signs (last 24 hours): Temp Pulse Resp BP Pulse Ox 98 F 118 H 20 126/88 98 01/29/18 12:00 01/29/18 14:51 01/29/18 12:00 01/29/18 14:51 01/29/18 06:00 Intake and Output: 01/29/18 01/29/18 06:59 18:59 Intake Total 500 Output Total 1200 Balance -700 - Medications Medications: Current Medications Acetaminophen (Tylenol 325mg Tab) 650 mg PO Q4 PRN PRN Reason: Fever >100.4 F Last Admin: 01/24/18 13:18 Dose: 650 mg Apixaban (Eliquis) 5 mg PO BID [facility] PRN Reason: Protocol Last Admin: 01/29/18 11:14 Dose: 5 mg Budesonide (Pulmicort Respules) 0.5 mg IH [id number] [facility] Last Admin: 01/29/18 08:46 Dose: 0.5 mg Digoxin (Digoxin) 0.125 mg PO 1400 [facility] Last Admin: 01/29/18 14:50 Dose: 0.125 mg Famotidine (Pepcid) 40 mg PO HS [facility] Last Admin: 01/28/18 22:09 Dose: 40 mg Insulin Detemir (Levemir) 40 unit SC HS [facility] Last Admin: 01/28/18 22:09 Dose: 40 u Insulin Human Lispro (Humalog Low) 0 units SC ACHS [facility] PRN Reason: Protocol Last Admin: 01/29/18 12:27 Dose: Not Given Insulin Human Lispro (Humalog) 12 units SC AC [facility] Last Admin: 01/29/18 12:27 Dose: Not Given Ipratropium [place] (Atrovent) 0.5 mg IH [id number] [facility] Last Admin: 01/29/18 14:20 Dose: 0.5 mg Levalbuterol HCl (Xopenex) 1.25 mg IH Q2 PRN PRN Reason: Shortness of Breath Last Admin: 01/25/18 00:59 Dose: 1.25 mg Levalbuterol HCl (Xopenex) 1.25 mg IH [id number] [facility] Last Admin: 01/29/18 14:20 Dose: 1.25 mg Methimazole (Tapazole) 5 mg PO DAILY [facility] Last Admin: 01/29/18 11:13 Dose: 5 mg Prednisone (Prednisone Tab) 10 mg PO DAILY [facility] Propranolol HCl (Inderal) 40 mg PO TID [facility] Last Admin: 01/29/18 14:50 Dose: 40 mg Verapamil HCl (Verapamil Inj) 2.5 mg IVP Q6H PRN PRN Reason: for heart rate >130 Last Admin: 01/25/18 12:48 Dose: 2.5 mg Verapamil HCl (Calan Tab) 80 mg PO TID [facility] Last Admin: 01/29/18 14:51 Dose: 80 mg - Labs Labs: 01/29/18 05:30 01/29/18 05:30 PT 18.5 SECONDS (9.4-12.5) H 01/21/18 08:45 INR 1.59 01/21/18 08:45 APTT 28.5 Seconds (25.1-36.5) 01/21/18 08:45 - Constitutional Appears: No Acute Distress - Head Exam Head Exam: ATRAUMATIC, NORMAL INSPECTION, NORMOCEPHALIC - Eye Exam Eye Exam: EOMI, Normal appearance, PERRL. absent: Scleral icterus Pupil Exam: NORMAL ACCOMODATION - ENT Exam ENT Exam: Mucous Membranes Moist - Neck Exam Additional comments: supple - Respiratory Exam Respiratory Exam: Decreased Breath Sounds (b/l lung bases), Clear to Ausculation Bilateral. absent: Rales, Rhonchi, Wheezes - Cardiovascular Exam Cardiovascular Exam: Irregular Rhythm, +S1, +S2 - GI/Abdominal Exam GI & Abdominal Exam: Soft, Normal Bowel Sounds. absent: Tenderness - Extremities Exam Extremities Exam: Normal Capillary Refill. absent: Calf Tenderness, Pedal Edema - Back Exam Back Exam: absent: CVA tenderness (L), CVA tenderness (R) - Neurological Exam Neurological Exam: Alert, Awake, Oriented x3 - Psychiatric Exam Psychiatric exam: Normal Affect, Normal Mood - Skin Skin Exam: Dry, Warm Assessment and Plan - Assessment and Plan (Free Text) Plan: Ms Navarror, 77F, PMH of CAD, atrial fibrillation on anticoagulation, COPD, obesity with BMI 31 came in to [facility] complaining of nausea/diarrhea, SOB, easy fatigability fx 3 days. She was also having burning sensation on urination as well as loose bowel movement. She has fever and leukocytosis on admission. She has Atrial fibrillation in rapid ventricular response. CT scan of the abdomen and pelvis was done which showed left sided perinephric stranding. She is in the ICU because of uncontrolled atrial fibrillation requiring cardizem gtt, now off the gtt and downgraded to telemetry. Urine culture (01/21) grew Klebsiella pneumonia. Blood culture (01/21) grew gram negative radha in aerobic bottle (1/2 bottles). She is on aztreonam and repeat blood culture (01/24) neg x 1d Severe sepsis, with atrial fibrillation with rapid ventricular response, due to gram neg bacteremia and pyelonephritis - improving Klebsiella bacteremia, likely from pyelonephritis left sided pyelonephritis, urine (+) Klebsiella - Diarrhea resolved. Fever and leukocytosis resolved. - Aztreonam, day __8__/ 10-14 days - Repeat culture (01/24) to monitor bacteremeia. - EKG: QT 450 - The positive Blood culture (01/21) has the same result as the urine culture. - Per ID, if QT is not prolong and both blood/urine culture match, may switch patient to PO cipro Rapid a fib on anticoagulation, likely from sepsis/infection. had ruled out secondary cause from hyperthyroid - improving - 2 second pause last week - On verapamil, Ineral; Add digioxin today - HR more control 100s-120s - on eliquis. verapamil IVP as needed if HR > 130. Dyspnea due to fluid overload and decreased forward flow from a fib - resolved after D/C IVF. Hx COPD - Switch duoneb to xopenex/ipratropium. Taper prednisone to 10 daily tomorrow. continue budesonide DM2, A1C 9.2, uncontrolled. Insulin dependent. Hypoglycemic episode resolved. - On Levemi, Humalog AC, ISSS, diabetic education Worsening of urinary incontinence, likely due to pyelonephritis. Dr Estrada on consult. - On purwick; follow up outpatient For hyperthryoid, TSH normal, continnue methimazole Diarrhea likely due to intraabdominal/retroperitoneal irritation from pyelonephritis - resolved dehydration - resolved mild prerenal azotemia - resolved Hx COPD Echo 2018 (EF 62, RVSP 43) Penicillin and clarithromycin allergy DNR/DNI PVX - eliquis, pepcid for high risk of GI stress ulcer from sepsis Discharge planning: PT recommend [facility]. HR is not controlled. s/r/d/w Dr Woodruff <Tod Woodruff S - Last Filed: 01/29/18 22:01> Objective - Vital Signs/Intake and Output Vital Signs (last 24 hours): Temp Pulse Resp BP Pulse Ox 98.2 F 94 H 20 112/74 98 01/29/18 17:38 01/29/18 18:24 01/29/18 17:38 01/29/18 18:24 01/29/18 06:00 Intake and Output: 01/29/18 01/30/18 18:59 06:59 Intake Total 1540 Output Total 1800 Balance -260 - Medications Medications: Current Medications Acetaminophen (Tylenol 325mg Tab) 650 mg PO Q4 PRN PRN Reason: Fever >100.4 F Last Admin: 01/24/18 13:18 Dose: 650 mg Apixaban (Eliquis) 5 mg PO BID [facility] PRN Reason: Protocol Last Admin: 01/29/18 18:23 Dose: 5 mg Budesonide (Pulmicort Respules) 0.5 mg IH [id number] [facility] Last Admin: 01/29/18 19:53 Dose: 0.5 mg Digoxin (Digoxin) 0.125 mg PO 1400 [facility] Last Admin: 01/29/18 14:50 Dose: 0.125 mg Famotidine (Pepcid) 40 mg PO HS [facility] Last Admin: 01/28/18 22:09 Dose: 40 mg Insulin Detemir (Levemir) 40 unit SC HS [facility] Last Admin: 01/28/18 22:09 Dose: 40 u Insulin Human Lispro (Humalog Low) 0 units SC ACHS [facility] PRN Reason: Protocol Last Admin: 01/29/18 17:44 Dose: 4 units Insulin Human Lispro (Humalog) 12 units SC AC [facility] Last Admin: 01/29/18 17:45 Dose: 12 unit Ipratropium [place] (Atrovent) 0.5 mg IH [id number] [facility] Last Admin: 08/13/18 19:53 Dose: 0.5 mg Levalbuterol HCl (Xopenex) 1.25 mg IH Q2 PRN PRN Reason: Shortness of Breath Last Admin: 01/25/18 00:59 Dose: 1.25 mg Levalbuterol HCl (Xopenex) 1.25 mg IH [id number] [facility] Last Admin: 01/29/18 19:54 Dose: 1.25 mg Methimazole (Tapazole) 5 mg PO DAILY [facility] Last Admin: 01/29/18 11:13 Dose: 5 mg Prednisone (Prednisone Tab) 10 mg PO DAILY [facility] Propranolol HCl (Inderal) 40 mg PO TID [facility] Last Admin: 01/29/18 18:24 Dose: 40 mg Verapamil HCl (Verapamil Inj) 2.5 mg IVP Q6H PRN PRN Reason: for heart rate >130 Last Admin: 01/25/18 12:48 Dose: 2.5 mg Verapamil HCl (Calan Tab) 80 mg PO TID [facility] Last Admin: 01/29/18 18:23 Dose: 80 mg - Labs Labs: 01/29/18 05:30 01/29/18 05:30 PT 18.5 SECONDS (9.4-12.5) H 01/21/18 08:45 INR 1.59 01/21/18 08:45 APTT 28.5 Seconds (25.1-36.5) 01/21/18 08:45 Assessment and Plan - Assessment and Plan (Free Text) Plan: Pt seen and examined. I have reviewed the note of the medical affairs leader and agree with it. I have discussed the assessment and plan with the resident. I have reviewed the patient's labs and medications. Pt with imprved heart rate. Controlled on Dig and Verapamil. Last day of Abx. Pt wants to go home and not go to [facility].
[2018-01-29] MEDS: Insulin Detemir 100 units/ml Vial (Levemir) SC SCH (21:57)
[2018-01-30] MEDS: Ipratropium 0.02% Inhal Soln (0.5 mg/2.5 ml) UD IH SCH ×2 (03:02→08:34)
[2018-01-30] MEDS: Levalbuterol 1.25 MG/3 ML Inhal Soln UD IH SCH ×2 (03:02→08:33)
[2018-01-30 06:23] VITALS: O2SAT 95
--- NOTE | 2018-01-30 07:32 | CP.PCM.PN ---
Subjective - Date & Time of Evaluation Date of Evaluation: 01/30/18 Time of Evaluation: 06:30 - Subjective Subjective: Awake, alert, no distress, going to [facility] Reason for consultation and follow up: Cardiac evaluation of Rapid ventricular atrial fibrillation, history of chronic atrial fibrillation,on Eliquis COPD, coronary artery disease, diabetes mellitus, admitted for urinary tract infection Seen and examined by me and Objective - Vital Signs/Intake and Output Vital Signs (last 24 hours): Temp Pulse Resp BP Pulse Ox 97.9 F 95 H 18 147/93 H 95 01/30/18 06:00 01/30/18 06:00 01/30/18 06:00 01/30/18 06:00 01/30/18 06:00 Intake and Output: 01/30/18 01/30/18 06:59 18:59 Intake Total 360 Output Total 700 Balance -340 - Medications Medications: Current Medications Acetaminophen (Tylenol 325mg Tab) 650 mg PO Q4 PRN PRN Reason: Fever >100.4 F Last Admin: 01/24/18 13:18 Dose: 650 mg Apixaban (Eliquis) 5 mg PO BID COUNTS INCLUDE 234 BEDS AT THE [facility] PRN Reason: Protocol Last Admin: 01/29/18 18:23 Dose: 5 mg Budesonide (Pulmicort Respules) 0.5 mg IH [id number] COUNTS INCLUDE 234 BEDS AT THE [facility] Last Admin: 01/29/18 19:53 Dose: 0.5 mg Digoxin (Digoxin) 0.125 mg PO 1400 COUNTS INCLUDE 234 BEDS AT THE [facility] Last Admin: 01/29/18 14:50 Dose: 0.125 mg Famotidine (Pepcid) 40 mg PO HS COUNTS INCLUDE 234 BEDS AT THE [facility] Last Admin: 01/29/18 21:57 Dose: 40 mg Insulin Detemir (Levemir) 40 unit SC HS COUNTS INCLUDE 234 BEDS AT THE [facility] Last Admin: 01/29/18 21:57 Dose: 40 u Insulin Human Lispro (Humalog Low) 0 units SC ACHS COUNTS INCLUDE 234 BEDS AT THE [facility] PRN Reason: Protocol Last Admin: 01/29/18 21:57 Dose: Not Given Insulin Human Lispro (Humalog) 12 units SC AC COUNTS INCLUDE 234 BEDS AT THE [facility] Last Admin: 01/29/18 17:45 Dose: 12 unit Ipratropium [place] (Atrovent) 0.5 mg IH [id number] COUNTS INCLUDE 234 BEDS AT THE [facility] Last Admin: 01/30/18 03:02 Dose: Not Given Levalbuterol HCl (Xopenex) 1.25 mg IH Q2 PRN PRN Reason: Shortness of Breath Last Admin: 01/25/18 00:59 Dose: 1.25 mg Levalbuterol HCl (Xopenex) 1.25 mg IH [id number] COUNTS INCLUDE 234 BEDS AT THE [facility] Last Admin: 01/30/18 03:02 Dose: Not Given Methimazole (Tapazole) 5 mg PO DAILY COUNTS INCLUDE 234 BEDS AT THE [facility] Last Admin: 01/29/18 11:13 Dose: 5 mg Prednisone (Prednisone Tab) 10 mg PO DAILY COUNTS INCLUDE 234 BEDS AT THE [facility] Propranolol HCl (Inderal) 40 mg PO TID COUNTS INCLUDE 234 BEDS AT THE [facility] Last Admin: 01/29/18 18:24 Dose: 40 mg Verapamil HCl (Verapamil Inj) 2.5 mg IVP Q6H PRN PRN Reason: for heart rate >130 Last Admin: 01/25/18 12:48 Dose: 2.5 mg Verapamil HCl (Calan Tab) 80 mg PO TID COUNTS INCLUDE 234 BEDS AT THE [facility] Last Admin: 01/29/18 18:23 Dose: 80 mg - Labs Labs: 01/29/18 05:30 01/29/18 05:30 PT 18.5 SECONDS (9.4-12.5) H 01/21/18 08:45 INR 1.59 01/21/18 08:45 APTT 28.5 Seconds (25.1-36.5) 01/21/18 08:45 - Constitutional Appears: No Acute Distress - Eye Exam Eye Exam: Normal appearance - ENT Exam ENT Exam: Mucous Membranes Moist - Respiratory Exam Respiratory Exam: Decreased Breath Sounds, Clear to Ausculation Bilateral, NORMAL BREATHING PATTERN - Cardiovascular Exam Cardiovascular Exam: +S1, +S2 - GI/Abdominal Exam GI & Abdominal Exam: Soft, Normal Bowel Sounds - Extremities Exam Extremities Exam: Normal Capillary Refill - Neurological Exam Neurological Exam: Alert, Awake, Oriented x3 - Psychiatric Exam Psychiatric exam: Normal Affect - Skin Skin Exam: Dry, Warm Assessment and Plan - Assessment and Plan (Free Text) Assessment: A 77 year old female who came in to the ER due to weakness, fatigue and shortness of breath. Had rapid ventricular rate strial fibrillation in ER due to sepsis,IV Lopressor,Diqoxin and Cardizem drip given. transferred to ICU for further management. History of coronary artery disease with stenting, last cardiac cath at [facility] in 2012 showed patent stent in LAD, disease in diagonal, small vessel.ECHO 2017-LVEF 60 % normal ventricular function. history of COPD, diabetes mellitus, chronic Afib on Eliquis,hyperthyroidism, Stabilized heart rate in ICU and now transferred to telemetry. Plan: Started digoxin yesterday, heart rate controlled to 90's Blood pressure stable Cardiac status stable Clinically improved On Eliquis 5 mg BID, Inderal 40 mg TID, Calan 80 mg TID Digoxin 0.125 mg daily Continue IV antibiotics per ID Continue current medications Continue current treatment Discharge planning Will follow up Plan and treatment discussed with Dr. Modi
[2018-01-30 08:13] LABS: BASO # 0.03 K/mm3 (0.0-2.0); BASO % 0.2 % (0.0-3.0); EOS # 0.2 (0.0-0.7); GRAN # 11.41 (1.4-6.5); GRAN % 67.7 % (50.0-68.0); HEMOGLOBIN 13.8 g/dL (12.0-16.0); LYMPH # 3.7 (1.2-3.4); LYMPH % 21.9 % (22.0-35.0); MEAN CELL VOLUME 92.8 fl (80.0-105.0); MEAN CORPUSCULAR HEMOGLOBIN 32.1 pg (25.0-35.0); MEAN CORPUSCULAR HGB CONC 34.6 g/dl (31.0-37.0); MEAN PLATELET VOLUME 10.2 fl (7.0-11.0); MONO # 1.6 (0.1-0.6); MONO % 9.2 % (1.0-6.0); RBC 4.3 10^6/uL (3.5-6.1); RED CELL DISTRIBUTION WIDTH 12.8 % (11.5-14.5); WHITE BLOOD COUNT 16.9 10^3/ul (4.5-11.0)
[2018-01-30 08:28] LABS: ALB/GLOB RATIO 1.2 (1.1-1.8); ALBUMIN 3.3 g/dL (3.0-4.8); ALT/SGPT 68 U/L (7-56); AST/SGOT 31 U/L (14-36); BLOOD UREA NITROGEN 21 mg/dL (7-21); GFR AFRICAN-AMERICAN > 60; GFR NON-AFRICAN AMERICAN > 60
[2018-01-30] MEDS: Insulin Lispro (humaLOG) LOW Coverage SC SCH ×2 (08:29→12:02)
[2018-01-30] MEDS: Insulin Lispro 1 UNITS/0.01 ML SC SCH ×2 (08:29→12:02)
[2018-01-30] MEDS: Budesonide 0.5 mg/2 ml Inhal Susp UD IH SCH (08:33)
[2018-01-30] MEDS ORDERED: Aztreonam 1 Gm in NS 100mL 100 ML IVPB SCH (09:15)
--- NOTE | 2018-01-30 09:27 | CP.PCM.DIS ---
<Surekha Thomson - Last Filed: 01/30/18 15:21> Provider - Provider Date of Admission: 01/21/18 11:41 Attending physician: Tod Woodruff MD Time Spent in preparation of Discharge (in minutes): 30 Diagnosis - Discharge Diagnosis (1) Pyelonephritis Status: Acute (2) Bacteremia due to Gram-negative bacteria Status: Acute (3) Atrial fibrillation Status: Acute (4) COPD exacerbation Status: Acute (5) Rapid atrial fibrillation Status: Acute (6) Uncontrolled diabetes mellitus Status: Acute Hospital Course - Lab Results Lab Results: Micro Results 01/24/18 13:00 Blood-Venous Blood Culture - Final NO GROWTH AFTER 5 DAYS 01/24/18 13:00 Blood-Venous Gram Stain - Final TEST NOT PERFORMED 01/24/18 12:30 Blood-Venous Blood Culture - Final NO GROWTH AFTER 5 DAYS 01/24/18 12:30 Blood-Venous Gram Stain - Final TEST NOT PERFORMED 01/21/18 14:41 Naris MRSA Culture (Admit) - Final MRSA NOT DETECTED Most Recent Lab Values WBC 16.9 10^3/ul (4.5-11.0) H D 01/30/18 08:00 RBC 4.30 10^6/uL (3.5-6.1) 01/30/18 08:00 Hgb 13.8 g/dL (12.0-16.0) 01/30/18 08:00 Hct 39.9 % (36.0-48.0) 01/30/18 08:00 MCV 92.8 fl (80.0-105.0) 01/30/18 08:00 MCH 32.1 pg (25.0-35.0) 01/30/18 08:00 MCHC 34.6 g/dl (31.0-37.0) 01/30/18 08:00 RDW 12.8 % (11.5-14.5) 01/30/18 08:00 Plt Count 550 10^3/uL (120.0-450.0) H 01/30/18 08:00 MPV 10.2 fl (7.0-11.0) 01/30/18 08:00 Gran % 67.7 % (50.0-68.0) 01/30/18 08:00 Lymph % (Auto) 21.9 % (22.0-35.0) L 01/30/18 08:00 [place] % (Auto) 9.2 % (1.0-6.0) H 01/30/18 08:00 Eos % (Auto) 1.0 % (1.5-5.0) L 01/30/18 08:00 Baso % (Auto) 0.2 % (0.0-3.0) 01/30/18 08:00 Gran # 11.41 (1.4-6.5) H 01/30/18 08:00 Lymph # (Auto) 3.7 (1.2-3.4) H 01/30/18 08:00 [place] # (Auto) 1.6 (0.1-0.6) H 01/30/18 08:00 Eos # (Auto) 0.2 (0.0-0.7) 01/30/18 08:00 Baso # (Auto) 0.03 K/mm3 (0.0-2.0) 01/30/18 08:00 PT 18.5 SECONDS (9.4-12.5) H 01/21/18 08:45 INR 1.59 01/21/18 08:45 APTT 28.5 Seconds (25.1-36.5) 01/21/18 08:45 Sodium 136 mmol/L (132-148) 01/30/18 08:00 Potassium 4.6 mmol/L (3.6-5.0) 01/30/18 08:00 Chloride 95 mmol/L (98-107) L 01/30/18 08:00 Carbon Dioxide 34 mmol/L (21-33) H 01/30/18 08:00 Anion Gap 12 (10-20) 01/30/18 08:00 BUN 21 mg/dL (7-21) 01/30/18 08:00 Creatinine 0.5 mg/dl (0.7-1.2) L 01/30/18 08:00 Est GFR ( Amer) > 60 01/30/18 08:00 Est GFR (Non-Af Amer) > 60 01/30/18 08:00 POC Glucose (mg/dL) 133 mg/dL (65-110) H 01/30/18 07:17 Random Glucose 116 mg/dL (70-110) H 01/30/18 08:00 Hemoglobin A1c 9.2 % (4.2-6.5) H 01/23/18 06:00 Calcium 10.0 mg/dL (8.4-10.5) 01/30/18 08:00 Phosphorus 2.8 mg/dL (2.5-4.5) 01/26/18 05:30 Magnesium 2.0 mg/dL (1.7-2.2) 01/30/18 08:00 Total Bilirubin 0.3 mg/dL (0.2-1.3) 01/30/18 08:00 AST 31 U/L (14-36) 01/30/18 08:00 ALT 68 U/L (7-56) H 01/30/18 08:00 Alkaline Phosphatase 91 U/L (38-126) 01/30/18 08:00 Troponin I 0.02 ng/mL 01/21/18 08:45 Total Protein 6.1 g/dL (5.8-8.3) 01/30/18 08:00 Albumin 3.3 g/dL (3.0-4.8) 01/30/18 08:00 Globulin 2.8 gm/dL 01/30/18 08:00 Albumin/Globulin Ratio 1.2 (1.1-1.8) 01/30/18 08:00 Triglycerides 196 mg/dL (35-160) H 01/23/18 06:00 Cholesterol 123 mg/dL (130-200) L 01/23/18 06:00 LDL Cholesterol Direct 66 mg/dL (0-129) 01/23/18 06:00 HDL Cholesterol 16 mg/dL (29-60) L 01/23/18 06:00 Lipase 28 U/L (23-300) 01/21/18 08:45 Procalcitonin 0.47 NG/ML (0.19-0.49) 01/22/18 11:00 TSH 3rd Generation 3.15 mIU/mL (0.46-4.68) 01/26/18 05:30 Urine Color Yellow (YELLOW) 01/21/18 10:20 Urine Appearance Sl cloudy (CLEAR) 01/21/18 10:20 Urine pH 6.0 (4.7-8.0) 01/21/18 10:[address] 1.025 (1.005-1.035) 01/21/18 10:20 Urine Protein 100 mg/dL (<30 mg/dL) H 01/21/18 10:20 Urine Glucose (UA) >=1000 mg/dL (NEGATIVE) 01/21/18 10:20 Urine Ketones 40 mg/dL (NEGATIVE) H 01/21/18 10:20 Urine Blood Moderate (NEGATIVE) H 01/21/18 10:20 Urine Nitrate Negative (NEGATIVE) 01/21/18 10:20 Urine Bilirubin Negative (NEGATIVE) 01/21/18 10:20 Urine Urobilinogen 0.2 E.U./dL (<1 E.U./dL) 01/21/18 10:20 Ur Leukocyte Esterase Small Rk/uL (NEGATIVE) H 01/21/18 10:20 Urine RBC 1 - 3 /hpf (0-2) 01/21/18 10:20 Urine WBC Tntc /hpf (0-6) 01/21/18 10:20 Ur Epithelial Cells 0 - 2 /hpf (0-5) 01/21/18 10:20 Urine Bacteria Small (NEG) 01/21/18 10:20 Digoxin 1.3 ng/mL (0.8-2.0) 01/26/18 05:30 - Hospital Course Hospital Course: PGY-[address] Woodruff Ms Parishrehr, 77F, PMH of CAD, atrial fibrillation on anticoagulation, COPD, obesity with BMI 31 came in to [facility] complaining of nausea/diarrhea, SOB, easy fatigability fx 3 days. She was also having burning sensation on urination as well as loose bowel movement. She has fever and leukocytosis on admission. She has Atrial fibrillation in rapid ventricular response. CT scan of the abdomen and pelvis was done which showed left sided perinephric stranding. She is in the ICU because of uncontrolled atrial fibrillation requiring cardizem gtt, now off the gtt and downgraded to telemetry. Urine culture (01/21) grew Klebsiella pneumonia. Blood culture (01/21) grew gram negative radha in aerobic bottle (1/2 bottles). She is on aztreonam and repeat blood culture (01/24) neg x 1d. Severe sepsis, with atrial fibrillation with rapid ventricular response, due to gram neg bacteremia and pyelonephritis - resolve Klebsiella bacteremia, likely from pyelonephritis left sided pyelonephritis, urine (+) Klebsiella - Diarrhea resolved. Fever and leukocytosis resolved. - Aztreonam, day __10__. Per ID specialist, pt will be discharge to [facility] for 7 more days of Aztreonam - Repeat culture (01/24) to monitor bacteremeia. - EKG: QT 450 - The positive Blood culture (01/21) has the same result as the urine culture. Rapid a fib on anticoagulation, likely from sepsis/infection. had ruled out secondary cause from hyperthyroid - improving, more controlled - 2 second pause last week - resolved - On verapamil, Ineral; Add digioxin yesterday - HR more control 100s-120s - on eliquis. - No longer requires IV varapamil push Dyspnea due to fluid overload and decreased forward flow from a fib - resolved after D/C IVF. Hx COPD - Switch duoneb to xopenex/ipratropium. Continue taper prednisone at [facility]. continue budesonide DM2, A1C 9.2, uncontrolled. Insulin dependent. Hypoglycemic episode resolved. - On Levemi, Humalog AC, ISSS, diabetic education Worsening of urinary incontinence, likely due to pyelonephritis. Dr Estrada on consult. - On purwick; follow up outpatient For hyperthryoid, TSH normal, continnue methimazole Diarrhea likely due to intraabdominal/retroperitoneal irritation from pyelonephritis - resolved dehydration - resolved mild prerenal azotemia - resolved Hx COPD Echo 2018 (EF 62, RVSP 43) Penicillin and clarithromycin allergy DNR/DNI Deconditioning - pt will go to [facility] for rehab, physical therapy, and continual IV antibiotics. At discharge pt is stable, VS stable. s/r/d/w Dr Woodruff Discharge Exam - Head Exam Head Exam: ATRAUMATIC, NORMAL INSPECTION, NORMOCEPHALIC - Eye Exam Eye Exam: EOMI, Normal appearance, PERRL Pupil Exam: NORMAL ACCOMODATION - ENT Exam ENT Exam: Mucous Membranes Moist - Neck Exam Additional comments: supple - Respiratory Exam Respiratory Exam: Clear to PA & Lateral, NORMAL BREATHING PATTERN. absent: Rales, Rhonchi, Wheezes - Cardiovascular Exam Cardiovascular Exam: Irregular Rhythm, +S1, +S2. absent: Tachycardia - GI/Abdominal Exam GI & Abdominal Exam: Normal Bowel Sounds, Soft. absent: Distended, Firm, Guarding, Rigid, Tenderness - Extremities Exam Extremities exam: normal capillary refill, pedal pulses present Additional comments: on purwick - Back Exam Back exam: absent: CVA tenderness (L), CVA tenderness (R) - Neurological Exam Neurological exam: Alert, CN II-XII Intact, Oriented x3 Additional comments: move all extremities sensory and motor grossly intact - Psychiatric Exam Psychiatric exam: Normal Affect, Normal Mood - Skin Skin Exam: Dry, Warm Discharge Plan - Discharge Medications Prescriptions: Aztreonam 1 Gm in NS 100mL [Azactam 1 gm] 1 gm IV Q8 7 Days ml predniSONE [predniSONE Tab] See Taper PO DAILY #2 tab - Follow Up Plan Condition: CRITICAL Disposition: TRANSF TO SNF Instructions: Urinary Tract Infections in Adults, Atrial Fibrillation, Hyperglycemia, Adult (DC) Additional Instructions: Finish Aztreonam x 7 more days Continue prednisone taper. May discontinue pepcid after finishing prednisone. Off sotalol, lasix, cardizem New meds: digoxin, verapamil, inderal Referrals: Gail Modi MD [Staff Provider] - 1 Week Tod Woodruff MD [Family Provider] - 2 Week Alfonso Estrada MD [Staff Provider] - 2 Week <Tod Woodruff - Last Filed: 01/30/18 19:09> Provider - Provider Date of Admission: 01/21/18 11:41 Attending physician: Tod Woodruff MD Hospital Course - Lab Results Lab Results: Micro Results 01/24/18 13:00 Blood-Venous Blood Culture - Final NO GROWTH AFTER 5 DAYS 01/24/18 13:00 Blood-Venous Gram Stain - Final TEST NOT PERFORMED 01/24/18 12:30 Blood-Venous Blood Culture - Final NO GROWTH AFTER 5 DAYS 01/24/18 12:30 Blood-Venous Gram Stain - Final TEST NOT PERFORMED 01/21/18 14:41 Naris MRSA Culture (Admit) - Final MRSA NOT DETECTED Most Recent Lab Values WBC 16.9 10^3/ul (4.5-11.0) H D 01/30/18 08:00 RBC 4.30 10^6/uL (3.5-6.1) 01/30/18 08:00 Hgb 13.8 g/dL (12.0-16.0) 01/30/18 08:00 Hct 39.9 % (36.0-48.0) 01/30/18 08:00 MCV 92.8 fl (80.0-105.0) 01/30/18 08:00 MCH 32.1 pg (25.0-35.0) 01/30/18 08:00 MCHC 34.6 g/dl (31.0-37.0) 01/30/18 08:00 RDW 12.8 % (11.5-14.5) 01/30/18 08:00 Plt Count 550 10^3/uL (120.0-450.0) H 01/30/18 08:00 MPV 10.2 fl (7.0-11.0) 01/30/18 08:00 Gran % 67.7 % (50.0-68.0) 01/30/18 08:00 Lymph % (Auto) 21.9 % (22.0-35.0) L 01/30/18 08:00 [place] % (Auto) 9.2 % (1.0-6.0) H 01/30/18 08:00 Eos % (Auto) 1.0 % (1.5-5.0) L 01/30/18 08:00 Baso % (Auto) 0.2 % (0.0-3.0) 01/30/18 08:00 Gran # 11.41 (1.4-6.5) H 01/30/18 08:00 Lymph # (Auto) 3.7 (1.2-3.4) H 01/30/18 08:00 [place] # (Auto) 1.6 (0.1-0.6) H 01/30/18 08:00 Eos # (Auto) 0.2 (0.0-0.7) 01/30/18 08:00 Baso # (Auto) 0.03 K/mm3 (0.0-2.0) 01/30/18 08:00 PT 18.5 SECONDS (9.4-12.5) H 01/21/18 08:45 INR 1.59 01/21/18 08:45 APTT 28.5 Seconds (25.1-36.5) 01/21/18 08:45 Sodium 136 mmol/L (132-148) 01/30/18 08:00 Potassium 4.6 mmol/L (3.6-5.0) 01/30/18 08:00 Chloride 95 mmol/L (98-107) L 01/30/18 08:00 Carbon Dioxide 34 mmol/L (21-33) H 01/30/18 08:00 Anion Gap 12 (10-20) 01/30/18 08:00 BUN 21 mg/dL (7-21) 01/30/18 08:00 Creatinine 0.5 mg/dl (0.7-1.2) L 01/30/18 08:00 Est GFR ( Amer) > 60 01/30/18 08:00 Est GFR (Non-Af Amer) > 60 01/30/18 08:00 POC Glucose (mg/dL) 149 mg/dL (65-110) H 01/30/18 11:08 Random Glucose 116 mg/dL (70-110) H 01/30/18 08:00 Hemoglobin A1c 9.2 % (4.2-6.5) H 01/23/18 06:00 Calcium 10.0 mg/dL (8.4-10.5) 01/30/18 08:00 Phosphorus 2.8 mg/dL (2.5-4.5) 01/26/18 05:30 Magnesium 2.0 mg/dL (1.7-2.2) 01/30/18 08:00 Total Bilirubin 0.3 mg/dL (0.2-1.3) 01/30/18 08:00 AST 31 U/L (14-36) 01/30/18 08:00 ALT 68 U/L (7-56) H 01/30/18 08:00 Alkaline Phosphatase 91 U/L (38-126) 01/30/18 08:00 Troponin I 0.02 ng/mL 01/21/18 08:45 Total Protein 6.1 g/dL (5.8-8.3) 01/30/18 08:00 Albumin 3.3 g/dL (3.0-4.8) 01/30/18 08:00 Globulin 2.8 gm/dL 01/30/18 08:00 Albumin/Globulin Ratio 1.2 (1.1-1.8) 01/30/18 08:00 Triglycerides 196 mg/dL (35-160) H 01/23/18 06:00 Cholesterol 123 mg/dL (130-200) L 01/23/18 06:00 LDL Cholesterol Direct 66 mg/dL (0-129) 01/23/18 06:00 HDL Cholesterol 16 mg/dL (29-60) L 01/23/18 06:00 Lipase 28 U/L (23-300) 01/21/18 08:45 Procalcitonin 0.47 NG/ML (0.19-0.49) 01/22/18 11:00 TSH 3rd Generation 3.15 mIU/mL (0.46-4.68) 01/26/18 05:30 Urine Color Yellow (YELLOW) 01/21/18 10:20 Urine Appearance Sl cloudy (CLEAR) 01/21/18 10:20 Urine pH 6.0 (4.7-8.0) 01/21/18 10:[address] 1.025 (1.005-1.035) 01/21/18 10:20 Urine Protein 100 mg/dL (<30 mg/dL) H 01/21/18 10:20 Urine Glucose (UA) >=1000 mg/dL (NEGATIVE) 01/21/18 10:20 Urine Ketones 40 mg/dL (NEGATIVE) H 01/21/18 10:20 Urine Blood Moderate (NEGATIVE) H 01/21/18 10:20 Urine Nitrate Negative (NEGATIVE) 01/21/18 10:20 Urine Bilirubin Negative (NEGATIVE) 01/21/18 10:20 Urine Urobilinogen 0.2 E.U./dL (<1 E.U./dL) 01/21/18 10:20 Ur Leukocyte Esterase Small Rk/uL (NEGATIVE) H 01/21/18 10:20 Urine RBC 1 - 3 /hpf (0-2) 01/21/18 10:20 Urine WBC Tntc /hpf (0-6) 01/21/18 10:20 Ur Epithelial Cells 0 - 2 /hpf (0-5) 01/21/18 10:20 Urine Bacteria Small (NEG) 01/21/18 10:20 Digoxin 1.3 ng/mL (0.8-2.0) 01/26/18 05:30 - Hospital Course Hospital Course: Pt seen and examined. I have reviewed the note of the medical esthetician and agree with it. I have discussed the assessment and plan with the resident. I have reviewed the patient's labs and medications. Pt with sepsis with pyelonephritis. She will continue with Abx. She has agreed to go to [facility]. She initially wanted to go home. She is DNR>
[2018-01-30] MEDS: methIMAzole 5 MG TAB PO SCH (10:20)
[2018-01-30 12:20] VITALS: BP 124/84; PULSE 62; RESP 19; TEMP 98
--- NOTE | 2018-01-30 12:38 | CP.PCM.PN ---
Subjective - Date & Time of Evaluation Date of Evaluation: 01/30/18 Time of Evaluation: 08:35 - Subjective Subjective: Comfortable in bed, no dysuria, no flank pain, no abdominal pain, no nausea, no diarrhea, no chest palpitations. Objective - Vital Signs/Intake and Output Vital Signs (last 24 hours): Temp Pulse Resp BP Pulse Ox 98.0 F 69 19 119/69 98 01/29/18 06:00 01/29/18 11:14 01/29/18 06:00 01/29/18 11:14 01/29/18 06:00 Intake and Output: 01/29/18 01/29/18 06:59 18:59 Intake Total 500 Output Total 1200 Balance -700 - Medications Medications: Current Medications Acetaminophen (Tylenol 325mg Tab) 650 mg PO Q4 PRN PRN Reason: Fever >100.4 F Last Admin: 01/24/18 13:18 Dose: 650 mg Apixaban (Eliquis) 5 mg PO BID MIRNA PRN Reason: Protocol Last Admin: 01/29/18 11:14 Dose: 5 mg Budesonide (Pulmicort Respules) 0.5 mg IH [id number] [facility] Last Admin: 01/29/18 08:46 Dose: 0.5 mg Digoxin (Digoxin) 0.125 mg PO 1400 MIRNA Famotidine (Pepcid) 40 mg PO HS [facility] Last Admin: 01/28/18 22:09 Dose: 40 mg Insulin Detemir (Levemir) 40 unit SC HS [facility] Last Admin: 01/28/18 22:09 Dose: 40 u Insulin Human Lispro (Humalog Low) 0 units SC ACHS [facility] PRN Reason: Protocol Last Admin: 01/29/18 08:13 Dose: Not Given Insulin Human Lispro (Humalog) 12 units SC AC [facility] Last Admin: 01/29/18 08:31 Dose: Not Given Ipratropium [place] (Atrovent) 0.5 mg IH [id number] [facility] Last Admin: 01/29/18 08:46 Dose: 0.5 mg Levalbuterol HCl (Xopenex) 1.25 mg IH Q2 PRN PRN Reason: Shortness of Breath Last Admin: 01/25/18 00:59 Dose: 1.25 mg Levalbuterol HCl (Xopenex) 1.25 mg IH [id number] [facility] Last Admin: 01/29/18 08:46 Dose: 1.25 mg Methimazole (Tapazole) 5 mg PO DAILY [facility] Last Admin: 01/29/18 11:13 Dose: 5 mg Prednisone (Prednisone Tab) 20 mg PO DAILY [facility] Last Admin: 01/29/18 11:13 Dose: 20 mg Propranolol HCl (Inderal) 40 mg PO TID [facility] Last Admin: 01/29/18 11:14 Dose: 40 mg Verapamil HCl (Verapamil Inj) 2.5 mg IVP Q6H PRN PRN Reason: for heart rate >130 Last Admin: 01/25/18 12:48 Dose: 2.5 mg Verapamil HCl (Calan Tab) 80 mg PO TID [facility] Last Admin: 01/29/18 11:14 Dose: 80 mg - Labs Labs: 01/29/18 05:30 01/29/18 05:30 PT 18.5 SECONDS (9.4-12.5) H 01/21/18 08:45 INR 1.59 01/21/18 08:45 APTT 28.5 Seconds (25.1-36.5) 01/21/18 08:45 - Constitutional Appears: Non-toxic, Chronically Ill - Head Exam Head Exam: NORMAL INSPECTION - ENT Exam ENT Exam: Mucous Membranes Moist - Neck Exam Neck Exam: absent: Lymphadenopathy, Meningismus - Respiratory Exam Respiratory Exam: Decreased Breath Sounds. absent: Rales - Cardiovascular Exam Cardiovascular Exam: +S1, +S2 - GI/Abdominal Exam GI & Abdominal Exam: Soft. absent: Tenderness - Back Exam Back Exam: absent: CVA tenderness (L), CVA tenderness (R) Assessment and Plan - Assessment and Plan (Free Text) Plan: Assessment Severe sepsis with hypoxic respiratory failure due to left sided pyelonephritis with Klebsiella bacteremia on top of atrial fibrillation with rapid ventricular response, clinically improving atrial fibrillation on anticoagulation COPD obesity with BMI 31 Plan continue Azactam day 9; repeat blood cx are negative - should complete 10-14 days total therapy (Day 9 today) - can switch to PO antibiotics when ready for discharge
== END 2018-01-30 13:35 | DRG 871 ==
LOC: ED 08:14 → ERH 11:41 → CCU 13:42 → 2RNO 01-24 19:12
PROVIDERS: ADMIT Internal Medicine Nephrology; ATTEND Internal Medicine Nephrology
DX: A41.9 Sepsis, unspecified organism (principal); E11.10 Type 2 diabetes mellitus with ketoacidosis without coma; J96.91 Respiratory failure, unspecified with hypoxia; N12 Tubulo-interstitial nephritis, not specified as acute or chronic; J44.1 Chronic obstructive pulmonary disease with (acute) exacerbation; I48.2 Chronic atrial fibrillation; B96.1 Klebsiella pneumoniae [K. pneumoniae] as the cause of diseases classified elsewhere; E86.0 Dehydration; E05.90 Thyrotoxicosis, unspecified without thyrotoxic crisis or storm; I12.9 Hypertensive chronic kidney disease with stage 1 through stage 4 chronic kidney disease, or unspecified chronic kidney disease; E11.22 Type 2 diabetes mellitus with diabetic chronic kidney disease; N18.9 Chronic kidney disease, unspecified; R65.20 Severe sepsis without septic shock; I25.10 Atherosclerotic heart disease of native coronary artery without angina pectoris; I27.20 Pulmonary hypertension, unspecified; K21.9 Gastro-esophageal reflux disease without esophagitis; E66.9 Obesity, unspecified; N30.20 Other chronic cystitis without hematuria; N39.41 Urge incontinence; R19.7 Diarrhea, unspecified; Z66 Do not resuscitate; Z88.1 Allergy status to other antibiotic agents; Z79.01 Long term (current) use of anticoagulants; Z68.31 Body mass index [BMI] 31.0-31.9, adult; Z79.4 Long term (current) use of insulin; Z85.3 Personal history of malignant neoplasm of breast; Z86.73 Personal history of transient ischemic attack (TIA), and cerebral infarction without residual deficits; Z95.5 Presence of coronary angioplasty implant and graft

== ENCOUNTER 2018-07-10 09:34 | Outpatient (CLI) | payer MEDICARE | END 2018-07-10 09:35 | disposition home or self-care (01) | LOC: RAD 09:34 ==

== ENCOUNTER 2018-08-10 10:31 | Inpatient (IN) | payer MEDICARE ==
[2018-08-10] MEDS ORDERED: Sodium Chloride 0.9% 1,000 ML IV STA ×2 (11:00→12:15)
--- NOTE | 2018-08-10 11:05 | ED PDOC ---
Arrival/HPI - General Chief Complaint: Cough, Cold, Congestion Time Seen by Provider: 08/10/18 10:45 Historian: Patient - History of Present Illness Narrative History of Present Illness (Text): 08/10/18 11:01 An 78 year old female, whose past medical history includes diabetes COPD, A-fib, presents to the emergency department with a complaint of generalized weakness. The patient reports that over the last 3 days, she has been feeling increasingly weak. She notes that she has not eaten in 3 days, felt "achy", and had an episode of black colored diarrhea. Patient states that because she has a history of A- Fib she wanted to come into the emergency department to get evaluated for her symptoms. The patient denies fevers, chills, headache, dizziness, chest pain, shortness of breath, dyspnea on exertion, cough, abdominal pain, nausea, vomiting, urinary/bowel changes, or any other complaint. PMD: Dr. Singer Owner Consulting Engineer: Dr. Modi President Practicing Urologist: Dr. Burrell Time/Duration: Other (3 days ) Symptom Onset: Gradual Symptom Course: Unchanged Activities at Onset: Rest, Light Context: Home Past Medical History - Provider Review Nursing Documentation Reviewed: Yes - Infectious Disease Hx of Infectious Diseases: None - Tetanus Immunization Tetanus Immunization: Unknown - Reproductive Menopause: Yes - Cardiac Hx Cardiac Disorders: Yes (A fib , cardiac cath, coronary stent) Hx Hypertension: Yes - Pulmonary Hx Chronic Obstructive Pulmonary Disease (COPD): Yes - Neurological HX Cerebrovascular Accident: Yes (TIA) - HEENT Hx HEENT Disorder: No Hx Blind: No Hx Cataracts: No Hx Deafness: No Hx Difficulty Chewing: No Hx Epistaxis: No Hx Glaucoma: No Hx Macular Degeneration: No - Renal Hx Renal Disorder: No Hx Dialysis: No Hx Kidney Stones: No Hx Neurogenic Bladder: No Hx Pyelonephritis: No Hx Renal Cancer: No Hx Renal Failure: No - Endocrine/Metabolic Hx Diabetes Mellitus Type 2: Yes - Hematological/Oncological Hx Blood Disorders: No Hx AIDS: No Hx Anemia: No Hx Cancer: Yes Hx Chemotherapy: No Hx Cirrhosis: No Hx Hemophilia: No Hx Hepatitis A: No Hx Hepatitis B: No Hx Hepatitis C: No Hx Metastasis: No Hx Shingles: No Hx Sickle Cell Disease: No Hx Unexplained Bleeding: No - Integumentary Hx Dermatological Disorder: No Hx Basal Cell Carcinoma: No Hx Eczema: No Hx Melanoma: No Hx Psoriasis: No Hx Squamous Cell Carcinoma: No - Musculoskeletal/Rheumatological Hx Musculoskeletal Disorders: Yes Hx Arthritis: No Hx Back Pain: No Hx Degenerative Joint Disease: No Hx Falls: No Hx Fractures: No Hx Gout: No Hx Herniated Disk: No Hx Myasthenia Gravis: No Hx Osteoarthritis: Yes Hx Osteomyelitis: No Hx Osteoporosis: No Hx Rhabdomyolysis: No Hx Spinal Stenosis: No Hx Unsteady Gait: No - Gastrointestinal Hx Gastrointestinal Disorders: No Hx Colostomy: No Hx Crohn's Disease: No Hx Diverticulitis: No Hx Gall Bladder Disease: No Hx Gastroesophageal Reflux: No Hx Ileostomy: No Hx Liver Failure: No Hx Pancreatitis: No HX Swallowing Problems: No - Genitourinary/Gynecological Hx Genitourinary Disorders: No Hx Hematuria: No Hx Incontinence: No Hx Sexually Transmitted Diseases: No Hx Urinary Tract Infection: No - Psychiatric Hx Psychophysiologic Disorder: No Hx Anxiety: No Hx Bipolar Disorder: No Hx Depression: No Hx Emotional Abuse: No Hx Hallucinations: No Hx Panic Disorder: No Hx Post Traumatic Stress Disorder: No Hx Psychosis: No Hx Physical Abuse: No Hx Schizophrenia: No Hx Sexual Abuse: No Hx Substance Use: No - Surgical History Hx Hysterectomy: Yes Other/Comment: lumpectomy R breast - Anesthesia Hx Anesthesia: Yes Hx Anesthesia Reactions: No Hx Malignant Hyperthermia: No - Suicidal Assessment Feels Threatened In Home Enviroment: No Family/Social History - Physician Review Nursing Documentation Reviewed: Yes Family/Social History: No Known Family HX Smoking Status: Never Smoked Hx Alcohol Use: No Hx Substance Use: No Allergies/Home Meds Allergies/Adverse Reactions: Allergies Penicillins Allergy (Verified 08/09/17 13:24) RASH shrimp Allergy (Verified 08/09/17 13:24) RASH clarithromycin Adverse Reaction (Verified 08/09/17 13:24) RASH flu vaccine Adverse Reaction (Uncoded 08/14/17 13:05) FEVER Home Medications: Home Meds Medication Instructions Recorded Confirmed Clonidine HCl [Kapvay] 0.1 mg PO BID 08/10/18 08/10/18 Galantamine [remINYL] 12 mg PO BID 08/10/18 08/10/18 Hydralazine HCl 50 mg PO BID 08/10/18 08/10/18 Levalbuterol [Xopenex] 0.075 mg IH TID 08/10/18 08/10/18 Levothyroxine [Synthroid] 0.075 mg PO DAILY 08/10/18 08/10/18 Lisinopril [Zestril] 40 mg PO DAILY 08/10/18 08/10/18 Spironolactone [Aldactone] 25 mg PO DAILY 08/10/18 08/10/18 Verapamil [Calan Tab] 240 mg PO DAILY 08/10/18 08/10/18 Review of Systems - Physician Review All systems were reviewed & negative as marked: Yes - Review of Systems Constitutional: Other (Generalized weakness). absent: Fevers Respiratory: absent: SOB, Cough Cardiovascular: absent: Chest Pain, EDOUARD Gastrointestinal: Stool Changes (Dark stool), Diarrhea, Appetite Changes (Decr eased appetite). absent: Abdominal Pain, Nausea, Vomiting Genitourinary Female: absent: Urine Output Changes Neurological: absent: Headache, Dizziness Physical Exam - Physical Exam Narrative Physical Exam (Text): 08/10/18 11:06 Constitutional: No acute distress. Head: Normocephalic. Atraumatic. Eyes: PERRL. ENT: Dry mucous membranes. Neck: Supple. Cardiovascular: Tachycardic. Chest: No tenderness. Respiratory: Clear to auscultation bilaterally. GI: Soft. Nontender. Nondistended. Rectal: Stool guaiac negative. Back: No CVA tenderness. Musculoskeletal: No tenderness or swelling of extremities. Skin: No rash. Neurologic: Alert, no focal deficit. Appearance: Positive for: Well-Appearing, Non-Toxic, Comfortable Pain Distress: None Mental Status: Positive for: Alert and Oriented X 3 Medical Decision Making ED Course and Treatment: 08/10/18 11:07 Impression: An 78 year old female presents to the emergency department with a complaint of generalized weakness over the last 3 days with an episode of black colored diarrhea. Plan: -- EKG -- Chest X-ray -- Urinalysis -- Urine Culture -- Labs -- Reassess and disposition Prior Visits: Notes and results from previous visits were reviewed. Progress Notes: EKG: Ordered, reviewed, and independently interpreted the EKG. Rate : 160 BPM Rhythm : A- Fib Interpretation : St- T wave changes anterior, inferior, and lateral. No ST elevations. Chest X-ray Dictator : Alli Pinto MD Report Date : 08/10/2018 12:35:24 IMPRESSION: No active disease. After 1 L bolus, HR remains 140s-150s. Cardizem 15mg IVP administered with rate now in 120s-130s. BP stable. Recent echo showed EF normal. Additional [address] Woodruff accepts patient to his service. - Lab Interpretations I have reviewed the lab results: Yes - RAD Interpretation Radiology Orders: 08/10/18 10:59 CHEST PORTABLE [RAD] Stat - EKG Interpretation Interpreted by ED Physician: Yes Type: 12 lead EKG - Scribe Statement The provider has reviewed the documentation as recorded by the Scribe Leyda Domínguez Provider Scribe Attestation: All medical record entries made by the Scribe were at my direction and personally dictated by me. I have reviewed the chart and agree that the record accurately reflects my personal performance of the history, physical exam, medical decision making, and the department course for this patient. I have also personally directed, reviewed, and agree with the discharge instructions and disposition. Disposition/Present on Arrival - Present on Arrival Any Indicators Present on Arrival: No History of DVT/PE: No History of Uncontrolled Diabetes: No Urinary Catheter: No History of Decub. Ulcer: No History Surgical Site Infection Following: None - Disposition Have Diagnosis and Disposition been Completed?: Yes Diagnosis: Rapid atrial fibrillation, Dehydration, Acute renal insufficiency Disposition: HOSPITALIZED Disposition Time: 12:37 Patient Plan: Admission, Telemetry Condition: SERIOUS
[2018-08-10 11:33] LABS: BASO # 0.02 K/mm3 (0.0-2.0); BASO % 0.3 % (0.0-3.0); HEMOGLOBIN 16.4 g/dL (12.0-16.0); LYMPH # 2.1 (1.2-3.4); LYMPH % 27.3 % (22.0-35.0); MEAN CELL VOLUME 93.7 fl (80.0-105.0); MEAN CORPUSCULAR HEMOGLOBIN 32.1 pg (25.0-35.0); MEAN CORPUSCULAR HGB CONC 34.2 g/dl (31.0-37.0); MEAN PLATELET VOLUME 12.5 fl (7.0-11.0); MONO % 13.2 % (1.0-6.0); RBC 5.11 10^6/uL (3.5-6.1); RED CELL DISTRIBUTION WIDTH 13.2 % (11.5-14.5); WHITE BLOOD COUNT 7.6 10^3/uL (4.5-11.0)
[2018-08-10 11:39] LABS: VENOUS BLOOD GAS PO2 44 mm/Hg (30-55); VENOUS BLOOD PH 7.26 (7.32-7.43)
[2018-08-10 11:40] LABS: INR 1.57; PARTIAL THROMBOPLASTIN TIME 37.3 Seconds (26.9-38.3); PROTHROMBIN TIME 17.7 SECONDS (9.4-12.5)
[2018-08-10 11:51] LABS: ALB/GLOB RATIO 1.3 (1.1-1.8); ALBUMIN 4.3 g/dL (3.0-4.8); ALT/SGPT 51 U/L (7-56); AST/SGOT 73 U/L (14-36); BLOOD UREA NITROGEN 48 mg/dL (7-21); CALCIUM 9.5 mg/dL (8.4-10.5); GFR NON-AFRICAN AMERICAN 29; LIPASE 99 U/L (23-300)
[2018-08-10 11:53] LABS: B-TYPE NATRIURETIC PEPTIDE 812 pg/mL (0-450); TROPONIN I < 0.01 ng/mL
[2018-08-10] MEDS ORDERED: diltiaZEM IVPB 100mg in NS 100 ML IV PRN (12:15)
--- NOTE | 2018-08-10 12:38 | RAD ---
Date of service: 08/10/2018 HISTORY: rapid a fib COMPARISON: 01/24/2018 FINDINGS: LUNGS: No active pulmonary disease. PLEURA: No significant pleural effusion identified, no pneumothorax apparent. CARDIOVASCULAR: Aortic calcification Mild cardiomegaly no pulmonary vascular congestion. OSSEOUS STRUCTURES: No significant abnormalities. VISUALIZED UPPER ABDOMEN: Normal. OTHER FINDINGS: None. IMPRESSION: No active disease.
[2018-08-10 13:56] LABS: PH,URINE 5.5 (4.7-8.0); URINE BILIRUBIN NEGATIVE (NEGATIVE); URINE BLOOD NEGATIVE (NEGATIVE); URINE GLUCOSE (UA) NEGATIVE (NEGATIVE); URINE LEUKOCYTE ESTERASE NEGATIVE Leu/uL (NEGATIVE); URINE PROTEIN NEGATIVE mg/dL (<30 mg/dL); URINE UROBILINOGEN 0.2 E.U./dL (<1 E.U./dL)
[2018-08-10 13:59] LABS: URINE APPEARANCE CLEAR (CLEAR); URINE COLOR YELLOW (YELLOW)
[2018-08-10 15:02] LABS: VENOUS BLOOD GAS BASE EXCESS -2.5 mmol/L (0.0-2.0); VENOUS BLOOD GAS PO2 29 mm/Hg (30-55); VENOUS BLOOD PH 7.31 (7.32-7.43)
[2018-08-10 15:12] VITALS: BMI 29.4
[2018-08-10] MEDS ORDERED: Influenza Vaccine 60 mcg/0.5 mL SYR (4YR UP) IM ONE (15:14)
[2018-08-10] MEDS ORDERED: Pneumococcal 23-Valent Vaccine IM ONE (15:14)
[2018-08-10] MEDS ORDERED: Verapamil 240 mg ER Tab PO SCH (17:45)
[2018-08-10] MEDS ORDERED: Digoxin 500 mcg/2ml (0.5 mg/2ml) Inj IVP ONE ×2 (18:38→22:00)
[2018-08-10] MEDS ORDERED: Enoxaparin 80 mg Syringe SC SCH (18:45)
[2018-08-10] MEDS: Levothyroxine 75 MCG TAB PO SCH (18:46)
[2018-08-10] MEDS: Sodium Chloride 0.9% 1,000 ML IV SCH (19:12)
[2018-08-10] MEDS: Insulin Reg-MEDIUM-Coverage SC SCH (21:53)
[2018-08-10] MEDS: Insulin Detemir 100 units/ml Vial (Levemir) SC SCH (22:56)
--- NOTE | 2018-08-10 23:43 | CON ---
DATE: 08/10/2018 CARDIOLOGY CONSULTATION REASON FOR THE CONSULTATION: AFib with rapid ventricular rate, cardiac evaluation. BRIEF CLINICAL HISTORY: This is an 78-year-old female with past medical history significant for chronic atrial fibrillation, on Eliquis; history of coronary artery disease, status post stent in 1991, 1999, and 2009, LAD circumflex and repeat catheterization in 2012; patent stent recently in the beginning of 2018; being followed by Dr. Kaur Bergerons group and Dr. Andrade for mild nonobstructive coronary artery disease, who was having diarrhea and felt very weak, came to the emergency room found to be in AFib with rapid ventricular rate, so Cardiology consult was called. The patient denies any chest pain. PAST MEDICAL HISTORY: Significant for coronary artery disease, status post multiple stent in 1991, 1999 and 2009, stent in LAD, stent in circumflex; history of atrial fibrillation being followed by Dr. Andrade, Dr. Kaur Lock group; recently the patient had cardiac catheterization by Dr. Mccain at [facility] in the beginning of last year and when I spoke to him last time, he said coronary artery is stable, no significant stenosis a year ago, history of atrial fibrillation, history of diarrhea in the past, and history of hypertension. PREVIOUS CARDIAC WORKUP: As follows; the patient had a stent in 1991, 1999, and 2009, history of last catheterization at [facility] by Dr. Pearl on 06/27/2012, this show patent stent in LAD, patent stent in circumflex, RCA is nondominant, diagonal 1 has moderate disease. Cardiac catheterization on 06/27/2012, revealed patent stent LAD and patent stent circumflex with severe diagonal branch disease and moderate side branch disease, and medical therapy recommended. Also the patient had a year ago in the beginning of the 2018, had a cath done by Dr. Mccain, as the patient is being followed by Dr. Andrade and Dr. Kaur Lock group, and according to Dr. Mccain, the patient still has coronary artery disease, cardiac catheterization revealed no significant stenosis, medical treatment recommended at [facility]. Most recent echo, the patient had on 01/08/2018, reviewed by Dr. James shows normal LV function, ejection fraction within normal limit, mild tricuspid regurgitation, mild pulmonary hypertension, RV systolic pressure reported 43, ejection fraction reported 63% dated at 01/08/2018, and history of atrial fibrillation on Eliquis. SOCIAL HISTORY: Denies smoking. Denies any history of alcohol abuse. CURRENT MEDICATIONS: The patient is taking at home verapamil 240 mg daily, spironolactone, lisinopril, levothyroxine, Xopenex, insulin, hydralazine, Pepcid, clonidine, atorvastatin and Eliquis. ALLERGIES: ALLERGY TO PENICILLIN, SHRIMP, CLARITHROMYCIN AND FLU VACCINE. PHYSICAL EXAMINATION: VITAL SIGNS: Height of the patient is 5 feet 3 inches, weight of the patient is 166 pounds, and body mass index 29.4 kg/m2. Heart rate 135 to 140 and blood pressure 101/88. HEENT: PERRLA. Extraocular muscles intact. NECK: Supple. No carotid bruits or thyromegaly. CHEST: Clear to auscultation. HEART: S1 and S2, regular. ABDOMEN: Soft. EXTREMITIES: Clubbing and cyanosis, negative. DIAGNOSTIC DATA: EKG shows AFib with rapid rate, heart rate is 160 on Cardizem drip, now coming to 2R, 276, bed 2. Blood workup; WBC 7.3, hemoglobin 16, hematocrit 47.9, and platelet count 266. Chemistry shows sodium 134, potassium 4.4, chloride 100, carbon dioxide 29, anion gap of 19, BUN 48, creatinine 1.7. IMPRESSION AND PLAN: This is an 78-year-old female with the past medical history significant for coronary artery disease, status post stent left anterior descending circumflex over the period of time since 1991, 1999 and the last stent was in 2009, then the patient had two repeat catheterization in 06/27/2012, at [facility] by Dr. Pearl, patent stent disease and most recently less than a year ago by Dr. Mccain at [facility], by Dr. Kaur Khan's group says that stable coronary, admitted after having diarrhea, dehydration and uncontrolled atrial fibrillation with rapid ventricular rate. Recommended to start IV fluid, hold Eliquis for now, start Lovenox for the patient, ruled in for [id number] elevation myocardial infarction, we will consider cardiac catheterization, otherwise we will treat medically. We will start hydration, control the atrial fibrillation rate with digoxin, verapamil and change to p.o. verapamil when the rate is well controlled. Lipid profile, TSH, and hemoglobin A1c. We will follow with you. Last echo 12/2017, shows preserved LV function, mild mitral regurgitation and mild tricuspid regurgitation. We will follow with you. Thank you, Dr. Woodruff for providing us the opportunity in taking care of the patient, Hawa Chavis. Gail Modi MD
--- NOTE | 2018-08-10 23:48 | CARD ---
APPROVED REPORT Date of service: 08/10/2018 EKG Measurement Heart [id number] <Conclusion> Atrial fibrillation with rapid ventricular response Low voltage QRS Possible Septal infarct, age undetermined ST & T wave abnormalities Abnormal ECG
[2018-08-11 08:00] LABS: BASO # 0.01 K/mm3 (0.0-2.0); BASO % 0.2 % (0.0-3.0); EOS % 0.4 % (1.5-5.0); LYMPH # 1.9 (1.2-3.4); LYMPH % 33.6 % (22.0-35.0); MEAN CELL VOLUME 93.9 fl (80.0-105.0); MEAN CORPUSCULAR HEMOGLOBIN 31.2 pg (25.0-35.0); MEAN CORPUSCULAR HGB CONC 33.2 g/dl (31.0-37.0); MEAN PLATELET VOLUME 11.8 fl (7.0-11.0); MONO # 0.7 (0.1-0.6); MONO % 12.4 % (1.0-6.0); RBC 4.43 10^6/uL (3.5-6.1); WHITE BLOOD COUNT 5.7 10^3/uL (4.5-11.0)
[2018-08-11 08:04] LABS: HEMOGLOBIN 13.8 g/dL (12.0-16.0)
[2018-08-11 08:12] LABS: ALB/GLOB RATIO 1.2 (1.1-1.8); ALBUMIN 3.3 g/dL (3.0-4.8); ALT/SGPT 54 U/L (7-56); AST/SGOT 65 U/L (14-36); BLOOD UREA NITROGEN 26 mg/dL (7-21); CALCIUM 8.3 mg/dL (8.4-10.5); GFR NON-AFRICAN AMERICAN > 60; HDL CHOLESTEROL 19 mg/dL (29-60)
[2018-08-11 08:13] LABS: TROPONIN I < 0.01 ng/mL
[2018-08-11 08:14] LABS: LDL CHOLESTEROL 51 mg/dL (0-129)
[2018-08-11] MEDS ORDERED: Albuterol-Ipratrop 3 mg / 0.5 (3 ml) UD IH SCH (08:15)
[2018-08-11] MEDS: Levothyroxine 75 MCG TAB PO SCH (08:32)
[2018-08-11] MEDS: Insulin Reg-MEDIUM-Coverage SC SCH ×4 (08:33→21:15)
[2018-08-11] MEDS: Insulin Lispro 1 UNITS/0.01 ML SC SCH ×3 (08:34→16:50)
[2018-08-11] MEDS: Sodium Chloride 0.9% 1,000 ML IV SCH (08:34)
--- NOTE | 2018-08-11 10:49 | CP.PCM.HP ---
<Hector Chavarria - Last Filed: 08/11/18 10:43> History of Present Illness - History of Present Illness History of Present Illness: H&P for Dr Woodruff: 78-year-old female with past medical history of COPD, diabetes, atrial fibrillation on Eliquis, stress incontinence presents with generalized weakness and cough. Patient states that her symptoms started 1 week ago where she thought she is getting flu. She has tried taking NyQuil at home and has not improved her symptoms. He started feeling more weak along with a nonproductive cough. Patient denies any body aches, fever, or chills. Patient does admit to occasional palpitations at home. Patient states that due to her history of atri al fibrillation she decided to come to the ED for evaluation. She denies any other complaints at time. 12 point ROS performed and negative other than as stated above PMH: As above PSH: Lumpectomy, hysterectomy and oophorectomy, appendectomy, tonsillectomy Medications: Refer to [facility] Allergies: Penicillin, shrimp, clarithromycin, flu vaccine SH: Denies any history of smoking, drugs, or drinking. Patient does admit to secondhand smoke father, brother, and the were all smokers. FH: Father with coronary artery disease and diabetes, mother passed from old age Present on Admission - Present on Admission Any Indicators Present on Admission: No Review of Systems - Review of Systems All systems: reviewed and no additional remarkable complaints except Past Patient History - Infectious Disease Hx of Infectious Diseases: None - Tetanus Immunizations Tetanus Immunization: Unknown - Past Social History Smoking Status: Never Smoked - CARDIAC Hx Cardiac Disorders: Yes (A fib , cardiac cath, coronary stent) Hx Hypertension: Yes - PULMONARY Hx Chronic Obstructive Pulmonary Disease (COPD): Yes - NEUROLOGICAL HX Cerebrovascular Accident: Yes (TIA) - HEENT Hx HEENT Problems: No Hx Blind: No Hx Cataracts: No Hx Deafness: No Hx Difficulty Chewing: No Hx Epistaxis: No Hx Glaucoma: No Hx Macular Degeneration: No - RENAL Hx Chronic Kidney Disease: No Hx Dialysis: No Hx Kidney Stones: No Hx Neurogenic Bladder: No Hx Pyelonephritis: No Hx Renal (Kidney) Cancer: No Hx Renal Failure: No - ENDOCRINE/METABOLIC Hx Diabetes Mellitus Type 2: Yes - HEMATOLOGICAL/ONCOLOGICAL Hx Blood Disorders: No Hx AIDS: No Hx Anemia: No Hx Cancer: Yes Hx Chemotherapy: No Hx Cirrhosis: No Hx Hemophilia: No Hx Hepatitis A: No Hx Hepatitis B: No Hx Hepatitis C: No Hx Metastesis: No Hx Shingles: No Hx Sickle Cell Disease: No Hx Unexplained Bleeding: No - INTEGUMENTARY Hx Dermatological Problems: No Hx Basil Cell: No Hx Eczema: No Hx Melanoma: No Hx Psoriasis: No Hx Squamous Cell: No - MUSCULOSKELETAL/RHEUMATOLOGICAL Hx Musculoskeletal Disorders: Yes Hx Arthritis: No Hx Back Pain: No Hx Degenerative Joint Disease: No Hx Falls: No Hx Fractures: No Hx Gout: No Hx Herniated Disk: No Hx Myasthenia Gravis: No Hx Osteoarthritis: Yes Hx Osteomyelitis: No Hx Osteoporosis: No Hx Rhabdomyolysis: No Hx Spinal Stenosis: No Hx Unsteady Gait: No - GASTROINTESTINAL Hx Gastrointestinal Disorders: No Hx Colostomy: No Hx Crohn's Disease: No Hx Diverticulitis: No Hx Gall Bladder Disease: No Hx Gastroesophageal Reflux: No Hx Ileostomy: No Hx Liver Failure: No Hx Pancreatitis: No HX Swallowing Problems: No - GENITOURINARY/GYNECOLOGICAL Hx Genitourinary Disorders: No Hx Hematuria: No Hx Incontinence: No Hx Sexually Transmitted Disorders: No Hx Urinary Tract Infection: No - PSYCHIATRIC Hx Psychophysiologic Disorder: No Hx Anxiety: No Hx Bipolar Disorder: No Hx Depression: No Hx Emotional Abuse: No Hx Hallucinations: No Hx Panic Symptoms: No Hx Post Traumatic Stress Disorder: No Hx Psychosis: No Hx Physical Abuse: No Hx Schizophrenia: No Hx Sexual Abuse: No Hx Substance Use: No - SURGICAL HISTORY Hx Hysterectomy: Yes Other/Comment: lumpectomy R breast - ANESTHESIA Hx Anesthesia: Yes Hx Anesthesia Reactions: No Hx Malignant Hyperthermia: No Meds Allergies/Adverse Reactions: Allergies Allergy/AdvReac Type Severity Reaction Status Date / Time Penicillins Allergy RASH Verified 08/09/17 13:24 shrimp Allergy RASH Verified 08/09/17 13:24 clarithromycin AdvReac RASH Verified 08/09/17 13:24 flu vaccine AdvReac FEVER Uncoded 08/14/17 13:05 Physical Exam - Constitutional Appears: No Acute Distress - Head Exam Head Exam: ATRAUMATIC, NORMOCEPHALIC - Eye Exam Eye Exam: EOMI, PERRL - ENT Exam ENT Exam: Mucous Membranes Moist - Respiratory Exam Respiratory Exam: Clear to Auscultation Bilateral. absent: Rales, Wheezes - Cardiovascular Exam Cardiovascular Exam: Tachycardia, Irregular Rhythm, +S1, +S2 - GI/Abdominal Exam GI & Abdominal Exam: Normal Bowel Sounds, Soft. absent: Tenderness - Extremities Exam Extremities exam: Negative for: calf tenderness, pedal edema - Neurological Exam Neurological exam: Alert, CN II-XII Intact, Oriented x3 - Psychiatric Exam Psychiatric exam: Normal Mood - Skin Skin Exam: Dry, Warm Results - Vital Signs Recent Vital Signs: Last Vital Signs Temp 98.3 F 08/11/18 05:58 Pulse 125 H 08/11/18 08:32 Resp 18 08/11/18 05:58 BP 120/74 08/11/18 08:32 Pulse Ox 94 L 08/11/18 05:58 - Labs Result Diagrams: 08/11/18 06:55 08/11/18 06:55 Labs: Laboratory Results - last 24 hr 08/10/18 08/10/18 08/10/18 11:10 11:10 11:10 WBC 7.6 RBC 5.11 Hgb 16.4 H D Hct 47.9 MCV 93.7 MCH 32.1 MCHC 34.2 RDW 13.2 Plt Count 266 MPV 12.5 H Neut % (Auto) 59.2 Lymph % (Auto) 27.3 [place] % (Auto) 13.2 H Eos % (Auto) 0.0 L Baso % (Auto) 0.3 Lymph # (Auto) 2.1 [place] # (Auto) 1.0 H Eos # (Auto) 0.0 Baso # (Auto) 0.02 Absolute Neuts (auto) 4.52 PT 17.7 H INR 1.57 APTT 37.3 pO2 44 VBG pH 7.26 L VBG pCO2 50.0 VBG HCO3 22.4 VBG Total CO2 23.9 VBG O2 Sat (Calc) 84.1 H VBG Base Excess -5.0 L VBG Potassium 4.5 Sodium 133.0 Chloride 99.0 Glucose 318 H Lactate 3.7 H FiO2 21.0 Crit Value Called To elayne Saeed md Crit Value Called By Isa hilton vp scientific Blood Gas Notified Time 1139 Potassium Carbon Dioxide Anion Gap BUN Creatinine Est GFR ( Amer) Est GFR (Non-Af Amer) POC Glucose (mg/dL) Random Glucose Calcium Phosphorus Magnesium Total Bilirubin AST ALT Alkaline Phosphatase Lactate Dehydrogenase Total Creatine Kinase Troponin I NT-Pro-B Natriuret Pep Total Protein Albumin Globulin Albumin/Globulin Ratio Triglycerides Cholesterol LDL Cholesterol Direct HDL Cholesterol Lipase TSH 3rd Generation Venous Blood Potassium 4.5 Urine Color Urine Appearance Urine pH Ur Specific [place] Urine Protein Urine Glucose (UA) Urine Ketones Urine Blood Urine Nitrate Urine Bilirubin Urine Urobilinogen Ur Leukocyte Esterase Influenza Typ A,B (EIA) 08/10/18 08/10/18 08/10/18 11:10 11:10 13:45 WBC RBC Hgb Hct MCV MCH MCHC RDW Plt Count MPV Neut % (Auto) Lymph % (Auto) [place] % (Auto) Eos % (Auto) Baso % (Auto) Lymph # (Auto) [place] # (Auto) Eos # (Auto) Baso # (Auto) Absolute Neuts (auto) PT INR APTT pO2 VBG pH VBG pCO2 VBG HCO3 VBG Total CO2 VBG O2 Sat (Calc) VBG Base Excess VBG Potassium Sodium 134 Chloride 100 Glucose Lactate FiO2 Crit Value Called To Crit Value Called By Blood Gas Notified Time Potassium 4.4 Carbon Dioxide 20 L Anion Gap 19 BUN 48 H Creatinine 1.7 H Est GFR ( Amer) 35 Est GFR (Non-Af Amer) 29 POC Glucose (mg/dL) Random Glucose 297 H Calcium 9.5 Phosphorus Magnesium 1.6 L Total Bilirubin 0.5 AST 73 H D ALT 51 Alkaline Phosphatase 57 Lactate Dehydrogenase Total Creatine Kinase 102 Troponin I < 0.01 D NT-Pro-B Natriuret Pep 812 H Total Protein 7.6 Albumin 4.3 Globulin 3.3 Albumin/Globulin Ratio 1.3 Triglycerides Cholesterol LDL Cholesterol Direct HDL Cholesterol Lipase 99 TSH 3rd Generation Venous Blood Potassium Urine Color Yellow Urine Appearance Clear Urine pH 5.5 Ur Specific [place] 1.025 Urine Protein Negative Urine Glucose (UA) Negative Urine Ketones Negative Urine Blood Negative Urine Nitrate Negative Urine Bilirubin Negative Urine Urobilinogen 0.2 Ur Leukocyte Esterase Negative Influenza Typ A,B (EIA) Negative for flu a/b 08/10/18 08/10/18 08/10/18 14:44 17:34 21:29 WBC RBC Hgb Hct MCV MCH MCHC RDW Plt Count MPV Neut % (Auto) Lymph % (Auto) [place] % (Auto) Eos % (Auto) Baso % (Auto) Lymph # (Auto) [place] # (Auto) Eos # (Auto) Baso # (Auto) Absolute Neuts (auto) PT INR APTT pO2 29 L VBG pH 7.31 L VBG pCO2 48.0 VBG HCO3 24.2 VBG Total CO2 25.7 VBG O2 Sat (Calc) 53.3 VBG Base Excess -2.5 L VBG Potassium 3.8 Sodium 137.0 Chloride 104.0 Glucose 112 H Lactate 1.9 FiO2 21.0 Crit Value Called To Crit Value Called By Blood Gas Notified Time Potassium Carbon Dioxide Anion Gap BUN Creatinine Est GFR ( Amer) Est GFR (Non-Af Amer) POC Glucose (mg/dL) 100 184 H Random Glucose Calcium Phosphorus Magnesium Total Bilirubin AST ALT Alkaline Phosphatase Lactate Dehydrogenase Total Creatine Kinase Troponin I NT-Pro-B Natriuret Pep Total Protein Albumin Globulin Albumin/Globulin Ratio Triglycerides Cholesterol LDL Cholesterol Direct HDL Cholesterol Lipase TSH 3rd Generation Venous Blood Potassium 3.8 Urine Color Urine Appearance Urine pH Ur Specific [place] Urine Protein Urine Glucose (UA) Urine Ketones Urine Blood Urine Nitrate Urine Bilirubin Urine Urobilinogen Ur Leukocyte Esterase Influenza Typ A,B (EIA) 08/11/18 08/11/18 08/11/18 06:55 06:55 06:55 WBC 5.7 D RBC 4.43 Hgb 13.8 D Hct 41.6 MCV 93.9 MCH 31.2 MCHC 33.2 RDW 13.0 Plt Count 198 MPV 11.8 H Neut % (Auto) 53.4 Lymph % (Auto) 33.6 [place] % (Auto) 12.4 H Eos % (Auto) 0.4 L Baso % (Auto) 0.2 Lymph # (Auto) 1.9 [place] # (Auto) 0.7 H Eos # (Auto) 0.0 Baso # (Auto) 0.01 Absolute Neuts (auto) 3.05 PT INR APTT pO2 VBG pH VBG pCO2 VBG HCO3 VBG Total CO2 VBG O2 Sat (Calc) VBG Base Excess VBG Potassium Sodium 137 Chloride 109 H Glucose Lactate FiO2 Crit Value Called To Crit Value Called By Blood Gas Notified Time Potassium 4.3 Carbon Dioxide 21 Anion Gap 11 BUN 26 H Creatinine 0.8 Est GFR ( Amer) > 60 Est GFR (Non-Af Amer) > 60 POC Glucose (mg/dL) Random Glucose 150 H Calcium 8.3 L Phosphorus 2.8 Magnesium 1.7 Total Bilirubin 0.4 AST 65 H ALT 54 Alkaline Phosphatase 53 Lactate Dehydrogenase 462 Total Creatine Kinase 89 Troponin I < 0.01 NT-Pro-B Natriuret Pep Total Protein 6.1 Albumin 3.3 Globulin 2.7 Albumin/Globulin Ratio 1.2 Triglycerides 219 H Cholesterol 93 L LDL Cholesterol Direct 51 HDL Cholesterol 19 L Lipase TSH 3rd Generation 1.54 Venous Blood Potassium Urine Color Urine Appearance Urine pH Ur Specific [place] Urine Protein Urine Glucose (UA) Urine Ketones Urine Blood Urine Nitrate Urine Bilirubin Urine Urobilinogen Ur Leukocyte Esterase Influenza Typ A,B (EIA) 08/11/18 07:32 WBC RBC Hgb Hct MCV MCH MCHC RDW Plt Count MPV Neut % (Auto) Lymph % (Auto) [place] % (Auto) Eos % (Auto) Baso % (Auto) Lymph # (Auto) [place] # (Auto) Eos # (Auto) Baso # (Auto) Absolute Neuts (auto) PT INR APTT pO2 VBG pH VBG pCO2 VBG HCO3 VBG Total CO2 VBG O2 Sat (Calc) VBG Base Excess VBG Potassium Sodium Chloride Glucose Lactate FiO2 Crit Value Called To Crit Value Called By Blood Gas Notified Time Potassium Carbon Dioxide Anion Gap BUN Creatinine Est GFR ( Amer) Est GFR (Non-Af Amer) POC Glucose (mg/dL) 158 H Random Glucose Calcium Phosphorus Magnesium Total Bilirubin AST ALT Alkaline Phosphatase Lactate Dehydrogenase Total Creatine Kinase Troponin I NT-Pro-B Natriuret Pep Total Protein Albumin Globulin Albumin/Globulin Ratio Triglycerides Cholesterol LDL Cholesterol Direct HDL Cholesterol Lipase TSH 3rd Generation Venous Blood Potassium Urine Color Urine Appearance Urine pH Ur Specific [place] Urine Protein Urine Glucose (UA) Urine Ketones Urine Blood Urine Nitrate Urine Bilirubin Urine Urobilinogen Ur Leukocyte Esterase Influenza Typ A,B (EIA) Assessment & Plan - Assessment and Plan (Free Text) Assessment: 1. Atrial fibrillation with RVR. 2. Acute kidney injury - resolved 3. URI 4. Diabetes mellitus 5. Hypomagnesemia 6. COPD 7. Stress incontinence 8. Erythrocytosis - resolved 9. Hypothyroid Patient's heart rate still 130-140. Given 2 doses of digoxin 0.25. Cont Atenolol and verapamil (aries and prn). Patient is currently on Lovenox 70 mg subcu daily, her home Eliquis is on hold. Continue to hold patient's home Aldactone, verapamil, lisinopril as per cardiology. Echo has been ordered we will follow-up results. Cardiology is consulted awaiting further recommendations. Patient presented with a creatinine of 1.7 she has now resolved 0.8 following bolus of normal saline x2. Patient was started on doxycycline for her cough (patient is allergic to penicillin and clarithromycin). Continue with levothyroxine for her hypothyroid. Continue with insulin Levemir 20 units at bedtime, lispro 12 units before meals for her diabetes. Continue with Xopenex for her COPD as needed. Follow-up septic workup. Follow-up pro calcitonin ordered. 1 g of magnesium sulfate will be ordered for her hypomagnesemia. Erythrocytosis likely secondary to dehydration has now resolved. Continue to monitor for any changes. Case and plan was reviewed and discussed with Dr. Woodruff. <Tod Woodruff - Last Filed: 08/11/18 20:39> Results - Vital Signs Recent Vital Signs: Last Vital Signs Temp 98.1 F 08/11/18 18:00 Pulse 92 H 08/11/18 18:06 Resp 18 08/11/18 18:00 BP 129/62 08/11/18 18:06 Pulse Ox 95 08/11/18 18:00 - Labs Result Diagrams: 08/11/18 06:55 08/11/18 06:55 Labs: Laboratory Results - last 24 hr 08/10/18 08/10/18 08/11/18 17:34 21:29 06:55 WBC 5.7 D RBC 4.43 Hgb 13.8 D Hct 41.6 MCV 93.9 MCH 31.2 MCHC 33.2 RDW 13.0 Plt Count 198 MPV 11.8 H Neut % (Auto) 53.4 Lymph % (Auto) 33.6 [place] % (Auto) 12.4 H Eos % (Auto) 0.4 L Baso % (Auto) 0.2 Lymph # (Auto) 1.9 [place] # (Auto) 0.7 H Eos # (Auto) 0.0 Baso # (Auto) 0.01 Absolute Neuts (auto) 3.05 Sodium Potassium Chloride Carbon Dioxide Anion Gap BUN Creatinine Est GFR ( Amer) Est GFR (Non-Af Amer) POC Glucose (mg/dL) 100 184 H Random Glucose Calcium Phosphorus Magnesium Total Bilirubin AST ALT Alkaline Phosphatase Lactate Dehydrogenase Total Creatine Kinase Troponin I Total Protein Albumin Globulin Albumin/Globulin Ratio Triglycerides Cholesterol LDL Cholesterol Direct HDL Cholesterol Procalcitonin TSH 3rd Generation 08/11/18 08/11/18 08/11/18 06:55 06:55 07:00 WBC RBC Hgb Hct MCV MCH MCHC RDW Plt Count MPV Neut % (Auto) Lymph % (Auto) [place] % (Auto) Eos % (Auto) Baso % (Auto) Lymph # (Auto) [place] # (Auto) Eos # (Auto) Baso # (Auto) Absolute Neuts (auto) Sodium 137 Potassium 4.3 Chloride 109 H Carbon Dioxide 21 Anion Gap 11 BUN 26 H Creatinine 0.8 Est GFR ( Amer) > 60 Est GFR (Non-Af Amer) > 60 POC Glucose (mg/dL) Random Glucose 150 H Calcium 8.3 L Phosphorus 2.8 Magnesium 1.7 Total Bilirubin 0.4 AST 65 H ALT 54 Alkaline Phosphatase 53 Lactate Dehydrogenase 462 Total Creatine Kinase 89 Troponin I < 0.01 Total Protein 6.1 Albumin 3.3 Globulin 2.7 Albumin/Globulin Ratio 1.2 Triglycerides 219 H Cholesterol 93 L LDL Cholesterol Direct 51 HDL Cholesterol 19 L Procalcitonin < 0.05 L TSH 3rd Generation 1.54 08/11/18 08/11/18 08/11/18 07:32 11:32 16:31 WBC RBC Hgb Hct MCV MCH MCHC RDW Plt Count MPV Neut % (Auto) Lymph % (Auto) [place] % (Auto) Eos % (Auto) Baso % (Auto) Lymph # (Auto) [place] # (Auto) Eos # (Auto) Baso # (Auto) Absolute Neuts (auto) Sodium Potassium Chloride Carbon Dioxide Anion Gap BUN Creatinine Est GFR ( Amer) Est GFR (Non-Af Amer) POC Glucose (mg/dL) 158 H 182 H 65 Random Glucose Calcium Phosphorus Magnesium Total Bilirubin AST ALT Alkaline Phosphatase Lactate Dehydrogenase Total Creatine Kinase Troponin I Total Protein Albumin Globulin Albumin/Globulin Ratio Triglycerides Cholesterol LDL Cholesterol Direct HDL Cholesterol Procalcitonin TSH 3rd Generation 08/11/18 17:05 WBC RBC Hgb Hct MCV MCH MCHC RDW Plt Count MPV Neut % (Auto) Lymph % (Auto) [place] % (Auto) Eos % (Auto) Baso % (Auto) Lymph # (Auto) [place] # (Auto) Eos # (Auto) Baso # (Auto) Absolute Neuts (auto) Sodium Potassium Chloride Carbon Dioxide Anion Gap BUN Creatinine Est GFR ( Amer) Est GFR (Non-Af Amer) POC Glucose (mg/dL) 80 Random Glucose Calcium Phosphorus Magnesium Total Bilirubin AST ALT Alkaline Phosphatase Lactate Dehydrogenase Total Creatine Kinase Troponin I Total Protein Albumin Globulin Albumin/Globulin Ratio Triglycerides Cholesterol LDL Cholesterol Direct HDL Cholesterol Procalcitonin TSH 3rd Generation Assessment & Plan - Assessment and Plan (Free Text) Assessment: Pt seen and examined by me. I have reviewed the note of the medical insurance biller and I agree with it. I have discussed the assessment and plan with the resident. I have reviewed the medications and the last labs.Pt with Afib with rapid rate, the rate is better today. She is on Atenolol and Verapamil. On Lovenox for anticoagulation. She has DM-2 and is on Levemir. Low Mg is being replaced. On Levothyroxine for hyopthyroidism. Will need PT. Started on doxy for URI.
[2018-08-11] MEDS ORDERED: Magnesium Sulfate 1 gm in D5W 1 GM/100 ML BAG IVPB ONE (11:02)
--- NOTE | 2018-08-11 11:23 | CP.PCM.PN ---
Subjective - Date & Time of Evaluation Date of Evaluation: 08/11/18 Time of Evaluation: 06:30 - Subjective Subjective: Awake, alert, mild shortness of breath with wheezing Reason for consultation and follow up: Cardiac evaluation of atrial fibrillation Seen and examined by me and Dr. Modi Objective - Vital Signs/Intake and Output Vital Signs (last 24 hours): Temp Pulse Resp BP Pulse Ox 98.3 F 125 H 18 120/74 94 L 08/11/18 05:58 08/11/18 08:32 08/11/18 05:58 08/11/18 08:32 08/11/18 05:58 Intake and Output: 08/11/18 08/11/18 06:59 18:59 Intake Total 1050 Balance 1050 - Medications Medications: Current Medications Albuterol/Ipratropium (Duoneb 3 Mg/0.5 Mg (3 Ml) Ud) 3 ml IH TIDRESP [facility] Apixaban (Eliquis) 5 mg PO BID [facility]; Protocol Last Admin: 08/10/18 19:12 Dose: Not Given Atenolol (Tenormin) 12.5 mg PO BID [facility] Last Admin: 08/11/18 08:32 Dose: 12.5 mg Enoxaparin Sodium (Lovenox) 70 mg SC Q24H [facility]; Protocol Last Admin: 08/10/18 20:33 Dose: 70 mg Doxycycline Hyclate 100 mg/ (Sodium Chloride) 100 mls @ 100 mls/hr IVPB Q12 [facility]; Protocol Magnesium Sulfate/Dextrose (Magnesium Sulfate 1 Gm/100 Ml D5w) 1 gm in 100 mls @ 100 mls/hr IVPB ONCE ONE Stop: 08/11/18 12:01 Insulin Detemir (Levemir) 20 unit SC HS [facility] Last Admin: 08/10/18 22:56 Dose: 20 units Insulin Human Lispro (Humalog) 12 units SC AC [facility] Last Admin: 08/11/18 08:34 Dose: 12 unit Insulin Human Regular (Humulin R Med) 0 units SC ACHS [facility]; Protocol Last Admin: 08/11/18 08:33 Dose: 1 unit Levothyroxine Sodium (Synthroid) 75 mcg PO DAILY [facility] Last Admin: 08/11/18 08:32 Dose: 75 mcg Lisinopril (Zestril) 40 mg PO DAILY [facility] Spironolactone (Aldactone) 25 mg PO DAILY [facility] Last Admin: 08/10/18 19:11 Dose: Not Given Verapamil HCl (Calan Sr Tab) 240 mg PO DAILY [facility] Last Admin: 08/10/18 18:40 Dose: Not Given Verapamil HCl (Calan Tab) 40 mg PO TID [facility] Last Admin: 08/10/18 18:58 Dose: 40 mg Verapamil HCl (Verapamil Inj) 2.5 mg IVP Q6H PRN PRN Reason: for heart rate >130 Last Admin: 08/11/18 06:04 Dose: 2.5 mg - Labs Labs: 08/11/18 06:55 08/11/18 06:55 PT 17.7 SECONDS (9.4-12.5) H 08/10/18 11:10 INR 1.57 08/10/18 11:10 APTT 37.3 Seconds (26.9-38.3) 08/10/18 11:10 - Constitutional Appears: Non-toxic, No Acute Distress - Head Exam Head Exam: NORMAL INSPECTION, NORMOCEPHALIC - Eye Exam Eye Exam: Normal appearance Pupil Exam: NORMAL ACCOMODATION - ENT Exam ENT Exam: Mucous Membranes Moist - Respiratory Exam Respiratory Exam: Decreased Breath Sounds, Wheezes, NORMAL BREATHING PATTERN - Cardiovascular Exam Cardiovascular Exam: Irregular Rhythm, +S1, +S2 Additional comments: Telemetry atrial fibrillation 120's - GI/Abdominal Exam GI & Abdominal Exam: Soft, Normal Bowel Sounds - Extremities Exam Extremities Exam: Full ROM, Normal Capillary Refill - Neurological Exam Neurological Exam: Alert, Awake, Oriented x3 - Psychiatric Exam Psychiatric exam: Normal Affect, Normal Mood - Skin Skin Exam: Dry, Normal Color, Warm Assessment and Plan - Assessment and Plan (Free Text) Assessment: An 78 year old female with came in to the ER due to generalized weakness and cough and diarrhea. History of COPD,hypertension, diabetes, atrial fibrillation on Eliquis, coronary artery disease, post stents in 1991,1999, and 2009 LAD and circumflex, repeat cardiac cath in 2012, patent stents recently early of 2017. She follows up with and Dr. Andrade group. In ER had rapid atrial fibrillation thus consult was called. Digoxin was given in ER. Troponin normal. Uncontrolled rate atrial fibrillation. started on Verapamil. Telemetry showed Afib heart rate 120's. Will give IV digoxin 0.25 mg and start daily at 0.125 mg po. Increase Verapamil dose. Continue telemetry. Plan: Slight shortness of breath, wheezing ,on Nasal cannula Nebulizer treatment Heart rate 120's atrial fibrillation Digoxin 0.25 mg IV x 1 dose then Digoxin 0.125 mg po daily, Increase Verapamil to 80 mg TID Blood pressure stable On Eliquis 5 mg BID, Tenormin 12.5 mg BID, Lovenox 70 mg daily, Synthroid 75 mcg daily, Lisinopril 40 mg daily, Aldactone 25 mg daily, Verapamil 40 mg TID, Continue current treatment Continue current medications Will change Albuterol to Xopenex to prevent further increase heart rate Will follow up Plan and treatment discussed with Dr. Modi
[2018-08-11] MEDS ORDERED: Digoxin 500 mcg/2ml (0.5 mg/2ml) Inj IVP STA (11:37)
[2018-08-11] MEDS ORDERED: Levalbuterol 0.63 MG/3 ML Inhal Soln UD IH PRN (11:39)
--- NOTE | 2018-08-11 13:43 | CARD ---
APPROVED REPORT Date of service: 08/11/2018 EXAM: Two-dimensional and M-mode echocardiogram with Doppler and color Doppler. INDICATION Atrial Fibrillation Chest Pain RVR 2D DIMENSIONS Left Atrium (2D)4.2 (1.6-4.0cm)IVSd1.1 (0.7-1.1cm) LVDd3.8 (3.9-5.9cm)PWd1.2 (0.7-1.1cm) M-Mode DIMENSIONS Aortic Root3.00 (2.2-3.7cm)Aortic Cusp Exc.1.40 (1.5-2.0cm) Aortic Valve AoV Peak [id number]/[place] Peak GR.8mmHg Mitral Valve E/A ratio0.0 TDI E/Lateral E'0.0E/Medial E'0.0 Pulmonary Valve PV Peak [id number]/sPV Peak Grad.5mmHg Tricuspid Valve TR Peak [id number] [id number] Peak Gr.30mmHg [id number] LEFT VENTRICLE The left ventricle is normal size. There is mild concentric left ventricular hypertrophy. The left ventricular function is normal.EF-55% ( AFib) There is normal LV segmental wall motion. Pt was in Afib , diastolic Fx could not beasssessed. No left ventricle thrombus noted on this study. There is no ventricular septal defect visualized. There is no left ventricular aneurysm. There is no mass noted in the left ventricle. RIGHT VENTRICLE The right ventricle is normal size. There is normal right ventricular wall thickness. The right ventricular systolic function is normal. ATRIA The left atrium is mildly dilated. The right atrium is mildly dilated. The interatrial septum is intact with no evidence for an atrial septal defect. AORTIC VALVE The aortic valve is thickened but opens well. There is trace aortic regurgitation. Aortic Sclerosis Vs Mild As There is no aortic valvular vegetation. MITRAL VALVE The mitral valve is thickened but opens well. Mitral regurgitation is trace. There is no mitral valve stenosis. There is no evidence of mitral valve prolapse. TRICUSPID VALVE The tricuspid valve leaflets are thickened , but open well. There is mild tricuspid regurgitation.RVSP-40 mmof Hg. There is no tricuspid valve stenosis. There is no tricuspid valve prolapse or vegetation. PULMONIC VALVE The pulmonary valve is normal in structure. There is trace pulmonic valvular regurgitation. There is no pulmonic valvular stenosis. GREAT VESSELS The aortic root is normal in size. The ascending aorta is normal in size. The pulmonary artery is normal. The IVC is normal in size and collapses >50% with inspiration. PERICARDIAL EFFUSION There is no pleural effusion. There is no pericardial effusion. <Conclusion> The left ventricle is normal size. There is mild concentric left ventricular hypertrophy. The left ventricular function is normal.EF-55% ( AFib) There is trace aortic regurgitation. Aortic Sclerosis Vs Mild As Mitral regurgitation is trace. There is mild tricuspid regurgitation.RVSP-40 mmof Hg. The IVC is normal in size and collapses >50% with inspiration. There is no pericardial effusion. No Vegetateion or thrombus noted.
[2018-08-11] MEDS ORDERED: Digoxin 500 mcg/2ml (0.5 mg/2ml) Inj IVP ONE (16:00)
[2018-08-11 17:17] VITALS: PULSE 99
[2018-08-11] MEDS: Insulin Detemir 100 units/ml Vial (Levemir) SC SCH (21:21)
[2018-08-12 07:09] LABS: BASO # 0.01 K/mm3 (0.0-2.0); BASO % 0.2 % (0.0-3.0); EOS % 0.6 % (1.5-5.0); HEMOGLOBIN 13.3 g/dL (12.0-16.0); LYMPH % 38.9 % (22.0-35.0); MEAN CELL VOLUME 93.7 fl (80.0-105.0); MEAN CORPUSCULAR HEMOGLOBIN 30.9 pg (25.0-35.0); MEAN CORPUSCULAR HGB CONC 32.9 g/dl (31.0-37.0); MEAN PLATELET VOLUME 11.6 fl (7.0-11.0); MONO # 0.6 (0.1-0.6); MONO % 10.6 % (1.0-6.0); RBC 4.31 10^6/uL (3.5-6.1); RED CELL DISTRIBUTION WIDTH 12.8 % (11.5-14.5); WHITE BLOOD COUNT 5.2 10^3/uL (4.5-11.0)
[2018-08-12 07:40] LABS: ALB/GLOB RATIO 1.1 (1.1-1.8); ALBUMIN 3.1 g/dL (3.0-4.8); ALT/SGPT 42 U/L (7-56); AST/SGOT 42 U/L (14-36); BLOOD UREA NITROGEN 14 mg/dL (7-21); CALCIUM 8.2 mg/dL (8.4-10.5); GFR NON-AFRICAN AMERICAN > 60
[2018-08-12] MEDS: Insulin Lispro 1 UNITS/0.01 ML SC SCH ×3 (07:47→17:17)
[2018-08-12] MEDS: Levothyroxine 75 MCG TAB PO SCH (07:47)
[2018-08-12] MEDS: Insulin Reg-MEDIUM-Coverage SC SCH ×4 (07:48→21:31)
[2018-08-12] MEDS ORDERED: MethylPREDNISolone 40 mg Vial IV STA (07:52)
--- NOTE | 2018-08-12 08:55 | CP.PCM.PN ---
Subjective - Date & Time of Evaluation Date of Evaluation: 08/12/18 Time of Evaluation: 06:50 - Subjective Subjective: Awake, alert, denies shortness of breath, expiratory wheezing Reason for consultation and follow up: Cardiac evaluation of atrial fibrillation Seen and examined by me and Dr. Modi Objective - Vital Signs/Intake and Output Vital Signs (last 24 hours): Temp Pulse Resp BP Pulse Ox 97.6 F 109 H 20 140/73 98 08/12/18 05:59 08/12/18 05:59 08/12/18 05:59 08/12/18 05:59 08/12/18 05:59 Intake and Output: 08/12/18 08/12/18 06:59 18:59 Intake Total 420 Balance 420 - Medications Medications: Current Medications Apixaban (Eliquis) 5 mg PO BID [facility]; Protocol Last Admin: 08/11/18 17:14 Dose: 5 mg Atenolol (Tenormin) 12.5 mg PO BID [facility] Last Admin: 08/11/18 18:06 Dose: 12.5 mg Digoxin (Digoxin) 0.125 mg PO 1400 [facility] Doxycycline Hyclate 100 mg/ (Sodium Chloride) 100 mls @ 100 mls/hr IVPB Q12 [facility]; Protocol Last Admin: 08/11/18 21:21 Dose: 100 mls/hr Insulin Detemir (Levemir) 20 unit SC HS [facility] Last Admin: 08/11/18 21:21 Dose: 20 units Insulin Human Lispro (Humalog) 12 units SC AC [facility] Last Admin: 08/12/18 07:47 Dose: 12 unit Insulin Human Regular (Humulin R Med) 0 units SC ACHS [facility]; Protocol Last Admin: 08/12/18 07:48 Dose: Not Given Levalbuterol HCl (Xopenex) 0.63 mg IH [id number] PRN PRN Reason: Shortness of Breath Levothyroxine Sodium (Synthroid) 75 mcg PO DAILY [facility] Last Admin: 08/12/18 07:47 Dose: 75 mcg Lisinopril (Zestril) 40 mg PO DAILY [facility] Methylprednisolone (Solu-Medrol) 30 mg IVP Q12 [facility] Spironolactone (Aldactone) 25 mg PO DAILY [facility] Last Admin: 08/10/18 19:11 Dose: Not Given Verapamil HCl (Verapamil Inj) 2.5 mg IVP Q6H PRN PRN Reason: for heart rate >130 Last Admin: 08/11/18 06:04 Dose: 2.5 mg Verapamil HCl (Calan Sr Tab) 240 mg PO DAILY [facility] - Labs Labs: 08/12/18 06:00 08/12/18 06:00 PT 17.7 SECONDS (9.4-12.5) H 08/10/18 11:10 INR 1.57 08/10/18 11:10 APTT 37.3 Seconds (26.9-38.3) 08/10/18 11:10 - Constitutional Appears: Non-toxic, No Acute Distress - Head Exam Head Exam: NORMAL INSPECTION, NORMOCEPHALIC - Eye Exam Eye Exam: Normal appearance Pupil Exam: NORMAL ACCOMODATION - ENT Exam ENT Exam: Mucous Membranes Moist - Respiratory Exam Respiratory Exam: Clear to Ausculation Bilateral, Wheezes, NORMAL BREATHING PATTERN - Cardiovascular Exam Cardiovascular Exam: Irregular Rhythm, +S1, +S2 Additional comments: Telemetry atrial fibrillation 60's - GI/Abdominal Exam GI & Abdominal Exam: Soft, Normal Bowel Sounds - Extremities Exam Extremities Exam: Full ROM, Normal Capillary Refill - Neurological Exam Neurological Exam: Alert, Awake, Oriented x3 - Psychiatric Exam Psychiatric exam: Normal Affect, Normal Mood - Skin Skin Exam: Dry, Normal Color, Warm Assessment and Plan - Assessment and Plan (Free Text) Assessment: An 78 year old female with came in to the ER due to generalized weakness and cough and diarrhea. History of COPD,hypertension, diabetes, atrial fibrillation on Eliquis, coronary artery disease, post stents in 1991,1999, and 2009 LAD and circumflex, repeat cardiac cath in 2012, patent stents recently early of 2017. She follows up with and Dr. Andrade group. In ER had ra pid atrial fibrillation thus consult was called. Digoxin was given in ER. Troponin normal. Uncontrolled rate atrial fibrillation. Restarted Verapamil. Digoxin given IV yesterday and started on oral digoxin yesterday. Verapamil dose was also increased. 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 Will resume Verapamil 240 mg daily from home. Still have some expiratory wheezing, will start low dose Solumedrol. Changed Albuterol to Xopenex prevent further increase heart rate. Lovenox discontiued and resume Eliquis. Antibiotics started for possible acute bronchitis. On Doxycycline ,allergic to penicillin. Urine culture positive for Klebsiella pneumonia/Enterococcus faecalis.Will call ID consult. Plan: Denies shortness of breath, expiratory wheezing on auscultation Will start low dose Solumedrol. Changed Albuterol to Xopenex prevent further increase heart rate. L Antibiotics started for possible acute bronchitis. On Vibramycin,allergic to penicillin Started Digoxin yesterday for uncontrolled atrial fibrillation Verapamil dose increased Lovenox discontiued and resumed Eliquis. Blood pressure stable On Eliquis 5 mg BID, Tenormin 12.5 mg BID, Lovenox 70 mg daily, Synthroid 75 mcg daily, Lisinopril 40 mg daily, Aldactone 25 mg daily, Verapamil 40 mg TID, Continue current treatment Continue current medications Urine culture positive for Klebsiella pneumonia/Enterococcus faecalis Will follow up Plan and treatment discussed with Dr. Modi
[2018-08-12] MEDS: Verapamil 240 mg ER Tab PO SCH (10:01)
--- NOTE | 2018-08-12 10:31 | CP.PCM.PN ---
<Hector Chavarria - Last Filed: 08/12/18 10:36> Subjective - Date & Time of Evaluation Date of Evaluation: 08/12/18 Time of Evaluation: 07:10 - Subjective Subjective: Medicine progress note: Patient seen and examined at bedside. No acute events overnight. Patient denies any chest pain or palpitations. She still complains of some cough. No other complaints 12 point ROS performed and negative other than stated above. Objective - Vital Signs/Intake and Output Vital Signs (last 24 hours): Temp Pulse Resp BP Pulse Ox 97.6 F 117 H 20 147/81 98 08/12/18 05:59 08/12/18 10:02 08/12/18 05:59 08/12/18 10:02 08/12/18 05:59 Intake and Output: 08/12/18 08/12/18 06:59 18:59 Intake Total 420 Balance 420 - Medications Medications: Current Medications Apixaban (Eliquis) 5 mg PO BID [facility]; Protocol Last Admin: 08/12/18 10:01 Dose: 5 mg Atenolol (Tenormin) 12.5 mg PO BID [facility] Last Admin: 08/12/18 10:02 Dose: 12.5 mg Digoxin (Digoxin) 0.125 mg PO 1400 [facility] Doxycycline Hyclate 100 mg/ (Sodium Chloride) 100 mls @ 100 mls/hr IVPB Q12 [facility]; Protocol Last Admin: 08/12/18 09:58 Dose: 100 mls/hr Insulin Detemir (Levemir) 20 unit SC HS [facility] Last Admin: 08/11/18 21:21 Dose: 20 units Insulin Human Lispro (Humalog) 12 units SC AC [facility] Last Admin: 08/12/18 07:47 Dose: 12 unit Insulin Human Regular (Humulin R Med) 0 units SC ACHS [facility]; Protocol Last Admin: 08/12/18 07:48 Dose: Not Given Levalbuterol HCl (Xopenex) 0.63 mg IH [id number] PRN PRN Reason: Shortness of Breath Levothyroxine Sodium (Synthroid) 75 mcg PO DAILY [facility] Last Admin: 08/12/18 07:47 Dose: 75 mcg Lisinopril (Zestril) 40 mg PO DAILY [facility] Methylprednisolone (Solu-Medrol) 30 mg IVP Q12 [facility] Spironolactone (Aldactone) 25 mg PO DAILY [facility] Last Admin: 08/10/18 19:11 Dose: Not Given Verapamil HCl (Verapamil Inj) 2.5 mg IVP Q6H PRN PRN Reason: for heart rate >130 Last Admin: 08/11/18 06:04 Dose: 2.5 mg Verapamil HCl (Calan Sr Tab) 240 mg PO DAILY [facility] Last Admin: 08/12/18 10:01 Dose: 240 mg - Labs Labs: 08/12/18 06:00 08/12/18 06:00 PT 17.7 SECONDS (9.4-12.5) H 08/10/18 11:10 INR 1.57 08/10/18 11:10 APTT 37.3 Seconds (26.9-38.3) 08/10/18 11:10 - Constitutional Appears: No Acute Distress - Head Exam Head Exam: ATRAUMATIC, NORMOCEPHALIC - Eye Exam Eye Exam: EOMI - ENT Exam ENT Exam: Mucous Membranes Moist - Respiratory Exam Respiratory Exam: Clear to Ausculation Bilateral. absent: Rales, Wheezes - Cardiovascular Exam Cardiovascular Exam: REGULAR RHYTHM, +S1, +S2 - GI/Abdominal Exam GI & Abdominal Exam: Soft. absent: Distended, Tenderness - Extremities Exam Extremities Exam: absent: Calf Tenderness, Pedal Edema - Neurological Exam Neurological Exam: Alert, Awake, Oriented x3 - Psychiatric Exam Psychiatric exam: Normal Mood - Skin Skin Exam: Dry, Warm Assessment and Plan - Assessment and Plan (Free Text) Assessment: 1. Atrial fibrillation with RVR. 2. Acute kidney injury - resolved 3. URI 4. Diabetes mellitus 5. Hypomagnesemia 6. COPD 7. Stress incontinence 8. Erythrocytosis - resolved 9. Hypothyroid Patient's heart rate still 90-110 range. Continue with digoxin, Atenolol and verapamil (aries and prn), and is on anticoagulation with Eliquis. Continue to hold patient's home Aldactone, lisinopril as per cardiology. Echo with EF 55%. Cardiology is consulted awaiting further recommendations. Cont to monitor BUN/Cr for her JENNIFER. Continue doxycycline for her cough (patient is allergic to penicillin and clarithromycin). Continue with levothyroxine for her hypothyroid. Continue with insulin Levemir 20 units at bedtime, lispro 12 units before meals for her diabetes. Continue with Xopenex for her COPD as needed, she was started on solumedrol 30 Q12. Follow-up septic workup. Follow-up pro calcitonin neg. Continue to monitor for any changes. Case and plan was reviewed and discussed with Dr. Woodruff. <Tod Woodruff - Last Filed: 08/12/18 18:32> Objective - Vital Signs/Intake and Output Vital Signs (last 24 hours): Temp Pulse Resp BP Pulse Ox 98.2 F 145 H 20 140/73 98 08/12/18 12:00 08/12/18 17:18 08/12/18 12:00 08/12/18 17:18 08/12/18 05:59 Intake and Output: 08/12/18 08/12/18 06:59 18:59 Intake Total 420 Balance 420 - Medications Medications: Current Medications Apixaban (Eliquis) 5 mg PO BID [facility]; Protocol Last Admin: 08/12/18 17:17 Dose: 5 mg Meropenem (Merrem Iv 1 Gm Premix) 1 gm in 50 mls @ 100 mls/hr IVPB Q8 [facility]; Protocol Stop: 08/21/18 14:02 Last Admin: 08/12/18 15:41 Dose: 100 mls/hr Insulin Detemir (Levemir) 20 unit SC HS [facility] Last Admin: 08/11/18 21:21 Dose: 20 units Insulin Human Lispro (Humalog) 12 units SC AC [facility] Last Admin: 08/12/18 17:17 Dose: 12 unit Insulin Human Regular (Humulin R Med) 0 units SC ACHS [facility]; Protocol Last Admin: 08/12/18 17:17 Dose: 5 unit Levalbuterol HCl (Xopenex) 0.63 mg IH [id number] PRN PRN Reason: Shortness of Breath Levothyroxine Sodium (Synthroid) 75 mcg PO 0600 [facility] Lisinopril (Zestril) 40 mg PO DAILY [facility] Methylprednisolone (Solu-Medrol) 30 mg IVP Q12 [facility] Spironolactone (Aldactone) 25 mg PO DAILY [facility] Last Admin: 08/10/18 19:11 Dose: Not Given Verapamil HCl (Verapamil Inj) 2.5 mg IVP Q6H PRN PRN Reason: for heart rate >130 Last Admin: 08/12/18 15:44 Dose: 2.5 mg Verapamil HCl (Calan Sr Tab) 240 mg PO DAILY [facility] Last Admin: 08/12/18 10:01 Dose: 240 mg - Labs Labs: 08/12/18 06:00 08/12/18 06:00 PT 17.7 SECONDS (9.4-12.5) H 08/10/18 11:10 INR 1.57 08/10/18 11:10 APTT 37.3 Seconds (26.9-38.3) 08/10/18 11:10 Assessment and Plan - Assessment and Plan (Free Text) Assessment: Pt seen and examined by me. I have reviewed the note of the medical social consultant and I agree with it. I have discussed the assessment and plan with the resident. I have reviewed the medications and the last labs.
[2018-08-12] MEDS ORDERED: Digoxin 125 mcg (0.125 mg) Tab PO SCH (14:00)
[2018-08-12 15:29] LABS: URINE BILIRUBIN NEGATIVE (NEGATIVE); URINE BLOOD NEGATIVE (NEGATIVE); URINE GLUCOSE (UA) 250 mg/dL (NEGATIVE); URINE LEUKOCYTE ESTERASE SMALL Leu/uL (NEGATIVE); URINE PROTEIN TRACE mg/dL (<30 mg/dL); URINE UROBILINOGEN 0.2 E.U./dL (<1 E.U./dL)
[2018-08-12 15:41] LABS: URINE APPEARANCE CLEAR (CLEAR); URINE COLOR YELLOW (YELLOW)
[2018-08-12] MEDS: Meropenem IV 1 gm in NS 1 GM/50 ML BAG IVPB SCH ×2 (15:41→21:37)
[2018-08-12 15:44] LABS: URINE AMORPHOUS SEDIMENT TRACE /hpf; URINE BACTERIA SMALL /hpf
--- NOTE | 2018-08-12 19:04 | CON ---
DATE OF CONSULTATION: 08/12/2018 The patient is in Room 276, Bed 2. CHIEF COMPLAINT: Weakness, positive urine culture x1 day duration. HISTORY OF PRESENT ILLNESS: This is an 78-year-old female with past medical history of diabetes mellitus, hyperthyroidism, coronary artery disease, atrial fibrillation, chronic obstructive lung disease, obesity, BMI of 31, history of left pyelonephritis, mild dementia, history of Klebsiella ESBL urinary tract infection in 06/2018, who was admitted because of a rapid atrial fibrillation and dehydration with AFib and rapid ventricular response, although the patient states that she was really admitted because of severe diarrhea, which is somewhat improved. The patient has been found to have rapid ventricular response with atrial fibrillation and RVR. The diarrhea is still somewhat present. The patient also complaining of urinary incontinence. No dysuria. No headaches or blurred vision. No cough, no chest pain, no abdominal pain. No new back pain. No rash. PAST MEDICAL HISTORY: Significant for coronary artery disease, atrial fibrillation, diabetes mellitus, hyperthyroidism, chronic obstructive lung disease, obesity with BMI of 31, history of ESBL Klebsiella urinary tract infection, history of left pyelonephritis, history of mild dementia. PAST SURGICAL HISTORY: Significant for cardiac catheterization with stent x2, cholecystectomy, appendectomy and hysterectomy. MEDICATIONS AT HOME: Verapamil, spironolactone, Zestril, Synthroid, insulin. ALLERGIES: She is allergic to penicillin, she states she gets a rash. Clarithromycin, she gets a rash. Flu vaccine, she gets a fever. Shrimp, questionable rash. PHYSICAL EXAMINATION: GENERAL: The patient is in bed. VITAL SIGNS: Temperature of 98, heart rate of 109, respiratory rate of 20, blood pressure is 140/70. HEENT: Unremarkable. NECK: Supple. LUNGS: Have decreased breath sounds. HEART: Normal S1 and S2. ABDOMEN: Soft, nontender. No rebound or guarding. LABORATORY EXAMINATION: White count of 5.2, hemoglobin of 13, platelets of 175,000. Coagulation is noted. Chemistries reveal a BUN of 14 and creatinine of 0.6. AST is 42. Urinalysis is noted. Serology, influenza is negative. Microbiology reveals Klebsiella and Enterococcus in the urine culture. Again, urinalysis is completely within normal limits. The patient had a chest x-ray, which was negative. ASSESSMENT/PLAN: This is an 78-year-old female with coronary artery disease, diabetes, atrial fibrillation, hyperthyroidism, chronic obstructive pulmonary disease, obesity, BMI of 31, history of ESBL Klebsiella urinary tract infection, history of left pyelonephritis, history of mild dementia, admitted now with severe diarrhea, found to have atrial fibrillation with rapid ventricular response. 1. Klebsiella and Enterococcus urinary tract infection in phase of a normal urinalysis, although the patient has urinary incontinence. 2. Atrial fibrillation with rapid ventricular response. 3. Diarrhea. The TSH is within normal limits. We will order blood cultures. We will repeat the urinalysis and urine culture. We will send stool cultures and stool for C. diff and start the patient empirically on meropenem 1 g every 8 hours. The patient is also on Solu-Medrol. We will make further recommendations upon availability of initial culture results, clinical response, repeat urinalysis and follow with you. Zachary Lyons MD
[2018-08-12] MEDS: Insulin Detemir 100 units/ml Vial (Levemir) SC SCH (21:36)
[2018-08-12] MEDS: MethylPREDNISolone 40 mg Vial IVP SCH (21:37)
--- NOTE | 2018-08-12 22:09 | PN ---
DATE: 08/12/2018 SUBJECTIVE: The note of the infertility medical assistant was reviewed. I did see the patient. I agree with his note. The patient had atrial fibrillation with rapid rate. She has been on atenolol, digoxin, verapamil. The patient is on Eliquis for anticoagulation. She is on Aldactone, lisinopril, but it has been placed on hold. She had an EF that was 55%. She is on Synthroid for hypothyroidism. She is on lisinopril for her hypertension. She was seen by physical therapy and was not evaluated. She is open to the idea of going to the transitional care unit if she qualifies. She is on a heart-healthy diet. We will get a transitional care evaluation. Tod Woodruff MD
[2018-08-13] MEDS: Meropenem IV 1 gm in NS 1 GM/50 ML BAG IVPB SCH ×3 (05:25→21:27)
[2018-08-13] MEDS: Levothyroxine 75 MCG TAB PO SCH (05:25)
[2018-08-13] MEDS ORDERED: Levothyroxine 75 MCG TAB PO SCH (06:00)
[2018-08-13 07:42] LABS: BASO # 0.01 K/mm3 (0.0-2.0); BASO % 0.2 % (0.0-3.0); HEMOGLOBIN 14.3 g/dL (12.0-16.0); LYMPH % 22.7 % (22.0-35.0); MEAN CORPUSCULAR HEMOGLOBIN 31.2 pg (25.0-35.0); MEAN CORPUSCULAR HGB CONC 33.6 g/dl (31.0-37.0); MEAN PLATELET VOLUME 11.9 fl (7.0-11.0); MONO # 0.4 (0.1-0.6); MONO % 7.9 % (1.0-6.0); RBC 4.58 10^6/uL (3.5-6.1); RED CELL DISTRIBUTION WIDTH 12.6 % (11.5-14.5); WHITE BLOOD COUNT 4.4 10^3/uL (4.5-11.0)
[2018-08-13] MEDS: Insulin Reg-MEDIUM-Coverage SC SCH ×4 (08:29→21:28)
[2018-08-13] MEDS: Insulin Lispro 1 UNITS/0.01 ML SC SCH ×3 (08:29→17:09)
[2018-08-13 08:30] LABS: ALB/GLOB RATIO 1.2 (1.1-1.8); ALBUMIN 3.8 g/dL (3.0-4.8); ALT/SGPT 38 U/L (7-56); AST/SGOT 26 U/L (14-36); BLOOD UREA NITROGEN 18 mg/dL (7-21); CALCIUM 9.6 mg/dL (8.4-10.5); GFR NON-AFRICAN AMERICAN > 60
[2018-08-13] MEDS: Verapamil 240 mg ER Tab PO SCH (10:05)
[2018-08-13] MEDS: MethylPREDNISolone 40 mg Vial IVP SCH ×2 (10:10→21:27)
--- NOTE | 2018-08-13 10:20 | CP.PCM.PN ---
<Hector Chavarria - Last Filed: 08/13/18 12:50> Subjective - Date & Time of Evaluation Date of Evaluation: 08/13/18 Time of Evaluation: 08:00 - Subjective Subjective: Medicine progress note: Patient seen and examined at bedside. No acute events overnight. No chest pain or palpitations. She still complains of some cough, and some urinary complaints. No other complaints 12 point ROS performed and negative other than stated above. Objective - Vital Signs/Intake and Output Vital Signs (last 24 hours): Temp Pulse Resp BP Pulse Ox 97.9 F 135 H 18 141/78 96 08/13/18 06:00 08/13/18 10:05 08/13/18 06:00 08/13/18 10:05 08/13/18 06:00 Intake and Output: 08/13/18 08/13/18 06:59 18:59 Intake Total 6 Balance 6 - Medications Medications: Current Medications Apixaban (Eliquis) 5 mg PO BID [facility]S [facility]; Protocol Last Admin: 08/13/18 10:05 Dose: 5 mg Meropenem (Merrem Iv 1 Gm Premix) 1 gm in 50 mls @ 100 mls/hr IVPB Q8 [facility]S [facility]; Protocol Stop: 08/21/18 14:02 Last Admin: 08/13/18 05:25 Dose: 100 mls/hr Insulin Detemir (Levemir) 20 unit SC HS [facility] 234 [facility]S [facility] Last Admin: 08/12/18 21:36 Dose: 20 units Insulin Human Lispro (Humalog) 12 units SC AC [facility] 234 [facility]S [facility] Last Admin: 08/13/18 08:29 Dose: 12 unit Insulin Human Regular (Humulin R Med) 0 units SC ACHS [facility] 234 BEDS AT [facility]; Protocol Last Admin: 08/13/18 08:29 Dose: 7 unit Levalbuterol HCl (Xopenex) 0.63 mg IH [id number] PRN PRN Reason: Shortness of Breath Levothyroxine Sodium (Synthroid) 75 mcg PO 0600 [facility] 234 [facility]S [facility] Last Admin: 08/13/18 05:25 Dose: 75 mcg Lisinopril (Zestril) 40 mg PO DAILY [facility] 234 B[facility]S AT [facility] Methylprednisolone (Solu-Medrol) 30 mg IVP Q12 [facility] 234 B[facility]S AT [facility] Last Admin: 08/13/18 10:10 Dose: 30 mg Spironolactone (Aldactone) 25 mg PO DAILY [facility] 234 BEDS AT [facility] Last Admin: 08/10/18 19:11 Dose: Not Given Verapamil HCl (Verapamil Inj) 2.5 mg IVP Q6H PRN PRN Reason: for heart rate >130 Last Admin: 08/13/18 08:09 Dose: 2.5 mg Verapamil HCl (Calan Sr Tab) 240 mg PO DAILY [facility] Last Admin: 08/13/18 10:05 Dose: 240 mg - Labs Labs: 08/13/18 07:15 08/13/18 07:15 PT 17.7 SECONDS (9.4-12.5) H 08/10/18 11:10 INR 1.57 08/10/18 11:10 APTT 37.3 Seconds (26.9-38.3) 08/10/18 11:10 - Constitutional Appears: No Acute Distress - Head Exam Head Exam: ATRAUMATIC, NORMOCEPHALIC - Eye Exam Eye Exam: EOMI - ENT Exam ENT Exam: Mucous Membranes Moist - Respiratory Exam Respiratory Exam: Clear to Ausculation Bilateral. absent: Rales, Rhonchi, Wheezes - Cardiovascular Exam Cardiovascular Exam: REGULAR RHYTHM, +S1, +S2 - GI/Abdominal Exam GI & Abdominal Exam: Soft. absent: Tenderness - Extremities Exam Extremities Exam: absent: Calf Tenderness, Pedal Edema - Neurological Exam Neurological Exam: Alert, Awake, Oriented x3 - Psychiatric Exam Psychiatric exam: Normal Mood - Skin Skin Exam: Dry, Warm Assessment and Plan - Assessment and Plan (Free Text) Assessment: 1. Atrial fibrillation with RVR. 2. Acute kidney injury - resolved 3. URI 4. Diabetes mellitus 5. Hypomagnesemia 6. COPD 7. Stress incontinence 8. Erythrocytosis - resolved 9. Hypothyroid 10. UTI Continue with Atenolol and verapamil, and is on anticoagulation with Eliquis. Continue to hold patient's home Aldactone, lisinopril as per cardiology. Echo with EF 55%. Cardiology is consulted awaiting further recommendations. Cont to monitor BUN/Cr for her JENNIFER. Doxycycline for her cough (patient is allergic to penicillin and clarithromycin). ID was consulted and Geoffrey was started for her UTI (hx of stress incontinence). Urine cx with Klebsiella pneumonia, and enterococcus feacalis. Continue with levothyroxine for her hypothyroid. Amanda nue with insulin Levemir 20 units at bedtime, lispro 12 units before meals for her diabetes. Continue with Xopenex for her COPD as needed, she was started on solumedrol 30 Q12. Follow-up septic workup. Follow-up pro calcitonin neg. Continue to monitor for any changes. Case and plan was reviewed and discussed with Dr. Woodruff. <Tod Woodruff - Last Filed: 08/13/18 16:48> Objective - Vital Signs/Intake and Output Vital Signs (last 24 hours): Temp Pulse Resp BP Pulse Ox 97.9 F 72 18 136/96 H 96 08/13/18 12:00 08/13/18 12:00 08/13/18 12:00 08/13/18 12:00 08/13/18 06:00 Intake and Output: 08/13/18 08/13/18 06:59 18:59 Intake Total 2065 Balance 2065 - Medications Medications: Current Medications Apixaban (Eliquis) 5 mg PO BID [facility] 234 [facility]S AT [facility]; Protocol Last Admin: 08/13/18 10:05 Dose: 5 mg Atenolol (Tenormin) 12.5 mg PO BID [facility] 234 [facility]S [facility] Last Admin: 08/13/18 16:38 Dose: Not Given Meropenem (Merrem Iv 1 Gm Premix) 1 gm in 50 mls @ 100 mls/hr IVPB Q8 [facility] 234 B[facility]S AT [facility]; Protocol Stop: 08/21/18 14:02 Last Admin: 08/13/18 15:13 Dose: 100 mls/hr Insulin Detemir (Levemir) 20 unit SC HS [facility] 234 B[facility]S AT [facility] Last Admin: 08/12/18 21:36 Dose: 20 units Insulin Human Lispro (Humalog) 12 units SC AC [facility] 234 BEDS AT [facility] Last Admin: 08/13/18 12:15 Dose: 12 unit Insulin Human Regular (Humulin R Med) 0 units SC ACHS [facility] 234 BEDS AT [facility]; Protocol Last Admin: 08/13/18 12:15 Dose: 7 unit Levalbuterol HCl (Xopenex) 0.63 mg IH [id number] PRN PRN Reason: Shortness of Breath Levothyroxine Sodium (Synthroid) 75 mcg PO 0600 [facility] 234 BEDS AT [facility] Last Admin: 08/13/18 05:25 Dose: 75 mcg Lisinopril (Zestril) 40 mg PO DAILY [facility] 234 BEDS AT [facility] Methylprednisolone (Solu-Medrol) 30 mg IVP Q12 [facility] 234 BEDS AT [facility] Last Admin: 08/13/18 10:10 Dose: 30 mg Spironolactone (Aldactone) 25 mg PO DAILY [facility] 234 BEDS AT [facility] Last Admin: 08/10/18 19:11 Dose: Not Given Verapamil HCl (Verapamil Inj) 2.5 mg IVP Q6H PRN PRN Reason: for heart rate >130 Last Admin: 08/13/18 08:09 Dose: 2.5 mg Verapamil HCl (Calan Sr Tab) 240 mg PO DAILY [facility] Last Admin: 08/13/18 10:05 Dose: 240 mg - Labs Labs: 08/13/18 07:15 08/13/18 07:15 PT 17.7 SECONDS (9.4-12.5) H 08/10/18 11:10 INR 1.57 08/10/18 11:10 APTT 37.3 Seconds (26.9-38.3) 08/10/18 11:10 Assessment and Plan - Assessment and Plan (Free Text) Assessment: Pt seen and examined by me. I have reviewed the note of the medical associate and I agree with it. I have discussed the assessment and plan with the resident. I have reviewed the medications and the last labs. Please see my dictated note.
--- NOTE | 2018-08-13 15:30 | CP.PCM.PN ---
Subjective - Date & Time of Evaluation Date of Evaluation: 08/13/18 Time of Evaluation: 10:50 - Subjective Subjective: Comfortable in bed, no abdominal pain, no dysuria currently, no fevers. Objective - Vital Signs/Intake and Output Vital Signs (last 24 hours): Temp Pulse Resp BP Pulse Ox 97.9 F 135 H 18 141/78 96 08/13/18 06:00 08/13/18 10:05 08/13/18 06:00 08/13/18 10:05 08/13/18 06:00 Intake and Output: 08/13/18 08/13/18 06:59 18:59 Intake Total 2065 Balance 2065 - Medications Medications: Current Medications Apixaban (Eliquis) 5 mg PO BID [facility]; Protocol Last Admin: 08/13/18 10:05 Dose: 5 mg Meropenem (Merrem Iv 1 Gm Premix) 1 gm in 50 mls @ 100 mls/hr IVPB Q8 [facility]; Protocol Stop: 08/21/18 14:02 Last Admin: 08/13/18 05:25 Dose: 100 mls/hr Insulin Detemir (Levemir) 20 unit SC HS [facility] Last Admin: 08/12/18 21:36 Dose: 20 units Insulin Human Lispro (Humalog) 12 units SC AC [facility] Last Admin: 08/13/18 08:29 Dose: 12 unit Insulin Human Regular (Humulin R Med) 0 units SC ACHS [facility]; Protocol Last Admin: 08/13/18 08:29 Dose: 7 unit Levalbuterol HCl (Xopenex) 0.63 mg IH [id number] PRN PRN Reason: Shortness of Breath Levothyroxine Sodium (Synthroid) 75 mcg PO 0600 [facility] Last Admin: 08/13/18 05:25 Dose: 75 mcg Lisinopril (Zestril) 40 mg PO DAILY [facility] Methylprednisolone (Solu-Medrol) 30 mg IVP Q12 [facility] Last Admin: 08/13/18 10:10 Dose: 30 mg Spironolactone (Aldactone) 25 mg PO DAILY [facility] Last Admin: 08/10/18 19:11 Dose: Not Given Verapamil HCl (Verapamil Inj) 2.5 mg IVP Q6H PRN PRN Reason: for heart rate >130 Last Admin: 08/13/18 08:09 Dose: 2.5 mg Verapamil HCl (Calan Sr Tab) 240 mg PO DAILY [facility] Last Admin: 08/13/18 10:05 Dose: 240 mg - Labs Labs: 08/13/18 07:15 08/13/18 07:15 PT 17.7 SECONDS (9.4-12.5) H 08/10/18 11:10 INR 1.57 08/10/18 11:10 APTT 37.3 Seconds (26.9-38.3) 08/10/18 11:10 - Constitutional Appears: Chronically Ill - Head Exam Head Exam: NORMAL INSPECTION - Respiratory Exam Respiratory Exam: Decreased Breath Sounds - Cardiovascular Exam Cardiovascular Exam: +S1, +S2 - GI/Abdominal Exam GI & Abdominal Exam: Soft. absent: Tenderness Assessment and Plan - Assessment and Plan (Free Text) Plan: Assessment Klebsiella and E. faecalis UTI R/O C. diff. associated diarrhea history of severe sepsis with hypoxic respiratory failure due to left sided pyelonephritis with Klebsiella bacteremia on top of atrial fibrillation with rapid ventricular response atrial fibrillation on anticoagulation COPD obesity with BMI 31 Plan continue Merrem day 2 follow up stool cx, stool for C. diff. follow up repeat urine cx will monitor clinically
--- NOTE | 2018-08-13 17:32 | PN ---
DATE: 08/13/2018 REASON FOR CONSULTATION AND FOLLOWUP: Atrial fibrillation with rapid ventricular rate, UTI, chest pain; no evidence of acute DC, and history of coronary artery disease. Feels better. PHYSICAL EXAMINATION: VITAL SIGNS: Temperature afebrile, heart rate 78, blood pressure 142/92. HEENT: PERRLA. Extraocular muscles intact. NECK: Supple. No carotid bruits or thyromegaly. CHEST: Clear to auscultation. HEART: S1 and S2 regular. ABDOMEN: Soft. EXTREMITIES: Clubbing and cyanosis negative. LABORATORY DATA: Blood workup as follows; WBC 4.5, hemoglobin 14, hematocrit 42.6, platelet count 185. Chemistry shows sodium 132, potassium 4.6, chloride 105, carbon dioxide 20, anion gap of 3, BUN 20, creatinine 0.6. IMPRESSION: An 78-year-old female with past medical history significant for chronic atrial fibrillation, on Eliquis, history of coronary artery disease, with multiple stents in 1991, 1999, and 2009 in left anterior descending artery and circumflex. Repeat catheterization in 2012 shows patent stent. The patient is usually followed by Dr. Kaur Khan's group and Dr. Bee. Recent catheterization according to Dr. Bee was stable coronaries. Admitted with atrial fibrillation and rapid ventricular rate. The patient was started on verapamil and digoxin slowed down, so digoxin was held. The patient still shows off and on tachycardiac episodes, possible acute bronchitis as well as urinary tract infection, growing Klebsiella pneumoniae and Enterococcus faecalis in the urine. Infectious Disease consult is pending. RECOMMENDATIONS: Continue antibiotics as per ID. Continue verapamil 240. We will add low dose of atenolol. Avoid digoxin if the patient becomes bradycardic. Will follow with you. Thank you doctor for the opportunity in taking care of the patient, Hawa Dominguez. Gail Modi MD
--- NOTE | 2018-08-13 20:35 | PN ---
DATE: 08/13/2018 SUBJECTIVE: I have seen and examined the patient. I have gone over the note of the nuclear medicine medical director and I do agree with. I was involved in the assessment and plan. The patient's medications and labs have been reviewed by me. In brief, the patient has atrial fibrillation that is better controlled at this point. IMPRESSION AND PLAN: She has acute kidney injury that has resolved. Her last echo shows an EF of 55%. She has UTI and is currently being treated for Klebsiella and Enterococcus with Meropenem. She is on Levothyroxine for her hypothyroidism. She is on Levemir for her diabetes as well as lispro. She is on Solu-Medrol for her acute COPD exacerbation. She is on Xopenex as well. The patient was seen by physical therapy, but she does not wish to go to Acute Rehab or Transitional Care Unit. At this point, the patient will continue current treatment. We will speak to ID about the length of the antibiotics that she will need to be on. Tod Woodruff MD
[2018-08-13] MEDS: Insulin Detemir 100 units/ml Vial (Levemir) SC SCH (21:27)
[2018-08-14] MEDS: Meropenem IV 1 gm in NS 1 GM/50 ML BAG IVPB SCH ×3 (05:29→21:19)
[2018-08-14] MEDS: Levothyroxine 75 MCG TAB PO SCH (05:29)
[2018-08-14 07:43] LABS: LYMPH # 1.1 (1.2-3.4); LYMPH % 14.8 % (22.0-35.0); MEAN CORPUSCULAR HEMOGLOBIN 31.4 pg (25.0-35.0); MEAN CORPUSCULAR HGB CONC 33.7 g/dl (31.0-37.0); MONO # 0.7 (0.1-0.6); RBC 4.46 10^6/uL (3.5-6.1); RED CELL DISTRIBUTION WIDTH 12.8 % (11.5-14.5); WHITE BLOOD COUNT 7.4 10^3/uL (4.5-11.0)
[2018-08-14 08:06] LABS: ALB/GLOB RATIO 1.2 (1.1-1.8); ALBUMIN 3.7 g/dL (3.0-4.8); ALT/SGPT 32 U/L (7-56); AST/SGOT 21 U/L (14-36); BLOOD UREA NITROGEN 23 mg/dL (7-21); CALCIUM 9.8 mg/dL (8.4-10.5); GFR NON-AFRICAN AMERICAN > 60
--- NOTE | 2018-08-14 08:06 | CP.PCM.PN ---
Subjective - Date & Time of Evaluation Date of Evaluation: 08/14/18 Time of Evaluation: 06:50 - Subjective Subjective: Awake, alert, denies shortness of breath, feels better, worried about her dog Reason for consultation and follow up: Cardiac evaluation of atrial fibrillation Seen and examined by me and Dr. Modi Objective - Vital Signs/Intake and Output Vital Signs (last 24 hours): Temp Pulse Resp BP Pulse Ox 97.8 F 122 H 20 132/75 97 08/14/18 06:00 08/14/18 06:00 08/14/18 06:00 08/14/18 06:00 08/14/18 06:00 Intake and Output: 08/14/18 08/14/18 06:59 18:59 Intake Total 120 Output Total 0 Balance 120 - Medications Medications: Current Medications Apixaban (Eliquis) 5 mg PO BID [facility]; Protocol Last Admin: 08/13/18 17:10 Dose: 5 mg Atenolol (Tenormin) 12.5 mg PO BID [facility] Last Admin: 08/13/18 17:10 Dose: 12.5 mg Meropenem (Merrem Iv 1 Gm Premix) 1 gm in 50 mls @ 100 mls/hr IVPB Q8 [facility]; Protocol Stop: 08/21/18 14:02 Last Admin: 08/14/18 05:29 Dose: 100 mls/hr Insulin Detemir (Levemir) 20 unit SC HS [facility] Last Admin: 08/13/18 21:27 Dose: 20 units Insulin Human Lispro (Humalog) 12 units SC AC [facility] Last Admin: 08/13/18 17:09 Dose: 12 unit Insulin Human Regular (Humulin R Med) 0 units SC ACHS [facility]; Protocol Last Admin: 08/13/18 21:28 Dose: 3 unit Levalbuterol HCl (Xopenex) 0.63 mg IH [id number] PRN PRN Reason: Shortness of Breath Levothyroxine Sodium (Synthroid) 75 mcg PO 0600 [facility] Last Admin: 08/14/18 05:29 Dose: 75 mcg Lisinopril (Zestril) 40 mg PO DAILY [facility] Methylprednisolone (Solu-Medrol) 30 mg IVP Q12 [facility] Last Admin: 08/13/18 21:27 Dose: 30 mg Spironolactone (Aldactone) 25 mg PO DAILY [facility] Last Admin: 08/10/18 19:11 Dose: Not Given Verapamil HCl (Verapamil Inj) 2.5 mg IVP Q6H PRN PRN Reason: for heart rate >130 Last Admin: 08/13/18 08:09 Dose: 2.5 mg Verapamil HCl (Calan Sr Tab) 240 mg PO DAILY [facility] Last Admin: 08/13/18 10:05 Dose: 240 mg - Labs Labs: 08/14/18 07:30 08/13/18 07:15 PT 17.7 SECONDS (9.4-12.5) H 08/10/18 11:10 INR 1.57 08/10/18 11:10 APTT 37.3 Seconds (26.9-38.3) 08/10/18 11:10 - Constitutional Appears: Non-toxic, No Acute Distress - Head Exam Head Exam: NORMAL INSPECTION, NORMOCEPHALIC - Eye Exam Eye Exam: Normal appearance Pupil Exam: NORMAL ACCOMODATION - ENT Exam ENT Exam: Mucous Membranes Moist, Normal Exam - Respiratory Exam Respiratory Exam: Decreased Breath Sounds, NORMAL BREATHING PATTERN - Cardiovascular Exam Cardiovascular Exam: Irregular Rhythm, +S1, +S2 Additional comments: Telemetry Atrial fibrillation - GI/Abdominal Exam GI & Abdominal Exam: Soft, Normal Bowel Sounds - Extremities Exam Extremities Exam: Full ROM, Normal Capillary Refill - Neurological Exam Neurological Exam: Alert, Awake, Oriented x3 - Psychiatric Exam Psychiatric exam: Normal Affect, Normal Mood - Skin Skin Exam: Dry, Normal Color, Warm Assessment and Plan - Assessment and Plan (Free Text) Assessment: An 78 year old female with came in to the ER due to generalized weakness and cough and diarrhea. History of COPD,hypertension, diabetes, atrial fibrillation on Eliquis, coronary artery disease, post stents in 1991,1999, and 2009 LAD and circumflex, repeat cardiac cath in 2012, patent stents recently ea rly of 2018. She follows up with and Dr. Andrade group. In ER had rapid atrial fibrillation thus consult was called. Digoxin was given in ER. Troponin normal. Uncontrolled rate atrial fibrillation. Restarted Verapamil. and Digoxin .Expiratory wheezing, started low dose Solumedrol. Changed Albuterol to Xopenex prevent further increase heart rate. Lovenox discontinued and resume Eliquis. Urine culture positive for Klebsiella pneumonia/Enterococcus faecalis. ID on consult. Episode of bradycardia and pauses,Digoxin and Atenolol discontinued, however went in to rapid rate of atrial fibrillation. Off and on rapid rate of atrial fibrillation, restarted Atenolol. Will monitor closely. May probably need PPM eventually. Plan: Denies shortness of breath, Off and on rapid heart rate of atrial fibrillation Restarted on atenolol Will monitor closely, may eventually need PPM Lovenox discontinued and resumed Eliquis. Blood pressure stable On Eliquis 5 mg BID, Tenormin 12.5 mg BID, Lovenox 70 mg daily, Synthroid 75 mcg daily, Lisinopril 40 mg daily, Aldactone 25 mg daily, Verapamil 240 mg daily Continue current treatment Continue current medications Continue IV antibiotics per ID (UTI) Glucose control Will follow up Plan and treatment discussed with Dr. Modi
[2018-08-14] MEDS: Insulin Lispro 1 UNITS/0.01 ML SC SCH ×3 (08:20→18:12)
[2018-08-14] MEDS: Insulin Reg-MEDIUM-Coverage SC SCH ×4 (08:21→21:20)
[2018-08-14] MEDS: Verapamil 240 mg ER Tab PO SCH (10:18)
[2018-08-14] MEDS: MethylPREDNISolone 40 mg Vial IVP SCH ×2 (10:19→21:20)
--- NOTE | 2018-08-14 10:54 | CP.PCM.PN ---
<Hector Chavarria - Last Filed: 08/14/18 10:54> Subjective - Date & Time of Evaluation Date of Evaluation: 08/14/18 Time of Evaluation: 07:30 - Subjective Subjective: Medicine progress note: Patient seen and examined at bedside. No acute events overnight. C/o some dysuria. States her cough has improved. No other complaints 12 point ROS performed and negative other than stated above. Objective - Vital Signs/Intake and Output Vital Signs (last 24 hours): Temp Pulse Resp BP Pulse Ox 97.8 F 131 H 20 139/75 97 08/14/18 06:00 08/14/18 10:19 08/14/18 06:00 08/14/18 10:08/14/18 06:00 Intake and Output: 08/14/18 08/14/18 06:59 18:59 Intake Total 120 Output Total 0 Balance 120 - Medications Medications: Current Medications Apixaban (Eliquis) 5 mg PO BID [facility]; Protocol Last Admin: 08/14/18 10:18 Dose: 5 mg Atenolol (Tenormin) 12.5 mg PO BID [facility] Last Admin: 08/14/18 10:19 Dose: 12.5 mg Meropenem (Merrem Iv 1 Gm Premix) 1 gm in 50 mls @ 100 mls/hr IVPB Q8 [facility]; Protocol Stop: 08/21/18 14:02 Last Admin: 08/14/18 05:29 Dose: 100 mls/hr Insulin Detemir (Levemir) 20 unit SC HS [facility] Last Admin: 08/13/18 21:27 Dose: 20 units Insulin Human Lispro (Humalog) 12 units SC AC [facility] Last Admin: 08/14/18 08:20 Dose: 12 unit Insulin Human Regular (Humulin R Med) 0 units SC ACHS [facility]; Protocol Last Admin: 08/14/18 08:21 Dose: 8 unit Levalbuterol HCl (Xopenex) 0.63 mg IH [id number] PRN PRN Reason: Shortness of Breath Levothyroxine Sodium (Synthroid) 75 mcg PO 0600 [facility] Last Admin: 08/14/18 05:29 Dose: 75 mcg Lisinopril (Zestril) 40 mg PO DAILY [facility] Methylprednisolone (Solu-Medrol) 30 mg IVP Q12 [facility] Last Admin: 08/14/18 10:19 Dose: 30 mg Spironolactone (Aldactone) 25 mg PO DAILY [facility] Last Admin: 08/10/18 19:11 Dose: Not Given Verapamil HCl (Verapamil Inj) 2.5 mg IVP Q6H PRN PRN Reason: for heart rate >130 Last Admin: 08/13/18 08:09 Dose: 2.5 mg Verapamil HCl (Calan Sr Tab) 240 mg PO DAILY [facility] Last Admin: 08/14/18 10:18 Dose: 240 mg - Labs Labs: 08/14/18 07:30 08/14/18 07:30 PT 17.7 SECONDS (9.4-12.5) H 08/10/18 11:10 INR 1.57 08/10/18 11:10 APTT 37.3 Seconds (26.9-38.3) 08/10/18 11:10 - Constitutional Appears: Toxic - Head Exam Head Exam: ATRAUMATIC, NORMOCEPHALIC - Eye Exam Eye Exam: EOMI - ENT Exam ENT Exam: Mucous Membranes Moist - Respiratory Exam Respiratory Exam: Clear to Ausculation Bilateral. absent: Rales, Wheezes - Cardiovascular Exam Cardiovascular Exam: REGULAR RHYTHM, +S1, +S2 - GI/Abdominal Exam GI & Abdominal Exam: Soft. absent: Distended, Tenderness - Extremities Exam Extremities Exam: absent: Calf Tenderness, Pedal Edema - Neurological Exam Neurological Exam: Alert, Awake, Oriented x3 - Psychiatric Exam Psychiatric exam: Normal Mood - Skin Skin Exam: Dry, Warm Assessment and Plan - Assessment and Plan (Free Text) Assessment: 1. Atrial fibrillation with RVR, resolved 2. Acute kidney injury - resolved 3. UTI 2/2 Klebsiella pneumonia, and enterococcus feacalis 4. Diabetes mellitus type 2, insulin dependent 5. Hypomagnesemia, resolved 6. COPD 7. Stress incontinence 8. Erythrocytosis - resolved 9. Hypothyroid 10. URI, resolved For her Afib, continue with atenolol and verapamil, and is on anticoagulation with Eliquis. Continue to hold patient's home Aldactone, lisinopril as per cardiology. Echo with EF 55%. Cardiology is consulted awaiting further recommendations. Cont to monitor BUN/Cr for her JENNIFER now resolved. ID was consulted cont Geoffrey for her UTI (hx of stress incontinence). Urine cx with Klebsiella pneumonia, and enterococcus feacalis. Awaiting repeat urine cultures. F/u c.diff and toxin. Continue with levothyroxine for her hypothyroid. Continue with insulin Levemir 20 units at bedtime, lispro 12 units before meals for her diabetes mellitus. Hyperglycemia likely 2/2 steroids. Continue with Xopenex, and cont solumedrol for her COPD, will consider taper solumedrol. Heart healthy diet. Continue to monitor for any changes. Case and plan was reviewed and discussed with Dr. Woodruff. <Tod Woodruff - Last Filed: 08/14/18 19:44> Objective - Vital Signs/Intake and Output Vital Signs (last 24 hours): Temp Pulse Resp BP Pulse Ox 98.2 F 90 20 122/77 97 08/14/18 17:17 08/14/18 18:00 08/14/18 17:17 08/14/18 17:17 08/14/18 06:00 Intake and Output: 08/14/18 08/15/18 18:59 06:59 Intake Total 100 Balance 100 - Medications Medications: Current Medications Apixaban (Eliquis) 5 mg PO BID [facility]; Protocol Last Admin: 08/14/18 18:12 Dose: 5 mg Atenolol (Tenormin) 25 mg PO BID [facility] Meropenem (Merrem Iv 1 Gm Premix) 1 gm in 50 mls @ 100 mls/hr IVPB Q8 [facility]; Protocol Stop: 08/21/18 14:02 Last Admin: 08/14/18 14:28 Dose: 100 mls/hr Insulin Detemir (Levemir) 20 unit SC HS [facility] Last Admin: 08/13/18 21:27 Dose: 20 units Insulin Human Lispro (Humalog) 12 units SC AC [facility] Last Admin: 08/14/18 18:12 Dose: 12 unit Insulin Human Regular (Humulin R Med) 0 units SC ACHS [facility]; Protocol Last Admin: 08/14/18 18:13 Dose: 7 unit Levalbuterol HCl (Xopenex) 0.63 mg IH [id number] PRN PRN Reason: Shortness of Breath Levothyroxine Sodium (Synthroid) 75 mcg PO 0600 [facility] Last Admin: 08/14/18 05:29 Dose: 75 mcg Lisinopril (Zestril) 40 mg PO DAILY [facility] Methylprednisolone (Solu-Medrol) 30 mg IVP Q12 [facility] Last Admin: 08/14/18 10:19 Dose: 30 mg Spironolactone (Aldactone) 25 mg PO DAILY [facility] Last Admin: 08/10/18 19:11 Dose: Not Given Verapamil HCl (Verapamil Inj) 2.5 mg IVP Q6H PRN PRN Reason: for heart rate >130 Last Admin: 08/13/18 08:09 Dose: 2.5 mg Verapamil HCl (Calan Sr Tab) 240 mg PO DAILY [facility] Last Admin: 08/14/18 10:18 Dose: 240 mg - Labs Labs: 08/14/18 07:30 08/14/18 07:30 PT 17.7 SECONDS (9.4-12.5) H 08/10/18 11:10 INR 1.57 08/10/18 11:10 APTT 37.3 Seconds (26.9-38.3) 08/10/18 11:10 Assessment and Plan - Assessment and Plan (Free Text) Assessment: Pt seen and examined by me. I have reviewed the note of the medical field representative and I agree with it. I have discussed the assessment and plan with the resident. I have reviewed the medications and the last labs.
--- NOTE | 2018-08-14 13:03 | CP.PCM.PCO ---
Physician Communication Note - Physician Communication Note Physician Communication Note: Tachy mid 130's unable to participate in PT eval at this time
--- NOTE | 2018-08-14 14:37 | CP.PCM.PN ---
Subjective - Date & Time of Evaluation Date of Evaluation: 08/14/18 Time of Evaluation: 12:55 - Subjective Subjective: No fevers, not in distress. Objective - Vital Signs/Intake and Output Vital Signs (last 24 hours): Temp Pulse Resp BP Pulse Ox 97.9 F 72 18 136/96 H 96 08/13/18 12:00 08/13/18 12:00 08/13/18 12:00 08/13/18 12:00 08/13/18 06:00 Intake and Output: 08/13/18 08/13/18 06:59 18:59 Intake Total 2065 Balance 2065 - Medications Medications: Current Medications Apixaban (Eliquis) 5 mg PO BID [facility]; Protocol Last Admin: 08/13/18 10:05 Dose: 5 mg Atenolol (Tenormin) 12.5 mg PO BID [facility] Meropenem (Merrem Iv 1 Gm Premix) 1 gm in 50 mls @ 100 mls/hr IVPB Q8 [facility]; Pro tocol Stop: 08/21/18 14:02 Last Admin: 08/13/18 05:25 Dose: 100 mls/hr Insulin Detemir (Levemir) 20 unit SC HS [facility] Last Admin: 08/12/18 21:36 Dose: 20 units Insulin Human Lispro (Humalog) 12 units SC AC [facility] Last Admin: 08/13/18 12:15 Dose: 12 unit Insulin Human Regular (Humulin R Med) 0 units SC ACHS [facility]; Protocol Last Admin: 08/13/18 12:15 Dose: 7 unit Levalbuterol HCl (Xopenex) 0.63 mg IH [id number] PRN PRN Reason: Shortness of Breath Levothyroxine Sodium (Synthroid) 75 mcg PO 0600 [facility] Last Admin: 08/13/18 05:25 Dose: 75 mcg Lisinopril (Zestril) 40 mg PO DAILY [facility] Methylprednisolone (Solu-Medrol) 30 mg IVP Q12 [facility] Last Admin: 08/13/18 10:10 Dose: 30 mg Spironolactone (Aldactone) 25 mg PO DAILY [facility] Last Admin: 08/10/18 19:11 Dose: Not Given Verapamil HCl (Verapamil Inj) 2.5 mg IVP Q6H PRN PRN Reason: for heart rate >130 Last Admin: 08/13/18 08:09 Dose: 2.5 mg Verapamil HCl (Calan Sr Tab) 240 mg PO DAILY [facility] Last Admin: 08/13/18 10:05 Dose: 240 mg - Labs Labs: 08/13/18 07:15 08/13/18 07:15 PT 17.7 SECONDS (9.4-12.5) H 08/10/18 11:10 INR 1.57 08/10/18 11:10 APTT 37.3 Seconds (26.9-38.3) 08/10/18 11:10 - Constitutional Appears: Chronically Ill - Head Exam Head Exam: NORMAL INSPECTION - Respiratory Exam Respiratory Exam: Decreased Breath Sounds - Cardiovascular Exam Cardiovascular Exam: +S1, +S2 - GI/Abdominal Exam GI & Abdominal Exam: Soft. absent: Tenderness Assessment and Plan - Assessment and Plan (Free Text) Plan: Assessment Klebsiella and E. faecalis UTI R/O C. diff. associated diarrhea history of severe sepsis with hypoxic respiratory failure due to left sided pyelonephritis with Klebsiella bacteremia on top of atrial fibrillation with rapid ventricular response atrial fibrillation on anticoagulation COPD obesity with BMI 31 Plan continue Merrem day 3 follow up stool cx, stool for C. diff. follow up repeat urine cx will continue to monitor clinically
[2018-08-14] MEDS: Insulin Detemir 100 units/ml Vial (Levemir) SC SCH (21:19)
--- NOTE | 2018-08-15 00:47 | PN ---
DATE: 08/14/2018 The patient was seen and examined. I did review the notes of the medical science liaison, and I do agree with the note. I did participate in the assessment and plan of care. The patient was initially admitted to the hospital because of atrial fibrillation. She is doing well with her medication. She is on atenolol and verapamil. She has EF of 55%. She had low magnesium, this was replaced. She is on Levemir for her diabetes. She is going to continue with a heart-healthy diet. She is on meropenem for antibiotics. She is on Synthroid for hypothyroidism. The patient is using physical therapy. Tod Woodruff MD
[2018-08-15] MEDS: Levothyroxine 75 MCG TAB PO SCH (05:39)
[2018-08-15] MEDS: Meropenem IV 1 gm in NS 1 GM/50 ML BAG IVPB SCH ×3 (05:39→21:36)
[2018-08-15 07:12] LABS: HEMOGLOBIN 14.2 g/dL (12.0-16.0); LYMPH # 1.4 (1.2-3.4); LYMPH % 13.6 % (22.0-35.0); MEAN CELL VOLUME 93.8 fl (80.0-105.0); MEAN CORPUSCULAR HEMOGLOBIN 31.4 pg (25.0-35.0); MEAN CORPUSCULAR HGB CONC 33.5 g/dl (31.0-37.0); MEAN PLATELET VOLUME 11.9 fl (7.0-11.0); MONO # 0.8 (0.1-0.6); MONO % 8.3 % (1.0-6.0); RBC 4.52 10^6/uL (3.5-6.1)
--- NOTE | 2018-08-15 07:24 | CP.PCM.PN ---
Subjective - Date & Time of Evaluation Date of Evaluation: 08/15/18 Time of Evaluation: 06:40 - Subjective Subjective: Awake, alert, denies shortness of breath, Reason for consultation and follow up: Cardiac evaluation of atrial fibrillation, History of COPD,hypertension, diabetes, atrial fibrillation on Eliquis, coronary artery disease, post stents, Seen and examined by me and Dr. Modi Objective - Vital Signs/Intake and Output Vital Signs (last 24 hours): Temp Pulse Resp BP Pulse Ox 97.8 F 81 20 127/96 H 98 08/15/18 06:00 08/15/18 06:00 08/15/18 06:00 08/15/18 06:00 08/15/18 06:00 Intake and Output: 08/15/18 08/15/18 06:59 18:59 Intake Total 360 Output Total 250 Balance 110 - Medications Medications: Current Medications Apixaban (Eliquis) 5 mg PO BID [facility]; Protocol Last Admin: 08/14/18 18:12 Dose: 5 mg Atenolol (Tenormin) 25 mg PO BID [facility] Last Admin: 08/14/18 21:22 Dose: 25 mg Meropenem (Merrem Iv 1 Gm Premix) 1 gm in 50 mls @ 100 mls/hr IVPB Q8 [facility]; Protocol Stop: 08/21/18 14:02 Last Admin: 08/15/18 05:39 Dose: 100 mls/hr Insulin Detemir (Levemir) 20 unit SC HS [facility] Last Admin: 08/14/18 21:19 Dose: 20 units Insulin Human Lispro (Humalog) 12 units SC AC [facility] Last Admin: 08/14/18 18:12 Dose: 12 unit Insulin Human Regular (Humulin R Med) 0 units SC ACHS [facility]; Protocol Last Admin: 08/14/18 21:20 Dose: 3 unit Levalbuterol HCl (Xopenex) 0.63 mg IH [id number] PRN PRN Reason: Shortness of Breath Levothyroxine Sodium (Synthroid) 75 mcg PO 0600 [facility] Last Admin: 08/15/18 05:39 Dose: 75 mcg Lisinopril (Zestril) 40 mg PO DAILY [facility] Methylprednisolone (Solu-Medrol) 30 mg IVP Q12 [facility] Last Admin: 08/14/18 21:20 Dose: 30 mg Spironolactone (Aldactone) 25 mg PO DAILY [facility] Last Admin: 08/10/18 19:11 Dose: Not Given Verapamil HCl (Verapamil Inj) 2.5 mg IVP Q6H PRN PRN Reason: for heart rate >130 Last Admin: 08/13/18 08:09 Dose: 2.5 mg Verapamil HCl (Calan Sr Tab) 240 mg PO DAILY [facility] Last Admin: 08/14/18 10:18 Dose: 240 mg - Labs Labs: 08/15/18 06:55 08/14/18 07:30 PT 17.7 SECONDS (9.4-12.5) H 08/10/18 11:10 INR 1.57 08/10/18 11:10 APTT 37.3 Seconds (26.9-38.3) 08/10/18 11:10 - Constitutional Appears: Non-toxic, No Acute Distress - Head Exam Head Exam: NORMAL INSPECTION, NORMOCEPHALIC - Eye Exam Eye Exam: Normal appearance Pupil Exam: NORMAL ACCOMODATION - ENT Exam ENT Exam: Mucous Membranes Moist, Normal Exam - Respiratory Exam Respiratory Exam: Decreased Breath Sounds, Clear to Ausculation Bilateral, NORMAL BREATHING PATTERN - Cardiovascular Exam Cardiovascular Exam: +S1, +S2 - GI/Abdominal Exam GI & Abdominal Exam: Soft, Normal Bowel Sounds - Extremities Exam Extremities Exam: Full ROM, Normal Capillary Refill - Neurological Exam Neurological Exam: Alert, Awake, Oriented x3 - Psychiatric Exam Psychiatric exam: Normal Affect, Normal Mood - Skin Skin Exam: Dry, Normal Color, Warm Assessment and Plan - Assessment and Plan (Free Text) Assessment: An 78 year old female with came in to the ER due to generalized weakness and cough and diarrhea. History of COPD,hypertension, diabetes, atrial fibrillation on Eliquis, coronary artery disease, post stents in 1991,1999, and 2009 LAD and circumflex, repeat cardiac cath in 2012, patent stents recently early of 2018. She follows up with and Dr. Andrade group. In ER had rapid atrial fibrillation thus consult was called. Digoxin was given in ER. Troponin normal. Uncontrolled rate atrial fibrillation. Restarted Verapamil. and Digoxin .Expiratory wheezing, started low dose Solumedrol. Changed Albuterol to Xopenex prevent further increase heart rate. Lovenox discontinued and resume Eliquis. Urine culture positive for Klebsiella pneumonia/Enterococcus faecalis. ID on consult. Episode of bradycardia and pauses,Digoxin and Atenolol discontinued, however went in to rapid rate of atrial fibrillation. Off and on rapid rate of atrial fibrillation, restarted Atenolol. Will monitor closely. May probably need PPM eventually.Discontinued telemetry.Repeat urine culture sent. discharge planning. Plan: Feels better, wanted to go home to take care of her dog Denies shortness of breath, Off and on rapid heart rate of atrial fibrillation On Atenolol and Verapamil Blood pressure stable On Eliquis 5 mg BID, Tenormin 12.5 mg BID, Lovenox 70 mg daily, Synthroid 75 mcg daily, Lisinopril 40 mg daily, Aldactone 25 mg daily, Verapamil 240 mg daily Continue current treatment Continue current medications Continue IV antibiotics per ID (UTI) Repeat urine culture sent Glucose control Will follow up Plan and treatment discussed with Dr. Modi
[2018-08-15 07:47] LABS: ALB/GLOB RATIO 1.2 (1.1-1.8); ALBUMIN 3.5 g/dL (3.0-4.8); ALT/SGPT 51 U/L (7-56); AST/SGOT 40 U/L (14-36); BLOOD UREA NITROGEN 27 mg/dL (7-21); CALCIUM 9.7 mg/dL (8.4-10.5); GFR NON-AFRICAN AMERICAN > 60
[2018-08-15] MEDS: Insulin Reg-MEDIUM-Coverage SC SCH ×3 (09:00→16:59)
[2018-08-15] MEDS: Insulin Lispro 1 UNITS/0.01 ML SC SCH ×3 (09:01→16:59)
[2018-08-15] MEDS: Verapamil 240 mg ER Tab PO SCH (09:03)
[2018-08-15] MEDS: MethylPREDNISolone 40 mg Vial IVP SCH (09:04)
--- NOTE | 2018-08-15 14:00 | CP.PCM.PN ---
Subjective - Date & Time of Evaluation Date of Evaluation: 08/15/18 Time of Evaluation: 10:35 - Subjective Subjective: No fevers, not in distress. Objective - Vital Signs/Intake and Output Vital Signs (last 24 hours): Temp Pulse Resp BP Pulse Ox 98 F 69 18 139/107 H 97 08/14/18 12:00 08/14/18 12:00 08/14/18 12:00 08/14/18 12:00 08/14/18 06:00 Intake and Output: 08/14/18 08/14/18 06:59 18:59 Intake Total 120 Output Total 0 Balance 120 - Medications Medications: Current Medications Apixaban (Eliquis) 5 mg PO BID [facility]; Protocol Last Admin: 08/14/18 10:18 Dose: 5 mg Atenolol (Tenormin) 25 mg PO BID [facility] Meropenem (Merrem Iv 1 Gm Premix) 1 gm in 50 mls @ 100 mls/hr IVPB Q8 [facility]; Protocol Stop: 08/21/18 14:02 Last Admin: 08/14/18 14:28 Dose: 100 mls/hr Insulin Detemir (Levemir) 20 unit SC HS [facility] Last Admin: 08/13/18 21:27 Dose: 20 units Insulin Human Lispro (Humalog) 12 units SC AC [facility] Last Admin: 08/14/18 12:28 Dose: 12 unit Insulin Human Regular (Humulin R Med) 0 units SC ACHS [facility]; Protocol Last Admin: 08/14/18 12:27 Dose: 8 unit Levalbuterol HCl (Xopenex) 0.63 mg IH [id number] PRN PRN Reason: Shortness of Breath Levothyroxine Sodium (Synthroid) 75 mcg PO 0600 [facility] Last Admin: 08/14/18 05:29 Dose: 75 mcg Lisinopril (Zestril) 40 mg PO DAILY [facility] Methylprednisolone (Solu-Medrol) 30 mg IVP Q12 [facility] Last Admin: 08/14/18 10:19 Dose: 30 mg Spironolactone (Aldactone) 25 mg PO DAILY [facility] Last Admin: 08/10/18 19:11 Dose: Not Given Verapamil HCl (Verapamil Inj) 2.5 mg IVP Q6H PRN PRN Reason: for heart rate >130 Last Admin: 08/13/18 08:09 Dose: 2.5 mg Verapamil HCl (Calan Sr Tab) 240 mg PO DAILY [facility] Last Admin: 08/14/18 10:18 Dose: 240 mg - Labs Labs: 08/14/18 07:30 08/14/18 07:30 PT 17.7 SECONDS (9.4-12.5) H 08/10/18 11:10 INR 1.57 08/10/18 11:10 APTT 37.3 Seconds (26.9-38.3) 08/10/18 11:10 - Constitutional Appears: Chronically Ill - Head Exam Head Exam: NORMAL INSPECTION - Respiratory Exam Respiratory Exam: Decreased Breath Sounds - Cardiovascular Exam Cardiovascular Exam: +S1, +S2 - GI/Abdominal Exam GI & Abdominal Exam: Soft. absent: Tenderness Assessment and Plan - Assessment and Plan (Free Text) Plan: Assessment Klebsiella and E. faecalis UTI history of severe sepsis with hypoxic respiratory failure due to left sided pyelonephritis with Klebsiella bacteremia on top of atrial fibrillation with rapid ventricular response atrial fibrillation on anticoagulation COPD obesity with BMI 31 Plan continue Merrem day 4 follow up repeat urine cx will continue to monitor clinically discussed with Dr. Woodruff's team
--- NOTE | 2018-08-15 14:17 | CP.PCM.PN ---
<Hector Chavarria - Last Filed: 08/15/18 14:17> Subjective - Date & Time of Evaluation Date of Evaluation: 08/15/18 Time of Evaluation: 07:30 - Subjective Subjective: Medicine progress note: Patient seen and examined at bedside. No acute events overnight. Cough has improved. Mild dyuria. No other complaints 12 point ROS performed and negative other than stated above. Objective - Vital Signs/Intake and Output Vital Signs (last 24 hours): Temp Pulse Resp BP Pulse Ox 97.9 F 75 18 117/78 98 08/15/18 11:45 08/15/18 11:45 08/15/18 11:45 08/15/18 11:45 08/15/18 06:00 Intake and Output: 08/15/18 08/15/18 06:59 18:59 Intake Total 360 Output Total 250 Balance 110 - Medications Medications: Current Medications Apixaban (Eliquis) 5 mg PO BID [facility]; Protocol Last Admin: 08/15/18 09:07 Dose: 5 mg Atenolol (Tenormin) 25 mg PO BID [facility] Last Admin: 08/15/18 09:04 Dose: 25 mg Meropenem (Merrem Iv 1 Gm Premix) 1 gm in 50 mls @ 100 mls/hr IVPB Q8 [facility]; Protocol Stop: 08/21/18 14:02 Last Admin: 08/15/18 05:39 Dose: 100 mls/hr Insulin Detemir (Levemir) 20 unit SC HS [facility] Last Admin: 08/14/18 21:19 Dose: 20 units Insulin Human Lispro (Humalog) 12 units SC AC [facility] Last Admin: 08/15/18 13:01 Dose: 12 unit Insulin Human Regular (Humulin R Med) 0 units SC ACHS [facility]; Protocol Last Admin: 08/15/18 13:01 Dose: 10 unit Levalbuterol HCl (Xopenex) 0.63 mg IH [id number] PRN PRN Reason: Shortness of Breath Levothyroxine Sodium (Synthroid) 75 mcg PO 0600 [facility] Last Admin: 08/15/18 05:39 Dose: 75 mcg Verapamil HCl (Verapamil Inj) 2.5 mg IVP Q6H PRN PRN Reason: for heart rate >130 Last Admin: 08/13/18 08:09 Dose: 2.5 mg Verapamil HCl (Calan Sr Tab) 240 mg PO DAILY [facility] Last Admin: 08/15/18 09:03 Dose: 240 mg - Labs Labs: 08/15/18 06:55 08/15/18 06:55 PT 17.7 SECONDS (9.4-12.5) H 08/10/18 11:10 INR 1.57 08/10/18 11:10 APTT 37.3 Seconds (26.9-38.3) 08/10/18 11:10 - Constitutional Appears: No Acute Distress - Head Exam Head Exam: ATRAUMATIC, NORMOCEPHALIC - Eye Exam Eye Exam: EOMI - ENT Exam ENT Exam: Mucous Membranes Moist - Respiratory Exam Respiratory Exam: Clear to Ausculation Bilateral. absent: Rales, Rhonchi, Wheezes - Cardiovascular Exam Cardiovascular Exam: REGULAR RHYTHM, +S1, +S2 - GI/Abdominal Exam GI & Abdominal Exam: Soft. absent: Distended, Tenderness - Extremities Exam Extremities Exam: absent: Calf Tenderness, Pedal Edema - Neurological Exam Neurological Exam: Alert, Awake, Oriented x3 - Psychiatric Exam Psychiatric exam: Normal Mood - Skin Skin Exam: Dry, Normal Color Assessment and Plan - Assessment and Plan (Free Text) Assessment: 1. Atrial fibrillation with RVR, resolved 2. Acute kidney injury - resolved 3. UTI 2/2 Klebsiella pneumonia, and enterococcus feacalis 4. Diabetes mellitus type 2, insulin dependent 5. Hypomagnesemia, resolved 6. COPD 7. Stress incontinence 8. Erythrocytosis - resolved 9. Hypothyroid 10. URI, resolved For her Afib, continue with atenolol and verapamil, and is on anticoagulation with Eliquis. Aldactone, lisinopril were d/ankush as per cardiology, f/u recs. Echo with EF 55%. Cont to monitor BUN/Cr for her JENNIFER now resolved. ID was consulted cont Geoffrey for her UTI (hx of stress incontinence). Urine cx with Klebs iella pneumonia, and enterococcus feacalis. Awaiting repeat urine cultures. F/u c.diff and toxin. Continue with levothyroxine for her hypothyroid. Continue with insulin Levemir 20 units at bedtime, lispro 12 units before meals for her diabetes mellitus. Continue with Xopenex, and for her COPD, d/ankush solumedrol. Heart healthy diet. Continue to monitor for any changes. Case and plan was reviewed and discussed with Dr. Woodruff. <Tod Woodruff - Last Filed: 08/15/18 16:10> Objective - Vital Signs/Intake and Output Vital Signs (last 24 hours): Temp Pulse Resp BP Pulse Ox 97.9 F 75 18 117/78 98 08/15/18 11:45 08/15/18 11:45 08/15/18 11:45 08/15/18 11:45 08/15/18 06:00 Intake and Output: 08/15/18 08/15/18 06:59 18:59 Intake Total 360 Output Total 250 Balance 110 - Medications Medications: Current Medications Apixaban (Eliquis) 5 mg PO BID [facility]; Protocol Last Admin: 08/15/18 09:07 Dose: 5 mg Atenolol (Tenormin) 25 mg PO BID [facility] Last Admin: 08/15/18 09:04 Dose: 25 mg Meropenem (Merrem Iv 1 Gm Premix) 1 gm in 50 mls @ 100 mls/hr IVPB Q8 [facility]; Protocol Stop: 08/21/18 14:02 Last Admin: 08/15/18 14:30 Dose: 100 mls/hr Insulin Detemir (Levemir) 20 unit SC HS [facility] Last Admin: 08/14/18 21:19 Dose: 20 units Insulin Human Lispro (Humalog) 12 units SC AC [facility] Last Admin: 08/15/18 13:01 Dose: 12 unit Insulin Human Regular (Humulin R Med) 0 units SC ACHS [facility]; Protocol Last Admin: 08/15/18 13:01 Dose: 10 unit Levalbuterol HCl (Xopenex) 0.63 mg IH [id number] PRN PRN Reason: Shortness of Breath Levothyroxine Sodium (Synthroid) 75 mcg PO 0600 [facility] Last Admin: 08/15/18 05:39 Dose: 75 mcg Verapamil HCl (Verapamil Inj) 2.5 mg IVP Q6H PRN PRN Reason: for heart rate >130 Last Admin: 08/13/18 08:09 Dose: 2.5 mg Verapamil HCl (Calan Sr Tab) 240 mg PO DAILY [facility] Last Admin: 08/15/18 09:03 Dose: 240 mg - Labs Labs: 08/15/18 06:55 08/15/18 06:55 PT 17.7 SECONDS (9.4-12.5) H 08/10/18 11:10 INR 1.57 08/10/18 11:10 APTT 37.3 Seconds (26.9-38.3) 08/10/18 11:10 Assessment and Plan - Assessment and Plan (Free Text) Assessment: Pt seen and examined by me. I have reviewed the note of the medical nurse and I agree with it. I have discussed the assessment and plan with the resident. I have reviewed the medications and the last labs.
--- NOTE | 2018-08-15 19:14 | PN ---
DATE: 08/15/2018 SUBJECTIVE: Patient was seen and examined. I did agree with the note of the phlebotomist medical lab assistant. I was involved in the plan of care. The patient has atrial fibrillation that is controlled at this point. She has acute kidney injury that has improved. She has urinary tract infection secondary to Klebsiella and Enterococcus. PLAN: She is being treated with IV antibiotics. She is on meropenem by Infectious Disease. The patient is on Levemir for her diabetes type 2. She is going to continue with Xopenex for her COPD. The patient is on hypothyroidism medications with Synthroid. She is going to be on Eliquis for anticoagulation for her atrial fibrillation. She is on heart-healthy diet. I did review the note of Infectious Disease. Patient is on day #4 of antibiotics. Tod Woodruff MD
[2018-08-15] MEDS: Insulin Detemir 100 units/ml Vial (Levemir) SC SCH (21:37)
[2018-08-16] MEDS: Insulin Reg-MEDIUM-Coverage SC SCH ×4 (04:33→17:15)
[2018-08-16] MEDS: Levothyroxine 75 MCG TAB PO SCH (05:34)
[2018-08-16] MEDS: Meropenem IV 1 gm in NS 1 GM/50 ML BAG IVPB SCH ×2 (05:34→14:18)
--- NOTE | 2018-08-16 06:58 | CP.PCM.PN ---
Subjective - Date & Time of Evaluation Date of Evaluation: 08/16/18 Time of Evaluation: 06:50 - Subjective Subjective: Lying in bed, feels okay, Awake, alert, denies shortness of breath, Reason for consultation and follow up: Cardiac evaluation of atrial fibrillation, History of COPD,hypertension, diabetes, atrial fibrillation on Eliquis, coronary artery disease, post stents,admitted for rapid atrial fibrillation and urinary tract infection. Seen and examined by me and Dr. Modi Objective - Vital Signs/Intake and Output Vital Signs (last 24 hours): Temp Pulse Resp BP Pulse Ox 97.6 F 55 L 18 144/74 99 08/15/18 22:00 08/15/18 22:00 08/15/18 22:00 08/15/18 22:00 08/15/18 22:00 Intake and Output: 08/15/18 08/16/18 18:59 06:59 Intake Total 620 Output Total 1 Balance 619 - Medications Medications: Current Medications Apixaban (Eliquis) 5 mg PO BID [facility]; Protocol Last Admin: 08/15/18 17:00 Dose: 5 mg Atenolol (Tenormin) 25 mg PO BID [facility] Last Admin: 08/15/18 17:00 Dose: 25 mg Meropenem (Merrem Iv 1 Gm Premix) 1 gm in 50 mls @ 100 mls/hr IVPB Q8 [facility]; Prot ocol Stop: 08/21/18 14:02 Last Admin: 08/16/18 05:34 Dose: 100 mls/hr Insulin Detemir (Levemir) 20 unit SC HS [facility] Last Admin: 08/15/18 21:37 Dose: 20 units Insulin Human Lispro (Humalog) 12 units SC AC [facility] Last Admin: 08/15/18 16:59 Dose: 12 unit Insulin Human Regular (Humulin R Med) 0 units SC ACHS [facility]; Protocol Last Admin: 08/16/18 04:33 Dose: Not Given Levalbuterol HCl (Xopenex) 0.63 mg IH [id number] PRN PRN Reason: Shortness of Breath Levothyroxine Sodium (Synthroid) 75 mcg PO 0600 [facility] Last Admin: 08/16/18 05:34 Dose: 75 mcg Verapamil HCl (Verapamil Inj) 2.5 mg IVP Q6H PRN PRN Reason: for heart rate >130 Last Admin: 08/13/18 08:09 Dose: 2.5 mg Verapamil HCl (Calan Sr Tab) 240 mg PO DAILY [facility] Last Admin: 08/15/18 09:03 Dose: 240 mg - Labs Labs: 08/15/18 06:55 08/15/18 06:55 PT 17.7 SECONDS (9.4-12.5) H 08/10/18 11:10 INR 1.57 08/10/18 11:10 APTT 37.3 Seconds (26.9-38.3) 08/10/18 11:10 - Constitutional Appears: Non-toxic, No Acute Distress - Head Exam Head Exam: NORMAL INSPECTION - Eye Exam Eye Exam: Normal appearance Pupil Exam: NORMAL ACCOMODATION - ENT Exam ENT Exam: Mucous Membranes Moist, Normal Exam - Respiratory Exam Respiratory Exam: Clear to Ausculation Bilateral, NORMAL BREATHING PATTERN - Cardiovascular Exam Cardiovascular Exam: +S1, +S2 - GI/Abdominal Exam GI & Abdominal Exam: Soft, Normal Bowel Sounds - Extremities Exam Extremities Exam: Full ROM, Normal Capillary Refill - Neurological Exam Neurological Exam: Alert, Awake, Oriented x3 - Psychiatric Exam Psychiatric exam: Normal Affect, Normal Mood - Skin Skin Exam: Dry, Normal Color, Warm Assessment and Plan - Assessment and Plan (Free Text) Assessment: An 78 year old female with came in to the ER due to generalized weakness and cough and diarrhea. History of COPD,hypertension, diabetes, atrial fibrillation on Eliquis, coronary artery disease, post stents in 1991,1999, and 2009 LAD and circumflex, repeat cardiac cath in 2012, patent stents recently early of 2017. She follows up with and Dr. Andrade group. In ER had rapid atrial fibrillation thus consult was called. Digoxin was given in ER. Troponin normal. Uncontrolled rate atrial fibrillation. Restarted Verapamil. and Digoxin .Expiratory wheezing, started low dose Solumedrol. Changed Albuterol to Xopenex prevent further increase heart rate. Lovenox discontinued and resume Eliquis. Urine culture positive for Klebsiella pneumonia/Enterococcus faecalis. ID on consult. Episode of bradycardia and pauses,Digoxin and Atenolol discontinued, however went in to rapid rate of atrial fibrillation. Off and on rapid rate of atrial fibrillation, restarted Atenolol. Will monitor closely. May probably need PPM eventually.Discontinued telemetry. Discharge planning.Awaiting repeat urine culture result. Plan: No distress, Feels better Denies shortness of breath, Heart rate controlled Blood pressure stable On Eliquis 5 mg BID, Tenormin 25 mg BID, Synthroid 75 mcg daily, Verapamil 240 mg daily Continue current treatment Continue current medications Continue IV antibiotics per ID (UTI) Awaiting repeat urine culture result Glucose control Discharge planning Will follow up Plan and treatment discussed with Dr. Modi
[2018-08-16 07:14] LABS: BASO # 0.01 K/mm3 (0.0-2.0); BASO % 0.1 % (0.0-3.0); EOS % 0.1 % (1.5-5.0); HEMOGLOBIN 14.3 g/dL (12.0-16.0); LYMPH # 2.2 (1.2-3.4); LYMPH % 19.2 % (22.0-35.0); MEAN CELL VOLUME 94.3 fl (80.0-105.0); MEAN CORPUSCULAR HEMOGLOBIN 31.6 pg (25.0-35.0); MEAN CORPUSCULAR HGB CONC 33.5 g/dl (31.0-37.0); MEAN PLATELET VOLUME 11.8 fl (7.0-11.0); MONO # 1.6 (0.1-0.6); MONO % 13.9 % (1.0-6.0); RBC 4.53 10^6/uL (3.5-6.1); RED CELL DISTRIBUTION WIDTH 12.8 % (11.5-14.5); WHITE BLOOD COUNT 11.5 10^3/uL (4.5-11.0)
[2018-08-16 07:22] LABS: ALB/GLOB RATIO 1.2 (1.1-1.8); ALBUMIN 3.4 g/dL (3.0-4.8); ALT/SGPT 61 U/L (7-56); AST/SGOT 42 U/L (14-36); BLOOD UREA NITROGEN 26 mg/dL (7-21); CALCIUM 9.6 mg/dL (8.4-10.5); GFR NON-AFRICAN AMERICAN > 60
[2018-08-16] MEDS: Insulin Lispro 1 UNITS/0.01 ML SC SCH ×3 (08:31→17:15)
[2018-08-16] MEDS: Verapamil 240 mg ER Tab PO SCH (10:00)
--- NOTE | 2018-08-16 13:23 | CP.PCM.DIS ---
Provider - Provider Date of Admission: 08/10/18 13:01 Attending physician: Tod Woodruff MD Primary care physician: Phil Singer MD Consults: 08/10/18 14:31 Nursing Referral for Palliative Care Routine Comment: clau score Physician Instructions: Reason For Exam: assess Social Work Referral Routine Comment: d/c plan Physician Instructions: Reason For Exam: assess 08/10/18 15:14 Case Management Referral Routine Comment: Physician Instructions: Reason For Exam: assess Reason for Referral: Discharge Planning Diabetic Education Referral Routine Comment: blood sugar on admission 297 Physician Instructions: Reason For Exam: assess Inpatient PULMONOLOGY PHYSICIAN Core Measures Referral Routine Comment: rapid a fib/dehydration Physician Instructions: Reason For Exam: asses Transition In Care/Readmission Reduction Routine Comment: rapid a fib dehydration Physician Instructions: Reason For Exam: assess 08/10/18 17:42 Consult [Physician Consult] Routine Comment: Consulting Provider: Gail Modi Consulting Physician: Gail Modi Reason for Consult: Afib Consult [Physician Consult] Routine Comment: rapid a-fib Consulting Provider: Gail Modi Consulting Physician: Gail Modi Reason for Consult: rapid a-fib Additional Comments: cardizem drip at 10mg/hr rate still not controlled 08/12/18 09:41 Consult [Physician Consult] Routine Comment: positive urine culture Consulting Provider: Zachary Lyons Consulting Physician: Zachayr Lyons Reason for Consult: positive urine culture 08/12/18 17:07 TCU [Evaluation for TRCU] Routine Comment: Physician Instructions: Reason For Exam: gait instability Time Spent in preparation of Discharge (in minutes): 45 Hospital Course - Lab Results Lab Results: Micro Results 08/15/18 03:00 Urine,Clean Catch Urine Culture - Final No Growth (<1,000 CFU/ML) 08/12/18 15:25 Blood Blood Culture - Preliminary NO GROWTH AFTER 3 DAYS 08/12/18 15:00 Blood Blood Culture - Preliminary NO GROWTH AFTER 3 DAYS 08/10/18 13:45 Urine Random Urine Culture - Final Klebsiella Pneumoniae Ssp Pneu Enterococcus Faecalis Most Recent Lab Values WBC 11.5 10^3/uL (4.5-11.0) H 08/16/18 06:30 RBC 4.53 10^6/uL (3.5-6.1) 08/16/18 06:30 Hgb 14.3 g/dL (12.0-16.0) 08/16/18 06:30 Hct 42.7 % (36.0-48.0) 08/16/18 06:30 MCV 94.3 fl (80.0-105.0) 08/16/18 06:30 MCH 31.6 pg (25.0-35.0) 08/16/18 06:30 MCHC 33.5 g/dl (31.0-37.0) 08/16/18 06:30 RDW 12.8 % (11.5-14.5) 08/16/18 06:30 Plt Count 236 10^3/uL (120.0-450.0) 08/16/18 06:30 MPV 11.8 fl (7.0-11.0) H 08/16/18 06:30 Neut % (Auto) 66.7 % (50.0-68.0) 08/16/18 06:30 Lymph % (Auto) 19.2 % (22.0-35.0) L 08/16/18 06:30 Logan % (Auto) 13.9 % (1.0-6.0) H 08/16/18 06:30 Eos % (Auto) 0.1 % (1.5-5.0) L 08/16/18 06:30 Baso % (Auto) 0.1 % (0.0-3.0) 08/16/18 06:30 Lymph # (Auto) 2.2 (1.2-3.4) 08/16/18 06:30 Logan # (Auto) 1.6 (0.1-0.6) H 08/16/18 06:30 Eos # (Auto) 0.0 (0.0-0.7) 08/16/18 06:30 Baso # (Auto) 0.01 K/mm3 (0.0-2.0) 08/16/18 06:30 Absolute Neuts (auto) 7.66 (1.4-6.5) H 08/16/18 06:30 PT 17.7 SECONDS (9.4-12.5) H 08/10/18 11:10 INR 1.57 08/10/18 11:10 APTT 37.3 Seconds (26.9-38.3) 08/10/18 11:10 pO2 29 mm/Hg (30-55) L 08/10/18 14:44 VBG pH 7.31 (7.32-7.43) L 08/10/18 14:44 VBG pCO2 48.0 (40-60) 08/10/18 14:44 VBG HCO3 24.2 mmol/l (21-28) 08/10/18 14:44 VBG Total CO2 25.7 mmol.L (22-28) 08/10/18 14:44 VBG O2 Sat (Calc) 53.3 % (40-65) 08/10/18 14:44 VBG Base Excess -2.5 mmol/L (0.0-2.0) L 08/10/18 14:44 VBG Potassium 3.8 mmol/L (3.6-5.2) 08/10/18 14:44 Sodium 137.0 mmol/L (132-148) 08/10/18 14:44 Chloride 104.0 mmol/L (98-107) 08/10/18 14:44 Glucose 112 mg/dl (65-105) H 08/10/18 14:44 Lactate 1.9 mmol/L (0.7-2.1) 08/10/18 14:44 FiO2 21.0 % 08/10/18 14:44 Crit Value Called To elayne Saeed md 08/10/18 11:10 Crit Value Called By Isa [employer] 08/10/18 11:10 Blood Gas Notified Time 1139 08/10/18 11:10 Sodium 135 mmol/L (132-148) 08/16/18 06:30 Potassium 4.8 mmol/L (3.6-5.0) 08/16/18 06:30 Chloride 99 mmol/L (98-107) 08/16/18 06:30 Carbon Dioxide 30 mmol/L (21-33) 08/16/18 06:30 Anion Gap 11 (10-20) 08/16/18 06:30 BUN 26 mg/dL (7-21) H 08/16/18 06:30 Creatinine 0.6 mg/dl (0.7-1.2) L 08/16/18 06:30 Est GFR ( Amer) > 60 08/16/18 06:30 Est GFR (Non-Af Amer) > 60 08/16/18 06:30 POC Glucose (mg/dL) 252 mg/dL (65-110) H 08/16/18 11:09 Random Glucose 205 mg/dL (70-110) H 08/16/18 06:30 Hemoglobin A1c 9.3 % (4.2-6.5) H 08/12/18 15:00 Calcium 9.6 mg/dL (8.4-10.5) 08/16/18 06:30 Phosphorus 2.8 mg/dL (2.5-4.5) 08/11/18 06:55 Magnesium 1.7 mg/dL (1.7-2.2) 08/11/18 06:55 Total Bilirubin 0.6 mg/dL (0.2-1.3) 08/16/18 06:30 AST 42 U/L (14-36) H 08/16/18 06:30 ALT 61 U/L (7-56) H 08/16/18 06:30 Alkaline Phosphatase 51 U/L (38-126) 08/16/18 06:30 Lactate Dehydrogenase 462 U/L (333-699) 08/11/18 06:55 Total Creatine Kinase 89 U/L (35-230) 08/11/18 06:55 Troponin I < 0.01 ng/mL 08/11/18 06:55 NT-Pro-B Natriuret Pep 812 pg/mL (0-450) H 08/10/18 11:10 Total Protein 6.2 g/dL (5.8-8.3) 08/16/18 06:30 Albumin 3.4 g/dL (3.0-4.8) 08/16/18 06:30 Globulin 2.8 gm/dL 08/16/18 06:30 Albumin/Globulin Ratio 1.2 (1.1-1.8) 08/16/18 06:30 Triglycerides 219 mg/dL (35-160) H 08/11/18 06:55 Cholesterol 93 mg/dL (130-200) L 08/11/18 06:55 LDL Cholesterol Direct 51 mg/dL (0-129) 08/11/18 06:55 HDL Cholesterol 19 mg/dL (29-60) L 08/11/18 06:55 Lipase 99 U/L (23-300) 08/10/18 11:10 Procalcitonin < 0.05 NG/ML (0.19-0.49) L 08/11/18 07:00 TSH 3rd Generation 1.54 mIU/mL (0.46-4.68) 08/11/18 06:55 Venous Blood Potassium 3.8 mmol/L (3.6-5.2) 08/10/18 14:44 Urine Color Yellow (YELLOW) 08/12/18 15:00 Urine Appearance Clear (CLEAR) 08/12/18 15:00 Urine pH 6.0 (4.7-8.0) 08/12/18 15:00 Ur Specific Burke 1.020 (1.005-1.035) 08/12/18 15:00 Urine Protein Trace mg/dL (<30 mg/dL) H 08/12/18 15:00 Urine Glucose (UA) 250 mg/dL (NEGATIVE) H 08/12/18 15:00 Urine Ketones Negative mg/dL (NEGATIVE) 08/12/18 15:00 Urine Blood Negative (NEGATIVE) 08/12/18 15:00 Urine Nitrate Negative (NEGATIVE) 08/12/18 15:00 Urine Bilirubin Negative (NEGATIVE) 08/12/18 15:00 Urine Urobilinogen 0.2 E.U./dL (<1 E.U./dL) 08/12/18 15:00 Ur Leukocyte Esterase Small Rk/uL (NEGATIVE) H 08/12/18 15:00 Urine RBC TEST NOT PERFORMED 08/12/18 15:00 Urine WBC 5 - 10 /hpf (0-6) H 08/12/18 15:00 Ur Epithelial Cells 10 - 12 /hpf (0-5) H 08/12/18 15:00 Amorphous Sediment Trace /hpf (NONE) 08/12/18 15:00 Urine Bacteria Small /hpf (NONE) 08/12/18 15:00 Influenza Typ A,B (EIA) Negative for flu a/b (NEGATIVE) 08/10/18 11:10 - Hospital Course Hospital Course: 78-year-old female with past medical history of COPD, diabetes, atrial fibrillation on Eliquis, stress incontinence presents with generalized weakness and cough. In the emergency room basic lab work was performed. Chest x-ray shows no active disease. EKG showed A. fib with RVR heart rate of 160. Cardiology was consulted for further recommendations. Patient was sent to telemetry floor for monitoring and observation. At this time patient was started on atenolol and verapamil (both scheduled and as needed) for rate contro l. Echo was performed and showed a normal left ventricular function ejection fraction of 55%. Patient restarted on her Eliquis. Urine cultures were performed and showed Klebsiella pneumonia and enterococcus faecalis. At this time infectious disease doctors were consulted for the recommendations. Patient was started on meropenem and repeat cultures were performed. Telemetry was discontinued at this time. Patient's atrial fibrillation with RVR had resolved. Patient received 5 days of meropenem and the following urine cultures were negative. Today the patient states that ehe is feeling much better. Denies any complaints today. Patient states that she has all her medications at home. As per cardiology I told her that that she will now take atenolol and verapamil for her atrial fibrillation as an outpt. Patient is to follow-up with her PMD and cardiology. All questions were answered. 1. Atrial fibrillation with RVR, resolved 2. Acute kidney injury - resolved 3. UTI 2/2 Klebsiella pneumonia, and enterococcus feacalis 4. Diabetes mellitus type 2, insulin dependent 5. Hypomagnesemia, resolved 6. COPD 7. Stress incontinence 8. Erythrocytosis - resolved 9. Hypothyroid 10. URI, resolved Discharge Exam - Head Exam Head Exam: NORMAL INSPECTION - Eye Exam Eye Exam: EOMI, Normal appearance, PERRL - Respiratory Exam Respiratory Exam: Clear to PA & Lateral. absent: Rales, Rhonchi, Wheezes - Cardiovascular Exam Cardiovascular Exam: REGULAR RHYTHM, +S1, +S2 - GI/Abdominal Exam GI & Abdominal Exam: Normal Bowel Sounds, Soft. absent: Tenderness - Neurological Exam Neurological exam: Alert, CN II-XII Intact, Oriented x3 - Psychiatric Exam Psychiatric exam: Normal Mood - Skin Skin Exam: Dry, Warm Discharge Plan - Discharge Medications Prescriptions: Atenolol [Tenormin] 25 mg PO BID #60 tab Verapamil [Calan SR Tab] 240 mg PO DAILY #30 tab - Follow Up Plan Condition: IMPROVED Disposition: HOME/ ROUTINE Patient education suggested?: Yes Additional Instructions: Follow-up with your PMD within 3 days Follow-up with your cardiology within 1 week If your symptoms recur come back to the ED Discontinue lisinopril and clonidine at home Verapamil dose has been increased to 240 mg daily Continue with atenolol as prescribed Both of these scripts were sent to [facility] pharmacy Referrals: Phil Singer MD [Primary Care Provider] - Gail Modi MD [Staff Provider] -
[2018-08-16 14:06] VITALS: BP 131/86; PULSE 69; RESP 20; TEMP 97.8; O2SAT 98
--- NOTE | 2018-08-16 15:00 | CP.PCM.PN ---
Subjective - Date & Time of Evaluation Date of Evaluation: 08/16/18 Time of Evaluation: 11:35 - Subjective Subjective: Afebrile, comfortable, not in distress. Objective - Vital Signs/Intake and Output Vital Signs (last 24 hours): Temp Pulse Resp BP Pulse Ox 97.9 F 75 18 117/78 98 08/15/18 11:45 08/15/18 11:45 08/15/18 11:45 08/15/18 11:45 08/15/18 06:00 Intake and Output: 08/15/18 08/15/18 06:59 18:59 Intake Total 360 Output Total 250 Balance 110 - Medications Medications: Current Medications Apixaban (Eliquis) 5 mg PO BID [facility]; Protocol Last Admin: 08/15/18 09:07 Dose: 5 mg Atenolol (Tenormin) 25 mg PO BID [facility] Last Admin: 08/15/18 09:04 Dose: 25 mg Meropenem (Merrem Iv 1 Gm Premix) 1 gm in 50 mls @ 100 mls/hr IVPB Q8 [facility]; Protocol Stop: 08/21/18 14:02 Last Admin: 08/15/18 05:39 Dose: 100 mls/hr Insulin Detemir (Levemir) 20 unit SC HS [facility] Last Admin: 08/14/18 21:19 Dose: 20 units Insulin Human Lispro (Humalog) 12 units SC AC [facility] Last Admin: 08/15/18 13:01 Dose: 12 unit Insulin Human Regular (Humulin R Med) 0 units SC ACHS [facility]; Protocol Last Admin: 08/15/18 13:01 Dose: 10 unit Levalbuterol HCl (Xopenex) 0.63 mg IH [id number] PRN PRN Reason: Shortness of Breath Levothyroxine Sodium (Synthroid) 75 mcg PO 0600 [facility] Last Admin: 08/15/18 05:39 Dose: 75 mcg Verapamil HCl (Verapamil Inj) 2.5 mg IVP Q6H PRN PRN Reason: for heart rate >130 Last Admin: 08/13/18 08:09 Dose: 2.5 mg Verapamil HCl (Calan Sr Tab) 240 mg PO DAILY [facility] Last Admin: 08/15/18 09:03 Dose: 240 mg - Labs Labs: 08/15/18 06:55 08/15/18 06:55 PT 17.7 SECONDS (9.4-12.5) H 08/10/18 11:10 INR 1.57 08/10/18 11:10 APTT 37.3 Seconds (26.9-38.3) 08/10/18 11:10 - Constitutional Appears: Chronically Ill - Head Exam Head Exam: NORMAL INSPECTION - ENT Exam ENT Exam: Mucous Membranes Moist - Respiratory Exam Respiratory Exam: Decreased Breath Sounds - Cardiovascular Exam Cardiovascular Exam: +S1, +S2 - GI/Abdominal Exam GI & Abdominal Exam: Soft. absent: Tenderness Assessment and Plan - Assessment and Plan (Free Text) Plan: Assessment Klebsiella and E. faecalis UTI history of severe sepsis with hypoxic respiratory failure due to left sided pyelonephritis with Klebsiella bacteremia on top of atrial fibrillation with rapid ventricular response atrial fibrillation on anticoagulation COPD obesity with BMI 31 Plan on Merrem day 5 - repeat urine cx are negative and we can d/c antibiotics
== END 2018-08-16 17:47 | disposition home health service (06) | DRG 309 ==
LOC: ED 10:31 → ERH 13:01 → 2RSO 16:57 → 5RNO 08-15 16:01
PROVIDERS: ADMIT Internal Medicine Nephrology; ATTEND Internal Medicine Nephrology
DX: I48.2 Chronic atrial fibrillation (principal); J44.0 Chronic obstructive pulmonary disease with (acute) lower respiratory infection; N39.0 Urinary tract infection, site not specified; N17.9 Acute kidney failure, unspecified; J44.1 Chronic obstructive pulmonary disease with (acute) exacerbation; Z79.899 Other long term (current) drug therapy; E86.0 Dehydration; E11.9 Type 2 diabetes mellitus without complications; Z79.4 Long term (current) use of insulin; R19.7 Diarrhea, unspecified; N39.3 Stress incontinence (female) (male); B95.2 Enterococcus as the cause of diseases classified elsewhere; J20.9 Acute bronchitis, unspecified; R00.1 Bradycardia, unspecified; B96.1 Klebsiella pneumoniae [K. pneumoniae] as the cause of diseases classified elsewhere; E83.42 Hypomagnesemia; D75.1 Secondary polycythemia; E03.9 Hypothyroidism, unspecified; E11.65 Type 2 diabetes mellitus with hyperglycemia; E66.9 Obesity, unspecified; F03.90 Unspecified dementia, unspecified severity, without behavioral disturbance, psychotic disturbance, mood disturbance, and anxiety; I10 Essential (primary) hypertension; Z88.7 Allergy status to serum and vaccine; Z88.1 Allergy status to other antibiotic agents; Z88.0 Allergy status to penicillin; Z91.013 Allergy to seafood; Z68.31 Body mass index [BMI] 31.0-31.9, adult; Z90.710 Acquired absence of both cervix and uterus; I25.10 Atherosclerotic heart disease of native coronary artery without angina pectoris; I27.20 Pulmonary hypertension, unspecified; T38.0X5A Adverse effect of glucocorticoids and synthetic analogues, initial encounter; Z79.01 Long term (current) use of anticoagulants; Z82.49 Family history of ischemic heart disease and other diseases of the circulatory system; Z83.3 Family history of diabetes mellitus; Z86.19 Personal history of other infectious and parasitic diseases; Z86.73 Personal history of transient ischemic attack (TIA), and cerebral infarction without residual deficits; Z95.5 Presence of coronary angioplasty implant and graft

== ENCOUNTER 2018-08-24 11:18 | Inpatient (IN) | payer MEDICARE ==
[2018-08-24 11:24] VITALS: BMI 30.9
[2018-08-24 11:56] LABS: BASO # 0.01 K/mm3 (0.0-2.0); BASO % 0.1 % (0.0-3.0); EOS # 0.1 (0.0-0.7); EOS % 0.8 % (1.5-5.0); HEMOGLOBIN 13.8 g/dL (12.0-16.0); LYMPH # 1.8 (1.2-3.4); LYMPH % 13.7 % (22.0-35.0); MEAN CELL VOLUME 96.1 fl (80.0-105.0); MEAN CORPUSCULAR HEMOGLOBIN 31.8 pg (25.0-35.0); MEAN CORPUSCULAR HGB CONC 33.1 g/dl (31.0-37.0); MEAN PLATELET VOLUME 11.5 fl (7.0-11.0); MONO # 1.3 (0.1-0.6); MONO % 9.6 % (1.0-6.0); RBC 4.34 10^6/uL (3.5-6.1); RED CELL DISTRIBUTION WIDTH 13.4 % (11.5-14.5); WHITE BLOOD COUNT 13.3 10^3/uL (4.5-11.0)
[2018-08-24 12:11] LABS: INR 1.65; PARTIAL THROMBOPLASTIN TIME 37.9 Seconds (26.9-38.3); PROTHROMBIN TIME 18.7 SECONDS (9.4-12.5)
[2018-08-24 12:15] LABS: B-TYPE NATRIURETIC PEPTIDE 1660 pg/mL (0-450); TROPONIN I < 0.01 ng/mL
--- NOTE | 2018-08-24 12:21 | RAD ---
Date of service: 08/24/2018 HISTORY: shortness of breath COMPARISON: 08/10/2018 FINDINGS: LUNGS: No active pulmonary disease. PLEURA: No significant pleural effusion identified, no pneumothorax apparent. CARDIOVASCULAR: Aortic calcification Normal cardiac size. No pulmonary vascular congestion. OSSEOUS STRUCTURES: No significant abnormalities. VISUALIZED UPPER ABDOMEN: Normal. OTHER FINDINGS: None. IMPRESSION: No active disease.
--- NOTE | 2018-08-24 12:23 | ED PDOC ---
Arrival/HPI - General Chief Complaint: Palpitations Historian: Patient - History of Present Illness Narrative History of Present Illness (Text): 08/24/18 12:15 78 year old F with a PMH of diabetes, COPD, A-fib on Eliquis presents to the Emergency department complaining of Chest palpations x1day. Patient recalls that she felt generalized weakness in hands yesterday while she was trying to make oatmeal which resulted in her dropping her food. The recently presented to the emergency department x8days ago complaining of generalized weakness and cough. In the emergency room 8 days ago: basic lab work was performed and a chest x-ray shows no active disease, EKG showed A. fib with RVR heart rate of 160, patient's atrial fibrillation with RVR had resolved, patient received 5 days of meropenem and the following urine cultures were negative. Patient was then discharged home. Today: patient denies any fevers, chills, headache, dizziness, abdominal pain, nausea, vomiting, diarrhea, back pain, neck pain, or any other complaint. 08/24/18 12:27 Time/Duration: < week Symptom Onset: Gradual Symptom Course: Unchanged Activities at Onset: Light Context: Home Past Medical History - Provider Review Nursing Documentation Reviewed: Yes - Infectious Disease Hx of Infectious Diseases: None - Tetanus Immunization Tetanus Immunization: Unknown - Reproductive Menopause: Yes - Cardiac Hx Cardiac Disorders: Yes (Afib on Eliquis, CAD) - Pulmonary Hx Chronic Obstructive Pulmonary Disease (COPD): Yes - Neurological HX Cerebrovascular Accident: Yes (TIA) - HEENT Hx HEENT Disorder: No - Renal Hx Renal Disorder: No - Endocrine/Metabolic Hx Diabetes Mellitus Type 2: Yes - Hematological/Oncological Hx Cancer: Yes - Integumentary Hx Dermatological Disorder: No Hx Basal Cell Carcinoma: No Hx Eczema: No Hx Melanoma: No Hx Psoriasis: No Hx Squamous Cell Carcinoma: No - Musculoskeletal/Rheumatological Hx Musculoskeletal Disorders: Yes Hx Osteoarthritis: Yes - Gastrointestinal Hx Gastrointestinal Disorders: No - Genitourinary/Gynecological Hx Genitourinary Disorders: No - Psychiatric Hx Psychophysiologic Disorder: No Hx Substance Use: No - Surgical History Hx Hysterectomy: Yes Other/Comment: lumpectomy R breast - Anesthesia Hx Anesthesia: Yes Hx Anesthesia Reactions: No Hx Malignant Hyperthermia: No - Suicidal Assessment Feels Threatened In Home Enviroment: No Family/Social History - Physician Review Nursing Documentation Reviewed: Yes Family/Social History: No Known Family HX Smoking Status: Never Smoked Hx Alcohol Use: No Hx Substance Use: No Allergies/Home Meds Allergies/Adverse Reactions: Allergies Penicillins Allergy (Verified 08/09/17 13:24) RASH shrimp Allergy (Verified 08/09/17 13:24) RASH clarithromycin Adverse Reaction (Verified 08/09/17 13:24) RASH flu vaccine Adverse Reaction (Uncoded 08/14/17 13:05) FEVER Home Medications: Home Meds Medication Instructions Recorded Confirmed Galantamine [remINYL] 12 mg PO BID 08/10/18 08/10/18 Levalbuterol [Xopenex] 0.075 mg IH TID 08/10/18 08/10/18 Levothyroxine [Synthroid] 0.075 mg PO DAILY 08/10/18 08/10/18 Review of Systems - Physician Review All systems were reviewed & negative as marked: Yes - Review of Systems Constitutional: absent: Fevers Respiratory: absent: Wheezing Cardiovascular: absent: Chest Pain Gastrointestinal: absent: Abdominal Pain, Diarrhea, Nausea, Vomiting Musculoskeletal: Arthralgias (generalized to her hands). absent: Back Pain Psychiatric: Normal Physical Exam Vital Signs Reviewed: Yes Vital Signs Temp Pulse Resp BP Pulse Ox 08/24/18 11:57 114 H 19 106/71 94 L 08/24/18 11:55 133 H 131/80 08/24/18 11:29 98.0 F 136 H 18 131/80 98 Temperature: Afebrile Blood Pressure: Normal Pulse: Irregular Respiratory Rate: Normal Appearance: Positive for: Well-Appearing, Comfortable Pain Distress: None Mental Status: Positive for: Alert and Oriented X 3 - Systems Exam Head: Present: Atraumatic, Normocephalic Extroacular Muscles: Present: EOMI Mouth: Present: Moist Mucous Membranes Neck: Present: Normal Range of Motion Respiratory/Chest: Present: Clear to Auscultation, Good Air Exchange Cardiovascular: Present: Irregular Rhythm (irregular Rate, consistent with Afib) Abdomen: Present: Normal Bowel Sounds. No: Tenderness, Distention Neurological: Present: GCS=15, Speech Normal Skin: Present: Warm, Dry, Normal Color. No: Rashes Psychiatric: Present: Alert, Oriented x 3, Normal Insight, Normal Concentration Medical Decision Making ED Course and Treatment: 08/24/18 12:38 Impression: 78 year old F presents to the Emergency department complaining of Chest palpations x1day. Differential Diagnosis included but are not limited to: Plan: --EKG --Labs --Chest X-ray --Cardizem --UA -- Reassess and disposition Prior Visits: Notes and results from previous visits were reviewed. Progress Notes: - Lab Interpretations Lab Results: PT 18.7 SECONDS (9.4-12.5) H 08/24/18 11:45 INR 1.65 08/24/18 11:45 APTT 37.9 Seconds (26.9-38.3) 08/24/18 11:45 - RAD Interpretation Radiology Orders: 08/24/18 11:39 CHEST PORTABLE [RAD] Stat - Medication Orders Current Medication Orders: Discontinued Medications Diltiazem HCl (Cardizem) 20 mg IVP STAT STA Stop: 08/24/18 11:41 Last Admin: 08/24/18 11:55 Dose: 20 mg IVP Administration Document 08/24/18 11:55 CD (Rec: 08/24/18 11:56 CD [email or web address]) Charges for Administration # of IVP Administrations 1 MAR Pulse and Blood Pressure Document 08/24/18 11:55 CD (Rec: 08/24/18 11:56 CD [email or web address]) Pulse Pulse Rate (60-90) 133 Blood Pressure Blood Pressure (100/60-150/90) 131/80 - PA / [employer] / Resident Statement MD/DO has reviewed & agrees with the documentation as recorded. - Scribe Statement The provider has reviewed the documentation as recorded by the Elvin Woodard All medical record entries made by the Angieibesthela were at my direction and personally dictated by me. I have reviewed the chart and agree that the record accurately reflects my personal performance of the history, physical exam, medical decision making, and the department course for this patient. I have also personally directed, reviewed, and agree with the discharge instructions and disposition. Disposition/Present on Arrival - Present on Arrival History of DVT/PE: No History of Uncontrolled Diabetes: No Urinary Catheter: No History of Decub. Ulcer: No History Surgical Site Infection Following: None - Disposition Referrals: Phil Singer MD [Staff Provider] - Follow up with primary Forms: [employer] (T[place])
[2018-08-24 12:25] LABS: ALB/GLOB RATIO 1.3 (1.1-1.8); ALBUMIN 3.7 g/dL (3.0-4.8); ALT/SGPT 34 U/L (7-56); AST/SGOT 22 U/L (14-36); BLOOD UREA NITROGEN 18 mg/dL (7-21); CALCIUM 9.1 mg/dL (8.4-10.5); GFR NON-AFRICAN AMERICAN > 60
[2018-08-24] MEDS ORDERED: Insulin Regular 1 UNITS/0.01 ML ML SC STA (12:34)
[2018-08-24] MEDS ORDERED: diltiaZEM IVPB 100mg in NS 100 ML IV STA ×2 (12:35→17:40)
--- NOTE | 2018-08-24 14:08 | CP.PCM.HP ---
<eHctor Chavarria - Last Filed: 08/24/18 14:24> History of Present Illness - History of Present Illness History of Present Illness: H&P for Dr Woodruff: 78 year old F with a PMH of diabetes, COPD, A-fib on Eliquis, stress incontinence presents to the Emergency department complaining of generalized weakness and chest palpitations. Patient states that her symptoms started a few days ago and has gotten progressively worse. She states that she had a physical therapy come to her house this morning and saw that she did not look well, hence she came to the emergency room. Patient complains about being very weak. She also complains about some intermittent palpitations however denies any chest pain. Patient also complains about some dyspnea with exertion. Of note patient was just recently admitted the hospital on 08-10-18 for atrial fibrillation with RVR and UTI. No other complaints at this time. 12 point ROS performed and negative other than as stated above PMH: As above PSH: Lumpectomy, hysterectomy and oophorectomy, appendectomy, tonsillectomy Medications: Refer to [facility] Allergies: Penicillin, shrimp, clarithromycin, flu vaccine SH: Denies any history of smoking, drugs, or drinking. Patient does admit to secondhand smoke father, brother, and the were all smokers. FH: Father with coronary artery disease and diabetes, mother passed from old age Present on Admission - Present on Admission Any Indicators Present on Admission: No Review of Systems - Review of Systems All systems: reviewed and no additional remarkable complaints except Past Patient History - Infectious Disease Hx of Infectious Diseases: None - Tetanus Immunizations Tetanus Immunization: Unknown - Past Social History Smoking Status: Never Smoked - CARDIAC Hx Cardiac Disorders: Yes (Afib on Eliquis, CAD) - PULMONARY Hx Chronic Obstructive Pulmonary Disease (COPD): Yes - NEUROLOGICAL HX Cerebrovascular Accident: Yes (TIA) - HEENT Hx HEENT Problems: No - RENAL Hx Chronic Kidney Disease: No - ENDOCRINE/METABOLIC Hx Diabetes Mellitus Type 2: Yes - HEMATOLOGICAL/ONCOLOGICAL Hx Cancer: Yes - INTEGUMENTARY Hx Dermatological Problems: No Hx Basil Cell: No Hx Eczema: No Hx Melanoma: No Hx Psoriasis: No Hx Squamous Cell: No - MUSCULOSKELETAL/RHEUMATOLOGICAL Hx Musculoskeletal Disorders: Yes Hx Osteoarthritis: Yes - GASTROINTESTINAL Hx Gastrointestinal Disorders: No - GENITOURINARY/GYNECOLOGICAL Hx Genitourinary Disorders: No - PSYCHIATRIC Hx Psychophysiologic Disorder: No Hx Substance Use: No - SURGICAL HISTORY Hx Hysterectomy: Yes Other/Comment: lumpectomy R breast - ANESTHESIA Hx Anesthesia: Yes Hx Anesthesia Reactions: No Hx Malignant Hyperthermia: No Meds Allergies/Adverse Reactions: Allergies Allergy/AdvReac Type Severity Reaction Status Date / Time Penicillins Allergy RASH Verified 08/09/17 13:24 shrimp Allergy RASH Verified 08/09/17 13:24 clarithromycin AdvReac RASH Verified 08/09/17 13:24 flu vaccine AdvReac FEVER Uncoded 08/14/17 13:05 Physical Exam - Constitutional Appears: No Acute Distress - Head Exam Head Exam: ATRAUMATIC, NORMOCEPHALIC - Eye Exam Eye Exam: EOMI, PERRL - ENT Exam ENT Exam: Mucous Membranes Moist - Respiratory Exam Respiratory Exam: Clear to Auscultation Bilateral. absent: Rales, Rhonchi, Wheezes - Cardiovascular Exam Cardiovascular Exam: Tachycardia, +S1, +S2 - GI/Abdominal Exam GI & Abdominal Exam: Normal Bowel Sounds, Soft. absent: Tenderness - Extremities Exam Extremities exam: Negative for: calf tenderness, pedal edema - Neurological Exam Neurological exam: Alert, CN II-XII Intact, Oriented x3 - Psychiatric Exam Psychiatric exam: Normal Mood - Skin Skin Exam: Dry, Intact, Warm Results - Vital Signs Recent Vital Signs: Last Vital Signs Temp 98.0 F 08/24/18 11:29 Pulse 116 H 08/24/18 13:14 Resp 19 08/24/18 13:14 BP 143/83 08/24/18 13:14 Pulse Ox 97 08/24/18 13:14 - Labs Result Diagrams: 08/24/18 11:45 08/24/18 11:45 Labs: Laboratory Results - last 24 hr 08/24/18 08/24/18 08/24/18 11:45 11:45 11:45 WBC 13.3 H RBC 4.34 Hgb 13.8 Hct 41.7 MCV 96.1 MCH 31.8 MCHC 33.1 RDW 13.4 Plt Count 300 MPV 11.5 H Neut % (Auto) 75.8 H Lymph % (Auto) 13.7 L Thurston % (Auto) 9.6 H Eos % (Auto) 0.8 L Baso % (Auto) 0.1 Lymph # (Auto) 1.8 Thurston # (Auto) 1.3 H Eos # (Auto) 0.1 Baso # (Auto) 0.01 Absolute Neuts (auto) 10.09 H PT 18.7 H INR 1.65 APTT 37.9 Sodium 133 Potassium 4.8 Chloride 101 Carbon Dioxide 25 Anion Gap 12 BUN 18 Creatinine 0.7 Est GFR ( Amer) > 60 Est GFR (Non-Af Amer) > 60 Random Glucose 314 H* D Calcium 9.1 Magnesium 1.5 L Total Bilirubin 1.0 AST 22 ALT 34 Alkaline Phosphatase 73 Troponin I < 0.01 NT-Pro-B Natriuret Pep 1660 H Total Protein 6.5 Albumin 3.7 Globulin 2.8 Albumin/Globulin Ratio 1.3 Assessment & Plan - Assessment and Plan (Free Text) Assessment: 1. Atrial fibrillation with RVR 2. Diabetes mellitus type 2, insulin dependent 3. Hypomagnesemia 4. COPD 5. Stress incontinence 6. Hypothyroid 7. Leukocytosis In the emergency room chest x-ray was performed and showed no active disease. EKG was performed and showed heart rate of 146 atrial fibrillation with RVR. Troponin x 1 neg. Patient was given 20 mg of IV push Cardizem followed by Cardizem drip. Cardiology is consulted awaiting recommendations. For her atrial fibrillation will also resume the patient's Eliquis. For her diabetes we will resume her home dose of insulin. For her hypothyroidism we will resume her levothyroxine. For her COPD will use Xopenex as needed. For her leukocytosis, there is no sign of infection, we will cont to monitor. Heart healthy diet. Physical therapy. Continue to monitor for any changes Case and plan was reviewed and discussed with Dr. Woodruff. <Tod Woodruff S - Last Filed: 08/25/18 09:26> Results - Vital Signs Recent Vital Signs: Last Vital Signs Temp 98.2 F 08/25/18 05:56 Pulse 136 H 08/25/18 09:07 Resp 18 08/25/18 05:56 BP 129/75 08/25/18 09:08 Pulse Ox 97 08/24/18 14:40 - Labs Result Diagrams: 08/25/18 07:00 08/25/18 07:00 Labs: Laboratory Results - last 24 hr 08/24/18 08/24/18 08/24/18 11:45 11:45 11:45 WBC 13.3 H RBC 4.34 Hgb 13.8 Hct 41.7 MCV 96.1 MCH 31.8 MCHC 33.1 RDW 13.4 Plt Count 300 MPV 11.5 H Neut % (Auto) 75.8 H Lymph % (Auto) 13.7 L Thurston % (Auto) 9.6 H Eos % (Auto) 0.8 L Baso % (Auto) 0.1 Lymph # (Auto) 1.8 Thurston # (Auto) 1.3 H Eos # (Auto) 0.1 Baso # (Auto) 0.01 Absolute Neuts (auto) 10.09 H PT 18.7 H INR 1.65 APTT 37.9 Sodium 133 Potassium 4.8 Chloride 101 Carbon Dioxide 25 Anion Gap 12 BUN 18 Creatinine 0.7 Est GFR ( Amer) > 60 Est GFR (Non-Af Amer) > 60 Random Glucose 314 H* D Calcium 9.1 Phosphorus Magnesium 1.5 L Total Bilirubin 1.0 AST 22 ALT 34 Alkaline Phosphatase 73 Troponin I < 0.01 NT-Pro-B Natriuret Pep 1660 H Total Protein 6.5 Albumin 3.7 Globulin 2.8 Albumin/Globulin Ratio 1.3 TSH 3rd Generation Urine Color Urine Appearance Urine pH Ur Specific Bowlegs Urine Protein Urine Glucose (UA) Urine Ketones Urine Blood Urine Nitrate Urine Bilirubin Urine Urobilinogen Ur Leukocyte Esterase 08/24/18 08/25/18 08/25/18 16:00 07:00 07:00 WBC 12.1 H RBC 4.55 Hgb 14.4 Hct 43.3 MCV 95.2 MCH 31.6 MCHC 33.3 RDW 13.4 Plt Count 240 MPV 11.8 H Neut % (Auto) 71.6 H Lymph % (Auto) 15.3 L Thurston % (Auto) 11.9 H Eos % (Auto) 1.1 L Baso % (Auto) 0.1 Lymph # (Auto) 1.9 Thurston # (Auto) 1.4 H Eos # (Auto) 0.1 Baso # (Auto) 0.01 Absolute Neuts (auto) 8.69 H PT INR APTT Sodium 138 Potassium 4.2 Chloride 102 Carbon Dioxide 29 Anion Gap 11 BUN 14 Creatinine 0.7 Est GFR ( Amer) > 60 Est GFR (Non-Af Amer) > 60 Random Glucose 177 H Calcium 8.9 Phosphorus 3.7 Magnesium 2.0 Total Bilirubin 0.9 AST 23 ALT 35 Alkaline Phosphatase 71 Troponin I NT-Pro-B Natriuret Pep Total Protein 6.3 Albumin 3.5 Globulin 2.8 Albumin/Globulin Ratio 1.2 TSH 3rd Generation Urine Color Yellow Urine Appearance Clear Urine pH 6.0 Ur Specific Bowlegs 1.025 Urine Protein Negative Urine Glucose (UA) >=1000 Urine Ketones Negative Urine Blood Negative Urine Nitrate Negative Urine Bilirubin Negative Urine Urobilinogen 0.2 Ur Leukocyte Esterase Negative 08/25/18 07:00 WBC RBC Hgb Hct MCV MCH MCHC RDW Plt Count MPV Neut % (Auto) Lymph % (Auto) Thurston % (Auto) Eos % (Auto) Baso % (Auto) Lymph # (Auto) Thurston # (Auto) Eos # (Auto) Baso # (Auto) Absolute Neuts (auto) PT INR APTT Sodium Potassium Chloride Carbon Dioxide Anion Gap BUN Creatinine Est GFR ( Amer) Est GFR (Non-Af Amer) Random Glucose Calcium Phosphorus Magnesium Total Bilirubin AST ALT Alkaline Phosphatase Troponin I NT-Pro-B Natriuret Pep Total Protein Albumin Globulin Albumin/Globulin Ratio TSH 3rd Generation 1.01 Urine Color Urine Appearance Urine pH Ur Specific Bowlegs Urine Protein Urine Glucose (UA) Urine Ketones Urine Blood Urine Nitrate Urine Bilirubin Urine Urobilinogen Ur Leukocyte Esterase Assessment & Plan - Assessment and Plan (Free Text) Assessment: Pt seen and examined by me. I have reviewed the note of the caregivers non medical and I agree with it. I have discussed the assessment and plan with the resident. I have reviewed the medications and the last labs.
[2018-08-24] MEDS ORDERED: Magnesium Sulfate 2 gm/50 ml 2 GM/50 ML BAG IVPB ONE (14:23)
[2018-08-24 16:03] LABS: URINE APPEARANCE CLEAR (CLEAR); URINE BILIRUBIN NEGATIVE (NEGATIVE); URINE BLOOD NEGATIVE (NEGATIVE); URINE COLOR YELLOW (YELLOW); URINE GLUCOSE (UA) >=1000 mg/dL (NEGATIVE); URINE LEUKOCYTE ESTERASE NEGATIVE Leu/uL (NEGATIVE); URINE PROTEIN NEGATIVE mg/dL (<30 mg/dL); URINE UROBILINOGEN 0.2 E.U./dL (<1 E.U./dL)
[2018-08-24] MEDS ORDERED: Influenza Vaccine 60 mcg/0.5 mL SYR (4YR UP) IM ONE (16:03)
[2018-08-24] MEDS ORDERED: Pneumococcal 23-Valent Vaccine IM ONE (16:03)
[2018-08-24] MEDS ORDERED: Digoxin 500 mcg/2ml (0.5 mg/2ml) Inj IVP ONE ×2 (16:20→20:00)
[2018-08-24] MEDS: Insulin Lispro (humaLOG) LOW Coverage SC SCH ×2 (16:56→22:03)
[2018-08-24] MEDS: Insulin Lispro 1 UNITS/0.01 ML SC SCH (16:56)
--- NOTE | 2018-08-24 18:57 | CARD ---
APPROVED REPORT Date of service: 08/24/2018 EKG Measurement Heart [id number] <Conclusion> Atrial fibrillation with rapid ventricular response with premature ventricular or aberrantly conducted complexes Low voltage QRS Septal infarct, age undetermined Abnormal ECG
[2018-08-24 22:04] VITALS: PULSE 111
[2018-08-24] MEDS: Insulin Detemir 100 units/ml Vial (Levemir) SC SCH (22:04)
[2018-08-25] MEDS: diltiaZEM IVPB 100mg in NS 100 ML IV PRN ×2 (01:00→12:05)
--- NOTE | 2018-08-25 02:14 | CON ---
DATE: 08/24/2018 CARDIOLOGY CONSULTATION REASON FOR CONSULTATION: Admitted for generalized weakness, atrial fibrillation, rapid ventricular rate (chronic atrial fibrillation on Eliquis). BRIEF CLINICAL HISTORY: This 78-year-old female with a past medical history significant for COPD, diabetes, chronic atrial fibrillation on Eliquis, stress incontinence, came to the emergency room feeling very weak and generalized weakness. Denies any chest pain, but feels some occasional palpitations. Patient in ER found to be in AFib with rapid ventricular rate. Patient was recently discharged from the hospital with the patient initially admitted with acute bronchitis, upper respiratory tract infection, AFib with rapid ventricular rate and now discharged, came back again. PAST MEDICAL HISTORY: Significant for coronary artery disease, status post a stent in the past being followed by Dr. [facility], Dr. Mccain, history of coronary artery disease, chronic atrial fibrillation, and history of COPD. PAST SURGICAL HISTORY: Significant for lumpectomy, hysterectomy, oophorectomy, appendectomy, and tonsillectomy in the past. ALLERGIES: ALLERGY TO PENICILLIN, SHRIMP, CLARITHROMYCIN, AND FLU VACCINE. SOCIAL HISTORY: Denies smoking. Denies any history of alcohol abuse. CURRENT MEDICATIONS: The patient at home was taking hydralazine 50 mg twice a day, clonidine 0.1 mg twice a day, verapamil 240 mg daily, spironolactone 25 mg daily, lisinopril 40 mg daily, levothyroxine 0.05 mg daily, insulin, galantamine, famotidine, Pepcid 40 mg daily, atorvastatin 40 mg daily, atenolol 25 mg daily, and apixaban 5 mg twice. PREVIOUS CARDIAC WORKUP: As follows; the patient had a recent echo on 08/11/2018 when the patient was admitted last week that showed normal LV, ejection fraction 55%, atrial fibrillation, trace aortic regurgitation, mild aortic stenosis with aortic sclerosis, trace mitral regurgitation, mild tricuspid regurgitation. RV systolic pressure 40. History of coronary artery disease, history of multiple stent in 1991, 1999, and 2009 in LAD and circumflex. History of atrial fibrillation being followed by Dr. Kaur Tierney, Dr. Andrade and Dr. Mccain at [facility] ([facility] On last admission, I spoke to Dr. Mccain, he said the coronary artery is fairly stable and no history of recent angina. Patient was here in [facility] had a cardiac catheterization 06/27/2012 that showed patent stent in LAD, patent stent in circumflex, RCA is nondominant, diagonal 1 has moderate disease and medical treatment recommended dated 07/07/2012. SOCIAL HISTORY: As mentioned. Denies smoking. Denies any history of alcohol abuse. REVIEW OF SYSTEMS: As per HPI. PHYSICAL EXAMINATION: GENERAL: Height of the patient is 5 feet 3 inches, weight of the patient is 175 pounds, and body mass index 31 kg/m2. VITAL SIGNS: Temperature afebrile, heart rate 138, and blood pressure 112/60. HEENT: PERRLA. Extraocular muscles intact. NECK: Supple. No carotid bruits or thyromegaly. CHEST: Clear to auscultation. HEART: S1 and S2, regular. ABDOMEN: Soft. EXTREMITIES: Clubbing, cyanosis negative. LABORATORY DATA: Blood workup, WBC 13.3, hemoglobin 13.8, hematocrit 41.7, and platelet count 300. Chemistry shows sodium 133, potassium 4.8, chloride 101, carbon dioxide 25, anion gap of 12, BUN 18, creatinine 0.7. BNP 1660. Magnesium 1.5. EKG shows AFib with rapid ventricular rate. Chest x-ray reviewed revealed minimal mild congestion with encephalization, pulmonary vascular shift towards the cranium suggestive of mild CHF. IMPRESSION AND PLAN: An 78-year-old female with the past medical history significant for coronary artery disease status post stent in 1991, 1999, and 2009, left anterior descending and circumflex last catheterization on 06/27/2012, patent stent, history of chronic atrial fibrillation on Eliquis admitted with generalized weakness, atrial fibrillation with rapid ventricular rate. I told the ER to start Cardizem drip 10 mg, but apparently patient is on 5 mg rate is fast. We will give a dose of verapamil to control the heart rate and increase the Cardizem to 10 mg daily. Follow up with serial CPK troponin. We will give one dose of Lasix and start Lasix p.o. from tomorrow. Once the rate is controlled, we will change Cardizem to p.o. verapamil as before and continue low dose of beta titi. Treat urinary tract infection, patient has in the past and hair culture, blood culture, and we will follow any source of infection, elevated wbc. We will follow further recommendation made after hospital course. Recent echo showed preserved LV function. No significant regurgitation or stenotic valve disease dated 08/10/2018. We will follow with you. We will resume all medications including diuretics. Thank you Dr. Woodruff, for providing us the opportunity in taking care of the patient, Hawa Chavis. Gail Modi MD
[2018-08-25 07:21] LABS: BASO # 0.01 K/mm3 (0.0-2.0); BASO % 0.1 % (0.0-3.0); EOS # 0.1 (0.0-0.7); EOS % 1.1 % (1.5-5.0); HEMOGLOBIN 14.4 g/dL (12.0-16.0); LYMPH # 1.9 (1.2-3.4); LYMPH % 15.3 % (22.0-35.0); MEAN CELL VOLUME 95.2 fl (80.0-105.0); MEAN CORPUSCULAR HEMOGLOBIN 31.6 pg (25.0-35.0); MEAN CORPUSCULAR HGB CONC 33.3 g/dl (31.0-37.0); MEAN PLATELET VOLUME 11.8 fl (7.0-11.0); MONO # 1.4 (0.1-0.6); MONO % 11.9 % (1.0-6.0); RBC 4.55 10^6/uL (3.5-6.1); RED CELL DISTRIBUTION WIDTH 13.4 % (11.5-14.5); WHITE BLOOD COUNT 12.1 10^3/uL (4.5-11.0)
[2018-08-25 07:44] LABS: ALB/GLOB RATIO 1.2 (1.1-1.8); ALBUMIN 3.5 g/dL (3.0-4.8); ALT/SGPT 35 U/L (7-56); AST/SGOT 23 U/L (14-36); BLOOD UREA NITROGEN 14 mg/dL (7-21); CALCIUM 8.9 mg/dL (8.4-10.5); GFR NON-AFRICAN AMERICAN > 60
[2018-08-25] MEDS: Insulin Lispro 1 UNITS/0.01 ML SC SCH ×3 (09:06→17:48)
[2018-08-25] MEDS: Insulin Lispro (humaLOG) LOW Coverage SC SCH ×4 (09:07→21:38)
[2018-08-25] MEDS: Levothyroxine 75 MCG TAB PO SCH (09:09)
--- NOTE | 2018-08-25 09:32 | CP.PCM.PN ---
Subjective - Date & Time of Evaluation Date of Evaluation: 08/25/18 Time of Evaluation: 06:35 - Subjective Subjective: Awake, alert, no distress Reason for consultation and follow up: Cardiac evaluation of rapid atrial fibrillation, history of chronic atrial fibrillation, admitted for generalized weakness, history of COPD, diabetes, stress incontinence Seen and examined by me and Dr. Felder Objective - Vital Signs/Intake and Output Vital Signs (last 24 hours): Temp Pulse Resp BP Pulse Ox 98.2 F 136 H 18 129/75 97 08/25/18 05:56 08/25/18 09:07 08/25/18 05:56 08/25/18 09:08 08/24/18 14:40 Intake and Output: 08/25/18 08/25/18 06:59 18:59 Intake Total 1670 Output Total 400 Balance 1270 - Medications Medications: Current Medications Apixaban (Eliquis) 5 mg PO BID [facility]; Protocol Last Admin: 08/25/18 09:08 Dose: 5 mg Atenolol (Tenormin) 12.5 mg PO BID [facility] Last Admin: 08/25/18 09:07 Dose: 12.5 mg Furosemide (Lasix) 40 mg PO DAILY [facility] Last Admin: 08/25/18 09:08 Dose: 40 mg diltiaZEM IVPB 100mg in NS (Cardizem 100mg In Ns) 100 mls @ 10 mls/hr IV .Q10H PRN; Protocol PRN Reason: TITRATE PER MD ORDER Last Admin: 08/25/18 01:00 Dose: 10 mg/hr, 10 mls/hr Insulin Detemir (Levemir) 20 unit SC HS [facility] Last Admin: 08/24/18 22:04 Dose: Not Given Insulin Human Lispro (Humalog) 12 units SC AC [facility] Last Admin: 08/25/18 09:06 Dose: 12 units Insulin Human Lispro (Humalog Low) 0 units SC ACHS [facility]; Protocol Last Admin: 08/25/18 09:07 Dose: 1 units Levothyroxine Sodium (Synthroid) 75 mcg PO DAILY [facility] Last Admin: 08/25/18 09:09 Dose: 75 mcg - Labs Labs: 08/25/18 07:00 08/25/18 07:00 PT 18.7 SECONDS (9.4-12.5) H 03/08/19 11:45 INR 1.65 08/24/18 11:45 APTT 37.9 Seconds (26.9-38.3) 08/24/18 11:45 - Constitutional Appears: Non-toxic, No Acute Distress - Head Exam Head Exam: NORMAL INSPECTION, NORMOCEPHALIC - Eye Exam Eye Exam: Normal appearance Pupil Exam: NORMAL ACCOMODATION - ENT Exam ENT Exam: Mucous Membranes Moist, Normal Exam - Respiratory Exam Respiratory Exam: Clear to Ausculation Bilateral, NORMAL BREATHING PATTERN - Cardiovascular Exam Cardiovascular Exam: Irregular Rhythm, +S1, +S2 Additional comments: Telemetry atrial fib 100-120's - GI/Abdominal Exam GI & Abdominal Exam: Soft, Normal Bowel Sounds - Extremities Exam Extremities Exam: Full ROM, Normal Capillary Refill - Neurological Exam Neurological Exam: Alert, Awake, Oriented x3 - Psychiatric Exam Psychiatric exam: Normal Affect, Normal Mood - Skin Skin Exam: Dry, Normal Color, Warm Assessment and Plan - Assessment and Plan (Free Text) Assessment: An 78 year old female who came in to the ER due to generalized weakness and chest palpitations. History of coronary artery disease post stents in 1991, 1999, 2009. Cardiac cath in 2012 showed patent stents of LAD and Circumflex, diabetes,hypothyroidism, COPD, chronic A-fib on Eliquis, stress incontinence, Lumpectomy, hysterectomy and oophorectomy, appendectomy, tonsillectomy. she was just recently discharge from the hospital due to acute bronchitis and upper respiratory infection. Started on Cardizem drip in ER , Digoxin was given,and patient transferred to telemetry unit.Echo on 08/11/18 showed LVEF 55%, trace AR/MR, mild TR RVSP 40 mmHg. Heart rate still 110-120's, will increase Atenolol. Plan: No distress Heart rate atrial fibrillation at 110-120's Will increase Atenolol 25 mg daily, additional 12.5 mg today On Cardizem drip at 10mg/Hr Verapamil IV push PRN Blood pressure stable On Eliquis 5 mg BID, Tenormin 12.5 mg BID, Lasix 40 mg daily, Synthroid 75 mcg daily Continue current treatment Continue current medications Will follow up Plan and treatment discussed with Dr. Felder
--- NOTE | 2018-08-25 11:18 | HP ---
DATE OF EXAM: 08/25/2018 HISTORY OF PRESENT ILLNESS: The patient was seen and examined. I do agree with note of the biomedical service engineer. I the plan of care. The patient is well known to me, she is coming to the hospital with history of COPD, atrial fibrillation, urinary incontinence, complaining of weakness. She was found to have atrial fibrillation with rapid rate. She was started on Cardizem drip. The patient was discharge from the hospital about 2 weeks ago. At that time, she had been advised to go to subacute rehab, but she had refused. I had received a call from the patient's family stating that she is not doing well because she has a difficulty time in ambulating. The patient is open to the idea of going to rehab facility at this point. The patient was seen by Dr. Modi for the atrial fibrillation, the rate is still elevated. The patient has diabetes type II, she is going to be on insulin coverage. The patient has had hypothyroidism and is going to continue with levothyroxine. The patient had COPD and has been placed on Xopenex. We will await further input from the patrol lady. The patient's labs have been reviewed. She is going to continue with her Eliquis for the atrial fibrillation. She is on Lasix daily. She is receiving heart healthy diet. Tod Woodruff MD
[2018-08-25] MEDS: Insulin Detemir 100 units/ml Vial (Levemir) SC SCH (21:39)
[2018-08-26] MEDS: diltiaZEM IVPB 100mg in NS 100 ML IV PRN ×2 (05:46→15:42)
[2018-08-26 06:57] LABS: BASO # 0.02 K/mm3 (0.0-2.0); BASO % 0.2 % (0.0-3.0); EOS # 0.2 (0.0-0.7); EOS % 1.4 % (1.5-5.0); HEMOGLOBIN 14.1 g/dL (12.0-16.0); LYMPH # 1.9 (1.2-3.4); LYMPH % 15.9 % (22.0-35.0); MEAN CELL VOLUME 95.8 fl (80.0-105.0); MEAN CORPUSCULAR HEMOGLOBIN 31.5 pg (25.0-35.0); MEAN CORPUSCULAR HGB CONC 32.9 g/dl (31.0-37.0); MEAN PLATELET VOLUME 11.6 fl (7.0-11.0); MONO # 1.4 (0.1-0.6); MONO % 11.6 % (1.0-6.0); RBC 4.48 10^6/uL (3.5-6.1); RED CELL DISTRIBUTION WIDTH 13.4 % (11.5-14.5)
[2018-08-26 07:43] LABS: ALB/GLOB RATIO 1.2 (1.1-1.8); ALBUMIN 3.3 g/dL (3.0-4.8); ALT/SGPT 27 U/L (7-56); AST/SGOT 18 U/L (14-36); BLOOD UREA NITROGEN 18 mg/dL (7-21); CALCIUM 9.1 mg/dL (8.4-10.5); GFR NON-AFRICAN AMERICAN > 60
--- NOTE | 2018-08-26 08:20 | CP.PCM.PN ---
Subjective - Date & Time of Evaluation Date of Evaluation: 08/26/18 Time of Evaluation: 06:50 - Subjective Subjective: Awake, alert, no distress, lying in bed Reason for consultation and follow up: Cardiac evaluation of rapid atrial fibrillation, history of chronic atrial fibrillation, admitted for generalized weakness, history of COPD, diabetes, stress incontinence Seen and examined by me and Dr. Felder Objective - Vital Signs/Intake and Output Vital Signs (last 24 hours): Temp Pulse Resp BP Pulse Ox 98.0 F 136 H 21 130/85 98 08/26/18 06:00 08/26/18 06:00 08/26/18 06:00 08/26/18 06:00 08/26/18 06:00 Intake and Output: 08/26/18 08/26/18 06:59 18:59 Intake Total Output Total Balance - Medications Medications: Current Medications Apixaban (Eliquis) 5 mg PO BID [facility]; Protocol Last Admin: 08/25/18 17:49 Dose: 5 mg Atenolol (Tenormin) 25 mg PO DAILY [facility] Furosemide (Lasix) 40 mg PO DAILY [facility] Last Admin: 08/25/18 09:08 Dose: 40 mg diltiaZEM IVPB 100mg in NS (Cardizem 100mg In Ns) 100 mls @ 10 mls/hr IV .Q10H PRN; Protocol PRN Reason: TITRATE PER MD ORDER Last Admin: 08/26/18 05:46 Dose: 10 mg/hr, 10 mls/hr Insulin Detemir (Levemir) 20 unit SC HS [facility] Last Admin: 08/25/18 21:39 Dose: 20 units Insulin Human Lispro (Humalog) 12 units SC AC [facility] Last Admin: 08/25/18 17:48 Dose: 12 units Insulin Human Lispro (Humalog Low) 0 units SC ACHS [facility]; Protocol Last Admin: 08/25/18 21:38 Dose: Not Given Levothyroxine Sodium (Synthroid) 75 mcg PO DAILY [facility] Last Admin: 08/25/18 09:09 Dose: 75 mcg - Labs Labs: 08/26/18 06:40 08/26/18 06:40 PT 18.7 SECONDS (9.4-12.5) H 08/24/18 11:45 INR 1.65 08/24/18 11:45 APTT 37.9 Seconds (26.9-38.3) 08/24/18 11:45 - Constitutional Appears: Non-toxic, No Acute Distress - Head Exam Head Exam: NORMAL INSPECTION, NORMOCEPHALIC - Eye Exam Eye Exam: Normal appearance Pupil Exam: NORMAL ACCOMODATION - ENT Exam ENT Exam: Mucous Membranes Moist, Normal Exam - Cardiovascular Exam Cardiovascular Exam: Irregular Rhythm, +S1, +S2 Additional comments: Telemetry Atrial fibrillation 130's - GI/Abdominal Exam GI & Abdominal Exam: Soft, Normal Bowel Sounds - Extremities Exam Extremities Exam: Full ROM, Normal Capillary Refill - Neurological Exam Neurological Exam: Alert, Awake, Oriented x3 - Psychiatric Exam Psychiatric exam: Normal Affect, Normal Mood - Skin Skin Exam: Dry, Normal Color, Warm Assessment and Plan - Assessment and Plan (Free Text) Assessment: An 78 year old female who came in to the ER due to generalized weakness and chest palpitations. History of coronary artery disease post stents in 1991, 1999, 2009. Cardiac cath in 2012 showed patent stents of LAD and Circumflex, diabetes,hypothyroidism, COPD, chronic A-fib on Eliquis, stress incontinence, Lumpectomy, hysterectomy and oophorectomy, appendectomy, tonsillectomy. she was just recently discharge from the hospital due to acute bronchitis and upper respiratory infection. Started on Cardizem drip in ER , Digoxin was given,and patient transferred to telemetry unit.Echo on 08/11/18 showed LVEF 55%, trace AR/MR, mild TR RVSP 40 mmHg. Heart rate still 110-120's, will increase Atenolol 25 mg BID, continue Cardizem drip. Plan: No distress, feels okay Heart rate atrial fibrillation at 110-130's Will increase Atenolol 25 mg BID Continue Cardizem drip at 10mg/Hr Blood pressure stable On Eliquis 5 mg BID, Tenormin 25 mg BID, Lasix 40 mg daily, Synthroid 75 mcg daily Continue current treatment Continue current medications Will follow up Plan and treatment discussed with Dr. Felder
[2018-08-26] MEDS: Insulin Lispro 1 UNITS/0.01 ML SC SCH ×3 (08:30→17:43)
[2018-08-26] MEDS: Insulin Lispro (humaLOG) LOW Coverage SC SCH ×3 (08:30→17:43)
[2018-08-26] MEDS: Levothyroxine 75 MCG TAB PO SCH (09:38)
--- NOTE | 2018-08-26 15:18 | PN ---
DATE: 08/26/2018 SUBJECTIVE: The patient has no complaints of any chest pain, shortness of breath, headache or dizziness. PHYSICAL EXAMINATION: VITAL SIGNS: Temperature 98, pulse in the 120s, blood pressure 121/80, respiration is 21. GENERAL: The patient is lying in bed, flat, comfortable. HEENT: No oral lesion. Anicteric sclerae. Moist mucosa. NECK: No JVD, adenopathy, or thyromegaly. CARDIOVASCULAR: S1 and S2, regular. No murmurs, rubs, or gallops. LUNGS: Clear to auscultation bilaterally. No wheeze, rales, or rhonchi. ABDOMEN: Bowel sounds are positive, soft, nontender and nondistended. EXTREMITIES: no cyanosis, clubbing or edema. LABS: White count of 12, hemoglobin 10.4, creatinine is 0.7. ASSESSMENT: 1. Atrial fibrillation with rapid rate, on Cardizem. 2. Diabetes type 2. 3. Hypomagnesemia, improved. 4. Chronic obstructive pulmonary disease. 5. Hypothyroidism. 6. Stress incontinence. 7. Obese with a body mass index of 30. PLAN: The patient is currently on Cardizem drip for the atrial fibrillation. The patient is apixaban 5 mg b.i.d. for the anticoagulation for the atrial fibrillation. She is being treated for her diabetes type 2 with insulin Lispro and she also is getting coverage. She is going to continue with the Lasix. She is on levothyroxine for her hypothyroidism and this will be continued. She has been on atenolol for the atrial fibrillation and this has been increased. The patient is on a heart healthy diet. Will need to get physical therapy. She is open to the idea of getting subacute rehab because she had difficulty ambulating and she refused rehab on her last admission. Tod Woodruff MD
[2018-08-26] MEDS: Insulin Detemir 100 units/ml Vial (Levemir) SC SCH (21:38)
[2018-08-27] MEDS: Insulin Lispro (humaLOG) LOW Coverage SC SCH ×5 (00:26→21:23)
[2018-08-27] MEDS: diltiaZEM IVPB 100mg in NS 100 ML IV PRN ×2 (02:15→11:55)
[2018-08-27 06:52] LABS: BASO # 0.02 K/mm3 (0.0-2.0); BASO % 0.2 % (0.0-3.0); EOS # 0.2 (0.0-0.7); EOS % 1.9 % (1.5-5.0); HEMOGLOBIN 13.9 g/dL (12.0-16.0); LYMPH # 2.6 (1.2-3.4); LYMPH % 25.2 % (22.0-35.0); MEAN CELL VOLUME 94.9 fl (80.0-105.0); MEAN CORPUSCULAR HGB CONC 32.7 g/dl (31.0-37.0); MEAN PLATELET VOLUME 11.8 fl (7.0-11.0); MONO # 0.9 (0.1-0.6); MONO % 9.2 % (1.0-6.0); RBC 4.48 10^6/uL (3.5-6.1); RED CELL DISTRIBUTION WIDTH 13.4 % (11.5-14.5); WHITE BLOOD COUNT 10.2 10^3/uL (4.5-11.0)
[2018-08-27 07:01] LABS: ALB/GLOB RATIO 1.2 (1.1-1.8); ALBUMIN 3.3 g/dL (3.0-4.8); ALT/SGPT 21 U/L (7-56); AST/SGOT 17 U/L (14-36); BLOOD UREA NITROGEN 20 mg/dL (7-21); GFR NON-AFRICAN AMERICAN > 60
--- NOTE | 2018-08-27 07:09 | CP.PCM.PN ---
Subjective - Date & Time of Evaluation Date of Evaluation: 08/27/18 Time of Evaluation: 06:30 - Subjective Subjective: Awake, alert, no distress, lying in bed, feels okay Reason for consultation and follow up: Cardiac evaluation of rapid atrial fibrillation, history of chronic atrial fibrillation, admitted for generalized weakness, history of COPD, diabetes, stress incontinence Seen and examined by me and Dr. Modi Objective - Vital Signs/Intake and Output Vital Signs (last 24 hours): Temp Pulse Resp BP Pulse Ox 98.2 F 84 20 107/73 97 08/27/18 00:01 08/27/18 06:00 08/27/18 00:01 08/27/18 00:01 08/27/18 00:01 Intake and Output: 08/27/18 08/27/18 06:59 18:59 Intake Total 580 Output Total 500 Balance 80 - Medications Medications: Current Medications Apixaban (Eliquis) 5 mg PO BID [facility]; Protocol Last Admin: 08/26/18 17:44 Dose: 5 mg Atenolol (Tenormin) 25 mg PO BID [facility] Last Admin: 08/26/18 17:44 Dose: 25 mg Furosemide (Lasix) 40 mg PO DAILY [facility] Last Admin: 08/26/18 09:39 Dose: 40 mg diltiaZEM IVPB 100mg in NS (Cardizem 100mg In Ns) 100 mls @ 10 mls/hr IV .Q10H PRN; Protocol PRN Reason: TITRATE PER MD ORDER Last Admin: 08/27/18 02:15 Dose: 10 mg/hr, 10 mls/hr Insulin Detemir (Levemir) 20 unit SC HS [facility] Last Admin: 08/26/18 21:38 Dose: 20 units Insulin Human Lispro (Humalog) 12 units SC AC [facility] Last Admin: 08/26/18 17:43 Dose: Not Given Insulin Human Lispro (Humalog Low) 0 units SC ACHS [facility]; Protocol Last Admin: 08/27/18 00:26 Dose: Not Given Levothyroxine Sodium (Synthroid) 75 mcg PO DAILY [facility] Last Admin: 08/26/18 09:38 Dose: 75 mcg - Labs Labs: 08/26/18 06:40 08/27/18 06:10 PT 18.7 SECONDS (9.4-12.5) H 08/24/18 11:45 INR 1.65 08/24/18 11:45 APTT 37.9 Seconds (26.9-38.3) 08/24/18 11:45 - Constitutional Appears: Non-toxic, No Acute Distress - Head Exam Head Exam: NORMAL INSPECTION, NORMOCEPHALIC - Eye Exam Eye Exam: Normal appearance Pupil Exam: NORMAL ACCOMODATION - ENT Exam ENT Exam: Mucous Membranes Moist, Normal Exam - Respiratory Exam Respiratory Exam: Clear to Ausculation Bilateral, NORMAL BREATHING PATTERN - Cardiovascular Exam Cardiovascular Exam: Irregular Rhythm, +S1, +S2 - GI/Abdominal Exam GI & Abdominal Exam: Soft, Normal Bowel Sounds - Extremities Exam Extremities Exam: Full ROM, Normal Capillary Refill - Neurological Exam Neurological Exam: Alert, Awake, Oriented x3 - Psychiatric Exam Psychiatric exam: Normal Affect, Normal Mood - Skin Skin Exam: Dry, Normal Color, Warm Assessment and Plan - Assessment and Plan (Free Text) Assessment: An 78 year old female who came in to the ER due to generalized weakness and chest palpitations. History of coronary artery disease post stents in 1991, 1999, 2009. Cardiac cath in 2012 showed patent stents of LAD and Circumflex, diabetes,hypothyroidism, COPD, chronic A-fib on Eliquis, stress incontinence, Lumpectomy, hysterectomy and oophorectomy, appendectomy, tonsillectomy. she was just recently discharge from the hospital due to acute bronchitis and upper respiratory infection. Started on Cardizem drip in ER , Digoxin was given,and patient transferred to telemetry unit. Echo on 08/11/18 showed LVEF 55%, trace AR/MR, mild TR RVSP 40 mmHg. Heart rate still 110-130's, Continue Cardizem drip. Will starts Amiodarone 400 mg TID for 2 days then 200 mg daily. Plan: No distress, feels okay Heart rate still at atrial fibrillation at 120-130's Continue Cardizem drip at 10mg/Hr Will start on Amiodarone 400 mg TID for 2 days then 200 mg daily. Blood pressure stable On Eliquis 5 mg BID, Tenormin 25 mg BID, Lasix 40 mg daily, Synthroid 75 mcg daily Continue current treatment Continue current medications Will follow up Plan and treatment discussed with Dr. Modi
[2018-08-27] MEDS: Insulin Lispro 1 UNITS/0.01 ML SC SCH ×3 (09:04→17:10)
[2018-08-27] MEDS: Levothyroxine 75 MCG TAB PO SCH (09:19)
--- NOTE | 2018-08-27 11:12 | CP.PCM.PN ---
<Noemi Parnell - Last Filed: 08/27/18 13:41> Subjective - Date & Time of Evaluation Date of Evaluation: 08/27/18 Time of Evaluation: 08:45 - Subjective Subjective: IM progress note for Dr. Woodruff's service Patient with no acute events overnight. HR on telemetry still fluctuating, AFIb in the 80s to 130s. Patient states she feels better overall. Patient states she had bowel movement this morning. Denies cp or sob. Objective - Vital Signs/Intake and Output Vital Signs (last 24 hours): Temp Pulse Resp BP Pulse Ox 98.2 F 98 H 20 102/72 97 08/27/18 00:01 08/27/18 09:19 08/27/18 00:01 08/27/18 09:19 08/27/18 00:01 Intake and Output: 08/27/18 08/27/18 06:59 18:59 Intake Total 580 Output Total 500 Balance 80 - Medications Medications: Current Medications Amiodarone HCl (Cordarone) 400 mg PO TID [facility] Stop: 08/28/18 23:59 Last Admin: 08/27/18 09:18 Dose: 400 mg Amiodarone HCl (Cordarone) 200 mg PO DAILY [facility] Last Admin: 08/27/18 09:18 Dose: 200 mg Apixaban (Eliquis) 5 mg PO BID [facility]; Protocol Last Admin: 08/27/18 09:19 Dose: 5 mg Atenolol (Tenormin) 25 mg PO BID [facility] Last Admin: 08/27/18 09:19 Dose: 25 mg Furosemide (Lasix) 40 mg PO DAILY [facility] Last Admin: 08/27/18 09:05 Dose: 40 mg diltiaZEM IVPB 100mg in NS (Cardizem 100mg In Ns) 100 mls @ 10 mls/hr IV .Q10H PRN; Protocol PRN Reason: TITRATE PER MD ORDER Last Admin: 08/27/18 02:15 Dose: 10 mg/hr, 10 mls/hr Insulin Detemir (Levemir) 20 unit SC HS [facility] Last Admin: 08/26/18 21:38 Dose: 20 units Insulin Human Lispro (Humalog) 12 units SC AC [facility] Last Admin: 08/27/18 09:04 Dose: 12 units Insulin Human Lispro (Humalog Low) 0 units SC ACHS [facility]; Protocol Last Admin: 08/27/18 09:05 Dose: 1 units Levothyroxine Sodium (Synthroid) 75 mcg PO DAILY [facility] Last Admin: 08/27/18 09:19 Dose: 75 mcg - Labs Labs: 08/27/18 06:10 08/27/18 06:10 PT 18.7 SECONDS (9.4-12.5) H 08/24/18 11:45 INR 1.65 08/24/18 11:45 APTT 37.9 Seconds (26.9-38.3) 08/24/18 11:45 - Constitutional Appears: No Acute Distress, Chronically Ill - Head Exam Head Exam: ATRAUMATIC, NORMAL INSPECTION, NORMOCEPHALIC - Eye Exam Eye Exam: Normal appearance, PERRL Pupil Exam: NORMAL ACCOMODATION - ENT Exam ENT Exam: Mucous Membranes Moist - Neck Exam Neck Exam: Normal Inspection - Respiratory Exam Respiratory Exam: Clear to Ausculation Bilateral, NORMAL BREATHING PATTERN. absent: Rales, Rhonchi, Wheezes, Respiratory Distress, Stridor - Cardiovascular Exam Cardiovascular Exam: Irregular Rhythm, +S1, +S2. absent: Bradycardia, Tachycardia, Gallop, JVD, Rubs, Murmur - GI/Abdominal Exam GI & Abdominal Exam: Soft, Normal Bowel Sounds. absent: Distended, Firm, Guarding, Rigid, Tenderness, Rebound - Extremities Exam Extremities Exam: Normal Inspection. absent: Pedal Edema - Back Exam Back Exam: NORMAL INSPECTION - Neurological Exam Neurological Exam: Alert, Awake, Oriented x3 - Psychiatric Exam Psychiatric exam: Normal Affect, Normal Mood - Skin Skin Exam: Dry, Warm Assessment and Plan - Assessment and Plan (Free Text) Assessment: 1) RVR AFIB 2) Hypothyroidism 3) IDDM 4) COPD 5) H/O CAD with 3 stents 6) Stress incontinence Plan: Patient's HR is curently fluctuating from 80s to 130s. Patient is on cardizem drip, and atenolol 25 mg bid as per supervisor pressing department. Amiodorone 400 mg tid for loading dose and 200 mg daily thereafter was started by cardio. Patient with [id number] score of 6, thus on eliquis for the afib. Will continue synthroid for hypothyroidism, on Lasix 40 mg daily for h/o diastolic chf. Will continue with levemir 20 units hs, humalog 12 units ac, and insulin sliding scale for coverage. Heart healthy moderate carbohydrate controlled diet. Dr. Woodruff spoke to patient extensively and patient is agreeing to go to a rehab to get her strength back. Patient seen, examined and case discussed with Dr. Woodruff. <Tod Woodruff - Last Filed: 08/27/18 15:57> Objective - Vital Signs/Intake and Output Vital Signs (last 24 hours): Temp Pulse Resp BP Pulse Ox 97.9 F 99 H 20 127/83 97 08/27/18 11:49 08/27/18 14:00 08/27/18 11:49 08/27/18 13:49 08/27/18 00:01 Intake and Output: 08/27/18 08/27/18 06:59 18:59 Intake Total 580 100 Output Total 500 Balance 80 100 - Medications Medications: Current Medications Amiodarone HCl (Cordarone) 400 mg PO TID [facility] Stop: 08/28/18 23:59 Last Admin: 08/27/18 13:50 Dose: 400 mg Amiodarone HCl (Cordarone) 200 mg PO DAILY [facility] Last Admin: 08/27/18 09:18 Dose: 200 mg Apixaban (Eliquis) 5 mg PO BID [facility]; Protocol Last Admin: 08/27/18 09:19 Dose: 5 mg Atenolol (Tenormin) 25 mg PO BID [facility] Last Admin: 08/27/18 09:19 Dose: 25 mg Diltiazem HCl (Cardizem) 60 mg PO TID [facility] Last Admin: 08/27/18 13:49 Dose: 60 mg Furosemide (Lasix) 40 mg PO DAILY [facility] Last Admin: 08/27/18 09:05 Dose: 40 mg Insulin Detemir (Levemir) 20 unit SC HS [facility] Last Admin: 08/26/18 21:38 Dose: 20 units Insulin Human Lispro (Humalog) 12 units SC AC [facility] Last Admin: 08/27/18 12:30 Dose: 12 units Insulin Human Lispro (Humalog Low) 0 units SC ACHS [facility]; Protocol Last Admin: 08/27/18 12:30 Dose: 2 units Levothyroxine Sodium (Synthroid) 75 mcg PO DAILY [facility] Last Admin: 08/27/18 09:19 Dose: 75 mcg - Labs Labs: 08/27/18 06:10 08/27/18 06:10 PT 18.7 SECONDS (9.4-12.5) H 08/24/18 11:45 INR 1.65 08/24/18 11:45 APTT 37.9 Seconds (26.9-38.3) 08/24/18 11:45 Assessment and Plan - Assessment and Plan (Free Text) Plan: Pt seen and examined by me. I have reviewed the note of the medical office assistant instructor and I agree with it. I have discussed the assessment and plan with the resident. I have reviewed the medications and the last labs.
--- NOTE | 2018-08-27 20:52 | PN ---
DATE: 08/27/2018 SUBJECTIVE: The patient was seen and examined. I do agree with the note of the medical auditor. I was involved in the plan of care, and the patient was seen by Dr. Modi. The patient continues to have atrial fibrillation and is on the Cardizem drip. She has been started on amiodarone. She will be loaded and then will continue with 200 mg daily. She is receiving Eliquis for her anticoagulation. She is also on Tenormin that has been titrated up to 25 mg b.i.d. She will continue her Lasix. She is on Synthroid for her hypothyroidism. The patient does have EF of 55%. She has a right ventricular systolic pressure of 40 mmHg. She had a cath done in the past. Last cath is 2012 that showed patent stents of the LAD and circumflex. PLAN: She is open to the idea of going to subacute rehab once the Cardizem has been off. She continues to have atrial fibrillation with rapid rate. She has diabetes type 2. She is on insulin with coverage. The patient is on her Levemir and Humalog. She is currently comfortable. She remains on Telemetry. She is tolerating her diet. Tod Woodruff MD
[2018-08-27] MEDS: Insulin Detemir 100 units/ml Vial (Levemir) SC SCH (21:26)
[2018-08-28 07:20] LABS: BASO # 0.02 K/mm3 (0.0-2.0); BASO % 0.2 % (0.0-3.0); EOS # 0.2 (0.0-0.7); EOS % 1.7 % (1.5-5.0); HEMOGLOBIN 14.5 g/dL (12.0-16.0); LYMPH # 1.8 (1.2-3.4); LYMPH % 17.3 % (22.0-35.0); MEAN CELL VOLUME 95.6 fl (80.0-105.0); MEAN CORPUSCULAR HEMOGLOBIN 32.2 pg (25.0-35.0); MEAN CORPUSCULAR HGB CONC 33.7 g/dl (31.0-37.0); MEAN PLATELET VOLUME 12.1 fl (7.0-11.0); MONO # 1.5 (0.1-0.6); MONO % 14.8 % (1.0-6.0); RBC 4.5 10^6/uL (3.5-6.1); RED CELL DISTRIBUTION WIDTH 13.5 % (11.5-14.5); WHITE BLOOD COUNT 10.2 10^3/uL (4.5-11.0)
[2018-08-28 07:40] LABS: BLOOD UREA NITROGEN 22 mg/dL (7-21); CALCIUM 9.4 mg/dL (8.4-10.5); GFR NON-AFRICAN AMERICAN > 60
--- NOTE | 2018-08-28 07:41 | CP.PCM.PN ---
Subjective - Date & Time of Evaluation Date of Evaluation: 08/28/18 Time of Evaluation: 06:40 - Subjective Subjective: Awake, alert, no distress, lying in bed, slept good last night Reason for consultation and follow up: Cardiac evaluation of rapid atrial fibrillation, history of chronic atrial fibrillation, admitted for generalized weakness, history of COPD, diabetes, stress incontinence Seen and examined by me and Dr. Moid Objective - Vital Signs/Intake and Output Vital Signs (last 24 hours): Temp Pulse Resp BP Pulse Ox 98.4 F 127 H 20 123/81 97 08/28/18 06:00 08/28/18 06:00 08/28/18 06:00 08/28/18 06:00 08/28/18 06:00 Intake and Output: 08/28/18 08/28/18 06:59 18:59 Intake Total 1440 Output Total 750 Balance 690 - Medications Medications: Current Medications Amiodarone HCl (Cordarone) 400 mg PO TID [facility] Stop: 08/28/18 23:59 Last Admin: 08/27/18 17:12 Dose: 400 mg Amiodarone HCl (Cordarone) 200 mg PO DAILY [facility] Last Admin: 08/27/18 09:18 Dose: 200 mg Apixaban (Eliquis) 5 mg PO BID [facility]; Protocol Last Admin: 08/27/18 17:13 Dose: 5 mg Atenolol (Tenormin) 25 mg PO BID [facility] Last Admin: 08/27/18 17:13 Dose: 25 mg Diltiazem HCl (Cardizem) 60 mg PO TID [facility] Last Admin: 08/27/18 17:13 Dose: 60 mg Furosemide (Lasix) 40 mg PO DAILY [facility] Last Admin: 08/27/18 09:05 Dose: 40 mg Insulin Detemir (Levemir) 20 unit SC HS [facility] Last Admin: 08/27/18 21:26 Dose: 20 units Insulin Human Lispro (Humalog) 12 units SC AC [facility] Last Admin: 08/27/18 17:10 Dose: 12 units Insulin Human Lispro (Humalog Low) 0 units SC ACHS [facility]; Protocol Last Admin: 08/27/18 21:23 Dose: Not Given Levothyroxine Sodium (Synthroid) 75 mcg PO DAILY [facility] Last Admin: 08/27/18 09:19 Dose: 75 mcg - Labs Labs: 08/28/18 06:30 03/11/19 06:10 PT 18.7 SECONDS (9.4-12.5) H 08/24/18 11:45 INR 1.65 08/24/18 11:45 APTT 37.9 Seconds (26.9-38.3) 08/24/18 11:45 - Constitutional Appears: Non-toxic, No Acute Distress - Head Exam Head Exam: NORMAL INSPECTION, NORMOCEPHALIC - Eye Exam Eye Exam: Normal appearance Pupil Exam: NORMAL ACCOMODATION - ENT Exam ENT Exam: Mucous Membranes Moist, Normal Exam - Respiratory Exam Respiratory Exam: Decreased Breath Sounds, Clear to Ausculation Bilateral, NORMAL BREATHING PATTERN - Cardiovascular Exam Cardiovascular Exam: Irregular Rhythm, +S1, +S2 Additional comments: telemetry-atrial fibrillation- 90-110's - GI/Abdominal Exam GI & Abdominal Exam: Soft, Normal Bowel Sounds - Extremities Exam Extremities Exam: Full ROM, Normal Capillary Refill - Neurological Exam Neurological Exam: Alert, Awake, Oriented x3 - Psychiatric Exam Psychiatric exam: Normal Affect, Normal Mood - Skin Skin Exam: Dry, Normal Color, Warm Assessment and Plan - Assessment and Plan (Free Text) Assessment: An 78 year old female who came in to the ER due to generalized weakness and chest palpitations. History of coronary artery disease post stents in 1991, 1999, 2009. Cardiac cath in 2012 showed patent stents of LAD and Circumflex, diabetes,hypothyroidism, COPD, chronic A-fib on Eliquis, stress incontinence, Lumpectomy, hysterectomy and oophorectomy, appendectomy, tonsillectomy. she was just recently discharge from the hospital due to acute bronchitis and upper respiratory infection. Started on Cardizem drip in ER , Digoxin was given,and patient transferred to telemetry unit. Echo on 08/11/18 showed LVEF 55%, trace AR/MR, mild TR RVSP 40 mmHg. Heart rate slowing down. Started oral Amiodarone yesterday. Cardizem drip discontinued and switch to oral. Plan: No distress, denies shortness of breath Heart rate slowing down ,atrial fibrillation at 90's to 110's Discontinued Cardizem drip and switched to oral Started on oral Amiodarone yesterday Blood pressure stable On Eliquis 5 mg BID, Tenormin 25 mg BID, Lasix 40 mg daily, Synthroid 75 mcg daily, Amiodarone 400 mg TID today then 200mg daily Cardizem 60 mg TID Continue current treatment Continue current medications Physical therapy Discharge planning Will follow up Plan and treatment discussed with Dr. Modi
[2018-08-28] MEDS: Insulin Lispro 1 UNITS/0.01 ML SC SCH ×3 (08:34→17:13)
[2018-08-28] MEDS: Insulin Lispro (humaLOG) LOW Coverage SC SCH ×4 (08:35→21:31)
[2018-08-28] MEDS: Levothyroxine 75 MCG TAB PO SCH (09:03)
--- NOTE | 2018-08-28 11:31 | CP.PCM.PN ---
<Noemi Parnell - Last Filed: 08/28/18 11:44> Subjective - Date & Time of Evaluation Date of Evaluation: 08/28/18 Time of Evaluation: 06:20 - Subjective Subjective: IM resident progress note for Dr. Woodruff's service Patient with no acute events overnight. States she slept well. HR on tele 80- 110, increases to 120s while on commode or moving. Patient states she felt short of breath while walking with PT yesterday. Denies cp. No SOB at rest. Tolerating po, and no fever or chills. Objective - Vital Signs/Intake and Output Vital Signs (last 24 hours): Temp Pulse Resp BP Pulse Ox 98.4 F 116 H 20 141/87 97 08/28/18 06:00 08/28/18 09:02 08/28/18 06:00 08/28/18 09:02 08/28/18 06:00 Intake and Output: 08/28/18 08/28/18 06:59 18:59 Intake Total 1440 Output Total 750 Balance 690 - Medications Medications: Current Medications Amiodarone HCl (Cordarone) 400 mg PO TID [facility] Stop: 08/28/18 23:59 Last Admin: 08/28/18 09:01 Dose: 400 mg Amiodarone HCl (Cordarone) 200 mg PO DAILY [facility] Last Admin: 08/28/18 09:02 Dose: 200 mg Apixaban (Eliquis) 5 mg PO BID [facility]; Protocol Last Admin: 08/28/18 09:03 Dose: 5 mg Atenolol (Tenormin) 25 mg PO BID [facility] Last Admin: 08/28/18 09:00 Dose: 25 mg Diltiazem HCl (Cardizem) 60 mg PO TID [facility] Last Admin: 08/28/18 09:02 Dose: 60 mg Furosemide (Lasix) 40 mg PO DAILY [facility] Last Admin: 08/28/18 09:01 Dose: 40 mg Insulin Detemir (Levemir) 20 unit SC HS [facility] Last Admin: 08/27/18 21:26 Dose: 20 units Insulin Human Lispro (Humalog) 12 units SC AC [facility] Last Admin: 08/28/18 08:34 Dose: 12 units Insulin Human Lispro (Humalog Low) 0 units SC ACHS [facility]; Protocol Last Admin: 08/28/18 08:35 Dose: 2 units Levothyroxine Sodium (Synthroid) 75 mcg PO DAILY [facility] Last Admin: 08/28/18 09:03 Dose: 75 mcg - Labs Labs: 08/28/18 06:30 08/28/18 06:30 PT 18.7 SECONDS (9.4-12.5) H 08/24/18 11:45 INR 1.65 08/24/18 11:45 APTT 37.9 Seconds (26.9-38.3) 08/24/18 11:45 - Constitutional Appears: No Acute Distress, Chronically Ill - Head Exam Head Exam: ATRAUMATIC, NORMAL INSPECTION, NORMOCEPHALIC - Eye Exam Eye Exam: Normal appearance - ENT Exam ENT Exam: Mucous Membranes Moist - Neck Exam Neck Exam: Normal Inspection - Respiratory Exam Respiratory Exam: Clear to Ausculation Bilateral, NORMAL BREATHING PATTERN. absent: Rales, Rhonchi, Wheezes, Respiratory Distress, Stridor - Cardiovascular Exam Cardiovascular Exam: Tachycardia, Irregular Rhythm, +S1, +S2. absent: Gallop, JVD, Rubs, Murmur - GI/Abdominal Exam GI & Abdominal Exam: Soft, Normal Bowel Sounds. absent: Distended, Firm, Guarding, Rigid, Tenderness, Rebound Additional comments: + Obese abdomen. - Extremities Exam Extremities Exam: Normal Inspection. absent: Pedal Edema - Back Exam Back Exam: NORMAL INSPECTION - Neurological Exam Neurological Exam: Alert, Awake, Oriented x3 - Psychiatric Exam Psychiatric exam: Normal Affect, Normal Mood - Skin Skin Exam: Dry, Normal Color, Warm Assessment and Plan - Assessment and Plan (Free Text) Assessment: 1) RVR AFIB 2) Hypothyroidism 3) IDDM 4) COPD 5) H/O CAD with 3 stents 6) Stress incontinence Plan: Patient is now on po Cardizem 60 mg tid, amiodorone 400 tid as loading dose, then amiodorone 200 mg daily. Will continue eliquis 5 mg bid, atenolol 25 mg bid for Afib. Will continue levemir 20 hs and humalog 12 AC, with sliding scale for DM. on synthroid for hypothyroidism. Patient is also on Lasix 40 mg daily for SOB. Patient to be discharged to [facility] once medically optimized. Patient seen, examined and case discussed with Dr. Woodruff. <Tod Woodruff - Last Filed: 08/28/18 18:49> Objective - Vital Signs/Intake and Output Vital Signs (last 24 hours): Temp Pulse Resp BP Pulse Ox 98 F 89 19 122/85 97 08/28/18 17:35 08/28/18 17:35 08/28/18 17:35 08/28/18 17:35 08/28/18 06:00 Intake and Output: 08/28/18 08/28/18 06:59 18:59 Intake Total 1440 Output Total 750 Balance 690 - Medications Medications: Current Medications Amiodarone HCl (Cordarone) 400 mg PO TID [facility] Stop: 08/28/18 23:59 Last Admin: 08/28/18 14:06 Dose: 400 mg Amiodarone HCl (Cordarone) 200 mg PO DAILY [facility] Last Admin: 08/28/18 09:02 Dose: 200 mg Apixaban (Eliquis) 5 mg PO BID [facility]; Protocol Last Admin: 08/28/18 09:03 Dose: 5 mg Atenolol (Tenormin) 25 mg PO BID [facility] Last Admin: 08/28/18 09:00 Dose: 25 mg Diltiazem HCl (Cardizem) 60 mg PO TID [facility] Last Admin: 08/28/18 14:05 Dose: 60 mg Furosemide (Lasix) 40 mg PO DAILY [facility] Last Admin: 08/28/18 09:01 Dose: 40 mg Insulin Detemir (Levemir) 20 unit SC HS [facility] Last Admin: 08/27/18 21:26 Dose: 20 units Insulin Human Lispro (Humalog) 12 units SC AC [facility] Last Admin: 08/28/18 17:13 Dose: Not Given Insulin Human Lispro (Humalog Low) 0 units SC ACHS [facility]; Protocol Last Admin: 08/28/18 17:13 Dose: Not Given Levothyroxine Sodium (Synthroid) 75 mcg PO DAILY [facility] Last Admin: 08/28/18 09:03 Dose: 75 mcg - Labs Labs: 08/28/18 06:30 08/28/18 06:30 PT 18.7 SECONDS (9.4-12.5) H 08/24/18 11:45 INR 1.65 08/24/18 11:45 APTT 37.9 Seconds (26.9-38.3) 08/24/18 11:45 Assessment and Plan - Assessment and Plan (Free Text) Plan: Pt seen and examined by me. I have reviewed the note of the diagnostic medical sonographer and I agree with it. I have discussed the assessment and plan with the resident. I have reviewed the medications and the last labs.
--- NOTE | 2018-08-28 17:21 | CARD ---
APPROVED REPORT Date of service: 08/28/2018 EKG Measurement Heart [id number] <Conclusion> Atrial fibrillation Low voltage QRS Septal infarct, age undetermined Abnormal ECG
--- NOTE | 2018-08-28 19:54 | PN ---
DATE: 08/28/2018 SUBJECTIVE: The patient was seen and examined. I do agree with the note of the medical grade shoemaker. The plan of care was reviewed with the resident. The patient is off Cardizem for the atrial fibrillation is better controlled. The patient is being loaded with amiodarone 400 mg 3 times a day. She is going to continue with Eliquis for her anticoagulation. She is on atenolol. Her diabetes is controlled with Levemir and Humalog. She is on Synthroid for her hypothyroidism. She is continuing on telemetry. She is on Lasix daily. She is on heart-healthy diet. She had EKG that showed heart rate that was elevated, it is 126 with atrial fibrillation. I did review the note of Dr. Modi. Tod Woodruff MD
[2018-08-28] MEDS: Insulin Detemir 100 units/ml Vial (Levemir) SC SCH (21:41)
[2018-08-29 06:01] VITALS: O2SAT 95
--- NOTE | 2018-08-29 07:07 | CP.PCM.PN ---
Subjective - Date & Time of Evaluation Date of Evaluation: 08/29/18 Time of Evaluation: 06:35 - Subjective Subjective: Sleeping but easily awaken, alert, no distress, lying in bed Reason for consultation and follow up: Cardiac evaluation of rapid atrial fibrillation, history of chronic atrial fibrillation, admitted for generalized weakness, history of COPD, diabetes, stress incontinence Seen and examined by me and Dr. Modi Objective - Vital Signs/Intake and Output Vital Signs (last 24 hours): Temp Pulse Resp BP Pulse Ox 98 F 92 H 20 145/86 95 08/29/18 06:00 08/29/18 06:00 08/29/18 06:00 08/29/18 06:00 08/29/18 06:00 Intake and Output: 08/29/18 08/29/18 06:59 18:59 Intake Total 180 Balance 180 - Medications Medications: Current Medications Amiodarone HCl (Cordarone) 200 mg PO DAILY [facility] Last Admin: 08/28/18 09:02 Dose: 200 mg Apixaban (Eliquis) 5 mg PO BID [facility]; Protocol Last Admin: 08/28/18 18:53 Dose: 5 mg Atenolol (Tenormin) 25 mg PO BID [facility] Last Admin: 08/28/18 18:54 Dose: 25 mg Diltiazem HCl (Cardizem) 60 mg PO TID [facility] Last Admin: 08/28/18 18:53 Dose: 60 mg Furosemide (Lasix) 40 mg PO DAILY [facility] Last Admin: 08/28/18 09:01 Dose: 40 mg Insulin Detemir (Levemir) 20 unit SC HS [facility] Last Admin: 08/28/18 21:41 Dose: 20 units Insulin Human Lispro (Humalog) 12 units SC AC [facility] Last Admin: 08/28/18 17:13 Dose: Not Given Insulin Human Lispro (Humalog Low) 0 units SC ACHS [facility]; Protocol Last Admin: 08/28/18 21:31 Dose: Not Given Levothyroxine Sodium (Synthroid) 75 mcg PO DAILY [facility] Last Admin: 08/28/18 09:03 Dose: 75 mcg - Labs Labs: 08/28/18 06:30 08/28/18 06:30 PT 18.7 SECONDS (9.4-12.5) H 08/24/18 11:45 INR 1.65 08/24/18 11:45 APTT 37.9 Seconds (26.9-38.3) 08/24/18 11:45 - Constitutional Appears: Non-toxic, No Acute Distress - Head Exam Head Exam: NORMAL INSPECTION, NORMOCEPHALIC - Eye Exam Eye Exam: Normal appearance Pupil Exam: NORMAL ACCOMODATION - ENT Exam ENT Exam: Mucous Membranes Moist - Respiratory Exam Respiratory Exam: Decreased Breath Sounds, Clear to Ausculation Bilateral, NORMAL BREATHING PATTERN - Cardiovascular Exam Cardiovascular Exam: Irregular Rhythm, +S1, +S2 Additional comments: Telemetry atrial fibrillation 80-90's - GI/Abdominal Exam GI & Abdominal Exam: Soft, Normal Bowel Sounds - Extremities Exam Extremities Exam: Full ROM, Normal Capillary Refill - Neurological Exam Neurological Exam: Alert, Awake, Oriented x3 - Psychiatric Exam Psychiatric exam: Normal Affect, Normal Mood - Skin Skin Exam: Dry, Normal Color, Warm Assessment and Plan - Assessment and Plan (Free Text) Assessment: An 78 year old female who came in to the ER due to generalized weakness and chest palpitations. History of coronary artery disease post stents in 1991, 1999, 2009. Cardiac cath in 2012 showed patent stents of LAD and Circumflex, diabetes,hypothyroidism, COPD, chronic A-fib on Eliquis, stress incontinence, Lumpectomy, hysterectomy and oophorectomy, appendectomy, tonsillectomy. she was just recently discharge from the hospital due to acute bronchitis and upper respiratory infection. Started on Cardizem drip in ER , Digoxin was given,and patient transferred to telemetry unit. Echo on 08/11/18 showed LVEF 55%, trace AR/MR, mild TR RVSP 40 mmHg. Heart rate slowing down. Heart rate atrial fibri llation controlled with Cardizem and Amiodarone. Cardiac status stable. Discharge planning. Plan: No distress, denies shortness of breath Heart rate controlled, On oral Cardizem and Amiodarone Blood pressure stable On Eliquis 5 mg BID, Tenormin 25 mg BID, Lasix 40 mg daily, Synthroid 75 mcg daily, Amiodarone 200 mg daily,Cardizem 60 mg TID Continue current treatment Continue current medications Physical therapy Discharge planning May discharge from cardiac standpoint Will follow up Plan and treatment discussed with Dr. Modi
[2018-08-29] MEDS ORDERED: Albuterol-Ipratrop 3 mg / 0.5 (3 ml) UD IH ONE (07:45)
--- NOTE | 2018-08-29 08:24 | CP.PCM.DIS ---
<Noemi Parnell - Last Filed: 08/29/18 13:51> Provider - Provider Date of Admission: 08/24/18 12:48 Attending physician: Tod Woodruff MD Primary care physician: Phil Singer MD Consults: 08/24/18 12:51 Cardiology Consult Stat Comment: Consulting Provider: Gail Modi Consulting Physician: Gail Modi Reason for Consult: chronic a fib 08/24/18 15:34 Social Work Referral Routine Comment: d/c plan pt wants more homemaker days Physician Instructions: Reason For Exam: assess 08/24/18 15:35 Nursing Referral for Palliative Care Routine Comment: afib Physician Instructions: Reason For Exam: assess 08/24/18 16:03 Case Management Referral Routine Comment: Physician Instructions: Reason For Exam: Reason for Referral: Discharge Planning Inpatient OPTOMETRIC TECHNICIAN Core Measures Referral Routine Comment: afib Physician Instructions: Reason For Exam: assess Transition In Care/Readmission Reduction Routine Comment: afib Physician Instructions: Reason For Exam: assess Time Spent in preparation of Discharge (in minutes): 45 Diagnosis - Discharge Diagnosis (1) Atrial fibrillation with RVR Status: Resolved (2) Insulin dependent diabetes mellitus Status: Chronic (3) Stress incontinence Status: Chronic (4) COPD exacerbation Status: Chronic Hospital Course - Lab Results Lab Results: Micro Results 08/24/18 20:49 Blood Blood Culture - Preliminary NO GROWTH AFTER 4 DAYS 08/24/18 19:30 Blood Blood Culture - Preliminary NO GROWTH AFTER 4 DAYS 08/24/18 22:55 Urine,Clean Catch Urine Culture - Final Escherichia Coli Enterococcus Faecalis Most Recent Lab Values WBC 10.2 10^3/uL (4.5-11.0) 08/28/18 06:30 RBC 4.50 10^6/uL (3.5-6.1) 08/28/18 06:30 Hgb 14.5 g/dL (12.0-16.0) 08/28/18 06:30 Hct 43.0 % (36.0-48.0) 08/28/18 06:30 MCV 95.6 fl (80.0-105.0) 08/28/18 06:30 MCH 32.2 pg (25.0-35.0) 08/28/18 06:30 MCHC 33.7 g/dl (31.0-37.0) 08/28/18 06:30 RDW 13.5 % (11.5-14.5) 08/28/18 06:30 Plt Count 240 10^3/uL (120.0-450.0) 08/28/18 06:30 MPV 12.1 fl (7.0-11.0) H 08/28/18 06:30 Neut % (Auto) 66.0 % (50.0-68.0) 08/28/18 06:30 Lymph % (Auto) 17.3 % (22.0-35.0) L 08/28/18 06:30 Banner % (Auto) 14.8 % (1.0-6.0) H 08/28/18 06:30 Eos % (Auto) 1.7 % (1.5-5.0) 08/28/18 06:30 Baso % (Auto) 0.2 % (0.0-3.0) 08/28/18 06:30 Lymph # (Auto) 1.8 (1.2-3.4) 08/28/18 06:30 Banner # (Auto) 1.5 (0.1-0.6) H 08/28/18 06:30 Eos # (Auto) 0.2 (0.0-0.7) 08/28/18 06:30 Baso # (Auto) 0.02 K/mm3 (0.0-2.0) 08/28/18 06:30 Absolute Neuts (auto) 6.74 (1.4-6.5) H 08/28/18 06:30 PT 18.7 SECONDS (9.4-12.5) H 08/24/18 11:45 INR 1.65 08/24/18 11:45 APTT 37.9 Seconds (26.9-38.3) 08/24/18 11:45 Sodium 137 mmol/L (132-148) 08/28/18 06:30 Potassium 4.1 mmol/L (3.6-5.0) 08/28/18 06:30 Chloride 99 mmol/L (98-107) 08/28/18 06:30 Carbon Dioxide 32 mmol/L (21-33) 08/28/18 06:30 Anion Gap 11 (10-20) 08/28/18 06:30 BUN 22 mg/dL (7-21) H 08/28/18 06:30 Creatinine 0.9 mg/dl (0.7-1.2) 08/28/18 06:30 Est GFR ( Amer) > 60 08/28/18 06:30 Est GFR (Non-Af Amer) > 60 08/28/18 06:30 POC Glucose (mg/dL) 201 mg/dL (65-110) H 08/25/18 07:36 Random Glucose 186 mg/dL (70-110) H 08/28/18 06:30 Calcium 9.4 mg/dL (8.4-10.5) 08/28/18 06:30 Phosphorus 3.8 mg/dL (2.5-4.5) 08/28/18 06:30 Magnesium 1.7 mg/dL (1.7-2.2) 08/28/18 06:30 Total Bilirubin 0.6 mg/dL (0.2-1.3) 08/27/18 06:10 AST 17 U/L (14-36) 08/27/18 06:10 ALT 21 U/L (7-56) 08/27/18 06:10 Alkaline Phosphatase 64 U/L (38-126) 08/27/18 06:10 Troponin I < 0.01 ng/mL 08/24/18 11:45 NT-Pro-B Natriuret Pep 1660 pg/mL (0-450) H 08/24/18 11:45 Total Protein 6.2 g/dL (5.8-8.3) 08/27/18 06:10 Albumin 3.3 g/dL (3.0-4.8) 08/27/18 06:10 Globulin 2.8 gm/dL 08/27/18 06:10 Albumin/Globulin Ratio 1.2 (1.1-1.8) 08/27/18 06:10 TSH 3rd Generation 1.01 mIU/mL (0.46-4.68) 08/25/18 07:00 Urine Color Yellow (YELLOW) 08/24/18 16:00 Urine Appearance Clear (CLEAR) 08/24/18 16:00 Urine pH 6.0 (4.7-8.0) 08/24/18 16:00 Ur Specific Tiro 1.025 (1.005-1.035) 08/24/18 16:00 Urine Protein Negative mg/dL (<30 mg/dL) 08/24/18 16:00 Urine Glucose (UA) >=1000 mg/dL (NEGATIVE) 08/24/18 16:00 Urine Ketones Negative mg/dL (NEGATIVE) 08/24/18 16:00 Urine Blood Negative (NEGATIVE) 08/24/18 16:00 Urine Nitrate Negative (NEGATIVE) 08/24/18 16:00 Urine Bilirubin Negative (NEGATIVE) 08/24/18 16:00 Urine Urobilinogen 0.2 E.U./dL (<1 E.U./dL) 08/24/18 16:00 Ur Leukocyte Esterase Negative Rk/uL (NEGATIVE) 08/24/18 16:00 - Hospital Course Hospital Course: Patient is an 78 y/o Female with IDDM, COPD not on home O2, A-fib on Eliquis, stress incontinence, recently discharged from the hospital, presenting with generalized weakness and chest palpitations. Patient was found to have rapid ventricular rate atrial fibrillation. Patient was started on Cardizem drip, and her eliquis was resumed. Patient was admitted to [facility] for further management, and information assurance manager was consulted. Patient's HR was still elevated on Cardizem drip on hospital day 3, thus patient was loaded with amiodorone. Patient's HR eventually improved, Cardizem drip was converted to po. Patient was also on po atenolol. Blood cultures were negative for 4 days, ua was normal, urine culture revealed ecoli and enterococcus, however since patient is asymptomatic, have no fever or chills, no leukocytosis, and hemodynamically stable, we will monitor and repeat it as outpatient. Patient was placed on insulin for her diabetes, and the rest of her home medications were resumed. Patient agreed to go to [facility] for rehab, thus patient is to be discharged with standing dose of amiodorone 200 mg daily, Cardizem 60 po bid, and atenolol bid for the atrial fibrillation. Diet: heart healthy Activity: resume baseline activity - Date & Time of H&P Date of H&P: 08/24/18 Time of H&P: 14:07 Discharge Exam - Head Exam Head Exam: ATRAUMATIC, NORMAL INSPECTION, NORMOCEPHALIC - Eye Exam Eye Exam: EOMI, Normal appearance, PERRL Pupil Exam: NORMAL ACCOMODATION - ENT Exam ENT Exam: Mucous Membranes Moist - Neck Exam Neck exam: Normal Inspection - Respiratory Exam Respiratory Exam: Clear to PA & Lateral, NORMAL BREATHING PATTERN, UNREMARKABLE. absent: Prolonged Expiratory Phase, Rales, Rhonchi, Wheezes, Respiratory Distress, Stridor - Cardiovascular Exam Cardiovascular Exam: Irregular Rhythm, RRR, +S1, +S2. absent: Gallop, JVD, Rubs, Systolic Murmur - GI/Abdominal Exam GI & Abdominal Exam: Normal Bowel Sounds, Unremarkable. absent: Distended, Guarding, Rebound, Rigid, Soft, Tenderness - Extremities Exam Extremities exam: normal inspection - Back Exam Back exam: NORMAL INSPECTION - Neurological Exam Neurological exam: Alert, Oriented x3, Reflexes Normal - Psychiatric Exam Psychiatric exam: Normal Affect, Normal Mood - Skin Skin Exam: Dry, Intact, Normal Color, Warm Discharge Plan - Follow Up Plan Condition: GOOD Disposition: REHAB FACILITY/REHAB UNIT Instructions: Atrial Fibrillation (DC), Amiodarone, Benzonatate, Diltiazem Additional Instructions: Patient is to be discharged to [facility]. Patient is now on Cardizem 60 tid, and amiodorone instead of verapamil. Resume the rest of medications. Please return if the symptoms worsens. Referrals: Gail Modi MD [Staff Provider] - Phil Singer MD [Primary Care Provider] - <Tod Woodruff - Last Filed: 08/29/18 18:24> Provider - Provider Date of Admission: 08/24/18 12:48 Attending physician: Tod Woodruff MD Primary care physician: Phil Singer MD Consults: 08/24/18 12:51 Cardiology Consult Stat Comment: Consulting Provider: Gail Modi Consulting Physician: Gail Modi Reason for Consult: chronic a fib 08/24/18 15:34 Social Work Referral Routine Comment: d/c plan pt wants more homemaker days Physician Instructions: Reason For Exam: assess 08/24/18 15:35 Nursing Referral for Palliative Care Routine Comment: afib Physician Instructions: Reason For Exam: assess 08/24/18 16:03 Case Management Referral Routine Comment: Physician Instructions: Reason For Exam: Reason for Referral: Discharge Planning Inpatient OPTOMETRIC TECHNICIAN Core Measures Referral Routine Comment: afib Physician Instructions: Reason For Exam: assess Transition In Care/Readmission Reduction Routine Comment: afib Physician Instructions: Reason For Exam: assess Hospital Course - Lab Results Lab Results: Micro Results 08/24/18 20:49 Blood Blood Culture - Preliminary NO GROWTH AFTER 4 DAYS 08/24/18 19:30 Blood Blood Culture - Preliminary NO GROWTH AFTER 4 DAYS 08/24/18 22:55 Urine,Clean Catch Urine Culture - Final Escherichia Coli Enterococcus Faecalis Most Recent Lab Values WBC 10.2 10^3/uL (4.5-11.0) 08/28/18 06:30 RBC 4.50 10^6/uL (3.5-6.1) 08/28/18 06:30 Hgb 14.5 g/dL (12.0-16.0) 08/28/18 06:30 Hct 43.0 % (36.0-48.0) 08/28/18 06:30 MCV 95.6 fl (80.0-105.0) 08/28/18 06:30 MCH 32.2 pg (25.0-35.0) 08/28/18 06:30 MCHC 33.7 g/dl (31.0-37.0) 08/28/18 06:30 RDW 13.5 % (11.5-14.5) 08/28/18 06:30 Plt Count 240 10^3/uL (120.0-450.0) 08/28/18 06:30 MPV 12.1 fl (7.0-11.0) H 08/28/18 06:30 Neut % (Auto) 66.0 % (50.0-68.0) 08/28/18 06:30 Lymph % (Auto) 17.3 % (22.0-35.0) L 08/28/18 06:30 Banner % (Auto) 14.8 % (1.0-6.0) H 08/28/18 06:30 Eos % (Auto) 1.7 % (1.5-5.0) 08/28/18 06:30 Baso % (Auto) 0.2 % (0.0-3.0) 08/28/18 06:30 Lymph # (Auto) 1.8 (1.2-3.4) 08/28/18 06:30 Banner # (Auto) 1.5 (0.1-0.6) H 08/28/18 06:30 Eos # (Auto) 0.2 (0.0-0.7) 08/28/18 06:30 Baso # (Auto) 0.02 K/mm3 (0.0-2.0) 08/28/18 06:30 Absolute Neuts (auto) 6.74 (1.4-6.5) H 08/28/18 06:30 PT 18.7 SECONDS (9.4-12.5) H 08/24/18 11:45 INR 1.65 08/24/18 11:45 APTT 37.9 Seconds (26.9-38.3) 08/24/18 11:45 Sodium 137 mmol/L (132-148) 08/28/18 06:30 Potassium 4.1 mmol/L (3.6-5.0) 08/28/18 06:30 Chloride 99 mmol/L (98-107) 08/28/18 06:30 Carbon Dioxide 32 mmol/L (21-33) 08/28/18 06:30 Anion Gap 11 (10-20) 08/28/18 06:30 BUN 22 mg/dL (7-21) H 08/28/18 06:30 Creatinine 0.9 mg/dl (0.7-1.2) 08/28/18 06:30 Est GFR ( Amer) > 60 08/28/18 06:30 Est GFR (Non-Af Amer) > 60 08/28/18 06:30 POC Glucose (mg/dL) 201 mg/dL (65-110) H 08/25/18 07:36 Random Glucose 186 mg/dL (70-110) H 08/28/18 06:30 Calcium 9.4 mg/dL (8.4-10.5) 08/28/18 06:30 Phosphorus 3.8 mg/dL (2.5-4.5) 08/28/18 06:30 Magnesium 1.7 mg/dL (1.7-2.2) 08/28/18 06:30 Total Bilirubin 0.6 mg/dL (0.2-1.3) 08/27/18 06:10 AST 17 U/L (14-36) 08/27/18 06:10 ALT 21 U/L (7-56) 08/27/18 06:10 Alkaline Phosphatase 64 U/L (38-126) 08/27/18 06:10 Troponin I < 0.01 ng/mL 08/24/18 11:45 NT-Pro-B Natriuret Pep 1660 pg/mL (0-450) H 08/24/18 11:45 Total Protein 6.2 g/dL (5.8-8.3) 08/27/18 06:10 Albumin 3.3 g/dL (3.0-4.8) 08/27/18 06:10 Globulin 2.8 gm/dL 08/27/18 06:10 Albumin/Globulin Ratio 1.2 (1.1-1.8) 08/27/18 06:10 TSH 3rd Generation 1.01 mIU/mL (0.46-4.68) 08/25/18 07:00 Urine Color Yellow (YELLOW) 08/24/18 16:00 Urine Appearance Clear (CLEAR) 08/24/18 16:00 Urine pH 6.0 (4.7-8.0) 08/24/18 16:00 Ur Specific Tiro 1.025 (1.005-1.035) 08/24/18 16:00 Urine Protein Negative mg/dL (<30 mg/dL) 08/24/18 16:00 Urine Glucose (UA) >=1000 mg/dL (NEGATIVE) 08/24/18 16:00 Urine Ketones Negative mg/dL (NEGATIVE) 08/24/18 16:00 Urine Blood Negative (NEGATIVE) 08/24/18 16:00 Urine Nitrate Negative (NEGATIVE) 08/24/18 16:00 Urine Bilirubin Negative (NEGATIVE) 08/24/18 16:00 Urine Urobilinogen 0.2 E.U./dL (<1 E.U./dL) 08/24/18 16:00 Ur Leukocyte Esterase Negative Rk/uL (NEGATIVE) 08/24/18 16:00 - Hospital Course Hospital Course: Pt seen and examined by me. I have reviewed the note of the medical transcription supervisor and I agree with it. I have discussed the assessment and plan with the resident. I have reviewed the medications and the last labs.
[2018-08-29] MEDS ORDERED: Levalbuterol 0.63 MG/3 ML Inhal Soln UD IH STA (08:48)
[2018-08-29] MEDS: Insulin Lispro 1 UNITS/0.01 ML SC SCH ×2 (09:40→14:18)
[2018-08-29] MEDS: Insulin Lispro (humaLOG) LOW Coverage SC SCH ×2 (09:41→14:23)
[2018-08-29] MEDS: Levothyroxine 75 MCG TAB PO SCH (09:50)
[2018-08-29 12:43] VITALS: RESP 18; TEMP 98.1
[2018-08-29 14:25] VITALS: BP 120/80; PULSE 106
--- NOTE | 2018-08-30 02:39 | DS ---
HOSPITAL COURSE: The patient was seen and examined. I do agree with the note of the manager medical. I was involved with plan of care. The patient had atrial fibrillation with rapid rate. She had improvement of her heart rate. She initially was placed on Cardizem drip and her p.o. Cardizem was titrated. She also had increased on Tylenol. The patient is going to be discharged to [facility]. She had been started on amiodarone with the and now is going to make the stenosis. Dr. Modi has cleared her for discharge. She currently is comfortable. She had diabetes type 2 which is controlled. She has COPD and gets inhalers, DuoNeb as needed. The patient is going to go to [facility]. I will continue to follow her there. CONDITION: Stable. ACTIVITIES: Increase as tolerated. Tod Woodruff MD
== END 2018-08-29 17:41 | DRG 309 ==
LOC: ED 11:18 → ERH 12:48 → 2RNO 14:24
PROVIDERS: ADMIT Internal Medicine Nephrology; ATTEND Internal Medicine Nephrology
DX: I48.2 Chronic atrial fibrillation (principal); J44.1 Chronic obstructive pulmonary disease with (acute) exacerbation; N39.3 Stress incontinence (female) (male); E11.9 Type 2 diabetes mellitus without complications; E03.9 Hypothyroidism, unspecified; I25.10 Atherosclerotic heart disease of native coronary artery without angina pectoris; D72.829 Elevated white blood cell count, unspecified; E83.42 Hypomagnesemia; E66.9 Obesity, unspecified; Z68.30 Body mass index [BMI] 30.0-30.9, adult; Z86.73 Personal history of transient ischemic attack (TIA), and cerebral infarction without residual deficits; Z79.01 Long term (current) use of anticoagulants; Z79.4 Long term (current) use of insulin; Z95.5 Presence of coronary angioplasty implant and graft; Z79.890 Hormone replacement therapy; Z90.710 Acquired absence of both cervix and uterus; Z83.3 Family history of diabetes mellitus; Z82.49 Family history of ischemic heart disease and other diseases of the circulatory system